=== PATIENT | male | born 1960 | race Caucasian/White ===

== ENCOUNTER 2019-11-14 15:55 | Inpatient (IN) ==
--- OUTSIDE RECORDS SUMMARY | 2019-11-14 16:06 | External Medical Summary | Continuity of Care Document ---
:1960 Author Name Idalia M.DCandace Address Unavailable Unavailable , Care Team Providers Name Role Phone Unavailable Unavailable Unavailable Robert HENRY Unavailable Unavailable Unavailable Unavailable Unavailable Problems Nasal ulcer (478.19) (J34.0) Allergies and Adverse Reactions No Known Drug Allergies (Allergy) Medications Aspirin 81 MG TABS , M.D. Refills: 0 Multiple Vitamins TABS , M.D. Refills: 0 Procedures History of Hernia Repair Status: Complet ed Immunizations Immunizations not documented Family History Unknown Family Member Family history of Denial Of Any Significant Status: Active Comments: Family History Medical History Social History - Smoking Status Tobacco smoking consumption unknown Plan of Treatment Planned Observations Planned Goals not documented Results No Known Results Results not documented
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
[2019-11-14 16:37] LABS: Appearance Urine Clear (Clear); Bacteria Urine Automated Negative (Negative); Blood Urine Negative (Negative); Color Urine Dark Yellow; Glucose Urine UA Negative (Negative); Ketones Urine Trace (Negative); Leukocyte Esterase Urine Negative (Negative); Nitrite Urine Negative (Negative); Protein Urine Trace (Negative); RBC Urine Automated 0-4 /hpf (0-4); Specific Gravity Urine 1.032 (1.000-1.030); Urobilinogen Urine Negative (Negative)
[2019-11-14 16:42] LABS: Bilirubin Urine Negative (Negative); Ictotest Urine Negative (Negative)
[2019-11-14 16:45] LABS: Basophils # (auto) 0.03 K/uL (0-0.2); Basophils % (auto) 0.4 %; Eosinophils # (auto) 0.08 K/uL (0-0.5); Eosinophils % (auto) 1.2 %; Hematocrit (blood only) 46.9 % (42-52); Hemoglobin 15.9 g/dL (14.0-18.0); Immature Granulocytes # (auto) 0.01 K/uL (0.00-0.02); Immature Granulocytes % (auto) 0.1 %; Lymphocytes # (auto) 2.68 K/uL (1.2-3.4); Lymphocytes % (auto) 39.7 %; Mean Corpuscular Hemoglobin 31.3 pg (25-34); Mean Corpuscular Hgb Conc 33.9 g/dL (32-36); Mean Corpuscular Volume 92.3 fL (80-100); Mean Platelet Volume 11.7 fL (7.4-10.4); Monocytes # (auto) 0.39 K/uL (0.11-0.59); Monocytes % (auto) 5.8 %; Neutrophils # (auto) 3.56 K/uL (1.4-6.5); Neutrophils % (auto) 52.8 %; Platelet Count 154 K/uL (130-400); RDW Coefficient of Variation 12.6 % (11.5-14.5); RDW Standard Deviation 42.7 fL (36.4-46.3); Red Blood Count 5.08 M/uL (4.7-6.1); White Blood Count 6.75 K/uL (4.8-10.8)
[2019-11-14 17:01] LABS: Albumin Level 4.4 gm/dl (3.4-5.0); BUN Creatinine Ratio 12.2 (10-20); Creatinine Clr Calc Pharmacy 60.9 ml/min; Est GFR (African American) 75.5; Est GFR (Non-African American) 65.1; Potassium 3.5 mmol/L (3.5-5.1)
[2019-11-14 17:11] LABS: Albumin Globulin Ratio 1.3 (0.9-2); Bilirubin,Total 0.9 mg/dl (0.2-1); Globulin 3.5 gm/dl (2.5-4.0); Thyroid Stimulating Hormone 3.9 uIu/ml (0.300-4.500); Total Protein 7.9 gm/dl (6.4-8.2)
[2019-11-14 17:16] LABS: Acetaminophen < 2 ug/ml (10-30)
[2019-11-14 17:17] LABS: Salicylate < 1.7 mg/dl (2.8-20)
[2019-11-14 17:27] LABS: Amphetamines+Metham, Urine Neg (Neg); Barbiturates, Urine Neg (Neg); Benzodiazepine, Urine Neg (Neg); Cocaine, Urine Neg (Neg); MDMA (Ecstacy), Urine Neg (Neg); Methadone, Urine Neg (Neg); Opiate, Urine Neg (Neg); Phencyclidine, Urine Neg (Neg)
[2019-11-14] MEDS ORDERED: MAGNESIUM HYDROXIDE SUSP 30 ML UDC PO PRN (20:44)
[2019-11-14] MEDS ORDERED: ALUMINUM/MAGNESIUM SUSP 30 ML UDC PO PRN (20:44)
[2019-11-14] MEDS ORDERED: ACETAMINOPHEN 325 MG TAB PO PRN (20:44)
[2019-11-14] MEDS ORDERED: BISMUTH SUBSALICYLATE PER ML OMNICELL CHARGE PO PRN (20:44)
[2019-11-15] MEDS ORDERED: haloperidoL 5 MG TAB PO PRN (09:50)
[2019-11-15] MEDS ORDERED: HALOPERIDOL LACTATE 5 MG/ML 1 ML VIAL IM PRN (09:51)
[2019-11-15] MEDS ORDERED: LORazepam 1 MG TAB PO PRN (09:53)
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
--- NOTE | 2019-11-16 08:34 | Psychiatric Progress Note ---
Date of Service November 16, 2019 Impression / Recommendations Impression 59-year-old gentleman without known prior formalized psychiatric history who presents with several years of worsening paranoia and elaborate systemized delusions regarding [facility] and the government. He demonstrates a manic quality with rapid thought process and speech patterns, and has had poor sleep in the hospital, and underlying bipolar disorder or schizoaffective disorder should be considered in addition to primary thought disorder. It appears he has never been medically worked up for psychosis (and per his he has not seen a physician, dentist or even a coleman in some time due to his paranoia); however symptoms appear likely to be occurring for at least the past few years. He is highly guarded associated with his paranoia and is refusing to participate in assessments, answer questions about the events that led to hospitalization, order to accept any treatment, and agree with the use of medication over objection for treatment of psychosis if needed. We will file for 303 involuntary commitment hearing to be held tomorrow. (1) Unspecified psychosis not due to a substance or known physiological condition: 11/14 Patient admitted on an involuntary status to the behavioral health unit for continued assessment and treatment as indicated He will be maintained on every 15 minute safety checks We will continue to expand database Consider neuroimaging for w/u of psychosis prn orders for Ativan and Haldol today. I suspect it is likely that he will require medications over objection before he permits any treatment due to what appears to be severely impaired insight. Patient will be reevaluated tomorrow for psychiatric second opinion regarding need for treatment over objection. -presently patient requires continued inpatient hospitalization for workup and treatment of psychosis which was been recently associated with some violent behavior at home. he is at risk of harm to self and others if discharged prematurely. 11/15 -File for 303 involuntary commitment. -Patient is refusing to consider medication, but has haloperidol and Ativan as needed ordered. Would recommend a trial of olanzapine, and agree with medications over objection as he has severe psychotic symptoms which are impairing his ability to function and placing both himself and others at risk of harm due to his violent behavior at home. -Patient is refused to answer questions about whether or not he has guns, so we will need to get this information from his . At this point he is refusing to sign a release for her or anyone else. -Excuse patient from groups due to the severity of his psychosis and violent behavior. Medically necessary private room room due to the same. Risk Factors Assessment Male: Yes : Yes Health Problems: No Substance Use Disorders: No Previous Attempt: No Previous Psychiatric Hospitalization: No Hopelessness: No Smoker: No Protective Factors Assessment : Yes Employed: No Interval History Identifying Information SAL MAGANA is a 59-year-old M who currently lives locally with his , has a history of no prior known psychiatric hx, and was admitted on 11/14/19 19:58 on a 302 involuntary commitment for paranoia and violence at home. Chief Complaint " It's an insane situation, not worth going through all the details again." Review of Systems Notes Review of systems unable to be completed due to irritability/uncooperative behavior. Sleep Information Total Hours of Sleep: 2.75 Sleep Comments: pt busy writing notes at the beginning of shift. pt stayed in his room most of the shift. pt on q-15 minute checks Meal Information Percent Meal Consumed - Breakfast: 10 Percent Meal Consumed - Lunch: 100 Percent Meal Consumed - Dinner: 100 Subjective Subjective Patient was seen & assessed and interval progress reviewed with treatment team. Staff report he is sleeping very little, has been excused from groups due to psychosis, and spends all of his time writing and doing math problems. He has been resistant to participation in admission assessments, and is refusing all medications. He is refused to sign a release of information for his or anyone else, and is focused on the conspiracy the government has against him. He said he has not been able to get his haircut for 6 months as the government has been involved and interfered in every aspect of his life. On my assessment, the patient was seen in his room, where he was seated on his bed. He initially says he is sleeping well, but then says he slept very little the last 2 nights, which he attributes to caffeine withdrawal. He says he has been spending all of his time "just doing some mathematics," which is what he does during a typical day. 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 He says he was fired from [employer] because of a conspiracy against him, "and now I have lots of free time, so I just do mathematics on my own now." He says that the police brought him to the hospital and he has no idea why, although they told him that his expressed some concerns and they believed he needed a psychological evaluation. He denies that he was violent or aggressive that day were that there was any kind of altercation between himself and his . He refuses to answer questions about why his might of been concerned about him, repeatedly redirecting the conversation toward the conspiracy against him and stating that if any of the hospital staff really care, they would be asking questions about that, not about his behavior. "It is much more important to look at law enforcement in higher education that got me into this mass, you are just trying to fit me into the narrative they need to justify their actions. I'm a [place] citizen, was twice removed from my classroom by police, and fired, and removed from my house by the police, and my guess is that's all illegal. I should be deported, or Social [employer] should be involved." He said he "sounded a little bit odd someone could contact the police and say things, and they would bring you to the hospital, couldn't you just start doing that here neighbors? That seems insane!" He refused to say what allegedly happened that the police were called, stating "it's all manufactured, it's all lies. The higher education of [employer] [facility] [employer] has engaged in the most ridiculous acts." He multiple times demands that I contact [employer] for him to tell them that a [place] citizen is being held illegally by the [facility] government due to information that he has about crimes that were committed "50 years ago." "Look I'm not stupid, okay, I understand the notion that once crimes are committed, they want to cover them up, and people in power create a situation where you look crazy." He r eferences a situation in [place] in the [place], "they can no longer control it, these are crimes that go back 50 years." He references the treatment recommendations and calls them "silly," and becomes increasingly agitated and angry as the assessment progresses. He continues to refuse to discuss the events that precipitated his hospitalization and the specific concerns outlined in the 302 petition and expressed by his . He was informed of the 303 hearing to be scheduled tomorrow, and continues to be angry and sarcastic, stating "it involves children, you need to know that is what you're covering up!" Physical Exam Psychiatric Orientation: alert; + uncooperative Apperance: appropriately dressed, appropriately groomed and appeared stated age Eye Contact: + fair eye contact Motor Behavior: steady gait and station and no abnormal motor movements Irritable, sarcastic tone Affect: + irritable affect Mood: + angry mood Thought Process: + tangential thought process and + looseness of associations Thought Content: + preoccupation, + paranoid, + delusions and + persecution Suicidal Thoughts: denies suicidal thoughts Homicidal Thoughts: denies homicidal thoughts Unclear if memory is intact, as patient refuses to answer most questions regarding recent events Estimated Intelligence: consistent with education level Insight: + severely impaired insight Judgement: + poor judgement Vital Signs (Past 24 Hours) Last Vital Signs Temp 36.6 C 11/16/19 06:52 Pulse 77 11/16/19 06:52 Resp 18 11/16/19 06:52 BP 128/86 11/16/19 06:52 Pulse Ox 98 11/14/19 20:15 Results & Data ([facility]) Current Inpatient Medications Current Inpatient Medications: Current Inpatient Medications Acetaminophen (Tylenol) 650 mg PO Q4H PRN PRN Reason: Headache or Minor Fever Stop: 12/14/19 20:43 Al Hydrox/Mg Hydrox/Simethicone (Maalox) 30 ml PO Q4H PRN PRN Reason: GI Upset Stop: 12/14/19 20:43 Bismuth Subsalicylate (Kaopectate) 15 ml PO PRN PRN PRN Reason: Loose Stool Stop: 12/14/19 20:43 Haloperidol (Haldol) 5 mg PO Q8H PRN PRN Reason: agitation/psychosis Stop: 12/15/19 09:59 Haloperidol Lactate (Haldol) 5 mg IM Q8H PRN PRN Reason: for behavioral emergency Stop: 12/15/19 09:50 Hydroxyzine HCl (Vistaril) 50 mg PO HSZ PRN PRN Reason: Insomnia Stop: 12/14/19 20:43 Hydroxyzine HCl (Vistaril) 25 mg PO Q4H PRN PRN Reason: Anxiety Stop: 12/14/19 20:43 Lorazepam (Ativan) 1 mg PO Q8H PRN PRN Reason: Anxiety/irritability Stop: 12/15/19 09:52 Magnesium Hydroxide (Milk Of Magnesia) 30 ml PO DAILY PRN PRN Reason: Constipation Stop: 12/14/19 20:43 Sodium Chloride ([place] Nasal) 1 - 2 sprays NA PRN PRN PRN Reason: Nasal Dryness/Congestion Stop: 12/14/19 20:43
--- NOTE | 2019-11-17 08:43 | Psychiatric Progress Note ---
Date of Service November 17, 2019 Impression / Recommendations Impression 59-year-old gentleman without known prior formalized psychiatric history who presents with several years of worsening paranoia and elaborate systemized delusions regarding [facility] and the government. He demonstrates a manic quality with rapid thought process and speech patterns, and has had poor sleep in the hospital, and underlying bipolar disorder or schizoaffective disorder should be considered in addition to primary thought disorder. It appears he has never been medically worked up for psychosis (and per his he has not seen a physician, dentist or even a coleman in some time due to his paranoia); however symptoms have been occurring for at least the past few years. He is highly guarded associated with his paranoia and is refusing to participate in assessments, answer questions about the events that led to hospitalization, or to accept any treatment, and will not allow his to be involved in treatment. He is on a 303 involuntary commitment as of today. (1) Unspecified psychosis not due to a substance or known physiological condition: 11/14 Patient admitted on an involuntary status to the behavioral health unit for continued assessment and treatment as indicated He will be maintained on every 15 minute safety checks We will continue to expand database Consider neuroimaging for w/u of psychosis prn orders for Ativan and Haldol today. I suspect it is likely that he will require medications over objection before he permits any treatment due to what appears to be severely impaired insight. Patient will be reevaluated tomorrow for psychiatric second opinion regarding need for treatment over objection. -presently patient requires continued inpatient hospitalization for workup and treatment of psychosis which was been recently associated with some violent behavior at home. he is at risk of harm to self and others if discharged prematurely. 11/15 -File for 303 involuntary commitment. -Patient is refusing to consider medication, but has haloperidol and Ativan as needed ordered. Would recommend a trial of olanzapine, and agree with medications over objection as he has severe psychotic symptoms which are impairing his ability to function and placing both himself and others at risk of harm due to his violent behavior at home. -Patient is refused to answer questions about whether or not he has guns, so we will need to get this information from his . At this point he is refusing to sign a release for her or anyone else. -Excuse patient from groups due to the severity of his psychosis and violent behavior. Medically necessary private room room due to the same. 11/16 involuntary commitment granted. -Patient continues to refuse to allow his to be involved in treatment. He is now not denying that he was aggressive at home, but is refusing to discuss it, and is focused only on the conspiracy which he says led to his behavior. -Continue to consider medications over objection. At this point, we are attempting to engage the patient in treatment volitionally, and the risk of forcing medications at this time is further alienating him. However, if he is unable to engage in any manner, we will need to reconsider medications over objection. -Patient may attend groups if able to maintain appropriate behavioral control. -Patient has still not been willing to complete admission assessments, and has not been willing to provide certain information. Risk Factors Assessment Male: Yes : Yes Health Problems: No Substance Use Disorders: No Previous Attempt: No Previous Psychiatric Hospitalization: No Hopelessness: No Smoker: No Protective Factors Assessment : Yes Employed: No Interval History Identifying Information SAL MAGANA is a 59-year-old M who currently lives locally with his , has a history of no prior known psychiatric hx, and was admitted on 11/14/19 19:58 on a 302 involuntary commitment for paranoia and violence at home. Chief Complaint "I'm just preparing for the meeting." Review of Systems Sleep Information Total Hours of Sleep: 4.5 Sleep Comments: pt spent the first 3 hrs awake in bed, writing on a pad. pt appeared to be asleep @0300 and thereafter. pt on q-15 minute checks Meal Information Percent Meal Consumed - Breakfast: 100 Percent Meal Consumed - Lunch: 100 Percent Meal Consumed - Dinner: 100 Subjective Subjective Patient was seen & assessed and interval progress reviewed with nursing and social work. Staff report he only slept 4.5 hours. He spent much of the day on the phone, talking animatedly about the conspiracies against him. He continues to express delusions and paranoia, stating the county and hospital are part of the conspiracy against him. He is refusing to sign ROIs or participate in admission assessments. He continues to take notes, do math problems, and spend a lot of time on the phone. He has not attended groups or taken any medication. 1 of the counselors met with him and the patient spent 45 minutes attempting to explain why [employer] fired him. He said that it was all a cover up, and that the hospital was also a part of it. He cites many specifics of his case and insisted there was no delusional thinking involved. On my assessment, he was seen in his room where he was seated on the bed writing, and asked to have another 5 minutes to prepare for his commitment hearing. Upon return 5 minutes later, he stated he has prepared a statement that he wants to read his commitme nt hearing, and thinks that it will "clear some things up." He says that he spoke to his yesterday, and has "no trouble with what she wrote, I think when you hear my statement, you'll know what I mean." He denies that he is angry, and states that he and his love one another, and she is fine with him coming home. He continues to refuse to sign a release for her or to allow her to be involved in treatment, saying "that would probably just be used against me by the very people who orchestrated the whole thing." He continues to state that the doctors are being used to silence him as part of a larger conspiracy. He admits he has not been sleeping well the past 3 nights, which he blames on the environment in the hospital, and says he was sleeping 7 hours a night at home. 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 He eventually stated that his stopped working in 2019 when he was fired. He says that after he makes his statement in the hearing, he wants the statement to be distributed "to society, to make people aware, really important that people know that very important people in power have been compelled to act unwittingly." He says he is asked his research attorney to "contact [employer] to find to be a safe haven." He says that many countries outside of [place] are aware of his story, and that we should be more concerned with the events that led to his hospitalization than his specific behaviors. He participated in a 303 hearing and read a statement he had prepared, stating he grew up in [place] in an [place] family, and there was anti-[place] sentiment which led to the government issuing an apology. He referenced [place] declaring war on [place], and the government using that to infiltrate his life in horrible ways. He started documenting this and experienced "episodes of suppression" to keep him quiet, which includes the AMA and "failed medical procedures" that led to him being in the ICU. He says the assessments here and his 's petition are a result of this conspiracy which was "premeditated over decades" and is "an [place] Horror Story." He asked his research attorney to contact [employer] to rescue him from "this continent." He asked to be immediately released from this unit before more irreparable damage occurs. The 303 commitment was granted, and he stated he was not surprised as the decision was made before the hearing. Physical Exam Psychiatric Orientation: alert and cooperative (Partially, vague and evasive with some lines of questioning) Apperance: appropriately dressed (Wearing the same closes yesterday, seated on his bed in no acute distress, writing on a note pad), appropriately groomed and appeared stated age Eye Contact: + fair eye contact Motor Behavior: steady gait and station and no abnormal motor movements Speech: normal rate/rhythm/volume of speech Affect: + blunted affect "Not too bad." Thought Process: + circumstantial thought process, + tangential thought process, + looseness of associations and + perseveration Thought Content: + preoccupation, + paranoid, + delusions and + persecution Suicidal Thoughts: denies suicidal thoughts Homicidal Thoughts: denies homicidal thoughts Hallucinations: no auditory hallucinations Cognition: attention grossly intact and language grossly intact Estimated Intelligence: consistent with education level Insight: + severely impaired insight Judgement: + poor judgement Vital Signs (Past 24 Hours) Last Vital Signs Temp 36.8 C 11/17/19 06:42 Pulse 62 11/17/19 06:43 Resp 18 11/17/19 06:42 BP 126/75 11/17/19 06:43 Pulse Ox 98 11/14/19 20:15 Results & Data ([facility]) Current Inpatient Medications Current Inpatient Medications: Current Inpatient Medications Acetaminophen (Tylenol) 650 mg PO Q4H PRN PRN Reason: Headache or Minor Fever Stop: 12/14/19 20:43 Al Hydrox/Mg Hydrox/Simethicone (Maalox) 30 ml PO Q4H PRN PRN Reason: GI Upset Stop: 12/14/19 20:43 Bismuth Subsalicylate (Kaopectate) 15 ml PO PRN PRN PRN Reason: Loose Stool Stop: 12/14/19 20:43 Haloperidol (Haldol) 5 mg PO Q8H PRN PRN Reason: agitation/psychosis Stop: 12/15/19 09:59 Haloperidol Lactate (Haldol) 5 mg IM Q8H PRN PRN Reason: for behavioral emergency Stop: 12/15/19 09:50 Hydroxyzine HCl (Vistaril) 50 mg PO HSZ PRN PRN Reason: Insomnia Stop: 12/14/19 20:43 Hydroxyzine HCl (Vistaril) 25 mg PO Q4H PRN PRN Reason: Anxiety Stop: 12/14/19 20:43 Lorazepam (Ativan) 1 mg PO Q8H PRN PRN Reason: Anxiety/irritability Stop: 12/15/19 09:52 Magnesium Hydroxide (Milk Of Magnesia) 30 ml PO DAILY PRN PRN Reason: Constipation Stop: 12/14/19 20:43 Sodium Chloride ([place] Nasal) 1 - 2 sprays NA PRN PRN PRN Reason: Nasal Dryness/Congestion Stop: 12/14/19 20:43 Post Discharge Appointments Primary Care Physician Name Of Family Doctor: Dr. Татьяна Torres
--- NOTE | 2019-11-18 08:47 | Psychiatric Progress Note ---
Date of Service November 18, 2019 Impression / Recommendations Impression 59-year-old gentleman without known prior formalized psychiatric history who presents with several years of worsening paranoia and elaborate systemized delusions regarding [facility] and the government. He demonstrates a manic quality with rapid thought process and speech patterns, and has had poor sleep in the hospital, and underlying bipolar disorder or schizoaffective disorder should be considered in addition to primary thought disorder. It appears he has never been medically worked up for psychosis (and per his he has not seen a physician, dentist or even a coleman in some time due to his paranoia); however symptoms have been occurring for at least the past few years. He is highly guarded associated with his paranoia and is refusing to participate in assessments, answer questions about the events that led to hospitalization, or to accept any treatment, and will not allow his to be involved in treatment. He is on a 303 involuntary commitment, and will institute medications over objection today given the severity of his psychosis, complete lack of insight, and inability to engage in treatment as a result. (1) Unspecified psychosis not due to a substance or known physiological condition: 11/14 Patient admitted on an involuntary status to the behavioral health unit for continued assessment and treatment as indicated He will be maintained on every 15 minute safety checks We will continue to expand database Consider neuroimaging for w/u of psychosis prn orders for Ativan and Haldol today. I suspect it is likely that he will require medications over objection before he permits any treatment due to what appears to be severely impaired insight. Patient will be reevaluated tomorrow for psychiatric second opinion regarding need for treatment over objection. -presently patient requires continued inpatient hospitalization for workup and treatment of psychosis which was been recently associated with some violent behavior at home. he is at risk of harm to self and others if discharged prematurely. 11/15 -File for 303 involuntary commitment. -Patient is refusing to consider medication, but has haloperidol and Ativan as needed ordered. Would recommend a trial of olanzapine, and agree with medications over objection as he has severe psychotic symptoms which are impairing his ability to function and placing both himself and others at risk of harm due to his violent behavior at home. -Patient is refused to answer questions about whether or not he has guns, so we will need to get this information from his . At this point he is refusing to sign a release for her or anyone else. -Excuse patient from groups due to the severity of his psychosis and violent behavior. Medically necessary private room room due to the same. 11/16 - involuntary commitment granted. -Patient continues to refuse to allow his to be involved in treatment. He is now not denying that he was aggressive at home, but is refusing to discuss it, and is focused only on the conspiracy which he says led to his behavior. -Continue to consider medications over objection. At this point, we are at tempting to engage the patient in treatment volitionally, and the risk of forcing medications at this time is further alienating him. However, if he is unable to engage in any manner, we will need to reconsider medications over objection. -Patient may attend groups if able to maintain appropriate behavioral control. -Patient has still not been willing to complete admission assessments, and has not been willing to provide certain information. 11/17 -Recommend medications over objection, as the patient is unable to engage in treatment due to the severity of his psychosis and lack of insight, and remains at imminent risk of harm to others, specifically his , if his symptoms remain untreated. He is floridly delusional, now implicating hospital staff in his delusions. He is not able to work as a result of his psychosis, and his is not able to work due to having to supervise him, and is fearful of him given his escalating violence at home. He continues to refuse to allow her to be involved in treatment, is not attending groups, and is refusing to even discuss medication options. Dr. Duarte recommended medications over objection, and I agree, as the patient is unlikely to improve without antipsychotic medication. -Start olanzapine Zydis 5 mg daily, with a 5 mg IM backup for refusal. Order FLP and FG tomorrow for baseline on an atypical antipsychotic. He will also need a medical work-up of psychosis once he is more cooperative, including brain MRI. -Ongoing poor sleep, staff will limit bright lights near his room at night, and if he can be compliant with medication, can move olanzapine to bedtime to assist with sleep. Giving during the day initially to allow for adequate staff in case of need for physical hold or restraint to receive medication. Risk Factors Assessment Male: Yes : Yes Do You Have Access To A Gun?: No ( denies that they have any guns at home) Health Problems: No Mental Health Diagnoses: Yes Substance Use Disorders: No Previous Attempt: No Previous Psychiatric Hospitalization: No Hopelessness: No Smoker: No Protective Factors Assessment : Yes Responsible for Young Children: No Employed: No Stable Relationships: No ( is supportive, but fearful of him due to his violence towards her.) Good Rapport with Provider: No (No outpatient providers.) Interval History Identifying Information SAL MAGANA is a 59-year-old M who currently lives locally with his , has a history of no prior known psychiatric hx, and was admitted on 11/14/19 19:58 on a 302 involuntary commitment for paranoia and violence at home. Chief Complaint " My focus right now is to find a way to get out of here and tell my story and get protection". Review of Systems Sleep Information Total Hours of Sleep: 4 Sleep Comments: read and wrote on his papers/tablet out in the day area then in his room in bed. he was asleep on 0200 rounds. Meal Information Percent Meal Consumed - Breakfast: 100 Percent Meal Consumed - Lunch: 100 Percent Meal Consumed - Dinner: 100 Subjective Subjective Patient was seen & assessed and interval progress reviewed with treatment team. Staff report his was contacted and informed of the results of the 303 hearing. She reported ongoing fears for her safety, as patient is impulsive, aggressive, and violent, and stated a plan to resume contact with [facility]. She confirmed that there are no guns at home, and stated she does not want the patient to go to [facility] or for him to be homeless, and that they may move to [place] to live with his brother, as they are currently not working and living off their senior living savings. The patient spent most of the day yesterday in his room, writing in a notebook, with superficial responses to staff attempts to engage him in treatment. He refused to attend groups, sign a release for his or anyone else, or discuss events that led to his hospitalization. He continues to sleep very little, 4 hours last night. On my assessment today, he states that he is only concerned with how to get out of the hospital, and is hoping that [employer] will get involved and will remove him to an embassy in a foreign country where he will be safe and will be able to "get my story out." He says "there is a massive and growing effort to stop me from telling the story," repeatedly referencing that "they" are conspiring against him, and when asked where he thinks he will be safe, says "perhaps [place] or somewhere in [place] where there is an interest in protecting free speech, my fear is the [place] effort to stop the story from being told." When asked to "they" is, he says this includes "higher education, [employer], the [employer] police, and the [employer] police," as [employer] fired him, [employer]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 He states that these things "really happened, this is not delusional." He says he has evidence that there is a vast conspiracy against him, and gives an example of documents he has that prove 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 He continues to adamantly refused to discuss his behavior at home that led to his concerns in this hospitalization, and becomes hostile and defensive whenever this is brought up, stating "clearly her agenda is to push the story, you nods her head and move onto things that are a consequence of that. Of course of University does these things and destroys a career, of course someone is going to get angry." He a ccuses the [place] of "creating a narrative of an angry, hostile person, that is what they need, and you are just furthering that. Your agenda is to help the country. I have made the allegation that the [employer] violated the Hippocratic oath in order to silence me and covered up for the country, and you are employed by the [employer], so this is a conflict of interest! You are hired and paid by the [facility] try to create a narrative about me. The people that need to see therapist with the people who set this whole thing up." He adamantly refuses to engage in a discussion of his violent behavior and his 's concerns, and refuses to discuss medication options, repeatedly stating he is not going to take medications, that if we force him to take medications, "I will make this as horrible for you as I can." He then stated he " made my final statement, I am not going to say anymore." Informed him of recommendations for medications over objection, and inform nursing staff. Physical Exam Psychiatric Orientation: alert; + uncooperative Hostile and accusatory Apperance: appropriately dressed (Wearing the same close for the past 3 days), appropriately groomed and appeared stated age Eye Contact: good eye contact Motor Behavior: steady gait and station and no abnormal motor movements Angry tone, increasingly loud, mildly pressured Affect: + irritable affect, + angry affect and + constricted affect Thought Process: + circumstantial thought process, + tangential thought process and + perseveration (On delusions of persecution) Thought Content: + preoccupation, + paranoid, + delusions and + persecution Refuses to discuss acts of violence against his prior to admission Refuses to answer Cognition: language grossly intact Memory impaired by psychosis. Estimated Intelligence: consistent with education level Insight: + severely impaired insight Judgement: + impaired judgement Vital Signs (Past 24 Hours) Last Vital Signs Temp 36.5 C 11/18/19 06:39 Pulse 65 11/18/19 06:40 Resp 18 11/18/19 06:39 BP 121/79 11/18/19 06:40 Pulse Ox 98 11/14/19 20:15 Results & Data ([facility]) Current Inpatient Medications Current Inpatient Medications: Current Inpatient Medications Acetaminophen (Tylenol) 650 mg PO Q4H PRN PRN Reason: Headache or Minor Fever Stop: 12/14/19 20:43 Al Hydrox/Mg Hydrox/Simethicone (Maalox) 30 ml PO Q4H PRN PRN Reason: GI Upset Stop: 12/14/19 20:43 Bismuth Subsalicylate (Kaopectate) 15 ml PO PRN PRN PRN Reason: Loose Stool Stop: 12/14/19 20:43 Haloperidol (Haldol) 5 mg PO Q8H PRN PRN Reason: agitation/psychosis Stop: 12/15/19 09:59 Haloperidol Lactate (Haldol) 5 mg IM Q8H PRN PRN Reason: for behavioral emergency Stop: 12/15/19 09:50 Hydroxyzine HCl (Vistaril) 50 mg PO HSZ PRN PRN Reason: Insomnia Stop: 12/14/19 20:43 Hydroxyzine HCl (Vistaril) 25 mg PO Q4H PRN PRN Reason: Anxiety Stop: 12/14/19 20:43 Lorazepam (Ativan) 1 mg PO Q8H PRN PRN Reason: Anxiety/irritability Stop: 12/15/19 09:52 Magnesium Hydroxide (Milk Of Magnesia) 30 ml PO DAILY PRN PRN Reason: Constipation Stop: 12/14/19 20:43 Sodium Chloride ([place] Nasal) 1 - 2 sprays NA PRN PRN PRN Reason: Nasal Dryness/Congestion Stop: 12/14/19 20:43 Post Discharge Appointments Primary Care Physician Name Of Family Doctor: Dr. Татьяна Torres
[2019-11-18] MEDS: OLANZAPINE ZYDIS 5 MG ORALLY DIS. TAB PO SCH ×2 (11:30→11:31)
[2019-11-18] MEDS: OLANZapine 10 MG/2.1 ML SDV IM PRN (11:31)
[2019-11-19 09:09] LABS: Glucose Fasting 90 mg/dl (70-99)
[2019-11-19 09:16] LABS: Chol HDL Ratio 4; Cholesterol 181 mg/dl (0-200); HDL Cholesterol 41 mg/dl; LDL Cholesterol Calculated 102 mg/dl; Triglycerides 188 mg/dl (0-150); VLDL Cholesterol 38 mg/dl
[2019-11-19] MEDS: OLANZapine 10 MG/2.1 ML SDV IM PRN (09:30)
[2019-11-19] MEDS: OLANZAPINE ZYDIS 5 MG ORALLY DIS. TAB PO SCH (09:47)
--- NOTE | 2019-11-19 11:01 | Psychiatric Progress Note ---
Date of Service November 19, 2019 Impression / Recommendations Impression 59-year-old gentleman without known prior formalized psychiatric history who presents with several years of worsening paranoia and elaborate systemized delusions regarding [facility] and the government. He demonstrates a manic quality with rapid thought process and speech patterns, and has had poor sleep in the hospital, and underlying bipolar disorder or schizoaffective disorder should be considered in addition to primary thought disorder. It appears he has never been medically worked up for psychosis (and per his he has not seen a physician, dentist or even a coleman in some time due to his paranoia); however symptoms have been occurring for at least the past few years. He is highly guarded associated with his paranoia and is refusing to participate in assessments, answer questions about the events that led to hospitalization, or to accept any treatment, and will not allow his to be involved in treatment. He is on a 303 involuntary commitment, with opinions for medications over objection appropriately provided. Pt has been cooperative with daily IM injections of olanzapine - declining offer for PO medications. He continues to be floridly psychotic, demonstrating lack of insight and inability to appropriately engage in treatment at this time. (1) Unspecified psychosis not due to a substance or known physiological condition: 11/14 Patient admitted on an involuntary status to the behavioral health unit for continued assessment and treatment as indicated He will be maintained on every 15 minute safety checks We will continue to expand database Consider neuroimaging for w/u of psychosis prn orders for Ativan and Haldol today. I suspect it is likely that he will require medications over objection before he permits any treatment due to what appears to be severely impaired insight. Patient will be reevaluated tomorrow for psychiatric second opinion regarding need for treatment over objection. -presently patient requires continued inpatient hospitalization for workup and treatment of psychosis which was been recently associated with some violent behavior at home. he is at risk of harm to self and others if discharged prematurely. 11/15 -File for 303 involuntary commitment. -Patient is refusing to consider medication, but has haloperidol and Ativan as needed ordered. Would recommend a trial of olanzapine, and agree with medications over objection as he has severe psychotic symptoms which are impairing his ability to function and placing both himself and others at risk of harm due to his violent behavior at home. -Patient is refused to answer questions about whether or not he has guns, so we will need to get this information from his . At this point he is refusin g to sign a release for her or anyone else. -Excuse patient from groups due to the severity of his psychosis and violent behavior. Medically necessary private room room due to the same. 11/16 - involuntary commitment granted. -Patient continues to refuse to allow his to be involved in treatment. He is now not denying that he was aggressive at home, but is refusing to discuss it, and is focused only on the conspiracy which he says led to his behavior. -Continue to consider medications over objection. At this point, we are attempting to engage the patient in treatment volitionally, and the risk of forcing medications at this time is further alienating him. However, if he is unable to engage in any manner, we will need to reconsider medications over objection. -Patient may attend groups if able to maintain appropriate behavioral control. -Patient has still not been willing to complete admission assessments, and has not been willing to provide certain information. 11/17 -Recommend medications over objection, as the patient is unable to engage in treatment due to the severity of his psychosis and lack of insight, and remains at imminent risk of harm to others, specifically his , if his symptoms remain untreated. He is floridly delusional, now implicating hospital staff in his delusions. He is not able to work as a result of his psychosis, and his is not able to work due to having to supervise him, and is fearful of him given his escalating violence at home. He continues to refuse to allow her to be involved in treatment, is not attending groups, and is refusing to even discuss medication options. Dr. Duarte recommended medications over objection, and I agree, as the patient is unlikely to improve without antipsychotic medication. -Start olanzapine Zydis 5 mg daily, with a 5 mg IM backup for refusal. Order FLP and FG tomorrow for baseline on an atypical antipsychotic. He will also need a medical work-up of psychosis once he is more cooperative, including brain MRI. -Ongoing poor sleep, staff will limit bright lights near his room at night, and if he can be compliant with medication, can move olanzapine to bedtime to assist with sleep. Giving during the day initially to allow for adequate staff in case of need for physical hold or restraint to receive medication. / - Continue olanzapine 5mg daily (offering PO Zydis with IM for refusal) - medications over objection, though patient has been cooperative with his preference for IM administration - Pt offered again PO olanzapine, with the eventual option of converting the medication to HS dosing if he continues to be cooperative - as he reports sedation after receiving the medication - Pt remains delusional and paranoid, unable to discuss examples of how we can assist him during his stay - Maintain MNPR due to level of psychosis - Fasting glucose - wnl at 90; triglycerides elevated at 188, remainder of lipid panel wnl - Continue attempts to coordinate care with patient's Risk Factors Assessment Male: Yes : Yes Do You Have Access To A Gun?: No ( denies that they have any guns at home) Health Problems: No Mental Health Diagnoses: Yes Substance Use Disorders: No Previous Attempt: No Previous Psychiatric Hospitalization: No Hopelessness: No Smoker: No Protective Factors Assessment : Yes Responsible for Young Children: No Employed: No Stable Relationships: No ( is supportive, but fearful of him due to his violence towards her.) Good Rapport with Provider: No (No outpatient providers.) Interval History Identifying Information SAL MAGANA is a 59-year-old M who currently lives locally with his , has a history of no prior known psychiatric hx, and was admitted on 11/14/19 19:58 on a 302 involuntary commitment for paranoia and violence at home. Chief Complaint "Oh, um. Hi. What's your name again?" Review of Systems Notes Constitutional: reports fatigue after receiving olanzapine injection Cardiovascular: denied Respiratory: denied Gastrointestinal: denied Neurological: denied Psychiatric: denies symptoms other than stated above Total of at least 10 systems reviewed, pertinent positives as above and in HPI. Sleep Information Total Hours of Sleep: 4.75 Sleep Comments: pt NPO during the night. pt on q-15 minute checks. Meal Information Percent Meal Consumed - Breakfast: 100 Percent Meal Consumed - Lunch: 100 Percent Meal Consumed - Dinner: 100 Subjective Subjective Patient was seen & assessed and interval progress reviewed with nursing and social work. Staff report the patient has been largely withdrawn to his room, writing or completing math equations. Pt has been cooperative with medications over objection, regularly choosing IM injections despite offer for PO Zyprexa Zydis. Pt did disclose to staff yesterday that he believes there was a chip inserted into his brain, but did not provide details on this. Pt was seen today to assess progress since admission. He did cooperate with receiving IM Zyprexa, but continues to report he does not feel he requires medications. Pt states that the medication does cause him to feel drowsy, but denies other side effects at this time. As it was this provider's first encounter with the patient directly, he took the opportunity to inform this PA-C of the circumstances leading to his admission. We spoke at great length about his perception that he is being manipulated by the [employer] administration and government officials - going as far as to state that the [facility] and [facility] representatives are in on the scheme as well. When asked about his thoughts on his admission thus far, he states "well, I'm not really surprised. When you've been dealing with these things for so many years, it only fits with the sequence of events that you would be dragged out of your home by police and brought to a psychiatric cheema." Pt states that to get angry about his admission would only be "playing into the narrative they are writing." He did not verbalize any reports that he believes staff to be involved in the scheme he believes is being plotted against him, and multiple times states "I know you all are skilled individuals and just doing your jobs." This provider did inquire of the patient what he believes the next steps of this process to be (i.e. treatment on the unit, planning for discharge, affiliation with the University, etc.). Pt states that "as long as they continue to write this narrative against me, and these plans keep coming from such a dark place, there will be no hope that anything can change." Pt did mention several times that he is hopeful to get in contact with [employer] as he believes his only options would be to leave the country entirely. This provider explained to the patient that the core of our treatment is safety - and attempted to discuss his agitation and aggression prior to admission. We discussed that our role, at the very least, would be attempting to ensure safety to self and others within his home in order to consider discharge. Pt continues to not take ownership for his aggressive actions prior to admission, stating that he has been provoked by the individuals against him and that "this is all part of their attempts to continue to write the narrative." Pt did not feel any interventions for stress/anger management would be effective, and simply stated "unless you can get to the core of the government's involvement in this conspiracy, there is nothing you can do for me." At one point during our conve rsation, the patient pulled out a stack of 15-30 pieces of notebook paper from under his pillow - all covered with mathematical equations. Pt was reminded that at this time, it is felt that medications are an essential part of his treatment. He was reminded that he has the option to choose oral medications as opposed to the IM injections. He continues to feel as though "picking up a pill from someone's hand and willingly putting it into my mouth demonstrates a level of voluntary action that I am not interested in conveying. Have I not been cooperative with the injections? Is there an issue?" This provider stated that their was not, and that we will simply continue to offer oral medication. We discussed that if he continues to be cooperative with treatment, consideration to adjust his dosing to bedtime may be pursued - as he does report daytime fatigue from the current morning administration. Pt denied other needs at this time. Physical Exam Psychiatric Orientation: alert and + guarded (superficially cooperative ) Apperance: appropriately dressed and appropriately groomed (longer skinner hair, appearing clean) Eye Contact: good eye contact Motor Behavior: no abnormal motor movements (observed while sitting upright in bed) Speech: + pressured speech (hyperverbal, though not rapid - calm/polite tone) Affect: + blunted affect and + constricted affect Mood: no depressed mood and no anxious mood Thought Process: + circumstantial thought process and + perseveration Thought Content: + paranoid, + delusions and + persecution Suicidal Thoughts: denies suicidal thoughts Homicidal Thoughts: denies homicidal thoughts Estimated Intelligence: + above average estimated intelligence Insight: + severely impaired insight Judgement: + impaired judgement Vital Signs (Past 24 Hours) Last Vital Signs Temp 36.5 C 11/19/19 06:51 Pulse 67 11/19/19 06:52 Resp 18 11/19/19 06:51 BP 126/83 11/19/19 06:52 Pulse Ox 98 11/14/19 20:15 Results & Data ([facility]) Laboratory Results Laboratory Results - last 24 hr 11/19/19 08:08 Fasting Glucose 90 Triglycerides 188 H Cholesterol 181 LDL Cholesterol, Calc 102 VLDL Cholesterol, Calc 38 HDL Cholesterol 41 Cholesterol/HDL Ratio 4 Current Inpatient Medications Current Inpatient Medications: Current Inpatient Medications Acetaminophen (Tylenol) 650 mg PO Q4H PRN PRN Reason: Headache or Minor Fever Stop: 12/14/19 20:43 Al Hydrox/Mg Hydrox/Simethicone (Maalox) 30 ml PO Q4H PRN PRN Reason: GI Upset Stop: 12/14/19 20:43 Bismuth Subsalicylate (Kaopectate) 15 ml PO PRN PRN PRN Reason: Loose Stool Stop: 12/14/19 20:43 Haloperidol (Haldol) 5 mg PO Q8H PRN PRN Reason: agitation/psychosis Stop: 12/15/19 09:59 Haloperidol Lactate (Haldol) 5 mg IM Q8H PRN PRN Reason: for behavioral emergency Stop: 12/15/19 09:50 Hydroxyzine HCl (Vistaril) 50 mg PO HSZ PRN PRN Reason: Insomnia Stop: 12/14/19 20:43 Hydroxyzine HCl (Vistaril) 25 mg PO Q4H PRN PRN Reason: Anxiety Stop: 12/14/19 20:43 Lorazepam (Ativan) 1 mg PO Q8H PRN PRN Reason: Anxiety/irritability Stop: 12/15/19 09:52 Magnesium Hydroxide (Milk Of Magnesia) 30 ml PO DAILY PRN PRN Reason: Constipation Stop: 12/14/19 20:43 Olanzapine (Zyprexa Zydis Od) 5 mg PO QAM [facility] Stop: 12/18/19 09:59 Last Admin: 11/19/19 09:47 Dose: Not Given Documented by: Olanzapine (Zyprexa) 5 mg IM DAILY PRN PRN Reason: refusal of PO medication Stop: 12/18/19 09:59 Last Admin: 11/19/19 09:30 Dose: 5 mg Documented by: Sodium Chloride (Benld Nasal) 1 - 2 sprays NA PRN PRN PRN Reason: Nasal Dryness/Congestion Stop: 12/14/19 20:43 Post Discharge Appointments Primary Care Physician Name Of Family Doctor: Dr. Татьяна Torres
[2019-11-20] MEDS: OLANZAPINE ZYDIS 5 MG ORALLY DIS. TAB PO SCH (09:44)
[2019-11-20] MEDS: OLANZapine 10 MG/2.1 ML SDV IM PRN ×2 (09:53→21:47)
--- NOTE | 2019-11-20 14:36 | Psychiatric Progress Note ---
Date of Service November 20, 2019 Impression / Recommendations Impression 59-year-old gentleman without known prior formalized psychiatric history who presents with several years of worsening paranoia and elaborate systemized delusions regarding [facility] and the government. He demonstrates a manic quality with rapid thought process and speech patterns, and has had poor sleep in the hospital, and underlying bipolar disorder or schizoaffective disorder should be considered in addition to primary thought disorder. It appears he has never been medically worked up for psychosis (and per his he has not seen a physician, dentist or even a coleman in some time due to his paranoia); however symptoms have been occurring for at least the past few years. He is highly guarded associated with his paranoia and is refusing to participate in assessments, answer questions about the events that led to hospitalization, or to accept any treatment, and will not allow his to be involved in treatment. He is on a 303 involuntary commitment, with opinions for medications over objection appropriately provided. Pt has been cooperative with daily IM injections of olanzapine - declining offer for PO medications. He continues to be floridly psychotic, demonstrating lack of insight and inability to appropriately engage in treatment at this time. As of 11/20/2019, the patient was felt to be more pleasant and cooperative. At one point he even considered signing his treatment plan while pointing out that he was aware that signing the document did not mean that he was in agreement with that and, instead, that it was simply acknowledging that we have a plan and have told him about it. However, in the end, he said that he he fears that signing it would suggest that he was in agreement with the problem list and that he requires treatment. We may be seeing some improvement in response to the use of olanzapine 5 mg daily (given intramuscularly based on a medication over objection order). He continues to show symptoms that have a manic quality, in cluding fairly grandiose delusions (he believes that he will somehow bring down the [place] [employer] government and force them to be responsible for the crimes), he is sleeping poorly, his speech is mildly pressured and his thoughts are expressed rapidly and in a circumferential or tangential fashion much of the time. His affect also is fairly expansive. Although the patient absolutely insists that he has no psychiatric illness and that, as he put it, "maybe the staff needs to take the medicine not me," we suspect that the patient may have at least some fleeting insight into the fact that something is wrong. He tells us that he does not need treatment and wants to go home, but continues to engage in the exact behaviors that he has been told will complicate and, therefore, delay his discharge. Although uncooperative with medications, the patient has not engaged in overt dangerous behaviors on the unit. The ongoing concern has to do with his 's description of his behaviors at home, which are believed to be indirect response to, and as a direct function of his mental illness. (1) Unspecified psychosis not due to a substance or known physiological condition: 11/14 Patient admitted on an involuntary status to the behavioral health unit for continued assessment and treatment as indicated He will be maintained on every 15 minute safety checks We will continue to expand database Consider neuroimaging for w/u of psychosis prn orders for Ativan and Haldol today. I suspect it is likely that he will require medications over objection before he permits any treatment due to what appears to be severely impaired insight. Patient will be reevaluated tomorrow for psychiatric second opinion regarding need for treatment over objection. -presently patient requires continued inpatient hospitalization for workup and treatment of psychosis which was been recently associated with some violent behavior at home. he is at risk of harm to self and others if discharged prematurely. 11/15 -File for 303 involuntary commitment. -Patient is refusing to consider medication, but has haloperidol and Ativan as needed ordered. Would recommend a trial of olanzapine, and agree with medications over objection as he has severe psychotic symptoms which are impairing his ability to function and placing both himself and others at risk of harm due to his violent behavior at home. -Patient is refused to answer questions about whether or not he has guns, so we will need to get this information from his . At this point he is refusin g to sign a release for her or anyone else. -Excuse patient from groups due to the severity of his psychosis and violent behavior. Medically necessary private room room due to the same. 11/16 -303 involuntary commitment granted. -Patient continues to refuse to allow his to be involved in treatment. He is now not denying that he was aggressive at home, but is refusing to discuss it, and is focused only on the conspiracy which he says led to his behavior. -Continue to consider medications over objection. At this point, we are attempting to engage the patient in treatment volitionally, and the risk of forcing medications at this time is further alienating him. However, if he is unable to engage in any manner, we will need to reconsider medications over objection. -Patient may attend groups if able to maintain appropriate behavioral control. -Patient has still not been willing to complete admission assessments, and has not been willing to provide certain information. 4 -Recommend medications over objection, as the patient is unable to engage in treatment due to the severity of his psychosis and lack of insight, and remains at imminent risk of harm to others, specifically his , if his symptoms remain untreated. He is floridly delusional, now implicating hospital staff in his delusions. He is not able to work as a result of his psychosis, and his is not able to work due to having to supervise him, and is fearful of him given his escalating violence at home. He continues to refuse to allow her to be involved in treatment, is not attending groups, and is refusing to even discuss medication options. Dr. Duarte recommended medications over objection, and I agree, as the patient is unlikely to improve without antipsychotic medication. -Start olanzapine Zydis 5 mg daily, with a 5 mg IM backup for refusal. Order FLP and FG tomorrow for baseline on an atypical antipsychotic. He will also need a medical work-up of psychosis once he is more cooperative, including brain MRI. -Ongoing poor sleep, staff will limit bright lights near his room at night, and if he can be compliant with medication, can move olanzapine to bedtime to assist with sleep. Giving during the day initially to allow for adequate staff in case of need for physical hold or restraint to receive medication. 4 - Continue olanzapine 5mg daily (offering PO Zydis with IM for refusal) - medications over objection, though patient has been cooperative with his preference for IM administration - Pt offered again PO olanzapine, with the eventual option of converting the medication to HS dosing if he continues to be cooperative - as he reports sedation after receiving the medication - Pt remains delusional and paranoid, unable to discuss examples of how we can assist him during his stay - Maintain MNPR due to level of psychosis - Fasting glucose - wnl at 90; triglycerides elevated at 188, remainder of lipid panel wnl - Continue attempts to coordinate care with patient's 11/19 -Patient is continuing to say that he does not wish for us to speak with his , and he again tells us that he will not sign a consent that will allow us to contact her. As above, his assertion is that he does not want us talking to her because she may tell us things that we will include in the record and that will eventually be used against him, either by the government or by [facility]. As a compromise, the patient says that he will ask his to call us and tell us whether she continues to feel that he is a danger to her, himself, or to anyone else. It was explained that we would also need to be able to talk to her about our concerns and we would need to coordinate aftercare arrangements with her. The patient replied to that by saying simply that he would not allow us to say anything about his care or recommended treatment to her at this time. -There seem to be some early indications that the patient may be responding to olanzapine. Today, when I told him that our concerns about his safety had not to do with his behaviors here in the hospital but, instead, about his behaviors at home (in the community) he quickly responded, "yes, but I am getti ng medication here!" (He almost immediately realized the implication of what he had just said, and he immediately changed the subject and began talking about how various entities were deliberately provoking him into losing his temper and acting in anger. -The patient tells us that he is using the fact that he has been given intramuscular medications against his will as evidence of our being the "dupes" or agents of the entities behind the conspiracy to silence him. He also reiterates that he believes that taking medication voluntarily is tantamount to acknowledging his need for psychiatric treatment, and he tells us that he has absolutely no psychiatric problem at all and does not need any treatment. -Today, we are increasing his olanzapine's as follows. We will begin olanzapine ODT 10 mg at bedtime starting tonight. We have also changed his order for medications over objection to olanzapine 10 mg IM daily for refusal of p.o. olanzapine. -Although the patient's presentation has many of the symptoms of a delusional disorder, persecutory typegiven the elaborate nature of the delusional system, we continue to suspect that what we are seeing is a somewhat atypical jorge, or discrete manic episodes overlaying a underlying delusional disorder. If the explanation for the patient's presentation is symptoms of a manic episode, his prognosis is better. We discussed the possibility of adding an antiobsessional medication which sometimes helps with pure delusional disorders, but the patient says that, absolutely, he will not take any medication that we offer him voluntarily. Risk Factors Assessment Male: Yes : Yes Do You Have Access To A Gun?: No ( denies that they have any guns at home) Health Problems: No Mental Health Diagnoses: Yes Substance Use Disorders: No Previous Attempt: No Previous Psychiatric Hospitalization: No Hopelessness: No Smoker: No Protective Factors Assessment : Yes Responsible for Young Children: No Employed: No Stable Relationships: No ( is supportive, but fearful of him due to his violence towards her.) Good Rapport with Provider: No (No outpatient providers.) Interval History Identifying Information SAL MAGANA is a 59-year-old M who currently lives locally with his , has a history of no prior known psychiatric hx, and was admitted on 11/14/19 19:58 on a 302 involuntary commitment for paranoia and violence at home. Chief Complaint "I know things about what the government and [facility] have done, and they want me to stop my investigation." Review of Systems Sleep Information Total Hours of Sleep: 3.25 Sleep Comments: pt. fell to sleep by 0300 rounds. he read and wrote on his papers out in the day area then in his bedroom where he also did some floor ex ercises. after exercising he came out to the kitchen to get a drink and read/wrote more. he was quiet, made eye contact with staff as we walked by him and smiled or answered questions posed to him. Meal Information Percent Meal Consumed - Breakfast: 100 Percent Meal Consumed - Lunch: 100 Percent Meal Consumed - Dinner: 100 Subjective Subjective Patient was seen & assessed and interval progress reviewed with treatment team. I met with the patient individually in order to assess his current mental status, evaluate his response to treatment, coordinate any necessary changes in the patient's treatment plan with the patient, and address issues, questions and concerns that may arise. The patient was polite and personable during our encounter. I found him sitting crosslegged on his bed. He was in the process of writing multiple pages of what he told me were "mathematical exercises." He showed them to me, and they appear to involve calculus and sets of assumptions. I asked the patient if he was doing this to pass the timer for relaxation, and he explained that he considered it to be important work. I discussed with him the fact that he has been refusing psychiatric medications since admission and had also been refusing to allow us to speak with his . The patient reiterated with me what he reportedly has repeatedly said other staff members, and that is that voluntarily taking medications by mouth would signal ( apparently to the [place] and [place] government, as well as to [facility]) that he was in agreement with his need for medications. He notes that he is not resisting to the medications being given intramuscularly, because he knows that that will be "documented" and that he will be able to use that in a "400 page book" that he is writing regarding the various conspiracies that are being held against him. The patient was able to converse rationally about a number of different subjects, including sports figures, [facility] [employer], [facility], [facility], and several other subjects. However, if triggered to discuss, for example, the reasons that he has been psychiatrically hospitalized he talks at length about government conspiracies, belief that the conspiracy against him is so pervasive that it has co-opted certain undisclosed aspects of his personal life (this tended to come up whenever we were talking about his ) and, in essence, his belief that he has developed clear and convincing "full proof" evidence of unspecified, but systematic abuses of the citizenry. He mentions a reference to human right violations that have been visited against [place]ians in the [facility], [place], although he does not respond to questions regarding the nature of the alleged had human rights violation other than to say "that is why I am writing a 400 page book. Is a very complex." I attempted to talk to the patient about the fact that he could not lawful he be involuntarily confined to a psychiatric hospital or psychiatric unit unless he was actively dangerous to himself or to other people, and I explained that 1 of the reasons we are confining him at the hospital is that his has reported that he has been violent at home by, for example, throwing objects such as chairs against the wall, and pulling apart the door frame so that nails are exposed. The patient says that he will neither "confirm or deny" the 's statements, but, interestingly, when allowed to talk at length he did exactly that by saying something such as "just because I threw a chair I mean, just because it has been alleged that my said that I threw a chair" He tells us that he wants to leave the hospital, and that he wants to go home with his , but when I explained that we would not consider it to be medically appropriate to discharge him to home, given the patient's 's expressed concerns, without being able to discuss issues such as risks, benefits and aftercare plans with his , the patient said that he believed that we would use what his tells us in order to build a case in the medical record against him. I tried to determine whether he had included me into his delusional system by telling him that I had never seen him before and asked him if he thought that I was part of the conspiracy he assured me that he did not believe that but, instead, he repeatedly handed that, somehow, his has been co-opted/duped and that she is likely to say things to us that we, in good daphne, will document and that can be used against him by the government and University administration to silence him or otherwise derail his efforts to expose the human rights violation. He tells me that he wants to be put in touch with [employer] so that he can be taken to a "safe continent," but he was unable to name what he considered to be a safe continent. Asked questions about obsessive-compulsive disorder, and the patient told me that he did not want to cooperate with a psychiatric evaluation. He asked me what may be think of it, and I pointed to his multiple calculations, and wondered if he, for example, found that he always search for patterns in numbers or letters, or if he bathe excessively, or if he had trouble discarding items, or frequently had a check. He told me that he cannot endorse any of those features. I gently challenged some of the patient's believes, and, for the most part, had already considered the challenge and had a rapid explanatory response. However, it also seemed apparent that on several occasions I made points that he had not considered, and in those instances he simply fell back on his reference to the matter being extremely complicated and that it would take "hours" to explain at all. Physical Exam Psychiatric Orientation: alert, oriented x 3 and cooperative Apperance: appropriately dressed and appropriately groomed Eye Contact: good eye contact Motor Behavior: steady gait and station Speech: + pressured speech The patient's speech is voluminous, and slightly pressured. It becomes necessary to interrupt him frequently, and sometimes he is not interruptible. Patient's affect is expansive, and he can become quite animated and enthusiastic, depending upon the subject matter. "I am perfectly normal. There is nothing wrong with my mood." Thought Process: + circumstantial thought process Although the patient's thought processes do not demonstrate the rapidity with which flight of ideas are usually associated, the patient's thoughts are often tangential or circumferential, and it becomes necessary periodically to bring him back to the original question or the original point that he had started to make. Thought Content: + delusions Suicidal Thoughts: denies suicidal thoughts Homicidal Thoughts: denies homicidal thoughts Hallucinations: no auditory hallucinations and no visual hallucinations Cognition: recent memory grossly intact, remote memory grossly intact and language grossly intact Estimated Intelligence: + above average estimated intelligence Insight: + severely impaired insight Judgement: + poor judgement Vital Signs (Past 24 Hours) Last Vital Signs Temp 36.6 C 11/20/19 06:46 Pulse 67 11/20/19 06:46 Resp 18 11/20/19 06:46 BP 120/76 11/20/19 06:46 Pulse Ox 98 11/14/19 20:15 Results & Data ([facility]) Current Inpatient Medications Current Inpatient Medications: Current Inpatient Medications Acetaminophen (Tylenol) 650 mg PO Q4H PRN PRN Reason: Headache or Minor Fever Stop: 12/14/19 20:43 Al Hydrox/Mg Hydrox/Simethicone (Maalox) 30 ml PO Q4H PRN PRN Reason: GI Upset Stop: 12/14/19 20:43 Bismuth Subsalicylate (Kaopectate) 15 ml PO PRN PRN PRN Reason: Loose Stool Stop: 12/14/19 20:43 Haloperidol (Haldol) 5 mg PO Q8H PRN PRN Reason: agitation/psychosis Stop: 12/15/19 09:59 Haloperidol Lactate (Haldol) 5 mg IM Q8H PRN PRN Reason: for behavioral emergency Stop: 12/15/19 09:50 Hydroxyzine HCl (Vistaril) 50 mg PO HSZ PRN PRN Reason: Insomnia Stop: 12/14/19 20:43 Hydroxyzine HCl (Vistaril) 25 mg PO Q4H PRN PRN Reason: Anxiety Stop: 12/14/19 20:43 Lorazepam (Ativan) 1 mg PO Q8H PRN PRN Reason: Anxiety/irritability Stop: 12/15/19 09:52 Magnesium Hydroxide (Milk Of Magnesia) 30 ml PO DAILY PRN PRN Reason: Constipation Stop: 12/14/19 20:43 Sodium Chloride ([place] Nasal) 1 - 2 sprays NA PRN PRN PRN Reason: Nasal Dryness/Congestion Stop: 12/14/19 20:43 Post Discharge Appointments Primary Care Physician Name Of Family Doctor: Dr. Татьяна Torres
[2019-11-20] MEDS: OLANZAPINE ZYDIS 10 MG ORALLY DIS. TAB PO SCH (21:47)
[2019-11-20] MEDS: SODIUM CHLORIDE 0.65% NA SOLN 45 ML (OCEAN) PRN (23:10)
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
[2019-11-21] MEDS: OLANZapine 10 MG/2.1 ML SDV IM PRN (21:33)
[2019-11-21] MEDS: OLANZAPINE ZYDIS 10 MG ORALLY DIS. TAB PO SCH (21:46)
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
[2019-11-22] MEDS: OLANZapine 10 MG/2.1 ML SDV IM PRN (21:28)
[2019-11-22] MEDS: OLANZAPINE ZYDIS 10 MG ORALLY DIS. TAB PO SCH (22:08)
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
[2019-11-23] MEDS: OLANZAPINE ZYDIS 10 MG ORALLY DIS. TAB PO SCH (21:45)
[2019-11-23] MEDS: OLANZapine 10 MG/2.1 ML SDV IM PRN (21:45)
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
[2019-11-24] MEDS: OLANZAPINE ZYDIS 10 MG ORALLY DIS. TAB PO SCH (21:37)
[2019-11-24] MEDS: OLANZapine 10 MG/2.1 ML SDV IM PRN (21:37)
--- NOTE | 2019-11-25 08:10 | Psychiatric Progress Note ---
Date of Service November 25, 2019 Impression / Recommendations Impression 59-year-old gentleman without known prior formalized psychiatric history who presents with several years of worsening paranoia and elaborate systemized delusions regarding [facility] and the government. Continues to lack insight into his condition and need for treatment, inpatient hospitalization remains least restrictive care. Although he has been calm here, he was increasingly agitated and violent with his at home prior to admission, and believes she is part of the conspiracy against him. He is refusing to involve her in treatment, and although he is accepting IM Zyprexa here, he is refusing to continue meds after discharge and to follow up as an outpatient, so remains at high risk for return to violent behavior toward her if released. (1) Unspecified psychosis not due to a substance or known physiological condition: italics are reviewed from [facility] providers: 11/14 Patient admitted on an involuntary status to the behavioral health unit for continued assessment and treatment as indicated He will be maintained on every 15 minute safety checks We will continue to expand database Consider neuroimaging for w/u of psychosis prn orders for Ativan and Haldol today. I suspect it is likely that he will require medications over objection before he permits any treatment due to what appears to be severely impaired insight. Patient will be reevaluated tomorrow for psychiatric second opinion regarding need for treatment over objection. -presently patient requires continued inpatient hospitalization for workup and treatment of psychosis which was been recently associated with some violent behavior at home. he is at risk of harm to self and others if discharged prematurely. 11/15 -File for 303 involuntary commitment. -Patient is refusing to consider medication, but has haloperidol and Ativan as needed ordered. Would recommend a trial of olanzapine, and agree with medications over objection as he has severe psychotic symptoms which are impairing his ability to function and placing both himself and others at risk of harm due to his violent behavior at home. -Patient is refused to answer questions about whether or not he has guns, so we will need to get this information from his . At this point he is refusing to sign a release for her or anyone else. -Excuse patient from groups due to the severity of his psychosis and violent behavior. Medically necessary private room room due to the same. 11/16 -303 involuntary commitment granted. -Patient continues to refuse to allow his to be involved in treatment. He is now not denying that he was aggressive at home, but is refusing to discuss it, and is focused only on the conspiracy which he says led to his behavior. -Continue to consider medications over objection. At this point, we are attempting to engage the patient in treatment volitionally, and the risk of forcing medications at this time is further alienating him. However, if he is unable to engage in any manner, we will need to reconsider medications over objection. -Patient may attend groups if able to maintain appropriate behavioral control. -Patient has still not been willing to complete admission assessments, and has not been willing to provide certain information. 11/17 -Recommend medications over objection, as the patient is unable to engage in treatment due to the severity of his psychosis and lack of insight, and remains at imminent risk of harm to others, specifically his , if his symptoms remain untreated. He is floridly delusional, now implicating hospital staff in his delusions. He is not able to work as a result of his psychosis, and his is not able to work due to having to supervise him, and is fearful of him given his escalating violence at home. He continues to refuse to allow her to be involved in treatment, is not attending groups, and is refusing to even discuss medication options. Dr. Duarte recommended medications over objection, and I agree, as the patient is unlikely to improve without antipsychotic medication. -Start olanzapine Zydis 5 mg daily, with a 5 mg IM backup for refusal. Order FLP and FG tomorrow for baseline on an atypical antipsychotic. He will also need a medical work-up of psychosis once he is more cooperative, including brain MRI. -Ongoing poor sleep, staff will limit bright lights near his room at night, and if he can be compliant with medication, can move olanzapine to bedtime to assist with sleep. Giving during the day initially to allow for adequate staff in case of need for physical hold or restraint to receive medication. 11/18 - Continue olanzapine 5mg daily (offering PO Zydis with IM for refusal) - medications over objection, though patient has been cooperative with his preference for IM administration - Pt offered again PO olanzapine, with the eventual option of converting the medication to HS dosing if he continues to be cooperative - as he reports sedation after receiving the medication - Pt remains delusional and paranoid, unable to discuss examples of how we can assist him during his stay - Maintain MNPR due to level of psychosis - Fasting glucose - wnl at 90; triglycerides elevated at 188, remainder of lipid panel wnl - Continue attempts to coordinate care with patient's / -Patient is continuing to say that he does not wish for us to speak with his , and he again tells us that he will not sign a consent that will allow us to contact her. As above, his assertion is that he does not want us talking to her because she may tell us things that we will include in the record and that will eventually be used against him, either by the government or by [facility]. As a compromise, the patient says that he will ask his to call us and tell us whether she continues to feel that he is a danger to her, himself, or to anyone else. It was explained that we would also need to be able to talk to her about our concerns and we would need to coordinate aftercare arrangements with her. The patient replied to that by saying simply that he would not allow us to say anything about his care or recommended treatment to her at this time. -There seem to be some early indications that the patient may be responding to olanzapine. Today, when I told him that our concerns about his safety had not to do with his behaviors here in the hospital but, instead, about his behaviors at home (in the community) he quickly responded, "yes, but I am getting medication here!" (He almost immediately realized the implication of what he had just said, and he immediately changed the subject and began talking about how various entities were deliberately provoking him into losing his temper and acting in anger. -The patient tells us that he is using the fact that he has been given intramuscular medications against his will as evidence of our being the "dupes" or agents of the entities behind the conspiracy to silence him. He also reiterates that he believes that taking medication voluntarily is tantamount to acknowledging his need for psychiatric treatment, and he tells us that he has absolutely no psychiatric problem at all and does not need any treatment. -Today, we are increasing his olanzapine's as follows. We will begin olanzapine ODT 10 mg at bedtime starting tonight. We have also changed his order for medications over objection to olanzapine 10 mg IM daily for refusal of p.o. olanzapine. -Although the patient's presentation has many of the symptoms of a delusional disorder, persecutory typegiven the elaborate nature of the delusional system, we continue to suspect that what we are seeing is a somewhat atypical jorge, or discrete manic episodes overlaying a underlying delusional disorder. If the explanation for the patient's presentation is symptoms of a manic episode, his prognosis is better. We discussed the possibility of adding an antiobsessional medication which sometimes helps with pure delusional disorders, but the patient says that, absolutely, he will not take any medication that we offer him voluntarily. 11/22--continue Zyprexa IM hs, continues to refuse family meeting with due to paranoia, refuses 2-3 trial of PO Invega to convert to injectable. 11/23--File for 304 hearing d/t ongoing psychosis, lack of insight, refusal for outpatient treatment or ongoing medication, refusal to involve , and high risk for return to violent behavior if home w/ , whom he believes is part of the conspiracy against him. 11/24 - Continue olanzapine IM, continuing to offer patient PO medication which he is consistently refusing - Pt continues to refuse to involve in conversations regarding discharge and safety planning - 304 hearing scheduled for 11/30; pt continues to be psychotic and remains unable to engage in productive safety and discharge planing, therefore remains at high risk of harm to sefl or others if he is discharged home in his current state Risk Factors Assessment Male: Yes : Yes Do You Have Access To A Gun?: No ( denies that they have any guns at home) Health Problems: No Mental Health Diagnoses: Yes Substance Use Disorders: No Previous Attempt: No Previous Psychiatric Hospitalization: No Hopelessness: No Smoker: No Protective Factors Assessment : Yes Responsible for Young Children: No Employed: No Stable Relationships: No ( is supportive, but fearful of him due to his violence towards her.) Good Rapport with Provider: No (No outpatient providers.) Interval History Identifying Information SAL MAGANA is a 59-year-old M admitted on 11/14/19 19:58 on a 302 involuntary commitment for paranoia and violence at home, currently on a 303 extended involuntary commitment. Chief Complaint "Oh, well. I've been taking the medication like you've required. As far as I can see, there is no benefit to taking the medication." Review of Systems Notes Constitutional: reports daytime fatigue Cardiovascular: denied Respiratory: denied Gastrointestinal: denied Musculoskeletal: reports "body soreness" Neurological: denied Psychiatric: denies symptoms other than stated above Total of at least 10 systems reviewed, pertinent positives as above and in HPI. Sleep Information Total Hours of Sleep: 4.25 Sleep Comments: pt JOYCE @0400 and thereafter. pt wrote on his pad in the dayarea during the night. pt on q-15 minute checks. pt pleasant and quiet. Meal Information Percent Meal Consumed - Breakfast: 100 Percent Meal Consumed - Lunch: 100 Percent Meal Consumed - Dinner: 100 Nutrition Comment: per meal record Subjective Subjective Patient was seen & assessed and interval progress reviewed with treatment team. Staff report the patient has continued his general routine of waking early in the morning, writing and completing math problems, eating meals, and isolating in his room. He has continued to refuse to engage in conversations to address his delusions and has been refusing to involve his in safety/discharge planning. Pt was seen today to assess progress since admission. Pt states that he is busy working on his math problems. He reports that although he is feeling less tired during the day, he continues to feel that continued use of olanzapine "is not benefitting me in any way, and is in-fact causing me harm, so therefore I don't think it is necessary." Pt states that fatigue and muscle soreness are his biggest complaints with the medication. He does, however, also admit to doing many sit-ups and push-ups daily. Pt was asked if he feels the medication has had any effect on his thoughts, to which he states "how do you expect me to answer that question? I'm damned if I answer and damned if I don't. What is it that you want me to say?" Pt went on to state, "What you need to do, is you need to track down the [employer] officials and ask them about what was going on with a 4-year-old boy at the [facility]. That's what needs to be done." Pt was asked how he thought it would be possible that this information could be released to us - to which he stated "that's the point. They wouldn't tell you either. So then nothing changes. You can keep me here and keep making me miserable, but it will not change anything." This provider reminded patient that at the very basic level of his stay, we need to be able to discuss safety and discharge planning with his outpatient supports. He continues to decline involvement of his , stating "you just want to be able to talk to her and tell her more about your scheme, I'm not going to allow that." Pt then stated "and now that you have upset me and distracted me from my work, can you let me get back to it?" As it was clear patient was not interested in engaging in further conversation, this provider ended the conversation and allowed the patient to continue his math problems. Physical Exam Psychiatric Orientation: alert, oriented x 3 and + guarded (irritable, limited willingness to participate in productive conversation) Apperance: appropriately dressed (though wears same clothes for several days) and appropriately groomed (hair is long, appearing unkempt) Eye Contact: good eye contact Motor Behavior: no abnormal motor movements (observed while sitting upright in chair) Speech: normal rate/rhythm/volume of speech (irritable, condescending tone) Affect: + irritable affect Mood: + angry mood Thought Process: + perseveration Thought Content: + preoccupation, + paranoid, + delusions and + persecution Suicidal Thoughts: denies suicidal thoughts and denies suicidal intent Homicidal Thoughts: denies homicidal thoughts Hallucinations: no auditory hallucinations and no visual hallucinations Cognition: attention grossly intact and language grossly intact Estimated Intelligence: consistent with education level Insight: + poor insight Judgement: + impaired judgement Vital Signs (Past 24 Hours) Last Vital Signs Temp 36.5 C 11/25/19 06:46 Pulse 68 11/25/19 06:47 Resp 18 11/25/19 06:46 BP 133/89 11/25/19 06:47 Pulse Ox 98 11/14/19 20:15 Results & Data ([facility]) Current Inpatient Medications Current Inpatient Medications: Current Inpatient Medications Acetaminophen (Tylenol) 650 mg PO Q4H PRN PRN Reason: Headache or Minor Fever Stop: 12/14/19 20:43 Al Hydrox/Mg Hydrox/Simethicone (Maalox) 30 ml PO Q4H PRN PRN Reason: GI Upset Stop: 12/14/19 20:43 Bismuth Subsalicylate (Kaopectate) 15 ml PO PRN PRN PRN Reason: Loose Stool Stop: 12/14/19 20:43 Haloperidol (Haldol) 5 mg PO Q8H PRN PRN Reason: agitation/psychosis Stop: 12/15/19 09:59 Haloperidol Lactate (Haldol) 5 mg IM Q8H PRN PRN Reason: for behavioral emergency Stop: 12/15/19 09:50 Hydroxyzine HCl (Vistaril) 50 mg PO HSZ PRN PRN Reason: Insomnia Stop: 12/14/19 20:43 Hydroxyzine HCl (Vistaril) 25 mg PO Q4H PRN PRN Reason: Anxiety Stop: 12/14/19 20:43 Lorazepam (Ativan) 1 mg PO Q8H PRN PRN Reason: Anxiety/irritability Stop: 12/15/19 09:52 Magnesium Hydroxide (Milk Of Magnesia) 30 ml PO DAILY PRN PRN Reason: Constipation Stop: 12/14/19 20:43 Olanzapine (Zyprexa Zydis Od) 10 mg PO HS ADRIANE Stop: 12/20/19 21:59 Last Admin: 11/24/19 21:37 Dose: Not Given Documented by: Olanzapine (Zyprexa) 7.5 mg IM DAILY PRN PRN Reason: Refusal of PO Olanzapine Stop: 12/20/19 13:44 Last Admin: 11/24/19 21:37 Dose: 7.5 mg Documented by: Sodium Chloride ([place] Nasal) 1 - 2 sprays NA PRN PRN PRN Reason: Nasal Dryness/Congestion Stop: 12/14/19 20:43 Last Admin: 11/20/19 23:10 Dose: 2 sprays Documented by: Post Discharge Appointments Primary Care Physician Name Of Family Doctor: [facility] [facility] - Dr. Jeffrey Torres Primary Care Provider Appointment Comment: [address], [address], [place] [address] Other #1: Name of Aftercare Appointment: [facility] - Preeti Kelly Phone Number of Aftercare Appointment: [phone] Contact Information Discharge Discharge Address: [address], [address], [place] [address]
[2019-11-25] MEDS: OLANZapine 10 MG/2.1 ML SDV IM PRN (21:48)
[2019-11-25] MEDS: OLANZAPINE ZYDIS 10 MG ORALLY DIS. TAB PO SCH (21:49)
--- NOTE | 2019-11-26 08:49 | Psychiatric Progress Note ---
Date of Service November 26, 2019 Impression / Recommendations Impression 59-year-old gentleman without known prior formalized psychiatric history who presents with several years of worsening paranoia and elaborate systemized delusions regarding [facility] and the government. Continues to lack insight into his condition and need for treatment, inpatient hospitalization remains least restrictive care. Although he has been calm here, he was increasingly agitated and violent with his at home prior to admission, and believes she is part of the conspiracy against him. He is refusing to involve her in treatment, and although he is accepting IM Zyprexa here, he is refusing to continue meds after discharge and to follow up as an outpatient, so remains at high risk for return to violent behavior toward her if released. (1) Unspecified psychosis not due to a substance or known physiological condition: italics are reviewed from [facility] providers: 11/14 Patient admitted on an involuntary status to the behavioral health unit for continued assessment and treatment as indicated He will be maintained on every 15 minute safety checks We will continue to expand database Consider neuroimaging for w/u of psychosis prn orders for Ativan and Haldol today. I suspect it is likely that he will require medications over objection before he permits any treatment due to what appears to be severely impaired insight. Patient will be reevaluated tomorrow for psychiatric second opinion regarding need for treatment over objection. -presently patient requires continued inpatient hospitalization for workup and treatment of psychosis which was been recently associated with some violent behavior at home. he is at risk of harm to self and others if discharged prematurely. 11/15 -File for 303 involuntary commitment. -Patient is refusing to consider medication, but has haloperidol and Ativan as needed ordered. Would recommend a trial of olanzapine, and agree with medications over objection as he has severe psychotic symptoms which are impairing his ability to function and placing both himself and others at risk of harm due to his violent behavior at home. -Patient is refused to answer questions about whether or not he has guns, so we will need to get this information from his . At this point he is refusing to sign a release for her or anyone else. -Excuse patient from groups due to the severity of his psychosis and violent behavior. Medically necessary private room room due to the same. 11/16 -303 involuntary commitment granted. -Patient continues to refuse to allow his to be involved in treatment. He is now not denying that he was aggressive at home, but is refusing to discuss it, and is focused only on the conspiracy which he says led to his behavior. -Continue to consider medications over objection. At this point, we are attempting to engage the patient in treatment volitionally, and the risk of forcing medications at this time is further alienating him. However, if he is unable to engage in any manner, we will need to reconsider medications over objection. -Patient may attend groups if able to maintain appropriate behavioral control. -Patient has still not been willing to complete admission assessments, and has not been willing to provide certain information. 11/17 -Recommend medications over objection, as the patient is unable to engage in treatment due to the severity of his psychosis and lack of insight, and remains at imminent risk of harm to others, specifically his , if his symptoms remain untreated. He is floridly delusional, now implicating hospital staff in his delusions. He is not able to work as a result of his psychosis, and his is not able to work due to having to supervise him, and is fearful of him given his escalating violence at home. He continues to refuse to allow her to be involved in treatment, is not attending groups, and is refusing to even discuss medication options. Dr. Duarte recommended medications over objection, and I agree, as the patient is unlikely to improve without antipsychotic medication. -Start olanzapine Zydis 5 mg daily, with a 5 mg IM backup for refusal. Order FLP and FG tomorrow for baseline on an atypical antipsychotic. He will also need a medical work-up of psychosis once he is more cooperative, including brain MRI. -Ongoing poor sleep, staff will limit bright lights near his room at night, and if he can be compliant with medication, can move olanzapine to bedtime to assist with sleep. Giving during the day initially to allow for adequate staff in case of need for physical hold or restraint to receive medication. 11/18 - Continue olanzapine 5mg daily (offering PO Zydis with IM for refusal) - medications over objection, though patient has been cooperative with his preference for IM administration - Pt offered again PO olanzapine, with the eventual option of converting the medication to HS dosing if he continues to be cooperative - as he reports sedation after receiving the medication - Pt remains delusional and paranoid, unable to discuss examples of how we can assist him during his stay - Maintain MNPR due to level of psychosis - Fasting glucose - wnl at 90; triglycerides elevated at 188, remainder of lipid panel wnl - Continue attempts to coordinate care with patient's / -Patient is continuing to say that he does not wish for us to speak with his , and he again tells us that he will not sign a consent that will allow us to contact her. As above, his assertion is that he does not want us talking to her because she may tell us things that we will include in the record and that will eventually be used against him, either by the government or by [facility]. As a compromise, the patient says that he will ask his to call us and tell us whether she continues to feel that he is a danger to her, himself, or to anyone else. It was explained that we would also need to be able to talk to her about our concerns and we would need to coordinate aftercare arrangements with her. The patient replied to that by saying simply that he would not allow us to say anything about his care or recommended treatment to her at this time. -There seem to be some early indications that the patient may be responding to olanzapine. Today, when I told him that our concerns about his safety had not to do with his behaviors here in the hospital but, instead, about his behaviors at home (in the community) he quickly responded, "yes, but I am getting medication here!" (He almost immediately realized the implication of what he had just said, and he immediately changed the subject and began talking about how various entities were deliberately provoking him into losing his temper and acting in anger. -The patient tells us that he is using the fact that he has been given intramuscular medications against his will as evidence of our being the "dupes" or agents of the entities behind the conspiracy to silence him. He also reiterates that he believes that taking medication voluntarily is tantamount to acknowledging his need for psychiatric treatment, and he tells us that he has absolutely no psychiatric problem at all and does not need any treatment. -Today, we are increasing his olanzapine's as follows. We will begin olanzapine ODT 10 mg at bedtime starting tonight. We have also changed his order for medications over objection to olanzapine 10 mg IM daily for refusal of p.o. olanzapine. -Although the patient's presentation has many of the symptoms of a delusional disorder, persecutory typegiven the elaborate nature of the delusional system, we continue to suspect that what we are seeing is a somewhat atypical jorge, or discrete manic episodes overlaying a underlying delusional disorder. If the explanation for the patient's presentation is symptoms of a manic episode, his prognosis is better. We discussed the possibility of adding an antiobsessional medication which sometimes helps with pure delusional disorders, but the patient says that, absolutely, he will not take any medication that we offer him voluntarily. 11/22--continue Zyprexa IM hs, continues to refuse family meeting with due to paranoia, refuses 2-3 trial of PO Invega to convert to injectable. 11/23--File for 304 hearing d/t ongoing psychosis, lack of insight, refusal for outpatient treatment or ongoing medication, refusal to involve , and high risk for return to violent behavior if home w/ , whom he believes is part of the conspiracy against him. 11/24 - Continue olanzapine IM, continuing to offer patient PO medication which he is consistently refusing - Pt continues to refuse to involve in conversations regarding discharge and safety planning - 304 hearing scheduled for 11/30; pt continues to be psychotic and remains unable to engage in productive safety and discharge planing, therefore remains at high risk of harm to sefl or others if he is discharged home in his current state 11/25 - Titrating olanzapine to 10mg daily; patient continues to refuse offer for PO and is therefore continuing to receive IM injections each evening - 304 hearing 11/30; pt continues to be unwilling to participate in safety and discharge planning efforts Risk Factors Assessment Male: Yes : Yes Do You Have Access To A Gun?: No ( denies that they have any guns at home) Health Problems: No Mental Health Diagnoses: Yes Substance Use Disorders: No Previous Attempt: No Previous Psychiatric Hospitalization: No Hopelessness: No Smoker: No Protective Factors Assessment : Yes Responsible for Young Children: No Employed: No Stable Relationships: No ( is supportive, but fearful of him due to his violence towards her.) Good Rapport with Provider: No (No outpatient providers.) Interval History Identifying Information SAL MAGANA is a 59-year-old M admitted on 11/14/19 19:58 on a 302 involuntary commitment for paranoia and violence at home, currently on a 303 extended involuntary commitment. Chief Complaint "I'm doing fine. How are you?" Review of Systems Notes Constitutional: reports ongoing fatigue Cardiovascular: denied Respiratory: denied Gastrointestinal: denied Neurological: denied Psychiatric: denies symptoms other than stated above Total of at least 10 systems reviewed, pertinent positives as above and in HPI. Sleep Information Total Hours of Sleep: 3.5 Sleep Comments: awake at 0345. Meal Information Percent Meal Consumed - Breakfast: 100 Percent Meal Consumed - Lunch: 100 Percent Meal Consumed - Dinner: 100 Nutrition Comment: per meal record Subjective Subjective Patient was seen & assessed and interval progress reviewed with nursing and social work. Staff report the patient was largely isolative yesterday, completing his math equations but not routinely interacting with peers or staff. Pt was seen today to assess progress since admission. Pt states that he is "doing fine" and seems somewhat resistant to speak with this provider today. He is cooperative with initial superficial conversation topics, stating he is continuing "his work" and "not much more than that." Pt reports he continue to experience fatigue from olanzapine. Pt was offered to discuss other medication options if he should be willing to take it consistent - to which he responded "I will not." Pt was reminded again of our desire to ensure safety and work toward discharge. He states "I know, I know...and I'm not planning to do that. I know what you all are trying to do." Pt was limited in his willingness to discuss additional topics. Pt was reminded of plan for 304 hearing next week, as well as the potential outcomes of eventual discharge, discharge on involuntary outpatient commitment, or possible referral to the [facility]. Pt verbalized understanding of these possible outcomes. When asked his thoughts on this topic, the patient states "I have no thoughts, you guys are going to do what you want to do." Pt was reminded of our treatment goals and our desire to offer assistance to him to work toward discharge home. He denied other needs or concerns, and again requested to get back to his "work". Physical Exam Psychiatric Orientation: alert and oriented x 3 Apperance: appropriately dressed and + disheveled (adequate hygiene and appearing unkempt) Eye Contact: + fair eye contact (intermittently distracted by work ) Motor Behavior: no abnormal motor movements (observed while sitting upright in chair ) Speech: normal rate/rhythm/volume of speech Affect: + irritable affect Mood: no depressed mood ("Oh, I'm just fine") Thought Process: + perseveration Thought Content: + paranoid, + delusions and + persecution Cognition: attention grossly intact and language grossly intact Insight: + impaired insight Judgement: + poor judgement Vital Signs (Past 24 Hours) Last Vital Signs Temp 36.5 C 11/26/19 06:43 Pulse 62 11/26/19 06:44 Resp 16 11/26/19 06:43 BP 131/83 11/26/19 06:44 Pulse Ox 98 11/14/19 20:15 Results & Data ([facility]) Current Inpatient Medications Current Inpatient Medications: Current Inpatient Medications Acetaminophen (Tylenol) 650 mg PO Q4H PRN PRN Reason: Headache or Minor Fever Stop: 12/14/19 20:43 Al Hydrox/Mg Hydrox/Simethicone (Maalox) 30 ml PO Q4H PRN PRN Reason: GI Upset Stop: 12/14/19 20:43 Bismuth Subsalicylate (Kaopectate) 15 ml PO PRN PRN PRN Reason: Loose Stool Stop: 12/14/19 20:43 Haloperidol (Haldol) 5 mg PO Q8H PRN PRN Reason: agitation/psychosis Stop: 12/15/19 09:59 Haloperidol Lactate (Haldol) 5 mg IM Q8H PRN PRN Reason: for behavioral emergency Stop: 12/15/19 09:50 Hydroxyzine HCl (Vistaril) 50 mg PO HSZ PRN PRN Reason: Insomnia Stop: 12/14/19 20:43 Hydroxyzine HCl (Vistaril) 25 mg PO Q4H PRN PRN Reason: Anxiety Stop: 12/14/19 20:43 Lorazepam (Ativan) 1 mg PO Q8H PRN PRN Reason: Anxiety/irritability Stop: 12/15/19 09:52 Magnesium Hydroxide (Milk Of Magnesia) 30 ml PO DAILY PRN PRN Reason: Constipation Stop: 12/14/19 20:43 Olanzapine (Zyprexa Zydis Od) 10 mg PO HS ADRIANE Stop: 05/03/20 21:59 Last Admin: 11/25/19 21:49 Dose: Not Given Documented by: Olanzapine (Zyprexa) 10 mg IM DAILY PRN PRN Reason: Refusal of PO Olanzapine Stop: 12/20/19 13:44 Sodium Chloride (Sierra Nasal) 1 - 2 sprays NA PRN PRN PRN Reason: Nasal Dryness/Congestion Stop: 12/14/19 20:43 Last Admin: 11/20/19 23:10 Dose: 2 sprays Documented by: Post Discharge Appointments Primary Care Physician Name Of Family Doctor: [facility] - Dr. Jeffrey Torres Primary Care Provider Appointment Comment: [address], [address], [place] [address] Other #1: Name of Aftercare Appointment: [facility] Skip Miner - Preeti Kelly Phone Number of Aftercare Appointment: [phone] Contact Information Discharge Discharge Address: [address] [place] [address], [address], [place] [address]
[2019-11-26] MEDS: OLANZAPINE ZYDIS 10 MG ORALLY DIS. TAB PO SCH (21:50)
[2019-11-26] MEDS: OLANZapine 10 MG/2.1 ML SDV IM PRN (21:50)
--- NOTE | 2019-11-27 18:26 | Psychiatric Progress Note ---
Date of Service November 27, 2019 Impression / Recommendations Impression Originally, I had thought (and, actually, hoped) that the best explanation for the patient's presentation was a somewhat atypical jorge, given the somewhat grandiose nature of his delusional belief system and the fact that he is loquacious. 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 Information provided today by his indicates that several years ago certain changes in his Department of [facility] triggered a certain amount of distrust by the patient, but his distrust gradually grew into the elaborate, highly systematized delusional belief system that is currently in place. I believe that this delusional system was essentially fed and amplified by the patient's pre-existing tendency to obsess, focus on patterns, and look for theoretical explanations. This is typical of delusional disorders where and the can begin with a fairly innocuous set of circumstances that, over time, blossom into full-blown, highly systematized delusional beliefs as the person who suffers from the delusional disorder focuses upon the referenced circumstances, obsesses about them, and, over time, expands the delusional belief system to include explanations for portions of the delusional system that have been challenged by other people. For example, when asked today why he does not simply publish and abstract of his "500 page" indictment of the [place] government, and the administration of [facility], so that he can go on record, he replied, "but that is the beauty of what they are doing to me! There is setting it up so that everyone can say "he is a psychiatric patient. Do not pay any attention to him." This, I believe this, quite typical of the way the patient's delusions have become so fixed and, apparently, immutable. Nevertheless, today, I could tell that he was not fully able to reconcile his awareness that his loves him very much and would be extremely unlikely to harm him, even if she was being threatened or compelled to do so. He does seem to be developing some trust with the staff, and is becoming more forthcoming. As noted, his behavior on the unit has been free of intermittent explosion, threats, violence, or any behavior other than pleasant stability. Of course, he is not cooperating with treatment,, but he is not resisting when given intramuscular injections of olanz apine, and is willing to tell us that he thinks that this may be helping him sleep better at night now that the dose has been changed to bedtime. He also says that he has not noticed any side effects. If he was more cooperative, I would try an anti-obsessional medication such as Prozac or sertraline, but the patient makes it clear that he will not voluntarily take any psychiatric medication orally. Accordingly, this is a difficult and complex situation. The patient's dyscontrol behavior does not seem to be specific to his , and even where he to leave the hospital without going home to his (for example, if she were to leave for [place] without him) the behaviors described by his give his reason to fear that he would quickly become danger to himself or other people in the community, given behaviors such as tearing apart mckeon looking for listening devices, and given his firm belief that he is on admission to protect and save innocent people. His behavior in the hospital is noted to be essentially exemplary, but this is within the context of his taking psychiatric medications here, and he has made it abundantly clear that he will not consider taking any psychiatric medication unless it is forced on him in the hospital. (1) Unspecified psychosis not due to a substance or known physiological condition: italics are reviewed from [facility] [place] providers: 11/14 Patient admitted on an involuntary status to the behavioral health unit for continued assessment and treatment as indicated He will be maintained on every 15 minute safety checks We will continue to expand database Consider neuroimaging for w/u of psychosis prn orders for Ativan and Haldol today. I suspect it is likely that he will require medications over objection before he permits any treatment due to what appears to be severely impaired insight. Patient will be reevaluated tomorrow for psychiatric second opinion regarding need for treatment over objection. -presently patient requires continued inpatient hospitalization for workup and treatment of psychosis which was been recently associated with some violent behavior at home. he is at risk of harm to self and others if discharged prematurely. 11/15 -File for 303 involuntary commitment. -Patient is refusing to consider medication, but has haloperidol and Ativan as needed ordered. Would recommend a trial of olanzapine, and agree with medications over objection as he has severe psychotic symptoms which are impairing his ability to function and placing both himself and others at risk of harm due to his violent behavior at home. -Patient is refused to answer questions about whether or not he has guns, so we will need to get this information from his . At this point he is refusing to sign a release for her or anyone else. -Excuse patient from groups due to the severity of his psychosis and violent behavior. Medically necessary private room room due to the same. 11/16 -303 involuntary commitment granted. -Patient continues to refuse to allow his to be involved in treatment. He is now not denying that he was aggressive at home, but is refusing to discuss it, and is focused only on the conspiracy which he says led to his behavior. -Continue to consider medications over objection. At this point, we are attempting to engage the patient in treatment volitionally, and the risk of forcing medications at this time is further alienating him. However, if he is unable to engage in any manner, we will need to reconsider medications over objection. -Patient may attend groups if able to maintain appropriate behavioral control. -Patient has still not been willing to complete admission assessments, and has not been willing to provide certain information. 11/17 -Recommend medications over objection, as the patient is unable to engage in treatment due to the severity of his psychosis and lack of insight, and remains at imminent risk of harm to others, specifically his , if his symptoms remain untreated. He is floridly delusional, now implicating hospital staff in his delusions. He is not able to work as a result of his psychosis, and his is not able to work due to having to supervise him, and is fearful of him given his escalating violence at home. He continues to refuse to allow her to be involved in treatment, is not attending groups, and is refusing to even discuss medication options. Dr. Duarte recommended medications over objection, and I agree, as the patient is unlikely to improve without antipsychotic medication. -Start olanzapine Zydis 5 mg daily, with a 5 mg IM backup for refusal. Order FLP and FG tomorrow for baseline on an atypical antipsychotic. He will also need a medical work-up of psychosis once he is more cooperative, including brain MRI. -Ongoing poor sleep, staff will limit bright lights near his room at night, and if he can be compliant with medication, can move olanzapine to bedtime to assist with sleep. Giving during the day initially to allow for adequate staff in case of need for physical hold or restraint to receive medication. 11/18 - Continue olanzapine 5mg daily (offering PO Zydis with IM for refusal) - medications over objection, though patient has been cooperative with his preference for IM administration - Pt offered again PO olanzapine, with the eventual option of converting the medication to HS dosing if he continues to be cooperative - as he reports sedation after receiving the medication - Pt remains delusional and paranoid, unable to discuss examples of how we can assist him during his stay - Maintain MNPR due to level of psychosis - Fasting glucose - wnl at 90; triglycerides elevated at 188, remainder of lipid panel wnl - Continue attempts to coordinate care with patient's 11/19 -Patient is continuing to say that he does not wish for us to speak with his , and he again tells us that he will not sign a consent that will allow us to contact her. As above, his assertion is that he does not want us talking to her because she may tell us things that we will include in the record and that will eventually be used against him, either by the government or by [facility]. As a compromise, the patient says that he will ask his to call us and tell us whether she continues to feel that he is a danger to her, himself, or to anyone else. It was explained that we would also need to be able to talk to her about our concerns and we would need to coordinate aftercare arrangements with her. The patient replied to that by saying simply that he would not allow us to say anything about his care or recommended treatment to her at this time. -There seem to be some early indications that the patient may be responding to olanzapine. Today, when I told him that our concerns about his safety had not to do with his behaviors here in the hospital but, instead, about his behaviors at home (in the community) he quickly responded, "yes, but I am getting medication here!" (He almost immediately realized the implication of what he had just said, and he immediately changed the subject and began talking about how various entities were deliberately provoking him into losing his temper and acting in anger. -The patient tells us that he is using the fact that he has been given intramuscular medications against his will as evidence of our being the "dupes" or agents of the entities behind the conspiracy to silence him. He also reiterates that he believes that taking medication voluntarily is tantamount to acknowledging his need for psychiatric treatment, and he tells us that he has absolutely no psychiatric problem at all and does not need any treatment. -Today, we are increasing his olanzapine's as follows. We will begin olanzapine ODT 10 mg at bedtime starting tonight. We have also changed his order for medications over objection to olanzapine 10 mg IM daily for refusal of p.o. olanzapine. -Although the patient's presentation has many of the symptoms of a delusional disorder, persecutory typegiven the elaborate nature of the delusional system, we continue to suspect that what we are seeing is a somewhat atypical jorge, or discrete manic episodes overlaying a underlying delusional disorder. If the explanation for the patient's presentation is symptoms of a manic episode, his prognosis is better. We discussed the possibility of adding an antiobsessional medication which sometimes helps with pure delusional disorders, but the patient says that, absolutely, he will not take any medication that we offer him voluntarily. 11/22--continue Zyprexa IM hs, continues to refuse family meeting with due to paranoia, refuses 2-3 trial of PO Invega to convert to injectable. 11/23--File for 304 hearing d/t ongoing psychosis, lack of insight, refusal for outpatient treatment or ongoing medication, refusal to involve , and high risk for return to violent behavior if home w/ , whom he believes is part of the conspiracy against him. 11/24 - Continue olanzapine IM, continuing to offer patient PO medication which he is consistently refusing - Pt continues to refuse to involve in conversations regarding discharge and safety planning - 304 hearing scheduled for 11/30; pt continues to be psychotic and remains unable to engage in productive safety and discharge planing, therefore remains at high risk of harm to sefl or others if he is discharged home in his current state 11/25 - Titrating olanzapine to 10mg daily; patient continues to refuse offer for P O and is therefore continuing to receive IM injections each evening - 304 hearing 11/30; pt continues to be unwilling to participate in safety and discharge planning efforts 11/26 -The patient tells me that he received olanzapine 10 mg last evening and says that he feels that it has helped him sleep better. However, he notes that his sleep difficulty is related to the fact that his sleep schedule in the hospital is substantially different from the one that he is used to at home, with bedtime here at the hospital being 3 or 4 hours earlier than he is used to. Nevertheless, he says that he believes that he is not having any side effects from olanzapine and that, in the sense that it does help him fall asleep, it helps. Nevertheless, he also repeats today that he will not continue to take any medication, including olanzapine, if he is discharged. -I spoke with the patient's today, without disclosing any protected clinical data regarding the patient. She acknowledges that he frightens her, and, particularly recently, has caused her to fear for her personal physical safety. At the same time, she says tells me that she thinks that if she gets some advice about how best to "handle somebody who is delusional" possibly by getting into individual therapy, herself, she may be able to take him home. She also reports that should he be released (she is aware of upcoming hearing) that she will agree to take him home, because she loves him and wants to protect him, but continues to fear that he may again lose control of his behavior as a function of his delusions. -Today, the patient tells me that he recognizes that in his upcoming hearing on 11/30 (304) the issue may boil down to whether he can assure that he will be safe in the community and will not represent a risk to anyone else, even if he does not take medication. He also says that he recognizes the "Catch-22" that he is in because he realizes that the hospital is likely to say that his behavior in the hospital has been positively influenced by his taking olanzapine, and that without the structure of the hospital and without the medications, he may revert to the dangerous behaviors that precipitated the adm ission. -Of concern is the fact that the patient's tells us today that, effective yesterday, he has told her that he will no longer speak to her telephonically, and if he is released from the hospital on Saturday he will simply walk home, and if she is not comfortable being home with him she should leave. However, by the end of today he is allowing that he truly believes that his loves him and would not try to harm him if she had any choice, so he is at least considering contacting her again by telephone. Risk Factors Assessment Male: Yes : Yes Do You Have Access To A Gun?: No ( denies that they have any guns at home) Health Problems: No Mental Health Diagnoses: Yes Substance Use Disorders: No Previous Attempt: No Previous Psychiatric Hospitalization: No Hopelessness: No Smoker: No Protective Factors Assessment : Yes Responsible for Young Children: No Employed: No Stable Relationships: No ( is supportive, but fearful of him due to his violence towards her.) Good Rapport with Provider: No (No outpatient providers.) Interval History Identifying Information SAL MAGANA is a 59-year-old M admitted on 11/14/19 19:58 on a 302 involuntary commitment for paranoia and violence at home, currently on a 303 extended involuntary commitment. Chief Complaint " I do not have a mental illness. You are all very nice people, but I do not need to be here." Review of Systems Sleep Information Total Hours of Sleep: 6 Sleep Comments: awake at 0500 Meal Information Percent Meal Consumed - Breakfast: 100 Percent Meal Consumed - Lunch: 100 Percent Meal Consumed - Dinner: 100 Nutrition Comment: per meal record Subjective Subjective Patient was seen & assessed and interval progress reviewed with treatment team. I met individually with the patient in order to assess his current mental status, evaluate his response to treatment, coordinate or at least explain any change in his treatment plan with the patient, and address issues, questions and concerns that may arise. Prior to meeting with the patient, I took an opportunity to speak with the patient's , Chio. The patient has not signed a release of information and so I began by clarifying with his that, without the patient's permission, I could not provide any specific information regarding her , his condition, and his treatment. However, I am able to receive information that she cares to provide, with the understanding that I am unable to comment in any way that is specific to her and his protected clinical information. The indicated understanding. She is clearly very distressed about her 's illness. She reports that they have been nearly 30 years, have no children, and have always been dependent upon each other as friends and confidants. She describes the relationship as being loving and supportive. 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 Nevertheless, she notes that he has always been heavily focused on numbers, patterns, and, more recently, on words, language, and sequ ences. For example, she told me that certain words, if used in a certain order, mean something to him and signal apparent hidden meanings. Also, certain colors cause him to have certain associations. For example, she tells me that he once gave a friend an object that was made of turquoise or was turquoise in its color, and that that person was associated with an unpleasant part of his past, and so he becomes distressed if he sees someone wearing turquoise or sporting turquoise jewelry. Further, she notes that, in the past 2 years she has noticed that he easily incorporates the themes of certain dramas that they together on television, and that she has learned that she has no way of predicting which particular dramas or ministries may resonate with him, but that he can quickly incorporate what ever he has been watching on television into his very "elaborate delusional system" (her words). The patient also notes that she feels that she had been able to cope with his loss of touch with reality during the past several years, although, of course, it has greatly distressed her. However, recently she acknowledges that she has become frightened by some of his behaviors. In one recent incident she says that they were seated on a love seat having coffee together, as they often do, when the patient began to focus on his paranoid delusional believes, escalated rapidly, began shouting, jumped to his seat, picked up the coffee table, and threw to the ground breaking it. She tells me that he has regularly been breaking through the [place] of their rented home because he is looking for listening devices or other pieces of evidence that he thinks will support his delusional beliefs, and that he spends much of his time if doing research and writing in a home office, that is if she doesn't succeeded in distracting him. She notes that, usually, she can de-escalate him or, if she cannot, she knows to leave and go to a friend's house, or otherwise remove herself from the situation. However, she notes that recently she has not been able to avoid his flying into rages, and, she has previously, she described him tearing apart a door frame,'s and then coming towards her with a broken piece of wood that she said resembled a spear. While he did not attempt to strike her with it, she said that she was genuinely very frightened and not sure what was about to happen. The patient's adds that she deeply loves her , has no thoughts of leaving him, and would be willing to take him home he be released from the hospital without improvement, at least as a trial. She is aware that he is refusing to take medications, and she mentioned that, as of yesterday, he announced to her that he would no longer be speaking to her because he believes that she is somehow involved in the conspiracy against him. Finally, the patient's mentioned that she has a home in [place], and the patient's brother lives in [place] and shares her concern and willingness to be supportive. 1 of her thoughts is to take her to [place] where he could be closer to his brother, and she would be more likely to have more help and support. I then met with the patient, and he was more forthcoming today than he had been the last time I saw him, a week ago today. However, he remains steadfast in his belief that he has uncovered a vast conspiracy (the [place] and the [place] government plus [facility]) to "neutralize" him so that he cannot successfully "tell the world" what he knows about unspecified human rights atrocities that have been committed, primarily against [place]. I sought clarification regarding his thoughts about his 's role in the conspiracy, given the fact that last week he had hinted that she was somehow involved, but had declined to "confirm or deny" that that is what he believes. Today, he tells me that he does believe that she is part of the conspiracy against him, but that she is not a willing conspirator. Instead, he feels that she is being compelled by those who are plotting against him to assert that he is dangerous and that she does not feel safe. I asked the patient if he believed that his loves him, and he answered in the affirmative. I asked him if he believes that his loves him very much, and he said that he does. I then asked him if he loves his very much, and he confirmed that he does love his very much. While debating delusional beliefs with an individual who is suffering from delusions is rarely beneficial, I did ask the patient to consider a scenario in which some evil entity was conspiring to "neutralize" his , a woman that he loves, and that part of this conspiracy involved compelling him, through threats, to give false testimony so that she will be found to be insane and dangerous and confined indefinitely to a psychiatric hospital. I asked the patient to repeat the scenario, and he did correctly. I then asked him if he would do as he was ordered to do by the conspirators, or if he would refuse meant that they would kill or torture him. The patient clearly recognized the hypothetical scenario with his own believes, and seemed to genuinely think about it quite a bit. Finally, he asked me what I would do under the same situation, and I told him that I would treat rather than to do that to my spouse, a person that I he deeply love. The patient had tears in his eyes, and I then asked him if he had any reason to truly believe that his would agree to hurt him the way that he is supposing that she is, and he agreed that she would not. Several times through the balance of the day the patient approached me and offered possible alternatives, such as "may be I would testify against her if I knew that it will only mean a brief stay in the hospital." I reminded him that the would be confined and dangerous as long as he continues to testify that he is unsafe if she is released. Really, the patient approached me and said, "maybe I would decide to testify against her, so that I could stay alive and work to from the hospital, down the road, or maybe I would offer to picker tender her research and publish it myself so that she could be saved. I could not save her if I let them kill me." Later still, he said "they would not want to kill me because they need me to testify that she is dangerous." I then said, "Well, if they are willing to kill someone over what they know, why would not they just kill your and make it look like an accident?" The patient tried to change the subject by saying ""that is silly," and when I said "you know it is not," he looks at the floor and nodded his head in the affirmative. Physical Exam Psychiatric Orientation: alert, oriented x 3 and cooperative Apperance: appropriately dressed and appropriately groomed Patient appears somewhat younger than his stated age. For reasons that are not clear, he seems to have incorporated tonsorial services into his delusional system and has not agreed to have his haircut for some time now. However, he attempts to keep it clean and combed. Eye Contact: + fair eye contact Motor Behavior: steady gait and station The patient is loquacious, but his speech is not pressured. Affect: euthymic affect "Frustrated, but okay." Patient tends to be circumferential and obsesses about fairly minor details, but I believe that this is more consistent with a personality style and what is described by his as possible symptoms of obsessive-compulsive disorder. Thought Content: + delusions See above. The patient has a extremely elaborate, well systematized delusional system. He tends to expand the delusional system in order to explain any challenge to it. Suicidal Thoughts: denies suicidal thoughts Homicidal Thoughts: denies homicidal thoughts Hallucinations: no auditory hallucinations Cognition: recent memory grossly intact and remote memory grossly intact Estimated Intelligence: + above average estimated intelligence Insight: + severely impaired insight Judgement: + limited judgement The patient's judgment is consistent with his delusional beliefs. There is an internal logic to much of what the patient says, and, for example, he says that he believes that his best hope of being released from the hospital is to be able to demonstrate that his behavior is under control and that he does not lack self possession when it comes to controlling his anger and frustration. Vital Signs (Past 24 Hours) Last Vital Signs Temp 36.6 C 11/27/19 06:00 Pulse 81 11/27/19 06:36 Resp 18 11/27/19 06:00 BP 125/73 11/27/19 06:36 Pulse Ox 98 11/14/19 20:15 Results & Data ([facility]) Current Inpatient Medications Current Inpatient Medications: Current Inpatient Medications Acetaminophen (Tylenol) 650 mg PO Q4H PRN PRN Reason: Headache or Minor Fever Stop: 12/14/19 20:43 Al Hydrox/Mg Hydrox/Simethicone (Maalox) 30 ml PO Q4H PRN PRN Reason: GI Upset Stop: 12/14/19 20:43 Bismuth Subsalicylate (Kaopectate) 15 ml PO PRN PRN PRN Reason: Loose Stool Stop: 12/14/19 20:43 Haloperidol (Haldol) 5 mg PO Q8H PRN PRN Reason: agitation/psychosis Stop: 12/15/19 09:59 Haloperidol Lactate (Haldol) 5 mg IM Q8H PRN PRN Reason: for behavioral emergency Stop: 12/15/19 09:50 Hydroxyzine HCl (Vistaril) 50 mg PO HSZ PRN PRN Reason: Insomnia Stop: 12/14/19 20:43 Hydroxyzine HCl (Vistaril) 25 mg PO Q4H PRN PRN Reason: Anxiety Stop: 12/14/19 20:43 Lorazepam (Ativan) 1 mg PO Q8H PRN PRN Reason: Anxiety/irritability Stop: 12/15/19 09:52 Magnesium Hydroxide (Milk Of Magnesia) 30 ml PO DAILY PRN PRN Reason: Constipation Stop: 12/14/19 20:43 Olanzapine (Zyprexa Zydis Od) 10 mg PO HS ADRIANE Stop: 12/20/19 21:59 Last Admin: 11/26/19 21:50 Dose: Not Given Documented by: Olanzapine (Zyprexa) 10 mg IM DAILY PRN PRN Reason: Refusal of PO Olanzapine Stop: 12/20/19 13:44 Last Admin: 11/26/19 21:50 Dose: 10 mg Documented by: Sodium Chloride ([place] Nasal) 1 - 2 sprays NA PRN PRN PRN Reason: Nasal Dryness/Congestion Stop: 12/14/19 20:43 Last Admin: 11/20/19 23:10 Dose: 2 sprays Documented by: Post Discharge Appointments Primary Care Physician Name Of Family Doctor: [facility] [place] [facility] - Dr. Jeffrey Torres Primary Care Provider Appointment Comment: [id number], [address], [place] [address] Contact Information Discharge Discharge Address: [address], [address], [place] [address]
[2019-11-27] MEDS: OLANZapine 10 MG/2.1 ML SDV IM PRN (21:56)
[2019-11-27] MEDS: OLANZAPINE ZYDIS 10 MG ORALLY DIS. TAB PO SCH (22:05)
--- NOTE | 2019-11-28 07:05 | Psychiatric Progress Note ---
Date of Service November 28, 2019 Impression / Recommendations Impression Originally, I had thought (and, actually, hoped) that the best explanation for the patient's presentation was a somewhat atypical jorge, given the somewhat grandiose nature of his delusional belief system and the fact that he is loquacious. 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 Information provided today by his indicates that several years ago certain changes in his Department of [facility] triggered a certain amount of distrust by the patient, but his distrust gradually grew into the elaborate, highly systematized delusional belief system that is currently in place. I believe that this delusional system was essentially fed and amplified by the patient's pre-existing tendency to obsess, focus on patterns, and look for theoretical explanations. This is typical of delusional disorders where and the can begin with a fairly innocuous set of circumstances that, over time, blossom into full-blown, highly systematized delusional beliefs as the person who suffers from the delusional disorder focuses upon the referenced circumstances, obsesses about them, and, over time, expands the delusional belief system to include explanations for portions of the delusional system that have been challenged by other people. For example, when asked today why he does not simply publish and abstract of his "500 page" indictment of the [place] government, and the administration of [facility], so that he can go on record, he replied, "but that is the beauty of what they are doing to me! There is setting it up so that everyone can say "he is a psychiatric patient. Do not pay any attention to him." This, I believe this, quite typical of the way the patient's delusions have become so fixed and, apparently, immutable. Nevertheless, today, I could tell that he was not fully able to reconcile his awareness that his loves him very much and would be extremely unlikely to harm him, even if she was being threatened or compelled to do so. He does seem to be developing some trust with the staff, and is becoming more forthcoming. As noted, his behavior on the unit has been free of intermittent explosion, threats, violence, or any behavior other than pleasant stability. Of course, he is not cooperating with treatment,, but he is not resisting when given intramuscular injections of olanz apine, and is willing to tell us that he thinks that this may be helping him sleep better at night now that the dose has been changed to bedtime. He also says that he has not noticed any side effects. If he was more cooperative, I would try an anti-obsessional medication such as Prozac or sertraline, but the patient makes it clear that he will not voluntarily take any psychiatric medication orally. Accordingly, this is a difficult and complex situation. The patient's dyscontrol behavior does not seem to be specific to his , and even where he to leave the hospital without going home to his (for example, if she were to leave for [place] without him) the behaviors described by his give his reason to fear that he would quickly become danger to himself or other people in the community, given behaviors such as tearing apart mckeon looking for listening devices, and given his firm belief that he is on admission to protect and save innocent people. His behavior in the hospital is noted to be essentially exemplary, but this is within the context of his taking psychiatric medications here, and he has made it abundantly clear that he will not consider taking any psychiatric medication unless it is forced on him in the hospital. (1) Unspecified psychosis not due to a substance or known physiological condition: italics are reviewed from [facility] providers: 11/14 Patient admitted on an involuntary status to the behavioral health unit for continued assessment and treatment as indicated He will be maintained on every 15 minute safety checks We will continue to expand database Consider neuroimaging for w/u of psychosis prn orders for Ativan and Haldol today. I suspect it is likely that he will require medications over objection before he permits any treatment due to what appears to be severely impaired insight. Patient will be reevaluated tomorrow for psychiatric second opinion regarding need for treatment over objection. -presently patient requires continued inpatient hospitalization for workup and treatment of psychosis which was been recently associated with some violent behavior at home. he is at risk of harm to self and others if discharged prematurely. 11/15 -File for 303 involuntary commitment. -Patient is refusing to consider medication, but has haloperidol and Ativan as needed ordered. Would recommend a trial of olanzapine, and agree with medications over objection as he has severe psychotic symptoms which are impairing his ability to function and placing both himself and others at risk of harm due to his violent behavior at home. -Patient is refused to answer questions about whether or not he has guns, so we will need to get this information from his . At this point he is refusing to sign a release for her or anyone else. -Excuse patient from groups due to the severity of his psychosis and violent behavior. Medically necessary private room room due to the same. 11/16 -303 involuntary commitment granted. -Patient continues to refuse to allow his to be involved in treatment. He is now not denying that he was aggressive at home, but is refusing to discuss it, and is focused only on the conspiracy which he says led to his behavior. -Continue to consider medications over objection. At this point, we are attempting to engage the patient in treatment volitionally, and the risk of forcing medications at this time is further alienating him. However, if he is unable to engage in any manner, we will need to reconsider medications over objection. -Patient may attend groups if able to maintain appropriate behavioral control. -Patient has still not been willing to complete admission assessments, and has not been willing to provide certain information. 11/17 -Recommend medications over objection, as the patient is unable to engage in treatment due to the severity of his psychosis and lack of insight, and remains at imminent risk of harm to others, specifically his , if his symptoms remain untreated. He is floridly delusional, now implicating hospital staff in his delusions. He is not able to work as a result of his psychosis, and his is not able to work due to having to supervise him, and is fearful of him given his escalating violence at home. He continues to refuse to allow her to be involved in treatment, is not attending groups, and is refusing to even discuss medication options. Dr. Duarte recommended medications over objection, and I agree, as the patient is unlikely to improve without antipsychotic medication. -Start olanzapine Zydis 5 mg daily, with a 5 mg IM backup for refusal. Order FLP and FG tomorrow for baseline on an atypical antipsychotic. He will also need a medical work-up of psychosis once he is more cooperative, including brain MRI. -Ongoing poor sleep, staff will limit bright lights near his room at night, and if he can be compliant with medication, can move olanzapine to bedtime to assist with sleep. Giving during the day initially to allow for adequate staff in case of need for physical hold or restraint to receive medication. 11/18 - Continue olanzapine 5mg daily (offering PO Zydis with IM for refusal) - medications over objection, though patient has been cooperative with his preference for IM administration - Pt offered again PO olanzapine, with the eventual option of converting the medication to HS dosing if he continues to be cooperative - as he reports sedation after receiving the medication - Pt remains delusional and paranoid, unable to discuss examples of how we can assist him during his stay - Maintain MNPR due to level of psychosis - Fasting glucose - wnl at 90; triglycerides elevated at 188, remainder of lipid panel wnl - Continue attempts to coordinate care with patient's 11/19 -Patient is continuing to say that he does not wish for us to speak with his , and he again tells us that he will not sign a consent that will allow us to contact her. As above, his assertion is that he does not want us talking to her because she may tell us things that we will include in the record and that will eventually be used against him, either by the government or by [facility]. As a compromise, the patient says that he will ask his to call us and tell us whether she continues to feel that he is a danger to her, himself, or to anyone else. It was explained that we would also need to be able to talk to her about our concerns and we would need to coordinate aftercare arrangements with her. The patient replied to that by saying simply that he would not allow us to say anything about his care or recommended treatment to her at this time. -There seem to be some early indications that the patient may be responding to olanzapine. Today, when I told him that our concerns about his safety had not to do with his behaviors here in the hospital but, instead, about his behaviors at home (in the community) he quickly responded, "yes, but I am getting medication here!" (He almost immediately realized the implication of what he had just said, and he immediately changed the subject and began talking about how various entities were deliberately provoking him into losing his temper and acting in anger. -The patient tells us that he is using the fact that he has been given intramuscular medications against his will as evidence of our being the "dupes" or agents of the entities behind the conspiracy to silence him. He also reiterates that he believes that taking medication voluntarily is tantamount to acknowledging his need for psychiatric treatment, and he tells us that he has absolutely no psychiatric problem at all and does not need any treatment. -Today, we are increasing his olanzapine's as follows. We will begin olanzapine ODT 10 mg at bedtime starting tonight. We have also changed his order for medications over objection to olanzapine 10 mg IM daily for refusal of p.o. olanzapine. -Although the patient's presentation has many of the symptoms of a delusional disorder, persecutory typegiven the elaborate nature of the delusional system, we continue to suspect that what we are seeing is a somewhat atypical jorge, or discrete manic episodes overlaying a underlying delusional disorder. If the explanation for the patient's presentation is symptoms of a manic episode, his prognosis is better. We discussed the possibility of adding an antiobsessional medication which sometimes helps with pure delusional disorders, but the patient says that, absolutely, he will not take any medication that we offer him voluntarily. 11/22--continue Zyprexa IM hs, continues to refuse family meeting with due to paranoia, refuses 2-3 trial of PO Invega to convert to injectable. 11/23--File for 304 hearing d/t ongoing psychosis, lack of insight, refusal for outpatient treatment or ongoing medication, refusal to involve , and high risk for return to violent behavior if home w/ , whom he believes is part of the conspiracy against him. 11/24 - Continue olanzapine IM, continuing to offer patient PO medication which he is consistently refusing - Pt continues to refuse to involve in conversations regarding discharge and safety planning - 304 hearing scheduled for 11/30; pt continues to be psychotic and remains unable to engage in productive safety and discharge planing, therefore remains at high risk of harm to sefl or others if he is discharged home in his current state 11/25 - Titrating olanzapine to 10mg daily; patient continues to refuse offer for P O and is therefore continuing to receive IM injections each evening - 304 hearing 11/30; pt continues to be unwilling to participate in safety and discharge planning efforts 11/26 -The patient tells me that he received olanzapine 10 mg last evening and says that he feels that it has helped him sleep better. However, he notes that his sleep difficulty is related to the fact that his sleep schedule in the hospital is substantially different from the one that he is used to at home, with bedtime here at the hospital being 3 or 4 hours earlier than he is used to. Nevertheless, he says that he believes that he is not having any side effects from olanzapine and that, in the sense that it does help him fall asleep, it helps. Nevertheless, he also repeats today that he will not continue to take any medication, including olanzapine, if he is discharged. -I spoke with the patient's today, without disclosing any protected clinical data regarding the patient. She acknowledges that he frightens her, and, particularly recently, has caused her to fear for her personal physical safety. At the same time, she says tells me that she thinks that if she gets some advice about how best to "handle somebody who is delusional" possibly by getting into individual therapy, herself, she may be able to take him home. She also reports that should he be released (she is aware of upcoming hearing) that she will agree to take him home, because she loves him and wants to protect him, but continues to fear that he may again lose control of his behavior as a function of his delusions. -Today, the patient tells me that he recognizes that in his upcoming hearing on 11/30 (304) the issue may boil down to whether he can assure that he will be safe in the community and will not represent a risk to anyone else, even if he does not take medication. He also says that he recognizes the "Catch-22" that he is in because he realizes that the hospital is likely to say that his behavior in the hospital has been positively influenced by his taking olanzapine, and that without the structure of the hospital and without the medications, he may revert to the dangerous behaviors that precipitated the adm ission. -Of concern is the fact that the patient's tells us today that, effective yesterday, he has told her that he will no longer speak to her telephonically, and if he is released from the hospital on Saturday he will simply walk home, and if she is not comfortable being home with him she should leave. However, by the end of today he is allowing that he truly believes that his loves him and would not try to harm him if she had any choice, so he is at least considering contacting her again by telephone. 11/27 -Patient informed of 304 hearing and plan to refer to the [facility], as well as additional labs needed for that referral. -He continues to refuse a family meeting with his , who has expressed ongoing concern for her safety. He continues to refuse p.o. medication, outpatient treatment, and discussion of his aggression at home or plans to mitigate it. He remains at risk of harm to others, particularly his , and if discharged prematurely, as she is implicated in his delusion and he believes she has part of the conspiracy against him. -Encourage the patient to attend groups and focus on his own emotional reaction to his perception of events, healthy coping skills, and a discharge safety plan; all of which thus far he has been unwilling to do. Risk Factors Assessment Male: Yes : Yes Do You Have Access To A Gun?: No ( denies that they have any guns at home) Health Problems: No Mental Health Diagnoses: Yes Substance Use Disorders: No Previous Attempt: No Previous Psychiatric Hospitalization: No Hopelessness: No Smoker: No Protective Factors Assessment : Yes Responsible for Young Children: No Employed: No Stable Relationships: No ( is supportive, but fearful of him due to his violence towards her.) Good Rapport with Provider: No (No outpatient providers.) Interval History Identifying Information SAL MAGANA is a 59-year-old M admitted on 11/14/19 19:58 on a 302 involuntary commitment for paranoia and violence at home, currently on a 303 extended involuntary commitment. Chief Complaint " Not much different". Review of Systems Notes 10 systems reviewed; no muscle stiffness or tightening, pain, nausea, vomiting, diarrhea, or constipation. + Dry skin Sleep Information Total Hours of Sleep: 4 Sleep Comments: awake at 0400 for the day. out to the kitchen area and asked staff for hot tea. Pleasant mood. Meal Information Percent Meal Consumed - Breakfast: 100 Percent Meal Consumed - Lunch: 100 Percent Meal Consumed - Dinner: 100 Nutrition Comment: per meal record Subjective Subjective Patient was seen & assessed and interval progress reviewed with nursing and social work. 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 He continues to refuse a family meeting or to sign an EB to involve his in treatment, and refuses to take oral medications, although he has been accepting the olanzapine IM nightly. He became upset when staff reviewed his treatment plan with him, left and went to his room, and refused to review it. Dr. Christopher spoke with the patient's yesterday, see details in his note; in short, she reports longstanding obsessive tendencies, which have amplified his delusions. She described delusions of reference, for example, certain words in a certain order signal hidden meanings to the patient. She reported being extremely distressed by his progressive loss of touch with kalyan y over the past couple of years, and that recently his behavior has been frightening. She described the incident where they were seated on the love seat having coffee together, and he became focused on his paranoid delusions, escalated rapidly, began shouting, jumped to his seat, picked up the coffee table, and threw it to the ground, breaking it. He has regularly been breaking through the mckeon of the rented home because he is looking for listening devices or other pieces of evidence he think will support his delusional beliefs. She also described him breaking wood off the door frame, and coming at her with a piece of it that was shaped like a spear, stating she was genuinely frightened he would harm her. The day prior, he told her he would no longer be speaking to her because he believes that she is involved in the conspiracy against him. Today I met with the patient for over 1 hour. He states the olanzapine causes him to feel tired and "I am sleeping quite well." He has noted a morning headache that resolved within 30 minutes which she attributes to the medication, but denies any other side effects. He maintains that we cannot discuss his aggressive behavior at home without first discussing all of the events that led up to it, repeatedly returns to the topic of the systematic persecution against him in order to prevent him from sharing what he knows about a vast conspiracy. He refers to "the patel I am fighting," and says the book that he is writing this about the conspiracy, and "people are trying to suppress what I'm saying, and pit groups against me." He says he spoke to his on the phone last night, and continues to believe that she is part of the conspiracy against him, stating "sometimes people do what they have to do, not what they want to do." He states that "they" are "pitting people against me" because "I'm trying to make that information known and it's being suppressed." He references Dr. Christopher's discussion with his yesterday, asking why we cannot let him go, now that we have spoken with her. Reviewed again that there has been no discussion of the events leading up to his admission (aggressive behavior toward her at home and the obvious concerns about this), no safety plan, no discussion of ways he can deal with his anger in a healthier way, no plan for continued outpatient treatment, still refusing oral medication, and lack of ability to have an open discussion with his about his symptoms as she has observed them. 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 They tried to tear my program down, that should cause a lot of anger, and you should want to stick a chair in the wall." When asked what he would have to lose by involving his in a meeting, he states "I can't really say anything more, but I want to protect her." He says he "has a sense that they'd get more information, that would have bad outcomes for me" if he had the meeting with his . He is able to allow that it is possible his is not conspiring against him, but feels stuck and unable to figure out how to determine this. He states "her role in this whole situation is a mystery, I think I've pretty much figured it out, but don't want to say anymore." He does not even trust his own impulses, stating that for a couple of years he had been having an impulse that he could move somewhere else in the world and live a nice life, like [place], but now suspects that these impulses were being externally caused in order to get him to leave the area and go somewhere where he could be killed without suspicion. To illustrate this, he tells a story of the [place] center administrator who discovered irrational numbers, and how the others in his society could not accept this as it and validated all that they knew and believed, so instead they killed him. He references a line from a TV show that people can only handle so much truth, and feels that this applies to his situation and that is why is he is being silenced. Physical Exam Psychiatric Orientation: alert and cooperative Apperance: appropriately dressed, appropriately groomed and appeared stated age Wearing the same button-down shirt, chin length graying hair. Eye Contact: good eye contact Motor Behavior: steady gait and station and no abnormal motor movements Repeatedly pushes his hair out of his face with his hands and runs his hands through his hair. Speech: normal rate/rhythm/volume of speech Loquacious, not pressured Full affect "Not much different." Thought Process: + circumstantial thought process Thought Content: + paranoid, + delusions and + persecution Delusions of reference Suicidal Thoughts: denies suicidal thoughts Homicidal Thoughts: denies homicidal thoughts Hallucinations: no auditory hallucinations Cognition: recent memory grossly intact and attention grossly intact Estimated Intelligence: + above average estimated intelligence Insight: + impaired insight Judgement: + impaired judgement Vital Signs (Past 24 Hours) Last Vital Signs Temp 36.5 C 11/28/19 06:28 Pulse 73 11/28/19 06:28 Resp 18 11/28/19 06:28 BP 123/83 11/28/19 06:28 Pulse Ox 98 11/14/19 20:15 Results & Data ([facility]) Current Inpatient Medications Current Inpatient Medications: Current Inpatient Medications Acetaminophen (Tylenol) 650 mg PO Q4H PRN PRN Reason: Headache or Minor Fever Stop: 12/14/19 20:43 Al Hydrox/Mg Hydrox/Simethicone (Maalox) 30 ml PO Q4H PRN PRN Reason: GI Upset Stop: 12/14/19 20:43 Bismuth Subsalicylate (Kaopectate) 15 ml PO PRN PRN PRN Reason: Loose Stool Stop: 12/14/19 20:43 Haloperidol (Haldol) 5 mg PO Q8H PRN PRN Reason: agitation/psychosis Stop: 12/15/19 09:59 Haloperidol Lactate (Haldol) 5 mg IM Q8H PRN PRN Reason: for behavioral emergency Stop: 12/15/19 09:50 Hydroxyzine HCl (Vistaril) 50 mg PO HSZ PRN PRN Reason: Insomnia Stop: 12/14/19 20:43 Hydroxyzine HCl (Vistaril) 25 mg PO Q4H PRN PRN Reason: Anxiety Stop: 12/14/19 20:43 Lorazepam (Ativan) 1 mg PO Q8H PRN PRN Reason: Anxiety/irritability Stop: 12/15/19 09:52 Magnesium Hydroxide (Milk Of Magnesia) 30 ml PO DAILY PRN PRN Reason: Constipation Stop: 12/14/19 20:43 Olanzapine (Zyprexa Zydis Od) 10 mg PO HS ADRIANE Stop: 12/20/19 21:59 Last Admin: 11/27/19 22:05 Dose: Not Given Documented by: Olanzapine (Zyprexa) 10 mg IM DAILY PRN PRN Reason: Refusal of PO Olanzapine Stop: 12/20/19 13:44 Last Admin: 11/27/19 21:56 Dose: 10 mg Documented by: Sodium Chloride (Rosebud Nasal) 1 - 2 sprays NA PRN PRN PRN Reason: Nasal Dryness/Congestion Stop: 12/14/19 20:43 Last Admin: 11/20/19 23:10 Dose: 2 sprays Documented by: Post Discharge Appointments Primary Care Physician Name Of Family Doctor: [facility] Dr. Jeffrey Torres Primary Care Provider Appointment Comment: [address], [address], [place] [address] Contact Information Discharge Discharge Address: [address] [place] [address], [address], [place] [address]
[2019-11-28] MEDS ORDERED: TUBERCULIN SKIN TEST 5 TU in SYRINGE 0 ML ID ONE (11:45)
[2019-11-28] MEDS: OLANZAPINE ZYDIS 10 MG ORALLY DIS. TAB PO SCH (21:44)
[2019-11-28] MEDS: OLANZapine 10 MG/2.1 ML SDV IM PRN (21:44)
--- NOTE | 2019-11-29 06:39 | Psychiatric Progress Note ---
Date of Service November 29, 2019 Impression / Recommendations Impression Primary diagnosis appears to be delusional disorder, persecutory type. Information provided by his indicates that several years ago certain changes in his department at the [facility] triggered a certain amount of distrust by the patient, which gradually grew into the elaborate, highly systematized delusional belief system that is currently in place. His delusional system was likely amplified by his tendency to obsess, focus on patterns, and look for theoretical explanations. This is typical of delusional disorders, as they often begin with a fairly innocuous set of circumstances that, over time, blossom into full-blown, highly systematized delusional beliefs, and the person who suffers from the delusional disorder focuses upon the referenced circumstances, obsesses about them, and, over time, expands the delusional belief system to include explanations for portions of the delusional system that have been challenged by other people, which has been very evident here. Although his behavior on the unit has been free of threats and violence, he is refusing to involve his , who reports fear for her safety given his behavior (violence directed at her prior to admission) and the fact that he has implicated her in his delusional system and believes she is conspiring within [place] government against him. Further, he is uncooperative with treatment, is refusing medication (although not resisting when given intramuscular injections of olanzapine), and declining outpatient treatment. This is a difficult and complex situation. The patient's dyscontrol behavior does not seem to be specific to his , and even were he to leave the hospital without going home to his , the behaviors described by his give reason to predict that he would quickly become a danger to himself or other people in the community. He lacks insight, and expresses a firm belief that he is on a mission to protect and save innocent people. His calm her behavior here is also within the context of his taking psychiatric medications, and he has made it abundantly clear that he will not consider taking any psychiatric medication unless it is forced on him in the hospital. (1) Unspecified psychosis not due to a substance or known physiological condition: italics are reviewed from [facility] providers: 11/14 Patient admitted on an involuntary status to the behavioral health unit for continued assessment and treatment as indicated He will be maintained on every 15 minute safety checks We will continue to expand database Consider neuroimaging for w/u of psychosis prn orders for Ativan and Haldol today. I suspect it is likely that he will require medications over objection before he permits any treatment due to what appears to be severely impaired insight. Patient will be reevaluated tomorrow for psychiatric second opinion regarding need for treatment over objection. -presently patient requires continued inpatient hospitalization for workup and treatment of psychosis which was been recently associated with some violent behavior at home. he is at risk of harm to self and others if discharged prematurely. 11/15 -File for 303 involuntary commitment. -Patient is refusing to consider medication, but has haloperidol and Ativan as needed ordered. Would recommend a trial of olanzapine, and agree with medications over objection as he has severe psychotic symptoms which are impairing his ability to function and placing both himself and others at risk of harm due to his violent behavior at home. -Patient is refused to answer questions about whether or not he has guns, so we will need to get this information from his . At this point he is refusing to sign a release for her or anyone else. -Excuse patient from groups due to the severity of his psychosis and violent behavior. Medically necessary private room room due to the same. 11/16 -303 involuntary commitment granted. -Patient continues to refuse to allow his to be involved in treatment. He is now not denying that he was aggressive at home, but is refusing to discuss it, and is focused only on the conspiracy which he says led to his behavior. -Continue to consider medications over objection. At this point, we are attempting to engage the patient in treatment volitionally, and the risk of forcing medications at this time is further alienating him. However, if he is unable to engage in any manner, we will need to reconsider medications over objection. -Patient may attend groups if able to maintain appropriate behavioral control. -Patient has still not been willing to complete admission assessments, and has not been willing to provide certain information. 11/17 -Recommend medications over objection, as the patient is unable to engage in treatment due to the severity of his psychosis and lack of insight, and remains at imminent risk of harm to others, specifically his , if his symptoms remain untreated. He is floridly delusional, now implicating hospital staff in his delusions. He is not able to work as a result of his psychosis, and his is not able to work due to having to supervise him, and is fearful of him given his escalating violence at home. He continues to refuse to allow her to be involved in treatment, is not attending groups, and is refusing to even discuss medication options. Dr. Duarte recommended medications over objection, and I agree, as the patient is unlikely to improve without antipsychotic medication. -Start olanzapine Zydis 5 mg daily, with a 5 mg IM backup for refusal. Order FLP and FG tomorrow for baseline on an atypical antipsychotic. He will also need a medical work-up of psychosis once he is more cooperative, including brain MRI. -Ongoing poor sleep, staff will limit bright lights near his room at night, and if he can be compliant with medication, can move olanzapine to bedtime to assist with sleep. Giving during the day initially to allow for adequate staff in case of need for physical hold or restraint to receive medication. / - Continue olanzapine 5mg daily (offering PO Zydis with IM for refusal) - medications over objection, though patient has been cooperative with his preference for IM administration - Pt offered again PO olanzapine, with the eventual option of converting the medication to HS dosing if he continues to be cooperative - as he reports sedation after receiving the medication - Pt remains delusional and paranoid, unable to discuss examples of how we can assist him during his stay - Maintain MNPR due to level of psychosis - Fasting glucose - wnl at 90; triglycerides elevated at 188, remainder of lipid panel wnl - Continue attempts to coordinate care with patient's 11/19 -Patient is continuing to say that he does not wish for us to speak with his , and he again tells us that he will not sign a consent that will allow us to contact her. As above, his assertion is that he does not want us talking to her because she may tell us things that we will include in the record and that will eventually be used against him, either by the government or by [facility]. As a compromise, the patient says that he will ask his to call us and tell us whether she continues to feel that he is a danger to her, himself, or to anyone else. It was explained that we would also need to be able to talk to her about our concerns and we would need to coordinate aftercare arrangements with her. The patient replied to that by saying simply that he would not allow us to say anything about his care or recommended treatment to her at this time. -There seem to be some early indications that the patient may be responding to olanzapine. Today, when I told him that our concerns about his safety had not to do with his behaviors here in the hospital but, instead, about his behaviors at home (in the community) he quickly responded, "yes, but I am getting medication here!" (He almost immediately realized the implication of what he had just said, and he immediately changed the subject and began talking about how various entities were deliberately provoking him into losing his temper and acting in anger. -The patient tells us that he is using the fact that he has been given intramuscular medications against his will as evidence of our being the "dupes" or agents of the entities behind the conspiracy to silence him. He also reiterates that he believes that taking medication voluntarily is tantamount to acknowledging his need for psychiatric treatment, and he tells us that he has absolutely no psychiatric problem at all and does not need any treatment. -Today, we are increasing his olanzapine's as follows. We will begin olanzapine ODT 10 mg at bedtime starting tonight. We have also changed his order for medications over objection to olanzapine 10 mg IM daily for refusal of p.o. olanzapine. -Although the patient's presentation has many of the symptoms of a delusional disorder, persecutory typegiven the elaborate nature of the delusional system, we continue to suspect that what we are seeing is a somewhat atypical jorge, or discrete manic episodes overlaying a underlying delusional disorder. If the explanation for the patient's presentation is symptoms of a manic episode, his prognosis is better. We discussed the possibility of adding an antiobsessional medication which sometimes helps with pure delusional disorders, but the patient says that, absolutely, he will not take any medication that we offer him voluntarily. 11/22--continue Zyprexa IM hs, continues to refuse family meeting with due to paranoia, refuses 2-3 trial of PO Invega to convert to injectable. 11/23--File for 304 hearing d/t ongoing psychosis, lack of insight, refusal for outpatient treatment or ongoing medication, refusal to involve , and high risk for return to violent behavior if home w/ , whom he believes is part of the conspiracy against him. 11/24 - Continue olanzapine IM, continuing to offer patient PO medication which he is consistently refusing - Pt continues to refuse to involve in conversations regarding discharge and safety planning - 304 hearing scheduled for 11/30; pt continues to be psychotic and remains unable to engage in productive safety and discharge planing, therefore remains at high risk of harm to sefl or others if he is discharged home in his current state 11/25 - Titrating olanzapine to 10mg daily; patient continues to refuse offer for PO and is therefore continuing to receive IM injections each evening - 304 hearing 11/30; pt continues to be unwilling to participate in safety and discharge planning efforts 11/26 -The patient tells me that he received olanzapine 10 mg last evening and says that he feels that it has helped him sleep better. However, he notes that his sleep difficulty is related to the fact that his sleep schedule in the hospital is substantially different from the one that he is used to at home, with bedtime here at the hospital being 3 or 4 hours earlier than he is used to. Nevertheless, he says that he believes that he is not having any side effects from olanzapine and that, in the sense that it does help him fall asleep, it helps. Nevertheless, he also repeats today that he will not continue to take any medication, including olanzapine, if he is discharged. -I spoke with the patient's today, without disclosing any protected clinical data regarding the patient. She acknowledges that he frightens her, and, particularly recently, has caused her to fear for her personal physical safety. At the same time, she says tells me that she thinks that if she gets some advice about how best to "handle somebody who is delusional" possibly by getting into individual therapy, herself, she may be able to take him home. She also reports that should he be released (she is aware of upcoming hearing) that she will agree to take him home, because she loves him and wants to protect him, but continues to fear that he may again lose control of his behavior as a function of his delusions. -Today, the patient tells me that he recognizes that in his upcoming hearing on 11/30 (304) the issue may boil down to whether he can assure that he will be safe in the community and will not represent a risk to anyone else, even if he does not take medication. He also says that he recognizes the "Catch-22" that he is in because he realizes that the hospital is likely to say that his behavior in the hospital has been positively influenced by his taking olanzapine, and that without the structure of the hospital and without the medications, he may revert to the dangerous behaviors that precipitated the admission. -Of concern is the fact that the patient's tells us today that, effe anderson yesterday, he has told her that he will no longer speak to her telephonically, and if he is released from the hospital on Saturday he will simply walk home, and if she is not comfortable being home with him she should leave. However, by the end of today he is allowing that he truly believes that his loves him and would not try to harm him if she had any choice, so he is at least considering contacting her again by telephone. 11/27 -Patient informed of 304 hearing and plan to refer to the [facility], as well as additional labs needed for that referral. -He continues to refuse a family meeting with his , who has expressed ongoing concern for her safety. He continues to refuse p.o. medication, outpatient treatment, and discussion of his aggression at home or plans to víctor igate it. He remains at risk of harm to others, particularly his , and if discharged prematurely, as she is implicated in his delusion and he believes she has part of the conspiracy against him. -Encourage the patient to attend groups and focus on his own emotional reaction to his perception of events, healthy coping skills, and a discharge safety plan; all of which thus far he has been unwilling to do. 11/28 -Patient refused PPD for [facility] referral./ He is refusing to consider a trial of Invega/MERCADO Risk Factors Assessment Male: Yes : Yes Do You Have Access To A Gun?: No ( denies that they have any guns at home) Health Problems: No Mental Health Diagnoses: Yes Substance Use Disorders: No Previous Attempt: No Previous Psychiatric Hospitalization: No Hopelessness: No Smoker: No Protective Factors Assessment : Yes Responsible for Young Children: No Employed: No Stable Relationships: No ( is supportive, but fearful of him due to his violence towards her.) Good Rapport with Provider: No (No outpatient providers.) Interval History Identifying Information SAL MAGANA is a 59-year-old M admitted on 11/14/19 19:58 on a 302 involuntary commitment for paranoia and violence at home, currently on a 303 extended involuntary commitment. Chief Complaint " The drug seems to really take its toll in the first hour after I take it". Review of Systems Sleep Information Total Hours of Sleep: 4 Sleep Comments: awake at 0400 for the day. out to the kitchen area and asked staff for hot tea. Pleasant mood. Meal Information Percent Meal Consumed - Breakfast: 100 Percent Meal Consumed - Lunch: 100 Percent Meal Consumed - Dinner: 100 Nutrition Comment: per meal record Subjective Subjective Patient was seen & assessed and interval progress reviewed with nursing and social work. Staff report he is refusing all groups, is not spontaneously interacting with staff or peers, and continues to refuse oral medication, so has been receiving IM Zyprexa daily. He spends most of this time writing/taking notes. EKG and PPD were ordered in preparation for [facility] referral, but he refused the PPD. On my assessment, he maintains that he is not psychiatrically ill and does not need medication, and has multiple complaints about the medication, including that for 30 to 60 minutes after he takes it, he gets tired and lies down, but then gets up every 3 minutes to urinate until he is dehydrated, which causes dry skin on his face the next day. He also says the medication causes his body to feel "like it's under attack every minute or two" for 30-60 min after he gets it, which he struggles to describes further, saying "there's no way to put it into words, my whole body contracts for a few seconds." He states that he can sense that "my body and my mind don't want that drug in my system," and that it is "making me feel unhealthy." Reviewed alternative treatments, including a different antipsychotic medication, and the option of a long-acting injectable antipsychotic such as Invega Sustenna. Reviewed that he would need to be willing to take oral medication for a few days first to establish tolerability, and the risks and benefits of each available treatment. He has multiple questions about the involuntary commitment process, how long it would last, and when he will be able to stop medication. He remains unwilling to allow his to be involved in treatment, stating "she does not have my best interest at heart," and that he strongly suspects that she is working as an operative for the [employer] with a goal of keeping him involuntarily committed so that he cannot share his story. He repeatedly asks if he can "talk to someone on the outside," stating that he asked his workers compensation attorney to contact [employer] for him, and believes that he is being held here as part of a political conspiracy to keep him quiet. He states "it seems like you should want to get to the bottom of everything that happened that led up to this," again going into detail about his being fired from [employer] and believes that he was intentionally targeted as part of an extensive conspiracy, and that we should be trying to determine if the anger and aggressive behavior he had prior to admission was appropriate given his situation, as he was being targeted by multiple large governments and institutions. Informed him that this is precisely what we would like to do, and that is why we have been asking to have a family meeting with his . He continues to refuse this, stating that she likely works for the [employer] and is working against him, and he knows this because her mother worked for the [place] police and lived with them for a time. He says "it all sounds really corrupt and criminal in my mind, you have a serious question of these things happening, and it seems like the way of this is all just a political way to keep my story quiet." He then says that he will allow us to meet with his , but only if the [place] [employer] and bit sander are present, "because they should know a lot about this, what's going on." He wants to know if he could be discharged if he said that he was going to live in a different house, away from his , stating they have an apartment in [place] and he could go there. Physical Exam Psychiatric Orientation: alert Poorly cooperative, argumentative. Wearing the same clothes since admission; hospital scrub pants and a skinner button-down shirt. Chin length skinner hair that appears unwashed and is sticking out from his head. Seated crosslegged on his bed in no acute distress. Eye Contact: + fair eye contact Motor Behavior: no abnormal motor movements Irritable tone. Affect: + irritable affect and + constricted affect Mood: + irritable mood Thought Process: + circumstantial thought process and + perseveration (On delusions of persecution); + thought process not clear or coherent Thought Content: + preoccupation, + paranoid, + delusions and + persecution Suicidal Thoughts: denies suicidal thoughts Homicidal Thoughts: denies homicidal thoughts Hallucinations: no auditory hallucinations Cognition: recent memory grossly intact and language grossly intact; + attention not intact Estimated Intelligence: + above average estimated intelligence Insight: + severely impaired insight Judgement: + impaired judgement Vital Signs (Past 24 Hours) Last Vital Signs Temp 36.3 C L 11/29/19 06:30 Pulse 86 11/29/19 06:30 Resp 18 11/29/19 06:30 BP 114/75 11/29/19 06:30 Pulse Ox 98 11/14/19 20:15 Results & Data ([facility]) Laboratory Results Laboratory Results - last 24 hr 11/28/19 12:09 Hepatitis C Ab Screen Neg Current Inpatient Medications Current Inpatient Medications: Current Inpatient Medications Acetaminophen (Tylenol) 650 mg PO Q4H PRN PRN Reason: Headache or Minor Fever Stop: 12/14/19 20:43 Al Hydrox/Mg Hydrox/Simethicone (Maalox) 30 ml PO Q4H PRN PRN Reason: GI Upset Stop: 12/14/19 20:43 Bismuth Subsalicylate (Kaopectate) 15 ml PO PRN PRN PRN Reason: Loose Stool Stop: 12/14/19 20:43 Haloperidol (Haldol) 5 mg PO Q8H PRN PRN Reason: agitation/psychosis Stop: 12/15/19 09:59 Haloperidol Lactate (Haldol) 5 mg IM Q8H PRN PRN Reason: for behavioral emergency Stop: 12/15/19 09:50 Hydroxyzine HCl (Vistaril) 50 mg PO HSZ PRN PRN Reason: Insomnia Stop: 12/14/19 20:43 Hydroxyzine HCl (Vistaril) 25 mg PO Q4H PRN PRN Reason: Anxiety Stop: 12/14/19 20:43 Lorazepam (Ativan) 1 mg PO Q8H PRN PRN Reason: Anxiety/irritability Stop: 12/15/19 09:52 Magnesium Hydroxide (Milk Of Magnesia) 30 ml PO DAILY PRN PRN Reason: Constipation Stop: 12/14/19 20:43 Miscellaneous (Ppd Check) 1 ea N/A Q48H ONE Stop: 11/30/19 11:25 Olanzapine (Zyprexa Zydis Od) 10 mg PO HS ADRIANE Stop: 12/20/19 21:59 Last Admin: 11/28/19 21:44 Dose: Not Given Documented by: Olanzapine (Zyprexa) 10 mg IM DAILY PRN PRN Reason: Refusal of PO Olanzapine Stop: 12/20/19 13:44 Last Admin: 11/28/19 21:44 Dose: 10 mg Documented by: Sodium Chloride ([place] Nasal) 1 - 2 sprays NA PRN PRN PRN Reason: Nasal Dryness/Congestion Stop: 12/14/19 20:43 Last Admin: 11/20/19 23:10 Dose: 2 sprays Documented by: Post Discharge Appointments Primary Care Physician Name Of Family Doctor: [place] [facility] - Dr. Jeffrey Torres Primary Care Provider Appointment Comment: [address] [facility], [address], [place] [address] Contact Information Discharge Discharge Address: [address] [place] [address], [address], [place] [address]
[2019-11-29] MEDS: OLANZapine 10 MG/2.1 ML SDV IM PRN (21:39)
[2019-11-29] MEDS: OLANZAPINE ZYDIS 10 MG ORALLY DIS. TAB PO SCH (21:48)
--- NOTE | 2019-11-30 07:08 | Psychiatric Progress Note ---
Date of Service November 30, 2019 Impression / Recommendations Impression Primary diagnosis appears to be delusional disorder, persecutory type. Information provided by his indicates that several years ago certain changes in his department at the [employer] triggered a certain amount of distrust by the patient, which gradually grew into the elaborate, highly systematized delusional belief system that is currently in place. His delusional system was likely amplified by his tendency to obsess, focus on patterns, and look for theoretical explanations. This is typical of delusional disorders, as they often begin with a fairly innocuous set of circumstances that, over time, blossom into full-blown, highly systematized delusional beliefs, and the person who suffers from the delusional disorder focuses upon the referenced circumstances, obsesses about them, and, over time, expands the delusional belief system to include explanations for portions of the delusional system that have been challenged by other people, which has been very evident here. Although his behavior on the unit has been free of threats and violence, he is refusing to involve his , who reports fear for her safety given his behavior (violence directed at her prior to admission) and the fact that he has implicated her in his delusional system and believes she is conspiring within [place] government against him. Further, he is uncooperative with treatment, is refusing medication (although not resisting when given intramuscular injections of olanzapine), and declining outpatient treatment. This is a difficult and complex situation. The patient's dyscontrol behavior does not seem to be specific to his , and even were he to leave the hospital without going home to his , the behaviors described by his give reason to predict that he would quickly become a danger to himself or other people in the community. He lacks insight, and expresses a firm belief that he is on a mission to protect and save innocent people. His calm her behavior here is also within the context of his taking psychiatric medications, and he has made it abundantly clear that he will not consider taking any psychiatric medication unless it is forced on him in the hospital. (1) Unspecified psychosis not due to a substance or known physiological condition: 11/14 Patient admitted on an involuntary status to the behavioral health unit for continued assessment and treatment as indicated He will be maintained on every 15 minute safety checks We will continue to expand database Consider neuroimaging for w/u of psychosis prn orders for Ativan and Haldol today. I suspect it is likely that he will require medications over objection before he permits any treatment due to what appears to be severely impaired insight. Patient will be reevaluated tomorrow for psychiatric second opinion regarding need for treatment over objection. -presently patient requires continued inpatient hospitalization for workup and treatment of psychosis which was been recently associated with some violent behavior at home. he is at risk of harm to self and others if discharged prematurely. 11/15 -File for 303 involuntary commitment. -Patient is refusing to consider medication, but has haloperidol and Ativan as needed ordered. Would recommend a trial of olanzapine, and agree with medications over objection as he has severe psychotic symptoms which are i mpairing his ability to function and placing both himself and others at risk of harm due to his violent behavior at home. -Patient is refused to answer questions about whether or not he has guns, so we will need to get this information from his . At this point he is refusing to sign a release for her or anyone else. -Excuse patient from groups due to the severity of his psychosis and violent behavior. Medically necessary private room room due to the same. 11/16 -303 involuntary commitment granted. -Patient continues to refuse to allow his to be involved in treatment. He is now not denying that he was aggressive at home, but is refusing to discuss it, and is focused only on the conspiracy which he says led to his behavior. -Continue to consider medications over objection. At this point, we are attempting to engage the patient in treatment volitionally, and the risk of forcing medications at this time is further alienating him. However, if he is unable to engage in any manner, we will need to reconsider medications over objection. -Patient may attend groups if able to maintain appropriate behavioral control. -Patient has still not been willing to complete admission assessments, and has not been willing to provide certain information. 11/17 -Recommend medications over objection, as the patient is unable to engage in treatment due to the severity of his psychosis and lack of insight, and remains at imminent risk of harm to others, specifically his , if his symptoms remain untreated. He is floridly delusional, now implicating hospital staff in his delusions. He is not able to work as a result of his psychosis, and his is not able to work due to having to supervise him, and is fearful of him given his escalating violence at home. He continues to refuse to allow her to be involved in treatment, is not attending groups, and is refusing to even discuss medication options. Dr. Duarte recommended medications over objection, and I agree, as the patient is unlikely to improve without antipsychotic medication. -Start olanzapine Zydis 5 mg daily, with a 5 mg IM backup for refusal. Order FLP and FG tomorrow for baseline on an atypical antipsychotic. He will also need a medical work-up of psychosis once he is more cooperative, including brain MRI. -Ongoing poor sleep, staff will limit bright lights near his room at night, and if he can be compliant with medication, can move olanzapine to bedtime to assist with sleep. Giving during the day initially to allow for adequate staff in case of need for physical hold or restraint to receive medication. 11/18 - Continue olanzapine 5mg daily (offering PO Zydis with IM for refusal) - medications over objection, though patient has been cooperative with his preference for IM administration - Pt offered again PO olanzapine, with the eventual option of converting the medication to HS dosing if he continues to be cooperative - as he reports sedation after receiving the medication - Pt remains delusional and paranoid, unable to discuss examples of how we can assist him during his stay - Maintain MNPR due to level of psychosis - Fasting glucose - wnl at 90; triglycerides elevated at 188, remainder of lipid panel wnl - Continue attempts to coordinate care with patient's 11/19 -Patient is continuing to say that he does not wish for us to speak with his , and he again tells us that he will not sign a consent that will allow us to contact her. As above, his assertion is that he does not want us talking to her because she may tell us things that we will include in the record and that will eventually be used against him, either by the government or by [facility]. As a compromise, the patient says that he will ask his to call us and tell us whether she continues to feel that he is a danger to her, himself, or to anyone else. It was explained that we would also need to be able to talk to her about our concerns and we would need to coordinate aftercare arrangements with her. The patient replied to that by saying simply that he would not allow us to say anything about his care or recommended treatment to her at this time. -There seem to be some early indications that the patient may be responding to olanzapine. Today, when I told him that our concerns about his safety had not to do with his behaviors here in the hospital but, instead, about his behaviors at home (in the community) he quickly responded, "yes, but I am getting medication here!" (He almost immediately realized the implication of what he had just said, and he immediately changed the subject and began talking about how various entities were deliberately provoking him into losing his temper and acting in anger. -The patient tells us that he is using the fact that he has been given intramuscular medications against his will as evidence of our being the "dupes" or agents of the entities behind the conspiracy to silence him. He also reiterates that he believes that taking medication voluntarily is tantamount to acknowledging his need for psychiatric treatment, and he tells us that he has absolutely no psychiatric problem at all and does not need any treatment. -Today, we are increasing his olanzapine's as follows. We will begin olanzapine ODT 10 mg at bedtime starting tonight. We have also changed his order for medications over objection to olanzapine 10 mg IM daily for refusal of p.o. olanzapine. -Although the patient's presentation has many of the symptoms of a delusional disorder, persecutory typegiven the elaborate nature of the delusional system, we continue to suspect that what we are seeing is a somewhat atypical jorge, or discrete manic episodes overlaying a underlying delusional disorder. If the explanation for the patient's presentation is symptoms of a manic episode, his prognosis is better. We discussed the possibility of adding an antiobsessional medication which sometimes helps with pure delusional disorders, but the patient says that, absolutely, he will not take any medication that we offer him voluntarily. 11/22--continue Zyprexa IM hs, continues to refuse family meeting with due to paranoia, refuses 2-3 trial of PO Invega to convert to injectable. 11/23--File for 304 hearing d/t ongoing psychosis, lack of insight, refusal for outpatient treatment or ongoing medication, refusal to involve , and high risk for return to violent behavior if home w/ , whom he believes is part of the conspiracy against him. 11/24 - Continue olanzapine IM, continuing to offer patient PO medication which he is consistently refusing - Pt continues to refuse to involve in conversations regarding discharge and safety planning - 304 hearing scheduled for 11/30; pt continues to be psychotic and remains unable to engage in productive safety and discharge planing, therefore remains at high risk of harm to sefl or others if he is discharged home in his current state 11/25 - Titrating olanzapine to 10mg daily; patient continues to refuse offer for PO and is therefore continuing to receive IM injections each evening - 304 hearing 11/30; pt continues to be unwilling to participate in safety and discharge planning efforts 11/26 -The patient tells me that he received olanzapine 10 mg last evening and says that he feels that it has helped him sleep better. However, he notes that his sleep difficulty is related to the fact that his sleep schedule in the hospital is substantially different from the one that he is used to at home, with bedtime here at the hospital being 3 or 4 hours earlier than he is used to. Nevertheless, he says that he believes that he is not having any side effects from olanzapine and that, in the sense that it does help him fall asleep, it helps. Nevertheless, he also repeats today that he will not continue to take any medication, including olanzapine, if he is discharged. -I spoke with the patient's today, without disclosing any protected cl inical data regarding the patient. She acknowledges that he frightens her, and, particularly recently, has caused her to fear for her personal physical safety. At the same time, she says tells me that she thinks that if she gets some advice about how best to "handle somebody who is delusional" possibly by getting into individual therapy, herself, she may be able to take him home. She also reports that should he be released (she is aware of upcoming hearing) that she will agree to take him home, because she loves him and wants to protect him, but continues to fear that he may again lose control of his behavior as a function of his delusions. -Today, the patient tells me that he recognizes that in his upcoming hearing on 11/30 (304) the issue may boil down to whether he can assure that he will be safe in the community and will not represent a risk to anyone else, even if he does not take medication. He also says that he recognizes the "Catch-22" that he is in because he realizes that the hospital is likely to say that his behavior in the hospital has been positively influenced by his taking olanzapine, and that without the structure of the hospital and without the medications, he may revert to the dangerous behaviors that precipitated the admission. -Of concern is the fact that the patient's tells us today that, effective yesterday, he has told her that he will no longer speak to her telephonically, and if he is released from the hospital on Saturday he will simply walk home, and if she is not comfortable being home with him she should leave. However, by the end of today he is allowing that he truly believes that his loves him and would not try to harm him if she had any choice, so he is at least considering contacting her again by telephone. 11/27 -Patient informed of 304 hearing and plan to refer to the [facility], as well as additional labs needed for that referral. -He continues to refuse a family meeting with his , who has expressed ongoing concern for her safety. He continues to refuse p.o. medication, outpatient treatment, and discussion of his aggression at home or plans to mitigate it. He remains at risk of harm to others, particularly his , and if discharged prematurely, as she is implicated in his delusion and he believes she has part of the conspiracy against him. -Encourage the patient to attend groups and focus on his own emotional reaction to his perception of events, healthy coping skills, and a discharge safety plan; all of which thus far he has been unwilling to do. 11/28 - 11/29 -Patient refused PPD, EKG, and chest x-ray for [facility] referral. He is refusing to consider a trial of Invega/MERCADO, and continues to refuse a family meeting. -304 involuntary commitment hearing scheduled for 12/01/2019, and will then pursue referral to the [facility]. Risk Factors Assessment Male: Yes : Yes Do You Have Access To A Gun?: No ( denies that they have any guns at home) Health Problems: No Mental Health Diagnoses: Yes Substance Use Disorders: No Previous Attempt: No Previous Psychiatric Hospitalization: No Hopelessness: No Smoker: No Protective Factors Assessment : Yes Responsible for Young Children: No Employed: No Stable Relationships: No ( is supportive, but fearful of him due to his violence towards her.) Good Rapport with Provider: No (No outpatient providers.) Interval History Identifying Information SAL MAGANA is a 59-year-old M admitted on 11/14/19 19:58 on a 302 involuntary commitment for paranoia and violence at home, currently on a 303 extended involuntary commitment. Chief Complaint " The usual". Review of Systems Sleep Information Total Hours of Sleep: 8 Sleep Comments: awake at 0530 for the day Meal Information Percent Meal Consumed - Breakfast: 100 Percent Meal Consumed - Lunch: 100 Percent Meal Consumed - Dinner: 100 Nutrition Comment: per meal record Subjective Subjective Patient was seen & assessed and interval progress reviewed with treatment team. Staff report he continues to refuse all groups, does not interact with staff or peers, and spends all his time writing. He continues to refuse oral antipsychotic medication and is getting the olanzapine shot nightly. On my assessment, he is seen in the day room where he is seated at a table with stacks of papers covered with math problems, and multiple books. He talks about the exercises he has been doing here, and states that the last couple of days his abdominal muscles were tight and achy, and believes this is due to antipsychotic medication; "I have a strong feeling that drug is wreaking havoc on my body." He also shows me his palm, and points to lines on it which he believes are due to dehydration and also caused by the antipsychotic medication. He states "makes me wonder a lot about what drug it really is." Offered to give him a printout about the medication and its side effects, which he declined, but asks for verbal information about it; relayed information regarding mechanism of action, impact on psychiatric symptoms, potential side effects including metabolic syndrome. Reviewed his cardiac history, which he denies. He gives details of several bad experiences he had with medical procedures in the past, including a surgery to correct septal deviation which he says resulted in worse symptoms, a prostate biopsy which he says resulted in ICU admission for sepsis, and a chiropractic cervical manipulation which caused a TIA. He also talks about his difficulty tolerating brain MRIs, and states that he did receive 1 with sedation. He says he spoke to his 2 or 3 times yesterday, and she informed him they cannot go to [place] as [place] border has been [place] due to coronavirus. He continues to state he wants to leave the hospital and does not want to take medication, does not believe he is mentally ill, and believes that he has been pursued and persecuted by people related to the [place] government as a result of knowledge he has about past crimes against humanity. 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 He refuses to say how these unknown others are aware that he is writing order to describe the methods to use to suppress him, as he states "it sounds like paranoia, that would be right before a declaration of paranoia." He says he knows that people were aware of his behavior because when he was working for the [employer] and would document things that have happened to him people would immediately "close in on me and retaliate." He says the [employer] put up posters on campus encouraging people to report abuses, but they just did that to "find the dissidence and suppress them." He states that when he was in [place], he could "feel people closing in on me," and that a man approached him on the street and commented on his [facility] T-shirt, and during their ensuing conversation, he realized that this person was also an operative and "it was their way of telling me that wherever I am, they are to." He states that the people conspiring against him "implicitly threaten me around the clock," and he now believes "the whole thing started in [place]." When exploring ways that he might cope with this, including the idea of leaving it behind and moving on with his life, he states he is unable to do that and knows that there is "no way out." He states that if he were discharged, he would "go home and shrimp picker our lives right where we left off, and probably be much more careful not to do anything to land back in here." He is refusing the chest x-ray, PPD, and EKG that were ordered for [facility] medical clearance. All questions about what will happen during the 304 hearing and afterwards, and reviewed what I will say and the treatment recommendations, including the recommendations for a long-acting injectable antipsychotic, and involvement of his in treatment and discharge planning. He continues to refuse this. Physical Exam Psychiatric Orientation: alert and cooperative Apperance: appropriately dressed (Wearing the same clothes) and + disheveled (Hair sticking up erratically from head) Eye Contact: + fair eye contact Motor Behavior: steady gait and station and no abnormal motor movements Speech: normal rate/rhythm/volume of speech Talkative Stable, mildly anxious and dysphoric Thought Process: + circumstantial thought process Thought Content: + preoccupation, + paranoid, + delusions and + persecution Suicidal Thoughts: denies suicidal thoughts Homicidal Thoughts: denies homicidal thoughts Hallucinations: no auditory hallucinations Cognition: recent memory grossly intact, remote memory grossly intact, attention grossly intact and language grossly intact Estimated Intelligence: consistent with education level Insight: + severely impaired insight Judgement: + poor judgement Vital Signs (Past 24 Hours) Last Vital Signs Temp 36.7 C 11/30/19 06:41 Pulse 61 11/30/19 06:41 Resp 18 11/30/19 06:41 BP 121/81 11/30/19 06:42 Pulse Ox 98 11/14/19 20:15 Results & Data ([facility]) Current Inpatient Medications Current Inpatient Medications: Current Inpatient Medications Acetaminophen (Tylenol) 650 mg PO Q4H PRN PRN Reason: Headache or Minor Fever Stop: 12/14/19 20:43 Al Hydrox/Mg Hydrox/Simethicone (Maalox) 30 ml PO Q4H PRN PRN Reason: GI Upset Stop: 12/14/19 20:43 Bismuth Subsalicylate (Kaopectate) 15 ml PO PRN PRN PRN Reason: Loose Stool Stop: 12/14/19 20:43 Haloperidol (Haldol) 5 mg PO Q8H PRN PRN Reason: agitation/psychosis Stop: 12/15/19 09:59 Haloperidol Lactate (Haldol) 5 mg IM Q8H PRN PRN Reason: for behavioral emergency Stop: 12/15/19 09:50 Hydroxyzine HCl (Vistaril) 50 mg PO HSZ PRN PRN Reason: Insomnia Stop: 12/14/19 20:43 Hydroxyzine HCl (Vistaril) 25 mg PO Q4H PRN PRN Reason: Anxiety Stop: 12/14/19 20:43 Lorazepam (Ativan) 1 mg PO Q8H PRN PRN Reason: Anxiety/irritability Stop: 12/15/19 09:52 Magnesium Hydroxide (Milk Of Magnesia) 30 ml PO DAILY PRN PRN Reason: Constipation Stop: 12/14/19 20:43 Miscellaneous (Ppd Check) 1 ea N/A Q48H ONE Stop: 11/30/19 11:25 Olanzapine (Zyprexa Zydis Od) 10 mg PO HS ADRIANE Stop: 12/20/19 21:59 Last Admin: 11/29/19 21:48 Dose: Not Given Documented by: Olanzapine (Zyprexa) 10 mg IM DAILY PRN PRN Reason: Refusal of PO Olanzapine Stop: 12/20/19 13:44 Last Admin: 11/29/19 21:39 Dose: 10 mg Documented by: Sodium Chloride ([place] Nasal) 1 - 2 sprays NA PRN PRN PRN Reason: Nasal Dryness/Congestion Stop: 12/14/19 20:43 Last Admin: 11/20/19 23:10 Dose: 2 sprays Documented by: Post Discharge Appointments Primary Care Physician Name Of Family Doctor: [facility] - Dr. Jeffrey Torres Primary Care Provider Appointment Comment: [id number] [facility], [address], [place] [address] Contact Information Discharge Discharge Address: [address] [place] [address], [address], [place] [address]
[2019-11-30] MEDS ORDERED: PPD CHECK ONE (11:24)
[2019-11-30] MEDS: OLANZapine 10 MG/2.1 ML SDV IM PRN (22:03)
[2019-11-30] MEDS: OLANZAPINE ZYDIS 10 MG ORALLY DIS. TAB PO SCH (22:44)
--- NOTE | 2019-12-01 08:09 | Psychiatric Progress Note ---
Date of Service December 01, 2019 Impression / Recommendations Impression Primary diagnosis appears to be delusional disorder, persecutory type. Information provided by his indicates that several years ago certain changes in his department at the [facility] triggered a certain amount of distrust by the patient, which gradually grew into the elaborate, highly systematized delusional belief system that is currently in place. His delusional system was likely amplified by his tendency to obsess, focus on patterns, and look for theoretical explanations. This is typical of delusional disorders, as they often begin with a fairly innocuous set of circumstances that, over time, blossom into full-blown, highly systematized delusional beliefs, and the person who suffers from the delusional disorder focuses upon the referenced circumstances, obsesses about them, and, over time, expands the delusional belief system to include explanations for portions of the delusional system that have been challenged by other people, which has been very evident here. Although his behavior on the unit has been free of threats and violence, he is refusing to involve his , who reports fear for her safety given his behavior (violence directed at her prior to admission) and the fact that he has implicated her in his delusional system and believes she is conspiring within [place] government against him. Further, he is uncooperative with treatment, is refusing medication (although not resisting when given intramuscular injections of olanzapine), and declining outpatient treatment. This is a difficult and complex situation. The patient's dyscontrol behavior does not seem to be specific to his , and even were he to leave the hospital without going home to his , the behaviors described by his give reason to predict that he would quickly become a danger to himself or other people in the community. He lacks insight, and expresses a firm belief that he is on a mission to protect and save innocent people. His calm her behavior here is also within the context of his taking psychiatric medications, and he has made it abundantly clear that he will not consider taking any psychiatric medication unless it is forced on him in the hospital. 304 extended involuntarily commitment was granted on 11/30, and subsequent plan is for referral to the [facility] as he remains a danger to himself and others and is refusing to engage in conversation regarding alternative discharge options. (1) Unspecified psychosis not due to a substance or known physiological condition: 11/14 Patient admitted on an involuntary status to the behavioral health unit for continued assessment and treatment as indicated He will be maintained on every 15 minute safety checks We will continue to expand database Consider neuroimaging for w/u of psychosis prn orders for Ativan and Haldol today. I suspect it is likely that he will require medications over objection before he permits any treatment due to what appears to be severely impaired insight. Patient will be reevaluated tomorrow for psychiatric second opinion regarding need for treatment over objection. -presently patient requires continued inpatient hospitalization for workup and treatment of psychosis which was been recently associated with some violent behavior at home. he is at risk of harm to self and others if discharged prematurely. 11/15 -File for 303 involuntary commitment. -Patient is refusing to consider medication, but has haloperidol and Ativan as needed ordered. Would recommend a trial of olanzapine, and agree with medications over objection as he has severe psychotic symptoms which are impairing his ability to function and placing both himself and others at risk of harm due to his violent behavior at home. -Patient is refused to answer questions about whether or not he has guns, so we will need to get this information from his . At this point he is refusing to sign a release for her or anyone else. -Excuse patient from groups due to the severity of his psychosis and violent behavior. Medically necessary private room room due to the same. 11/16 -303 involuntary commitment granted. -Patient continues to refuse to allow his to be involved in treatment. He is now not denying that he was aggressive at home, but is refusing to discuss it, and is focused only on the conspiracy which he says led to his behavior. -Continue to consider medications over objection. At this point, we are attempting to engage the patient in treatment volitionally, and the risk of forcing medications at this time is further alienating him. However, if he is unable to engage in any manner, we will need to reconsider medications over objection. -Patient may attend groups if able to maintain appropriate behavioral control. -Patient has still not been willing to complete admission assessments, and has not been willing to provide certain information. 11/17 -Recommend medications over objection, as the patient is unable to engage in treatment due to the severity of his psychosis and lack of insight, and remains at imminent risk of harm to others, specifically his , if his symptoms remain untreated. He is floridly delusional, now implicating hospital staff in his delusions. He is not able to work as a result of his psychosis, and his is not able to work due to having to supervise him, and is fearful of him given his escalating violence at home. He continues to refuse to allow her to be involved in treatment, is not attending groups, and is refusing to even discuss medication options. Dr. Duarte recommended medications over objection, and I agree, as the patient is unlikely to improve without antipsychotic medication. -Start olanzapine Zydis 5 mg daily, with a 5 mg IM backup for refusal. Order FLP and FG tomorrow for baseline on an atypical antipsychotic. He will also need a medical work-up of psychosis once he is more cooperative, including brain MRI. -Ongoing poor sleep, staff will limit bright lights near his room at night, and if he can be compliant with medication, can move olanzapine to bedtime to assist with sleep. Giving during the day initially to allow for adequate staff in case of need for physical hold or restraint to receive medication. 4/ - Continue olanzapine 5mg daily (offering PO Zydis with IM for refusal) - medications over objection, though patient has been cooperative with his preference for IM administration - Pt offered again PO olanzapine, with the eventual option of converting the medication to HS dosing if he continues to be cooperative - as he reports sedation after receiving the medication - Pt remains delusional and paranoid, unable to discuss examples of how we can assist him during his stay - Maintain MNPR due to level of psychosis - Fasting glucose - wnl at 90; triglycerides elevated at 188, remainder of lipid panel wnl - Continue attempts to coordinate care with patient's 4/ -Patient is continuing to say that he does not wish for us to speak with his , and he again tells us that he will not sign a consent that will allow us to contact her. As above, his assertion is that he does not want us talking to her because she may tell us things that we will include in the record and that will eventually be used against him, either by the government or by [facility]. As a compromise, the patient says that he will ask his to call us and tell us whether she continues to feel that he is a danger to her, himself, or to anyone else. It was explained that we would also need to be able to talk to her about our concerns and we would need to coordinate aftercare arrangements with her. The patient replied to that by saying simply that he would not allow us to say anything about his care or recommended treatment to her at this time. -There seem to be some early indications that the patient may be responding to olanzapine. Today, when I told him that our concerns about his safety had not to do with his behaviors here in the hospital but, instead, about his behaviors at home (in the community) he quickly responded, "yes, but I am getting medication here!" (He almost immediately realized the implication of what he had just said, and he immediately changed the subject and began talking about how various entities were deliberately provoking him into losing his temper and acting in anger. -The patient tells us that he is using the fact that he has been given intramuscular medications against his will as evidence of our being the "dupes" or agents of the entities behind the conspiracy to silence him. He also reiterates that he believes that taking medication voluntarily is tantamount to acknowledging his need for psychiatric treatment, and he tells us that he has absolutely no psychiatric problem at all and does not need any treatment. -Today, we are increasing his olanzapine's as follows. We will begin olanzapine ODT 10 mg at bedtime starting tonight. We have also changed his order for medications over objection to olanzapine 10 mg IM daily for refusal of p.o. olanzapine. -Although the patient's presentation has many of the symptoms of a delusional disorder, persecutory typegiven the elaborate nature of the delusional system, we continue to suspect that what we are seeing is a somewhat atypical jorge, or discrete manic episodes overlaying a underlying delusional disorder. If the explanation for the patient's presentation is symptoms of a manic episode, his prognosis is better. We discussed the possibility of adding an antiobsessional medication which sometimes helps with pure delusional disorders, but the patient says that, absolutely, he will not take any medication that we offer him voluntarily. 11/22--continue Zyprexa IM hs, continues to refuse family meeting with due to paranoia, refuses 2-3 trial of PO Invega to convert to injectable. 11/23--File for 304 hearing d/t ongoing psychosis, lack of insight, refusal for outpatient treatment or ongoing medication, refusal to involve , and high risk for return to violent behavior if home w/ , whom he believes is part of the conspiracy against him. 11/24 - Continue olanzapine IM, continuing to offer patient PO medication which he is consistently refusing - Pt continues to refuse to involve in conversations regarding discharge and safety planning - 304 hearing scheduled for 11/30; pt continues to be psychotic and remains unable to engage in productive safety and discharge planing, therefore remains at high risk of harm to sefl or others if he is discharged home in his current state 11/25 - Titrating olanzapine to 10mg daily; patient continues to refuse offer for PO and is therefore continuing to receive IM injections each evening - 304 hearing 11/30; pt continues to be unwilling to participate in safety and discharge planning efforts 11/26 -The patient tells me that he received olanzapine 10 mg last evening and says that he feels that it has helped him sleep better. However, he notes that his sleep difficulty is related to the fact that his sleep schedule in the hospital is substantially different from the one that he is used to at home, with bedtime here at the hospital being 3 or 4 hours earlier than he is used to. Nevertheless, he says that he believes that he is not having any side effects from olanzapine and that, in the sense that it does help him fall asleep, it helps. Nevertheless, he also repeats today that he will not continue to take any medication, including olanzapine, if he is discharged. -I spoke with the patient's today, without disclosing any protected clinical data regarding the patient. She acknowledges that he frightens her, and, particularly recently, has caused her to fear for her personal physical safety. At the same time, she says tells me that she thinks that if she gets some advice about how best to "handle somebody who is delusional" possibly by getting into individual therapy, herself, she may be able to take him home. She also reports that should he be released (she is aware of upcoming hearing) that she will agree to take him home, because she loves him and wants to protect him, but continues to fear that he may again lose control of his behavior as a function of his delusions. -Today, the patient tells me that he recognizes that in his upcoming hearing on 11/30 (304) the issue may boil down to whether he can assure that he will be safe in the community and will not represent a risk to anyone else, even if he does not take medication. He also says that he recognizes the "Catch-22" that he is in because he realizes that the hospital is likely to say that his behavior in the hospital has been positively influenced by his taking olanzapine, and that without the structure of the hospital and without the medications, he may revert to the dangerous behaviors that precipitated the admission. -Of concern is the fact that the patient's tells us today that, effective yesterday, he has told her that he will no longer speak to her telephonically, and if he is released from the hospital on Saturday he will simply walk home, and if she is not comfortable being home with him she should leave. However, by the end of today he is allowing that he truly believes that his loves him and would not try to harm him if she had any choice, so he is at least considering contacting her again by telephone. 11/27 -Patient informed of 304 hearing and plan to refer to the [facility], as well as additional labs needed for that referral. -He continues to refuse a family meeting with his , who has expressed ongoing concern for her safety. He continues to refuse p.o. medication, outpatient treatment, and discussion of his aggression at home or plans to mitigate it. He remains at risk of harm to others, particularly his , and if discharged prematurely, as she is implicated in his delusion and he believes she has part of the conspiracy against him. -Encourage the patient to attend groups and focus on his own emotional reaction to his perception of events, healthy coping skills, and a discharge safety plan; all of which thus far he has been unwilling to do. 11/28 - 11/29 -Patient refused PPD, EKG, and chest x-ray for [facility] referral. He is refusing to consider a trial of Invega/MERCADO, and continues to refuse a family meeting. -304 involuntary commitment hearing scheduled for 12/01/2019, and will then pursue referral to the [facility]. 11/30 - 304 involuntary commitment granted today, referral to the [facility] is reportedly supported by the [facility] at this time - Pt was again offered PPD, EKG and CXR for [facility] referral, which he again declined - Although he is not overtly refusing medication changes, he does verbalize desire to give olanzapine "another week" before switching to another agent. Recommendation for an MERCADO, specifically paliperidone, was discussed with patient - who is declining at this time - Pt continues to refuse to involve his in his treatment, her input is specifically requested regarding safety and discharge planning Risk Factors Assessment Male: Yes : Yes Do You Have Access To A Gun?: No ( denies that they have any guns at home) Health Problems: No Mental Health Diagnoses: Yes Substance Use Disorders: No Previous Attempt: No Previous Psychiatric Hospitalization: No Hopelessness: No Smoker: No Protective Factors Assessment : Yes Responsible for Young Children: No Employed: No Stable Relationships: No ( is supportive, but fearful of him due to his violence towards her.) Good Rapport with Provider: No (No outpatient providers.) Interval History Identifying Information SAL MAGANA is a 59-year-old M admitted on 11/14/19 19:58 on a 302 involuntary commitment for paranoia and violence at home, on a 304 extended involuntary commitment as of 11/30. Chief Complaint "Hello there. And how are you today?" Review of Systems Notes Constitutional: admits to ongoing fatigue, perceived to be related to olanzapine Cardiovascular: denied Respiratory: denied Gastrointestinal: denied Neurological: denied Psychiatric: denies symptoms other than stated above Total of at least 10 systems reviewed, pertinent positives as above and in HPI. Sleep Information Total Hours of Sleep: 5 Sleep Comments: pt JOYCE @0500 and thereafter. pt busy writing on his pad in the dayarea. pt pleasant. pt on q-15 minute checks Meal Information Percent Meal Consumed - Breakfast: 100 Percent Meal Consumed - Lunch: 100 Percent Meal Consumed - Dinner: 100 Nutrition Comment: per meal record Subjective Subjective Patient was seen & assessed and interval progress reviewed with nursing and social work. Staff report the patient continues to be superficially pleasant, though has continued to refuse tests ordered for [facility] referral. Pt is scheduled for a 304 hearing this morning - hearing to take place via phone conference, Dr. Garcia to provide testimony. 304 was granted and it is reported that the [facility] supports referral to [facility], as patient remains unwilling to engage in alternative discharge planning. Pt was seen today to assess progress since admission. Although he is polite, conversation continues to be rather superficial and short. Pt was observed to be completing math equations. He again declined request to complete EKG and PPD for [facility] referral as "if they are not mandatory, then I would rather not. I've had terrible luck with procedures, and I'd rather not risk anything." Pt was reminded that these tests are non-invasive and are rather low risk, but still declined. Pt does indicate that he is aware a referral to [facility] is being pursued, and maintains that he will "allow things to play out." He continues to demonstrate little desire to work toward an alternative discharge plan at this time. Pt was also invited to consider alternative medication options, with ultimate desire to pursue an MERCADO if agreeable. Although patient is not willing to comment on any benefits he perceives from continued use of olanzapine, he does states "I feel like I've just started adjusting to the medication and I would like to give it some more time before I change to something completely different. I'm sure a new medication with new side effects would take just as much adjusting." Pt suggested the conversation about mediations be revisited in "about a week, then we can discuss again." Pt denied any other concerns presently. Physical Exam Psychiatric Orientation: alert, oriented to person, oriented to place and cooperative (superficially) Apperance: appropriately dressed (casually, but wearing same clothes for several days) and appropriately groomed (hygiene appearing adequate, though hair is long and unkempt) Eye Contact: + fair eye contact Motor Behavior: no abnormal motor movements (observed while sitting in day area, completing math equations) Speech: normal rate/rhythm/volume of speech Affect: + blunted affect (not appearing overtly depressed) Mood: no depressed mood and no anxious mood Thought Process: + circumstantial thought process and + perseveration Thought Content: + preoccupation, + paranoid, + delusions and + persecution Suicidal Thoughts: denies suicidal thoughts Homicidal Thoughts: denies homicidal thoughts Hallucinations: no auditory hallucinations and no visual hallucinations Cognition: attention grossly intact and language grossly intact Estimated Intelligence: consistent with education level Insight: + severely impaired insight Judgement: + poor judgement Vital Signs (Past 24 Hours) Last Vital Signs Temp 36.6 C 12/01/19 06:44 Pulse 73 12/01/19 06:45 Resp 18 12/01/19 06:44 BP 128/87 12/01/19 06:45 Pulse Ox 98 11/14/19 20:15 Results & Data ([facility]) Current Inpatient Medications Current Inpatient Medications: Current Inpatient Medications Acetaminophen (Tylenol) 650 mg PO Q4H PRN PRN Reason: Headache or Minor Fever Stop: 12/14/19 20:43 Al Hydrox/Mg Hydrox/Simethicone (Maalox) 30 ml PO Q4H PRN PRN Reason: GI Upset Stop: 12/14/19 20:43 Bismuth Subsalicylate (Kaopectate) 15 ml PO PRN PRN PRN Reason: Loose Stool Stop: 12/14/19 20:43 Haloperidol (Haldol) 5 mg PO Q8H PRN PRN Reason: agitation/psychosis Stop: 12/15/19 09:59 Haloperidol Lactate (Haldol) 5 mg IM Q8H PRN PRN Reason: for behavioral emergency Stop: 12/15/19 09:50 Hydroxyzine HCl (Vistaril) 50 mg PO HSZ PRN PRN Reason: Insomnia Stop: 12/14/19 20:43 Hydroxyzine HCl (Vistaril) 25 mg PO Q4H PRN PRN Reason: Anxiety Stop: 12/14/19 20:43 Lorazepam (Ativan) 1 mg PO Q8H PRN PRN Reason: Anxiety/irritability Stop: 12/15/19 09:52 Magnesium Hydroxide (Milk Of Magnesia) 30 ml PO DAILY PRN PRN Reason: Constipation Stop: 12/14/19 20:43 Olanzapine (Zyprexa Zydis Od) 10 mg PO HS ADRIANE Stop: 12/20/19 21:59 Last Admin: 11/30/19 22:44 Dose: Not Given Documented by: Olanzapine (Zyprexa) 10 mg IM DAILY PRN PRN Reason: Refusal of PO Olanzapine Stop: 12/20/19 13:44 Last Admin: 11/30/19 22:03 Dose: 10 mg Documented by: Sodium Chloride (Valencia Nasal) 1 - 2 sprays NA PRN PRN PRN Reason: Nasal Dryness/Congestion Stop: 12/14/19 20:43 Last Admin: 11/20/19 23:10 Dose: 2 sprays Documented by: Post Discharge Appointments Primary Care Physician Name Of Family Doctor: [facility] - Dr. Jeffrey Torres Primary Care Provider Appointment Comment: [address] [facility], [address], [place] [address] Other #1: Name of Aftercare Appointment: [facility] Field Sales Agent - Preeti Kelly Phone Number of Aftercare Appointment: [phone] Contact Information Discharge Discharge Address: [address] [place] [address], [address], [place] [address]
--- NOTE | 2019-12-01 11:12 | Communication Note ---
Date of Service: December 01, 2019 304 commitment hearing held and granted. Patient testified that he read his statement at the 303 hearing and "I stand by it," and did not offer any further testimony. [facility].
[2019-12-01] MEDS: OLANZapine 10 MG/2.1 ML SDV IM PRN (21:44)
[2019-12-01] MEDS: OLANZAPINE ZYDIS 10 MG ORALLY DIS. TAB PO SCH (21:56)
--- NOTE | 2019-12-02 08:06 | Psychiatric Progress Note ---
Date of Service December 02, 2019 Impression / Recommendations Impression Primary diagnosis of delusional disorder, persecutory type. Information provided by his indicates that several years ago certain changes in his department at the [facility] triggered a certain amount of distrust by the patient, which gradually grew into the elaborate, highly systematized delusional belief system that is currently in place. His delusional system was likely amplified by his tendency to obsess, focus on patterns, and look for theoretical explanations. This is typical of delusional disorders, as they often begin with a fairly innocuous set of circumstances that, over time, blossom into full- blown, highly systematized delusional beliefs, and the person who suffers from the delusional disorder focuses upon the referenced circumstances, obsesses about them, and, over time, expands the delusional belief system to include explanations for portions of the delusional system that have been challenged by other people, which has been very evident here. Although his behavior on the unit has been free of threats and violence, he is refusing to involve his , who reports fear for her safety given his behavior (violence directed at her prior to admission) and the fact that he has implicated her in his delusional system and believes she is conspiring within [place] government against him. Further, he is uncooperative with treatment, is refusing medication (although not resisting when given intramuscular injections of olanzapine), and declining outpatient treatment. This is a difficult and complex situation. The patient's dyscontrol behavior does not seem to be specific to his , and even were he to leave the hospital without going home to his , the behaviors described by his give reason to predict that he would quickly become a danger to himself or other people in the community. He lacks insight, and expresses a firm belief that he is on a mission to protect and save innocent people. His calm her behavior here is also within the context of his taking psychiatric medications, and he has made it abundantly clear that he will not consider taking any psychiatric medication unless it is forced on him in the hospital. 304 extended involuntarily commitment was granted on 11/30, and subsequent plan is for referral to the [facility] as he remains a danger to himself and others and is refusing to engage in conversation regarding alternative discharge options. (1) Delusional disorder: 11/14 Patient admitted on an involuntary status to the behavioral health unit for continued assessment and treatment as indicated He will be maintained on every 15 minute safety checks We will continue to expand database Consider neuroimaging for w/u of psychosis prn orders for Ativan and Haldol today. I suspect it is likely that he will require medications over objection before he permits any treatment due to what appears to be severely impaired insight. Patient will be reevaluated tomorrow for psychiatric second opinion regarding need for treatment over objection. -presently patient requires continued inpatient hospitalization for workup and treatment of psychosis which was been recently associated with some violent behavior at home. he is at risk of harm to self and others if discharged prematurely. 11/15 -File for 303 involuntary commitment. -Patient is refusing to consider medication, but has haloperidol and Ativan as needed ordered. Would recommend a trial of olanzapine, and agree with medications over objection as he has severe psychotic symptoms which are impairing his ability to function and placing both himself and others at risk of harm due to his violent behavior at home. -Patient is refused to answer questions about whether or not he has guns, so we will need to get this information from his . At this point he is refusing to sign a release for her or anyone else. -Excuse patient from groups due to the severity of his psychosis and violent behavior. Medically necessary private room room due to the same. 11/16 -303 involuntary commitment granted. -Patient continues to refuse to allow his to be involved in treatment. He is now not denying that he was aggressive at home, but is refusing to discuss it, and is focused only on the conspiracy which he says led to his behavior. -Continue to consider medications over objection. At this point, we are attempting to engage the patient in treatment volitionally, and the risk of forcing medications at this time is further alienating him. However, if he is unable to engage in any manner, we will need to reconsider medications over objection. -Patient may attend groups if able to maintain appropriate behavioral control. -Patient has still not been willing to complete admission assessments, and has not been willing to provide certain information. 11/17 -Recommend medications over objection, as the patient is unable to engage in treatment due to the severity of his psychosis and lack of insight, and remains at imminent risk of harm to others, specifically his , if his symptoms remain untreated. He is floridly delusional, now implicating hospital staff in his delusions. He is not able to work as a result of his psychosis, and his is not able to work due to having to supervise him, and is fearful of him given his escalating violence at home. He continues to refuse to allow her to be involved in treatment, is not attending groups, and is refusing to even discuss medication options. Dr. Duarte recommended medications over objection, and I agree, as the patient is unlikely to improve without antipsychotic medication. -Start olanzapine Zydis 5 mg daily, with a 5 mg IM backup for refusal. Order FLP and FG tomorrow for baseline on an atypical antipsychotic. He will also need a medical work-up of psychosis once he is more cooperative, including brain MRI. -Ongoing poor sleep, staff will limit bright lights near his room at night, and if he can be compliant with medication, can move olanzapine to bedtime to assist with sleep. Giving during the day initially to allow for adequate staff in case of need for physical hold or restraint to receive medication. 4/ - Continue olanzapine 5mg daily (offering PO Zydis with IM for refusal) - medications over objection, though patient has been cooperative with his preference for IM administration - Pt offered again PO olanzapine, with the eventual option of converting the medication to HS dosing if he continues to be cooperative - as he reports sedation after receiving the medication - Pt remains delusional and paranoid, unable to discuss examples of how we can assist him during his stay - Maintain MNPR due to level of psychosis - Fasting glucose - wnl at 90; triglycerides elevated at 188, remainder of lipid panel wnl - Continue attempts to coordinate care with patient's 4/ -Patient is continuing to say that he does not wish for us to speak with his , and he again tells us that he will not sign a consent that will allow us to contact her. As above, his assertion is that he does not want us talking to her because she may tell us things that we will include in the record and that will eventually be used against him, either by the government or by [facility]. As a compromise, the patient says that he will ask his to call us and tell us whether she continues to feel that he is a danger to her, himself, or to anyone else. It was explained that we would also need to be able to talk to her about our concerns and we would need to coordinate aftercare arrangements with her. The patient replied to that by saying simply that he would not allow us to say anything about his care or recommended treatment to her at this time. -There seem to be some early indications that the patient may be responding to olanzapine. Today, when I told him that our concerns about his safety had not to do with his behaviors here in the hospital but, instead, about his behaviors at home (in the community) he quickly responded, "yes, but I am getting medication here!" (He almost immediately realized the implication of what he had just said, and he immediately changed the subject and began talking about how various entities were deliberately provoking him into losing his temper and acting in anger. -The patient tells us that he is using the fact that he has been given intramuscular medications against his will as evidence of our being the "dupes" or agents of the entities behind the conspiracy to silence him. He also reiterates that he believes that taking medication voluntarily is tantamount to acknowledging his need for psychiatric treatment, and he tells us that he has absolutely no psychiatric problem at all and does not need any treatment. -Today, we are increasing his olanzapine's as follows. We will begin olanzapine ODT 10 mg at bedtime starting tonight. We have also changed his order for medications over objection to olanzapine 10 mg IM daily for refusal of p.o. olanzapine. -Although the patient's presentation has many of the symptoms of a delusional disorder, persecutory typegiven the elaborate nature of the delusional system, we continue to suspect that what we are seeing is a somewhat atypical jorge, or discrete manic episodes overlaying a underlying delusional disorder. If the explanation for the patient's presentation is symptoms of a manic episode, his prognosis is better. We discussed the possibility of adding an antiobsessional medication which sometimes helps with pure delusional disorders, but the patient says that, absolutely, he will not take any medication that we offer him voluntarily. 11/22--continue Zyprexa IM hs, continues to refuse family meeting with due to paranoia, refuses 2-3 trial of PO Invega to convert to injectable. 11/23--File for 304 hearing d/t ongoing psychosis, lack of insight, refusal for outpatient treatment or ongoing medication, refusal to involve , and high risk for return to violent behavior if home w/ , whom he believes is part of the conspiracy against him. 11/24 - Continue olanzapine IM, continuing to offer patient PO medication which he is consistently refusing - Pt continues to refuse to involve in conversations regarding discharge and safety planning - 304 hearing scheduled for 11/30; pt continues to be psychotic and remains unable to engage in productive safety and discharge planing, therefore remains at high risk of harm to [facility]fl or others if he is discharged home in his current state 11/25 - Titrating olanzapine to 10mg daily; patient continues to refuse offer for PO and is therefore continuing to receive IM injections each evening - 304 hearing 11/30; pt continues to be unwilling to participate in safety and discharge planning efforts 11/26 -The patient tells me that he received olanzapine 10 mg last evening and says that he feels that it has helped him sleep better. However, he notes that his sleep difficulty is related to the fact that his sleep schedule in the hospital is substantially different from the one that he is used to at home, with bedtime here at the hospital being 3 or 4 hours earlier than he is used to. Nevertheless, he says that he believes that he is not having any side effects from olanzapine and that, in the sense that it does help him fall asleep, it helps. Nevertheless, he also repeats today that he will not continue to take any medication, including olanzapine, if he is discharged. -I spoke with the patient's today, without disclosing any protected clinical data regarding the patient. She acknowledges that he frightens her, and, particularly recently, has caused her to fear for her personal physical safety. At the same time, she says tells me that she thinks that if she gets some advice about how best to "handle somebody who is delusional" possibly by getting into individual therapy, herself, she may be able to take him home. She also reports that should he be released (she is aware of upcoming hearing) that she will agree to take him home, because she loves him and wants to protect him, but continues to fear that he may again lose control of his behavior as a function of his delusions. -Today, the patient tells me that he recognizes that in his upcoming hearing on 11/30 (304) the issue may boil down to whether he can assure that he will be safe in the community and will not represent a risk to anyone else, even if he does not take medication. He also says that he recognizes the "Catch-22" that he is in because he realizes that the hospital is likely to say that his behavior in the hospital has been positively influenced by his taking olanzapine, and that without the structure of the hospital and without the medications, he may revert to the dangerous behaviors that precipitated the admission. -Of concern is the fact that the patient's tells us today that, effective yesterday, he has told her that he will no longer speak to her telephonically, and if he is released from the hospital on Saturday he will simply walk home, and if she is not comfortable being home with him she should leave. However, by the end of today he is allowing that he truly believes that his loves him and would not try to harm him if she had any choice, so he is at least considering contacting her again by telephone. 11/27 -Patient informed of 304 hearing and plan to refer to the [facility], as well as additional labs needed for that referral. -He continues to refuse a family meeting with his , who has expressed ongoing concern for her safety. He continues to refuse p.o. medication, outpatient treatment, and discussion of his aggression at home or plans to mitigate it. He remains at risk of harm to others, particularly his , and if discharged prematurely, as she is implicated in his delusion and he believes she has part of the conspiracy against him. -Encourage the patient to attend groups and focus on his own emotional reaction to his perception of events, healthy coping skills, and a discharge safety plan; all of which thus far he has been unwilling to do. 11/28 - 11/29 -Patient refused PPD, EKG, and chest x-ray for [facility] hospital referral. He is refusing to consider a trial of Invega/MERCADO, and continues to refuse a family meeting. -304 involuntary commitment hearing scheduled for 12/01/2019, and will then pursue referral to the [facility]. 11/30 - 304 involuntary commitment granted today, referral to the [facility] is reportedly supported by the [facility] at this time - Pt was again offered PPD, EKG and CXR for [facility] referral, which he again declined - Although he is not overtly refusing medication changes, he does verbalize desire to give olanzapine "another week" before switching to another agent. 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 He remains delusional and without insight, refusing medication (although getting the IM of Zyprexa daily), a family meeting, or discharge planning/outpatient care. -Recommend referral to [facility] for long-term inpatient treatment, will simultaneously referring for a BCM and working on potential diversion plans. Risk Factors Assessment Male: Yes : Yes Do You Have Access To A Gun?: No ( denies that they have any guns at home) Health Problems: No Mental Health Diagnoses: Yes Substance Use Disorders: No Previous Attempt: No Previous Psychiatric Hospitalization: No Hopelessness: No Smoker: No Protective Factors Assessment : Yes Responsible for Young Children: No Employed: No Stable Relationships: No ( is supportive, but fearful of him due to his violence towards her.) Good Rapport with Provider: No (No outpatient providers.) Interval History Identifying Information SAL MAGANA is a 59-year-old M admitted on 11/14/19 19:58 on a 302 involuntary commitment for paranoia and violence at home, on a 304 extended involuntary commitment as of 11/30. Chief Complaint " Nothing really actually". Review of Systems Sleep Information Total Hours of Sleep: 7 Sleep Comments: pt on q-15 minute checks Meal Information Percent Meal Consumed - Breakfast: 100 Percent Meal Consumed - Lunch: 100 Percent Meal Consumed - Dinner: 100 Nutrition Comment: per meal record Subjective Subjective Patient was seen & assessed and interval progress reviewed with treatment team. Staff report he refused the CXR, EKG and PPD for [facility] referral. He is refusing all groups, spends all day sitting at a table working on math problems. He continues to refuse a family meeting or involvement of his . On my assessment today, he states "I don't have anything really to say that I haven't said already." He says the hearing went "as expected," and is concerned that his estate attorney told him he sent the patient 2 separate copies of the letter that he had sent to [employer] at the patient's request, but the patient has not received these letters. He says his told him he received a letter from [employer] at home, and read it to him over the phone, but it did not include a phone number, so he has no way to contact them. He is disappointed that they are not responding to his request to move him out of [place]. He says he spoke with his by phone yesterday, but continues to refuse a family meeting with her. He states he is still having abdominal muscle soreness and dry skin on his forehead which she attributes to medication, and wants to know if his can bring him some facial cream and a calculator. He also asked about being able to go outside to get some fresh air, and about bringing his laptop in, but was understanding of staff's explanations why he could not have the laptop. Continues to refuse oral medication, and is receiving Zyprexa IM daily. Physical Exam Psychiatric Orientation: alert, oriented x 3 and cooperative Apperance: appropriately dressed (Wearing the same clothes since admission) and appropriately groomed Eye Contact: + poor eye contact Looking down at the table Motor Behavior: steady gait and station and no abnormal motor movements Speech: normal rate/rhythm/volume of speech Affect: + blunted affect "The same." Thought Process: + circumstantial thought process (Trails off multiple times, appears to have forgotten what he was talking about.) Thought Content: + delusions, + persecution and + hopelessness Suicidal Thoughts: denies suicidal thoughts Homicidal Thoughts: denies homicidal thoughts Hallucinations: no auditory hallucinations Cognition: recent memory grossly intact and language grossly intact; + attention not intact Estimated Intelligence: + above average estimated intelligence Insight: + severely impaired insight Judgement: + impaired judgement Vital Signs (Past 24 Hours) Last Vital Signs Temp 36.4 C L 12/02/19 06:33 Pulse 72 12/02/19 06:34 Resp 18 12/02/19 06:33 BP 109/70 12/02/19 06:34 Pulse Ox 98 03/28/20 20:15 Results & Data ([facility]) Current Inpatient Medications Current Inpatient Medications: Current Inpatient Medications Acetaminophen (Tylenol) 650 mg PO Q4H PRN PRN Reason: Headache or Minor Fever Stop: 12/14/19 20:43 Al Hydrox/Mg Hydrox/Simethicone (Maalox) 30 ml PO Q4H PRN PRN Reason: GI Upset Stop: 12/14/19 20:43 Bismuth Subsalicylate (Kaopectate) 15 ml PO PRN PRN PRN Reason: Loose Stool Stop: 12/14/19 20:43 Haloperidol (Haldol) 5 mg PO Q8H PRN PRN Reason: agitation/psychosis Stop: 12/15/19 09:59 Haloperidol Lactate (Haldol) 5 mg IM Q8H PRN PRN Reason: for behavioral emergency Stop: 12/15/19 09:50 Hydroxyzine HCl (Vistaril) 50 mg PO HSZ PRN PRN Reason: Insomnia Stop: 12/14/19 20:43 Hydroxyzine HCl (Vistaril) 25 mg PO Q4H PRN PRN Reason: Anxiety Stop: 12/14/19 20:43 Lorazepam (Ativan) 1 mg PO Q8H PRN PRN Reason: Anxiety/irritability Stop: 12/15/19 09:52 Magnesium Hydroxide (Milk Of Magnesia) 30 ml PO DAILY PRN PRN Reason: Constipation Stop: 12/14/19 20:43 Olanzapine (Zyprexa Zydis Od) 10 mg PO HS ADRIANE Stop: 12/20/19 21:59 Last Admin: 12/01/19 21:56 Dose: Not Given Documented by: Olanzapine (Zyprexa) 10 mg IM DAILY PRN PRN Reason: Refusal of PO Olanzapine Stop: 12/20/19 13:44 Last Admin: 12/01/19 21:44 Dose: 10 mg Documented by: Sodium Chloride ([place] Nasal) 1 - 2 sprays NA PRN PRN PRN Reason: Nasal Dryness/Congestion Stop: 12/14/19 20:43 Last Admin: 11/20/19 23:10 Dose: 2 sprays Documented by: Post Discharge Appointments Primary Care Physician Name Of Family Doctor: [facility] - Dr. Jeffrey Torres Primary Care Provider Appointment Comment: [address], [address], [place] [address] Contact Information Discharge Discharge Address: [address], [address], [place] [address]
[2019-12-02] MEDS: OLANZAPINE ZYDIS 10 MG ORALLY DIS. TAB PO SCH (21:36)
[2019-12-02] MEDS: OLANZapine 10 MG/2.1 ML SDV IM PRN (21:42)
--- NOTE | 2019-12-03 10:59 | Psychiatric Progress Note ---
Date of Service December 03, 2019 Impression / Recommendations Impression Primary diagnosis of delusional disorder, persecutory type. Information provided by his indicates that several years ago certain changes in his department at the [facility] triggered a certain amount of distrust by the patient, which gradually grew into the elaborate, highly systematized delusional belief system that is currently in place. His delusional system was likely amplified by his tendency to obsess, focus on patterns, and look for theoretical explanations. This is typical of delusional disorders, as they often begin with a fairly innocuous set of circumstances that, over time, blossom into full- blown, highly systematized delusional beliefs, and the person who suffers from the delusional disorder focuses upon the referenced circumstances, obsesses about them, and, over time, expands the delusional belief system to include explanations for portions of the delusional system that have been challenged by other people, which has been very evident here. Although his behavior on the unit has been free of threats and violence, he is refusing to involve his , who reports fear for her safety given his behavior (violence directed at her prior to admission) and the fact that he has implicated her in his delusional system and believes she is conspiring within [place] government against him. Further, he is uncooperative with treatment, is refusing medication (although not resisting when given intramuscular injections of olanzapine), and declining outpatient treatment. This is a difficult and complex situation. The patient's dyscontrol behavior does not seem to be specific to his , and even were he to leave the hospital without going home to his , the behaviors described by his give reason to predict that he would quickly become a danger to himself or other people in the community. He lacks insight, and expresses a firm belief that he is on a mission to protect and save innocent people. His calm her behavior here is also within the context of his taking psychiatric medications, and he has made it abundantly clear that he will not consider taking any psychiatric medication unless it is forced on him in the hospital. 304 extended involuntarily commitment was granted on 11/30, and subsequent plan is for referral to the [facility] as he remains a danger to himself and others and is refusing to engage in conversation regarding alternative discharge options. (1) Delusional disorder: 11/14 Patient admitted on an involuntary status to the behavioral health unit for continued assessment and treatment as indicated He will be maintained on every 15 minute safety checks We will continue to expand database Consider neuroimaging for w/u of psychosis prn orders for Ativan and Haldol today. I suspect it is likely that he will require medications over objection before he permits any treatment due to what appears to be severely impaired insight. Patient will be reevaluated tomorrow for psychiatric second opinion regarding need for treatment over objection. -presently patient requires continued inpatient hospitalization for workup and treatment of psychosis which was been recently associated with some violent behavior at home. he is at risk of harm to self and others if discharged prematurely. 11/15 -File for 303 involuntary commitment. -Patient is refusing to consider medication, but has haloperidol and Ativan as needed ordered. Would recommend a trial of olanzapine, and agree with medications over objection as he has severe psychotic symptoms which are impairing his ability to function and placing both himself and others at risk of harm due to his violent behavior at home. -Patient is refused to answer questions about whether or not he has guns, so we will need to get this information from his . At this point he is refusing to sign a release for her or anyone else. -Excuse patient from groups due to the severity of his psychosis and violent behavior. Medically necessary private room room due to the same. 11/16 -303 involuntary commitment granted. -Patient continues to refuse to allow his to be involved in treatment. He is now not denying that he was aggressive at home, but is refusing to discuss it, and is focused only on the conspiracy which he says led to his behavior. -Continue to consider medications over objection. At this point, we are attempting to engage the patient in treatment volitionally, and the risk of forcing medications at this time is further alienating him. However, if he is unable to engage in any manner, we will need to reconsider medications over objection. -Patient may attend groups if able to maintain appropriate behavioral control. -Patient has still not been willing to complete admission assessments, and has not been willing to provide certain information. 11/17 -Recommend medications over objection, as the patient is unable to engage in treatment due to the severity of his psychosis and lack of insight, and remains at imminent risk of harm to others, specifically his , if his symptoms remain untreated. He is floridly delusional, now implicating hospital staff in his delusions. He is not able to work as a result of his psychosis, and his is not able to work due to having to supervise him, and is fearful of him given his escalating violence at home. He continues to refuse to allow her to be involved in treatment, is not attending groups, and is refusing to even discuss medication options. Dr. Duarte recommended medications over objection, and I agree, as the patient is unlikely to improve without antipsychotic medication. -Start olanzapine Zydis 5 mg daily, with a 5 mg IM backup for refusal. Order FLP and FG tomorrow for baseline on an atypical antipsychotic. He will also need a medical work-up of psychosis once he is more cooperative, including brain MRI. -Ongoing poor sleep, staff will limit bright lights near his room at night, and if he can be compliant with medication, can move olanzapine to bedtime to assist with sleep. Giving during the day initially to allow for adequate staff in case of need for physical hold or restraint to receive medication. 4/ - Continue olanzapine 5mg daily (offering PO Zydis with IM for refusal) - medications over objection, though patient has been cooperative with his preference for IM administration - Pt offered again PO olanzapine, with the eventual option of converting the medication to HS dosing if he continues to be cooperative - as he reports sedation after receiving the medication - Pt remains delusional and paranoid, unable to discuss examples of how we can assist him during his stay - Maintain MNPR due to level of psychosis - Fasting glucose - wnl at 90; triglycerides elevated at 188, remainder of lipid panel wnl - Continue attempts to coordinate care with patient's 4/ -Patient is continuing to say that he does not wish for us to speak with his , and he again tells us that he will not sign a consent that will allow us to contact her. As above, his assertion is that he does not want us talking to her because she may tell us things that we will include in the record and that will eventually be used against him, either by the government or by [facility]. As a compromise, the patient says that he will ask his to call us and tell us whether she continues to feel that he is a danger to her, himself, or to anyone else. It was explained that we would also need to be able to talk to her about our concerns and we would need to coordinate aftercare arrangements with her. The patient replied to that by saying simply that he would not allow us to say anything about his care or recommended treatment to her at this time. -There seem to be some early indications that the patient may be responding to olanzapine. Today, when I told him that our concerns about his safety had not to do with his behaviors here in the hospital but, instead, about his behaviors at home (in the community) he quickly responded, "yes, but I am getting medication here!" (He almost immediately realized the implication of what he had just said, and he immediately changed the subject and began talking about how various entities were deliberately provoking him into losing his temper and acting in anger. -The patient tells us that he is using the fact that he has been given intramuscular medications against his will as evidence of our being the "dupes" or agents of the entities behind the conspiracy to silence him. He also reiterates that he believes that taking medication voluntarily is tantamount to acknowledging his need for psychiatric treatment, and he tells us that he has absolutely no psychiatric problem at all and does not need any treatment. -Today, we are increasing his olanzapine's as follows. We will begin olanzapine ODT 10 mg at bedtime starting tonight. We have also changed his order for medications over objection to olanzapine 10 mg IM daily for refusal of p.o. olanzapine. -Although the patient's presentation has many of the symptoms of a delusional disorder, persecutory typegiven the elaborate nature of the delusional system, we continue to suspect that what we are seeing is a somewhat atypical jorge, or discrete manic episodes overlaying a underlying delusional disorder. If the explanation for the patient's presentation is symptoms of a manic episode, his prognosis is better. We discussed the possibility of adding an antiobsessional medication which sometimes helps with pure delusional disorders, but the patient says that, absolutely, he will not take any medication that we offer him voluntarily. 11/22--continue Zyprexa IM hs, continues to refuse family meeting with due to paranoia, refuses 2-3 trial of PO Invega to convert to injectable. 11/23--File for 304 hearing d/t ongoing psychosis, lack of insight, refusal for outpatient treatment or ongoing medication, refusal to involve , and high risk for return to violent behavior if home w/ , whom he believes is part of the conspiracy against him. 11/24 - Continue olanzapine IM, continuing to offer patient PO medication which he is consistently refusing - Pt continues to refuse to involve in conversations regarding discharge and safety planning - 304 hearing scheduled for 11/30; pt continues to be psychotic and remains unable to engage in productive safety and discharge planing, therefore remains at high risk of harm to sefl or others if he is discharged home in his current state 11/25 - Titrating olanzapine to 10mg daily; patient continues to refuse offer for PO and is therefore continuing to receive IM injections each evening - 304 hearing 11/30; pt continues to be unwilling to participate in safety and discharge planning efforts 11/26 -The patient tells me that he received olanzapine 10 mg last evening and says that he feels that it has helped him sleep better. However, he notes that his sleep difficulty is related to the fact that his sleep schedule in the hospital is substantially different from the one that he is used to at home, with bedtime here at the hospital being 3 or 4 hours earlier than he is used to. Nevertheless, he says that he believes that he is not having any side effects from olanzapine and that, in the sense that it does help him fall asleep, it helps. Nevertheless, he also repeats today that he will not continue to take any medication, including olanzapine, if he is discharged. -I spoke with the patient's today, without disclosing any protected clinical data regarding the patient. She acknowledges that he frightens her, and, particularly recently, has caused her to fear for her personal physical safety. At the same time, she says tells me that she thinks that if she gets some advice about how best to "handle somebody who is delusional" possibly by getting into individual therapy, herself, she may be able to take him home. She also reports that should he be released (she is aware of upcoming hearing) that she will agree to take him home, because she loves him and wants to protect him, but continues to fear that he may again lose control of his behavior as a function of his delusions. -Today, the patient tells me that he recognizes that in his upcoming hearing on 11/30 (304) the issue may boil down to whether he can assure that he will be safe in the community and will not represent a risk to anyone else, even if he does not take medication. He also says that he recognizes the "Catch-22" that he is in because he realizes that the hospital is likely to say that his behavior in the hospital has been positively influenced by his taking olanzapine, and that without the structure of the hospital and without the medications, he may revert to the dangerous behaviors that precipitated the admission. -Of concern is the fact that the patient's tells us today that, effective yesterday, he has told her that he will no longer speak to her telephonically, and if he is released from the hospital on Saturday he will simply walk home, and if she is not comfortable being home with him she should leave. However, by the end of today he is allowing that he truly believes that his loves him and would not try to harm him if she had any choice, so he is at least considering contacting her again by telephone. 11/27 -Patient informed of 304 hearing and plan to refer to the [facility], as well as additional labs needed for that referral. -He continues to refuse a family meeting with his , who has expressed ongoing concern for her safety. He continues to refuse p.o. medication, outpatient treatment, and discussion of his aggression at home or plans to mitigate it. He remains at risk of harm to others, particularly his , and if discharged prematurely, as she is implicated in his delusion and he believes she has part of the conspiracy against him. -Encourage the patient to attend groups and focus on his own emotional reaction to his perception of events, healthy coping skills, and a discharge safety plan; all of which thus far he has been unwilling to do. 11/28 - 11/29 -Patient refused PPD, EKG, and chest x-ray for [facility] referral. He is refusing to consider a trial of Invega/MERCADO, and continues to refuse a family meeting. -304 involuntary commitment hearing scheduled for 12/01/2019, and will then pursue referral to the [facility]. 11/30 - 304 involuntary commitment granted today, referral to the [facility] is reportedly supported by the [facility] at this time - Pt was again offered PPD, EKG and CXR for [facility] referral, which he again declined - Although he is not overtly refusing medication changes, he does verbalize desire to give olanzapine "another week" before switching to another agent. 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 He remains delusional and without insight, refusing medication (although getting the IM of Zyprexa daily), a family meeting, or discharge planning/outpatient care. -Recommend referral to [facility] for long-term inpatient treatment, will simultaneously referring for a BCM and working on potential diversion plans. 12/02 - Continue IM olanzapine - as continues to refuse oral medications or discussion regarding alternative agents - Most documentation sent to [facility] for referral - awaiting 303 and 304 findings to be sent and will then fax these as well - Pt continues to decline medical tests generally requested as part of [facility] referral, but cannot force these studies to be done Risk Factors Assessment Male: Yes : Yes Do You Have Access To A Gun?: No ( denies that they have any guns at home) Health Problems: No Mental Health Diagnoses: Yes Substance Use Disorders: No Previous Attempt: No Previous Psychiatric Hospitalization: No Hopelessness: No Smoker: No Protective Factors Assessment : Yes Responsible for Young Children: No Employed: No Stable Relationships: No ( is supportive, but fearful of him due to his violence towards her.) Good Rapport with Provider: No (No outpatient providers.) Interval History Identifying Information SAL MAGANA is a 59-year-old M admitted on 11/14/19 19:58 on a 302 involuntary commitment for paranoia and violence at home, on a 304 extended involuntary commitment as of 11/30. Chief Complaint "Oh, I'm doing alright. Thanks for asking. How are you?" Review of Systems Notes Constitutional: denied Cardiovascular: denied Respiratory: denied Gastrointestinal: denied Musculoskeletal: reports left rib/abdominal muscle soreness Neurological: denied Psychiatric: denies symptoms other than stated above Total of at least 10 systems reviewed, pertinent positives as above and in HPI. Sleep Information Total Hours of Sleep: 5.25 Sleep Comments: pt JOYCE @0515 and thereafter. pt in dayarea writing on his pad. pt polite and smiling upon interaction. pt on q-15 minute checks Meal Information Percent Meal Consumed - Breakfast: 100 Percent Meal Consumed - Lunch: 100 Percent Meal Consumed - Dinner: 100 Nutrition Comment: per meal record Subjective Subjective Patient was seen & assessed and interval progress reviewed with nursing and social work. Staff report the patient has continued to refuse recommendations regarding possible discharge plans. Pt continues to complete math equations and demonstrates limited engagement in treatment. Lena referral has been initiated, awaiting 303 and 304 findings from the [facility]. Pt was seen today to assess progress since admission. Pt states he is "doing alright." Pt engages in superficially polite conversation, often cutting this provider off when this PA is attempting to ask more in-depth questions. Pt states he continues to speak to his daily, but does not offer any additional details from these calls. Pt denies any needs presently. Sleep and appetite are maintained without reported concerns. Pt states that he has been adjusting to the olanzapine, only reported concern being "some soreness in my ribs and abdomen when I work out" - denies that his is concerning to him and admits it has been improving. Pt maintains that he does not wish to discuss any medication adjustments at this time. He denies other needs or concerns presently. He politely, but abruptly ends our conversation and dismisses this provider. Physical Exam Psychiatric Orientation: alert, oriented x 3 and + guarded (only superficially cooperative ) Apperance: appropriately dressed (casually, but wearing same clothes for several days) and appropriately groomed (hygiene adequate, long skinner hair is occasionally unkempt) Eye Contact: + fair eye contact (distracted with math equations, looking up at this provider intermittently ) Motor Behavior: no abnormal motor movements (observed while sitting at table in day area ) Speech: normal rate/rhythm/volume of speech (polite tone) Affect: + blunted affect Mood: no depressed mood ("I'm fine") Thought Content: + preoccupation, + paranoid, + delusions and + persecution Ongoing, limited willingness to discuss in detail today Suicidal Thoughts: denies suicidal thoughts Homicidal Thoughts: denies homicidal thoughts Hallucinations: no auditory hallucinations and no visual hallucinations Cognition: attention grossly intact and language grossly intact Estimated Intelligence: consistent with education level Insight: + severely impaired insight Judgement: + poor judgement Vital Signs (Past 24 Hours) Last Vital Signs Temp 36.4 C L 12/03/19 06:35 Pulse 70 12/03/19 06:37 Resp 18 12/03/19 06:35 BP 117/83 12/03/19 06:37 Pulse Ox 98 11/14/19 20:15 Results & Data ([facility]) Current Inpatient Medications Current Inpatient Medications: Current Inpatient Medications Acetaminophen (Tylenol) 650 mg PO Q4H PRN PRN Reason: Headache or Minor Fever Stop: 12/14/19 20:43 Al Hydrox/Mg Hydrox/Simethicone (Maalox) 30 ml PO Q4H PRN PRN Reason: GI Upset Stop: 12/14/19 20:43 Bismuth Subsalicylate (Kaopectate) 15 ml PO PRN PRN PRN Reason: Loose Stool Stop: 12/14/19 20:43 Haloperidol (Haldol) 5 mg PO Q8H PRN PRN Reason: agitation/psychosis Stop: 12/15/19 09:59 Haloperidol Lactate (Haldol) 5 mg IM Q8H PRN PRN Reason: for behavioral emergency Stop: 12/15/19 09:50 Hydroxyzine HCl (Vistaril) 50 mg PO HSZ PRN PRN Reason: Insomnia Stop: 12/14/19 20:43 Hydroxyzine HCl (Vistaril) 25 mg PO Q4H PRN PRN Reason: Anxiety Stop: 12/14/19 20:43 Lorazepam (Ativan) 1 mg PO Q8H PRN PRN Reason: Anxiety/irritability Stop: 12/15/19 09:52 Magnesium Hydroxide (Milk Of Magnesia) 30 ml PO DAILY PRN PRN Reason: Constipation Stop: 12/14/19 20:43 Olanzapine (Zyprexa Zydis Od) 10 mg PO HS ADRIANE Stop: 12/20/19 21:59 Last Admin: 12/02/19 21:36 Dose: Not Given Documented by: Olanzapine (Zyprexa) 10 mg IM DAILY PRN PRN Reason: Refusal of PO Olanzapine Stop: 12/20/19 13:44 Last Admin: 12/02/19 21:42 Dose: 10 mg Documented by: Sodium Chloride (Cavalier Nasal) 1 - 2 sprays NA PRN PRN PRN Reason: Nasal Dryness/Congestion Stop: 12/14/19 20:43 Last Admin: 11/20/19 23:10 Dose: 2 sprays Documented by: Post Discharge Appointments Primary Care Physician Name Of Family Doctor: [facility] [facility] - Dr. Jeffrey Torres Primary Care Provider Appointment Comment: [id number], [address], [place] [address] Other #1: Name of Aftercare Appointment: [facility] [employer] - Preeti Kelly Phone Number of Aftercare Appointment: [phone] Contact Information Discharge Discharge Address: [address] [place] [address], [address], [place] [address]
[2019-12-03] MEDS: OLANZapine 10 MG/2.1 ML SDV IM PRN (21:45)
[2019-12-03] MEDS: OLANZAPINE ZYDIS 10 MG ORALLY DIS. TAB PO SCH (22:27)
--- NOTE | 2019-12-04 16:46 | Psychiatric Progress Note ---
Date of Service December 04, 2019 Impression / Recommendations Impression Primary diagnosis of delusional disorder, persecutory type. Information provided by his indicates that several years ago certain changes in his department at the [facility] triggered a certain amount of distrust by the patient, which gradually grew into the elaborate, highly systematized delusional belief system that is currently in place. His delusional system was likely amplified by his tendency to obsess, focus on patterns, and look for theoretical explanations. This is typical of delusional disorders, as they often begin with a fairly innocuous set of circumstances that, over time, blossom into full- blown, highly systematized delusional beliefs, and the person who suffers from the delusional disorder focuses upon the referenced circumstances, obsesses about them, and, over time, expands the delusional belief system to include explanations for portions of the delusional system that have been challenged by other people, which has been very evident here. Although his behavior on the unit has been free of threats and violence, he is refusing to involve his , who reports fear for her safety given his behavior (violence directed at her prior to admission) and the fact that he has implicated her in his delusional system and believes she is conspiring within [place] government against him. Further, he is uncooperative with treatment, is refusing medication (although not resisting when given intramuscular injections of olanzapine), and declining outpatient treatment. This is a difficult and complex situation. The patient's dyscontrol behavior does not seem to be specific to his , and even were he to leave the hospital without going home to his , the behaviors described by his give reason to predict that he would quickly become a danger to himself or other people in the community. He lacks insight, and expresses a firm belief that he is on a mission to protect and save innocent people. His calm her behavior here is also within the context of his taking psychiatric medications, and he has made it abundantly clear that he will not consider taking any psychiatric medication unless it is forced on him in the hospital. 304 extended involuntarily commitment was granted on 11/30, and [facility] he remains a danger to himself and others and is refusing to engage in conversation regarding alternative discharge options. As of 12/04/2019 the patient continues to harbor his highly systematized and fixed delusional beliefs that he is willing to say involves a "vast conspiracy" involving multiple "very powerful" individuals who are conspiring to cover up multiple agree just human rights violations and related crimes that date back many many years. His belief is that these entities are aware that he has uncov ered proof of their crimes and that they are currently conspiring to "neutralize" him by confining him to a psychiatric facility, having him declared insane, and causing his to at least claim that she is afraid of him. However, he is at least willing to consider that his steadfast refusal to cooperate with any aftercare planning for outpatient treatment at this point is sabotaging the opportunity for him to be able to leave and place himself in a situation where he can complete and published his "expose" of the above referenced "vast conspiracy." He does not acknowledge that he has a mental illness, but he also has not engaged in any dangerous or otherwise uncontrolled behaviors in the hospital and at this point he seems to be looking at ways that he can be safely released, assuage of the safety concerns of other people, and, thereby, be allowed to complete his project. [facility] given his recalcitrance, and he has been provided a lot of details about long-term psychiatric hospitalization state facility. He had previously said that he would simply allow people to do what they wanted to do because "fighting would do no good," and that he would simply go with the flow. However, as of 12/04/2019 he is willing to consider alternatives to "simply going with the flow," but none of these considered alternatives involve any form of psychiatric treatment on an outpatient basis. (1) Delusional disorder: 11/14 Patient admitted on an involuntary status to the behavioral health unit for continued assessment and treatment as indicated He will be maintained on every 15 minute safety checks We will continue to expand database Consider neuroimaging for w/u of psychosis prn orders for Ativan and Haldol today. I suspect it is likely that he will require medications over objection before he permits any treatment due to what appears to be severely impaired insight. Patient will be reevaluated tomorrow for psychiatric second opinion regarding need for treatment over objection. -presently patient requires continued inpatient hospitalization for workup and treatment of psychosis which was been recently associated with some violent behavior at home. he is at risk of harm to self and others if discharged prematurely. 11/15 -File for 303 involuntary commitment. -Patient is refusing to consider medication, but has haloperidol and Ativan as needed ordered. Would recommend a trial of olanzapine, and agree with medications over objection as he has severe psychotic symptoms which are impairing his ability to function and placing both himself and others at risk of harm due to his violent behavior at home. -Patient is refused to answer questions about whether or not he has guns, so we will need to get this information from his . At this point he is refusing to sign a release for her or anyone else. -Excuse patient from groups due to the severity of his psychosis and violent behavior. Medically necessary private room room due to the same. 11/16 -303 involuntary commitment granted. -Patient continues to refuse to allow his to be involved in treatment. He is now not denying that he was aggressive at home, but is refusing to discuss it, and is focused only on the conspiracy which he says led to his behavior. -Continue to consider medications over objection. At this point, we are attempting to engage the patient in treatment volitionally, and the risk of forcing medications at this time is further alienating him. However, if he is unable to engage in any manner, we will need to reconsider medications over objection. -Patient may attend groups if able to maintain appropriate behavioral control. -Patient has still not been willing to complete admission assessments, and has not been willing to provide certain information. 11/17 -Recommend medications over objection, as the patient is unable to engage in treatment due to the severity of his psychosis and lack of insight, and remains at imminent risk of harm to others, specifically his , if his symptoms remain untreated. He is floridly delusional, now implicating hospital staff in his delusions. He is not able to work as a result of his psychosis, and his is not able to work due to having to supervise him, and is fearful of him given his escalating violence at home. He continues to refuse to allow her to be involved in treatment, is not attending groups, and is refusing to even discuss medication options. Dr. Duarte recommended medications over objection, and I agree, as the patient is unlikely to improve without antipsychotic medication. -Start olanzapine Zydis 5 mg daily, with a 5 mg IM backup for refusal. Order FLP and FG tomorrow for baseline on an atypical antipsychotic. He will also need a medical work-up of psychosis once he is more cooperative, including brain MRI. -Ongoing poor sleep, staff will limit bright lights near his room at night, and if he can be compliant with medication, can move olanzapine to bedtime to assist with sleep. Giving during the day initially to allow for adequate staff in case of need for physical hold or restraint to receive medication. / - Continue olanzapine 5mg daily (offering PO Zydis with IM for refusal) - medications over objection, though patient has been cooperative with his preference for IM administration - Pt offered again PO olanzapine, with the eventual option of converting the medication to HS dosing if he continues to be cooperative - as he reports sedation after receiving the medication - Pt remains delusional and paranoid, unable to discuss examples of how we can assist him during his stay - Maintain MNPR due to level of psychosis - Fasting glucose - wnl at 90; triglycerides elevated at 188, remainder of lipid panel wnl - Continue attempts to coordinate care with patient's 11/19 -Patient is continuing to say that he does not wish for us to speak with his , and he again tells us that he will not sign a consent that will allow us to contact her. As above, his assertion is that he does not want us talking to her because she may tell us things that we will include in the record and that will eventually be used against him, either by the government or by [facility]. As a compromise, the patient says that he will ask his to call us and tell us whether she continues to feel that he is a danger to her, himself, or to anyone else. It was explained that we would also need to be able to talk to her about our concerns and we would need to coordinate aftercare arrangements with her. The patient replied to that by saying simply that he would not allow us to say anything about his care or recommended treatment to her at this time. -There seem to be some early indications that the patient may be responding to olanzapine. Today, when I told him that our concerns about his safety had not to do with his behaviors here in the hospital but, instead, about his behaviors at home (in the community) he quickly responded, "yes, but I am getting medication here!" (He almost immediately realized the implication of what he had just said, and he immediately changed the subject and began talking about how various entities were deliberately provoking him into losing his temper and acting in anger. -The patient tells us that he is using the fact that he has been given intramuscular medications against his will as evidence of our being the "dupes" or agents of the entities behind the conspiracy to silence him. He also reiterates that he believes that taking medication voluntarily is tantamount to acknowledging his need for psychiatric treatment, and he tells us that he has absolutely no psychiatric problem at all and does not need any treatment. -Today, we are increasing his olanzapine's as follows. We will begin olanzapine ODT 10 mg at bedtime starting tonight. We have also changed his order for medications over objection to olanzapine 10 mg IM daily for refusal of p.o. olanzapine. -Although the patient's presentation has many of the symptoms of a delusional disorder, persecutory typegiven the elaborate nature of the delusional system, we continue to suspect that what we are seeing is a somewhat atypical jorge, or discrete manic episodes overlaying a underlying delusional disorder. If the explanation for the patient's presentation is symptoms of a manic episode, his prognosis is better. We discussed the possibility of adding an antiobsessional medication which sometimes helps with pure delusional disorders, but the patient says that, absolutely, he will not take any medication that we offer him voluntarily. 11/22--continue Zyprexa IM hs, continues to refuse family meeting with due to paranoia, refuses 2-3 trial of PO Invega to convert to injectable. 11/23--File for 304 hearing d/t ongoing psychosis, lack of insight, refusal for ou tpatient treatment or ongoing medication, refusal to involve , and high risk for return to violent behavior if home w/ , whom he believes is part of the conspiracy against him. 11/24 - Continue olanzapine IM, continuing to offer patient PO medication which he is consistently refusing - Pt continues to refuse to involve in conversations regarding discharge and safety planning - 304 hearing scheduled for 11/30; pt continues to be psychotic and remains unable to engage in productive safety and discharge planing, therefore remains at high risk of harm to sefl or others if he is discharged home in his current state 11/25 - Titrating olanzapine to 10mg daily; patient continues to refuse offer for PO and is therefore continuing to receive IM injections each evening - 304 hearing 11/30; pt continues to be unwilling to participate in safety and discharge planning efforts 11/26 -The patient tells me that he received olanzapine 10 mg last evening and says that he feels that it has helped him sleep better. However, he notes that his sleep difficulty is related to the fact that his sleep schedule in the hospital is substantially different from the one that he is used to at home, with bedtime here at the hospital being 3 or 4 hours earlier than he is used to. Nevertheless, he says that he believes that he is not having any side effects from olanzapine and that, in the sense that it does help him fall asleep, it helps. Nevertheless, he also repeats today that he will not continue to take any medication, including olanzapine, if he is discharged. -I spoke with the patient's today, without disclosing any protected clinical data regarding the patient. She acknowledges that he frightens her, and, particularly recently, has caused her to fear for her personal physical safety. At the same time, she says tells me that she thinks that if she gets some advice about how best to "handle somebody who is delusional" possibly by getting into individual therapy, herself, she may be able to take him home. She also reports that should he be released (she is aware of upcoming hearing) that she will agree to take him home, because she loves him and wants to protect him, but continues to fear that he may again lose control of his behavior as a function of his delusions. -Today, the patient tells me that he recognizes that in his upcoming hearing on 11/30 (304) the issue may boil down to whether he can assure that he will be safe in the community and will not represent a risk to anyone else, even if he does not take medication. He also says that he recognizes the "Catch-22" that he is in because he realizes that the hospital is likely to say that his behavior in the hospital has been positively influenced by his taking olanzapine, and that without the structure of the hospital and without the medications, he may revert to the dangerous behaviors that precipitated the admission. -Of concern is the fact that the patient's tells us today that, effecti ve yesterday, he has told her that he will no longer speak to her telephonically, and if he is released from the hospital on Saturday he will simply walk home, and if she is not comfortable being home with him she should leave. However, by the end of today he is allowing that he truly believes that his loves him and would not try to harm him if she had any choice, so he is at least considering contacting her again by telephone. 11/27 -Patient informed of 304 hearing and plan [facility], as well as additional labs needed for that referral. -He continues to refuse a family meeting with his , who has expressed ongoing concern for her safety. He continues to refuse p.o. medication, outpatient treatment, and discussion of his aggression at home or plans to mitigate it. He remains at risk of harm to others, particularly his , and if discharged prematurely, as she is implicated in his delusion and he believes she has part of the conspiracy against him. -Encourage the patient to attend groups and focus on his own emotional reaction to his perception of events, healthy coping skills, and a discharge safety plan; all of which thus far he has been unwilling to do. 11/28 - 11/29 -Patient refused PPD, EKG, and chest x-ray for [facility]. He is refusing to consider a trial of Invega/MERCADO, and continues to refuse a family meeting. -304 involuntary commitment hearing scheduled for 12/01/2019, and will then [facility]. 11/30 - 304 involuntary commitment granted today, [facility] is [facility] by the [facility] at this time - Pt was again offered PPD, EKG and CXR for [facility], which he again declined - Although he is not overtly refusing medication changes, he does verbalize desire to give olanzapine "another week" before switching to another agent. 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 He remains delusional and without insight, refusing medication (although getting the IM of Zyprexa daily), a family meeting, or discharge planning/outpatient care. -Recommend referral to [facility] for long-term inpatient treatment, will simultaneously referring for a BCM and working on potential diversion plans. 12/02 - Continue IM olanzapine - as continues to refuse oral medications or discussion regarding alternative agents - Most documentation sent to [facility] for referral - awaiting 303 and 304 findings to be sent and will then fax these as well - Pt continues to decline medical tests generally requested as part of [facility] referral, but cannot force these studies to be done 12/03 -We will increase his dose of IM olanzapine to 12.5 mg at bedtime. The medication thus far does not seem to have had much of a favorable impact on the patient's delusional belief system, and he is not willing to consider antiobsessional medications in the form of a selective serotonin reuptake inhibitor. However, the patient is now sleeping better and his general demeanor has been more calm, more pleasant, and more self-possessed. -The patient reports that he does not feel that he is experiencing any side effects from olanzapine, but fall short of saying that it is helping him in any way, other than perhaps for sleep. He mentions that he sometimes has a pain in his left abdominal wall and lower rib cage that he says he does not feel as a side effect from medication but, rather, the result of his doing sit ups and his bedroom by placing his feet under the mattress and exercising in that way. Risk Factors Assessment Male: Yes : Yes Do You Have Access To A Gun?: No ( denies that they have any guns at home) Health Problems: No Mental Health Diagnoses: Yes Substance Use Disorders: No Previous Attempt: No Previous Psychiatric Hospitalization: No Hopelessness: No Smoker: No Protective Factors Assessment : Yes Responsible for Young Children: No Employed: No Stable Relationships: No ( is supportive, but fearful of him due to his violence towards her.) Good Rapport with Provider: No (No outpatient providers.) Interval History Identifying Information SAL MAGANA is a 59-year-old M admitted on 11/14/19 19:58 on a 302 involuntary commitment for paranoia and violence at home, on a 304 extended involuntary commitment as of 11/30. Chief Complaint "I'm just waiting this out, and working on my book.". Review of Systems Sleep Information Total Hours of Sleep: 6.5 Sleep Comments: pt on q-15 minute checks Meal Information Percent Meal Consumed - Breakfast: 100 Percent Meal Consumed - Lunch: 100 Percent Meal Consumed - Dinner: 100 Nutrition Comment: per meal record Subjective Subjective Patient was seen & assessed and interval progress reviewed with treatment team. I met with the patient individually in order to assess his current mental status, evaluate his response to treatment, coordinate any necessary changes in his treatment regimen with the patient, and address issues, questions and concerns that may arise. We began talking about his recent to 304 hearing, and he confirmed that he decided to essentially not say anything other than he intends to rest on the information that he provided at his previous involuntary commitment hearing. He asked me if there was a possibility for him to appeal the ruling, and I suggested that he discuss this telephonically with his ssis etl developer but that I felt certain that there would be options, including a formal appeal as well as the option of filing a writ of habius corpus. He was not familiar with that process, and again I suggested that he consider discussing his dissatisfaction with the decision to retain him with his ssis etl developer. The patient continues to talk vaguely about the various crimes against humanity which he has uncovered or is in the process of uncovering. As has been the case up on each occasion that I have interviewed the patient he handles challenges to his delusional beliefs that he apparently cannot answer easily by saying, "it is all extremely complicated. You would not have time for me to explain at all. But it is all going to be in the book," or " I cannot address that question quite yet. I am still doing research and putting all the pieces together." When ask for him to discuss the crimes that he has uncovered to the degree that it is possible for him to discuss them with me, he asserts that he is not disclosing details about what he knows because those disclosures will either be used against him (apparently by the hospital) or they will be used to "tip off" the powerful persons who are seeking to " neutralize him." When I confronted him with the implication that an agent of the hospital, of which I am one, would somehow conspired against him he replied, "I did not say that. You're a nice atul." The patient asked a number of questions [facility], based on my previous experiences as a staff psychiatrist there, and he said that this might be "the best thing" because it would give him the opportunity to have enough privacy and time to complete his book. I pointed out that he would not have Internet access there, but he tells me that he does not feel that he needs to do any more Internet research and, instead, he simply needs to piece together all of the "pieces of the puzzle" that he is already uncovered. He continues to assert that his 's report that she is afraid of him was somehow orchestrated by the powerful persons who are plotting to keep him confined and neutralized. When I asked him how they might do that, he reverted to "these things are extremely complicated and you have no idea how powerful these people really are." I asked him if he felt the need to protect his , and he said he did not believe the protection as possible. Eventually, he said that he has been thinking about it, and if the issue is a concern about his 's safetyeven though he has absolutely no thoughts or intent of causing her harmthen would'nt an option be to see if his would agree to at least temporarily go to their apartment in [place] so that he could be discharged, either to home here in [place] or perhaps to the [facility]. From there, he said that he would like to use his passport to fly to "another continent, may be the [place]," when travel restrictions are over. This desire is evidently based in his delusional belief system because he suggests that "powerful entities" that he believes are attempting to persecute him have much less clout in places such as [place] or [place]. Physical Exam Psychiatric Orientation: alert, oriented x 3 and cooperative Apperance: appropriately dressed, appropriately groomed and appeared stated age Eye Contact: good eye contact Motor Behavior: steady gait and station Speech: normal rate/rhythm/volume of speech Affect: euthymic affect "I'm fine." Thought Process: goal directed thought process Thought Content: + delusions (The patient continues to have a highly systematized, elaborate belief system that he is reluctant to disclose in detail, but that involves his belief that he is uncovered a series of human rights violations over the period of many many years.) and + persecution Suicidal Thoughts: denies suicidal thoughts Homicidal Thoughts: denies homicidal thoughts Hallucinations: no auditory hallucinations Cognition: recent memory grossly intact, remote memory grossly intact and attention grossly intact Estimated Intelligence: + above average estimated intelligence Insight: + severely impaired insight Judgement: + poor judgement His judgment is assessed as poor within the context of the degree to which he is allowing his delusions to sabotage his own best interest. However, within the context of the delusional belief system his judgment is not entirely unreasonable. Vital Signs (Past 24 Hours) Last Vital Signs Temp 36.7 C 12/04/19 06:49 Pulse 67 12/04/19 06:49 Resp 18 12/04/19 06:49 BP 117/67 12/04/19 06:49 Pulse Ox 98 11/14/19 20:15 Results & Data ([facility]) Current Inpatient Medications Current Inpatient Medications: Current Inpatient Medications Acetaminophen (Tylenol) 650 mg PO Q4H PRN PRN Reason: Headache or Minor Fever Stop: 12/14/19 20:43 Al Hydrox/Mg Hydrox/Simethicone (Maalox) 30 ml PO Q4H PRN PRN Reason: GI Upset Stop: 12/14/19 20:43 Bismuth Subsalicylate (Kaopectate) 15 ml PO PRN PRN PRN Reason: Loose Stool Stop: 12/14/19 20:43 Haloperidol (Haldol) 5 mg PO Q8H PRN PRN Reason: agitation/psychosis Stop: 12/15/19 09:59 Haloperidol Lactate (Haldol) 5 mg IM Q8H PRN PRN Reason: for behavioral emergency Stop: 12/15/19 09:50 Hydroxyzine HCl (Vistaril) 50 mg PO HSZ PRN PRN Reason: Insomnia Stop: 12/14/19 20:43 Hydroxyzine HCl (Vistaril) 25 mg PO Q4H PRN PRN Reason: Anxiety Stop: 12/14/19 20:43 Lorazepam (Ativan) 1 mg PO Q8H PRN PRN Reason: Anxiety/irritability Stop: 12/15/19 09:52 Magnesium Hydroxide (Milk Of Magnesia) 30 ml PO DAILY PRN PRN Reason: Constipation Stop: 12/14/19 20:43 Olanzapine (Zyprexa Zydis Od) 10 mg PO HS ADRIANE Stop: 12/20/19 21:59 Last Admin: 12/03/19 22:27 Dose: Not Given Documented by: Olanzapine (Zyprexa) 10 mg IM DAILY PRN PRN Reason: Refusal of PO Olanzapine Stop: 12/20/19 13:44 Last Admin: 12/03/19 21:45 Dose: 10 mg Documented by: Sodium Chloride ([place] Nasal) 1 - 2 sprays NA PRN PRN PRN Reason: Nasal Dryness/Congestion Stop: 12/14/19 20:43 Last Admin: 11/20/19 23:10 Dose: 2 sprays Documented by: Post Discharge Appointments Primary Care Physician Name Of Family Doctor: [facility] - Dr. Jeffrey Torres Primary Care Provider Appointment Comment: [address] [facility], [address], [place] [address] Contact Information Discharge Discharge Address: [address] [place] [address], [address], [place] [address]
[2019-12-04] MEDS: OLANZapine 10 MG/2.1 ML SDV IM PRN (21:40)
[2019-12-04] MEDS: OLANZAPINE ZYDIS 10 MG ORALLY DIS. TAB PO SCH (21:50)
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
[2019-12-05] MEDS: OLANZAPINE ZYDIS 10 MG ORALLY DIS. TAB PO SCH (21:51)
[2019-12-05] MEDS: OLANZapine 10 MG/2.1 ML SDV IM PRN (21:52)
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
[2019-12-06] MEDS: OLANZapine 10 MG/2.1 ML SDV IM PRN (21:48)
[2019-12-06] MEDS: OLANZAPINE ZYDIS 10 MG ORALLY DIS. TAB PO SCH (21:52)
--- NOTE | 2019-12-07 09:37 | Psychiatric Progress Note ---
Date of Service December 07, 2019 Impression / Recommendations Impression 59-year-old male admitted involuntarily for inpatient psychiatric treatment. Primary diagnosis of delusional disorder, persecutory type. Information provided by his indicates that several years ago certain changes in his department at the [facility] triggered a certain amount of distrust by the patient, which gradually grew into the elaborate, highly systematized delusional belief system that is currently in place. His delusional system was likely amplified by his tendency to obsess, focus on patterns, and look for theoretical explanations. While patient is highly attached to these delusional beliefs and is demonstrating inability/unwillingness to consider they may not be accurate - the primary safety concern surrounding his condition is the fact that he had been demonstrating highly agitated behavior which was threatening the safety of himself and his (throwing furniture at [place], ripping off door frames, etc). Although his behavior on the unit has been free of threats and violence, he is refusing to involve his , who reports fear for her safety given his behavior (violence directed at her prior to admission) and the fact that he has implicated her in his delusional system and believes she is conspiring within [place] government against him. Further, he is uncooperative with treatment, is refusing medication (although not resisting when given intramuscular injections of olanzapine), and declining outpatient treatment. This is a difficult and complex situation. The patient's dyscontrol behavior does not seem to be specific to his , and even were he to leave the hospital without going home to his , the behaviors described by his give reason to predict that he would quickly become a danger to himself or other people in the community. He lacks insight, and expresses a firm belief that he is on a mission to protect and save innocent people. His calmer behavior here is also within the context of his taking psychiatric medications, and he has made it abundantly clear that he will not consider taking any psychiatric medication unless it is forced on him in the hospital. 304 extended involuntarily commitment was granted on 11/30, and referral to the [facility] has been sent as he remains a danger to himself and others and is refusing to engage in conversation regarding alternative discharge options. (1) Delusional disorder: 11/14 Patient admitted on an involuntary status to the behavioral health unit for continued assessment and treatment as indicated He will be maintained on every 15 minute safety checks We will continue to expand database Consider neuroimaging for w/u of psychosis prn orders for Ativan and Haldol today. I suspect it is likely that he will require medications over objection before he permits any treatment due to what appears to be severely impaired insight. Patient will be reevaluated tomorrow for psychiatric second opinion regarding need for treatment over objection. -presently patient requires continued inpatient hospitalization for workup and treatment of psychosis which was been recently associated with some violent behavior at home. he is at risk of harm to self and others if discharged prematurely. 11/15 -File for 303 involuntary commitment. -Patient is refusing to consider medication, but has haloperidol and Ativan as needed ordered. Would recommend a trial of olanzapine, and agree with medications over objection as he has severe psychotic symptoms which are impairing his ability to function and placing both himself and others at risk of harm due to his violent behavior at home. -Patient is refused to answer questions about whether or not he has guns, so we will need to get this information from his . At this point he is refusing to sign a release for her or anyone else. -Excuse patient from groups due to the severity of his psychosis and violent behavior. Medically necessary private room room due to the same. 11/16 -303 involuntary commitment granted. -Patient continues to refuse to allow his to be involved in treatment. He is now not denying that he was aggressive at home, but is refusing to discuss it, and is focused only on the conspiracy which he says led to his behavior. -Continue to consider medications over objection. At this point, we are attempting to engage the patient in treatment volitionally, and the risk of forcing medications at this time is further alienating him. However, if he is unable to engage in any manner, we will need to reconsider medications over objection. -Patient may attend groups if able to maintain appropriate behavioral control. -Patient has still not been willing to complete admission assessments, and has not been willing to provide certain information. 11/17 -Recommend medications over objection, as the patient is unable to engage in treatment due to the severity of his psychosis and lack of insight, and remains at imminent risk of harm to others, specifically his , if his symptoms remain untreated. He is floridly delusional, now implicating hospital staff in his delusions. He is not able to work as a result of his psychosis, and his is not able to work due to having to supervise him, and is fearful of him given his escalating violence at home. He continues to refuse to allow her to be involved in treatment, is not attending groups, and is refusing to even discuss medication options. Dr. Duarte recommended medications over objection, and I agree, as the patient is unlikely to improve without antipsychotic medication. -Start olanzapine Zydis 5 mg daily, with a 5 mg IM backup for refusal. Order FLP and FG tomorrow for baseline on an atypical antipsychotic. He will also need a medical work-up of psychosis once he is more cooperative, including brain MRI. -Ongoing poor sleep, staff will limit bright lights near his room at night, and if he can be compliant with medication, can move olanzapine to bedtime to assist with sleep. Giving during the day initially to allow for adequate staff in case of need for physical hold or restraint to receive medication. / - Continue olanzapine 5mg daily (offering PO Zydis with IM for refusal) - medications over objection, though patient has been cooperative with his preference for IM administration - Pt offered again PO olanzapine, with the eventual option of converting the medication to HS dosing if he continues to be cooperative - as he reports sedation after receiving the medication - Pt remains delusional and paranoid, unable to discuss examples of how we can assist him during his stay - Maintain MNPR due to level of psychosis - Fasting glucose - wnl at 90; triglycerides elevated at 188, remainder of lipid panel wnl - Continue attempts to coordinate care with patient's 11/19 -Patient is continuing to say that he does not wish for us to speak with his , and he again tells us that he will not sign a consent that will allow us to contact her. As above, his assertion is that he does not want us talking to her because she may tell us things that we will include in the record and that will eventually be used against him, either by the government or by [facility]. As a compromise, the patient says that he will ask his to call us and tell us whether she continues to feel that he is a danger to her, himself, or to anyone else. It was explained that we would also need to be able to talk to her about our concerns and we would need to coordinate aftercare arrangements with her. The patient replied to that by saying simply that he would not allow us to say anything about his care or recommended treatment to her at this time. -There seem to be some early indications that the patient may be responding to olanzapine. Today, when I told him that our concerns about his safety had not to do with his behaviors here in the hospital but, instead, about his behaviors at home (in the community) he quickly responded, "yes, but I am getting medication here!" (He almost immediately realized the implication of what he had just said, and he immediately changed the subject and began talking about how various entities were deliberately provoking him into losing his temper and acting in anger. -The patient tells us that he is using the fact that he has been given intramuscular medications against his will as evidence of our being the "dupes" or agents of the entities behind the conspiracy to silence him. He also reiterates that he believes that taking medication voluntarily is tantamount to acknowledging his need for psychiatric treatment, and he tells us that he has absolutely no psychiatric problem at all and does not need any treatment. -Today, we are increasing his olanzapine's as follows. We will begin olanzapine ODT 10 mg at bedtime starting tonight. We have also changed his order for medications over objection to olanzapine 10 mg IM daily for refusal of p.o. olanzapine. -Although the patient's presentation has many of the symptoms of a delusional disorder, persecutory typegiven the elaborate nature of the delusional system, we continue to suspect that what we are seeing is a somewhat atypical jorge, or discrete manic episodes overlaying a underlying delusional disorder. If the explanation for the patient's presentation is symptoms of a manic episode, his prognosis is better. We discussed the possibility of adding an antiobsessional medication which sometimes helps with pure delusional disorders, but the patient says that, absolutely, he will not take any medication that we offer him voluntarily. 11/22--continue Zyprexa IM hs, continues to refuse family meeting with due to paranoia, refuses 2-3 trial of PO Invega to convert to injectable. 11/23--File for 304 hearing d/t ongoing psychosis, lack of insight, refusal for outpatient treatment or ongoing medication, refusal to involve , and high risk for return to violent behavior if home w/ , whom he believes is part of the conspiracy against him. 11/24 - Continue olanzapine IM, continuing to offer patient PO medication which he is consistently refusing - Pt continues to refuse to involve in conversations regarding discharge and safety planning - 304 hearing scheduled for 11/30; pt continues to be psychotic and remains unable to engage in productive safety and discharge planing, therefore remains at high risk of harm to sefl or others if he is discharged home in his current state 11/25 - Titrating olanzapine to 10mg daily; patient continues to refuse offer for PO and is therefore continuing to receive IM injections each evening - 304 hearing 11/30; pt continues to be unwilling to participate in safety and discharge planning efforts 11/26 -The patient tells me that he received olanzapine 10 mg last evening and says that he feels that it has helped him sleep better. However, he notes that his sleep difficulty is related to the fact that his sleep schedule in the hospital is substantially different from the one that he is used to at home, with bedtime here at the hospital being 3 or 4 hours earlier than he is used to. Nevertheless, he says that he believes that he is not having any side effects from olanzapine and that, in the sense that it does help him fall asleep, it helps. Nevertheless, he also repeats today that he will not continue to take any medication, including olanzapine, if he is discharged. -I spoke with the patient's today, without disclosing any protected clinical data regarding the patient. She acknowledges that he frightens her, and, particularly recently, has caused her to fear for her personal physical safety. At the same time, she says tells me that she thinks that if she gets some advice about how best to "handle somebody who is delusional" possibly by getting into individual therapy, herself, she may be able to take him home. She also reports that should he be released (she is aware of upcoming hearing) that she will agree to take him home, because she loves him and wants to protect him, but continues to fear that he may again lose control of his behavior as a function of his delusions. -Today, the patient tells me that he recognizes that in his upcoming hearing on 11/30 (304) the issue may boil down to whether he can assure that he will be safe in the community and will not represent a risk to anyone else, even if he does not take medication. He also says that he recognizes the "Catch-22" that he is in because he realizes that the hospital is likely to say that his behavior in the hospital has been positively influenced by his taking olanzapine, and that without the structure of the hospital and without the medications, he may revert to the dangerous behaviors that precipitated the admission. -Of concern is the fact that the patient's tells us today that, effective yesterday, he has told her that he will no longer speak to her telephonically, and if he is released from the hospital on Saturday he will simply walk home, and if she is not comfortable being home with him she should leave. However, by the end of today he is allowing that he truly believes that his loves him and would not try to harm him if she had any choice, so he is at least considering contacting her again by telephone. 11/27 -Patient informed of 304 hearing and plan to refer to the [facility], as well as additional labs needed for that referral. -He continues to refuse a family meeting with his , who has expressed ongoing concern for her safety. He continues to refuse p.o. medication, outpatient treatment, and discussion of his aggression at home or plans to mitigate it. He remains at risk of harm to others, particularly his , and if discharged prematurely, as she is implicated in his delusion and he believes she has part of the conspiracy against him. -Encourage the patient to attend groups and focus on his own emotional reaction to his perception of events, healthy coping skills, and a discharge safety plan; all of which thus far he has been unwilling to do. 11/28 - 11/29 -Patient refused PPD, EKG, and chest x-ray for [facility] referral. He is refusing to consider a trial of Invega/MERCADO, and continues to refuse a family meeting. -304 involuntary commitment hearing scheduled for 12/01/2019, and will then pursue referral to the [facility]. 11/30 - 304 involuntary commitment granted today, referral to the [facility] is reportedly supported by the [facility] at this time - Pt was again offered PPD, EKG and CXR for [facility] referral, which he again declined - Although he is not overtly refusing medication changes, he does verbalize desire to give olanzapine "another week" before switching to another agent. 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 He remains delusional and without insight, refusing medication (although getting the IM of Zyprexa daily), a family meeting, or discharge planning/outpatient care. -Recommend referral to [facility] for long-term inpatient treatment, will simultaneously referring for a BCM and working on potential diversion plans. 12/02 - Continue IM olanzapine - as continues to refuse oral medications or discussion regarding alternative agents - Most documentation sent to [facility] for referral - awaiting 303 and 304 findings to be sent and will then fax these as well - Pt continues to decline medical tests generally requested as part of [facility] referral, but cannot force these studies to be done 12/03 -We will increase his dose of IM olanzapine to 12.5 mg at bedtime. The medication thus far does not seem to have had much of a favorable impact on the patient's delusional belief system, and he is not willing to consider antiobsessional medications in the form of a selective serotonin reuptake inhibitor. However, the patient is now sleeping better and his general demeanor has been more calm, more pleasant, and more self-possessed. -The patient reports that he does not feel that he is experiencing any side effects from olanzapine, but fall short of saying that it is helping him in any way, other than perhaps for sleep. He mentions that he sometimes has a pain in his left abdominal wall and lower rib cage that he says he does not feel as a side effect from medication but, rather, the result of his doing sit ups and his bedroom by placing his feet under the mattress and exercising in that way. 12/04 - 12/05 -Zyprexa 12.5 mg IM po qhs, sedation from yesterday seems to be resolving, can likely be increased tomorrow. 12/06 - Continue olanzapine 12.5mg IM this evening - continue attempts to engage patient in conversation regarding dose increases or consideration of alternative agents - Pt continues to be unwilling to participate in conversation regarding alternative discharge plans to state hospitalization. He continues to refuse to involve his or any other outpatient support in safety/discharge planning. - Referral to [facility] was completed and is reportedly being reviewed. Risk Factors Assessment Male: Yes : Yes Do You Have Access To A Gun?: No ( denies that they have any guns at home) Health Problems: No Mental Health Diagnoses: Yes Substance Use Disorders: No Previous Attempt: No Previous Psychiatric Hospitalization: No Hopelessness: No Smoker: No Protective Factors Assessment : Yes Responsible for Young Children: No Employed: No Stable Relationships: No ( is supportive, but fearful of him due to his violence towards her.) Good Rapport with Provider: No (No outpatient providers.) Interval History Identifying Information SAL MAGANA is a 59-year-old M admitted on 11/14/19 19:58 on a 302 involuntary commitment for paranoia and violence at home, on a 304 extended involuntary commitment as of 11/30. Chief Complaint "Um. I'd like to talk at that table, but I don't have much to say." Review of Systems Notes Constitutional: denied Cardiovascular: denied Respiratory: denied Gastrointestinal: denied Neurological: denied Musculoskeletal: reports ongoing left-sided abdominal muscle soreness Psychiatric: denies symptoms other than stated above Total of at least 10 systems reviewed, pertinent positives as above and in HPI. Sleep Information Total Hours of Sleep: 6.5 Sleep Comments: pt on q-15 minute checks Meal Information Percent Meal Consumed - Breakfast: 100 Percent Meal Consumed - Lunch: 100 Percent Meal Consumed - Dinner: 100 Nutrition Comment: per meal record Subjective Subjective Patient was seen & assessed and interval progress reviewed with treatment team. Staff report the patient has been appearing somewhat more sedated, and has been more withdrawn to his room during the day. Pt continues to be unwilling to participate in efforts for diversion plan. [facility] referral has been sent and is reportedly being reviewed by their physician. Pt was seen today to assess progress since admission. Pt states he is fine, but "I don't have much to say." Pt was offered to speak in his room or in the activity room, as they were more private locations. He requests to speak at the table he uses during the day to work on his math equations. Pt verbalized he was okay to speak at this location despite other patients being present in the day area. Pt denies any concerns at this time, stating he weekend went well. He reports the same "side effects" of left-sided abdominal muscle soreness, which he perceives to be related to the olanzapine. Pt does not feel that this has worsened despite dose being titrated prior to the weekend. Pt does not feel that the medication is offering any benefit, but states "I'm sure it's doing what you want it to be doing." Pt was reminded that we are utilizing the medication for what is believed to be delusions thoughts, but that staff is also observing that the patient is appearing more calm and seems to be sleeping well. Pt states "I think that's terrible to have to take a chemical in order to sleep. That's a tragedy." Pt also states "and if you were privy to the information I have you would get angry too, I should be getting angry knowing what I know." Pt was reminded of [place] referral, but this provider reiterated desire to work with the patient toward a diversion plan if he was willing to participate in discharge/safety planning and willing to include his . Pt continues to refuse this - repeated "Yeah, sure, you want to help." Pt stated "I have nothing else to say, thanks for your time." Physical Exam Psychiatric Orientation: alert and + guarded (more irritable, limited willingness for conversation) Apperance: appropriately dressed (casually, but wearing same clothes for several days) and + disheveled (long hair, appearing more unkempt as admission progresses ) Eye Contact: + fair eye contact Motor Behavior: steady gait and station and no abnormal motor movements Speech: normal rate/rhythm/volume of speech (irritable tone) Affect: + irritable affect Thought Process: + thought process not linear or logical Thought Content: + preoccupation, + paranoid, + delusions and + persecution Suicidal Thoughts: denies suicidal thoughts Homicidal Thoughts: denies homicidal thoughts Hallucinations: no auditory hallucinations and no visual hallucinations Cognition: attention grossly intact and language grossly intact Estimated Intelligence: consistent with education level Insight: + severely impaired insight Judgement: + poor judgement Vital Signs (Past 24 Hours) Last Vital Signs Temp 36.5 C 12/07/19 06:32 Pulse 73 12/07/19 06:32 Resp 18 12/07/19 06:32 BP 130/77 12/07/19 06:32 Pulse Ox 98 11/14/19 20:15 Results & Data ([facility]) Current Inpatient Medications Current Inpatient Medications: Current Inpatient Medications Acetaminophen (Tylenol) 650 mg PO Q4H PRN PRN Reason: Headache or Minor Fever Stop: 12/14/19 20:43 Al Hydrox/Mg Hydrox/Simethicone (Maalox) 30 ml PO Q4H PRN PRN Reason: GI Upset Stop: 12/14/19 20:43 Bismuth Subsalicylate (Kaopectate) 15 ml PO PRN PRN PRN Reason: Loose Stool Stop: 12/14/19 20:43 Haloperidol (Haldol) 5 mg PO Q8H PRN PRN Reason: agitation/psychosis Stop: 12/15/19 09:59 Haloperidol Lactate (Haldol) 5 mg IM Q8H PRN PRN Reason: for behavioral emergency Stop: 12/15/19 09:50 Hydroxyzine HCl (Vistaril) 50 mg PO HSZ PRN PRN Reason: Insomnia Stop: 12/14/19 20:43 Hydroxyzine HCl (Vistaril) 25 mg PO Q4H PRN PRN Reason: Anxiety Stop: 12/14/19 20:43 Lorazepam (Ativan) 1 mg PO Q8H PRN PRN Reason: Anxiety/irritability Stop: 12/15/19 09:52 Magnesium Hydroxide (Milk Of Magnesia) 30 ml PO DAILY PRN PRN Reason: Constipation Stop: 12/14/19 20:43 Olanzapine (Zyprexa Zydis Od) 10 mg PO HS ADRIANE Stop: 12/20/19 21:59 Last Admin: 12/06/19 21:52 Dose: Not Given Documented by: Olanzapine (Zyprexa) 12.5 mg IM HS PRN PRN Reason: Refusal of PO Olanzapine Stop: 01/03/20 21:59 Last Admin: 12/06/19 21:48 Dose: 12.5 mg Documented by: Sodium Chloride ([place] Nasal) 1 - 2 sprays NA PRN PRN PRN Reason: Nasal Dryness/Congestion Stop: 12/14/19 20:43 Last Admin: 11/20/19 23:10 Dose: 2 sprays Documented by: Post Discharge Appointments Primary Care Physician Name Of Family Doctor: [facility] - Dr. Jeffrey Torres Primary Care Provider Appointment Comment: [address], [address], [place] [address] Other #1: Name of Aftercare Appointment: [facility] - Preeti Kelly Phone Number of Aftercare Appointment: [phone] Contact Information Discharge Discharge Address: [address] [place] [address], [id number], [place] [address]
[2019-12-07] MEDS: OLANZapine 10 MG/2.1 ML SDV IM PRN (22:48)
[2019-12-07] MEDS: OLANZAPINE ZYDIS 10 MG ORALLY DIS. TAB PO SCH (22:54)
--- NOTE | 2019-12-08 09:19 | Psychiatric Progress Note ---
Date of Service December 08, 2019 Impression / Recommendations Impression 59-year-old male admitted involuntarily for inpatient psychiatric treatment. Primary diagnosis of delusional disorder, persecutory type. Information provided by his indicates that several years ago certain changes in his department at the [facility] triggered a certain amount of distrust by the patient, which gradually grew into the elaborate, highly systematized delusional belief system that is currently in place. His delusional system was likely amplified by his tendency to obsess, focus on patterns, and look for theoretical explanations. While patient is highly attached to these delusional beliefs and is demonstrating inability/unwillingness to consider they may not be accurate - the primary safety concern surrounding his condition is the fact that he had been demonstrating highly agitated behavior which was threatening the safety of himself and his (throwing furniture at [place], ripping off door frames, etc). Although his behavior on the unit has been free of threats and violence, he is refusing to involve his , who reports fear for her safety given his behavior (violence directed at her prior to admission) and the fact that he has implicated her in his delusional system and believes she is conspiring within [place] government against him. Further, he is uncooperative with treatment, is refusing medication (although not resisting when given intramuscular injections of olanzapine), and declining outpatient treatment. This is a difficult and complex situation. The patient's dyscontrol behavior does not seem to be specific to his , and even were he to leave the hospital without going home to his , the behaviors described by his give reason to predict that he would quickly become a danger to himself or other people in the community. He lacks insight, and expresses a firm belief that he is on a mission to protect and save innocent people. His calmer behavior here is also within the context of his taking psychiatric medications, and he has made it abundantly clear that he will not consider taking any psychiatric medication unless it is forced on him in the hospital. 304 extended involuntarily commitment was granted on 11/30, and referral to the [facility] has been sent as he remains a danger to himself and others and is refusing to engage in conversation regarding alternative discharge options. (1) Delusional disorder: 11/14 Patient admitted on an involuntary status to the behavioral health unit for continued assessment and treatment as indicated He will be maintained on every 15 minute safety checks We will continue to expand database Consider neuroimaging for w/u of psychosis prn orders for Ativan and Haldol today. I suspect it is likely that he will require medications over objection before he permits any treatment due to what appears to be severely impaired insight. Patient will be reevaluated tomorrow for psychiatric second opinion regarding need for treatment over objection. -presently patient requires continued inpatient hospitalization for workup and treatment of psychosis which was been recently associated with some violent behavior at home. he is at risk of harm to self and others if discharged prematurely. 11/15 -File for 303 involuntary commitment. -Patient is refusing to consider medication, but has haloperidol and Ativan as needed ordered. Would recommend a trial of olanzapine, and agree with medications over objection as he has severe psychotic symptoms which are impairing his ability to function and placing both himself and others at risk of harm due to his violent behavior at home. -Patient is refused to answer questions about whether or not he has guns, so we will need to get this information from his . At this point he is refusing to sign a release for her or anyone else. -Excuse patient from groups due to the severity of his psychosis and violent behavior. Medically necessary private room room due to the same. 11/16 -303 involuntary commitment granted. -Patient continues to refuse to allow his to be involved in treatment. He is now not denying that he was aggressive at home, but is refusing to discuss it, and is focused only on the conspiracy which he says led to his behavior. -Continue to consider medications over objection. At this point, we are attempting to engage the patient in treatment volitionally, and the risk of forcing medications at this time is further alienating him. However, if he is unable to engage in any manner, we will need to reconsider medications over objection. -Patient may attend groups if able to maintain appropriate behavioral control. -Patient has still not been willing to complete admission assessments, and has not been willing to provide certain information. 11/17 -Recommend medications over objection, as the patient is unable to engage in treatment due to the severity of his psychosis and lack of insight, and remains at imminent risk of harm to others, specifically his , if his symptoms remain untreated. He is floridly delusional, now implicating hospital staff in his delusions. He is not able to work as a result of his psychosis, and his is not able to work due to having to supervise him, and is fearful of him given his escalating violence at home. He continues to refuse to allow her to be involved in treatment, is not attending groups, and is refusing to even discuss medication options. Dr. Duarte recommended medications over objection, and I agree, as the patient is unlikely to improve without antipsychotic medication. -Start olanzapine Zydis 5 mg daily, with a 5 mg IM backup for refusal. Order FLP and FG tomorrow for baseline on an atypical antipsychotic. He will also need a medical work-up of psychosis once he is more cooperative, including brain MRI. -Ongoing poor sleep, staff will limit bright lights near his room at night, and if he can be compliant with medication, can move olanzapine to bedtime to assist with sleep. Giving during the day initially to allow for adequate staff in case of need for physical hold or restraint to receive medication. / - Continue olanzapine 5mg daily (offering PO Zydis with IM for refusal) - medications over objection, though patient has been cooperative with his preference for IM administration - Pt offered again PO olanzapine, with the eventual option of converting the medication to HS dosing if he continues to be cooperative - as he reports sedation after receiving the medication - Pt remains delusional and paranoid, unable to discuss examples of how we can assist him during his stay - Maintain MNPR due to level of psychosis - Fasting glucose - wnl at 90; triglycerides elevated at 188, remainder of lipid panel wnl - Continue attempts to coordinate care with patient's 11/19 -Patient is continuing to say that he does not wish for us to speak with his , and he again tells us that he will not sign a consent that will allow us to contact her. As above, his assertion is that he does not want us talking to her because she may tell us things that we will include in the record and that will eventually be used against him, either by the government or by [facility]. As a compromise, the patient says that he will ask his to call us and tell us whether she continues to feel that he is a danger to her, himself, or to anyone else. It was explained that we would also need to be able to talk to her about our concerns and we would need to coordinate aftercare arrangements with her. The patient replied to that by saying simply that he would not allow us to say anything about his care or recommended treatment to her at this time. -There seem to be some early indications that the patient may be responding to olanzapine. Today, when I told him that our concerns about his safety had not to do with his behaviors here in the hospital but, instead, about his behaviors at home (in the community) he quickly responded, "yes, but I am getting medication here!" (He almost immediately realized the implication of what he had just said, and he immediately changed the subject and began talking about how various entities were deliberately provoking him into losing his temper and acting in anger. -The patient tells us that he is using the fact that he has been given intramuscular medications against his will as evidence of our being the "dupes" or agents of the entities behind the conspiracy to silence him. He also reiterates that he believes that taking medication voluntarily is tantamount to acknowledging his need for psychiatric treatment, and he tells us that he has absolutely no psychiatric problem at all and does not need any treatment. -Today, we are increasing his olanzapine's as follows. We will begin olanzapine ODT 10 mg at bedtime starting tonight. We have also changed his order for medications over objection to olanzapine 10 mg IM daily for refusal of p.o. olanzapine. -Although the patient's presentation has many of the symptoms of a delusional disorder, persecutory typegiven the elaborate nature of the delusional system, we continue to suspect that what we are seeing is a somewhat atypical jorge, or discrete manic episodes overlaying a underlying delusional disorder. If the explanation for the patient's presentation is symptoms of a manic episode, his prognosis is better. We discussed the possibility of adding an antiobsessional medication which sometimes helps with pure delusional disorders, but the patient says that, absolutely, he will not take any medication that we offer him voluntarily. 11/22--continue Zyprexa IM hs, continues to refuse family meeting with due to paranoia, refuses 2-3 trial of PO Invega to convert to injectable. 11/23--File for 304 hearing d/t ongoing psychosis, lack of insight, refusal for outpatient treatment or ongoing medication, refusal to involve , and high risk for return to violent behavior if home w/ , whom he believes is part of the conspiracy against him. 11/24 - Continue olanzapine IM, continuing to offer patient PO medication which he is consistently refusing - Pt continues to refuse to involve in conversations regarding discharge and safety planning - 304 hearing scheduled for 11/30; pt continues to be psychotic and remains unable to engage in productive safety and discharge planing, therefore remains at high risk of harm to sefl or others if he is discharged home in his current state 11/25 - Titrating olanzapine to 10mg daily; patient continues to refuse offer for PO and is therefore continuing to receive IM injections each evening - 304 hearing 11/30; pt continues to be unwilling to participate in safety and discharge planning efforts 11/26 -The patient tells me that he received olanzapine 10 mg last evening and says that he feels that it has helped him sleep better. However, he notes that his sleep difficulty is related to the fact that his sleep schedule in the hospital is substantially different from the one that he is used to at home, with bedtime here at the hospital being 3 or 4 hours earlier than he is used to. Nevertheless, he says that he believes that he is not having any side effects from olanzapine and that, in the sense that it does help him fall asleep, it helps. Nevertheless, he also repeats today that he will not continue to take any medication, including olanzapine, if he is discharged. -I spoke with the patient's today, without disclosing any protected clinical data regarding the patient. She acknowledges that he frightens her, and, particularly recently, has caused her to fear for her personal physical safety. At the same time, she says tells me that she thinks that if she gets some advice about how best to "handle somebody who is delusional" possibly by getting into individual therapy, herself, she may be able to take him home. She also reports that should he be released (she is aware of upcoming hearing) that she will agree to take him home, because she loves him and wants to protect him, but continues to fear that he may again lose control of his behavior as a function of his delusions. -Today, the patient tells me that he recognizes that in his upcoming hearing on 11/30 (304) the issue may boil down to whether he can assure that he will be safe in the community and will not represent a risk to anyone else, even if he does not take medication. He also says that he recognizes the "Catch-22" that he is in because he realizes that the hospital is likely to say that his behavior in the hospital has been positively influenced by his taking olanzapine, and that without the structure of the hospital and without the medications, he may revert to the dangerous behaviors that precipitated the admission. -Of concern is the fact that the patient's tells us today that, effective yesterday, he has told her that he will no longer speak to her telephonically, and if he is released from the hospital on Saturday he will simply walk home, and if she is not comfortable being home with him she should leave. However, by the end of today he is allowing that he truly believes that his loves him and would not try to harm him if she had any choice, so he is at least considering contacting her again by telephone. 11/27 -Patient informed of 304 hearing and plan to refer to the [facility], as well as additional labs needed for that referral. -He continues to refuse a family meeting with his , who has expressed ongoing concern for her safety. He continues to refuse p.o. medication, outpatient treatment, and discussion of his aggression at home or plans to mitigate it. He remains at risk of harm to others, particularly his , and if discharged prematurely, as she is implicated in his delusion and he believes she has part of the conspiracy against him. -Encourage the patient to attend groups and focus on his own emotional reaction to his perception of events, healthy coping skills, and a discharge safety plan; all of which thus far he has been unwilling to do. 11/28 - 11/29 -Patient refused PPD, EKG, and chest x-ray for [facility] referral. He is refusing to consider a trial of Invega/MERCADO, and continues to refuse a family meeting. -304 involuntary commitment hearing scheduled for 12/01/2019, and will then pursue referral to the [facility]. 11/30 - 304 involuntary commitment granted today, referral to the [facility] is reportedly supported by the [facility] at this time - Pt was again offered PPD, EKG and CXR for [facility] referral, which he again declined - Although he is not overtly refusing medication changes, he does verbalize desire to give olanzapine "another week" before switching to another agent. 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 He remains delusional and without insight, refusing medication (although getting the IM of Zyprexa daily), a family meeting, or discharge planning/outpatient care. -Recommend referral to [facility] for long-term inpatient treatment, will simultaneously referring for a BCM and working on potential diversion plans. 12/02 - Continue IM olanzapine - as continues to refuse oral medications or discussion regarding alternative agents - Most documentation sent to [facility] for referral - awaiting 303 and 304 findings to be sent and will then fax these as well - Pt continues to decline medical tests generally requested as part of [facility] referral, but cannot force these studies to be done 12/03 -We will increase his dose of IM olanzapine to 12.5 mg at bedtime. The medication thus far does not seem to have had much of a favorable impact on the patient's delusional belief system, and he is not willing to consider antiobsessional medications in the form of a selective serotonin reuptake inhibitor. However, the patient is now sleeping better and his general demeanor has been more calm, more pleasant, and more self-possessed. -The patient reports that he does not feel that he is experiencing any side effects from olanzapine, but fall short of saying that it is helping him in any way, other than perhaps for sleep. He mentions that he sometimes has a pain in his left abdominal wall and lower rib cage that he says he does not feel as a side effect from medication but, rather, the result of his doing sit ups and his bedroom by placing his feet under the mattress and exercising in that way. 12/04 - 12/05 -Zyprexa 12.5 mg IM po qhs, sedation from yesterday seems to be resolving, can likely be increased tomorrow. 12/06 - Continue olanzapine 12.5mg IM this evening - continue attempts to engage patient in conversation regarding dose increases or consideration of alternative agents - Pt continues to be unwilling to participate in conversation regarding alternative discharge plans to state hospitalization. He continues to refuse to involve his or any other outpatient support in safety/discharge planning. - Referral to [facility] was completed and is reportedly being reviewed. 12/07 - Titrating Zyprexa 15mg IM - patient continues to refuse offer for oral medications. Pt was offered discussion about alternative agents, but declined. - Referral officially received by [facility] on 12/02/2019 (304 findings to be sent once received) - awaiting response regarding acceptance decision - Continue attempts to engage patient in discharge and safety planning - patient continues to be unwilling to discuss possible diversion plans Risk Factors Assessment Male: Yes : Yes Do You Have Access To A Gun?: No ( denies that they have any guns at home) Health Problems: No Mental Health Diagnoses: Yes Substance Use Disorders: No Previous Attempt: No Previous Psychiatric Hospitalization: No Hopelessness: No Smoker: No Protective Factors Assessment : Yes Responsible for Young Children: No Employed: No Stable Relationships: No ( is supportive, but fearful of him due to his violence towards her.) Good Rapport with Provider: No (No outpatient providers.) Interval History Identifying Information SAL MAGANA is a 59-year-old M admitted on 11/14/19 19:58 on a 302 involuntary commitment for paranoia and violence at home, on a 304 extended involuntary c ommitment as of 11/30. Chief Complaint "What's that? Oh, I'm fine." Review of Systems Notes Constitutional: denied Cardiovascular: denied Respiratory: denied Gastrointestinal: denied Neurological: denied Psychiatric: denies symptoms other than stated above Total of at least 10 systems reviewed, pertinent positives as above and in HPI. Sleep Information Total Hours of Sleep: 6 Sleep Comments: pt on q-15 minute checks Meal Information Percent Meal Consumed - Breakfast: 100 Percent Meal Consumed - Lunch: 100 Percent Meal Consumed - Dinner: 100 Nutrition Comment: per meal record Subjective Subjective Patient was seen & assessed and interval progress reviewed with nursing and social work. Staff report the patient has been appearing less animated with increasing doses of olanzapine. Pt continues to refuse to participate in group programming or engage in conversation about discharge/safety planning. [facility] referral received 12/01 - awaiting possible response. Pt was seen today to assess progress since admission. 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 He indicates that he does not have a desire to attend group programming, as "I feel this work is more productive and meaningful than anything I could be doing in groups." Pt states that he has been doing well otherwise. He continues to speak to his via phone regularly. Pt was informed that he has been on a consistent dose of olanzapine for several days now, and that treatment team recommendation is to continue to titrate the medication or to discuss alternative options. Pt states "for what? What am I doing? You're just going to chemically inject me and ask questions later?" This provider attempted several times to explain our concern that he is experiencing delusional beliefs and that medications are felt to be necessary in order to treat his condition. Pt interrupted this provider several times during attempts to explain. In a cynical tone, the patient states "what you shouldn't do is contact the University, you shouldn't ask the mathematics department about their mismanagement of thousands of student's curriculum, you shouldn't ask what happened at the daycare center on that it had to be demolished. Because if you ask those questions, you may just find the truth - and you don't want that do you? So just keep chemically injecting me." Pt was informed of our plan to titrate olanzapine, after he was offered and declined to consider alternative agents. Pt denied any additional questions at this time. Physical Exam Psychiatric Orientation: alert, oriented x 3 and + guarded (irritable and argumentative) Apperance: appropriately dressed (wearing same clothes for several days) and + disheveled Eye Contact: + fair eye contact Motor Behavior: no abnormal motor movements (observed while sitting at table in the day area ) Speech: normal rate/rhythm/volume of speech (irritable tone) Affect: + irritable affect Mood: + irritable mood Thought Process: + perseveration; + thought process not linear or logical Thought Content: + preoccupation, + paranoid, + delusions and + persecution Suicidal Thoughts: denies suicidal thoughts Homicidal Thoughts: denies homicidal thoughts Cognition: attention grossly intact and language grossly intact Insight: + severely impaired insight Judgement: + poor judgement Vital Signs (Past 24 Hours) Last Vital Signs Temp 36.6 C 12/08/19 06:40 Pulse 84 12/08/19 06:41 Resp 18 12/08/19 06:40 BP 116/66 12/08/19 06:41 Pulse Ox 98 11/14/19 20:15 Results & Data ([facility]) Current Inpatient Medications Current Inpatient Medications: Current Inpatient Medications Acetaminophen (Tylenol) 650 mg PO Q4H PRN PRN Reason: Headache or Minor Fever Stop: 12/14/19 20:43 Al Hydrox/Mg Hydrox/Simethicone (Maalox) 30 ml PO Q4H PRN PRN Reason: GI Upset Stop: 12/14/19 20:43 Bismuth Subsalicylate (Kaopectate) 15 ml PO PRN PRN PRN Reason: Loose Stool Stop: 12/14/19 20:43 Haloperidol (Haldol) 5 mg PO Q8H PRN PRN Reason: agitation/psychosis Stop: 12/15/19 09:59 Haloperidol Lactate (Haldol) 5 mg IM Q8H PRN PRN Reason: for behavioral emergency Stop: 12/15/19 09:50 Hydroxyzine HCl (Vistaril) 50 mg PO HSZ PRN PRN Reason: Insomnia Stop: 12/14/19 20:43 Hydroxyzine HCl (Vistaril) 25 mg PO Q4H PRN PRN Reason: Anxiety Stop: 12/14/19 20:43 Lorazepam (Ativan) 1 mg PO Q8H PRN PRN Reason: Anxiety/irritability Stop: 12/15/19 09:52 Magnesium Hydroxide (Milk Of Magnesia) 30 ml PO DAILY PRN PRN Reason: Constipation Stop: 12/14/19 20:43 Olanzapine (Zyprexa Zydis Od) 10 mg PO HS ADRIANE Stop: 12/20/19 21:59 Last Admin: 12/07/19 22:54 Dose: Not Given Documented by: Olanzapine (Zyprexa) 12.5 mg IM HS PRN PRN Reason: Refusal of PO Olanzapine Stop: 01/03/20 21:59 Last Admin: 12/07/19 22:48 Dose: 12.5 mg Documented by: Sodium Chloride (Maribel Nasal) 1 - 2 sprays NA PRN PRN PRN Reason: Nasal Dryness/Congestion Stop: 12/14/19 20:43 Last Admin: 11/20/19 23:10 Dose: 2 sprays Documented by: Post Discharge Appointments Primary Care Physician Name Of Family Doctor: [facility] - Dr. Jeffrey Torres Primary Care Provider Appointment Comment: [id number], [address], [place] [address] Other #1: Name of Aftercare Appointment: [facility] Geological Drafter - Preeti Kelly Phone Number of Aftercare Appointment: [phone] Contact Information Discharge Discharge Address: [address] [place] [address], [address], [place] [address]
[2019-12-08] MEDS: OLANZapine 10 MG/2.1 ML SDV IM PRN (22:15)
[2019-12-08] MEDS: OLANZAPINE ZYDIS 10 MG ORALLY DIS. TAB PO SCH (22:15)
--- NOTE | 2019-12-09 09:23 | Psychiatric Progress Note ---
Date of Service December 09, 2019 Impression / Recommendations Impression 59-year-old male admitted involuntarily for inpatient psychiatric treatment. Primary diagnosis of delusional disorder, persecutory type. Information provided by his indicates that several years ago certain changes in his department at the [facility] triggered a certain amount of distrust by the patient, which gradually grew into the elaborate, highly systematized delusional belief system that is currently in place. His delusional system was likely amplified by his tendency to obsess, focus on patterns, and look for theoretical explanations. While patient is highly attached to these delusional beliefs and is demonstrating inability/unwillingness to consider they may not be accurate - the primary safety concern surrounding his condition is the fact that he had been demonstrating highly agitated behavior which was threatening the safety of himself and his (throwing furniture at [place], ripping off door frames, etc). Although his behavior on the unit has been free of threats and violence, he is refusing to involve his , who reports fear for her safety given his behavior (violence directed at her prior to admission) and the fact that he has implicated her in his delusional system and believes she is conspiring within [place] government against him. Further, he is uncooperative with treatment, is refusing medication (although not resisting when given intramuscular injections of olanzapine), and declining outpatient treatment. This is a difficult and complex situation. The patient's dyscontrol behavior does not seem to be specific to his , and even were he to leave the hospital without going home to his , the behaviors described by his give reason to predict that he would quickly become a danger to himself or other people in the community. He lacks insight, and expresses a firm belief that he is on a mission to protect and save innocent people. His calmer behavior here is also within the context of his taking psychiatric medications, and he has made it abundantly clear that he will not consider taking any psychiatric medication unless it is forced on him in the hospital. 304 extended involuntarily commitment was granted on 11/30, and referral to the [facility] has been sent as he remains a danger to himself and others and is refusing to engage in conversation regarding alternative discharge options. (1) Delusional disorder: 11/14 Patient admitted on an involuntary status to the behavioral health unit for continued assessment and treatment as indicated He will be maintained on every 15 minute safety checks We will continue to expand database Consider neuroimaging for w/u of psychosis prn orders for Ativan and Haldol today. I suspect it is likely that he will require medications over objection before he permits any treatment due to what appears to be severely impaired insight. Patient will be reevaluated tomorrow for psychiatric second opinion regarding need for treatment over objection. -presently patient requires continued inpatient hospitalization for workup and treatment of psychosis which was been recently associated with some violent behavior at home. he is at risk of harm to self and others if discharged prematurely. 11/15 -File for 303 involuntary commitment. -Patient is refusing to consider medication, but has haloperidol and Ativan as needed ordered. Would recommend a trial of olanzapine, and agree with medications over objection as he has severe psychotic symptoms which are impairing his ability to function and placing both himself and others at risk of harm due to his violent behavior at home. -Patient is refused to answer questions about whether or not he has guns, so we will need to get this information from his . At this point he is refusing to sign a release for her or anyone else. -Excuse patient from groups due to the severity of his psychosis and violent behavior. Medically necessary private room room due to the same. 11/16 -303 involuntary commitment granted. -Patient continues to refuse to allow his to be involved in treatment. He is now not denying that he was aggressive at home, but is refusing to discuss it, and is focused only on the conspiracy which he says led to his behavior. -Continue to consider medications over objection. At this point, we are attempting to engage the patient in treatment volitionally, and the risk of forcing medications at this time is further alienating him. However, if he is unable to engage in any manner, we will need to reconsider medications over objection. -Patient may attend groups if able to maintain appropriate behavioral control. -Patient has still not been willing to complete admission assessments, and has not been willing to provide certain information. 11/17 -Recommend medications over objection, as the patient is unable to engage in treatment due to the severity of his psychosis and lack of insight, and remains at imminent risk of harm to others, specifically his , if his symptoms remain untreated. He is floridly delusional, now implicating hospital staff in his delusions. He is not able to work as a result of his psychosis, and his is not able to work due to having to supervise him, and is fearful of him given his escalating violence at home. He continues to refuse to allow her to be involved in treatment, is not attending groups, and is refusing to even discuss medication options. Dr. Duarte recommended medications over objection, and I agree, as the patient is unlikely to improve without antipsychotic medication. -Start olanzapine Zydis 5 mg daily, with a 5 mg IM backup for refusal. Order FLP and FG tomorrow for baseline on an atypical antipsychotic. He will also need a medical work-up of psychosis once he is more cooperative, including brain MRI. -Ongoing poor sleep, staff will limit bright lights near his room at night, and if he can be compliant with medication, can move olanzapine to bedtime to assist with sleep. Giving during the day initially to allow for adequate staff in case of need for physical hold or restraint to receive medication. / - Continue olanzapine 5mg daily (offering PO Zydis with IM for refusal) - medications over objection, though patient has been cooperative with his preference for IM administration - Pt offered again PO olanzapine, with the eventual option of converting the medication to HS dosing if he continues to be cooperative - as he reports sedation after receiving the medication - Pt remains delusional and paranoid, unable to discuss examples of how we can assist him during his stay - Maintain MNPR due to level of psychosis - Fasting glucose - wnl at 90; triglycerides elevated at 188, remainder of lipid panel wnl - Continue attempts to coordinate care with patient's 11/19 -Patient is continuing to say that he does not wish for us to speak with his , and he again tells us that he will not sign a consent that will allow us to contact her. As above, his assertion is that he does not want us talking to her because she may tell us things that we will include in the record and that will eventually be used against him, either by the government or by [facility]. As a compromise, the patient says that he will ask his to call us and tell us whether she continues to feel that he is a danger to her, himself, or to anyone else. It was explained that we would also need to be able to talk to her about our concerns and we would need to coordinate aftercare arrangements with her. The patient replied to that by saying simply that he would not allow us to say anything about his care or recommended treatment to her at this time. -There seem to be some early indications that the patient may be responding to olanzapine. Today, when I told him that our concerns about his safety had not to do with his behaviors here in the hospital but, instead, about his behaviors at home (in the community) he quickly responded, "yes, but I am getting medication here!" (He almost immediately realized the implication of what he had just said, and he immediately changed the subject and began talking about how various entities were deliberately provoking him into losing his temper and acting in anger. -The patient tells us that he is using the fact that he has been given intramuscular medications against his will as evidence of our being the "dupes" or agents of the entities behind the conspiracy to silence him. He also reiterates that he believes that taking medication voluntarily is tantamount to acknowledging his need for psychiatric treatment, and he tells us that he has absolutely no psychiatric problem at all and does not need any treatment. -Today, we are increasing his olanzapine's as follows. We will begin olanzapine ODT 10 mg at bedtime starting tonight. We have also changed his order for medications over objection to olanzapine 10 mg IM daily for refusal of p.o. olanzapine. -Although the patient's presentation has many of the symptoms of a delusional disorder, persecutory typegiven the elaborate nature of the delusional system, we continue to suspect that what we are seeing is a somewhat atypical jorge, or discrete manic episodes overlaying a underlying delusional disorder. If the explanation for the patient's presentation is symptoms of a manic episode, his prognosis is better. We discussed the possibility of adding an antiobsessional medication which sometimes helps with pure delusional disorders, but the patient says that, absolutely, he will not take any medication that we offer him voluntarily. 11/22--continue Zyprexa IM hs, continues to refuse family meeting with due to paranoia, refuses 2-3 trial of PO Invega to convert to injectable. 11/23--File for 304 hearing d/t ongoing psychosis, lack of insight, refusal for outpatient treatment or ongoing medication, refusal to involve , and high risk for return to violent behavior if home w/ , whom he believes is part of the conspiracy against him. 11/24 - Continue olanzapine IM, continuing to offer patient PO medication which he is consistently refusing - Pt continues to refuse to involve in conversations regarding discharge and safety planning - 304 hearing scheduled for 11/30; pt continues to be psychotic and remains unable to engage in productive safety and discharge planing, therefore remains at high risk of harm to sefl or others if he is discharged home in his current state 11/25 - Titrating olanzapine to 10mg daily; patient continues to refuse offer for PO and is therefore continuing to receive IM injections each evening - 304 hearing 11/30; pt continues to be unwilling to participate in safety and discharge planning efforts 11/26 -The patient tells me that he received olanzapine 10 mg last evening and says that he feels that it has helped him sleep better. However, he notes that his sleep difficulty is related to the fact that his sleep schedule in the hospital is substantially different from the one that he is used to at home, with bedtime here at the hospital being 3 or 4 hours earlier than he is used to. Nevertheless, he says that he believes that he is not having any side effects from olanzapine and that, in the sense that it does help him fall asleep, it helps. Nevertheless, he also repeats today that he will not continue to take any medication, including olanzapine, if he is discharged. -I spoke with the patient's today, without disclosing any protected clinical data regarding the patient. She acknowledges that he frightens her, and, particularly recently, has caused her to fear for her personal physical safety. At the same time, she says tells me that she thinks that if she gets some advice about how best to "handle somebody who is delusional" possibly by getting into individual therapy, herself, she may be able to take him home. She also reports that should he be released (she is aware of upcoming hearing) that she will agree to take him home, because she loves him and wants to protect him, but continues to fear that he may again lose control of his behavior as a function of his delusions. -Today, the patient tells me that he recognizes that in his upcoming hearing on 11/30 (304) the issue may boil down to whether he can assure that he will be safe in the community and will not represent a risk to anyone else, even if he does not take medication. He also says that he recognizes the "Catch-22" that he is in because he realizes that the hospital is likely to say that his behavior in the hospital has been positively influenced by his taking olanzapine, and that without the structure of the hospital and without the medications, he may revert to the dangerous behaviors that precipitated the admission. -Of concern is the fact that the patient's tells us today that, effective yesterday, he has told her that he will no longer speak to her telephonically, and if he is released from the hospital on Saturday he will simply walk home, and if she is not comfortable being home with him she should leave. However, by the end of today he is allowing that he truly believes that his loves him and would not try to harm him if she had any choice, so he is at least considering contacting her again by telephone. 11/27 -Patient informed of 304 hearing and plan to refer to the [facility], as well as additional labs needed for that referral. -He continues to refuse a family meeting with his , who has expressed ongoing concern for her safety. He continues to refuse p.o. medication, outpatient treatment, and discussion of his aggression at home or plans to mitigate it. He remains at risk of harm to others, particularly his , and if discharged prematurely, as she is implicated in his delusion and he believes she has part of the conspiracy against him. -Encourage the patient to attend groups and focus on his own emotional reaction to his perception of events, healthy coping skills, and a discharge safety plan; all of which thus far he has been unwilling to do. 11/28 - 11/29 -Patient refused PPD, EKG, and chest x-ray for [facility] hospital referral. He is refusing to consider a trial of Invega/MERCADO, and continues to refuse a family meeting. -304 involuntary commitment hearing scheduled for 12/01/2019, and will then pursue referral to the [facility]. 11/30 - 304 involuntary commitment granted today, referral to the [facility] is reportedly supported by the [facility] at this time - Pt was again offered PPD, EKG and CXR for [facility] hospital referral, which he again declined - Although he is not overtly refusing medication changes, he does verbalize desire to give olanzapine "another week" before switching to another agent. 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 He remains delusional and without insight, refusing medication (although getting the IM of Zyprexa daily), a family meeting, or discharge planning/outpatient care. -Recommend referral to [facility] for long-term inpatient treatment, will simultaneously referring for a BCM and working on potential diversion plans. 12/02 - Continue IM olanzapine - as continues to refuse oral medications or discussion regarding alternative agents - Most documentation sent to [facility] for referral - awaiting 303 and 304 findings to be sent and will then fax these as well - Pt continues to decline medical tests generally requested as part of [facility] referral, but cannot force these studies to be done 12/03 -We will increase his dose of IM olanzapine to 12.5 mg at bedtime. The medication thus far does not seem to have had much of a favorable impact on the patient's delusional belief system, and he is not willing to consider antiobsessional medications in the form of a selective serotonin reuptake inhibitor. However, the patient is now sleeping better and his general demeanor has been more calm, more pleasant, and more self-possessed. -The patient reports that he does not feel that he is experiencing any side effects from olanzapine, but fall short of saying that it is helping him in any way, other than perhaps for sleep. He mentions that he sometimes has a pain in his left abdominal wall and lower rib cage that he says he does not feel as a side effect from medication but, rather, the result of his doing sit ups and his bedroom by placing his feet under the mattress and exercising in that way. 12/04 - 12/05 -Zyprexa 12.5 mg IM po qhs, sedation from yesterday seems to be resolving, can likely be increased tomorrow. 12/06 - Continue Zyprexa 12.5mg IM this evening - continue attempts to engage patient in conversation regarding dose increases or consideration of alternative agents - Pt continues to be unwilling to participate in conversation regarding alternative discharge plans to state hospitalization. He continues to refuse to involve his or any other outpatient support in safety/discharge planning. - Referral to [facility] was completed and is reportedly being reviewed. 12/07 - Titrating Zyprexa 15mg IM - patient continues to refuse offer for oral medications. Pt was offered discussion about alternative agents, but declined. - Referral officially received by [facility] on 12/02/2019 (304 findings to be sent once received) - awaiting response regarding acceptance decision - Continue attempts to engage patient in discharge and safety planning - patient continues to be unwilling to discuss possible diversion plans 12/08 - Continue Zyprexa 15mg IM - pt continuing to refuse oral medications - Awaiting response from [facility] regarding referral - Pt remains unwilling to participate in safety planning or exploring diversion plan Risk Factors Assessment Male: Yes : Yes Do You Have Access To A Gun?: No ( denies that they have any guns at home) Health Problems: No Mental Health Diagnoses: Yes Substance Use Disorders: No Previous Attempt: No Previous Psychiatric Hospitalization: No Hopelessness: No Smoker: No Protective Factors Assessment : Yes Responsible for Young Children: No Employed: No Stable Relationships: No ( is supportive, but fearful of him due to his violence towards her.) Good Rapport with Provider: No (No outpatient providers.) Interval History Identifying Information SAL MAGANA is a 59-year-old M admitted on 11/14/19 19:58 on a 302 involuntary commitment for paranoia and violence at home, on a 304 extended involuntary commitment as of 11/30. Chief Complaint "I'm feeling really tired." Review of Systems Notes Constitutional: reports fatigue today Cardiovascular: denied Respiratory: denied Gastrointestinal: denied Neurological: denied Psychiatric: denies symptoms other than stated above Total of at least 10 systems reviewed, pertinent positives as above and in HPI. Sleep Information Total Hours of Sleep: 6 Sleep Comments: pt on q-15 minute checks Meal Information Percent Meal Consumed - Breakfast: 100 Percent Meal Consumed - Lunch: 100 Percent Meal Consumed - Dinner: 100 Nutrition Comment: per meal record Subjective Subjective Patient was seen & assessed and interval progress reviewed with treatment team. Staff report the patient continues to occupy his time with mathematical equations. He continues to refuse group programming. Pt refusing efforts to explore safety/discharge planning. Pt was seen today to assess progress since admission. Multiple attempts were made to meet with the patient today. He declined initial visit, as he reported he is rather tired. Pt was only minimally cooperative with additional attempts at conversation. He did admit to feeling "really tired" today, but declined to comment on how he was doing otherwise. He responded to most questions asked by this provider with "I don't have anything to say about that." Pt denied side effects from titration of olanzapine other than fatigue. He declined to participate in further conversation with this provider today. Physical Exam Psychiatric Orientation: alert and + guarded (superficially cooperative, limited willingness for conversation) Apperance: appropriately dressed (casually, wearing same clothes for several days) and + disheveled Eye Contact: + fair eye contact Motor Behavior: no abnormal motor movements (observed while sitting, reclined in bed) Speech: normal rate/rhythm/volume of speech (only brief responses to questions) Affect: + blunted affect (appearing fatigued ) Limited information available regarding thought process, as patient rather unwilling for conversation today. Thought Content: + delusions and + persecution Limited information available regarding thought content, as patient rather unwilling for conversation today Suicidal Thoughts: denies suicidal thoughts Homicidal Thoughts: denies homicidal thoughts Cognition: attention grossly intact and language grossly intact Estimated Intelligence: consistent with education level Insight: + severely impaired insight Judgement: + poor judgement Vital Signs (Past 24 Hours) Last Vital Signs Temp 36.7 C 12/09/19 06:43 Pulse 73 12/09/19 06:46 Resp 18 12/09/19 06:43 BP 120/69 12/09/19 06:46 Pulse Ox 98 11/14/19 20:15 Results & Data ([facility]) Current Inpatient Medications Current Inpatient Medications: Current Inpatient Medications Acetaminophen (Tylenol) 650 mg PO Q4H PRN PRN Reason: Headache or Minor Fever Stop: 12/14/19 20:43 Al Hydrox/Mg Hydrox/Simethicone (Maalox) 30 ml PO Q4H PRN PRN Reason: GI Upset Stop: 12/14/19 20:43 Bismuth Subsalicylate (Kaopectate) 15 ml PO PRN PRN PRN Reason: Loose Stool Stop: 12/14/19 20:43 Haloperidol (Haldol) 5 mg PO Q8H PRN PRN Reason: agitation/psychosis Stop: 12/15/19 09:59 Haloperidol Lactate (Haldol) 5 mg IM Q8H PRN PRN Reason: for behavioral emergency Stop: 12/15/19 09:50 Hydroxyzine HCl (Vistaril) 50 mg PO HSZ PRN PRN Reason: Insomnia Stop: 12/14/19 20:43 Hydroxyzine HCl (Vistaril) 25 mg PO Q4H PRN PRN Reason: Anxiety Stop: 12/14/19 20:43 Lorazepam (Ativan) 1 mg PO Q8H PRN PRN Reason: Anxiety/irritability Stop: 12/15/19 09:52 Magnesium Hydroxide (Milk Of Magnesia) 30 ml PO DAILY PRN PRN Reason: Constipation Stop: 12/14/19 20:43 Olanzapine (Zyprexa Zydis Od) 10 mg PO HS ADRIANE Stop: 12/20/19 21:59 Last Admin: 12/08/19 22:15 Dose: Not Given Documented by: Olanzapine (Zyprexa) 15 mg IM HS PRN PRN Reason: Refusal of PO Olanzapine Stop: 01/03/20 21:59 Last Admin: 12/08/19 22:15 Dose: 15 mg Documented by: Sodium Chloride ([place] Nasal) 1 - 2 sprays NA PRN PRN PRN Reason: Nasal Dryness/Congestion Stop: 12/14/19 20:43 Last Admin: 11/20/19 23:10 Dose: 2 sprays Documented by: Post Discharge Appointments Primary Care Physician Name Of Family Doctor: [facility] - Dr. Jeffrey Torres Primary Care Provider Appointment Comment: [address], [address], [place] [address] Other #1: Name of Aftercare Appointment: [facility] [employer] Equipment Operator - Preeti Kelly Phone Number of Aftercare Appointment: [phone] Contact Information Discharge Discharge Address: [address] [place] [address], [address], [place] [address]
[2019-12-09] MEDS: OLANZAPINE ZYDIS 10 MG ORALLY DIS. TAB PO SCH (23:31)
--- NOTE | 2019-12-10 08:50 | Psychiatric Progress Note ---
Date of Service December 10, 2019 Impression / Recommendations Impression 59-year-old male admitted involuntarily for inpatient psychiatric treatment. Primary diagnosis of delusional disorder, persecutory type. Information provided by his indicates that several years ago certain changes in his department at the [facility] triggered a certain amount of distrust by the patient, which gradually grew into the elaborate, highly systematized delusional belief system that is currently in place. His delusional system was likely amplified by his tendency to obsess, focus on patterns, and look for theoretical explanations. While patient is highly attached to these delusional beliefs and is demonstrating inability/unwillingness to consider they may not be accurate - the primary safety concern surrounding his condition is the fact that he had been demonstrating highly agitated behavior which was threatening the safety of himself and his (throwing furniture at [place], ripping off door frames, etc). Although his behavior on the unit has been free of threats and violence, he is refusing to involve his , who reports fear for her safety given his behavior (violence directed at her prior to admission) and the fact that he has implicated her in his delusional system and believes she is conspiring within [place] government against him. Further, he is uncooperative with treatment, is refusing medication (although not resisting when given intramuscular injections of olanzapine), and declining outpatient treatment. This is a difficult and complex situation. The patient's dyscontrol behavior does not seem to be specific to his , and even were he to leave the hospital without going home to his , the behaviors described by his give reason to predict that he would quickly become a danger to himself or other people in the community. He lacks insight, and expresses a firm belief that he is on a mission to protect and save innocent people. His calmer behavior here is also within the context of his taking psychiatric medications, and he has made it abundantly clear that he will not consider taking any psychiatric medication unless it is forced on him in the hospital. 304 extended involuntarily commitment was granted on 11/30, and referral to the [facility] has been sent as he remains a danger to himself and others and is refusing to engage in conversation regarding alternative discharge options. (1) Delusional disorder: 11/14 Patient admitted on an involuntary status to the behavioral health unit for continued assessment and treatment as indicated He will be maintained on every 15 minute safety checks We will continue to expand database Consider neuroimaging for w/u of psychosis prn orders for Ativan and Haldol today. I suspect it is likely that he will require medications over objection before he permits any treatment due to what appears to be severely impaired insight. Patient will be reevaluated tomorrow for psychiatric second opinion regarding need for treatment over objection. -presently patient requires continued inpatient hospitalization for workup and treatment of psychosis which was been recently associated with some violent behavior at home. he is at risk of harm to self and others if discharged prematurely. 11/15 -File for 303 involuntary commitment. -Patient is refusing to consider medication, but has haloperidol and Ativan as needed ordered. Would recommend a trial of olanzapine, and agree with medications over objection as he has severe psychotic symptoms which are impairing his ability to function and placing both himself and others at risk of harm due to his violent behavior at home. -Patient is refused to answer questions about whether or not he has guns, so we will need to get this information from his . At this point he is refusing to sign a release for her or anyone else. -Excuse patient from groups due to the severity of his psychosis and violent behavior. Medically necessary private room room due to the same. 11/16 -303 involuntary commitment granted. -Patient continues to refuse to allow his to be involved in treatment. He is now not denying that he was aggressive at home, but is refusing to discuss it, and is focused only on the conspiracy which he says led to his behavior. -Continue to consider medications over objection. At this point, we are attempting to engage the patient in treatment volitionally, and the risk of forcing medications at this time is further alienating him. However, if he is unable to engage in any manner, we will need to reconsider medications over objection. -Patient may attend groups if able to maintain appropriate behavioral control. -Patient has still not been willing to complete admission assessments, and has not been willing to provide certain information. 11/17 -Recommend medications over objection, as the patient is unable to engage in treatment due to the severity of his psychosis and lack of insight, and remains at imminent risk of harm to others, specifically his , if his symptoms remain untreated. He is floridly delusional, now implicating hospital staff in his delusions. He is not able to work as a result of his psychosis, and his is not able to work due to having to supervise him, and is fearful of him given his escalating violence at home. He continues to refuse to allow her to be involved in treatment, is not attending groups, and is refusing to even discuss medication options. Dr. Duarte recommended medications over objection, and I agree, as the patient is unlikely to improve without antipsychotic medication. -Start olanzapine Zydis 5 mg daily, with a 5 mg IM backup for refusal. Order FLP and FG tomorrow for baseline on an atypical antipsychotic. He will also need a medical work-up of psychosis once he is more cooperative, including brain MRI. -Ongoing poor sleep, staff will limit bright lights near his room at night, and if he can be compliant with medication, can move olanzapine to bedtime to assist with sleep. Giving during the day initially to allow for adequate staff in case of need for physical hold or restraint to receive medication. / - Continue olanzapine 5mg daily (offering PO Zydis with IM for refusal) - medications over objection, though patient has been cooperative with his preference for IM administration - Pt offered again PO olanzapine, with the eventual option of converting the medication to HS dosing if he continues to be cooperative - as he reports sedation after receiving the medication - Pt remains delusional and paranoid, unable to discuss examples of how we can assist him during his stay - Maintain MNPR due to level of psychosis - Fasting glucose - wnl at 90; triglycerides elevated at 188, remainder of lipid panel wnl - Continue attempts to coordinate care with patient's 11/19 -Patient is continuing to say that he does not wish for us to speak with his , and he again tells us that he will not sign a consent that will allow us to contact her. As above, his assertion is that he does not want us talking to her because she may tell us things that we will include in the record and that will eventually be used against him, either by the government or by [facility]. As a compromise, the patient says that he will ask his to call us and tell us whether she continues to feel that he is a danger to her, himself, or to anyone else. It was explained that we would also need to be able to talk to her about our concerns and we would need to coordinate aftercare arrangements with her. The patient replied to that by saying simply that he would not allow us to say anything about his care or recommended treatment to her at this time. -There seem to be some early indications that the patient may be responding to olanzapine. Today, when I told him that our concerns about his safety had not to do with his behaviors here in the hospital but, instead, about his behaviors at home (in the community) he quickly responded, "yes, but I am getting medication here!" (He almost immediately realized the implication of what he had just said, and he immediately changed the subject and began talking about how various entities were deliberately provoking him into losing his temper and acting in anger. -The patient tells us that he is using the fact that he has been given intramuscular medications against his will as evidence of our being the "dupes" or agents of the entities behind the conspiracy to silence him. He also reiterates that he believes that taking medication voluntarily is tantamount to acknowledging his need for psychiatric treatment, and he tells us that he has absolutely no psychiatric problem at all and does not need any treatment. -Today, we are increasing his olanzapine's as follows. We will begin olanzapine ODT 10 mg at bedtime starting tonight. We have also changed his order for medications over objection to olanzapine 10 mg IM daily for refusal of p.o. olanzapine. -Although the patient's presentation has many of the symptoms of a delusional disorder, persecutory typegiven the elaborate nature of the delusional system, we continue to suspect that what we are seeing is a somewhat atypical jorge, or discrete manic episodes overlaying a underlying delusional disorder. If the explanation for the patient's presentation is symptoms of a manic episode, his prognosis is better. We discussed the possibility of adding an antiobsessional medication which sometimes helps with pure delusional disorders, but the patient says that, absolutely, he will not take any medication that we offer him voluntarily. 11/22--continue Zyprexa IM hs, continues to refuse family meeting with due to paranoia, refuses 2-3 trial of PO Invega to convert to injectable. 11/23--File for 304 hearing d/t ongoing psychosis, lack of insight, refusal for outpatient treatment or ongoing medication, refusal to involve , and high risk for return to violent behavior if home w/ , whom he believes is part of the conspiracy against him. 11/24 - Continue olanzapine IM, continuing to offer patient PO medication which he is consistently refusing - Pt continues to refuse to involve in conversations regarding discharge and safety planning - 304 hearing scheduled for 11/30; pt continues to be psychotic and remains unable to engage in productive safety and discharge planing, therefore remains at high risk of harm to sefl or others if he is discharged home in his current state 11/25 - Titrating olanzapine to 10mg daily; patient continues to refuse offer for PO and is therefore continuing to receive IM injections each evening - 304 hearing 11/30; pt continues to be unwilling to participate in safety and discharge planning efforts 11/26 -The patient tells me that he received olanzapine 10 mg last evening and says that he feels that it has helped him sleep better. However, he notes that his sleep difficulty is related to the fact that his sleep schedule in the hospital is substantially different from the one that he is used to at home, with bedtime here at the hospital being 3 or 4 hours earlier than he is used to. Nevertheless, he says that he believes that he is not having any side effects from olanzapine and that, in the sense that it does help him fall asleep, it helps. Nevertheless, he also repeats today that he will not continue to take any medication, including olanzapine, if he is discharged. -I spoke with the patient's today, without disclosing any protected clinical data regarding the patient. She acknowledges that he frightens her, and, particularly recently, has caused her to fear for her personal physical safety. At the same time, she says tells me that she thinks that if she gets some advice about how best to "handle somebody who is delusional" possibly by getting into individual therapy, herself, she may be able to take him home. She also reports that should he be released (she is aware of upcoming hearing) that she will agree to take him home, because she loves him and wants to protect him, but continues to fear that he may again lose control of his behavior as a function of his delusions. -Today, the patient tells me that he recognizes that in his upcoming hearing on 11/30 (304) the issue may boil down to whether he can assure that he will be safe in the community and will not represent a risk to anyone else, even if he does not take medication. He also says that he recognizes the "Catch-22" that he is in because he realizes that the hospital is likely to say that his behavior in the hospital has been positively influenced by his taking olanzapine, and that without the structure of the hospital and without the medications, he may revert to the dangerous behaviors that precipitated the admission. -Of concern is the fact that the patient's tells us today that, effective yesterday, he has told her that he will no longer speak to her telephonically, and if he is released from the hospital on Saturday he will simply walk home, and if she is not comfortable being home with him she should leave. However, by the end of today he is allowing that he truly believes that his loves him and would not try to harm him if she had any choice, so he is at least considering contacting her again by telephone. 11/27 -Patient informed of 304 hearing and plan to refer to the [facility], as well as additional labs needed for that referral. -He continues to refuse a family meeting with his , who has expressed ongoing concern for her safety. He continues to refuse p.o. medication, outpatient treatment, and discussion of his aggression at home or plans to mitigate it. He remains at risk of harm to others, particularly his , and if discharged prematurely, as she is implicated in his delusion and he believes she has part of the conspiracy against him. -Encourage the patient to attend groups and focus on his own emotional reaction to his perception of events, healthy coping skills, and a discharge safety plan; all of which thus far he has been unwilling to do. 11/28 - 11/29 -Patient refused PPD, EKG, and chest x-ray for [facility] referral. He is refusing to consider a trial of Invega/MERCADO, and continues to refuse a family meeting. -304 involuntary commitment hearing scheduled for 12/01/2019, and will then pursue referral to the [facility]. 11/30 - 304 involuntary commitment granted today, referral to the [facility] is reportedly supported by the [facility] at this time - Pt was again offered PPD, EKG and CXR for [facility] referral, which he again declined - Although he is not overtly refusing medication changes, he does verbalize desire to give olanzapine "another week" before switching to another agent. 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 He remains delusional and without insight, refusing medication (although getting the IM of Zyprexa daily), a family meeting, or discharge planning/outpatient care. -Recommend referral to [facility] for long-term inpatient treatment, will simultaneously referring for a BCM and working on potential diversion plans. 12/02 - Continue IM olanzapine - as continues to refuse oral medications or discussion regarding alternative agents - Most documentation sent to [facility] for referral - awaiting 303 and 304 findings to be sent and will then fax these as well - Pt continues to decline medical tests generally requested as part of [facility] referral, but cannot force these studies to be done 12/03 -We will increase his dose of IM olanzapine to 12.5 mg at bedtime. The medication thus far does not seem to have had much of a favorable impact on the patient's delusional belief system, and he is not willing to consider antiobsessional medications in the form of a selective serotonin reuptake inhibitor. However, the patient is now sleeping better and his general demeanor has been more calm, more pleasant, and more self-possessed. -The patient reports that he does not feel that he is experiencing any side effects from olanzapine, but fall short of saying that it is helping him in any way, other than perhaps for sleep. He mentions that he sometimes has a pain in his left abdominal wall and lower rib cage that he says he does not feel as a side effect from medication but, rather, the result of his doing sit ups and his bedroom by placing his feet under the mattress and exercising in that way. 12/04 - 12/05 -Zyprexa 12.5 mg IM po qhs, sedation from yesterday seems to be resolving, can likely be increased tomorrow. 12/06 - Continue Zyprexa 12.5mg IM this evening - continue attempts to engage patient in conversation regarding dose increases or consideration of alternative agents - Pt continues to be unwilling to participate in conversation regarding alternative discharge plans to state hospitalization. He continues to refuse to involve his or any other outpatient support in safety/discharge planning. - Referral to [facility] was completed and is reportedly being reviewed. 12/07 - Titrating Zyprexa 15mg IM - patient continues to refuse offer for oral medications. Pt was offered discussion about alternative agents, but declined. - Referral officially received by [facility] on 12/02/2019 (304 findings to be sent once received) - awaiting response regarding acceptance decision - Continue attempts to engage patient in discharge and safety planning - patient continues to be unwilling to discuss possible diversion plans 12/08 - 12/09 - Continue Zyprexa 15mg IM - pt continuing to refuse oral medications - Awaiting response from [facility] regarding referral - Pt remains unwilling to participate in safety planning or exploring divers ion plan Risk Factors Assessment Male: Yes : Yes Do You Have Access To A Gun?: No ( denies that they have any guns at home) Health Problems: No Mental Health Diagnoses: Yes Substance Use Disorders: No Previous Attempt: No Previous Psychiatric Hospitalization: No Hopelessness: No Smoker: No Protective Factors Assessment : Yes Responsible for Young Children: No Employed: No Stable Relationships: No ( is supportive, but fearful of him due to his violence towards her.) Good Rapport with Provider: No (No outpatient providers.) Interval History Identifying Information SAL MAGANA is a 59-year-old M admitted on 11/14/19 19:58 on a 302 involuntary commitment for paranoia and violence at home, on a 304 extended involuntary commitment as of 11/30. Chief Complaint "This lobotomy you are trying to give me with the medication that makes me sleep 15 plus hours a day is really working. Good for you." Review of Systems Notes Limited willingness to participate in discussion today. Pt does indicate increased fatigue and prolonged sleep. He denies other physical compaints. Sleep Information Total Hours of Sleep: 6.5 Sleep Comments: pt on q-15 minute checks Meal Information Percent Meal Consumed - Breakfast: 100 Percent Meal Consumed - Lunch: 100 Percent Meal Consumed - Dinner: 100 Nutrition Comment: per meal record Subjective Subjective Patient was seen & assessed and interval progress reviewed with nursing and social work. Staff report the patient has been more isolative and in bed more frequently, though remains pleasant and cooperative with staff. He continues to refuse groups or conversations regarding discharge planning. Pt was seen today to assess progress since admission. Pt states that he is "tired, I just woke up." Pt then states "this lobotomy you are trying to give me with the medication that makes me sleep 15 plus hours a day is really working. Good for you." Pt was informed that our intention is not to make him sedated, but that it is felt that medications are an essential part of his treatment plan. He remains uninterested in discussing other medication options. Pt was asked about his mood, to which he states "It's no different." He declines to talk any further about his psychiatric symptoms. Pt was offered to attend group programming, as the remainder of the milieu is engaged in a game. He states "I won't, but you're more than welcome to go join them." Pt then states, "I have nothing more to say to you." He did deny other needs or questions at this time. Physical Exam Psychiatric Orientation: alert and + guarded (uncooperative, unwilling to engage in substantial conversation ) Apperance: appropriately dressed (wearing same clothes for most of admission) and + disheveled (hair is long and unkempt) Eye Contact: + poor eye contact (seems to be avoiding direct eye contact) Motor Behavior: no abnormal motor movements (observed while sitting on floor, had been doing yoga prior to encounter) Speech: normal rate/rhythm/volume of speech (soft tone, only brief responses to questions) Affect: + flat affect (appearing defeated) Mood: no depressed mood ("no different") Thought Content: + paranoid, + delusions and + persecution Cognition: attention grossly intact and language grossly intact Estimated Intelligence: consistent with education level Insight: + severely impaired insight Judgement: + poor judgement Vital Signs (Past 24 Hours) Last Vital Signs Temp 36.7 C 12/10/19 06:47 Pulse 73 12/10/19 06:47 Resp 16 12/10/19 06:47 BP 113/71 12/10/19 06:47 Pulse Ox 98 11/14/19 20:15 Results & Data ([facility]) Current Inpatient Medications Current Inpatient Medications: Current Inpatient Medications Acetaminophen (Tylenol) 650 mg PO Q4H PRN PRN Reason: Headache or Minor Fever Stop: 12/14/19 20:43 Al Hydrox/Mg Hydrox/Simethicone (Maalox) 30 ml PO Q4H PRN PRN Reason: GI Upset Stop: 12/14/19 20:43 Bismuth Subsalicylate (Kaopectate) 15 ml PO PRN PRN PRN Reason: Loose Stool Stop: 12/14/19 20:43 Haloperidol (Haldol) 5 mg PO Q8H PRN PRN Reason: agitation/psychosis Stop: 12/15/19 09:59 Haloperidol Lactate (Haldol) 5 mg IM Q8H PRN PRN Reason: for behavioral emergency Stop: 12/15/19 09:50 Hydroxyzine HCl (Vistaril) 50 mg PO HSZ PRN PRN Reason: Insomnia Stop: 12/14/19 20:43 Hydroxyzine HCl (Vistaril) 25 mg PO Q4H PRN PRN Reason: Anxiety Stop: 12/14/19 20:43 Lorazepam (Ativan) 1 mg PO Q8H PRN PRN Reason: Anxiety/irritability Stop: 12/15/19 09:52 Magnesium Hydroxide (Milk Of Magnesia) 30 ml PO DAILY PRN PRN Reason: Constipation Stop: 12/14/19 20:43 Olanzapine (Zyprexa Zydis Od) 10 mg PO HS ADRIANE Stop: 12/20/19 21:59 Last Admin: 12/09/19 23:31 Dose: Not Given Documented by: Olanzapine (Zyprexa) 15 mg IM HS PRN PRN Reason: Refusal of PO Olanzapine Stop: 01/03/20 21:59 Last Admin: 12/08/19 22:15 Dose: 15 mg Documented by: Sodium Chloride (Leonard Nasal) 1 - 2 sprays NA PRN PRN PRN Reason: Nasal Dryness/Congestion Stop: 12/14/19 20:43 Last Admin: 11/20/19 23:10 Dose: 2 sprays Documented by: Post Discharge Appointments Primary Care Physician Name Of Family Doctor: [facility] - Dr. Jeffrey Torres Primary Care Provider Appointment Comment: [id number], [address], [place] [address] Other #1: Name of Aftercare Appointment: [facility] General - Preeti Kelly Phone Number of Aftercare Appointment: [phone] Contact Information Discharge Discharge Address: [address] [place] [address], [address], [place] [address]
[2019-12-10] MEDS: OLANZapine 10 MG/2.1 ML SDV IM PRN (22:09)
[2019-12-10] MEDS: OLANZAPINE ZYDIS 10 MG ORALLY DIS. TAB PO SCH (22:11)
[2019-12-11] MEDS ORDERED: Nursing to Pharmacy Communication ONE (14:48)
--- NOTE | 2019-12-11 16:02 | Psychiatric Progress Note ---
Date of Service December 11, 2019 Impression / Recommendations Impression 59-year-old male admitted involuntarily for inpatient psychiatric treatment. Primary diagnosis of delusional disorder, persecutory type. Information provided by his indicates that several years ago certain changes in his department at the [employer] triggered a certain amount of distrust by the patient, which gradually grew into the elaborate, highly systematized delusional belief system that is currently in place. His delusional system was likely amplified by his tendency to obsess, focus on patterns, and look for theoretical explanations. While patient is highly attached to these delusional beliefs and is demonstrating inability/unwillingness to consider they may not be accurate - the primary safety concern surrounding his condition is the fact that he had been demonstrating highly agitated behavior which was threatening the safety of himself and his (throwing furniture at mckeon, ripping off door frames, etc). Although his behavior on the unit has been free of threats and violence, he is refusing to involve his , who reports fear for her safety given his behavior (violence directed at her prior to admission) and the fact that he has implicated her in his delusional system and believes she is conspiring within [place] government against him. Further, he is uncooperative with treatment, is refusing medication (although not resisting when given intramuscular injections of olanzapine), and declining outpatient treatment. This is a difficult and complex situation. The patient's dyscontrol behavior does not seem to be specific to his , and even were he to leave the hospital without going home to his , the behaviors described by his give reason to predict that he would quickly become a danger to himself or other people in the community. He lacks insight, and expresses a firm belief that he is on a mission to protect and save innocent people. His calmer behavior here is also within the context of his taking psychiatric medications, and he has made it abundantly clear that he will not consider taking any psychiatric medication unless it is forced on him in the hospital. 304 extended involuntarily commitment was granted on 11/30, and referral to the [facility] has been sent as he remains a danger to himself and others and is refusing to engage in conversation regarding alternative discharge options. As time has progressed, it appears that he is not responding favorably to olanzapine. He continues to adamantly refuse any type of psychotropic medication voluntarily. At his dose of olanzapine 15 mg intramuscularly at bedtime the patient's behavior remains pleasant, generally cooperative (with everything except psychiatric treatments, apart from individual encounters), nonthreatening, and fairly passive. However, his delusional belief system remains completely untouched as best we can tell, and he is now exhibiting evidence of some excess sedation with hypersomnolence during the day and the need to take frequent naps. The patient reports that he feels somewhat cognitively clouded by the medication and notes, for example, he is having difficulty concentrating and focusing on the mathematical equations that he has been using since admission as a way of relaxing. There is no evidence of any organicity, apart from medication side effects, the patient remains fully oriented, able to think in the abstract, and able to demonstrate good immediate, short-term and long-term memory. We have talked to her many times about perhaps switching to an oral medication that might help more with his obsessive qualities, such as fluoxetine, but, as above, he absolutely insists that he will not take any medication voluntarily and, to the contrary, he says that he is "very willing" to be forced to take medication because this, in his mind, is the equivalent of a "chemical lobotomy" and that those persons who are forcing him to take medications will be identified as contributing to the effort to silence him, once he is able to publish his expose. (1) Delusional disorder: 11/14 Patient admitted on an involuntary status to the behavioral health unit for continued assessment and treatment as indicated He will be maintained on every 15 minute safety checks We will continue to expand database Consider neuroimaging for w/u of psychosis prn orders for Ativan and Haldol today. I suspect it is likely that he will require medications over objection before he permits any treatment due to what appears to be severely impaired insight. Patient will be reevaluated tomorrow for psychiatric second opinion regarding need for treatment over objection. -presently patient requires continued inpatient hospitalization for workup and treatment of psychosis which was been recently associated with some violent behavior at home. he is at risk of harm to self and others if discharged prematurely. 11/15 -File for 303 involuntary commitment. -Patient is refusing to consider medication, but has haloperidol and Ativan as needed ordered. Would recommend a trial of olanzapine, and agree with medications over objection as he has severe psychotic symptoms which are impairing his ability to function and placing both himself and others at risk of harm due to his violent behavior at home. -Patient is refused to answer questions about whether or not he has guns, so we will need to get this information from his . At this point he is refusing to sign a release for her or anyone else. -Excuse patient from groups due to the severity of his psychosis and violent behavior. Medically necessary private room room due to the same. 11/16 - involuntary commitment granted. -Patient continues to refuse to allow his to be involved in treatment. He is now not denying that he was aggressive at home, but is refusing to discuss it, and is focused only on the conspiracy which he says led to his behavior. -Continue to consider medications over objection. At this point, we are attempting to engage the patient in treatment volitionally, and the risk of forcing medications at this time is further alienating him. However, if he is unable to engage in any manner, we will need to reconsider medications over objection. -Patient may attend groups if able to maintain appropriate behavioral control. -Patient has still not been willing to complete admission assessments, and has not been willing to provide certain information. 11/17 -Recommend medications over objection, as the patient is unable to engage in treatment due to the severity of his psychosis and lack of insight, and remains at imminent risk of harm to others, specifically his , if his symptoms remain untreated. He is floridly delusional, now implicating hospital staff in his delusions. He is not able to work as a result of his psychosis, and his is not able to work due to having to supervise him, and is fearful of him given his escalating violence at home. He continues to refuse to allow her to be involved in treatment, is not attending groups, and is refusing to even discuss medication options. Dr. Duarte recommended medications over objection, and I agree, as the patient is unlikely to improve without antipsychotic medication. -Start olanzapine Zydis 5 mg daily, with a 5 mg IM backup for refusal. Order FLP and FG tomorrow for baseline on an atypical antipsychotic. He will also need a medical work-up of psychosis once he is more cooperative, including brain MRI. -Ongoing poor sleep, staff will limit bright lights near his room at night, and if he can be compliant with medication, can move olanzapine to bedtime to assist with sleep. Giving during the day initially to allow for adequate staff in case of need for physical hold or restraint to receive medication. 11/18 - Continue olanzapine 5mg daily (offering PO Zydis with IM for refusal) - medications over objection, though patient has been cooperative with his preference for IM administration - Pt offered again PO olanzapine, with the eventual option of converting the medication to HS dosing if he continues to be cooperative - as he reports sedation after receiving the medication - Pt remains delusional and paranoid, unable to discuss examples of how we can assist him during his stay - Maintain MNPR due to level of psychosis - Fasting glucose - wnl at 90; triglycerides elevated at 188, remainder of lipid panel wnl - Continue attempts to coordinate care with patient's 11/19 -Patient is continuing to say that he does not wish for us to speak with his , and he again tells us that he will not sign a consent that will allow us to contact her. As above, his assertion is that he does not want us talking to her because she may tell us things that we will include in the record and that will eventually be used against him, either by the government or by [facility]. As a compromise, the patient says that he will ask his to call us and tell us whether she continues to feel that he is a danger to her, himself, or to anyone else. It was explained that we would also need to be able to talk to her about our concerns and we would need to coordinate aftercare arrangements with her. The patient replied to that by saying simply that he would not allow us to say anything about his care or recommended treatment to her at this time. -There seem to be some early indications that the patient may be responding to olanzapine. Today, when I told him that our concerns about his safety had not to do with his behaviors here in the hospital but, instead, about his behaviors at home (in the community) he quickly responded, "yes, but I am getting medication here!" (He almost immediately realized the implication of what he had just said, and he immediately changed the subject and began talking about how various entities were deliberately provoking him into losing his temper and acting in anger. -The patient tells us that he is using the fact that he has been given intramuscular medications against his will as evidence of our being the "dupes" or agents of the entities behind the conspiracy to silence him. He also reiterates that he believes that taking medication voluntarily is tantamount to acknowledging his need for psychiatric treatment, and he tells us that he has absolutely no psychiatric problem at all and does not need any treatment. -Today, we are increasing his olanzapine's as follows. We will begin olanzapine ODT 10 mg at bedtime starting tonight. We have also changed his order for medications over objection to olanzapine 10 mg IM daily for refusal of p.o. olanzapine. -Although the patient's presentation has many of the symptoms of a delusional disorder, persecutory typegiven the elaborate nature of the delusional system, we continue to suspect that what we are seeing is a somewhat atypical jorge, or discrete manic episodes overlaying a underlying delusional disorder. If the explanation for the patient's presentation is symptoms of a manic episode, his prognosis is better. We discussed the possibility of adding an antiobsessional medication which sometimes helps with pure delusional disorders, but the patient says that, absolutely, he will not take any medication that we offer him voluntarily. 11/22--continue Zyprexa IM hs, continues to refuse family meeting with due to paranoia, refuses 2-3 trial of PO Invega to convert to injectable. 11/23--File for 304 hearing d/t ongoing psychosis, lack of insight, refusal for outpatient treatment or ongoing medication, refusal to involve , and high risk for return to violent behavior if home w/ , whom he believes is part of the conspiracy against him. 11/24 - Continue olanzapine IM, continuing to offer patient PO medication which he is consistently refusing - Pt continues to refuse to involve in conversations regarding discharge and safety planning - 304 hearing scheduled for 11/30; pt continues to be psychotic and remains unable to engage in productive safety and discharge planing, therefore remains at high risk of harm to sefl or others if he is discharged home in his current state 11/25 - Titrating olanzapine to 10mg daily; patient continues to refuse offer for PO and is therefore continuing to receive IM injections each evening - 304 hearing 11/30; pt continues to be unwilling to participate in safety and discharge planning efforts 11/26 -The patient tells me that he received olanzapine 10 mg last evening and says that he feels that it has helped him sleep better. However, he notes that his sleep difficulty is related to the fact that his sleep schedule in the hospital is substantially different from the one that he is used to at home, with bedtime here at the hospital being 3 or 4 hours earlier than he is used to. Nevertheless, he says that he believes that he is not having any side effects from olanzapine and that, in the sense that it does help him fall asleep, it helps. Nevertheless, he also repeats today that he will not continue to take any medication, including olanzapine, if he is discharged. -I spoke with the patient's today, without disclosing any protected clinical data regarding the patient. She acknowledges that he frightens her, and, particularly recently, has caused her to fear for her personal physical safety. At the same time, she says tells me that she thinks that if she gets some advice about how best to "handle somebody who is delusional" possibly by getting into individual therapy, herself, she may be able to take him home. She also reports that should he be released (she is aware of upcoming hearing) that she will agree to take him home, because she loves him and wants to protect him, but continues to fear that he may again lose control of his behavior as a function of his delusions. -Today, the patient tells me that he recognizes that in his upcoming hearing on 11/30 (304) the issue may boil down to whether he can assure that he will be safe in the community and will not represent a risk to anyone else, even if he does not take medication. He also says that he recognizes the "Catch-22" that he is in because he realizes that the hospital is likely to say that his behavior in the hospital has been positively influenced by his taking olanzapine, and that without the structure of the hospital and without the medications, he may revert to the dangerous behaviors that precipitated the admission. -Of concern is the fact that the patient's tells us today that, effective yesterday, he has told her that he will no longer speak to her telephonically, and if he is released from the hospital on Anastasia he will simply walk home, and if she is not comfortable being home with him she should leave. However, by the end of today he is allowing that he truly believes that his loves him and would not try to harm him if she had any choice, so he is at least considering contacting her again by telephone. 11/27 -Patient informed of 304 hearing and plan to refer to the [facility], as well as additional labs needed for that referral. -He continues to refuse a family meeting with his , who has expressed bunny oing concern for her safety. He continues to refuse p.o. medication, outpatient treatment, and discussion of his aggression at home or plans to mitigate it. He remains at risk of harm to others, particularly his , and if discharged prematurely, as she is implicated in his delusion and he believes she has part of the conspiracy against him. -Encourage the patient to attend groups and focus on his own emotional reaction to his perception of events, healthy coping skills, and a discharge safety plan; all of which thus far he has been unwilling to do. 11/28 - 11/29 -Patient refused PPD, EKG, and chest x-ray for [facility] referral. He is refusing to consider a trial of Invega/MERCADO, and continues to refuse a family meeting. -304 involuntary commitment hearing scheduled for 12/01/2019, and will then pursue referral to the [facility]. 11/30 - 304 involuntary commitment granted today, referral to the [facility] is reportedly supported by the [facility] at this time - Pt was again offered PPD, EKG and CXR for [facility] referral, which he again declined - Although he is not overtly refusing medication changes, he does verbalize desire to give olanzapine "another week" before switching to another agent. Recommendation for an MERACDO, specifically paliperidone, was discussed with patient - who is declining at this time - Pt continues to refuse to involve his in his treatment, her input is specifically requested regarding safety and discharge planning 12/01 -Initially diagnosed with psychosis NOS, but changed to delusional disorder persecutory type after observation and additional information provided by his regarding the evolution of symptoms over time. He remains delusional and without insight, refusing medication (although getting the IM of Zyprexa daily), a family meeting, or discharge planning/outpatient care. -Recommend referral to [facility] for long-term inpatient treatment, will simultaneously referring for a BCM and working on potential diversion plans. 12/02 - Continue IM olanzapine - as continues to refuse oral medications or discussion regarding alternative agents - Most documentation sent to [facility] for referral - awaiting 303 and 304 findings to be sent and will then fax these as well - Pt continues to decline medical tests generally requested as part of [facility] referral, but cannot force these studies to be done 12/03 -We will increase his dose of IM olanzapine to 12.5 mg at bedtime. The medication thus far does not seem to have had much of a favorable impact on the patient's delusional belief system, and he is not willing to consider antiobsessional medications in the form of a selective serotonin reuptake inhibitor. However, the patient is now sleeping better and his general demeanor has been more calm, more pleasant, and more self-possessed. -The patient reports that he does not feel that he is experiencing any side effects from olanzapine, but fall short of saying that it is helping him in any way, other than perhaps for sleep. He mentions that he sometimes has a pain in his left abdominal wall and lower rib cage that he says he does not feel as a side effect from medication but, rather, the result of his doing sit ups and his bedroom by placing his feet under the mattress and exercising in that way. 12/04 - 12/05 -Zyprexa 12.5 mg IM po qhs, sedation from yesterday seems to be resolving, can likely be increased tomorrow. 12/06 - Continue Zyprexa 12.5mg IM this evening - continue attempts to engage patient in conversation regarding dose increases or consideration of alternative agents - Pt continues to be unwilling to participate in conversation regarding alternative discharge plans to [facility]. He continues to refuse to involve his or any other outpatient support in safety/discharge planning. - Referral to [facility] was completed and is reportedly being reviewed. 12/07 - Titrating Zyprexa 15mg IM - patient continues to refuse offer for oral medications. Pt was offered discussion about alternative agents, but declined. - Referral officially received by [facility] on 12/02/2019 (304 findings to be sent once received) - awaiting response regarding acceptance decision - Continue attempts to engage patient in discharge and safety planning - patient continues to be unwilling to discuss possible diversion plans 12/08 - 12/09 - Continue Zyprexa 15mg IM - pt continuing to refuse oral medications - Awaiting response from [facility] regarding referral - Pt remains unwilling to participate in safety planning or exploring diversion plan 12/10 -Patient is exhibiting excess sedation add Zyprexa 15 mg IM at bedtime. Specifically, the patient is observed to be hypersomnolent, has been sleeping off and on throughout the days, and indicates that he feels that at this higher dose of Zyprexa he is experiencing some cognitive slowing. At the same time, he does not seem to be responding to Zyprexa either at high doses or at low doses, other than it may be contributing to his ability to maintain self possession and avoid these sorts of dyscontroled behaviors that precipitated the current admission (for example, breaking furniture, knocking holes in the [place]cke[place] of his home, and tearing out shards of woodwork and ways that frightened his ). -The patient remains delusional and harbors an elaborate persecutory delusional system that he often hits that, but is reluctant to discuss in detail much of the time because he says that he fears that information that he shares with us will fall into the wrong hands and will interfere with his ability to expose those persons who he feels are responsible for the referenced "crimes against humanity." -The patient when asked, convincingly states that he is not having any thoughts of extracting retribution from the individuals and entities that he holds responsible for his delusional construct regarding "crimes against humanity," other than to expose them by publishing proof of their crimes. Specifically, he says that he has no plan to cause physical harm to the person or property of others and says that he will leave the question of punishment to those who are lawful he entitled to impose it. -Because the patient's delusional belief seem not to be responding favorably to olanzapine at the higher dose, and because he is exhibiting some symptoms of excess sedation associated with olanzapine at 15 mg daily, his dose of olanzapine (to be given IM if necessary for refusal of p.o. olanzapine) will be reduced to olanzapine 10 mg IM at bedtime, starting tonight. Risk Factors Assessment Male: Yes : Yes Do You Have Access To A Gun?: No ( denies that they have any guns at home) Health Problems: No Mental Health Diagnoses: Yes Substance Use Disorders: No Previous Attempt: No Previous Psychiatric Hospitalization: No Hopelessness: No Smoker: No Protective Factors Assessment : Yes Responsible for Young Children: No Employed: No Stable Relationships: No ( is supportive, but fearful of him due to his violence towards her.) Good Rapport with Provider: No (No outpatient providers.) Interval History Identifying Information SAL MAGANA is a 59-year-old M admitted on 11/14/19 19:58 on a 302 involuntary commitment for paranoia and violence at home, on a 304 extended involuntary commitment as of 11/30. Chief Complaint "I had a nice walk with Andre". Review of Systems Sleep Information Total Hours of Sleep: 4 Sleep Comments: awake at 0345 until 0545 Meal Information Percent Meal Consumed - Breakfast: 100 Percent Meal Consumed - Lunch: 100 Percent Meal Consumed - Dinner: 100 Nutrition Comment: per meal record Subjective Subjective Patient was seen & assessed and interval progress reviewed with treatment team. I met individually with the patient in order to assess his current mental status, evaluate his response to treatment, address any issues, questions and concerns that may arise, and coordinate any necessary changes in the patient's treatment regimen with the patient. Today, the patient tells me that he feels that he had been tolerating olanzapine intramuscularly fairly well until his dose was increased to a dose of 15 mg intramuscularly daily. Specifically, he notes increased sedation, slowed reaction times, and difficulty concentrating and focus on, for example, the mathematical problems that he enjoys working on. The patient notes that he began to notice the above referenced problems at the 12.5 mg dose, but did not notice them at olanzapine 10 mg intramuscularly. For much of today's encounter the patient talked about him using stories that he had heard on the news. At one point, asked him if he had any concerns about his 's safety, alone as she is at their home in [place]. He told me that he had no concerns about her safety, but then said, mysteriously, "I know why I am not concerned about her safety, but I do not wish to discuss it." I reminded him that his assertion was that powerful individuals are seeking to silence him, and so I was wondering-assuming that that were true--why the individuals might not try to use his as a means of compelling his silence. The patient replied, "they would not need to if she was going along with them." I asked him to explain the statement, and he said that he would choose not to. I asked him to tell me why he would choose not to tell me, and, specifically, I asked him if the issue had to do with trust. He smiled and said, "not so much. It is just that I feel that if I say too much it will be used against me." The patient explains that he and his leased an apartment in [place] so that he would have a "safe" and "quiet" place to work, but "soon came to realize" that he was being "monitored" just as closely in [place], by the [place] government, as he was in the [facility]. The patient reiterates what he has had in the past a nd that is that he wants to "get out of [place] completely." Previously he has said that [place] the [place] and I reminded him today that he had said last week that his goal would be to go to the [facility]. However, he said that he has decided that the better place for him to go would be [facility] because he believes that he would be able to complete his expose in [place] without fear of being monitored and harassed. Physical Exam Psychiatric Orientation: alert and oriented x 3 Apperance: appropriately dressed, appropriately groomed and appeared stated age Eye Contact: + fair eye contact Motor Behavior: steady gait and station and no abnormal motor movements Speech: normal rate/rhythm/volume of speech Perhaps slightly subdued today "Okay." Thought Process: goal directed thought process Thought Content: + delusions The patient declines to discuss his thought content in detail, but again makes it clear that he believes that he is being harassed with the purpose of being silenced in order to stop him from successfully publishing and expose that will reveal what he believes more crimes against humanity committed over the period of many years by a number of entities within the government of the [place], [place], and, apparently, within the administration of [facility]. Suicidal Thoughts: denies suicidal thoughts Homicidal Thoughts: denies homicidal thoughts Hallucinations: no auditory hallucinations Cognition: recent memory grossly intact and remote memory grossly intact Estimated Intelligence: + above average estimated intelligence Insight: + severely impaired insight Judgement: + poor judgement Vital Signs (Past 24 Hours) Last Vital Signs Temp 36.6 C 12/11/19 06:00 Pulse 72 12/11/19 06:38 Resp 16 12/11/19 06:00 BP 116/64 12/11/19 06:38 Pulse Ox 98 11/14/19 20:15 Results & Data ([facility]) Current Inpatient Medications Current Inpatient Medications: Current Inpatient Medications Acetaminophen (Tylenol) 650 mg PO Q4H PRN PRN Reason: Headache or Minor Fever Stop: 01/10/20 20:43 Al Hydrox/Mg Hydrox/Simethicone (Maalox) 30 ml PO Q4H PRN PRN Reason: GI Upset Stop: 01/10/20 20:43 Bismuth Subsalicylate (Kaopectate) 15 ml PO PRN PRN PRN Reason: Loose Stool Stop: 01/10/20 20:43 Hydroxyzine HCl (Vistaril) 50 mg PO HSZ PRN PRN Reason: Insomnia Stop: 01/10/20 20:43 Hydroxyzine HCl (Vistaril) 25 mg PO Q4H PRN PRN Reason: Anxiety Stop: 01/10/20 20:43 Magnesium Hydroxide (Milk Of Magnesia) 30 ml PO DAILY PRN PRN Reason: Constipation Stop: 01/10/20 20:43 Olanzapine (Zyprexa Zydis Od) 10 mg PO HS ADRIANE Stop: 12/20/19 21:59 Last Admin: 12/10/19 22:11 Dose: Not Given Documented by: Olanzapine (Zyprexa) 10 mg IM HS PRN PRN Reason: Refusal of PO olanzapine Stop: 01/10/20 21:59 Sodium Chloride (Gulf Nasal) 1 - 2 sprays NA PRN PRN PRN Reason: Nasal Dryness/Congestion Stop: 01/10/20 20:43 Last Admin: 11/20/19 23:10 Dose: 2 sprays Documented by: Post Discharge Appointments Primary Care Physician Name Of Family Doctor: [place] [facility] - Dr. Jeffrey Torres Primary Care Provider Appointment Comment: [address], [address], [place] [address] Contact Information Discharge Discharge Address: [address], [place] [address]
[2019-12-11] MEDS: OLANZAPINE ZYDIS 10 MG ORALLY DIS. TAB PO SCH (21:37)
[2019-12-11] MEDS: OLANZapine 10 MG/2.1 ML SDV IM PRN (22:12)
--- NOTE | 2019-12-12 14:34 | Psychiatric Progress Note ---
Date of Service December 12, 2019 Impression / Recommendations Impression 59-year-old male admitted involuntarily for inpatient psychiatric treatment. Primary diagnosis of delusional disorder, persecutory type. Information provided by his indicates that several years ago certain changes in his department at the [facility] triggered a certain amount of distrust by the patient, which gradually grew into the elaborate, highly systematized delusional belief system that is currently in place. His delusional system was likely amplified by his tendency to obsess, focus on patterns, and look for theoretical explanations. While patient is highly attached to these delusional beliefs and is demonstrating inability/unwillingness to consider they may not be accurate - the primary safety concern surrounding his condition is the fact that he had been demonstrating highly agitated behavior which was threatening the safety of himself and his (throwing furniture at mckeon, ripping off door frames, etc). Although his behavior on the unit has been free of threats and violence, he is refusing to involve his , who reports fear for her safety given his behavior (violence directed at her prior to admission) and the fact that he has implicated her in his delusional system and believes she is conspiring within [place] government against him. Further, he is uncooperative with treatment, is refusing medication (although not resisting when given intramuscular injections of olanzapine), and declining outpatient treatment. This is a difficult and complex situation. The patient's dyscontrol behavior does not seem to be specific to his , and even were he to leave the hospital without going home to his , the behaviors described by his give reason to predict that he would quickly become a danger to himself or other people in the community. He lacks insight, and expresses a firm belief that he is on a mission to protect and save innocent people. His calmer behavior here is also within the context of his taking psychiatric medications, and he has made it abundantly clear that he will not consider taking any psychiatric medication unless it is forced on him in the hospital. 304 extended involuntarily commitment was granted on 11/30, and referral to the [facility] has been sent as he remains a danger to himself and others and is refusing to engage in conversation regarding alternative discharge options. As time has progressed, it appears that he is not responding favorably to olanzapine. He continues to adamantly refuse any type of psychotropic medication voluntarily. At his dose of olanzapine 15 mg intramuscularly at bedtime the patient's behavior remains pleasant, generally cooperative (with everything except psychiatric treatments, apart from individual encounters), nonthreatening, and fairly passive. However, his delusional belief system remains completely untouched as best we can tell, and he is now exhibiting evidence of some excess sedation with hypersomnolence during the day and the need to take frequent naps. The patient reports that he feels somewhat cognitively clouded by the medication and notes, for example, he is having difficulty concentrating and focusing on the mathematical equations that he has been using since admission as a way of relaxing. There is no evidence of any organicity, apart from medication side effects, the patient remains fully oriented, able to think in the abstract, and able to demonstrate good immediate, short-term and long-term memory. We have talked to her many times about perhaps switching to an oral medication that might help more with his obsessive qualities, such as fluoxetine, but, as above, he absolutely insists that he will not take any medication voluntarily and, to the contrary, he says that he is "very willing" to be forced to take medication because this, in his mind, is the equivalent of a "chemical lobotomy" and that those persons who are forcing him to take medications will be identified as contributing to the effort to silence him, once he is able to publish his expose. (1) Delusional disorder: 11/14 Patient admitted on an involuntary status to the behavioral health unit for continued assessment and treatment as indicated He will be maintained on every 15 minute safety checks We will continue to expand database Consider neuroimaging for w/u of psychosis prn orders for Ativan and Haldol today. I suspect it is likely that he will require medications over objection before he permits any treatment due to what appears to be severely impaired insight. Patient will be reevaluated tomorrow for psychiatric second opinion regarding need for treatment over objection. -presently patient requires continued inpatient hospitalization for workup and treatment of psychosis which was been recently associated with some violent behavior at home. he is at risk of harm to self and others if discharged prematurely. 11/15 -File for 303 involuntary commitment. -Patient is refusing to consider medication, but has haloperidol and Ativan as needed ordered. Would recommend a trial of olanzapine, and agree with medications over objection as he has severe psychotic symptoms which are impairing his ability to function and placing both himself and others at risk of harm due to his violent behavior at home. -Patient is refused to answer questions about whether or not he has guns, so we will need to get this information from his . At this point he is refusing to sign a release for her or anyone else. -Excuse patient from groups due to the severity of his psychosis and violent behavior. Medically necessary private room room due to the same. 11/16 - involuntary commitment granted. -Patient continues to refuse to allow his to be involved in treatment. He is now not denying that he was aggressive at home, but is refusing to discuss it, and is focused only on the conspiracy which he says led to his behavior. -Continue to consider medications over objection. At this point, we are attempting to engage the patient in treatment volitionally, and the risk of forcing medications at this time is further alienating him. However, if he is unable to engage in any manner, we will need to reconsider medications over objection. -Patient may attend groups if able to maintain appropriate behavioral control. -Patient has still not been willing to complete admission assessments, and has not been willing to provide certain information. 11/17 -Recommend medications over objection, as the patient is unable to engage in treatment due to the severity of his psychosis and lack of insight, and remains at imminent risk of harm to others, specifically his , if his symptoms remain untreated. He is floridly delusional, now implicating hospital staff in his delusions. He is not able to work as a result of his psychosis, and his is not able to work due to having to supervise him, and is fearful of him given his escalating violence at home. He continues to refuse to allow her to be involved in treatment, is not attending groups, and is refusing to even discuss medication options. Dr. Duarte recommended medications over objection, and I agree, as the patient is unlikely to improve without antipsychotic medication. -Start olanzapine Zydis 5 mg daily, with a 5 mg IM backup for refusal. Order FLP and FG tomorrow for baseline on an atypical antipsychotic. He will also need a medical work-up of psychosis once he is more cooperative, including brain MRI. -Ongoing poor sleep, staff will limit bright lights near his room at night, and if he can be compliant with medication, can move olanzapine to bedtime to assist with sleep. Giving during the day initially to allow for adequate staff in case of need for physical hold or restraint to receive medication. 11/18 - Continue olanzapine 5mg daily (offering PO Zydis with IM for refusal) - medications over objection, though patient has been cooperative with his preference for IM administration - Pt offered again PO olanzapine, with the eventual option of converting the medication to HS dosing if he continues to be cooperative - as he reports sedation after receiving the medication - Pt remains delusional and paranoid, unable to discuss examples of how we can assist him during his stay - Maintain MNPR due to level of psychosis - Fasting glucose - wnl at 90; triglycerides elevated at 188, remainder of lipid panel wnl - Continue attempts to coordinate care with patient's 11/19 -Patient is continuing to say that he does not wish for us to speak with his , and he again tells us that he will not sign a consent that will allow us to contact her. As above, his assertion is that he does not want us talking to her because she may tell us things that we will include in the record and that will eventually be used against him, either by the government or by [facility]. As a compromise, the patient says that he will ask his to call us and tell us whether she continues to feel that he is a danger to her, himself, or to anyone else. It was explained that we would also need to be able to talk to her about our concerns and we would need to coordinate aftercare arrangements with her. The patient replied to that by saying simply that he would not allow us to say anything about his care or recommended treatment to her at this time. -There seem to be some early indications that the patient may be responding to olanzapine. Today, when I told him that our concerns about his safety had not to do with his behaviors here in the hospital but, instead, about his behaviors at home (in the community) he quickly responded, "yes, but I am getting medication here!" (He almost immediately realized the implication of what he had just said, and he immediately changed the subject and began talking about how various entities were deliberately provoking him into losing his temper and acting in anger. -The patient tells us that he is using the fact that he has been given intramuscular medications against his will as evidence of our being the "dupes" or agents of the entities behind the conspiracy to silence him. He also reiterates that he believes that taking medication voluntarily is tantamount to acknowledging his need for psychiatric treatment, and he tells us that he has absolutely no psychiatric problem at all and does not need any treatment. -Today, we are increasing his olanzapine's as follows. We will begin olanzapine ODT 10 mg at bedtime starting tonight. We have also changed his order for medications over objection to olanzapine 10 mg IM daily for refusal of p.o. olanzapine. -Although the patient's presentation has many of the symptoms of a delusional disorder, persecutory typegiven the elaborate nature of the delusional system, we continue to suspect that what we are seeing is a somewhat atypical jorge, or discrete manic episodes overlaying a underlying delusional disorder. If the explanation for the patient's presentation is symptoms of a manic episode, his prognosis is better. We discussed the possibility of adding an antiobsessional medication which sometimes helps with pure delusional disorders, but the patient says that, absolutely, he will not take any medication that we offer him voluntarily. 11/22--continue Zyprexa IM hs, continues to refuse family meeting with due to paranoia, refuses 2-3 trial of PO Invega to convert to injectable. 11/23--File for 304 hearing d/t ongoing psychosis, lack of insight, refusal for outpatient treatment or ongoing medication, refusal to involve , and high risk for return to violent behavior if home w/ , whom he believes is part of the conspiracy against him. 11/24 - Continue olanzapine IM, continuing to offer patient PO medication which he is consistently refusing - Pt continues to refuse to involve in conversations regarding discharge and safety planning - 304 hearing scheduled for 11/30; pt continues to be psychotic and remains unable to engage in productive safety and discharge planing, therefore remains at high risk of harm to sefl or others if he is discharged home in his current state 11/25 - Titrating olanzapine to 10mg daily; patient continues to refuse offer for PO and is therefore continuing to receive IM injections each evening - 304 hearing 11/30; pt continues to be unwilling to participate in safety and discharge planning efforts 11/26 -The patient tells me that he received olanzapine 10 mg last evening and says that he feels that it has helped him sleep better. However, he notes that his sleep difficulty is related to the fact that his sleep schedule in the hospital is substantially different from the one that he is used to at home, with bedtime here at the hospital being 3 or 4 hours earlier than he is used to. Nevertheless, he says that he believes that he is not having any side effects from olanzapine and that, in the sense that it does help him fall asleep, it helps. Nevertheless, he also repeats today that he will not continue to take any medication, including olanzapine, if he is discharged. -I spoke with the patient's today, without disclosing any protected clinical data regarding the patient. She acknowledges that he frightens her, and, particularly recently, has caused her to fear for her personal physical safety. At the same time, she says tells me that she thinks that if she gets some advice about how best to "handle somebody who is delusional" possibly by getting into individual therapy, herself, she may be able to take him home. She also reports that should he be released (she is aware of upcoming hearing) that she will agree to take him home, because she loves him and wants to protect him, but continues to fear that he may again lose control of his behavior as a function of his delusions. -Today, the patient tells me that he recognizes that in his upcoming hearing on 11/30 (304) the issue may boil down to whether he can assure that he will be safe in the community and will not represent a risk to anyone else, even if he does not take medication. He also says that he recognizes the "Catch-22" that he is in because he realizes that the hospital is likely to say that his behavior in the hospital has been positively influenced by his taking olanzapine, and that without the structure of the hospital and without the medications, he may revert to the dangerous behaviors that precipitated the admission. -Of concern is the fact that the patient's tells us today that, effective yesterday, he has told her that he will no longer speak to her telephonically, and if he is released from the hospital on Anastasia he will simply walk home, and if she is not comfortable being home with him she should leave. However, by the end of today he is allowing that he truly believes that his loves him and would not try to harm him if she had any choice, so he is at least considering contacting her again by telephone. 11/27 -Patient informed of 304 hearing and plan to refer to the critical access hospital hospital, as well as additional labs needed for that referral. -He continues to refuse a family meeting with his , who has expressed bunny oing concern for her safety. He continues to refuse p.o. medication, outpatient treatment, and discussion of his aggression at home or plans to mitigate it. He remains at risk of harm to others, particularly his , and if discharged prematurely, as she is implicated in his delusion and he believes she has part of the conspiracy against him. -Encourage the patient to attend groups and focus on his own emotional reaction to his perception of events, healthy coping skills, and a discharge safety plan; all of which thus far he has been unwilling to do. 11/28 - 11/29 -Patient refused PPD, EKG, and chest x-ray for [facility] referral. He is refusing to consider a trial of Invega/MERCADO, and continues to refuse a family meeting. -304 involuntary commitment hearing scheduled for 12/01/2019, and will then pursue referral to the [facility]. 11/30 - 304 involuntary commitment granted today, referral to the [facility] is reportedly supported by the [facility] at this time - Pt was again offered PPD, EKG and CXR for [facility] referral, which he again declined - Although he is not overtly refusing medication changes, he does verbalize desire to give olanzapine "another week" before switching to another agent. 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 He remains delusional and without insight, refusing medication (although getting the IM of Zyprexa daily), a family meeting, or discharge planning/outpatient care. -Recommend referral to [facility] for long-term inpatient treatment, will simultaneously referring for a BCM and working on potential diversion plans. 12/02 - Continue IM olanzapine - as continues to refuse oral medications or discussion regarding alternative agents - Most documentation sent to [facility] for referral - awaiting 303 and 304 findings to be sent and will then fax these as well - Pt continues to decline medical tests generally requested as part of [facility] referral, but cannot force these studies to be done 12/03 -We will increase his dose of IM olanzapine to 12.5 mg at bedtime. The medication thus far does not seem to have had much of a favorable impact on the patient's delusional belief system, and he is not willing to consider antiobsessional medications in the form of a selective serotonin reuptake inhibitor. However, the patient is now sleeping better and his general demeanor has been more calm, more pleasant, and more self-possessed. -The patient reports that he does not feel that he is experiencing any side effects from olanzapine, but fall short of saying that it is helping him in any way, other than perhaps for sleep. He mentions that he sometimes has a pain in his left abdominal wall and lower rib cage that he says he does not feel as a side effect from medication but, rather, the result of his doing sit ups and his bedroom by placing his feet under the mattress and exercising in that way. 12/04 - 12/05 -Zyprexa 12.5 mg IM po qhs, sedation from yesterday seems to be resolving, can likely be increased tomorrow. 12/06 - Continue Zyprexa 12.5mg IM this evening - continue attempts to engage patient in conversation regarding dose increases or consideration of alternative agents - Pt continues to be unwilling to participate in conversation regarding alternative discharge plans to critical access hospital hospitalization. He continues to refuse to involve his or any other outpatient support in safety/discharge planning. - Referral to [facility] was completed and is reportedly being reviewed. 12/07 - Titrating Zyprexa 15mg IM - patient continues to refuse offer for oral medications. Pt was offered discussion about alternative agents, but declined. - Referral officially received by [facility] on 12/02/2019 (304 findings to be sent once received) - awaiting response regarding acceptance decision - Continue attempts to engage patient in discharge and safety planning - patient continues to be unwilling to discuss possible diversion plans 12/08 - 12/09 - Continue Zyprexa 15mg IM - pt continuing to refuse oral medications - Awaiting response from [facility] regarding referral - Pt remains unwilling to participate in safety planning or exploring diversion plan 12/10 -Patient is exhibiting excess sedation add Zyprexa 15 mg IM at bedtime. Specifically, the patient is observed to be hypersomnolent, has been sleeping off and on throughout the days, and indicates that he feels that at this higher dose of Zyprexa he is experiencing some cognitive slowing. At the same time, he does not seem to be responding to Zyprexa either at high doses or at low doses, other than it may be contributing to his ability to maintain self possession and avoid these sorts of dyscontroled behaviors that precipitated the current admission (for example, breaking furniture, knocking holes in the [place]ckeon of his home, and tearing out shards of woodwork and ways that frightened his ). -The patient remains delusional and harbors an elaborate persecutory delusional system that he often hits that, but is reluctant to discuss in detail much of the time because he says that he fears that information that he shares with us will fall into the wrong hands and will interfere with his ability to expose those persons who he feels are responsible for the referenced "crimes against humanity." -The patient when asked, convincingly states that he is not having any thoughts of extracting retribution from the individuals and entities that he holds responsible for his delusional construct regarding "crimes against humanity," other than to expose them by publishing proof of their crimes. Specifically, he says that he has no plan to cause physical harm to the person or property of others and says that he will leave the question of punishment to those who are lawful he entitled to impose it. -Because the patient's delusional belief seem not to be responding favorably to olanzapine at the higher dose, and because he is exhibiting some symptoms of excess sedation associated with olanzapine at 15 mg daily, his dose of olanzapine (to be given IM if necessary for refusal of p.o. olanzapine) will be reduced to olanzapine 10 mg IM at bedtime, starting tonight. 12/11 The patient is less sedated at the 10 mg of olanzapine IM he continues to refuse oral medications. Provider did again re-present the role of an SSRI that may help but he is clear and adamant about refusal of all medications. Risk Factors Assessment Male: Yes : Yes Do You Have Access To A Gun?: No ( denies that they have any guns at home) Health Problems: No Mental Health Diagnoses: Yes Substance Use Disorders: No Previous Attempt: No Previous Psychiatric Hospitalization: No Hopelessness: No Smoker: No Protective Factors Assessment : Yes Responsible for Young Children: No Employed: No Stable Relationships: No ( is supportive, but fearful of him due to his violence towards her.) Good Rapport with Provider: No (No outpatient providers.) Interval History Identifying Information SAL MAGANA is a 59-year-old M admitted on 11/14/19 19:58 on a 302 involuntary commitment for paranoia and violence at home, on a 304 extended involuntary commitment as of 11/30. Chief Complaint "Sure we can talk". Review of Systems Sleep Information Total Hours of Sleep: 5.5 Sleep Comments: he read in bed and was then asleep on 0030 rounds. Meal Information Percent Meal Consumed - Breakfast: 100 Percent Meal Consumed - Lunch: 25 Percent Meal Consumed - Dinner: 100 Nutrition Comment: per meal record Subjective Subjective Patient was seen & assessed and interval progress reviewed with treatment team Per treatment team the patient was able to go outside yesterday for a walk which she expressed appreciation for. We are awaiting further decision from [facility] regarding acceptance. The patient is described by nursing as superficially pleasant refusing unit programming and refusing p.o. medications continuing to receive IM ZyprexaMet with patient at the bedside in his room. He states he is willing to speak. He expresses that he feels a little less tired today at the lower dose of Zyprexa but still does not like the idea of medications and that he is still refusing to take them. He is able to state his dislike of medications but is able to iterate what has been explained to him by staff regarding his diagnosis of delusional disorder and the role of medications. He is clear to state "I do not think that it is changing anything." I do not plan to take it when I leave here" he did tolerate a discussion about the analogy of phantom limb pain being a problem of the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
[2019-12-12] MEDS: OLANZapine 10 MG/2.1 ML SDV IM PRN (22:07)
[2019-12-12] MEDS: OLANZAPINE ZYDIS 10 MG ORALLY DIS. TAB PO SCH (22:10)
--- NOTE | 2019-12-13 11:06 | Psychiatric Progress Note ---
Date of Service December 13, 2019 Impression / Recommendations Impression 59-year-old male admitted involuntarily for inpatient psychiatric treatment. Primary diagnosis of delusional disorder, persecutory type. Information provided by his indicates that several years ago certain changes in his department at the [facility] triggered a certain amount of distrust by the patient, which gradually grew into the elaborate, highly systematized delusional belief system that is currently in place. His delusional system was likely amplified by his tendency to obsess, focus on patterns, and look for theoretical explanations. While patient is highly attached to these delusional beliefs and is demonstrating inability/unwillingness to consider they may not be accurate - the primary safety concern surrounding his condition is the fact that he had been demonstrating highly agitated behavior which was threatening the safety of himself and his (throwing furniture at [place], ripping off door frames, etc). Although his behavior on the unit has been free of threats and violence, he is refusing to involve his , who reports fear for her safety given his behavior (violence directed at her prior to admission) and the fact that he has implicated her in his delusional system and believes she is conspiring within [place] government against him. Further, he is uncooperative with treatment, is refusing medication (although not resisting when given intramuscular injections of olanzapine), and declining outpatient treatment. This is a difficult and complex situation. The patient's dyscontrol behavior does not seem to be specific to his , and even were he to leave the hospital without going home to his , the behaviors described by his give reason to predict that he would quickly become a danger to himself or other people in the community. He lacks insight, and expresses a firm belief that he is on a mission to protect and save innocent people. His calmer behavior here is also within the context of his taking psychiatric medications, and he has made it abundantly clear that he will not consider taking any psychiatric medication unless it is forced on him in the hospital. 304 extended involuntarily commitment was granted on 11/30, and referral to the [facility] has been sent as he remains a danger to himself and others and is refusing to engage in conversation regarding alternative discharge options. As time has progressed, it appears that he is not responding favorably to olanzapine. He continues to adamantly refuse any type of psychotropic medication voluntarily. At his dose of olanzapine 15 mg intramuscularly at bedtime the patient's behavior remains pleasant, generally cooperative (with everything except psychiatric treatments, apart from individual encounters), nonthreatening, and fairly passive. However, his delusional belief system remains completely untouched as best we can tell and he began to demonstrate excessive sedation at this higher dose. 12/10 he again recieved the lowered dose of zyprexan and 12/11 remained sedated and tired, 12/12 he remains tired, and superficiallly calm attending to things such as breakfast, but when engaged he is more easily exasperated and quick to attribute the provider into a passive pawn in his delusional system that now includes the [employer] and "things that have been done to me" with not ability to reality test and it is a very poor prognostic sign that he is including current events with hospital staff and medical treatment into his delusional system. There is no evidence of any organicity, apart from medication side effects, the patient remains fully oriented, able to think in the abstractly on topics outside of his delusional system, and able to demonstrate good immediate, short- term and long-term memory. He has had multiple conversations [facility] psychiat[facility] about switching to an oral medication that might help more with his obsessive qualities, such as fluoxetine, but, as above, he absolutely insists that he will not take any medication voluntarily. He expressed to other psychiatrists that on the contrary, he says that he is "very willing" to be forced to take medication because this, in his mind, is the equivalent of a "chemical lobotomy" and that those persons who are forcing him to take medications will be identified as contributing to the effort to silence him, once he is able to publish his expose. Today he is less specific about medication continuing to refuse oral medications or any medications after discharge, and being clear he feels he is being used as a "guinea pig" suspecting that the medical treatments are a part of a more elaborate plan to keep him from speaking the truth about larger scale persecution and sinister events at government levels. (1) Delusional disorder: 11/14 Patient admitted on an involuntary status to the behavioral health unit for continued assessment and treatment as indicated He will be maintained on every 15 minute safety checks We will continue to expand database Consider neuroimaging for w/u of psychosis prn orders for Ativan and Haldol today. I suspect it is likely that he will require medications over objection before he permits any treatment due to what appears to be severely impaired insight. Patient will be reevaluated tomorrow for psychiatric second opinion regarding need for treatment over objection. -presently patient requires continued inpatient hospitalization for workup and treatment of psychosis which was been recently associated with some violent behavior at home. he is at risk of harm to self and others if discharged prematurely. 11/15 -File for 303 involuntary commitment. -Patient is refusing to consider medication, but has haloperidol and Ativan as needed ordered. Would recommend a trial of olanzapine, and agree with medications over objection as he has severe psychotic symptoms which are impairing his ability to function and placing both himself and others at risk of harm due to his violent behavior at home. -Patient is refused to answer questions about whether or not he has guns, so we will need to get this information from his . At this point he is refus ing to sign a release for her or anyone else. -Excuse patient from groups due to the severity of his psychosis and violent behavior. Medically necessary private room room due to the same. 11/16 -303 involuntary commitment granted. -Patient continues to refuse to allow his to be involved in treatment. He is now not denying that he was aggressive at home, but is refusing to discuss it, and is focused only on the conspiracy which he says led to his behavior. -Continue to consider medications over objection. At this point, we are attempting to engage the patient in treatment volitionally, and the risk of forcing medications at this time is further alienating him. However, if he is unable to engage in any manner, we will need to reconsider medications over objection. -Patient may attend groups if able to maintain appropriate behavioral control. -Patient has still not been willing to complete admission assessments, and has not been willing to provide certain information. 11/17 -Recommend medications over objection, as the patient is unable to engage in treatment due to the severity of his psychosis and lack of insight, and remains at imminent risk of harm to others, specifically his , if his symptoms remain untreated. He is floridly delusional, now implicating hospital staff in his delusions. He is not able to work as a result of his psychosis, and his is not able to work due to having to supervise him, and is fearful of him given his escalating violence at home. He continues to refuse to allow her to be involved in treatment, is not attending groups, and is refusing to even discuss medication options. Dr. Duarte recommended medications over objection, and I agree, as the patient is unlikely to improve without antipsych otic medication. -Start olanzapine Zydis 5 mg daily, with a 5 mg IM backup for refusal. Order FLP and FG tomorrow for baseline on an atypical antipsychotic. He will also need a medical work-up of psychosis once he is more cooperative, including brain MRI. -Ongoing poor sleep, staff will limit bright lights near his room at night, and if he can be compliant with medication, can move olanzapine to bedtime to assist with sleep. Giving during the day initially to allow for adequate staff in case of need for physical hold or restraint to receive medication. 11/18 - Continue olanzapine 5mg daily (offering PO Zydis with IM for refusal) - medications over objection, though patient has been cooperative with his preference for IM administration - Pt offered again PO olanzapine, with the eventual option of converting the medication to HS dosing if he continues to be cooperative - as he reports sedation after receiving the medication - Pt remains delusional and paranoid, unable to discuss examples of how we can assist him during his stay - Maintain MNPR due to level of psychosis - Fasting glucose - wnl at 90; triglycerides elevated at 188, remainder of lipid panel wnl - Continue attempts to coordinate care with patient's 11/19 -Patient is continuing to say that he does not wish for us to speak with his , and he again tells us that he will not sign a consent that will allow us to contact her. As above, his assertion is that he does not want us talking to her because she may tell us things that we will include in the record and that will eventually be used against him, either by the government or by [facility]. As a compromise, the patient says that he will ask his to call us and tell us whether she continues to feel that he is a danger to her, himself, or to anyone else. It was explained that we would also need to be able to talk to her about our concerns and we would need to coordinate aftercare arrangements with her. The patient replied to that by saying simply that he would not allow us to say anything about his care or recommended treatment to her at this time. -There seem to be some early indications that the patient may be responding to olanzapine. Today, when I told him that our concerns about his safety had not to do with his behaviors here in the hospital but, instead, about his behaviors at home (in the community) he quickly responded, "yes, but I am getting medication here!" (He almost immediately realized the implication of what he had just said, and he immediately changed the subject and began talking about how various entities were deliberately provoking him into losing his temper and acting in anger. -The patient tells us that he is using the fact that he has been given intramuscular medications against his will as evidence of our being the "dupes" or agents of the entities behind the conspiracy to silence him. He also reiterates that he believes that taking medication voluntarily is tantamount to acknowledging his need for psychiatric treatment, and he tells us that he has absolutely no psychiatric problem at all and does not need any treatment. -Today, we are increasing his olanzapine's as follows. We will begin olanzapine ODT 10 mg at bedtime starting tonight. We have also changed his order for medications over objection to olanzapine 10 mg IM daily for refusal of p.o. olanzapine. -Although the patient's presentation has many of the symptoms of a delusional disorder, persecutory typegiven the elaborate nature of the delusional system, we continue to suspect that what we are seeing is a somewhat atypical jorge, or discrete manic episodes overlaying a underlying delusional disorder. If the explanation for the patient's presentation is symptoms of a manic episode, his prognosis is better. We discussed the possibility of adding an antiobsessional medication which sometimes helps with pure delusional disorders, but the patient says that, absolutely, he will not take any medication that we offer him voluntarily. 11/22--continue Zyprexa IM hs, continues to refuse family meeting with due to paranoia, refuses 2-3 trial of PO Invega to convert to injectable. 11/23--File for 304 hearing d/t ongoing psychosis, lack of insight, refusal for outpatient treatment or ongoing medication, refusal to involve , and high risk for return to violent behavior if home w/ , whom he believes is part of the conspiracy against him. 11/24 - Continue olanzapine IM, continuing to offer patient PO medication which he is consistently refusing - Pt continues to refuse to involve in conversations regarding discharge and safety planning - 304 hearing scheduled for 11/30; pt continues to be psychotic and remains unable to engage in productive safety and discharge planing, therefore remains at high risk of harm to sefl or others if he is discharged home in his current state 11/25 - Titrating olanzapine to 10mg daily; patient continues to refuse offer for PO and is therefore continuing to receive IM injections each evening - 304 hearing 11/30; pt continues to be unwilling to participate in safety and discharge planning efforts 11/26 -The patient tells me that he received olanzapine 10 mg last evening and says that he feels that it has helped him sleep better. However, he notes that his sleep difficulty is related to the fact that his sleep schedule in the hospital is substantially different from the one that he is used to at home, with bedtime here at the hospital being 3 or 4 hours earlier than he is used to. Nevertheless, he says that he believes that he is not having any side effects from olanzapine and that, in the sense that it does help him fall asleep, it helps. Nevertheless, he also repeats today that he will not continue to take any medication, including olanzapine, if he is discharged. -I spoke with the patient's today, without disclosing any protected clinical data regarding the patient. She acknowledges that he frightens her, and, particularly recently, has caused her to fear for her personal physical safety. At the same time, she says tells me that she thinks that if she gets some advice about how best to "handle somebody who is delusional" possibly by getting into individual therapy, herself, she may be able to take him home. She also reports that should he be released (she is aware of upcoming hearing) that she will agree to take him home, because she loves him and wants to protect him, but continues to fear that he may again lose control of his behavior as a function of his delusions. -Today, the patient tells me that he recognizes that in his upcoming hearing on 11/30 (304) the issue may boil down to whether he can assure that he will be safe in the community and will not represent a risk to anyone else, even if he does not take medication. He also says that he recognizes the "Catch-22" that he is in because he realizes that the hospital is likely to say that his behavior in the hospital has been positively influenced by his taking olanzapine, and that without the structure of the hospital and without the medications, he may revert to the dangerous behaviors that precipitated the admi ssion. -Of concern is the fact that the patient's tells us today that, effective yesterday, he has told her that he will no longer speak to her telephonically, and if he is released from the hospital on Saturday he will simply walk home, and if she is not comfortable being home with him she should leave. However, by the end of today he is allowing that he truly believes that his loves him and would not try to harm him if she had any choice, so he is at least considering contacting her again by telephone. 11/27 -Patient informed of 304 hearing and plan to refer to the [facility], as well as additional labs needed for that referral. -He continues to refuse a family meeting with his , who has expressed ongoing concern for her safety. He continues to refuse p.o. medication, outpatient treatment, and discussion of his aggression at home or plans to mitigate it. He remains at risk of harm to others, particularly his , and if discharged prematurely, as she is implicated in his delusion and he believes she has part of the conspiracy against him. -Encourage the patient to attend groups and focus on his own emotional reaction to his perception of events, healthy coping skills, and a discharge safety plan; all of which thus far he has been unwilling to do. 11/28 - 11/29 -Patient refused PPD, EKG, and chest x-ray for [facility] referral. He is refusing to consider a trial of Invega/MERCADO, and continues to refuse a family meeting. -304 involuntary commitment hearing scheduled for 12/01/2019, and will then pursue referral to the [facility]. 11/30 - 304 involuntary commitment granted today, referral to the [facility] is reportedly supported by the count includes the [facility] at this time - Pt was again offered PPD, EKG and CXR for [facility] referral, which he again declined - Although he is not overtly refusing medication changes, he does verbalize desire to give olanzapine "another week" before switching to another agent. 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 He remains delusional and without insight, refusing medication (although getting the IM of Zyprexa daily), a family meeting, or discharge planning/outpatient care. -Recommend referral to [facility] for long-term inpatient treatment, will simultaneously referring for a BCM and working on potential diversion plans. 12/02 - Continue IM olanzapine - as continues to refuse oral medications or discussion regarding alternative agents - Most documentation sent to [facility] for referral - awaiting 303 and 304 findings to be sent and will then fax these as well - Pt continues to decline medical tests generally requested as part of [facility] referral, but cannot force these studies to be done 12/03 -We will increase his dose of IM olanzapine to 12.5 mg at bedtime. The medication thus far does not seem to have had much of a favorable impact on the patient's delusional belief system, and he is not willing to consider antio bsessional medications in the form of a selective serotonin reuptake inhibitor. However, the patient is now sleeping better and his general demeanor has been more calm, more pleasant, and more self-possessed. -The patient reports that he does not feel that he is experiencing any side effects from olanzapine, but fall short of saying that it is helping him in any way, other than perhaps for sleep. He mentions that he sometimes has a pain in his left abdominal wall and lower rib cage that he says he does not feel as a side effect from medication but, rather, the result of his doing sit ups and his bedroom by placing his feet under the mattress and exercising in that way. 12/04 - 12/05 -Zyprexa 12.5 mg IM po qhs, sedation from yesterday seems to be resolving, can likely be increased tomorrow. 12/06 - Continue Zyprexa 12.5mg IM this evening - continue attempts to engage patient in conversation regarding dose increases or consideration of alternative agents - Pt continues to be unwilling to participate in conversation regarding alternative discharge plans to state hospitalization. He continues to refuse to involve his or any other outpatient support in safety/discharge planning. - Referral to [facility] was completed and is reportedly being reviewed. 12/07 - Titrating Zyprexa 15mg IM - patient continues to refuse offer for oral medications. Pt was offered discussion about alternative agents, but declined. - Referral officially received by [facility] on 12/02/2019 (304 findings to be sent once received) - awaiting response regarding acceptance decision - Continue attempts to engage patient in discharge and safety planning - patient continues to be unwilling to discuss possible diversion plans 12/08 - 12/09 - Continue Zyprexa 15mg IM - pt continuing to refuse oral medications - Awaiting response from [facility] regarding referral - Pt remains unwilling to participate in safety planning or exploring diversion plan 12/10 -Patient is exhibiting excess sedation add Zyprexa 15 mg IM at bedtime. Specifically, the patient is observed to be hypersomnolent, has been sleeping off and on throughout the days, and indicates that he feels that at this higher dose of Zyprexa he is experiencing some cognitive slowing. At the same time, he does not seem to be responding to Zyprexa either at high doses or at low doses, other than it may be contributing to his ability to maintain self possession and avoid these sorts of dyscontroled behaviors that precipitated the current admission (for example, breaking furniture, knocking holes in the [place] of his home, and tearing out shards of woodwork and ways that frightened his ). -The patient remains delusional and harbors an elaborate persecutory delusional system that he often hits that, but is reluctant to discuss in detail much of the time because he says that he fears that information that he shares with us will fall into the wrong hands and will interfere with his ability to expose those persons who he feels are responsible for the referenced "crimes against humanity." -The patient when asked, convincingly states that he is not having any thoughts of extracting retribution from the individuals and entities that he holds responsible for his delusional construct regarding "crimes against humanity," other than to expose them by publishing proof of their crimes. Specifically, he says that he has no plan to cause physical harm to the person or property of others and says that he will leave the question of punishment to those who are lawful he entitled to impose it. -Because the patient's delusional belief seem not to be responding favorably to olanzapine at the higher dose, and because he is exhibiting some symptoms of excess sedation associated with olanzapine at 15 mg daily, his dose of olanzapine (to be given IM if necessary for refusal of p.o. olanzapine) will be reduced to olanzapine 10 mg IM at bedtime, starting tonight. 12/11 The patient is less sedated at the 10 mg of olanzapine IM he continues to refuse oral medications. Provider did again re-present the role of an SSRI that may help but he is clear and adamant about refusal of all medications. 12/12 - he is slightly less sedated at 10mg olanzapine IM each hs, but is more agitated today that he had been and more profuse with this provider about his delusional beliefs and seeing this provider and all medical care here as passive pawns of a broader conspiracy through the [employer]. He continues to decline oral medications, or any form of aftercare for monitoring of irritability and agitation maintaining that he does not have any mental illness and that all he has is "truth." Presently his risk of continuing to incorporate anyone who disagrees with his delusion into the delusion, his unwillingness to take medications after discharge, and unwillingness to participate any form of routine relationship with a behavioral health provider after discharge, and incorporation of his in his delusional system with prior physical aggression are concerning. I believe ongoing inpatient hospitalization is most appropriate setting for care at this time Risk Factors Assessment Male: Yes : Yes Do You Have Access To A Gun?: No ( denies that they have any guns at home) Health Problems: No Mental Health Diagnoses: Yes Substance Use Disorders: No Previous Attempt: No Previous Psychiatric Hospitalization: No Hopelessness: No Smoker: No Protective Factors Assessment : Yes Responsible for Young Children: No Employed: No Stable Relationships: No ( is supportive, but fearful of him due to his violence towards her.) Good Rapport with Provider: No (No outpatient providers.) Interval History Identifying Information SAL MAGANA is a 59-year-old M admitted on 11/14/19 19:58 on a 302 involuntary commitment for paranoia and violence at home, on a 304 extended involuntary commitment as of 11/30. Chief Complaint "Sure we can talk but there is nothing new to say". Review of Systems Sleep Information Total Hours of Sleep: 6.5 Sleep Comments: he read in bed and was then asleep on 0030 rounds. Meal Information Percent Meal Consumed - Breakfast: 100 Percent Meal Consumed - Lunch: 25 Percent Meal Consumed - Dinner: 100 Nutrition Comment: per meal record Subjective Subjective Patient was seen & assessed and interval progress reviewed with treatment team. Per nursing staff the patient did sleep yesterday morning a good bit of the time, refused to attend groups and did refuse oral medication received his injection without resistance. He did sit in the day room during the day working math problems and appeared less sedated as the day went on. I met with the patient today in his room he was woken from sleeping around 10 AM and was willing to have conversation. He quickly became off the foot and frustrated with the conversation stating of course you are just carrying the green party line you are 1 of their stooges from the [employer] you would not know what is going on because you have not looked at the evidence." The provider observed "you seem more frustrated today" the patient again reiterated his believe that he is being persecuted and that no one has looked at the evidence. He states, "of course you are just a community health representative you are just here to carry on the message you have been told to carry." When I ask if he felt any less sedated today he stated "now I still feel tired ever since the medication was at the 15 mg even though now it is at 10 mg. I feel like it is not helping and you are just using me as a guinea pig." Any attempts to empathize and yet explain the role and goal of the medication recommendation for Zyprexa are rebuffed with further paranoid statements that this provider is simply a "student" a "community health representative" the patient states "I know what is going on and you cannot take that away from me and I will continue to state the truth even if it means carrying it to my grave." He denies having physical pain today he is eating "okay" he denies other physical concerns other than being tired. He did report he felt exercise intolerance with quickness to fatigue and muscle soreness the other day when he tried to work out and he has not worked out since. Physical Exam Psychiatric Orientation: alert, oriented to person, oriented to place and oriented to time Rises from sleep and sits in his bed, hair is disheveled, he is wearing hospital close appears clean and tired. Eye Contact: + fair eye contact Motor Behavior: no abnormal motor movements; no psychomotor agitation and n akathisia Gait and station were not assessed as the patient remained seated throughout the encounter Speech: normal rate/rhythm/volume of speech (Exasperated modestly irritable tone and manner, he scoffs and sighs often) Appears exasperated and mildly irritable consistently throughout the visit He does not give a description of his mood when asked instead reiterates his believes about persecution Thought Process: goal directed thought process Thought Content: + preoccupation and + delusions He denies wanting his life to be over but feels he will maintain his stance of "truth" and take it to his grave He denies having thoughts of harming anyone else Hallucinations: no auditory hallucinations and no visual hallucinations Cognition: attention grossly intact He appears to have recollection of recent events he has alternative perspectives on interpretation of what has happened Estimated Intelligence: + above average estimated intelligence Insight: + severely impaired insight Judgement: + impaired judgement (Based on poor insight) Vital Signs (Past 24 Hours) Last Vital Signs Temp 36.6 C 12/13/19 06:00 Pulse 73 12/13/19 06:29 Resp 16 12/13/19 06:00 BP 115/71 12/13/19 06:29 Pulse Ox 98 11/14/19 20:15 Results & Data ([facility]) Current Inpatient Medications Current Inpatient Medications: Current Inpatient Medications Acetaminophen (Tylenol) 650 mg PO Q4H PRN PRN Reason: Headache or Minor Fever Stop: 01/10/20 20:43 Al Hydrox/Mg Hydrox/Simethicone (Maalox) 30 ml PO Q4H PRN PRN Reason: GI Upset Stop: 01/10/20 20:43 Bismuth Subsalicylate (Kaopectate) 15 ml PO PRN PRN PRN Reason: Loose Stool Stop: 01/10/20 20:43 Hydroxyzine HCl (Vistaril) 50 mg PO HSZ PRN PRN Reason: Insomnia Stop: 01/10/20 20:43 Hydroxyzine HCl (Vistaril) 25 mg PO Q4H PRN PRN Reason: Anxiety Stop: 01/10/20 20:43 Magnesium Hydroxide (Milk Of Magnesia) 30 ml PO DAILY PRN PRN Reason: Constipation Stop: 01/10/20 20:43 Olanzapine (Zyprexa Zydis Od) 10 mg PO HS ADRIANE Stop: 12/20/19 21:59 Last Admin: 12/12/19 22:10 Dose: Not Given Documented by: Olanzapine (Zyprexa) 10 mg IM HS PRN PRN Reason: Refusal of PO olanzapine Stop: 01/10/20 21:59 Last Admin: 12/12/19 22:07 Dose: 10 mg Documented by: Sodium Chloride ([place] Nasal) 1 - 2 sprays NA PRN PRN PRN Reason: Nasal Dryness/Congestion Stop: 01/10/20 20:43 Last Admin: 11/20/19 23:10 Dose: 2 sprays Documented by: Post Discharge Appointments Primary Care Physician Name Of Family Doctor: [facility] - Dr. Jeffrey Torres Primary Care Provider Appointment Comment: [address], [address], [place] [address] Contact Information Discharge Discharge Address: [address] [place] [address], [id number], [place] [address]
[2019-12-13] MEDS: OLANZAPINE ZYDIS 10 MG ORALLY DIS. TAB PO SCH (21:56)
[2019-12-13] MEDS: OLANZapine 10 MG/2.1 ML SDV IM PRN (22:01)
[2019-12-14] MEDS: MULTIVITAMIN PO SCH (08:25)
[2019-12-14] MEDS ORDERED: CEROVITE ADV FORMULA TAB PO SCH (09:00)
--- NOTE | 2019-12-14 09:14 | Psychiatric Progress Note ---
Date of Service December 14, 2019 Impression / Recommendations Impression 59-year-old male admitted involuntarily for inpatient psychiatric treatment. Primary diagnosis of delusional disorder, persecutory type. Information provided by his indicates that several years ago certain changes in his department at the [facility] triggered a certain amount of distrust by the patient, which gradually grew into the elaborate, highly systematized delusional belief system that is currently in place. His delusional system was likely amplified by his tendency to obsess, focus on patterns, and look for theoretical explanations. While patient is highly attached to these delusional beliefs and is demonstrating inability/unwillingness to consider they may not be accurate - the primary safety concern surrounding his condition is the fact that he had been demonstrating highly agitated behavior which was threatening the safety of himself and his (throwing furniture at mckeon, ripping off door frames, etc). Although his behavior on the unit has been free of threats and violence, he is refusing to involve his , who reports fear for her safety given his behavior (violence directed at her prior to admission) and the fact that he has implicated her in his delusional system and believes she is conspiring within [place] government against him. Further, he is uncooperative with treatment, is refusing medication (although not resisting when given intramuscular injections of olanzapine), and declining outpatient treatment. This is a difficult and complex situation. The patient's dyscontrol behavior does not seem to be specific to his , and even were he to leave the hospital without going home to his , the behaviors described by his give reason to predict that he would quickly become a danger to himself or other people in the community. He lacks insight, and expresses a firm belief that he is on a mission to protect and save innocent people. His calmer behavior here is also within the context of his taking psychiatric medications, and he has made it abundantly clear that he will not consider taking any psychiatric medication unless it is forced on him in the hospital. 304 extended involuntarily commitment was granted on 11/30, and referral to the [facility] has been sent as he remains a danger to himself and others and is refusing to engage in conversation regarding alternative discharge options. As time has progressed, it appears that he is not responding favorably to olanzapine. He continues to adamantly refuse any type of psychotropic medication voluntarily. At a dose of olanzapine 15 mg intramuscularly at bedtime the patient's behavior on the unit was pleasant and fairly passive (with the exception of increased irritability during meetings with psychiatric providers). However, his delusional belief system remained completely untouched as best we can tell and he began to demonstrate excessive sedation at this higher dose. Does was reduced to 10mg IM on 12/10 with reported improvement in alertness throughout the day. He has since returned to working on mathematical equations. He continues to be incorporating staff and psychiatric providers into his delusional system. (1) Delusional disorder: 11/14 Patient admitted on an involuntary status to the behavioral health unit for continued assessment and treatment as indicated He will be maintained on every 15 minute safety checks We will continue to expand database Consider neuroimaging for w/u of psychosis prn orders for Ativan and Haldol today. I suspect it is likely that he will require medications over objection before he permits any treatment due to what appears to be severely impaired insight. Patient will be reevaluated tomorrow for psychiatric second opinion regarding need for treatment over objection. -presently patient requires continued inpatient hospitalization for workup and treatment of psychosis which was been recently associated with some violent behavior at home. he is at risk of harm to self and others if discharged prematurely. 11/15 -File for 303 involuntary commitment. -Patient is refusing to consider medication, but has haloperidol and Ativan as needed ordered. Would recommend a trial of olanzapine, and agree with medications over objection as he has severe psychotic symptoms which are impairing his ability to function and placing both himself and others at risk of harm due to his violent behavior at home. -Patient is refused to answer questions about whether or not he has guns, so we will need to get this information from his . At this point he is re fusing to sign a release for her or anyone else. -Excuse patient from groups due to the severity of his psychosis and violent behavior. Medically necessary private room room due to the same. 11/16 -303 involuntary commitment granted. -Patient continues to refuse to allow his to be involved in treatment. He is now not denying that he was aggressive at home, but is refusing to discuss it, and is focused only on the conspiracy which he says led to his behavior. -Continue to consider medications over objection. At this point, we are attempting to engage the patient in treatment volitionally, and the risk of forcing medications at this time is further alienating him. However, if he is unable to engage in any manner, we will need to reconsider medications over objection. -Patient may attend groups if able to maintain appropriate behavioral control. -Patient has still not been willing to complete admission assessments, and has not been willing to provide certain information. 4/ -Recommend medications over objection, as the patient is unable to engage in treatment due to the severity of his psychosis and lack of insight, and remains at imminent risk of harm to others, specifically his , if his symptoms remain untreated. He is floridly delusional, now implicating hospital staff in his delusions. He is not able to work as a result of his psychosis, and his is not able to work due to having to supervise him, and is fearful of him given his escalating violence at home. He continues to refuse to allow her to be involved in treatment, is not attending groups, and is refusing to even discuss medication options. Dr. Duarte recommended medications over objection, and I agree, as the patient is unlikely to improve without antips ychotic medication. -Start olanzapine Zydis 5 mg daily, with a 5 mg IM backup for refusal. Order FLP and FG tomorrow for baseline on an atypical antipsychotic. He will also need a medical work-up of psychosis once he is more cooperative, including brain MRI. -Ongoing poor sleep, staff will limit bright lights near his room at night, and if he can be compliant with medication, can move olanzapine to bedtime to assist with sleep. Giving during the day initially to allow for adequate staff in case of need for physical hold or restraint to receive medication. 4/2 - Continue olanzapine 5mg daily (offering PO Zydis with IM for refusal) - medications over objection, though patient has been cooperative with his preference for IM administration - Pt offered again PO olanzapine, with the eventual option of converting the medication to HS dosing if he continues to be cooperative - as he reports sedation after receiving the medication - Pt remains delusional and paranoid, unable to discuss examples of how we can assist him during his stay - Maintain MNPR due to level of psychosis - Fasting glucose - wnl at 90; triglycerides elevated at 188, remainder of lipid panel wnl - Continue attempts to coordinate care with patient's 11/19 -Patient is continuing to say that he does not wish for us to speak with his , and he again tells us that he will not sign a consent that will allow us to contact her. As above, his assertion is that he does not want us talking to her because she may tell us things that we will include in the record and that will eventually be used against him, either by the government or by [facility]. As a compromise, the patient says that he will ask his to call us and tell us whether she continues to feel that he is a danger to her, himself, or to anyone else. It was explained that we would also need to be able to talk to her about our concerns and we would need to coordinate aftercare arrangements with her. The patient replied to that by saying simply that he would not allow us to say anything about his care or recommended treatment to her at this time. -There seem to be some early indications that the patient may be responding t o olanzapine. Today, when I told him that our concerns about his safety had not to do with his behaviors here in the hospital but, instead, about his behaviors at home (in the community) he quickly responded, "yes, but I am getting medication here!" (He almost immediately realized the implication of what he had just said, and he immediately changed the subject and began talking about how various entities were deliberately provoking him into losing his temper and acting in anger. -The patient tells us that he is using the fact that he has been given intramuscular medications against his will as evidence of our being the "dupes" or agents of the entities behind the conspiracy to silence him. He also reiterates that he believes that taking medication voluntarily is tantamount to acknowledging his need for psychiatric treatment, and he tells us that he has absolutely no psychiatric problem at all and does not need any treatment. -Today, we are increasing his olanzapine's as follows. We will begin olanzapine ODT 10 mg at bedtime starting tonight. We have also changed his order for medications over objection to olanzapine 10 mg IM daily for refusal of p.o. olanzapine. -Although the patient's presentation has many of the symptoms of a delusional disorder, persecutory typegiven the elaborate nature of the delusional system, we continue to suspect that what we are seeing is a somewhat atypical jorge, or discrete manic episodes overlaying a underlying delusional disorder. If the explanation for the patient's presentation is symptoms of a manic episode, his prognosis is better. We discussed the possibility of adding an antiobsessional medication which sometimes helps with pure delusional disorders, but the patient says that, absolutely, he will not take any medication that we offer him voluntarily. 11/22--continue Zyprexa IM hs, continues to refuse family meeting with due to paranoia, refuses 2-3 trial of PO Invega to convert to injectable. 11/23--File for 304 hearing d/t ongoing psychosis, lack of insight, refusal for outpatient treatment or ongoing medication, refusal to involve , and high risk for return to violent behavior if home w/ , whom he believes is part of the conspiracy against him. 11/24 - Continue olanzapine IM, continuing to offer patient PO medication which he is consistently refusing - Pt continues to refuse to involve in conversations regarding discharge and safety planning - 304 hearing scheduled for 11/30; pt continues to be psychotic and remains unable to engage in productive safety and discharge planing, therefore remains at high risk of harm to sefl or others if he is discharged home in his current state 11/25 - Titrating olanzapine to 10mg daily; patient continues to refuse offer for PO and is therefore continuing to receive IM injections each evening - 304 hearing 11/30; pt continues to be unwilling to participate in safety and discharge planning efforts 11/26 -The patient tells me that he received olanzapine 10 mg last evening and says that he feels that it has helped him sleep better. However, he notes that his sleep difficulty is related to the fact that his sleep schedule in the hospital is substantially different from the one that he is used to at home, with bedtime here at the hospital being 3 or 4 hours earlier than he is used to. Nevertheless, he says that he believes that he is not having any side effects from olanzapine and that, in the sense that it does help him fall asleep, it helps. Nevertheless, he also repeats today that he will not continue to take any medication, including olanzapine, if he is discharged. -I spoke with the patient's today, without disclosing any protected clinical data regarding the patient. She acknowledges that he frightens her, and, particularly recently, has caused her to fear for her personal physical safety. At the same time, she says tells me that she thinks that if she gets some advice about how best to "handle somebody who is delusional" possibly by getting into individual therapy, herself, she may be able to take him home. She also reports that should he be released (she is aware of upcoming hearing) that she will agree to take him home, because she loves him and wants to protect him, but continues to fear that he may again lose control of his behavior as a function of his delusions. -Today, the patient tells me that he recognizes that in his upcoming hearing on 11/30 (304) the issue may boil down to whether he can assure that he will be safe in the community and will not represent a risk to anyone else, even if he does not take medication. He also says that he recognizes the "Catch-22" that he is in because he realizes that the hospital is likely to say that his behavior in the hospital has been positively influenced by his taking olanzapine, and that without the structure of the hospital and without the medications, he may revert to the dangerous behaviors that precipitated the a dmission. -Of concern is the fact that the patient's tells us today that, effective yesterday, he has told her that he will no longer speak to her telephonically, and if he is released from the hospital on Saturday he will simply walk home, and if she is not comfortable being home with him she should leave. However, by the end of today he is allowing that he truly believes that his loves him and would not try to harm him if she had any choice, so he is at least considering contacting her again by telephone. 11/27 -Patient informed of 304 hearing and plan to refer to the [facility], as well as additional labs needed for that referral. -He continues to refuse a family meeting with his , who has expressed ongoing concern for her safety. He continues to refuse p.o. medication, outpatient treatment, and discussion of his aggression at home or plans to mitigate it. He remains at risk of harm to others, particularly his , and if discharged prematurely, as she is implicated in his delusion and he believes she has part of the conspiracy against him. -Encourage the patient to attend groups and focus on his own emotional reaction to his perception of events, healthy coping skills, and a discharge safety plan; all of which thus far he has been unwilling to do. 11/28 - 11/29 -Patient refused PPD, EKG, and chest x-ray for on license of [facility] hospital referral. He is refusing to consider a trial of Invega/MERCADO, and continues to refuse a family meeting. -304 involuntary commitment hearing scheduled for 12/01/2019, and will then pursue referral to the [facility]. 11/30 - 304 involuntary commitment granted today, referral to the [facility] is reportedly supported by the [facility] at this time - Pt was again offered PPD, EKG and CXR for [facility] referral, which he again declined - Although he is not overtly refusing medication changes, he does verbalize desire to give olanzapine "another week" before switching to another agent. 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 He remains delusional and without insight, refusing medication (although getting the IM of Zyprexa daily), a family meeting, or discharge planning/outpatient care. -Recommend referral to [facility] for long-term inpatient treatment, will simultaneously referring for a BCM and working on potential diversion plans. 12/02 - Continue IM olanzapine - as continues to refuse oral medications or discussion regarding alternative agents - Most documentation sent to [facility] for referral - awaiting 303 and 304 findings to be sent and will then fax these as well - Pt continues to decline medical tests generally requested as part of [facility] referral, but cannot force these studies to be done 12/03 -We will increase his dose of IM olanzapine to 12.5 mg at bedtime. The medication thus far does not seem to have had much of a favorable impact on the patient's delusional belief system, and he is not willing to consider an tiobsessional medications in the form of a selective serotonin reuptake inhibitor. However, the patient is now sleeping better and his general demeanor has been more calm, more pleasant, and more self-possessed. -The patient reports that he does not feel that he is experiencing any side effects from olanzapine, but fall short of saying that it is helping him in any way, other than perhaps for sleep. He mentions that he sometimes has a pain in his left abdominal wall and lower rib cage that he says he does not feel as a side effect from medication but, rather, the result of his doing sit ups and his bedroom by placing his feet under the mattress and exercising in that way. 12/04 - 12/05 -Zyprexa 12.5 mg IM po qhs, sedation from yesterday seems to be resolving, can likely be increased tomorrow. 12/06 - Continue Zyprexa 12.5mg IM this evening - continue attempts to engage patient in conversation regarding dose increases or consideration of alternative agents - Pt continues to be unwilling to participate in conversation regarding alternative discharge plans to state hospitalization. He continues to refuse to involve his or any other outpatient support in safety/discharge planning. - Referral to [facility] was completed and is reportedly being reviewed. 12/07 - Titrating Zyprexa 15mg IM - patient continues to refuse offer for oral medications. Pt was offered discussion about alternative agents, but declined. - Referral officially received by [facility] on 12/02/2019 (304 findings to be sent once received) - awaiting response regarding acceptance decision - Continue attempts to engage patient in discharge and safety planning - patient continues to be unwilling to discuss possible diversion plans 12/08 - 12/09 - Continue Zyprexa 15mg IM - pt continuing to refuse oral medications - Awaiting response from [facility] regarding referral - Pt remains unwilling to participate in safety planning or exploring diversion plan 12/10 -Patient is exhibiting excess sedation add Zyprexa 15 mg IM at bedtime. Specifically, the patient is observed to be hypersomnolent, has been sleeping off and on throughout the days, and indicates that he feels that at this higher dose of Zyprexa he is experiencing some cognitive slowing. At the same time, he does not seem to be responding to Zyprexa either at high doses or at low doses, other than it may be contributing to his ability to maintain self possession and avoid these sorts of dyscontroled behaviors that precipitated the current admission (for example, breaking furniture, knocking holes in the mckeon of his home, and tearing out shards of woodwork and ways that frightened his ). -The patient remains delusional and harbors an elaborate persecutory delusional system that he often hits that, but is reluctant to discuss in detail much of the time because he says that he fears that information that he shares with us will fall into the wrong hands and will interfere with his ability to expose those persons who he feels are responsible for the referenced "crimes against humanity." -The patient when asked, convincingly states that he is not having any thoughts of extracting retribution from the individuals and entities that he holds responsible for his delusional construct regarding "crimes against humanity," other than to expose them by publishing proof of their crimes. Specifically, he says that he has no plan to cause physical harm to the person or property of others and says that he will leave the question of punishment to those who are lawful he entitled to impose it. -Because the patient's delusional belief seem not to be responding favorably to olanzapine at the higher dose, and because he is exhibiting some symptoms of excess sedation associated with olanzapine at 15 mg daily, his dose of olanzapine (to be given IM if necessary for refusal of p.o. olanzapine) will be reduced to olanzapine 10 mg IM at bedtime, starting tonight. 12/11 The patient is less sedated at the 10 mg of olanzapine IM he continues to refuse oral medications. Provider did again re-present the role of an SSRI that may help but he is clear and adamant about refusal of all medications. 12/12 - he is slightly less sedated at 10mg olanzapine IM each hs, but is more agitated today that he had been and more profuse with this provider about his delusional beliefs and seeing this provider and all medical care here as passive pawns of a broader conspiracy through the [employer]. He continues to decline oral medications, or any form of aftercare for monitoring of irritability and agitation maintaining that he does not have any mental illness and that all he has is "truth." Presently his risk of continuing to incorporate anyone who disagrees with his delusion into the delusion, his unwillingness to take medications after discharge, and unwillingness to participate any form of routine relationship with a behavioral health provider after discharge, and incorporation of his in his delusional system with prior physical aggression are concerning. I believe ongoing inpatient hospitalization is most appropriate setting for care at this time 12/13 - Continue olanzapine 10mg IM each evening (patient continues to refuse PO medications or discussion regarding alternative agents. - Pt continues to appear sedated, though is spending more time out of his room in the afternoons. - Anticipate decision regarding [facility] referral in the next few days Risk Factors Assessment Male: Yes : Yes Do You Have Access To A Gun?: No ( denies that they have any guns at home) Health Problems: No Mental Health Diagnoses: Yes Substance Use Disorders: No Previous Attempt: No Previous Psychiatric Hospitalization: No Hopelessness: No Smoker: No Protective Factors Assessment : Yes Responsible for Young Children: No Employed: No Stable Relationships: No ( is supportive, but fearful of him due to his violence towards her.) Good Rapport with Provider: No (No outpatient providers.) Interval History Identifying Information SAL MAGANA is a 59-year-old M admitted on 11/14/19 19:58 on a 302 involuntary commitment for paranoia and violence at home, on a 304 extended involuntary commitment as of 11/30. Chief Complaint "Oh, fine. Just tired." Review of Systems Notes Constitutional: reports ongoing daytime fatigue Cardiovascular: denied Respiratory: denied Gastrointestinal: denied Neurological: denied Psychiatric: denies symptoms other than stated above Total of at least 10 systems reviewed, pertinent positives as above and in HPI. Sleep Information Total Hours of Sleep: 6.5 Sleep Comments: he read in bed and was then asleep on 0030 rounds. Meal Information Percent Meal Consumed - Breakfast: 100 Percent Meal Consumed - Lunch: 100 Percent Meal Consumed - Dinner: 100 Nutrition Comment: per meal record Subjective Subjective Patient was seen & assessed and interval progress reviewed with treatment team. Staff report improvement in the patient's level of sedation over the course of the weekend. He remains delusional with no significant change in condition over the course of his hospitalization. Anticipate response regarding [facility] referral tomorrow. Pt was seen today to assess progress since admission. Pt states he continues to be fatigued, feeling this is persisting after having taken 15mg of olanzapine for several days. 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 He is limited in his desire to speak with this provider, discussing only his ongoing fatigue but stating "I'm sure that was your intention." It was again offered that we discuss trial of an alternative agent as he states "it's been pretty clear that my body is not tolerating this agent. Anything else you give me would have the same side effects." We discussed that while there are side effects that can be anticipated across the class of medications, the response and tolerability of each may vary. Pt was again informed that we as providers believe that medication is an essential part of his treatment, but that we would be interested in engaging him in conversation regarding possible alternatives. He stated "no, I will just stay with this one, I just hope the fatigue gets better." He denied other questions or concerns, and stated he had nothing further to discuss at this time. Physical Exam Psychiatric Orientation: alert and + guarded (limited willingness to participate in conversation) Apperance: + disheveled (long skinner hair, unkempt); + inappropriately dressed (wearing same clothes for several days) Eye Contact: + fair eye contact (appears to be avoiding direct eye contact with this provider ) Motor Behavior: no abnormal motor movements (observed while sitting in day area ) Speech: normal rate/rhythm/volume of speech (irritable tone) Affect: + blunted affect Mood: "I'm fine" Thought Process: goal directed thought process Thought Content: + paranoid, + delusions and + persecution Suicidal Thoughts: denies suicidal thoughts Homicidal Thoughts: denies homicidal thoughts Hallucinations: no auditory hallucinations and no visual hallucinations Cognition: attention grossly intact and language grossly intact Insight: + severely impaired insight Judgement: + poor judgement Vital Signs (Past 24 Hours) Last Vital Signs Temp 37 C 12/14/19 06:29 Pulse 87 12/14/19 06:31 Resp 18 12/14/19 06:29 BP 116/67 12/14/19 06:31 Pulse Ox 98 11/14/19 20:15 Results & Data ([facility]) Current Inpatient Medications Current Inpatient Medications: Current Inpatient Medications Acetaminophen (Tylenol) 650 mg PO Q4H PRN PRN Reason: Headache or Minor Fever Stop: 01/10/20 20:43 Al Hydrox/Mg Hydrox/Simethicone (Maalox) 30 ml PO Q4H PRN PRN Reason: GI Upset Stop: 01/10/20 20:43 Bismuth Subsalicylate (Kaopectate) 15 ml PO PRN PRN PRN Reason: Loose Stool Stop: 01/10/20 20:43 Hydroxyzine HCl (Vistaril) 50 mg PO HSZ PRN PRN Reason: Insomnia Stop: 01/10/20 20:43 Hydroxyzine HCl (Vistaril) 25 mg PO Q4H PRN PRN Reason: Anxiety Stop: 01/10/20 20:43 Magnesium Hydroxide (Milk Of Magnesia) 30 ml PO DAILY PRN PRN Reason: Constipation Stop: 01/10/20 20:43 Centrum Silver Men's : Non-Formulary Patient's Own Med 1 ea PO QAM ADRIANE Stop: 01/13/20 08:59 Last Admin: 12/14/19 08:25 Dose: 1 tab Documented by: Olanzapine (Zyprexa Zydis Od) 10 mg PO HS ADRIANE Stop: 12/20/19 21:59 Last Admin: 12/13/19 21:56 Dose: Not Given Documented by: Olanzapine (Zyprexa) 10 mg IM HS PRN PRN Reason: Refusal of PO olanzapine Stop: 01/10/20 21:59 Last Admin: 12/13/19 22:01 Dose: 10 mg Documented by: Sodium Chloride ([place] Nasal) 1 - 2 sprays NA PRN PRN PRN Reason: Nasal Dryness/Congestion Stop: 01/10/20 20:43 Last Admin: 11/20/19 23:10 Dose: 2 sprays Documented by: Post Discharge Appointments Primary Care Physician Name Of Family Doctor: [facility] - Dr. Jeffrey Torres Primary Care Provider Appointment Comment: [address], [address], [place] [address] Other #1: Name of Aftercare Appointment: [facility] - Preeti Kelly Phone Number of Aftercare Appointment: [phone] Contact Information Discharge Discharge Address: [address] [place] [address], [id number], [place] [address]
[2019-12-14] MEDS: OLANZAPINE ZYDIS 10 MG ORALLY DIS. TAB PO SCH (21:50)
[2019-12-14] MEDS: OLANZapine 10 MG/2.1 ML SDV IM PRN (21:51)
[2019-12-15] MEDS: MULTIVITAMIN PO SCH (08:27)
--- NOTE | 2019-12-15 08:53 | Psychiatric Progress Note ---
Date of Service December 15, 2019 Impression / Recommendations Impression 59-year-old male admitted involuntarily for inpatient psychiatric treatment. Primary diagnosis of delusional disorder, persecutory type. Information provided by his indicates that several years ago certain changes in his department at the [place] triggered a certain amount of distrust by the patient, which gradually grew into the elaborate, highly systematized delusional belief system that is currently in place. His delusional system was likely amplified by his tendency to obsess, focus on patterns, and look for theoretical explanations. While patient is highly attached to these delusional beliefs and is demonstrating inability/unwillingness to consider they may not be accurate - the primary safety concern surrounding his condition is the fact that he had been demonstrating highly agitated behavior which was threatening the safety of himself and his (throwing furniture at mckeon, ripping off door frames, etc). Although his behavior on the unit has been free of threats and violence, he is refusing to involve his , who reports fear for her safety given his behavior (violence directed at her prior to admission) and the fact that he has implicated her in his delusional system and believes she is conspiring within [place] government against him. Further, he is uncooperative with treatment, is refusing medication (although not resisting when given intramuscular injections of olanzapine), and declining outpatient treatment. This is a difficult and complex situation. The patient's dyscontrol behavior does not seem to be specific to his , and even were he to leave the hospital without going home to his , the behaviors described by his give reason to predict that he would quickly become a danger to himself or other people in the community. He lacks insight, and expresses a firm belief that he is on a mission to protect and save innocent people. His calmer behavior here is also within the context of his taking psychiatric medications, and he has made it abundantly clear that he will not consider taking any psychiatric medication unless it is forced on him in the hospital. 304 extended involuntarily commitment was granted on 11/30, and referral to the [facility] has been sent as he remains a danger to himself and others and is refusing to engage in conversation regarding alternative discharge options. As time has progressed, it appears that he is not responding favorably to olanzapine. He continues to adamantly refuse any type of psychotropic medication voluntarily. At a dose of olanzapine 15 mg intramuscularly at bedtime the patient's behavior on the unit was pleasant and fairly passive (with the exception of increased irritability during meetings with psychiatric providers). However, his delusional belief system remained completely untouched as best we can tell and he began to demonstrate excessive sedation at this higher dose. Does was reduced to 10mg IM on 12/10 with reported improvement in alertness throughout the day. He has since returned to working on mathematical equations. He continues to be incorporating staff and psychiatric providers into his delusional system. (1) Delusional disorder: 11/14 Patient admitted on an involuntary status to the behavioral health unit for continued assessment and treatment as indicated He will be maintained on every 15 minute safety checks We will continue to expand database Consider neuroimaging for w/u of psychosis prn orders for Ativan and Haldol today. I suspect it is likely that he will require medications over objection before he permits any treatment due to what appears to be severely impaired insight. Patient will be reevaluated tomorrow for psychiatric second opinion regarding need for treatment over objection. -presently patient requires continued inpatient hospitalization for workup and treatment of psychosis which was been recently associated with some violent behavior at home. he is at risk of harm to self and others if discharged prematurely. 11/15 -File for 303 involuntary commitment. -Patient is refusing to consider medication, but has haloperidol and Ativan as needed ordered. Would recommend a trial of olanzapine, and agree with medications over objection as he has severe psychotic symptoms which are impairing his ability to function and placing both himself and others at risk of harm due to his violent behavior at home. -Patient is refused to answer questions about whether or not he has guns, so we will need to get this information from his . At this point he is re fusing to sign a release for her or anyone else. -Excuse patient from groups due to the severity of his psychosis and violent behavior. Medically necessary private room room due to the same. 11/16 -303 involuntary commitment granted. -Patient continues to refuse to allow his to be involved in treatment. He is now not denying that he was aggressive at home, but is refusing to discuss it, and is focused only on the conspiracy which he says led to his behavior. -Continue to consider medications over objection. At this point, we are attempting to engage the patient in treatment volitionally, and the risk of forcing medications at this time is further alienating him. However, if he is unable to engage in any manner, we will need to reconsider medications over objection. -Patient may attend groups if able to maintain appropriate behavioral control. -Patient has still not been willing to complete admission assessments, and has not been willing to provide certain information. 4/ -Recommend medications over objection, as the patient is unable to engage in treatment due to the severity of his psychosis and lack of insight, and remains at imminent risk of harm to others, specifically his , if his symptoms remain untreated. He is floridly delusional, now implicating hospital staff in his delusions. He is not able to work as a result of his psychosis, and his is not able to work due to having to supervise him, and is fearful of him given his escalating violence at home. He continues to refuse to allow her to be involved in treatment, is not attending groups, and is refusing to even discuss medication options. Dr. Duarte recommended medications over objection, and I agree, as the patient is unlikely to improve without antips ychotic medication. -Start olanzapine Zydis 5 mg daily, with a 5 mg IM backup for refusal. Order FLP and FG tomorrow for baseline on an atypical antipsychotic. He will also need a medical work-up of psychosis once he is more cooperative, including brain MRI. -Ongoing poor sleep, staff will limit bright lights near his room at night, and if he can be compliant with medication, can move olanzapine to bedtime to assist with sleep. Giving during the day initially to allow for adequate staff in case of need for physical hold or restraint to receive medication. 4/2 - Continue olanzapine 5mg daily (offering PO Zydis with IM for refusal) - medications over objection, though patient has been cooperative with his preference for IM administration - Pt offered again PO olanzapine, with the eventual option of converting the medication to HS dosing if he continues to be cooperative - as he reports sedation after receiving the medication - Pt remains delusional and paranoid, unable to discuss examples of how we can assist him during his stay - Maintain MNPR due to level of psychosis - Fasting glucose - wnl at 90; triglycerides elevated at 188, remainder of lipid panel wnl - Continue attempts to coordinate care with patient's 11/19 -Patient is continuing to say that he does not wish for us to speak with his , and he again tells us that he will not sign a consent that will allow us to contact her. As above, his assertion is that he does not want us talking to her because she may tell us things that we will include in the record and that will eventually be used against him, either by the government or by [facility]. As a compromise, the patient says that he will ask his to call us and tell us whether she continues to feel that he is a danger to her, himself, or to anyone else. It was explained that we would also need to be able to talk to her about our concerns and we would need to coordinate aftercare arrangements with her. The patient replied to that by saying simply that he would not allow us to say anything about his care or recommended treatment to her at this time. -There seem to be some early indications that the patient may be responding t o olanzapine. Today, when I told him that our concerns about his safety had not to do with his behaviors here in the hospital but, instead, about his behaviors at home (in the community) he quickly responded, "yes, but I am getting medication here!" (He almost immediately realized the implication of what he had just said, and he immediately changed the subject and began talking about how various entities were deliberately provoking him into losing his temper and acting in anger. -The patient tells us that he is using the fact that he has been given intramuscular medications against his will as evidence of our being the "dupes" or agents of the entities behind the conspiracy to silence him. He also reiterates that he believes that taking medication voluntarily is tantamount to acknowledging his need for psychiatric treatment, and he tells us that he has absolutely no psychiatric problem at all and does not need any treatment. -Today, we are increasing his olanzapine's as follows. We will begin olanzapine ODT 10 mg at bedtime starting tonight. We have also changed his order for medications over objection to olanzapine 10 mg IM daily for refusal of p.o. olanzapine. -Although the patient's presentation has many of the symptoms of a delusional disorder, persecutory typegiven the elaborate nature of the delusional system, we continue to suspect that what we are seeing is a somewhat atypical jorge, or discrete manic episodes overlaying a underlying delusional disorder. If the explanation for the patient's presentation is symptoms of a manic episode, his prognosis is better. We discussed the possibility of adding an antiobsessional medication which sometimes helps with pure delusional disorders, but the patient says that, absolutely, he will not take any medication that we offer him voluntarily. 11/22--continue Zyprexa IM hs, continues to refuse family meeting with due to paranoia, refuses 2-3 trial of PO Invega to convert to injectable. 11/23--File for 304 hearing d/t ongoing psychosis, lack of insight, refusal for outpatient treatment or ongoing medication, refusal to involve , and high risk for return to violent behavior if home w/ , whom he believes is part of the conspiracy against him. 11/24 - Continue olanzapine IM, continuing to offer patient PO medication which he is consistently refusing - Pt continues to refuse to involve in conversations regarding discharge and safety planning - 304 hearing scheduled for 11/30; pt continues to be psychotic and remains unable to engage in productive safety and discharge planing, therefore remains at high risk of harm to sefl or others if he is discharged home in his current state 11/25 - Titrating olanzapine to 10mg daily; patient continues to refuse offer for PO and is therefore continuing to receive IM injections each evening - 304 hearing 11/30; pt continues to be unwilling to participate in safety and discharge planning efforts 11/26 -The patient tells me that he received olanzapine 10 mg last evening and says that he feels that it has helped him sleep better. However, he notes that his sleep difficulty is related to the fact that his sleep schedule in the hospital is substantially different from the one that he is used to at home, with bedtime here at the hospital being 3 or 4 hours earlier than he is used to. Nevertheless, he says that he believes that he is not having any side effects from olanzapine and that, in the sense that it does help him fall asleep, it helps. Nevertheless, he also repeats today that he will not continue to take any medication, including olanzapine, if he is discharged. -I spoke with the patient's today, without disclosing any protected clinical data regarding the patient. She acknowledges that he frightens her, and, particularly recently, has caused her to fear for her personal physical safety. At the same time, she says tells me that she thinks that if she gets some advice about how best to "handle somebody who is delusional" possibly by getting into individual therapy, herself, she may be able to take him home. She also reports that should he be released (she is aware of upcoming hearing) that she will agree to take him home, because she loves him and wants to protect him, but continues to fear that he may again lose control of his behavior as a function of his delusions. -Today, the patient tells me that he recognizes that in his upcoming hearing on 11/30 (304) the issue may boil down to whether he can assure that he will be safe in the community and will not represent a risk to anyone else, even if he does not take medication. He also says that he recognizes the "Catch-22" that he is in because he realizes that the hospital is likely to say that his behavior in the hospital has been positively influenced by his taking olanzapine, and that without the structure of the hospital and without the medications, he may revert to the dangerous behaviors that precipitated the a dmission. -Of concern is the fact that the patient's tells us today that, effective yesterday, he has told her that he will no longer speak to her telephonically, and if he is released from the hospital on Saturday he will simply walk home, and if she is not comfortable being home with him she should leave. However, by the end of today he is allowing that he truly believes that his loves him and would not try to harm him if she had any choice, so he is at least considering contacting her again by telephone. 11/27 -Patient informed of 304 hearing and plan to refer to the [facility], as well as additional labs needed for that referral. -He continues to refuse a family meeting with his , who has expressed ongoing concern for her safety. He continues to refuse p.o. medication, outpatient treatment, and discussion of his aggression at home or plans to mitigate it. He remains at risk of harm to others, particularly his , and if discharged prematurely, as she is implicated in his delusion and he believes she has part of the conspiracy against him. -Encourage the patient to attend groups and focus on his own emotional reaction to his perception of events, healthy coping skills, and a discharge safety plan; all of which thus far he has been unwilling to do. 11/28 - 11/29 -Patient refused PPD, EKG, and chest x-ray for critical access hospital hospital referral. He is refusing to consider a trial of Invega/MERCADO, and continues to refuse a family meeting. -304 involuntary commitment hearing scheduled for 12/01/2019, and will then pursue referral to the [facility]. 11/30 - 304 involuntary commitment granted today, referral to the [facility] is reportedly supported by the [facility] at this time - Pt was again offered PPD, EKG and CXR for [facility] referral, which he again declined - Although he is not overtly refusing medication changes, he does verbalize desire to give olanzapine "another week" before switching to another agent. 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 He remains delusional and without insight, refusing medication (although getting the IM of Zyprexa daily), a family meeting, or discharge planning/outpatient care. -Recommend referral to [facility] for long-term inpatient treatment, will simultaneously referring for a BCM and working on potential diversion plans. 12/02 - Continue IM olanzapine - as continues to refuse oral medications or discussion regarding alternative agents - Most documentation sent to [facility] for referral - awaiting 303 and 304 findings to be sent and will then fax these as well - Pt continues to decline medical tests generally requested as part of [facility] referral, but cannot force these studies to be done 12/03 -We will increase his dose of IM olanzapine to 12.5 mg at bedtime. The medication thus far does not seem to have had much of a favorable impact on the patient's delusional belief system, and he is not willing to consider an tiobsessional medications in the form of a selective serotonin reuptake inhibitor. However, the patient is now sleeping better and his general demeanor has been more calm, more pleasant, and more self-possessed. -The patient reports that he does not feel that he is experiencing any side effects from olanzapine, but fall short of saying that it is helping him in any way, other than perhaps for sleep. He mentions that he sometimes has a pain in his left abdominal wall and lower rib cage that he says he does not feel as a side effect from medication but, rather, the result of his doing sit ups and his bedroom by placing his feet under the mattress and exercising in that way. 12/04 - 12/05 -Zyprexa 12.5 mg IM po qhs, sedation from yesterday seems to be resolving, can likely be increased tomorrow. 12/06 - Continue Zyprexa 12.5mg IM this evening - continue attempts to engage patient in conversation regarding dose increases or consideration of alternative agents - Pt continues to be unwilling to participate in conversation regarding alternative discharge plans to state hospitalization. He continues to refuse to involve his or any other outpatient support in safety/discharge planning. - Referral to [facility] was completed and is reportedly being reviewed. 12/07 - Titrating Zyprexa 15mg IM - patient continues to refuse offer for oral medications. Pt was offered discussion about alternative agents, but declined. - Referral officially received by [facility] on 12/02/2019 (304 findings to be sent once received) - awaiting response regarding acceptance decision - Continue attempts to engage patient in discharge and safety planning - patient continues to be unwilling to discuss possible diversion plans 12/08 - 12/09 - Continue Zyprexa 15mg IM - pt continuing to refuse oral medications - Awaiting response from [facility] regarding referral - Pt remains unwilling to participate in safety planning or exploring diversion plan 12/10 -Patient is exhibiting excess sedation add Zyprexa 15 mg IM at bedtime. Specifically, the patient is observed to be hypersomnolent, has been sleeping off and on throughout the days, and indicates that he feels that at this higher dose of Zyprexa he is experiencing some cognitive slowing. At the same time, he does not seem to be responding to Zyprexa either at high doses or at low doses, other than it may be contributing to his ability to maintain self possession and avoid these sorts of dyscontroled behaviors that precipitated the current admission (for example, breaking furniture, knocking holes in the mckeon of his home, and tearing out shards of woodwork and ways that frightened his ). -The patient remains delusional and harbors an elaborate persecutory delusional system that he often hits that, but is reluctant to discuss in detail much of the time because he says that he fears that information that he shares with us will fall into the wrong hands and will interfere with his ability to expose those persons who he feels are responsible for the referenced "crimes against humanity." -The patient when asked, convincingly states that he is not having any thoughts of extracting retribution from the individuals and entities that he holds responsible for his delusional construct regarding "crimes against humanity," other than to expose them by publishing proof of their crimes. Specifically, he says that he has no plan to cause physical harm to the person or property of others and says that he will leave the question of punishment to those who are lawful he entitled to impose it. -Because the patient's delusional belief seem not to be responding favorably to olanzapine at the higher dose, and because he is exhibiting some symptoms of excess sedation associated with olanzapine at 15 mg daily, his dose of olanzapine (to be given IM if necessary for refusal of p.o. olanzapine) will be reduced to olanzapine 10 mg IM at bedtime, starting tonight. 12/11 The patient is less sedated at the 10 mg of olanzapine IM he continues to refuse oral medications. Provider did again re-present the role of an SSRI that may help but he is clear and adamant about refusal of all medications. 12/12 - he is slightly less sedated at 10mg olanzapine IM each hs, but is more agitated today that he had been and more profuse with this provider about his delusional beliefs and seeing this provider and all medical care here as passive pawns of a broader conspiracy through the [employer]. He continues to decline oral medications, or any form of aftercare for monitoring of irritability and agitation maintaining that he does not have any mental illness and that all he has is "truth." Presently his risk of continuing to incorporate anyone who disagrees with his delusion into the delusion, his unwillingness to take medications after discharge, and unwillingness to participate any form of routine relationship with a behavioral health provider after discharge, and incorporation of his in his delusional system with prior physical aggression are concerning. I believe ongoing inpatient hospitalization is most appropriate setting for care at this time 12/13 - Continue olanzapine 10mg IM each evening (patient continues to refuse PO medications or discussion regarding alternative agents. - Pt continues to appear sedated, though is spending more time out of his room in the afternoons. - Anticipate decision regarding [facility] referral in the next few days 12/14 - Continue current treatment plan, patient reporting improvement in fatigue today - Anticipate update from [facility] soon regarding decision on referral - Pt continues to be resistant to attempts to safety plan or discuss alternative discharge options Risk Factors Assessment Male: Yes : Yes Do You Have Access To A Gun?: No ( denies that they have any guns at home) Health Problems: No Mental Health Diagnoses: Yes Substance Use Disorders: No Previous Attempt: No Previous Psychiatric Hospitalization: No Hopelessness: No Smoker: No Protective Factors Assessment : Yes Responsible for Young Children: No Employed: No Stable Relationships: No ( is supportive, but fearful of him due to his violence towards her.) Good Rapport with Provider: No (No outpatient providers.) Interval History Identifying Information SAL MAGANA is a 59-year-old M admitted on 11/14/19 19:58 on a 302 involuntary commitment for paranoia and violence at home, on a 304 extended involuntary commitment as of 11/30. Chief Complaint "I'm fine. I got a full sleep last night." Review of Systems Notes Constitutional: reports "full sleep" last evening, reports improvement in daytime fatigue Cardiovascular: denied Respiratory: denied Gastrointestinal: denied Neurological: denied Psychiatric: denies symptoms other than stated above Total of at least 10 systems reviewed, pertinent positives as above and in HPI. Sleep Information Total Hours of Sleep: 6 Sleep Comments: he read in bed and was then asleep on 0030 rounds. Meal Information Percent Meal Consumed - Breakfast: 100 Percent Meal Consumed - Lunch: 50 Percent Meal Consumed - Dinner: 100 Nutrition Comment: per meal record Subjective Subjective Patient was seen & assessed and interval progress reviewed with nursing and social work. Staff report the patient has been appearing less fatigued and has been out of his room more often, though he continues to refuse to attend group programming. Communication from [facility] is anticipated regarding the status of the referral. Pt was seen today to assess progress since admission. Pt states that he is feeling "fine" and reports "I got a full sleep last night, I was up at 8." Pt states that he is still feeling tired during the day, but believes the sedation is improving overall. Pt is more willing today to discuss his ongoing delusional beliefs, but then becomes more argumentative as the conversation continues. Pt states he continues to write his "book" (a combination of mathematical equations and accounts of persecution related to being fired from the [employer]). Pt continues to states "it is obviously just your plan that I remain here until I go to the [facility] where I can be locked up and kept quiet forever. This provider reiterated that this plan has come from his limited willingness to engage in safety planning efforts, and was again offered to engage in this conversation if desired. Pt maintains that "you are only acting with the information you've been given, that there is a reason I need to be locked up in order to protect the truth." This provider responded by informing patient that, while he has made it obvious that he believes this to be the case, that we as staff are more focused on working with him to ensure ongoing safety moving forward. Pt interrupted this provider and defensively stated "do you realize how suggestive you're being in your language? Everything you're saying implies 'you have a delusional disorder'." Although this provider attempted to keep the topic on efforts to safety plan, patient continued to interrupt saying "you think I have a delusional disorder, but this is the safety plan." When patient was asked to explain this statement, he said "have you ever stopped to think that it is actually in the best interest of those I care about and those that need protected that I be locked up? Have you stopped to think that that's what they believe needs to happen?" When the questions was turned back to the patient and this provider asked "do YOU believe that it is in their best interest that you be here?" patient mutters for a moment and then states "I'm not going to answer that." He remains resistant to conversation about safety/discharge planning or trials of alternative antipsychotic agents. He denies other needs or concerns at this time. Physical Exam Psychiatric Orientation: alert and + guarded (argumentative) Apperance: appropriately dressed (but wearing same clothes for several days) and + disheveled (long skinner hair, appearing more unkempt) Eye Contact: + poor eye contact (avoiding direct eye contact at times) Motor Behavior: no abnormal motor movements (observed while sitting at table in the day area) Speech: normal rate/rhythm/volume of speech (irritable tone, argumentative ) Affect: + irritable affect Thought Process: + circumstantial thought process; + thought process not linear or logical (making illogical arguments) Thought Content: + preoccupation, + paranoid, + delusions and + persecution Suicidal Thoughts: denies suicidal thoughts Homicidal Thoughts: denies homicidal thoughts Hallucinations: no auditory hallucinations and no visual hallucinations Cognition: attention grossly intact and language grossly intact Insight: + severely impaired insight Judgement: + poor judgement Vital Signs (Past 24 Hours) Last Vital Signs Temp 36.7 C 12/15/19 06:43 Pulse 62 12/15/19 06:45 Resp 16 12/15/19 06:43 BP 113/74 12/15/19 06:45 Pulse Ox 98 11/14/19 20:15 Results & Data ([facility]) Current Inpatient Medications Current Inpatient Medications: Current Inpatient Medications Acetaminophen (Tylenol) 650 mg PO Q4H PRN PRN Reason: Headache or Minor Fever Stop: 01/10/20 20:43 Al Hydrox/Mg Hydrox/Simethicone (Maalox) 30 ml PO Q4H PRN PRN Reason: GI Upset Stop: 01/10/20 20:43 Bismuth Subsalicylate (Kaopectate) 15 ml PO PRN PRN PRN Reason: Loose Stool Stop: 01/10/20 20:43 Hydroxyzine HCl (Vistaril) 50 mg PO HSZ PRN PRN Reason: Insomnia Stop: 01/10/20 20:43 Hydroxyzine HCl (Vistaril) 25 mg PO Q4H PRN PRN Reason: Anxiety Stop: 01/10/20 20:43 Magnesium Hydroxide (Milk Of Magnesia) 30 ml PO DAILY PRN PRN Reason: Constipation Stop: 01/10/20 20:43 Centrum Silver Men's : Non-Formulary Patient's Own Med 1 ea PO QAM ADRIANE Stop: 05/27/20 08:59 Last Admin: 12/15/19 08:27 Dose: 1 tab Documented by: Olanzapine (Zyprexa Zydis Od) 10 mg PO HS ADRIANE Stop: 12/20/19 21:59 Last Admin: 12/14/19 21:50 Dose: Not Given Documented by: Olanzapine (Zyprexa) 10 mg IM HS PRN PRN Reason: Refusal of PO olanzapine Stop: 01/10/20 21:59 Last Admin: 12/14/19 21:51 Dose: 10 mg Documented by: Sodium Chloride ([place] Nasal) 1 - 2 sprays NA PRN PRN PRN Reason: Nasal Dryness/Congestion Stop: 01/10/20 20:43 Last Admin: 11/20/19 23:10 Dose: 2 sprays Documented by: Post Discharge Appointments Primary Care Physician Name Of Family Doctor: [place] [facility] - Dr. Jeffrey Torres Primary Care Provider Appointment Comment: [id number], [address], [place] [address] Other #1: Name of Aftercare Appointment: [facility] [facility] - Desmond Kelly Phone Number of Aftercare Appointment: [phone] Contact Information Discharge Discharge Address: [address] [place] [address], [id number], [place] [address]
[2019-12-15] MEDS: OLANZapine 10 MG/2.1 ML SDV IM PRN (22:30)
[2019-12-15] MEDS: OLANZAPINE ZYDIS 10 MG ORALLY DIS. TAB PO SCH (22:31)
[2019-12-15] MEDS: SODIUM CHLORIDE 0.65% NA SOLN 45 ML (OCEAN) PRN (23:37)
[2019-12-16] MEDS: MULTIVITAMIN PO SCH (08:38)
--- NOTE | 2019-12-16 12:41 | Psychiatric Progress Note ---
Date of Service December 16, 2019 Impression / Recommendations Impression 59-year-old male admitted involuntarily for inpatient psychiatric treatment. Primary diagnosis of delusional disorder, persecutory type. Information provided by his indicates that several years ago certain changes in his department at the [facility] triggered a certain amount of distrust by the patient, which gradually grew into the elaborate, highly systematized delusional belief system that is currently in place. His delusional system was likely amplified by his tendency to obsess, focus on patterns, and look for theoretical explanations. While patient is highly attached to these delusional beliefs and is demonstrating inability/unwillingness to consider they may not be accurate - the primary safety concern surrounding his condition is the fact that he had been demonstrating highly agitated behavior which was threatening the safety of himself and his (throwing furniture at mckeon, ripping off door frames, etc). Although his behavior on the unit has been free of threats and violence, he is refusing to involve his , who reports fear for her safety given his behavior (violence directed at her prior to admission) and the fact that he has implicated her in his delusional system and believes she is conspiring within [place] government against him. Further, he is uncooperative with treatment, is refusing medication (although not resisting when given intramuscular injections of olanzapine), and declining outpatient treatment. This is a difficult and complex situation. The patient's dyscontrol behavior does not seem to be specific to his , and even were he to leave the hospital without going home to his , the behaviors described by his give reason to predict that he would quickly become a danger to himself or other people in the community. He lacks insight, and expresses a firm belief that he is on a mission to protect and save innocent people. His calmer behavior here is also within the context of his taking psychiatric medications, and he has made it abundantly clear that he will not consider taking any psychiatric medication unless it is forced on him in the hospital. 304 extended involuntarily commitment was granted on 11/30, and referral to the [facility] has been sent as he remains a danger to himself and others and is refusing to engage in conversation regarding alternative discharge options. As time has progressed, it appears that he is not responding favorably to olanzapine. He continues to adamantly refuse any type of psychotropic medication voluntarily. At a dose of olanzapine 15 mg intramuscularly at bedtime the patient's behavior on the unit was pleasant and fairly passive (with the exception of increased irritability during meetings with psychiatric providers). However, his delusional belief system remained completely untouched as best we can tell and he began to demonstrate excessive sedation at this higher dose. Does was reduced to 10mg IM on 12/10 with reported improvement in alertness throughout the day. Received request for organic work-up from [facility] prior to patient's acceptance. Unfortunately, patient is unwilling to complete these studies (anticipated ordering MRI, heavy metal studies, B12 and folate). Pt not able/willing to participate with any other cognitive assessments today. He continues to be incorporating staff and psychiatric providers into his delusional system. (1) Delusional disorder: 11/14 Patient admitted on an involuntary status to the behavioral health unit for continued assessment and treatment as indicated He will be maintained on every 15 minute safety checks We will continue to expand database Consider neuroimaging for w/u of psychosis prn orders for Ativan and Haldol today. I suspect it is likely that he will require medications over objection before he permits any treatment due to what appears to be severely impaired insight. Patient will be reevaluated tomorrow for psychiatric second opinion regarding need for treatment over objection. -presently patient requires continued inpatient hospitalization for workup and treatment of psychosis which was been recently associated with some violent behavior at home. he is at risk of harm to self and others if discharged prematurely. 11/15 -File for 303 involuntary commitment. -Patient is refusing to consider medication, but has haloperidol and Ativan as needed ordered. Would recommend a trial of olanzapine, and agree with medications over objection as he has severe psychotic symptoms which are impairing his ability to function and placing both himself and others at risk of harm due to his violent behavior at home. -Patient is refused to answer questions about whether or not he has guns, so we will need to get this information from his . At this point he is refusing to sign a release for her or anyone else. -Excuse patient from groups due to the severity of his psychosis and violent behavior. Medically necessary private room room due to the same. 11/16 -303 involuntary commitment granted. -Patient continues to refuse to allow his to be involved in treatment. He is now not denying that he was aggressive at home, but is refusing to discuss it, and is focused only on the conspiracy which he says led to his behavior. -Continue to consider medications over objection. At this point, we are attempting to engage the patient in treatment volitionally, and the risk of forcing medications at this time is further alienating him. However, if he is unable to engage in any manner, we will need to reconsider medications over objection. -Patient may attend groups if able to maintain appropriate behavioral control. -Patient has still not been willing to complete admission assessments, and has not been willing to provide certain information. 4/ -Recommend medications over objection, as the patient is unable to engage in treatment due to the severity of his psychosis and lack of insight, and remains at imminent risk of harm to others, specifically his , if his symptoms remain untreated. He is floridly delusional, now implicating hospital staff in his delusions. He is not able to work as a result of his psychosis, and his is not able to work due to having to supervise him, and is fearful of him given his escalating violence at home. He continues to refuse to allow her to be involved in treatment, is not attending groups, and is refusing to even discuss medication options. Dr. Duarte recommended medications over objection, and I agree, as the patient is unlikely to improve without antipsychotic medication. -Start olanzapine Zydis 5 mg daily, with a 5 mg IM backup for refusal. Order FLP and FG tomorrow for baseline on an atypical antipsychotic. He will also need a medical work-up of psychosis once he is more cooperative, including brain MRI. -Ongoing poor sleep, staff will limit bright lights near his room at night, and if he can be compliant with medication, can move olanzapine to bedtime to assist with sleep. Giving during the day initially to allow for adequate staff in case of need for physical hold or restraint to receive medication. 11/18 - Continue olanzapine 5mg daily (offering PO Zydis with IM for refusal) - medications over objection, though patient has been cooperative with his preference for IM administration - Pt offered again PO olanzapine, with the eventual option of converting the medication to HS dosing if he continues to be cooperative - as he reports sedation after receiving the medication - Pt remains delusional and paranoid, unable to discuss examples of how we can assist him during his stay - Maintain MNPR due to level of psychosis - Fasting glucose - wnl at 90; triglycerides elevated at 188, remainder of lipid panel wnl - Continue attempts to coordinate care with patient's 11/19 -Patient is continuing to say that he does not wish for us to speak with his , and he again tells us that he will not sign a consent that will allow us to contact her. As above, his assertion is that he does not want us talking to her because she may tell us things that we will include in the record and that will eventually be used against him, either by the government or by [facility]. As a compromise, the patient says that he will ask his to call us and tell us whether she continues to feel that he is a danger to her, himself, or to anyone else. It was explained that we would also need to be able to talk to her about our concerns and we would need to coordinate aftercare arrangements with her. The patient replied to that by saying simply that he would not allow us to say anything about his care or recommended treatment to her at this time. -There seem to be some early indications that the patient may be responding to olanzapine. Today, when I told him that our concerns about his safety had not to do with his behaviors here in the hospital but, instead, about his beha viors at home (in the community) he quickly responded, "yes, but I am getting medication here!" (He almost immediately realized the implication of what he had just said, and he immediately changed the subject and began talking about how various entities were deliberately provoking him into losing his temper and acting in anger. -The patient tells us that he is using the fact that he has been given intramuscular medications against his will as evidence of our being the "dupes" or agents of the entities behind the conspiracy to silence him. He also reiterates that he believes that taking medication voluntarily is tantamount to acknowledging his need for psychiatric treatment, and he tells us that he has absolutely no psychiatric problem at all and does not need any treatment. -Today, we are increasing his olanzapine's as follows. We will begin olanzapine ODT 10 mg at bedtime starting tonight. We have also changed his order for medications over objection to olanzapine 10 mg IM daily for refusal of p.o. olanzapine. -Although the patient's presentation has many of the symptoms of a delusional disorder, persecutory typegiven the elaborate nature of the delusional system, we continue to suspect that what we are seeing is a somewhat atypical jorge, or discrete manic episodes overlaying a underlying delusional disorder. If the explanation for the patient's presentation is symptoms of a manic episode, his prognosis is better. We discussed the possibility of adding an antiobsessional medication which sometimes helps with pure delusional disorders, but the patient says that, absolutely, he will not take any medication that we offer him voluntarily. 11/22--continue Zyprexa IM hs, continues to refuse family meeting with due to paranoia, refuses 2-3 trial of PO Invega to convert to injectable. 11/23--File for 304 hearing d/t ongoing psychosis, lack of insight, refusal for outpatient treatment or ongoing medication, refusal to involve , and high risk for return to violent behavior if home w/ , whom he believes is part of the conspiracy against him. 11/24 - Continue olanzapine IM, continuing to offer patient PO medication which he is consistently refusing - Pt continues to refuse to involve in conversations regarding discharge and safety planning - 304 hearing scheduled for 11/30; pt continues to be psychotic and remains unable to engage in productive safety and discharge planing, therefore remains at high risk of harm to sefl or others if he is discharged home in his current state 11/25 - Titrating olanzapine to 10mg daily; patient continues to refuse offer for PO and is therefore continuing to receive IM injections each evening - 304 hearing 11/30; pt continues to be unwilling to participate in safety and discharge planning efforts 11/26 -The patient tells me that he received olanzapine 10 mg last evening and says that he feels that it has helped him sleep better. However, he notes that his sleep difficulty is related to the fact that his sleep schedule in the hospital is substantially different from the one that he is used to at home, with bedtime here at the hospital being 3 or 4 hours earlier than he is used to. Nevertheless, he says that he believes that he is not having any side effects from olanzapine and that, in the sense that it does help him fall asleep, it helps. Nevertheless, he also repeats today that he will not continue to take any medication, including olanzapine, if he is discharged. -I spoke with the patient's today, without disclosing any protected clinical data regarding the patient. She acknowledges that he frightens her, and, particularly recently, has caused her to fear for her personal physical safety. At the same time, she says tells me that she thinks that if she gets some advice about how best to "handle somebody who is delusional" possibly by getting into individual therapy, herself, she may be able to take him home. She also reports that should he be released (she is aware of upcoming hearing) that she will agree to take him home, because she loves him and wants to protect him, but continues to fear that he may again lose control of his behavior as a function of his delusions. -Today, the patient tells me that he recognizes that in his upcoming hearing on 11/30 (304) the issue may boil down to whether he can assure that he will be safe in the community and will not represent a risk to anyone else, even if he does not take medication. He also says that he recognizes the "Catch-22" that he is in because he realizes that the hospital is likely to say that his behavior in the hospital has been positively influenced by his taking olanzapine, and that without the structure of the hospital and without the medications, he may revert to the dangerous behaviors that precipitated the admission. -Of concern is the fact that the patient's tells us today that, effective yesterday, he has told her that he will no longer speak to her te lephonically, and if he is released from the hospital on Saturday he will simply walk home, and if she is not comfortable being home with him she should leave. However, by the end of today he is allowing that he truly believes that his loves him and would not try to harm him if she had any choice, so he is at least considering contacting her again by telephone. 11/27 -Patient informed of 304 hearing and plan to refer to the [facility], as well as additional labs needed for that referral. -He continues to refuse a family meeting with his , who has expressed ongoing concern for her safety. He continues to refuse p.o. medication, outpatient treatment, and discussion of his aggression at home or plans to mitigate it. He remains at risk of harm to others, particularly his , and if discharged prematurely, as she is implicated in his delusion and he believes she has part of the conspiracy against him. -Encourage the patient to attend groups and focus on his own emotional reaction to his perception of events, healthy coping skills, and a discharge safety plan; all of which thus far he has been unwilling to do. 11/28 - 11/29 -Patient refused PPD, EKG, and chest x-ray for [facility] hospital referral. He is refusing to consider a trial of Invega/MERCADO, and continues to refuse a family meeting. -304 involuntary commitment hearing scheduled for 12/01/2019, and will then pu rsue referral to the [facility]. 11/30 - 304 involuntary commitment granted today, referral to the [facility] is reportedly supported by the [facility] at this time - Pt was again offered PPD, EKG and CXR for [facility] referral, which he again declined - Although he is not overtly refusing medication changes, he does verbalize desire to give olanzapine "another week" before switching to another agent. 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 He remains delusional and without insight, refusing medication (although getting the IM of Zyprexa daily), a family meeting, or discharge planning/outpatient care. -Recommend referral to [facility] for long-term inpatient treatment, will simultaneously referring for a BCM and working on potential d iversion plans. 12/02 - Continue IM olanzapine - as continues to refuse oral medications or discussion regarding alternative agents - Most documentation sent to [facility] for referral - awaiting 303 and 304 findings to be sent and will then fax these as well - Pt continues to decline medical tests generally requested as part of [facility] referral, but cannot force these studies to be done 12/03 -We will increase his dose of IM olanzapine to 12.5 mg at bedtime. The medication thus far does not seem to have had much of a favorable impact on the patient's delusional belief system, and he is not willing to consider antiobsessional medications in the form of a selective serotonin reuptake inhibitor. However, the patient is now sleeping better and his general demeanor has been more calm, more pleasant, and more self-possessed. -The patient reports that he does not feel that he is experiencing any side effects from olanzapine, but fall short of saying that it is helping him in any way, other than perhaps for sleep. He mentions that he sometimes has a pain in his left abdominal wall and lower rib cage that he says he does not feel as a side effect from medication but, rather, the result of his doing sit ups and his bedroom by placing his feet under the mattress and exercising in that way. 12/04 - 12/05 -Zyprexa 12.5 mg IM po qhs, sedation from yesterday seems to be resolving, can likely be increased tomorrow. 12/06 - Continue Zyprexa 12.5mg IM this evening - continue attempts to engage patient in conversation regarding dose increases or consideration of alternative agents - Pt continues to be unwilling to participate in conversation regarding alternative discharge plans to [facility] hospitalization. He continues to refuse to involve his or any other outpatient support in safety/discharge planning. - Referral to [facility] was completed and is reportedly being reviewed. 12/07 - Titrating Zyprexa 15mg IM - patient continues to refuse offer for oral medications. Pt was offered discussion about alternative agents, but declined. - Referral officially received by [facility] on 12/02/2019 (304 findings to be sent once received) - awaiting response regarding acceptance decision - Continue attempts to engage patient in discharge and safety planning - patient continues to be unwilling to discuss possible diversion plans 12/08 - 12/09 - Continue Zyprexa 15mg IM - pt continuing to refuse oral medications - Awaiting response from [facility] regarding referral - Pt remains unwilling to participate in safety planning or exploring diversion plan 12/10 -Patient is exhibiting excess sedation add Zyprexa 15 mg IM at bedtime. Specifically, the patient is observed to be hypersomnolent, has been sleeping off and on throughout the days, and indicates that he feels that at this higher dose of Zyprexa he is experiencing some cognitive slowing. At the same time, he does not seem to be responding to Zyprexa either at high doses or at low doses, other than it may be contributing to his ability to maintain self possession and avoid these sorts of dyscontroled behaviors that precipitated the current admission (for example, breaking furniture, knocking holes in the mckeon of his home, and tearing out shards of woodwork and ways that frightened his ). -The patient remains delusional and harbors an elaborate persecutory delusional system that he often hits that, but is reluctant to discuss in detail much of the time because he says that he fears that information that he shares with us will fall into the wrong hands and will interfere with his ability to expose those persons who he feels are responsible for the referenced "crimes against humanity." -The patient when asked, convincingly states that he is not having any thoughts of extracting retribution from the individuals and entities that he holds responsible for his delusional construct regarding "crimes against humanity," other than to expose them by publishing proof of their crimes. Specifically, he says that he has no plan to cause physical harm to the person or property of others and says that he will leave the question of punishment to those who are lawful he entitled to impose it. -Because the patient's delusional belief seem not to be responding favorably to olanzapine at the higher dose, and because he is exhibiting some symptoms of excess sedation associated with olanzapine at 15 mg daily, his dose of olanzapine (to be given IM if necessary for refusal of p.o. olanzapine) will be reduced to olanzapine 10 mg IM at bedtime, starting tonight. 12/11 The patient is less sedated at the 10 mg of olanzapine IM he continues to refuse oral medications. Provider did again re-present the role of an SSRI that may help but he is clear and adamant about refusal of all medications. 12/12 - he is slightly less sedated at 10mg olanzapine IM each hs, but is more agitated today that he had been and more profuse with this provider about his delusional beliefs and seeing this provider and all medical care here as passive pawns of a broader conspiracy through the [employer]. He continues to decline oral medications, or any form of aftercare for monitoring of irritability and agitation maintaining that he does not have any mental illness and that all he has is "truth." Presently his risk of continuing to incorporate anyone who disagrees with his delusion into the delusion, his unwillingness to take medications after discharge, and unwillingness to participate any form of routine relationship with a behavioral health provider after discharge, and incorporation of his in his delusional system with prior physical aggression are concerning. I believe ongoing inpatient hospitalization is most appropriate setting for care at this time 12/13 - Continue olanzapine 10mg IM each evening (patient continues to refuse PO medications or discussion regarding alternative agents. - Pt continues to appear sedated, though is spending more time out of his room in the afternoons. - Anticipate decision regarding [facility] referral in the next few days 12/14 - Continue current treatment plan, patient reporting improvement in fatigue today - Anticipate update from [facility] soon regarding decision on referral - Pt continues to be resistant to attempts to safety plan or discuss alternative discharge options 12/15 - Continue current treatment plan - patient reports he is better tolerating lower dose of olanzapine but still reports daytime fatigue - Explanation provided to patient regarding request for MRI, heavy metal studies, B12, and folate - patient is persistent in his unwillingness to have these studies completed at this time - Will attempt to gather more information regarding reports of a previous MRI - Could consider cognitive assessment such as MoCA - as patient was limited in his willingness to even discuss superficial details with this provider, cognitive assessment was not attempted today - Pt went outside with staff this afternoon - continue to offer intermittently and assess the appropriateness of his presentation Risk Factors Assessment Male: Yes : Yes Do You Have Access To A Gun?: No ( denies that they have any guns at home) Health Problems: No Mental Health Diagnoses: Yes Substance Use Disorders: No Previous Attempt: No Previous Psychiatric Hospitalization: No Hopelessness: No Smoker: No Protective Factors Assessment : Yes Responsible for Young Children: No Employed: No Stable Relationships: No ( is supportive, but fearful of him due to his violence towards her.) Good Rapport with Provider: No (No outpatient providers.) Interval History Identifying Information SAL MAGANA is a 59-year-old M admitted on 11/14/19 19:58 on a 302 involuntary commitment for paranoia and violence at home, on a 304 extended involuntary commitment as of 11/30. Chief Complaint "I'm fine. Thank you." Review of Systems Notes Constitutional: reports ongoing daytime fatigue, but improved with reduced dose of olanzapine Cardiovascular: denied Respiratory: denied Gastrointestinal: denied Neurological: denied Psychiatric: denies symptoms other than stated above Total of at least 10 systems reviewed, pertinent positives as above and in HPI. Sleep Information Total Hours of Sleep: 6 Sleep Comments: he read in bed and was then asleep on 0030 rounds. Meal Information Percent Meal Consumed - Breakfast: 100 Percent Meal Consumed - Lunch: 100 Percent Meal Consumed - Dinner: 100 Nutrition Comment: per meal record Subjective Subjective Patient was seen & assessed and interval progress reviewed with treatment team. Staff report patient has been out of his room intermittently, but continues to not attend group programming. It is reported that [facility] is still considering the referral and is reportedly requested that an organic work- up be pursued. Pt was seen today to assess progress since admission. Conversation was attempted after patient had been taken outside by staff. Pt returned to the unit and retreated to his bed. Pt reported he was sleeping, but did agree to a conversation. He reports ongoing fatigue which he perceives to be related to ongoing use of olanzapine. He does admit to improvement in level of fatigue after the dose of olanzapine was reduced, but remains more tired than his baseline. Pt denied any other physical concerns. Pt reports he was appreciative of the opportunity to go outside today, but denies any other plans or goals today. This provider discussed recommendation for additional studies to rule-out organic causes of delusions and altered thought process. Reasoning was provided and anticipated studies were discussed. When discussing an MRI, patient states "oh, I'm sure you would love to consciously sedate me so you could get into my head again. That's what happened last time." Pt was asked what was meant by this comment, and he states "I don't want to discuss it." Pt remains unable to provide a timeline of when his previous MRI may have been completed. Pt states he is unwilling to have any "extraneous tests" performed. Pt was reminded these studies are being requested from [facility] for possible acceptance, but he continues to state "I will not have any of these studies done voluntarily." Pt declined to speak any further with this provider, stating "I don't want to discuss anything else with you. Who is the doctor?" Pt was reminded of the provider schedule for the week and was asked if he had a particular question or anything that could be passed along. Pt states, "I'm not speaking with you about it" and declined further conversation. Physical Exam Psychiatric Orientation: alert and + guarded (uncooperative ) Apperance: appropriately dressed (wearing same clothes for several days) Eye Contact: + fair eye contact (intermittently avoiding direct eye contact) Motor Behavior: no abnormal motor movements (observed while sitting in bed) Speech: normal rate/rhythm/volume of speech (irritable tone, dismissive of conv ersation) Affect: + blunted affect Mood: no depressed mood ("I'm fine, thank you") Thought Process: + perseveration; + thought process not linear or logical Thought Content: + preoccupation, + paranoid, + delusions and + persecution Suicidal Thoughts: denies suicidal thoughts Homicidal Thoughts: denies homicidal thoughts Hallucinations: no auditory hallucinations and no visual hallucinations Cognition: attention grossly intact and language grossly intact Insight: + severely impaired insight Judgement: + poor judgement Vital Signs (Past 24 Hours) Last Vital Signs Temp 36.4 C L 12/16/19 06:40 Pulse 67 12/16/19 06:41 Resp 16 12/16/19 06:40 BP 108/69 12/16/19 06:41 Pulse Ox 98 11/14/19 20:15 Results & Data ([facility]) Current Inpatient Medications Current Inpatient Medications: Current Inpatient Medications Acetaminophen (Tylenol) 650 mg PO Q4H PRN PRN Reason: Headache or Minor Fever Stop: 01/10/20 20:43 Al Hydrox/Mg Hydrox/Simethicone (Maalox) 30 ml PO Q4H PRN PRN Reason: GI Upset Stop: 01/10/20 20:43 Bismuth Subsalicylate (Kaopectate) 15 ml PO PRN PRN PRN Reason: Loose Stool Stop: 01/10/20 20:43 Hydroxyzine HCl (Vistaril) 50 mg PO HSZ PRN PRN Reason: Insomnia Stop: 01/10/20 20:43 Hydroxyzine HCl (Vistaril) 25 mg PO Q4H PRN PRN Reason: Anxiety Stop: 01/10/20 20:43 Magnesium Hydroxide (Milk Of Magnesia) 30 ml PO DAILY PRN PRN Reason: Constipation Stop: 01/10/20 20:43 Centrum Silver Men's : Non-Formulary Patient's Own Med 1 ea PO QAM ADRIANE Stop: 01/13/20 08:59 Last Admin: 12/16/19 08:38 Dose: 1 tab Documented by: Olanzapine (Zyprexa Zydis Od) 10 mg PO HS ADRIANE Stop: 12/20/19 21:59 Last Admin: 12/15/19 22:31 Dose: Not Given Documented by: Olanzapine (Zyprexa) 10 mg IM HS PRN PRN Reason: Refusal of PO olanzapine Stop: 01/10/20 21:59 Last Admin: 12/15/19 22:30 Dose: 10 mg Documented by: Sodium Chloride ([place] Nasal) 1 - 2 sprays NA PRN PRN PRN Reason: Nasal Dryness/Congestion Stop: 01/10/20 20:43 Last Admin: 12/15/19 23:37 Dose: 1 sprays Documented by: Post Discharge Appointments Primary Care Physician Name Of Family Doctor: [facility] - Dr. Jeffrey Torres Primary Care Provider Appointment Comment: [id number], [address], [place] [address] Other #1: Name of Aftercare Appointment: [facility] - Preeti Kelly Phone Number of Aftercare Appointment: [phone] Contact Information Discharge Discharge Address: [address] [place] [address], [id number], [place] [address]
[2019-12-16] MEDS: OLANZapine 10 MG/2.1 ML SDV IM PRN (22:13)
[2019-12-16] MEDS: OLANZAPINE ZYDIS 10 MG ORALLY DIS. TAB PO SCH (22:14)
[2019-12-17] MEDS: MULTIVITAMIN PO SCH (08:57)
--- NOTE | 2019-12-17 10:02 | Psychiatric Progress Note ---
Date of Service December 17, 2019 Impression / Recommendations Impression 59-year-old male admitted involuntarily for inpatient psychiatric treatment. Primary diagnosis of delusional disorder, persecutory type. Information provided by his indicates that several years ago certain changes in his department at the [facility] triggered a certain amount of distrust by the patient, which gradually grew into the elaborate, highly systematized delusional belief system that is currently in place. His delusional system was likely amplified by his tendency to obsess, focus on patterns, and look for theoretical explanations. While patient is highly attached to these delusional beliefs and is demonstrating inability/unwillingness to consider they may not be accurate - the primary safety concern surrounding his condition is the fact that he had been demonstrating highly agitated behavior which was threatening the safety of himself and his (throwing furniture at mckeon, ripping off door frames, etc). Although his behavior on the unit has been free of threats and violence, he is refusing to involve his , who reports fear for her safety given his behavior (violence directed at her prior to admission) and the fact that he has implicated her in his delusional system and believes she is conspiring within [place] government against him. Further, he is uncooperative with treatment, is refusing medication (although not resisting when given intramuscular injections of olanzapine), and declining outpatient treatment. This is a difficult and complex situation. The patient's dyscontrol behavior does not seem to be specific to his , and even were he to leave the hospital without going home to his , the behaviors described by his give reason to predict that he would quickly become a danger to himself or other people in the community. He lacks insight, and expresses a firm belief that he is on a mission to protect and save innocent people. His calmer behavior here is also within the context of his taking psychiatric medications, and he has made it abundantly clear that he will not consider taking any psychiatric medication unless it is forced on him in the hospital. 304 extended involuntarily commitment was granted on 11/30, and referral to the [facility] has been sent as he remains a danger to himself and others and is refusing to engage in conversation regarding alternative discharge options. As time has progressed, it appears that he is not responding favorably to olanzapine. He continues to adamantly refuse any type of psychotropic medication voluntarily. At a dose of olanzapine 15 mg intramuscularly at bedtime the patient's behavior on the unit was pleasant and fairly passive (with the exception of increased irritability during meetings with psychiatric providers). However, his delusional belief system remained completely untouched as best we can tell and he began to demonstrate excessive sedation at this higher dose. Does was reduced to 10mg IM on 12/10 with reported improvement in alertness throughout the day. Received request for organic work-up from [facility] prior to patient's acceptance. Unfortunately, patient is unwilling to complete these studies (anticipated ordering MRI, heavy metal studies, B12 and folate). Pt not able/willing to participate with any other cognitive assessments today. He continues to be incorporating staff and psychiatric providers into his delusional system. (1) Delusional disorder: 11/14 Patient admitted on an involuntary status to the behavioral health unit for continued assessment and treatment as indicated He will be maintained on every 15 minute safety checks We will continue to expand database Consider neuroimaging for w/u of psychosis prn orders for Ativan and Haldol today. I suspect it is likely that he will require medications over objection before he permits any treatment due to what appears to be severely impaired insight. Patient will be reevaluated tomorrow for psychiatric second opinion regarding need for treatment over objection. -presently patient requires continued inpatient hospitalization for workup and treatment of psychosis which was been recently associated with some violent behavior at home. he is at risk of harm to self and others if discharged prematurely. 11/15 -File for 303 involuntary commitment. -Patient is refusing to consider medication, but has haloperidol and Ativan as needed ordered. Would recommend a trial of olanzapine, and agree with medications over objection as he has severe psychotic symptoms which are impairing his ability to function and placing both himself and others at risk of harm due to his violent behavior at home. -Patient is refused to answer questions about whether or not he has guns, so we will need to get this information from his . At this point he is refusing to sign a release for her or anyone else. -Excuse patient from groups due to the severity of his psychosis and violent behavior. Medically necessary private room room due to the same. 11/16 -303 involuntary commitment granted. -Patient continues to refuse to allow his to be involved in treatment. He is now not denying that he was aggressive at home, but is refusing to discuss it, and is focused only on the conspiracy which he says led to his behavior. -Continue to consider medications over objection. At this point, we are attempting to engage the patient in treatment volitionally, and the risk of forcing medications at this time is further alienating him. However, if he is unable to engage in any manner, we will need to reconsider medications over objection. -Patient may attend groups if able to maintain appropriate behavioral control. -Patient has still not been willing to complete admission assessments, and has not been willing to provide certain information. 4/ -Recommend medications over objection, as the patient is unable to engage in treatment due to the severity of his psychosis and lack of insight, and remains at imminent risk of harm to others, specifically his , if his symptoms remain untreated. He is floridly delusional, now implicating hospital staff in his delusions. He is not able to work as a result of his psychosis, and his is not able to work due to having to supervise him, and is fearful of him given his escalating violence at home. He continues to refuse to allow her to be involved in treatment, is not attending groups, and is refusing to even discuss medication options. Dr. Duarte recommended medications over objection, and I agree, as the patient is unlikely to improve without antipsychotic medication. -Start olanzapine Zydis 5 mg daily, with a 5 mg IM backup for refusal. Order FLP and FG tomorrow for baseline on an atypical antipsychotic. He will also need a medical work-up of psychosis once he is more cooperative, including brain MRI. -Ongoing poor sleep, staff will limit bright lights near his room at night, and if he can be compliant with medication, can move olanzapine to bedtime to assist with sleep. Giving during the day initially to allow for adequate staff in case of need for physical hold or restraint to receive medication. 11/18 - Continue olanzapine 5mg daily (offering PO Zydis with IM for refusal) - medications over objection, though patient has been cooperative with his preference for IM administration - Pt offered again PO olanzapine, with the eventual option of converting the medication to HS dosing if he continues to be cooperative - as he reports sedation after receiving the medication - Pt remains delusional and paranoid, unable to discuss examples of how we can assist him during his stay - Maintain MNPR due to level of psychosis - Fasting glucose - wnl at 90; triglycerides elevated at 188, remainder of lipid panel wnl - Continue attempts to coordinate care with patient's 11/19 -Patient is continuing to say that he does not wish for us to speak with his , and he again tells us that he will not sign a consent that will allow us to contact her. As above, his assertion is that he does not want us talking to her because she may tell us things that we will include in the record and that will eventually be used against him, either by the government or by [facility]. As a compromise, the patient says that he will ask his to call us and tell us whether she continues to feel that he is a danger to her, himself, or to anyone else. It was explained that we would also need to be able to talk to her about our concerns and we would need to coordinate aftercare arrangements with her. The patient replied to that by saying simply that he would not allow us to say anything about his care or recommended treatment to her at this time. -There seem to be some early indications that the patient may be responding to olanzapine. Today, when I told him that our concerns about his safety had not to do with his behaviors here in the hospital but, instead, about his beha viors at home (in the community) he quickly responded, "yes, but I am getting medication here!" (He almost immediately realized the implication of what he had just said, and he immediately changed the subject and began talking about how various entities were deliberately provoking him into losing his temper and acting in anger. -The patient tells us that he is using the fact that he has been given intramuscular medications against his will as evidence of our being the "dupes" or agents of the entities behind the conspiracy to silence him. He also reiterates that he believes that taking medication voluntarily is tantamount to acknowledging his need for psychiatric treatment, and he tells us that he has absolutely no psychiatric problem at all and does not need any treatment. -Today, we are increasing his olanzapine's as follows. We will begin olanzapine ODT 10 mg at bedtime starting tonight. We have also changed his order for medications over objection to olanzapine 10 mg IM daily for refusal of p.o. olanzapine. -Although the patient's presentation has many of the symptoms of a delusional disorder, persecutory typegiven the elaborate nature of the delusional system, we continue to suspect that what we are seeing is a somewhat atypical jorge, or discrete manic episodes overlaying a underlying delusional disorder. If the explanation for the patient's presentation is symptoms of a manic episode, his prognosis is better. We discussed the possibility of adding an antiobsessional medication which sometimes helps with pure delusional disorders, but the patient says that, absolutely, he will not take any medication that we offer him voluntarily. 11/22--continue Zyprexa IM hs, continues to refuse family meeting with due to paranoia, refuses 2-3 trial of PO Invega to convert to injectable. 11/23--File for 304 hearing d/t ongoing psychosis, lack of insight, refusal for outpatient treatment or ongoing medication, refusal to involve , and high risk for return to violent behavior if home w/ , whom he believes is part of the conspiracy against him. 11/24 - Continue olanzapine IM, continuing to offer patient PO medication which he is consistently refusing - Pt continues to refuse to involve in conversations regarding discharge and safety planning - 304 hearing scheduled for 11/30; pt continues to be psychotic and remains unable to engage in productive safety and discharge planing, therefore remains at high risk of harm to sefl or others if he is discharged home in his current state 11/25 - Titrating olanzapine to 10mg daily; patient continues to refuse offer for PO and is therefore continuing to receive IM injections each evening - 304 hearing 11/30; pt continues to be unwilling to participate in safety and discharge planning efforts 11/26 -The patient tells me that he received olanzapine 10 mg last evening and says that he feels that it has helped him sleep better. However, he notes that his sleep difficulty is related to the fact that his sleep schedule in the hospital is substantially different from the one that he is used to at home, with bedtime here at the hospital being 3 or 4 hours earlier than he is used to. Nevertheless, he says that he believes that he is not having any side effects from olanzapine and that, in the sense that it does help him fall asleep, it helps. Nevertheless, he also repeats today that he will not continue to take any medication, including olanzapine, if he is discharged. -I spoke with the patient's today, without disclosing any protected clinical data regarding the patient. She acknowledges that he frightens her, and, particularly recently, has caused her to fear for her personal physical safety. At the same time, she says tells me that she thinks that if she gets some advice about how best to "handle somebody who is delusional" possibly by getting into individual therapy, herself, she may be able to take him home. She also reports that should he be released (she is aware of upcoming hearing) that she will agree to take him home, because she loves him and wants to protect him, but continues to fear that he may again lose control of his behavior as a function of his delusions. -Today, the patient tells me that he recognizes that in his upcoming hearing on 11/30 (304) the issue may boil down to whether he can assure that he will be safe in the community and will not represent a risk to anyone else, even if he does not take medication. He also says that he recognizes the "Catch-22" that he is in because he realizes that the hospital is likely to say that his behavior in the hospital has been positively influenced by his taking olanzapine, and that without the structure of the hospital and without the medications, he may revert to the dangerous behaviors that precipitated the admission. -Of concern is the fact that the patient's tells us today that, effective yesterday, he has told her that he will no longer speak to her te lephonically, and if he is released from the hospital on Saturday he will simply walk home, and if she is not comfortable being home with him she should leave. However, by the end of today he is allowing that he truly believes that his loves him and would not try to harm him if she had any choice, so he is at least considering contacting her again by telephone. 11/27 -Patient informed of 304 hearing and plan to refer to the [facility], as well as additional labs needed for that referral. -He continues to refuse a family meeting with his , who has expressed ongoing concern for her safety. He continues to refuse p.o. medication, outpatient treatment, and discussion of his aggression at home or plans to mitigate it. He remains at risk of harm to others, particularly his , and if discharged prematurely, as she is implicated in his delusion and he believes she has part of the conspiracy against him. -Encourage the patient to attend groups and focus on his own emotional reaction to his perception of events, healthy coping skills, and a discharge safety plan; all of which thus far he has been unwilling to do. 11/28 - 11/29 -Patient refused PPD, EKG, and chest x-ray for [facility] hospital referral. He is refusing to consider a trial of Invega/MERCADO, and continues to refuse a family meeting. -304 involuntary commitment hearing scheduled for 12/01/2019, and will then pu rsue referral to the [facility]. 11/30 - 304 involuntary commitment granted today, referral to the [facility] is reportedly supported by the [facility] at this time - Pt was again offered PPD, EKG and CXR for [facility] referral, which he again declined - Although he is not overtly refusing medication changes, he does verbalize desire to give olanzapine "another week" before switching to another agent. 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 He remains delusional and without insight, refusing medication (although getting the IM of Zyprexa daily), a family meeting, or discharge planning/outpatient care. -Recommend referral to [facility] for long-term inpatient treatment, will simultaneously referring for a BCM and working on potential d iversion plans. 12/02 - Continue IM olanzapine - as continues to refuse oral medications or discussion regarding alternative agents - Most documentation sent to [facility] for referral - awaiting 303 and 304 findings to be sent and will then fax these as well - Pt continues to decline medical tests generally requested as part of [facility] referral, but cannot force these studies to be done 12/03 -We will increase his dose of IM olanzapine to 12.5 mg at bedtime. The medication thus far does not seem to have had much of a favorable impact on the patient's delusional belief system, and he is not willing to consider antiobsessional medications in the form of a selective serotonin reuptake inhibitor. However, the patient is now sleeping better and his general demeanor has been more calm, more pleasant, and more self-possessed. -The patient reports that he does not feel that he is experiencing any side effects from olanzapine, but fall short of saying that it is helping him in any way, other than perhaps for sleep. He mentions that he sometimes has a pain in his left abdominal wall and lower rib cage that he says he does not feel as a side effect from medication but, rather, the result of his doing sit ups and his bedroom by placing his feet under the mattress and exercising in that way. 12/04 - 12/05 -Zyprexa 12.5 mg IM po qhs, sedation from yesterday seems to be resolving, can likely be increased tomorrow. 12/06 - Continue Zyprexa 12.5mg IM this evening - continue attempts to engage patient in conversation regarding dose increases or consideration of alternative agents - Pt continues to be unwilling to participate in conversation regarding alternative discharge plans to [facility] hospitalization. He continues to refuse to involve his or any other outpatient support in safety/discharge planning. - Referral to [facility] was completed and is reportedly being reviewed. 12/07 - Titrating Zyprexa 15mg IM - patient continues to refuse offer for oral medications. Pt was offered discussion about alternative agents, but declined. - Referral officially received by [facility] on 12/02/2019 (304 findings to be sent once received) - awaiting response regarding acceptance decision - Continue attempts to engage patient in discharge and safety planning - patient continues to be unwilling to discuss possible diversion plans 12/08 - 12/09 - Continue Zyprexa 15mg IM - pt continuing to refuse oral medications - Awaiting response from [facility] regarding referral - Pt remains unwilling to participate in safety planning or exploring diversion plan 12/10 -Patient is exhibiting excess sedation add Zyprexa 15 mg IM at bedtime. Specifically, the patient is observed to be hypersomnolent, has been sleeping off and on throughout the days, and indicates that he feels that at this higher dose of Zyprexa he is experiencing some cognitive slowing. At the same time, he does not seem to be responding to Zyprexa either at high doses or at low doses, other than it may be contributing to his ability to maintain self possession and avoid these sorts of dyscontroled behaviors that precipitated the current admission (for example, breaking furniture, knocking holes in the [place]ckeon of his home, and tearing out shards of woodwork and ways that frightened his ). -The patient remains delusional and harbors an elaborate persecutory delusional system that he often hits that, but is reluctant to discuss in detail much of the time because he says that he fears that information that he shares with us will fall into the wrong hands and will interfere with his ability to expose those persons who he feels are responsible for the referenced "crimes against humanity." -The patient when asked, convincingly states that he is not having any thoughts of extracting retribution from the individuals and entities that he holds responsible for his delusional construct regarding "crimes against humanity," other than to expose them by publishing proof of their crimes. Specifically, he says that he has no plan to cause physical harm to the person or property of others and says that he will leave the question of punishment to those who are lawful he entitled to impose it. -Because the patient's delusional belief seem not to be responding favorably to olanzapine at the higher dose, and because he is exhibiting some symptoms of excess sedation associated with olanzapine at 15 mg daily, his dose of olanzapine (to be given IM if necessary for refusal of p.o. olanzapine) will be reduced to olanzapine 10 mg IM at bedtime, starting tonight. 12/11 The patient is less sedated at the 10 mg of olanzapine IM he continues to refuse oral medications. Provider did again re-present the role of an SSRI that may help but he is clear and adamant about refusal of all medications. 12/12 - he is slightly less sedated at 10mg olanzapine IM each hs, but is more agitated today that he had been and more profuse with this provider about his delusional beliefs and seeing this provider and all medical care here as passive pawns of a broader conspiracy through the [employer]. He continues to decline oral medications, or any form of aftercare for monitoring of irritability and agitation maintaining that he does not have any mental illness and that all he has is "truth." Presently his risk of continuing to incorporate anyone who disagrees with his delusion into the delusion, his unwillingness to take medications after discharge, and unwillingness to participate any form of routine relationship with a behavioral health provider after discharge, and incorporation of his in his delusional system with prior physical aggression are concerning. I believe ongoing inpatient hospitalization is most appropriate setting for care at this time 12/13 - Continue olanzapine 10mg IM each evening (patient continues to refuse PO medications or discussion regarding alternative agents. - Pt continues to appear sedated, though is spending more time out of his room in the afternoons. - Anticipate decision regarding [facility] referral in the next few days 12/14 - Continue current treatment plan, patient reporting improvement in fatigue today - Anticipate update from [facility] soon regarding decision on referral - Pt continues to be resistant to attempts to safety plan or discuss alternative discharge options 12/15 - Continue current treatment plan - patient reports he is better tolerating lower dose of olanzapine but still reports daytime fatigue - Explanation provided to patient regarding request for MRI, heavy metal studies, B12, and folate - patient is persistent in his unwillingness to have these studies completed at this time - Will attempt to gather more information regarding reports of a previous MRI - Could consider cognitive assessment such as MoCA - as patient was limited in his willingness to even discuss superficial details with this provider, cognitive assessment was not attempted today - Pt went outside with staff this afternoon - continue to offer intermittently and assess the appropriateness of his presentation 12/16 - Continue current treatment plan - olanzapine 10mg qHS. Pt continues to refuse PO medications but tolerates IM injections without incident - Pt again unwilling to consider studies to rule out organic causes for the presence of delusions. Although organic cause was questioned during initial admission, it appears less likely to be the case but of course cannot be entirely ruled out without patient's willingness to participate in these studies. History obtained from patient and suggest a long history of OCD characteristics and paranoia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
[2019-12-17] MEDS: OLANZapine 10 MG/2.1 ML SDV IM PRN (22:28)
[2019-12-17] MEDS: OLANZAPINE ZYDIS 10 MG ORALLY DIS. TAB PO SCH (22:31)
[2019-12-18] MEDS: MULTIVITAMIN PO SCH (08:41)
--- NOTE | 2019-12-18 15:52 | Psychiatric Progress Note ---
Date of Service December 18, 2019 Impression / Recommendations Impression 59-year-old male admitted involuntarily for inpatient psychiatric treatment. Primary diagnosis of delusional disorder, persecutory type. Information provided by his indicates that several years ago certain changes in his department at the [employer] triggered a certain amount of distrust by the patient, which gradually grew into the elaborate, highly systematized delusional belief system that is currently in place. His delusional system was likely amplified by his tendency to obsess, focus on patterns, and look for theoretical explanations. While patient is highly attached to these delusional beliefs and is demonstrating inability/unwillingness to consider they may not be accurate - the primary safety concern surrounding his condition is the fact that he had been demonstrating highly agitated behavior which was threatening the safety of himself and his (throwing furniture at mckeon, ripping off door frames, etc). Although his behavior on the unit has been free of threats and violence, he is refusing to involve his , who reports fear for her safety given his behavior (violence directed at her prior to admission) and the fact that he has implicated her in his delusional system and believes she is conspiring within [place] government against him. Further, he is uncooperative with treatment, is refusing medication (although not resisting when given intramuscular injections of olanzapine), and declining outpatient treatment. This is a difficult and complex situation. The patient's dyscontrol behavior does not seem to be specific to his , and even were he to leave the hospital without going home to his , the behaviors described by his give reason to predict that he would quickly become a danger to himself or other people in the community. He lacks insight, and expresses a firm belief that he is on a mission to protect and save innocent people. His calmer behavior here is also within the context of his taking psychiatric medications, and he has made it a bundantly clear that he will not consider taking any psychiatric medication unless it is forced on him in the hospital. 304 extended involuntarily commitment was granted on 11/30, and [facility] as he remains a danger to himself and others and is refusing to engage in conversation regarding alternative discharge options. As time has progressed, it appears that he is not responding favorably to olanzapine. He continues to adamantly refuse any type of psychotropic medication voluntarily. At a dose of olanzapine 15 mg intramuscularly at bedtime the patient's behavior on the unit was pleasant and fairly passive (with the exception of increased irritability during meetings with psychiatric providers). However, his delusional belief system remained completely untouched as best we can tell and he began to demonstrate excessive sedation at this higher dose. Does was reduced to 10mg IM on 12/10 with reported improvement in alertness throughout the day. Organic work-up was requested by [facility]; however, patient is unwilling to participate in additional studies (anticipated ordering MRI, heavy metal studies, B12 and folate). We have received word on that the patient was accepted at [facility] - awaiting bed date. He continues to be incorporating staff and psychiatric providers into his delusional system. (1) Delusional disorder: 11/14 Patient admitted on an involuntary status to the behavioral health unit for continued assessment and treatment as indicated He will be maintained on every 15 minute safety checks We will continue to expand database Consider neuroimaging for w/u of psychosis prn orders for Ativan and Haldol today. I suspect it is likely that he will require medications over objection before he permits any treatment due to what appears to be severely impaired insight. Patient will be reevaluated tomorrow for psychiatric second opinion regarding need for treatment over objection. -presently patient requires continued inpatient hospitalization for workup and treatment of psychosis which was been recently associated with some violent behavior at home. he is at risk of harm to self and others if discharged prematurely. 11/15 -File for 303 involuntary commitment. -Patient is refusing to consider medication, but has haloperidol and Ativan as needed ordered. Would recommend a trial of olanzapine, and agree with medications over objection as he has severe psychotic symptoms which are impairing his ability to function and placing both himself and others at risk of harm due to his violent behavior at home. -Patient is refused to answer questions about whether or not he has guns, so we will need to get this information from his . At this point he is refusing to sign a release for her or anyone else. -Excuse patient from groups due to the severity of his psychosis and violent behavior. Medically necessary private room room due to the same. 11/16 -303 involuntary commitment granted. -Patient continues to refuse to allow his to be involved in treatment. He is now not denying that he was aggressive at home, but is refusing to discuss it, and is focused only on the conspiracy which he says led to his behavior. -Continue to consider medications over objection. At this point, we are attempting to engage the patient in treatment volitionally, and the risk of forcing medications at this time is further alienating him. However, if he is unable to engage in any manner, we will need to reconsider medications over objection. -Patient may attend groups if able to maintain appropriate behavioral control. -Patient has still not been willing to complete admission assessments, and has not been willing to provide certain information. 4 -Recommend medications over objection, as the patient is unable to engage in treatment due to the severity of his psychosis and lack of insight, and remains at imminent risk of harm to others, specifically his , if his symptoms remain untreated. He is floridly delusional, now implicating hospital staff in his delusions. He is not able to work as a result of his psychosis, and his is not able to work due to having to supervise him, and is fearful of him given his escalating violence at home. He continues to refuse to allow her to be involved in treatment, is not attending groups, and is refusing to even discuss medication options. Dr. Duarte recommended medications over objection, and I agree, as the patient is unlikely to improve without antipsychotic medication. -Start olanzapine Zydis 5 mg daily, with a 5 mg IM backup for refusal. Order FLP and FG tomorrow for baseline on an atypical antipsychotic. He will also need a medical work-up of psychosis once he is more cooperative, including brain MRI. -Ongoing poor sleep, staff will limit bright lights near his room at night, and if he can be compliant with medication, can move olanzapine to bedtime to assist with sleep. Giving during the day initially to allow for adequate staff in case of need for physical hold or restraint to receive medication. 4 - Continue olanzapine 5mg daily (offering PO Zydis with IM for refusal) - medications over objection, though patient has been cooperative with his preference for IM administration - Pt offered again PO olanzapine, with the eventual option of converting the medication to HS dosing if he continues to be cooperative - as he reports sedation after receiving the medication - Pt remains delusional and paranoid, unable to discuss examples of how we can assist him during his stay - Maintain MNPR due to level of psychosis - Fasting glucose - wnl at 90; triglycerides elevated at 188, remainder of lipid panel wnl - Continue attempts to coordinate care with patient's / -Patient is continuing to say that he does not wish for us to speak with his , and he again tells us that he will not sign a consent that will allow us to contact her. As above, his assertion is that he does not want us talking to her because she may tell us things that we will include in the record and that will eventually be used against him, either by the government or by [facility]. As a compromise, the patient says that he will ask his to call us and tell us whether she continues to feel that he is a danger to her, himself, or to anyone else. It was explained that we would also need to be able to talk to her about our concerns and we would need to coordinate aftercare arrangements with her. The patient replied to that by saying simply that he would not allow us to say anything about his care or recommended treatment to her at this time. -There seem to be some early indications that the patient may be responding to olanzapine. Today, when I told him that our concerns about his safety had not to do with his behaviors here in the hospital but, instead, about his behaviors at home (in the community) he quickly responded, "yes, but I am getting medication here!" (He almost immediately realized the implication of what he had just said, and he immediately changed the subject and began talking about how various entities were deliberately provoking him into losing his temper and acting in anger. -The patient tells us that he is using the fact that he has been given intramuscular medications against his will as evidence of our being the "dupes" or agents of the entities behind the conspiracy to silence him. He also reiterates that he believes that taking medication voluntarily is tantamount to acknowledging his need for psychiatric treatment, and he tells us that he has absolutely no psychiatric problem at all and does not need any treatment. -Today, we are increasing his olanzapine's as follows. We will begin olanzapine ODT 10 mg at bedtime starting tonight. We have also changed his order for medications over objection to olanzapine 10 mg IM daily for refusal of p.o. olanzapine. -Although the patient's presentation has many of the symptoms of a delusional disorder, persecutory typegiven the elaborate nature of the delusional system, we continue to suspect that what we are seeing is a somewhat atypical jorge, or discrete manic episodes overlaying a underlying delusional disorder. If the explanation for the patient's presentation is symptoms of a manic episode, his prognosis is better. We discussed the possibility of adding an antiobsessional medication which sometimes helps with pure delusional disorders, but the patient says that, absolutely, he will not take any medication that we offer him voluntarily. 11/22--continue Zyprexa IM hs, continues to refuse family meeting with due to paranoia, refuses 2-3 trial of PO Invega to convert to injectable. 11/23--File for 304 hearing d/t ongoing psychosis, lack of insight, refusal for outpatient treatment or ongoing medication, refusal to involve , and high risk for return to violent behavior if home w/ , whom he believes is part of the conspiracy against him. 11/24 - Continue olanzapine IM, continuing to offer patient PO medication which he is consistently refusing - Pt continues to refuse to involve in conversations regarding discharge and safety planning - 304 hearing scheduled for 11/30; pt continues to be psychotic and remains unable to engage in productive safety and discharge planing, therefore remains at high risk of harm to sefl or others if he is discharged home in his current state 11/25 - Titrating olanzapine to 10mg daily; patient continues to refuse offer for PO and is therefore continuing to receive IM injections each evening - 304 hearing 11/30; pt continues to be unwilling to participate in safety and discharge planning efforts 11/26 -The patient tells me that he received olanzapine 10 mg last evening and says that he feels that it has helped him sleep better. However, he notes that his sleep difficulty is related to the fact that his sleep schedule in the hospital is substantially different from the one that he is used to at home, with bedtime here at the hospital being 3 or 4 hours earlier than he is used to. Nevertheless, he says that he believes that he is not having any side effects from olanzapine and that, in the sense that it does help him fall asleep, it helps. Nevertheless, he also repeats today that he will not continue to take any medication, including olanzapine, if he is discharged. -I spoke with the patient's today, without disclosing any protected clinical data regarding the patient. She acknowledges that he frightens her, and, particularly recently, has caused her to fear for her personal physical safety. At the same time, she says tells me that she thinks that if she gets some advice about how best to "handle somebody who is delusional" possibly by getting into individual therapy, herself, she may be able to take him home. She also reports that should he be released (she is aware of upcoming hearing) that she will agree to take him home, because she loves him and wants to protect him, but continues to fear that he may again lose control of his behavior as a function of his delusions. -Today, the patient tells me that he recognizes that in his upcoming hearing on 11/30 (304) the issue may boil down to whether he can assure that he will be safe in the community and will not represent a risk to anyone else, even if he does not take medication. He also says that he recognizes the "Catch-22" that he is in because he realizes that the hospital is likely to say that his behavior in the hospital has been positively influenced by his taking olanzapine, and that without the structure of the hospital and without the medications, he may revert to the dangerous behaviors that precipitated the admission. -Of concern is the fact that the patient's tells us today that, effective yesterday, he has told her that he will no longer speak to her telep honically, and if he is released from the hospital on Saturday he will simply walk home, and if she is not comfortable being home with him she should leave. However, by the end of today he is allowing that he truly believes that his loves him and would not try to harm him if she had any choice, so he is at least considering contacting her again by telephone. 11/27 -Patient informed of 304 hearing and plan to refer to the [facility], as well as additional labs needed for that referral. -He continues to refuse a family meeting with his , who has expressed ongoing concern for her safety. He continues to refuse p.o. medication, outpatient treatment, and discussion of his aggression at home or plans to mitigate it. He remains at risk of harm to others, particularly his , and if discharged prematurely, as she is implicated in his delusion and he believes she has part of the conspiracy against him. -Encourage the patient to attend groups and focus on his own emotional re action to his perception of events, healthy coping skills, and a discharge safety plan; all of which thus far he has been unwilling to do. 11/28 - 11/29 -Patient refused PPD, EKG, and chest x-ray for [facility] referral. He is refusing to consider a trial of Invega/MERCADO, and continues to refuse a family meeting. -304 involuntary commitment hearing scheduled for 12/01/2019, and will then pursue referral to the [facility]. 11/30 - 304 involuntary commitment granted today, referral to the [facility] is reportedly supported by the [facility] at this time - Pt was again offered PPD, EKG and CXR for [facility] referral, which he again declined - Although he is not overtly refusing medication changes, he does verbalize desire to give olanzapine "another week" before switching to another agent. 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 He remains delusional and without insight, refusing medication (although getting the IM of Zyprexa daily), a family meeting, or discharge planning/outpatient care. -Recommend referral to [facility] for long-term inpatient treatment, will simultaneously referring for a BCM and working on potential dive rsion plans. 12/02 - Continue IM olanzapine - as continues to refuse oral medications or discussion regarding alternative agents - Most documentation sent to [facility] for referral - awaiting 303 and 304 findings to be sent and will then fax these as well - Pt continues to decline medical tests generally requested as part of [facility] referral, but cannot force these studies to be done 12/03 -We will increase his dose of IM olanzapine to 12.5 mg at bedtime. The medication thus far does not seem to have had much of a favorable impact on the patient's delusional belief system, and he is not willing to consider antiobsessional medications in the form of a selective serotonin reuptake inhibitor. However, the patient is now sleeping better and his general demeanor has been more calm, more pleasant, and more self-possessed. -The patient reports that he does not feel that he is experiencing any side effects from olanzapine, but fall short of saying that it is helping him in any way, other than perhaps for sleep. He mentions that he sometimes has a pain in his left abdominal wall and lower rib cage that he says he does not feel as a side effect from medication but, rather, the result of his doing sit ups and his bedroom by placing his feet under the mattress and exercising in that way. 12/04 - 12/05 -Zyprexa 12.5 mg IM po qhs, sedation from yesterday seems to be resolving, can likely be increased tomorrow. 12/06 - Continue Zyprexa 12.5mg IM this evening - continue attempts to engage patient in conversation regarding dose increases or consideration of alternative agents - Pt continues to be unwilling to participate in conversation regarding alternative discharge plans to [facility]. He continues to refuse to involve his or any other outpatient support in safety/discharge planning. - Referral to [facility] was completed and is reportedly being reviewed. 12/07 - Titrating Zyprexa 15mg IM - patient continues to refuse offer for oral medications. Pt was offered discussion about alternative agents, but declined. - Referral officially received by [facility] on 12/02/2019 (304 findings to be sent once received) - awaiting response regarding acceptance decision - Continue attempts to engage patient in discharge and safety planning - patient continues to be unwilling to discuss possible diversion plans 12/08 - 12/09 - Continue Zyprexa 15mg IM - pt continuing to refuse oral medications - Awaiting response from [facility] regarding referral - Pt remains unwilling to participate in safety planning or exploring diversion plan 12/10 -Patient is exhibiting excess sedation add Zyprexa 15 mg IM at bedtime. Specifically, the patient is observed to be hypersomnolent, has been sleeping off and on throughout the days, and indicates that he feels that at this higher dose of Zyprexa he is experiencing some cognitive slowing. At the same time, he does not seem to be responding to Zyprexa either at high doses or at low doses, other than it may be contributing to his ability to maintain self possession and avoid these sorts of dyscontroled behaviors that precipitated the current a dmission (for example, breaking furniture, knocking holes in the mckeon of his home, and tearing out shards of woodwork and ways that frightened his ). -The patient remains delusional and harbors an elaborate persecutory delusional system that he often hits that, but is reluctant to discuss in detail much of the time because he says that he fears that information that he shares with us will fall into the wrong hands and will interfere with his ability to expose those persons who he feels are responsible for the referenced "crimes against humanity." -The patient when asked, convincingly states that he is not having any thoughts of extracting retribution from the individuals and entities that he holds responsible for his delusional construct regarding "crimes against humanity," other than to expose them by publishing proof of their crimes. Specifically, he says that he has no plan to cause physical harm to the person or property of others and says that he will leave the question of punishment to those who are lawful he entitled to impose it. -Because the patient's delusional belief seem not to be responding favorably to olanzapine at the higher dose, and because he is exhibiting some symptoms of excess sedation associated with olanzapine at 15 mg daily, his dose of olanzapine (to be given IM if necessary for refusal of p.o. olanzapine) will be reduced to olanzapine 10 mg IM at bedtime, starting tonight. 12/11 The patient is less sedated at the 10 mg of olanzapine IM he continues to refuse oral medications. Provider did again re-present the role of an SSRI that may help but he is clear and adamant about refusal of all medications. 12/12 - he is slightly less sedated at 10mg olanzapine IM each hs, but is more agitated today that he had been and more profuse with this provider about his delusional beliefs and seeing this provider and all medical care here as passive pawns of a broader conspiracy through the [employer]. He continues to decline oral medications, or any form of aftercare for monitoring of irritability and agitation maintaining that he does not have any mental illness and that all he has is "truth." Presently his risk of continuing to incorporate anyone who disagrees with his delusion into the delusion, his unwillingness to take medications after discharge, and unwillingness to participate any form of routine relationship with a behavioral health provider after discharge, and incorporation of his in his delusional system with prior physical aggression are concerning. I believe ongoing inpatient hospitalization is most appropriate setting for care at this time 12/13 - Continue olanzapine 10mg IM each evening (patient continues to refuse PO medications or discussion regarding alternative agents. - Pt continues to appear sedated, though is spending more time out of his room in the afternoons. - Anticipate decision regarding [facility] referral in the next few days 12/14 - Continue current treatment plan, patient reporting improvement in fatigue today - Anticipate update from [facility] soon regarding decision on referral - Pt continues to be resistant to attempts to safety plan or discuss alternative discharge options 12/15 - Continue current treatment plan - patient reports he is better tolerating lower dose of olanzapine but still reports daytime fatigue - Explanation provided to patient regarding request for MRI, heavy metal studies, B12, and folate - patient is persistent in his unwillingness to have these studies completed at this time - Will attempt to gather more information regarding reports of a previous MRI - Could consider cognitive assessment such as MoCA - as patient was limited in his willingness to even discuss superficial details with this provider, cognitive assessment was not attempted today - Pt went outside with staff this afternoon - continue to offer intermittently and assess the appropriateness of his presentation 12/16 - Continue current treatment plan - olanzapine 10mg qHS. Pt continues to refuse PO medications but tolerates IM injections without incident - Pt again unwilling to consider studies to rule out organic causes for the presence of delusions. Although organic cause was questioned during initial admission, it appears less likely to be the case but of course cannot be entirely ruled out without patient's willingness to participate in these studies. History obtained from patient and suggest a long history of OCD characteristics and paranoia that appear to have developed into delusional and persecutory thinking. - Pt remains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
[2019-12-18] MEDS: OLANZAPINE ZYDIS 10 MG ORALLY DIS. TAB PO SCH (21:51)
[2019-12-18] MEDS: OLANZapine 10 MG/2.1 ML SDV IM PRN (22:12)
[2019-12-19] MEDS: MULTIVITAMIN PO SCH (08:55)
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
[2019-12-19] MEDS: OLANZapine 10 MG/2.1 ML SDV IM PRN (21:37)
[2019-12-19] MEDS: OLANZAPINE ZYDIS 5 MG ORALLY DIS. TAB PO SCH (22:00)
[2019-12-19] MEDS: TERBINAFINE CR 30 GM TUBE EXT SCH (23:02)
[2019-12-20] MEDS: MULTIVITAMIN PO SCH (08:10)
[2019-12-20] MEDS: TERBINAFINE CR 30 GM TUBE EXT SCH ×2 (08:11→21:46)
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
[2019-12-20] MEDS: OLANZapine 10 MG/2.1 ML SDV IM PRN (21:46)
[2019-12-20] MEDS: OLANZAPINE ZYDIS 5 MG ORALLY DIS. TAB PO SCH (21:47)
[2019-12-21] MEDS: MULTIVITAMIN PO SCH (08:38)
[2019-12-21] MEDS: TERBINAFINE CR 30 GM TUBE EXT SCH ×2 (08:40→22:22)
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
[2019-12-21] MEDS: OLANZAPINE ZYDIS 5 MG ORALLY DIS. TAB PO SCH (21:24)
[2019-12-21] MEDS: OLANZapine 10 MG/2.1 ML SDV IM PRN (22:29)
[2019-12-22] MEDS: MULTIVITAMIN PO SCH (08:49)
[2019-12-22] MEDS: TERBINAFINE CR 30 GM TUBE EXT SCH ×2 (08:50→22:02)
--- NOTE | 2019-12-22 09:41 | Psychiatric Progress Note ---
Date of Service December 22, 2019 Impression / Recommendations Impression 59-year-old male admitted involuntarily for inpatient psychiatric treatment. Primary diagnosis of delusional disorder, persecutory type. Information provided by his indicates that several years ago certain changes in his department at the [facility] triggered a certain amount of distrust by the patient, which gradually grew into the elaborate, highly systematized delusional belief system that is currently in place. His delusional system was likely amplified by his tendency to obsess, focus on patterns, and look for theoretical explanations. While patient is highly attached to these delusional beliefs and is demonstrating inability/unwillingness to consider they may not be accurate - the primary safety concern surrounding his condition is the fact that he had been demonstrating highly agitated behavior which was threatening the safety of himself and his (throwing furniture at mckeon, ripping off door frames, etc). Although his behavior on the unit has been free of threats and violence, he is refusing to involve his , who reports fear for her safety given his behavior (violence directed at her prior to admission) and the fact that he has implicated her in his delusional system and believes she is conspiring within [place] government against him. Further, he is uncooperative with treatment, is refusing medication (although not resisting when given intramuscular injections of olanzapine), and declining outpatient treatment. This is a difficult and complex situation. The patient's dyscontrol behavior does not seem to be specific to his , and even were he to leave the hospital without going home to his , the behaviors described by his give reason to predict that he would quickly become a danger to himself or other people in the community. He lacks insight, and expresses a firm belief that he is on a mission to protect and save innocent people. His calmer behavior here is also within the context of his taking psychiatric medications, and he has made it a bundantly clear that he will not consider taking any psychiatric medication unless it is forced on him in the hospital. 304 extended involuntarily commitment was granted on 11/30, and referral to [facility] has been sent as he remains a danger to himself and others and is refusing to engage in conversation regarding alternative discharge options. As time has progressed, it appears that he is not responding favorably to olanzapine. He continues to adamantly refuse any type of psychotropic medication voluntarily. At a dose of olanzapine 15 mg intramuscularly at bedtime the patient's behavior on the unit was pleasant and fairly passive (with the exception of increased irritability during meetings with psychiatric providers). However, his delusional belief system remained completely untouched as best we can tell and he began to demonstrate excessive sedation at this higher dose. Does was reduced to 10mg IM on 12/10 with reported improvement in alertness throughout the day. Organic work-up was requested by [facility]; however, patient is unwilling to participate in additional studies (anticipated ordering MRI, heavy metal studies, B12 and folate). We have received word on that the patient was accepted at [facility] - formally placed on wait list on 12/21 with estimated bed date >30 days away. He continues to be incorporating staff and psychiatric providers into his delusional system. (1) Delusional disorder: 11/14 Patient admitted on an involuntary status to the behavioral health unit for continued assessment and treatment as indicated He will be maintained on every 15 minute safety checks We will continue to expand database Consider neuroimaging for w/u of psychosis prn orders for Ativan and Haldol today. I suspect it is likely that he will require medications over objection before he permits any treatment due to what appears to be severely impaired insight. Patient will be reevaluated tomorrow for psychiatric second opinion regarding need for treatment over objection. -presently patient requires continued inpatient hospitalization for workup and treatment of psychosis which was been recently associated with some violent behavior at home. he is at risk of harm to self and others if discharged prematurely. 11/15 -File for 303 involuntary commitment. -Patient is refusing to consider medication, but has haloperidol and Ativan as needed ordered. Would recommend a trial of olanzapine, and agree with medications over objection as he has severe psychotic symptoms which are impairing his ability to function and placing both himself and others at risk of harm due to his violent behavior at home. -Patient is refused to answer questions about whether or not he has guns, so we will need to get this information from his . At this point he is refusing to sign a release for her or anyone else. -Excuse patient from groups due to the severity of his psychosis and violent behavior. Medically necessary private room room due to the same. 11/16 -303 involuntary commitment granted. -Patient continues to refuse to allow his to be involved in treatment. He is now not denying that he was aggressive at home, but is refusing to discuss it, and is focused only on the conspiracy which he says led to his behavior. -Continue to consider medications over objection. At this point, we are attempting to engage the patient in treatment volitionally, and the risk of forcing medications at this time is further alienating him. However, if he is unable to engage in any manner, we will need to reconsider medications over objection. -Patient may attend groups if able to maintain appropriate behavioral control. -Patient has still not been willing to complete admission assessments, and has not been willing to provide certain information. 11/17 -Recommend medications over objection, as the patient is unable to engage in treatment due to the severity of his psychosis and lack of insight, and remains at imminent risk of harm to others, specifically his , if his symptoms remain untreated. He is floridly delusional, now implicating hospital staff in his delusions. He is not able to work as a result of his psychosis, and his is not able to work due to having to supervise him, and is fearful of him given his escalating violence at home. He continues to refuse to allow her to be involved in treatment, is not attending groups, and is refusing to even discuss medication options. Dr. Duarte recommended medications over objection, and I agree, as the patient is unlikely to improve without antipsychotic medication. -Start olanzapine Zydis 5 mg daily, with a 5 mg IM backup for refusal. Order FLP and FG tomorrow for baseline on an atypical antipsychotic. He will also need a medical work-up of psychosis once he is more cooperative, including brain MRI. -Ongoing poor sleep, staff will limit bright lights near his room at night, and if he can be compliant with medication, can move olanzapine to bedtime to assist with sleep. Giving during the day initially to allow for adequate staff in case of need for physical hold or restraint to receive medication. 4/ - Continue olanzapine 5mg daily (offering PO Zydis with IM for refusal) - medications over objection, though patient has been cooperative with his preference for IM administration - Pt offered again PO olanzapine, with the eventual option of converting the medication to HS dosing if he continues to be cooperative - as he reports sedation after receiving the medication - Pt remains delusional and paranoid, unable to discuss examples of how we can assist him during his stay - Maintain MNPR due to level of psychosis - Fasting glucose - wnl at 90; triglycerides elevated at 188, remainder of lipid panel wnl - Continue attempts to coordinate care with patient's 11/19 -Patient is continuing to say that he does not wish for us to speak with his , and he again tells us that he will not sign a consent that will allow us to contact her. As above, his assertion is that he does not want us talking to her because she may tell us things that we will include in the record and that will eventually be used against him, either by the government or by [facility]. As a compromise, the patient says that he will ask his to call us and tell us whether she continues to feel that he is a danger to her, himself, or to anyone else. It was explained that we would also need to be able to talk to her about our concerns and we would need to coordinate aftercare arrangements with her. The patient replied to that by saying simply that he would not allow us to say anything about his care or recommended treatment to her at this time. -There seem to be some early indications that the patient may be responding to olanzapine. Today, when I told him that our concerns about his safety had not to do with his behaviors here in the hospital but, instead, about his behaviors at home (in the community) he quickly responded, "yes, but I am getting medication here!" (He almost immediately realized the implication of what he had just said, and he immediately changed the subject and began talking about how various entities were deliberately provoking him into losing his temper and acting in anger. -The patient tells us that he is using the fact that he has been given intramuscular medications against his will as evidence of our being the "dupes" or agents of the entities behind the conspiracy to silence him. He also reiterates that he believes that taking medication voluntarily is tantamount to acknowledging his need for psychiatric treatment, and he tells us that he has absolutely no psychiatric problem at all and does not need any treatment. -Today, we are increasing his olanzapine's as follows. We will begin olanzapine ODT 10 mg at bedtime starting tonight. We have also changed his order for medications over objection to olanzapine 10 mg IM daily for refusal of p.o. olanzapine. -Although the patient's presentation has many of the symptoms of a delusional disorder, persecutory typegiven the elaborate nature of the delusional system, we continue to suspect that what we are seeing is a somewhat atypical jorge, or discrete manic episodes overlaying a underlying delusional disorder. If the explanation for the patient's presentation is symptoms of a manic episode, his prognosis is better. We discussed the possibility of adding an antiobsessional medication which sometimes helps with pure delusional disorders, but the patient says that, absolutely, he will not take any medication that we offer him voluntarily. 11/22--continue Zyprexa IM hs, continues to refuse family meeting with due to paranoia, refuses 2-3 trial of PO Invega to convert to injectable. 11/23--File for 304 hearing d/t ongoing psychosis, lack of insight, refusal for outpatient treatment or ongoing medication, refusal to involve , and high risk for return to violent behavior if home w/ , whom he believes is part of the conspiracy against him. 11/24 - Continue olanzapine IM, continuing to offer patient PO medication which he is consistently refusing - Pt continues to refuse to involve in conversations regarding discharge and safety planning - 304 hearing scheduled for 11/30; pt continues to be psychotic and remains unable to engage in productive safety and discharge planing, therefore remains at high risk of harm to sefl or others if he is discharged home in his current state 11/25 - Titrating olanzapine to 10mg daily; patient continues to refuse offer for PO and is therefore continuing to receive IM injections each evening - 304 hearing 11/30; pt continues to be unwilling to participate in safety and discharge planning efforts 11/26 -The patient tells me that he received olanzapine 10 mg last evening and says that he feels that it has helped him sleep better. However, he notes that his sleep difficulty is related to the fact that his sleep schedule in the hospital is substantially different from the one that he is used to at home, with bedtime here at the hospital being 3 or 4 hours earlier than he is used to. Nevertheless, he says that he believes that he is not having any side effects from olanzapine and that, in the sense that it does help him fall asleep, it helps. Nevertheless, he also repeats today that he will not continue to take any medication, including olanzapine, if he is discharged. -I spoke with the patient's today, without disclosing any protected clinical data regarding the patient. She acknowledges that he frightens her, and, particularly recently, has caused her to fear for her personal physical safety. At the same time, she says tells me that she thinks that if she gets some advice about how best to "handle somebody who is delusional" possibly by getting into individual therapy, herself, she may be able to take him home. She also reports that should he be released (she is aware of upcoming hearing) that she will agree to take him home, because she loves him and wants to protect him, but continues to fear that he may again lose control of his behavior as a function of his delusions. -Today, the patient tells me that he recognizes that in his upcoming hearing on 11/30 (304) the issue may boil down to whether he can assure that he will be safe in the community and will not represent a risk to anyone else, even if he does not take medication. He also says that he recognizes the "Catch-22" that he is in because he realizes that the hospital is likely to say that his behavior in the hospital has been positively influenced by his taking olanzapine, and that without the structure of the hospital and without the medications, he may revert to the dangerous behaviors that precipitated the admission. -Of concern is the fact that the patient's tells us today that, effective yesterday, he has told her that he will no longer speak to her telephonically, and if he is released from the hospital on Saturday he will simply walk home, and if she is not comfortable being home with him she should leave. However, by the end of today he is allowing that he truly believes that his loves him and would not try to harm him if she had any choice, so he is at least considering contacting her again by telephone. 11/27 -Patient informed of 304 hearing and plan to refer to the [facility], as well as additional labs needed for that referral. -He continues to refuse a family meeting with his , who has expressed ongoing concern for her safety. He continues to refuse p.o. medication, outpatient treatment, and discussion of his aggression at home or plans to mitigate it. He remains at risk of harm to others, particularly his , and if discharged prematurely, as she is implicated in his delusion and he believes she has part of the conspiracy against him. -Encourage the patient to attend groups and focus on his own emotional reaction to his perception of events, healthy coping skills, and a discharge safety plan; all of which thus far he has been unwilling to do. 11/28 - 11/29 -Patient refused PPD, EKG, and chest x-ray for [facility] referral. He is refusing to consider a trial of Invega/MERCADO, and continues to refuse a family meeting. -304 involuntary commitment hearing scheduled for 12/01/2019, and will then pursue referral to the [facility]. 11/30 - 304 involuntary commitment granted today, referral to the [facility] is reportedly supported by the [facility] at this time - Pt was again offered PPD, EKG and CXR for [facility] referral, which he again declined - Although he is not overtly refusing medication changes, he does verbalize desire to give olanzapine "another week" before switching to another agent. 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 He remains delusional and without insight, refusing medication (although getting the IM of Zyprexa daily), a family meeting, or discharge planning/outpatient care. -Recommend referral to [facility] for long-term inpatient treatment, will simultaneously referring for a BCM and working on potential diversion plans. 12/02 - Continue IM olanzapine - as continues to refuse oral medications or discussion regarding alternative agents - Most documentation sent to [facility] for referral - awaiting 303 and 304 findings to be sent and will then fax these as well - Pt continues to decline medical tests generally requested as part of [facility] referral, but cannot force these studies to be done 12/03 -We will increase his dose of IM olanzapine to 12.5 mg at bedtime. The medication thus far does not seem to have had much of a favorable impact on the patient's delusional belief system, and he is not willing to consider antiobsessional medications in the form of a selective serotonin reuptake inhib itor. However, the patient is now sleeping better and his general demeanor has been more calm, more pleasant, and more self-possessed. -The patient reports that he does not feel that he is experiencing any side effects from olanzapine, but fall short of saying that it is helping him in any way, other than perhaps for sleep. He mentions that he sometimes has a pain in his left abdominal wall and lower rib cage that he says he does not feel as a side effect from medication but, rather, the result of his doing sit ups and his bedroom by placing his feet under the mattress and exercising in that way. 12/04 - 12/05 -Zyprexa 12.5 mg IM po qhs, sedation from yesterday seems to be resolving, can likely be increased tomorrow. 12/06 - Continue Zyprexa 12.5mg IM this evening - continue attempts to engage patient in conversation regarding dose increases or consideration of alternative agents - Pt continues to be unwilling to participate in conversation regarding alternative discharge plans to state hospitalization. He continues to refuse to involve his or any other outpatient support in safety/discharge planning. - Referral to [facility] was completed and is reportedly being reviewed. 12/07 - Titrating Zyprexa 15mg IM - patient continues to refuse offer for oral medications. Pt was offered discussion about alternative agents, but declined. - Referral officially received by [facility] on 12/02/2019 (304 findings to be sent once received) - awaiting response regarding acceptance decision - Continue attempts to engage patient in discharge and safety planning - patient continues to be unwilling to discuss possible diversion plans 12/08 - 12/09 - Continue Zyprexa 15mg IM - pt continuing to refuse oral medications - Awaiting response from [facility] regarding referral - Pt remains unwilling to participate in safety planning or exploring diversion plan 12/10 -Patient is exhibiting excess sedation add Zyprexa 15 mg IM at bedtime. Specifically, the patient is observed to be hypersomnolent, has been sleeping off and on throughout the days, and indicates that he feels that at this higher dose of Zyprexa he is experiencing some cognitive slowing. At the same time, he does not seem to be responding to Zyprexa either at high doses or at low doses, other than it may be contributing to his ability to maintain self possession and avoid these sorts of dyscontroled behaviors that precipitated the current admission (for example, breaking furniture, knocking holes in the mckeon of his home, and tearing out shards of woodwork and ways that frightened his ). -The patient remains delusional and harbors an elaborate persecutory delusional system that he often hits that, but is reluctant to discuss in detail much of the time because he says that he fears that information that he shares with us will fall into the wrong hands and will interfere with his ability to expose those persons who he feels are responsible for the referenced "crimes against humanity." -The patient when asked, convincingly states that he is not having any thoughts of extracting retribution from the individuals and entities that he holds responsible for his delusional construct regarding "crimes against humanity," other than to expose them by publishing proof of their crimes. Specifically, he says that he has no plan to cause physical harm to the person or property of others and says that he will leave the question of punishment to those who are lawful he entitled to impose it. -Because the patient's delusional belief seem not to be responding favorably to olanzapine at the higher dose, and because he is exhibiting some symptoms of excess sedation associated with olanzapine at 15 mg daily, his dose of olanzapine (to be given IM if necessary for refusal of p.o. olanzapine) will be reduced to olanzapine 10 mg IM at bedtime, starting tonight. 12/11 The patient is less sedated at the 10 mg of olanzapine IM he continues to refuse oral medications. Provider did again re-present the role of an SSRI that may help but he is clear and adamant about refusal of all medications. 12/12 - he is slightly less sedated at 10mg olanzapine IM each hs, but is more agitated today that he had been and more profuse with this provider about his delusional beliefs and seeing this provider and all medical care here as passive pawns of a broader conspiracy through the [employer]. He continues to decline oral medications, or any form of aftercare for monitoring of irritability and agitation maintaining that he does not have any mental illness and that all he has is "truth." Presently his risk of continuing to incorporate anyone who disagrees with his delusion into the delusion, his unwillingness to take medications after discharge, and unwillingness to participate any form of routine relationship with a behavioral health provider after discharge, and incorporation of his in his delusional system with prior physical aggression are concerning. I believe ongoing inpatient hospitalization is most appropriate setting for care at this time 12/13 - Continue olanzapine 10mg IM each evening (patient continues to refuse PO medications or discussion regarding alternative agents. - Pt continues to appear sedated, though is spending more time out of his room in the afternoons. - Anticipate decision regarding [facility] referral in the next few days 12/14 - Continue current treatment plan, patient reporting improvement in fatigue today - Anticipate update from [facility] soon regarding decision on referral - Pt continues to be resistant to attempts to safety plan or discuss alternative discharge options 12/15 - Continue current treatment plan - patient reports he is better tolerating lower dose of olanzapine but still reports daytime fatigue - Explanation provided to patient regarding request for MRI, heavy metal studies, B12, and folate - patient is persistent in his unwillingness to have these studies completed at this time - Will attempt to gather more information regarding reports of a previous MRI - Could consider cognitive assessment such as MoCA - as patient was limited in his willingness to even discuss superficial details with this provider, cognitive assessment was not attempted today - Pt went outside with staff this afternoon - continue to offer intermittently and assess the appropriateness of his presentation 12/16 - Continue current treatment plan - olanzapine 10mg qHS. Pt continues to refuse PO medications but tolerates IM injections without incident - Pt again unwilling to consider studies to rule out organic causes for the presence of delusions. Although organic cause was questioned during initial admission, it appears less likely to be the case but of course cannot be entirely ruled out without patient's willingness to participate in these studies. History obtained from patient and suggest a long history of OCD characteristics and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
[2019-12-22] MEDS: OLANZapine 10 MG/2.1 ML SDV IM PRN (22:01)
[2019-12-23] MEDS: MULTIVITAMIN PO SCH (08:42)
[2019-12-23] MEDS: TERBINAFINE CR 30 GM TUBE EXT SCH ×2 (08:43→22:04)
--- NOTE | 2019-12-23 08:53 | Psychiatric Progress Note ---
Date of Service December 23, 2019 Impression / Recommendations Impression 59-year-old male admitted involuntarily for inpatient psychiatric treatment. Primary diagnosis of delusional disorder, persecutory type. Information provided by his indicates that several years ago certain changes in his department at the [facility] triggered a certain amount of distrust by the patient, which gradually grew into the elaborate, highly systematized delusional belief system that is currently in place. His delusional system was likely amplified by his tendency to obsess, focus on patterns, and look for theoretical explanations. While patient is highly attached to these delusional beliefs and is demonstrating inability/unwillingness to consider they may not be accurate - the primary safety concern surrounding his condition is the fact that he had been demonstrating highly agitated behavior which was threatening the safety of himself and his (throwing furniture at mckeon, ripping off door frames, etc). Although his behavior on the unit has been free of threats and violence, he is refusing to involve his , who reports fear for her safety given his behavior (violence directed at her prior to admission) and the fact that he has implicated her in his delusional system and believes she is conspiring within [place] government against him. Further, he is uncooperative with treatment, is refusing medication (although not resisting when given intramuscular injections of olanzapine), and declining outpatient treatment. This is a difficult and complex situation. The patient's dyscontrol behavior does not seem to be specific to his , and even were he to leave the hospital without going home to his , the behaviors described by his give reason to predict that he would quickly become a danger to himself or other people in the community. He lacks insight, and expresses a firm belief that he is on a mission to protect and save innocent people. His calmer behavior here is also within the context of his taking psychiatric medications, and he has made it a bundantly clear that he will not consider taking any psychiatric medication unless it is forced on him in the hospital. 304 extended involuntarily commitment was granted on 11/30, and referral to the [facility] has been sent as he remains a danger to himself and others and is refusing to engage in conversation regarding alternative discharge options. As time has progressed, it appears that he is not responding favorably to olanzapine. He continues to adamantly refuse any type of psychotropic medication voluntarily. At a dose of olanzapine 15 mg intramuscularly at bedtime the patient's behavior on the unit was pleasant and fairly passive (with the exception of increased irritability during meetings with psychiatric providers). However, his delusional belief system remained completely untouched as best we can tell and he began to demonstrate excessive sedation at this higher dose. Does was reduced to 10mg IM on 12/10 with reported improvement in alertness throughout the day. Organic work-up was requested by [facility]; however, patient is unwilling to participate in additional studies (anticipated ordering MRI, heavy metal studies, B12 and folate). We have received word on that the patient was accepted at [facility] - formally placed on wait list on 12/21 with estimated bed date >30 days away. He continues to be incorporating staff and psychiatric providers into his delusional system. (1) Delusional disorder: 11/14 Patient admitted on an involuntary status to the behavioral health unit for continued assessment and treatment as indicated He will be maintained on every 15 minute safety checks We will continue to expand database Consider neuroimaging for w/u of psychosis prn orders for Ativan and Haldol today. I suspect it is likely that he will require medications over objection before he permits any treatment due to what appears to be severely impaired insight. Patient will be reevaluated tomorrow for psychiatric second opinion regarding need for treatment over objection. -presently patient requires continued inpatient hospitalization for workup and treatment of psychosis which was been recently associated with some violent behavior at home. he is at risk of harm to self and others if discharged prematurely. 11/15 -File for 303 involuntary commitment. -Patient is refusing to consider medication, but has haloperidol and Ativan as needed ordered. Would recommend a trial of olanzapine, and agree with medications over objection as he has severe psychotic symptoms which are impairing his ability to function and placing both himself and others at risk of harm due to his violent behavior at home. -Patient is refused to answer questions about whether or not he has guns, so we will need to get this information from his . At this point he is refusing to sign a release for her or anyone else. -Excuse patient from groups due to the severity of his psychosis and violent behavior. Medically necessary private room room due to the same. 11/16 -303 involuntary commitment granted. -Patient continues to refuse to allow his to be involved in treatment. He is now not denying that he was aggressive at home, but is refusing to discuss it, and is focused only on the conspiracy which he says led to his behavior. -Continue to consider medications over objection. At this point, we are attempting to engage the patient in treatment volitionally, and the risk of forcing medications at this time is further alienating him. However, if he is unable to engage in any manner, we will need to reconsider medications over objection. -Patient may attend groups if able to maintain appropriate behavioral control. -Patient has still not been willing to complete admission assessments, and has not been willing to provide certain information. 11/17 -Recommend medications over objection, as the patient is unable to engage in treatment due to the severity of his psychosis and lack of insight, and remains at imminent risk of harm to others, specifically his , if his symptoms remain untreated. He is floridly delusional, now implicating hospital staff in his delusions. He is not able to work as a result of his psychosis, and his is not able to work due to having to supervise him, and is fearful of him given his escalating violence at home. He continues to refuse to allow her to be involved in treatment, is not attending groups, and is refusing to even discuss medication options. Dr. Duarte recommended medications over objection, and I agree, as the patient is unlikely to improve without antipsychotic medication. -Start olanzapine Zydis 5 mg daily, with a 5 mg IM backup for refusal. Order FLP and FG tomorrow for baseline on an atypical antipsychotic. He will also need a medical work-up of psychosis once he is more cooperative, including brain MRI. -Ongoing poor sleep, staff will limit bright lights near his room at night, and if he can be compliant with medication, can move olanzapine to bedtime to assist with sleep. Giving during the day initially to allow for adequate staff in case of need for physical hold or restraint to receive medication. 4/ - Continue olanzapine 5mg daily (offering PO Zydis with IM for refusal) - medications over objection, though patient has been cooperative with his preference for IM administration - Pt offered again PO olanzapine, with the eventual option of converting the medication to HS dosing if he continues to be cooperative - as he reports sedation after receiving the medication - Pt remains delusional and paranoid, unable to discuss examples of how we can assist him during his stay - Maintain MNPR due to level of psychosis - Fasting glucose - wnl at 90; triglycerides elevated at 188, remainder of lipid panel wnl - Continue attempts to coordinate care with patient's 11/19 -Patient is continuing to say that he does not wish for us to speak with his , and he again tells us that he will not sign a consent that will allow us to contact her. As above, his assertion is that he does not want us talking to her because she may tell us things that we will include in the record and that will eventually be used against him, either by the government or by [facility]. As a compromise, the patient says that he will ask his to call us and tell us whether she continues to feel that he is a danger to her, himself, or to anyone else. It was explained that we would also need to be able to talk to her about our concerns and we would need to coordinate aftercare arrangements with her. The patient replied to that by saying simply that he would not allow us to say anything about his care or recommended treatment to her at this time. -There seem to be some early indications that the patient may be responding to olanzapine. Today, when I told him that our concerns about his safety had not to do with his behaviors here in the hospital but, instead, about his behaviors at home (in the community) he quickly responded, "yes, but I am getting medication here!" (He almost immediately realized the implication of what he had just said, and he immediately changed the subject and began talking about how various entities were deliberately provoking him into losing his temper and acting in anger. -The patient tells us that he is using the fact that he has been given intramuscular medications against his will as evidence of our being the "dupes" or agents of the entities behind the conspiracy to silence him. He also reiterates that he believes that taking medication voluntarily is tantamount to acknowledging his need for psychiatric treatment, and he tells us that he has absolutely no psychiatric problem at all and does not need any treatment. -Today, we are increasing his olanzapine's as follows. We will begin olanzapine ODT 10 mg at bedtime starting tonight. We have also changed his order for medications over objection to olanzapine 10 mg IM daily for refusal of p.o. olanzapine. -Although the patient's presentation has many of the symptoms of a delusional disorder, persecutory typegiven the elaborate nature of the delusional system, we continue to suspect that what we are seeing is a somewhat atypical jorge, or discrete manic episodes overlaying a underlying delusional disorder. If the explanation for the patient's presentation is symptoms of a manic episode, his prognosis is better. We discussed the possibility of adding an antiobsessional medication which sometimes helps with pure delusional disorders, but the patient says that, absolutely, he will not take any medication that we offer him voluntarily. 11/22--continue Zyprexa IM hs, continues to refuse family meeting with due to paranoia, refuses 2-3 trial of PO Invega to convert to injectable. 11/23--File for 304 hearing d/t ongoing psychosis, lack of insight, refusal for outpatient treatment or ongoing medication, refusal to involve , and high risk for return to violent behavior if home w/ , whom he believes is part of the conspiracy against him. 11/24 - Continue olanzapine IM, continuing to offer patient PO medication which he is consistently refusing - Pt continues to refuse to involve in conversations regarding discharge and safety planning - 304 hearing scheduled for 11/30; pt continues to be psychotic and remains unable to engage in productive safety and discharge planing, therefore remains at high risk of harm to sefl or others if he is discharged home in his current state 11/25 - Titrating olanzapine to 10mg daily; patient continues to refuse offer for PO and is therefore continuing to receive IM injections each evening - 304 hearing 11/30; pt continues to be unwilling to participate in safety and discharge planning efforts 11/26 -The patient tells me that he received olanzapine 10 mg last evening and says that he feels that it has helped him sleep better. However, he notes that his sleep difficulty is related to the fact that his sleep schedule in the hospital is substantially different from the one that he is used to at home, with bedtime here at the hospital being 3 or 4 hours earlier than he is used to. Nevertheless, he says that he believes that he is not having any side effects from olanzapine and that, in the sense that it does help him fall asleep, it helps. Nevertheless, he also repeats today that he will not continue to take any medication, including olanzapine, if he is discharged. -I spoke with the patient's today, without disclosing any protected clinical data regarding the patient. She acknowledges that he frightens her, and, particularly recently, has caused her to fear for her personal physical safety. At the same time, she says tells me that she thinks that if she gets some advice about how best to "handle somebody who is delusional" possibly by getting into individual therapy, herself, she may be able to take him home. She also reports that should he be released (she is aware of upcoming hearing) that she will agree to take him home, because she loves him and wants to protect him, but continues to fear that he may again lose control of his behavior as a function of his delusions. -Today, the patient tells me that he recognizes that in his upcoming hearing on 11/30 (304) the issue may boil down to whether he can assure that he will be safe in the community and will not represent a risk to anyone else, even if he does not take medication. He also says that he recognizes the "Catch-22" that he is in because he realizes that the hospital is likely to say that his behavior in the hospital has been positively influenced by his taking olanzapine, and that without the structure of the hospital and without the medications, he may revert to the dangerous behaviors that precipitated the admission. -Of concern is the fact that the patient's tells us today that, effective yesterday, he has told her that he will no longer speak to her telephonically, and if he is released from the hospital on Saturday he will simply walk home, and if she is not comfortable being home with him she should leave. However, by the end of today he is allowing that he truly believes that his loves him and would not try to harm him if she had any choice, so he is at least considering contacting her again by telephone. 11/27 -Patient informed of 304 hearing and plan to refer to the [facility], as well as additional labs needed for that referral. -He continues to refuse a family meeting with his , who has expressed ongoing concern for her safety. He continues to refuse p.o. medication, outpatient treatment, and discussion of his aggression at home or plans to mitigate it. He remains at risk of harm to others, particularly his , and if discharged prematurely, as she is implicated in his delusion and he believes she has part of the conspiracy against him. -Encourage the patient to attend groups and focus on his own emotional reaction to his perception of events, healthy coping skills, and a discharge safety plan; all of which thus far he has been unwilling to do. 11/28 - 11/29 -Patient refused PPD, EKG, and chest x-ray for [facility] referral. He is refusing to consider a trial of Invega/MERCADO, and continues to refuse a family meeting. -304 involuntary commitment hearing scheduled for 12/01/2019, and will then pursue referral to the [facility]. 11/30 - 304 involuntary commitment granted today, referral to the [facility] is reportedly supported by the [facility] at this time - Pt was again offered PPD, EKG and CXR for [facility] referral, which he again declined - Although he is not overtly refusing medication changes, he does verbalize desire to give olanzapine "another week" before switching to another agent. 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 He remains delusional and without insight, refusing medication (although getting the IM of Zyprexa daily), a family meeting, or discharge planning/outpatient care. -Recommend referral to [facility] for long-term inpatient treatment, will simultaneously referring for a BCM and working on potential diversion plans. 12/02 - Continue IM olanzapine - as continues to refuse oral medications or discussion regarding alternative agents - Most documentation sent to [facility] for referral - awaiting 303 and 304 findings to be sent and will then fax these as well - Pt continues to decline medical tests generally requested as part of [facility] referral, but cannot force these studies to be done 12/03 -We will increase his dose of IM olanzapine to 12.5 mg at bedtime. The medication thus far does not seem to have had much of a favorable impact on the patient's delusional belief system, and he is not willing to consider antiobsessional medications in the form of a selective serotonin reuptake inhib itor. However, the patient is now sleeping better and his general demeanor has been more calm, more pleasant, and more self-possessed. -The patient reports that he does not feel that he is experiencing any side effects from olanzapine, but fall short of saying that it is helping him in any way, other than perhaps for sleep. He mentions that he sometimes has a pain in his left abdominal wall and lower rib cage that he says he does not feel as a side effect from medication but, rather, the result of his doing sit ups and his bedroom by placing his feet under the mattress and exercising in that way. 12/04 - 12/05 -Zyprexa 12.5 mg IM po qhs, sedation from yesterday seems to be resolving, can likely be increased tomorrow. 12/06 - Continue Zyprexa 12.5mg IM this evening - continue attempts to engage patient in conversation regarding dose increases or consideration of alternative agents - Pt continues to be unwilling to participate in conversation regarding alternative discharge plans to state hospitalization. He continues to refuse to involve his or any other outpatient support in safety/discharge planning. - Referral to [facility] was completed and is reportedly being reviewed. 12/07 - Titrating Zyprexa 15mg IM - patient continues to refuse offer for oral medications. Pt was offered discussion about alternative agents, but declined. - Referral officially received by [facility] on 12/02/2019 (304 findings to be sent once received) - awaiting response regarding acceptance decision - Continue attempts to engage patient in discharge and safety planning - patient continues to be unwilling to discuss possible diversion plans 12/08 - 12/09 - Continue Zyprexa 15mg IM - pt continuing to refuse oral medications - Awaiting response from [facility] regarding referral - Pt remains unwilling to participate in safety planning or exploring diversion plan 12/10 -Patient is exhibiting excess sedation add Zyprexa 15 mg IM at bedtime. Specifically, the patient is observed to be hypersomnolent, has been sleeping off and on throughout the days, and indicates that he feels that at this higher dose of Zyprexa he is experiencing some cognitive slowing. At the same time, he does not seem to be responding to Zyprexa either at high doses or at low doses, other than it may be contributing to his ability to maintain self possession and avoid these sorts of dyscontroled behaviors that precipitated the current admission (for example, breaking furniture, knocking holes in the mckeon of his home, and tearing out shards of woodwork and ways that frightened his ). -The patient remains delusional and harbors an elaborate persecutory delusional system that he often hits that, but is reluctant to discuss in detail much of the time because he says that he fears that information that he shares with us will fall into the wrong hands and will interfere with his ability to expose those persons who he feels are responsible for the referenced "crimes against humanity." -The patient when asked, convincingly states that he is not having any thoughts of extracting retribution from the individuals and entities that he holds responsible for his delusional construct regarding "crimes against humanity," other than to expose them by publishing proof of their crimes. Specifically, he says that he has no plan to cause physical harm to the person or property of others and says that he will leave the question of punishment to those who are lawful he entitled to impose it. -Because the patient's delusional belief seem not to be responding favorably to olanzapine at the higher dose, and because he is exhibiting some symptoms of excess sedation associated with olanzapine at 15 mg daily, his dose of olanzapine (to be given IM if necessary for refusal of p.o. olanzapine) will be reduced to olanzapine 10 mg IM at bedtime, starting tonight. 12/11 The patient is less sedated at the 10 mg of olanzapine IM he continues to refuse oral medications. Provider did again re-present the role of an SSRI that may help but he is clear and adamant about refusal of all medications. 12/12 - he is slightly less sedated at 10mg olanzapine IM each hs, but is more agitated today that he had been and more profuse with this provider about his delusional beliefs and seeing this provider and all medical care here as passive pawns of a broader conspiracy through the [employer]. He continues to decline oral medications, or any form of aftercare for monitoring of irritability and agitation maintaining that he does not have any mental illness and that all he has is "truth." Presently his risk of continuing to incorporate anyone who disagrees with his delusion into the delusion, his unwillingness to take medications after discharge, and unwillingness to participate any form of routine relationship with a behavioral health provider after discharge, and incorporation of his in his delusional system with prior physical aggression are concerning. I believe ongoing inpatient hospitalization is most appropriate setting for care at this time 12/13 - Continue olanzapine 10mg IM each evening (patient continues to refuse PO medications or discussion regarding alternative agents. - Pt continues to appear sedated, though is spending more time out of his room in the afternoons. - Anticipate decision regarding [facility] referral in the next few days 12/14 - Continue current treatment plan, patient reporting improvement in fatigue today - Anticipate update from [facility] soon regarding decision on referral - Pt continues to be resistant to attempts to safety plan or discuss alternative discharge options 12/15 - Continue current treatment plan - patient reports he is better tolerating lower dose of olanzapine but still reports daytime fatigue - Explanation provided to patient regarding request for MRI, heavy metal studies, B12, and folate - patient is persistent in his unwillingness to have these studies completed at this time - Will attempt to gather more information regarding reports of a previous MRI - Could consider cognitive assessment such as MoCA - as patient was limited in his willingness to even discuss superficial details with this provider, cognitive assessment was not attempted today - Pt went outside with staff this afternoon - continue to offer intermittently and assess the appropriateness of his presentation 12/16 - Continue current treatment plan - olanzapine 10mg qHS. Pt continues to refuse PO medications but tolerates IM injections without incident - Pt again unwilling to consider studies to rule out organic causes for the presence of delusions. Although organic cause was questioned during initial admission, it appears less likely to be the case but of course cannot be entirely ruled out without patient's willingness to participate in these studies. History obtained from patient and suggest a long history of OCD characteristics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
[2019-12-23] MEDS: OLANZapine 10 MG/2.1 ML SDV IM PRN (21:56)
[2019-12-23] MEDS: OLANZAPINE ZYDIS 5 MG ORALLY DIS. TAB PO SCH (22:04)
--- NOTE | 2019-12-24 08:53 | Psychiatric Progress Note ---
Date of Service December 24, 2019 Impression / Recommendations Impression 59-year-old male admitted involuntarily for inpatient psychiatric treatment. Primary diagnosis of delusional disorder, persecutory type. Information provided by his indicates that several years ago certain changes in his department at the [facility] triggered a certain amount of distrust by the patient, which gradually grew into the elaborate, highly systematized delusional belief system that is currently in place. His delusional system was likely amplified by his tendency to obsess, focus on patterns, and look for theoretical explanations. While patient is highly attached to these delusional beliefs and is demonstrating inability/unwillingness to consider they may not be accurate - the primary safety concern surrounding his condition is the fact that he had been demonstrating highly agitated behavior which was threatening the safety of himself and his (throwing furniture at mckeon, ripping off door frames, etc). Although his behavior on the unit has been free of threats and violence, he is refusing to involve his , who reports fear for her safety given his behavior (violence directed at her prior to admission) and the fact that he has implicated her in his delusional system and believes she is conspiring within [place] government against him. Further, he is uncooperative with treatment, is refusing medication (although not resisting when given intramuscular injections of olanzapine), and declining outpatient treatment. This is a difficult and complex situation. The patient's dyscontrol behavior does not seem to be specific to his , and even were he to leave the hospital without going home to his , the behaviors described by his give reason to predict that he would quickly become a danger to himself or other people in the community. He lacks insight, and expresses a firm belief that he is on a mission to protect and save innocent people. His calmer behavior here is also within the context of his taking psychiatric medications, and he has made it a bundantly clear that he will not consider taking any psychiatric medication unless it is forced on him in the hospital. 304 extended involuntarily commitment was granted on 11/30, and referral to the [facility] has been sent as he remains a danger to himself and others and is refusing to engage in conversation regarding alternative discharge options. As time has progressed, it appears that he is not responding favorably to olanzapine. He continues to adamantly refuse any type of psychotropic medication voluntarily. At a dose of olanzapine 15 mg intramuscularly at bedtime the patient's behavior on the unit was pleasant and fairly passive (with the exception of increased irritability during meetings with psychiatric providers). However, his delusional belief system remained completely untouched as best we can tell and he began to demonstrate excessive sedation at this higher dose. Does was reduced to 10mg IM on 12/10 with reported improvement in alertness throughout the day. Organic work-up was requested by [facility]; however, patient is unwilling to participate in additional studies (anticipated ordering MRI, heavy metal studies, B12 and folate). We have received word on that the patient was accepted at [facility] - formally placed on wait list on 12/21 with estimated bed date >30 days away. He continues to be incorporating staff and psychiatric providers into his delusional system. (1) Delusional disorder: 11/14 Patient admitted on an involuntary status to the behavioral health unit for continued assessment and treatment as indicated He will be maintained on every 15 minute safety checks We will continue to expand database Consider neuroimaging for w/u of psychosis prn orders for Ativan and Haldol today. I suspect it is likely that he will require medications over objection before he permits any treatment due to what appears to be severely impaired insight. Patient will be reevaluated tomorrow for psychiatric second opinion regarding need for treatment over objection. -presently patient requires continued inpatient hospitalization for workup and treatment of psychosis which was been recently associated with some violent behavior at home. he is at risk of harm to self and others if discharged prematurely. 11/15 -File for 303 involuntary commitment. -Patient is refusing to consider medication, but has haloperidol and Ativan as needed ordered. Would recommend a trial of olanzapine, and agree with medications over objection as he has severe psychotic symptoms which are impairing his ability to function and placing both himself and others at risk of harm due to his violent behavior at home. -Patient is refused to answer questions about whether or not he has guns, so we will need to get this information from his . At this point he is refusing to sign a release for her or anyone else. -Excuse patient from groups due to the severity of his psychosis and violent behavior. Medically necessary private room room due to the same. 11/16 -303 involuntary commitment granted. -Patient continues to refuse to allow his to be involved in treatment. He is now not denying that he was aggressive at home, but is refusing to discuss it, and is focused only on the conspiracy which he says led to his behavior. -Continue to consider medications over objection. At this point, we are attempting to engage the patient in treatment volitionally, and the risk of forcing medications at this time is further alienating him. However, if he is unable to engage in any manner, we will need to reconsider medications over objection. -Patient may attend groups if able to maintain appropriate behavioral control. -Patient has still not been willing to complete admission assessments, and has not been willing to provide certain information. 11/17 -Recommend medications over objection, as the patient is unable to engage in treatment due to the severity of his psychosis and lack of insight, and remains at imminent risk of harm to others, specifically his , if his symptoms remain untreated. He is floridly delusional, now implicating hospital staff in his delusions. He is not able to work as a result of his psychosis, and his is not able to work due to having to supervise him, and is fearful of him given his escalating violence at home. He continues to refuse to allow her to be involved in treatment, is not attending groups, and is refusing to even discuss medication options. Dr. Duarte recommended medications over objection, and I agree, as the patient is unlikely to improve without antipsychotic medication. -Start olanzapine Zydis 5 mg daily, with a 5 mg IM backup for refusal. Order FLP and FG tomorrow for baseline on an atypical antipsychotic. He will also need a medical work-up of psychosis once he is more cooperative, including brain MRI. -Ongoing poor sleep, staff will limit bright lights near his room at night, and if he can be compliant with medication, can move olanzapine to bedtime to assist with sleep. Giving during the day initially to allow for adequate staff in case of need for physical hold or restraint to receive medication. 4/ - Continue olanzapine 5mg daily (offering PO Zydis with IM for refusal) - medications over objection, though patient has been cooperative with his preference for IM administration - Pt offered again PO olanzapine, with the eventual option of converting the medication to HS dosing if he continues to be cooperative - as he reports sedation after receiving the medication - Pt remains delusional and paranoid, unable to discuss examples of how we can assist him during his stay - Maintain MNPR due to level of psychosis - Fasting glucose - wnl at 90; triglycerides elevated at 188, remainder of lipid panel wnl - Continue attempts to coordinate care with patient's 11/19 -Patient is continuing to say that he does not wish for us to speak with his , and he again tells us that he will not sign a consent that will allow us to contact her. As above, his assertion is that he does not want us talking to her because she may tell us things that we will include in the record and that will eventually be used against him, either by the government or by [facility]. As a compromise, the patient says that he will ask his to call us and tell us whether she continues to feel that he is a danger to her, himself, or to anyone else. It was explained that we would also need to be able to talk to her about our concerns and we would need to coordinate aftercare arrangements with her. The patient replied to that by saying simply that he would not allow us to say anything about his care or recommended treatment to her at this time. -There seem to be some early indications that the patient may be responding to olanzapine. Today, when I told him that our concerns about his safety had not to do with his behaviors here in the hospital but, instead, about his behaviors at home (in the community) he quickly responded, "yes, but I am getting medication here!" (He almost immediately realized the implication of what he had just said, and he immediately changed the subject and began talking about how various entities were deliberately provoking him into losing his temper and acting in anger. -The patient tells us that he is using the fact that he has been given intramuscular medications against his will as evidence of our being the "dupes" or agents of the entities behind the conspiracy to silence him. He also reiterates that he believes that taking medication voluntarily is tantamount to acknowledging his need for psychiatric treatment, and he tells us that he has absolutely no psychiatric problem at all and does not need any treatment. -Today, we are increasing his olanzapine's as follows. We will begin olanzapine ODT 10 mg at bedtime starting tonight. We have also changed his order for medications over objection to olanzapine 10 mg IM daily for refusal of p.o. olanzapine. -Although the patient's presentation has many of the symptoms of a delusional disorder, persecutory typegiven the elaborate nature of the delusional system, we continue to suspect that what we are seeing is a somewhat atypical jorge, or discrete manic episodes overlaying a underlying delusional disorder. If the explanation for the patient's presentation is symptoms of a manic episode, his prognosis is better. We discussed the possibility of adding an antiobsessional medication which sometimes helps with pure delusional disorders, but the patient says that, absolutely, he will not take any medication that we offer him voluntarily. 11/22--continue Zyprexa IM hs, continues to refuse family meeting with due to paranoia, refuses 2-3 trial of PO Invega to convert to injectable. 11/23--File for 304 hearing d/t ongoing psychosis, lack of insight, refusal for outpatient treatment or ongoing medication, refusal to involve , and high risk for return to violent behavior if home w/ , whom he believes is part of the conspiracy against him. 11/24 - Continue olanzapine IM, continuing to offer patient PO medication which he is consistently refusing - Pt continues to refuse to involve in conversations regarding discharge and safety planning - 304 hearing scheduled for 11/30; pt continues to be psychotic and remains unable to engage in productive safety and discharge planing, therefore remains at high risk of harm to sefl or others if he is discharged home in his current state 11/25 - Titrating olanzapine to 10mg daily; patient continues to refuse offer for PO and is therefore continuing to receive IM injections each evening - 304 hearing 11/30; pt continues to be unwilling to participate in safety and discharge planning efforts 11/26 -The patient tells me that he received olanzapine 10 mg last evening and says that he feels that it has helped him sleep better. However, he notes that his sleep difficulty is related to the fact that his sleep schedule in the hospital is substantially different from the one that he is used to at home, with bedtime here at the hospital being 3 or 4 hours earlier than he is used to. Nevertheless, he says that he believes that he is not having any side effects from olanzapine and that, in the sense that it does help him fall asleep, it helps. Nevertheless, he also repeats today that he will not continue to take any medication, including olanzapine, if he is discharged. -I spoke with the patient's today, without disclosing any protected clinical data regarding the patient. She acknowledges that he frightens her, and, particularly recently, has caused her to fear for her personal physical safety. At the same time, she says tells me that she thinks that if she gets some advice about how best to "handle somebody who is delusional" possibly by getting into individual therapy, herself, she may be able to take him home. She also reports that should he be released (she is aware of upcoming hearing) that she will agree to take him home, because she loves him and wants to protect him, but continues to fear that he may again lose control of his behavior as a function of his delusions. -Today, the patient tells me that he recognizes that in his upcoming hearing on 11/30 (304) the issue may boil down to whether he can assure that he will be safe in the community and will not represent a risk to anyone else, even if he does not take medication. He also says that he recognizes the "Catch-22" that he is in because he realizes that the hospital is likely to say that his behavior in the hospital has been positively influenced by his taking olanzapine, and that without the structure of the hospital and without the medications, he may revert to the dangerous behaviors that precipitated the admission. -Of concern is the fact that the patient's tells us today that, effective yesterday, he has told her that he will no longer speak to her telephonically, and if he is released from the hospital on Saturday he will simply walk home, and if she is not comfortable being home with him she should leave. However, by the end of today he is allowing that he truly believes that his loves him and would not try to harm him if she had any choice, so he is at least considering contacting her again by telephone. 11/27 -Patient informed of 304 hearing and plan to refer to the [facility], as well as additional labs needed for that referral. -He continues to refuse a family meeting with his , who has expressed ongoing concern for her safety. He continues to refuse p.o. medication, outpatient treatment, and discussion of his aggression at home or plans to mitigate it. He remains at risk of harm to others, particularly his , and if discharged prematurely, as she is implicated in his delusion and he believes she has part of the conspiracy against him. -Encourage the patient to attend groups and focus on his own emotional reaction to his perception of events, healthy coping skills, and a discharge safety plan; all of which thus far he has been unwilling to do. 11/28 - 11/29 -Patient refused PPD, EKG, and chest x-ray for [facility] referral. He is refusing to consider a trial of Invega/MERCADO, and continues to refuse a family meeting. -304 involuntary commitment hearing scheduled for 12/01/2019, and will then pursue referral to the [facility]. 11/30 - 304 involuntary commitment granted today, referral to the [facility] is reportedly supported by the [facility] at this time - Pt was again offered PPD, EKG and CXR for [facility] referral, which he again declined - Although he is not overtly refusing medication changes, he does verbalize desire to give olanzapine "another week" before switching to another agent. 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 He remains delusional and without insight, refusing medication (although getting the IM of Zyprexa daily), a family meeting, or discharge planning/outpatient care. -Recommend referral to [facility] for long-term inpatient treatment, will simultaneously referring for a BCM and working on potential diversion plans. 12/02 - Continue IM olanzapine - as continues to refuse oral medications or discussion regarding alternative agents - Most documentation sent to [facility] for referral - awaiting 303 and 304 findings to be sent and will then fax these as well - Pt continues to decline medical tests generally requested as part of [facility] referral, but cannot force these studies to be done 12/03 -We will increase his dose of IM olanzapine to 12.5 mg at bedtime. The medication thus far does not seem to have had much of a favorable impact on the patient's delusional belief system, and he is not willing to consider antiobsessional medications in the form of a selective serotonin reuptake inhib itor. However, the patient is now sleeping better and his general demeanor has been more calm, more pleasant, and more self-possessed. -The patient reports that he does not feel that he is experiencing any side effects from olanzapine, but fall short of saying that it is helping him in any way, other than perhaps for sleep. He mentions that he sometimes has a pain in his left abdominal wall and lower rib cage that he says he does not feel as a side effect from medication but, rather, the result of his doing sit ups and his bedroom by placing his feet under the mattress and exercising in that way. 12/04 - 12/05 -Zyprexa 12.5 mg IM po qhs, sedation from yesterday seems to be resolving, can likely be increased tomorrow. 12/06 - Continue Zyprexa 12.5mg IM this evening - continue attempts to engage patient in conversation regarding dose increases or consideration of alternative agents - Pt continues to be unwilling to participate in conversation regarding alternative discharge plans to state hospitalization. He continues to refuse to involve his or any other outpatient support in safety/discharge planning. - Referral to [facility] was completed and is reportedly being reviewed. 12/07 - Titrating Zyprexa 15mg IM - patient continues to refuse offer for oral medications. Pt was offered discussion about alternative agents, but declined. - Referral officially received by [facility] on 12/02/2019 (304 findings to be sent once received) - awaiting response regarding acceptance decision - Continue attempts to engage patient in discharge and safety planning - patient continues to be unwilling to discuss possible diversion plans 12/08 - 12/09 - Continue Zyprexa 15mg IM - pt continuing to refuse oral medications - Awaiting response from [facility] regarding referral - Pt remains unwilling to participate in safety planning or exploring diversion plan 12/10 -Patient is exhibiting excess sedation add Zyprexa 15 mg IM at bedtime. Specifically, the patient is observed to be hypersomnolent, has been sleeping off and on throughout the days, and indicates that he feels that at this higher dose of Zyprexa he is experiencing some cognitive slowing. At the same time, he does not seem to be responding to Zyprexa either at high doses or at low doses, other than it may be contributing to his ability to maintain self possession and avoid these sorts of dyscontroled behaviors that precipitated the current admission (for example, breaking furniture, knocking holes in the mckeon of his home, and tearing out shards of woodwork and ways that frightened his ). -The patient remains delusional and harbors an elaborate persecutory delusional system that he often hits that, but is reluctant to discuss in detail much of the time because he says that he fears that information that he shares with us will fall into the wrong hands and will interfere with his ability to expose those persons who he feels are responsible for the referenced "crimes against humanity." -The patient when asked, convincingly states that he is not having any thoughts of extracting retribution from the individuals and entities that he holds responsible for his delusional construct regarding "crimes against humanity," other than to expose them by publishing proof of their crimes. Specifically, he says that he has no plan to cause physical harm to the person or property of others and says that he will leave the question of punishment to those who are lawful he entitled to impose it. -Because the patient's delusional belief seem not to be responding favorably to olanzapine at the higher dose, and because he is exhibiting some symptoms of excess sedation associated with olanzapine at 15 mg daily, his dose of olanzapine (to be given IM if necessary for refusal of p.o. olanzapine) will be reduced to olanzapine 10 mg IM at bedtime, starting tonight. 12/11 The patient is less sedated at the 10 mg of olanzapine IM he continues to refuse oral medications. Provider did again re-present the role of an SSRI that may help but he is clear and adamant about refusal of all medications. 12/12 - he is slightly less sedated at 10mg olanzapine IM each hs, but is more agitated today that he had been and more profuse with this provider about his delusional beliefs and seeing this provider and all medical care here as passive pawns of a broader conspiracy through the [employer]. He continues to decline oral medications, or any form of aftercare for monitoring of irritability and agitation maintaining that he does not have any mental illness and that all he has is "truth." Presently his risk of continuing to incorporate anyone who disagrees with his delusion into the delusion, his unwillingness to take medications after discharge, and unwillingness to participate any form of routine relationship with a behavioral health provider after discharge, and incorporation of his in his delusional system with prior physical aggression are concerning. I believe ongoing inpatient hospitalization is most appropriate setting for care at this time 12/13 - Continue olanzapine 10mg IM each evening (patient continues to refuse PO medications or discussion regarding alternative agents. - Pt continues to appear sedated, though is spending more time out of his room in the afternoons. - Anticipate decision regarding [facility] referral in the next few days 12/14 - Continue current treatment plan, patient reporting improvement in fatigue today - Anticipate update from [facility] soon regarding decision on referral - Pt continues to be resistant to attempts to safety plan or discuss alternative discharge options 12/15 - Continue current treatment plan - patient reports he is better tolerating lower dose of olanzapine but still reports daytime fatigue - Explanation provided to patient regarding request for MRI, heavy metal studies, B12, and folate - patient is persistent in his unwillingness to have these studies completed at this time - Will attempt to gather more information regarding reports of a previous MRI - Could consider cognitive assessment such as MoCA - as patient was limited in his willingness to even discuss superficial details with this provider, cognitive assessment was not attempted today - Pt went outside with staff this afternoon - continue to offer intermittently and assess the appropriateness of his presentation 12/16 - Continue current treatment plan - olanzapine 10mg qHS. Pt continues to refuse PO medications but tolerates IM injections without incident - Pt again unwilling to consider studies to rule out organic causes for the presence of delusions. Although organic cause was questioned during initial admission, it appears less likely to be the case but of course cannot be entirely ruled out without patient's willingness to participate in these studies. History obtained from patient and suggest a long history of OCD characteristics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
[2019-12-24] MEDS: TERBINAFINE CR 30 GM TUBE EXT SCH ×2 (13:58→21:24)
[2019-12-24] MEDS: MULTIVITAMIN PO SCH (13:59)
[2019-12-24] MEDS: OLANZAPINE ZYDIS 5 MG ORALLY DIS. TAB PO SCH (22:02)
[2019-12-24] MEDS: OLANZapine 10 MG/2.1 ML SDV IM PRN (22:03)
[2019-12-25] MEDS: MULTIVITAMIN PO SCH (08:56)
[2019-12-25] MEDS: TERBINAFINE CR 30 GM TUBE EXT SCH ×2 (08:56→22:07)
--- NOTE | 2019-12-25 13:25 | Psychiatric Progress Note ---
Date of Service December 25, 2019 Impression / Recommendations Impression 59-year-old male admitted involuntarily for inpatient psychiatric treatment. Primary diagnosis of delusional disorder, persecutory type. Information provided by his indicates that several years ago certain changes in his department at the [place] triggered a certain amount of distrust by the patient, which gradually grew into the elaborate, highly systematized delusional belief system that is currently in place. His delusional system was likely amplified by his tendency to obsess, focus on patterns, and look for theoretical explanations. While patient is highly attached to these delusional beliefs and is demonstrating inability/unwillingness to consider they may not be accurate - the primary safety concern surrounding his condition is the fact that he had been demonstrating highly agitated behavior which was threatening the safety of himself and his (throwing furniture at mckeon, ripping off door frames, etc). Although his behavior on the unit has been free of threats and violence, he is refusing to involve his , who reports fear for her safety given his behavior (violence directed at her prior to admission) and the fact that he has implicated her in his delusional system and believes she is conspiring within [place] government against him. Further, he is uncooperative with treatment, is refusing medication (although not resisting when given intramuscular injections of olanzapine), and declining outpatient treatment. This is a difficult and complex situation. The patient's dyscontrol behavior does not seem to be specific to his , and even were he to leave the hospital without going home to his , the behaviors described by his give reason to predict that he would quickly become a danger to himself or other people in the community. He lacks insight, and expresses a firm belief that he is on a mission to protect and save innocent people. His calmer behavior here is also within the context of his taking psychiatric medications, and he has made it a bundantly clear that he will not consider taking any psychiatric medication unless it is forced on him in the hospital. 304 extended involuntarily commitment was granted on 11/30, and [facility] as he remains a danger to himself and others and is refusing to engage in conversation regarding alternative discharge options. As time has progressed, it appears that he is not responding favorably to olanzapine. He continues to adamantly refuse any type of psychotropic medication voluntarily. At a dose of olanzapine 15 mg intramuscularly at bedtime the patient's behavior on the unit was pleasant and fairly passive (with the exception of increased irritability during meetings with psychiatric providers). However, his delusional belief system remained completely untouched as best we can tell and he began to demonstrate excessive sedation at this higher dose. Does was reduced to 10mg IM on 12/10 with reported improvement in alertness throughout the day. Organic work-up was requested by [facility]; however, patient is unwilling to participate in additional studies (anticipated ordering MRI, heavy metal studies, B12 and folate). We have received word on that the patient was accepted at [facility] - formally placed on wait list on 12/21 with estimated bed date >30 days away. He continues to be incorporating staff and psychiatric providers into his delusional system. (1) Delusional disorder: 11/14 Patient admitted on an involuntary status to the behavioral health unit for continued assessment and treatment as indicated He will be maintained on every 15 minute safety checks We will continue to expand database Consider neuroimaging for w/u of psychosis prn orders for Ativan and Haldol today. I suspect it is likely that he will require medications over objection before he permits any treatment due to what appears to be severely impaired insight. Patient will be reevaluated tomorrow for psychiatric second opinion regarding need for treatment over objection. -presently patient requires continued inpatient hospitalization for workup and treatment of psychosis which was been recently associated with some violent behavior at home. he is at risk of harm to self and others if discharged prematurely. 11/15 -File for 303 involuntary commitment. -Patient is refusing to consider medication, but has haloperidol and Ativan as needed ordered. Would recommend a trial of olanzapine, and agree with medications over objection as he has severe psychotic symptoms which are impairing his ability to function and placing both himself and others at risk of harm due to his violent behavior at home. -Patient is refused to answer questions about whether or not he has guns, so we will need to get this information from his . At this point he is refusing to sign a release for her or anyone else. -Excuse patient from groups due to the severity of his psychosis and violent behavior. Medically necessary private room room due to the same. 11/16 -303 involuntary commitment granted. -Patient continues to refuse to allow his to be involved in treatment. He is now not denying that he was aggressive at home, but is refusing to discuss it, and is focused only on the conspiracy which he says led to his behavior. -Continue to consider medications over objection. At this point, we are attempting to engage the patient in treatment volitionally, and the risk of forcing medications at this time is further alienating him. However, if he is unable to engage in any manner, we will need to reconsider medications over objection. -Patient may attend groups if able to maintain appropriate behavioral control. -Patient has still not been willing to complete admission assessments, and has not been willing to provide certain information. 11/17 -Recommend medications over objection, as the patient is unable to engage in treatment due to the severity of his psychosis and lack of insight, and remains at imminent risk of harm to others, specifically his , if his symptoms remain untreated. He is floridly delusional, now implicating hospital staff in his delusions. He is not able to work as a result of his psychosis, and his is not able to work due to having to supervise him, and is fearful of him given his escalating violence at home. He continues to refuse to allow her to be involved in treatment, is not attending groups, and is refusing to even discuss medication options. Dr. Duarte recommended medications over objection, and I agree, as the patient is unlikely to improve without antipsychotic medication. -Start olanzapine Zydis 5 mg daily, with a 5 mg IM backup for refusal. Order FLP and FG tomorrow for baseline on an atypical antipsychotic. He will also need a medical work-up of psychosis once he is more cooperative, including brain MRI. -Ongoing poor sleep, staff will limit bright lights near his room at night, and if he can be compliant with medication, can move olanzapine to bedtime to assist with sleep. Giving during the day initially to allow for adequate staff in case of need for physical hold or restraint to receive medication. 4/ - Continue olanzapine 5mg daily (offering PO Zydis with IM for refusal) - medications over objection, though patient has been cooperative with his preference for IM administration - Pt offered again PO olanzapine, with the eventual option of converting the medication to HS dosing if he continues to be cooperative - as he reports sedation after receiving the medication - Pt remains delusional and paranoid, unable to discuss examples of how we can assist him during his stay - Maintain MNPR due to level of psychosis - Fasting glucose - wnl at 90; triglycerides elevated at 188, remainder of lipid panel wnl - Continue attempts to coordinate care with patient's 11/19 -Patient is continuing to say that he does not wish for us to speak with his , and he again tells us that he will not sign a consent that will allow us to contact her. As above, his assertion is that he does not want us talking to her because she may tell us things that we will include in the record and that will eventually be used against him, either by the government or by [facility]. As a compromise, the patient says that he will ask his to call us and tell us whether she continues to feel that he is a danger to her, himself, or to anyone else. It was explained that we would also need to be able to talk to her about our concerns and we would need to coordinate aftercare arrangements with her. The patient replied to that by saying simply that he would not allow us to say anything about his care or recommended treatment to her at this time. -There seem to be some early indications that the patient may be responding to olanzapine. Today, when I told him that our concerns about his safety had not to do with his behaviors here in the hospital but, instead, about his behaviors at home (in the community) he quickly responded, "yes, but I am getting medication here!" (He almost immediately realized the implication of what he had just said, and he immediately changed the subject and began talking about how various entities were deliberately provoking him into losing his temper and acting in anger. -The patient tells us that he is using the fact that he has been given intramuscular medications against his will as evidence of our being the "dupes" or agents of the entities behind the conspiracy to silence him. He also reiterates that he believes that taking medication voluntarily is tantamount to acknowledging his need for psychiatric treatment, and he tells us that he has absolutely no psychiatric problem at all and does not need any treatment. -Today, we are increasing his olanzapine's as follows. We will begin olanzapine ODT 10 mg at bedtime starting tonight. We have also changed his order for medications over objection to olanzapine 10 mg IM daily for refusal of p.o. olanzapine. -Although the patient's presentation has many of the symptoms of a delusional disorder, persecutory typegiven the elaborate nature of the delusional system, we continue to suspect that what we are seeing is a somewhat atypical jorge, or discrete manic episodes overlaying a underlying delusional disorder. If the explanation for the patient's presentation is symptoms of a manic episode, his prognosis is better. We discussed the possibility of adding an antiobsessional medication which sometimes helps with pure delusional disorders, but the patient says that, absolutely, he will not take any medication that we offer him voluntarily. 11/22--continue Zyprexa IM hs, continues to refuse family meeting with due to paranoia, refuses 2-3 trial of PO Invega to convert to injectable. 11/23--File for 304 hearing d/t ongoing psychosis, lack of insight, refusal for outpatient treatment or ongoing medication, refusal to involve , and high risk for return to violent behavior if home w/ , whom he believes is part of the conspiracy against him. 11/24 - Continue olanzapine IM, continuing to offer patient PO medication which he is consistently refusing - Pt continues to refuse to involve in conversations regarding discharge and safety planning - 304 hearing scheduled for 11/30; pt continues to be psychotic and remains unable to engage in productive safety and discharge planing, therefore remains at high risk of harm to sefl or others if he is discharged home in his current state 11/25 - Titrating olanzapine to 10mg daily; patient continues to refuse offer for PO and is therefore continuing to receive IM injections each evening - 304 hearing 11/30; pt continues to be unwilling to participate in safety and discharge planning efforts 11/26 -The patient tells me that he received olanzapine 10 mg last evening and says that he feels that it has helped him sleep better. However, he notes that his sleep difficulty is related to the fact that his sleep schedule in the hospital is substantially different from the one that he is used to at home, with bedtime here at the hospital being 3 or 4 hours earlier than he is used to. Nevertheless, he says that he believes that he is not having any side effects from olanzapine and that, in the sense that it does help him fall asleep, it helps. Nevertheless, he also repeats today that he will not continue to take any medication, including olanzapine, if he is discharged. -I spoke with the patient's today, without disclosing any protected clinical data regarding the patient. She acknowledges that he frightens her, and, particularly recently, has caused her to fear for her personal physical safety. At the same time, she says tells me that she thinks that if she gets some advice about how best to "handle somebody who is delusional" possibly by getting into individual therapy, herself, she may be able to take him home. She also reports that should he be released (she is aware of upcoming hearing) that she will agree to take him home, because she loves him and wants to protect him, but continues to fear that he may again lose control of his behavior as a function of his delusions. -Today, the patient tells me that he recognizes that in his upcoming hearing on 11/30 (304) the issue may boil down to whether he can assure that he will be safe in the community and will not represent a risk to anyone else, even if he does not take medication. He also says that he recognizes the "Catch-22" that he is in because he realizes that the hospital is likely to say that his behavior in the hospital has been positively influenced by his taking olanzapine, and that without the structure of the hospital and without the medications, he may revert to the dangerous behaviors that precipitated the admission. -Of concern is the fact that the patient's tells us today that, effective yesterday, he has told her that he will no longer speak to her telephonically, and if he is released from the hospital on Saturday he will simply walk home, and if she is not comfortable being home with him she should leave. However, by the end of today he is allowing that he truly believes that his loves him and would not try to harm him if she had any choice, so he is at least considering contacting her again by telephone. 11/27 -Patient informed of 304 hearing and plan to [facility], as well as additional labs needed for that referral. -He continues to refuse a family meeting with his , who has expressed ongoing concern for her safety. He continues to refuse p.o. medication, outpatient treatment, and discussion of his aggression at home or plans to mitigate it. He remains at risk of harm to others, particularly his , and if discharged prematurely, as she is implicated in his delusion and he believes she has part of the conspiracy against him. -Encourage the patient to attend groups and focus on his own emotional reaction to his perception of events, healthy coping skills, and a discharge safety plan; all of which thus far he has been unwilling to do. 11/28 - 11/29 -Patient refused PPD, EKG, and chest x-ray [facility]. He is refusing to consider a trial of Invega/MERCADO, and continues to refuse a family meeting. -304 involuntary commitment hearing scheduled for 12/01/2019, and will then pursue referral [facility]. 11/30 - 304 involuntary commitment granted today, referral [facility] is reportedly supported by the [facility] at this time - Pt was again offered PPD, EKG and CXR for [facility] referral, which he again declined - Although he is not overtly refusing medication changes, he does verbalize desire to give olanzapine "another week" before switching to another agent. 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 He remains delusional and without insight, refusing medication (although getting the IM of Zyprexa daily), a family meeting, or discharge planning/outpatient care. -Recommend referral to [facility] for long-term inpatient treatment, will simultaneously referring for a BCM and working on potential diversion plans. 12/02 - Continue IM olanzapine - as continues to refuse oral medications or discussion regarding alternative agents - Most documentation sent to [facility] for referral - awaiting 303 and 304 findings to be sent and will then fax these as well - Pt continues to decline medical tests generally requested as part of [facility] referral, but cannot force these studies to be done 12/03 -We will increase his dose of IM olanzapine to 12.5 mg at bedtime. The medication thus far does not seem to have had much of a favorable impact on the patient's delusional belief system, and he is not willing to consider antiobsessional medications in the form of a selective serotonin reuptake inhib itor. However, the patient is now sleeping better and his general demeanor has been more calm, more pleasant, and more self-possessed. -The patient reports that he does not feel that he is experiencing any side effects from olanzapine, but fall short of saying that it is helping him in any way, other than perhaps for sleep. He mentions that he sometimes has a pain in his left abdominal wall and lower rib cage that he says he does not feel as a side effect from medication but, rather, the result of his doing sit ups and his bedroom by placing his feet under the mattress and exercising in that way. 12/04 - 12/05 -Zyprexa 12.5 mg IM po qhs, sedation from yesterday seems to be resolving, can likely be increased tomorrow. 12/06 - Continue Zyprexa 12.5mg IM this evening - continue attempts to engage patient in conversation regarding dose increases or consideration of alternative agents - Pt continues to be unwilling to participate in conversation regarding alternative discharge plans to state hospitalization. He continues to refuse to involve his or any other outpatient support in safety/discharge planning. - Referral to [facility] was completed and is reportedly being reviewed. 12/07 - Titrating Zyprexa 15mg IM - patient continues to refuse offer for oral medications. Pt was offered discussion about alternative agents, but declined. - Referral officially received by [facility] on 12/02/2019 (304 findings to be sent once received) - awaiting response regarding acceptance decision - Continue attempts to engage patient in discharge and safety planning - patient continues to be unwilling to discuss possible diversion plans 12/08 - 12/09 - Continue Zyprexa 15mg IM - pt continuing to refuse oral medications - Awaiting response from [facility] regarding referral - Pt remains unwilling to participate in safety planning or exploring diversion plan 12/10 -Patient is exhibiting excess sedation add Zyprexa 15 mg IM at bedtime. Specifically, the patient is observed to be hypersomnolent, has been sleeping off and on throughout the days, and indicates that he feels that at this higher dose of Zyprexa he is experiencing some cognitive slowing. At the same time, he does not seem to be responding to Zyprexa either at high doses or at low doses, other than it may be contributing to his ability to maintain self possession and avoid these sorts of dyscontroled behaviors that precipitated the current admission (for example, breaking furniture, knocking holes in the [place]ckeon of his home, and tearing out shards of woodwork and ways that frightened his ). -The patient remains delusional and harbors an elaborate persecutory delusional system that he often hits that, but is reluctant to discuss in detail much of the time because he says that he fears that information that he shares with us will fall into the wrong hands and will interfere with his ability to expose those persons who he feels are responsible for the referenced "crimes against humanity." -The patient when asked, convincingly states that he is not having any thoughts of extracting retribution from the individuals and entities that he holds responsible for his delusional construct regarding "crimes against humanity," other than to expose them by publishing proof of their crimes. Specifically, he says that he has no plan to cause physical harm to the person or property of others and says that he will leave the question of punishment to those who are lawful he entitled to impose it. -Because the patient's delusional belief seem not to be responding favorably to olanzapine at the higher dose, and because he is exhibiting some symptoms of excess sedation associated with olanzapine at 15 mg daily, his dose of olanzapine (to be given IM if necessary for refusal of p.o. olanzapine) will be reduced to olanzapine 10 mg IM at bedtime, starting tonight. 12/11 The patient is less sedated at the 10 mg of olanzapine IM he continues to refuse oral medications. Provider did again re-present the role of an SSRI that may help but he is clear and adamant about refusal of all medications. 12/12 - he is slightly less sedated at 10mg olanzapine IM each hs, but is more agitated today that he had been and more profuse with this provider about his delusional beliefs and seeing this provider and all medical care here as passive pawns of a broader conspiracy through the [employer]. He continues to decline oral medications, or any form of aftercare for monitoring of irritability and agitation maintaining that he does not have any mental illness and that all he has is "truth." Presently his risk of continuing to incorporate anyone who disagrees with his delusion into the delusion, his unwillingness to take medications after discharge, and unwillingness to participate any form of routine relationship with a behavioral health provider after discharge, and incorporation of his in his delusional system with prior physical aggression are concerning. I believe ongoing inpatient hospitalization is most appropriate setting for care at this time 12/13 - Continue olanzapine 10mg IM each evening (patient continues to refuse PO medications or discussion regarding alternative agents. - Pt continues to appear sedated, though is spending more time out of his room in the afternoons. - Anticipate decision regarding [facility] referral in the next few days 12/14 - Continue current treatment plan, patient reporting improvement in fatigue today - Anticipate update from [facility] soon regarding decision on referral - Pt continues to be resistant to attempts to safety plan or discuss alternative discharge options 12/15 - Continue current treatment plan - patient reports he is better tolerating lower dose of olanzapine but still reports daytime fatigue - Explanation provided to patient regarding request for MRI, heavy metal studies, B12, and folate - patient is persistent in his unwillingness to have these studies completed at this time - Will attempt to gather more information regarding reports of a previous MRI - Could consider cognitive assessment such as MoCA - as patient was limited in his willingness to even discuss superficial details with this provider, cognitive assessment was not attempted today - Pt went outside with staff this afternoon - continue to offer intermittently and assess the appropriateness of his presentation 12/16 - Continue current treatment plan - olanzapine 10mg qHS. Pt continues to refuse PO medications but tolerates IM injections without incident - Pt again unwilling to consider studies to rule out organic causes for the presence of delusions. Although organic cause was questioned during initial admission, it appears less likely to be the case but of course cannot be entirely ruled out without patient's willingness to participate in these studies. History obtained from patient and suggest a long history of OCD characteristics and paranoia that appear to have developed into delusional and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
[2019-12-25] MEDS: OLANZAPINE ZYDIS 5 MG ORALLY DIS. TAB PO SCH ×2 (15:45→22:45)
[2019-12-25] MEDS: OLANZapine 10 MG/2.1 ML SDV IM PRN (22:06)
[2019-12-26] MEDS: TERBINAFINE CR 30 GM TUBE EXT SCH ×2 (08:58→22:29)
[2019-12-26] MEDS: MULTIVITAMIN PO SCH (08:58)
--- NOTE | 2019-12-26 09:06 | Psychiatric Progress Note ---
Date of Service December 26, 2019 Impression / Recommendations Impression 59-year-old male admitted involuntarily for inpatient psychiatric treatment. Primary diagnosis of delusional disorder, persecutory type. Information provided by his indicates that several years ago certain changes in his department at the [facility] triggered a certain amount of distrust by the patient, which gradually grew into the elaborate, highly systematized delusional belief system that is currently in place. His delusional system was likely amplified by his tendency to obsess, focus on patterns, and look for theoretical explanations. While patient is highly attached to these delusional beliefs and is demonstrating inability/unwillingness to consider they may not be accurate - the primary safety concern surrounding his condition is the fact that he had been demonstrating highly agitated behavior which was threatening the safety of himself and his (throwing furniture at mckeon, ripping off door frames, etc). Although his behavior on the unit has been free of threats and violence, he is refusing to involve his , who reports fear for her safety given his behavior (violence directed at her prior to admission) and the fact that he has implicated her in his delusional system and believes she is conspiring within [place] government against him. Further, he is uncooperative with treatment, is refusing medication (although not resisting when given intramuscular injections of olanzapine), and declining outpatient treatment. This is a difficult and complex situation. The patient's dyscontrol behavior does not seem to be specific to his , and even were he to leave the hospital without going home to his , the behaviors described by his give reason to predict that he would quickly become a danger to himself or other people in the community. He lacks insight, and expresses a firm belief that he is on a mission to protect and save innocent people. His calmer behavior here is also within the context of his taking psychiatric medications, and he has made it a bundantly clear that he will not consider taking any psychiatric medication unless it is forced on him in the hospital. 304 extended involuntarily commitment was granted on 11/30, and referral to the [facility] has been sent as he remains a danger to himself and others and is refusing to engage in conversation regarding alternative discharge options. As time has progressed, it appears that he is not responding favorably to olanzapine. He continues to adamantly refuse any type of psychotropic medication voluntarily. At a dose of olanzapine 15 mg intramuscularly at bedtime the patient's behavior on the unit was pleasant and fairly passive (with the exception of increased irritability during meetings with psychiatric providers). However, his delusional belief system remained completely untouched as best we can tell and he began to demonstrate excessive sedation at this higher dose. Does was reduced to 10mg IM on 12/10 with reported improvement in alertness throughout the day. Organic work-up was requested by [facility]; however, patient is unwilling to participate in additional studies (anticipated ordering MRI, heavy metal studies, B12 and folate). We have received word on that the patient was accepted at [facility] - formally placed on wait list on 12/21 with estimated bed date >30 days away. He continues to be incorporating staff and psychiatric providers into his delusional system. (1) Delusional disorder: 11/14 Patient admitted on an involuntary status to the behavioral health unit for continued assessment and treatment as indicated He will be maintained on every 15 minute safety checks We will continue to expand database Consider neuroimaging for w/u of psychosis prn orders for Ativan and Haldol today. I suspect it is likely that he will require medications over objection before he permits any treatment due to what appears to be severely impaired insight. Patient will be reevaluated tomorrow for psychiatric second opinion regarding need for treatment over objection. -presently patient requires continued inpatient hospitalization for workup and treatment of psychosis which was been recently associated with some violent behavior at home. he is at risk of harm to self and others if discharged prematurely. 11/15 -File for 303 involuntary commitment. -Patient is refusing to consider medication, but has haloperidol and Ativan as needed ordered. Would recommend a trial of olanzapine, and agree with medications over objection as he has severe psychotic symptoms which are impairing his ability to function and placing both himself and others at risk of harm due to his violent behavior at home. -Patient is refused to answer questions about whether or not he has guns, so we will need to get this information from his . At this point he is refusing to sign a release for her or anyone else. -Excuse patient from groups due to the severity of his psychosis and violent behavior. Medically necessary private room room due to the same. 11/16 -303 involuntary commitment granted. -Patient continues to refuse to allow his to be involved in treatment. He is now not denying that he was aggressive at home, but is refusing to discuss it, and is focused only on the conspiracy which he says led to his behavior. -Continue to consider medications over objection. At this point, we are attempting to engage the patient in treatment volitionally, and the risk of forcing medications at this time is further alienating him. However, if he is unable to engage in any manner, we will need to reconsider medications over objection. -Patient may attend groups if able to maintain appropriate behavioral control. -Patient has still not been willing to complete admission assessments, and has not been willing to provide certain information. 11/17 -Recommend medications over objection, as the patient is unable to engage in treatment due to the severity of his psychosis and lack of insight, and remains at imminent risk of harm to others, specifically his , if his symptoms remain untreated. He is floridly delusional, now implicating hospital staff in his delusions. He is not able to work as a result of his psychosis, and his is not able to work due to having to supervise him, and is fearful of him given his escalating violence at home. He continues to refuse to allow her to be involved in treatment, is not attending groups, and is refusing to even discuss medication options. Dr. Duarte recommended medications over objection, and I agree, as the patient is unlikely to improve without antipsychotic medication. -Start olanzapine Zydis 5 mg daily, with a 5 mg IM backup for refusal. Order FLP and FG tomorrow for baseline on an atypical antipsychotic. He will also need a medical work-up of psychosis once he is more cooperative, including brain MRI. -Ongoing poor sleep, staff will limit bright lights near his room at night, and if he can be compliant with medication, can move olanzapine to bedtime to assist with sleep. Giving during the day initially to allow for adequate staff in case of need for physical hold or restraint to receive medication. 4/ - Continue olanzapine 5mg daily (offering PO Zydis with IM for refusal) - medications over objection, though patient has been cooperative with his preference for IM administration - Pt offered again PO olanzapine, with the eventual option of converting the medication to HS dosing if he continues to be cooperative - as he reports sedation after receiving the medication - Pt remains delusional and paranoid, unable to discuss examples of how we can assist him during his stay - Maintain MNPR due to level of psychosis - Fasting glucose - wnl at 90; triglycerides elevated at 188, remainder of lipid panel wnl - Continue attempts to coordinate care with patient's 11/19 -Patient is continuing to say that he does not wish for us to speak with his , and he again tells us that he will not sign a consent that will allow us to contact her. As above, his assertion is that he does not want us talking to her because she may tell us things that we will include in the record and that will eventually be used against him, either by the government or by [facility]. As a compromise, the patient says that he will ask his to call us and tell us whether she continues to feel that he is a danger to her, himself, or to anyone else. It was explained that we would also need to be able to talk to her about our concerns and we would need to coordinate aftercare arrangements with her. The patient replied to that by saying simply that he would not allow us to say anything about his care or recommended treatment to her at this time. -There seem to be some early indications that the patient may be responding to olanzapine. Today, when I told him that our concerns about his safety had not to do with his behaviors here in the hospital but, instead, about his behaviors at home (in the community) he quickly responded, "yes, but I am getting medication here!" (He almost immediately realized the implication of what he had just said, and he immediately changed the subject and began talking about how various entities were deliberately provoking him into losing his temper and acting in anger. -The patient tells us that he is using the fact that he has been given intramuscular medications against his will as evidence of our being the "dupes" or agents of the entities behind the conspiracy to silence him. He also reiterates that he believes that taking medication voluntarily is tantamount to acknowledging his need for psychiatric treatment, and he tells us that he has absolutely no psychiatric problem at all and does not need any treatment. -Today, we are increasing his olanzapine's as follows. We will begin olanzapine ODT 10 mg at bedtime starting tonight. We have also changed his order for medications over objection to olanzapine 10 mg IM daily for refusal of p.o. olanzapine. -Although the patient's presentation has many of the symptoms of a delusional disorder, persecutory typegiven the elaborate nature of the delusional system, we continue to suspect that what we are seeing is a somewhat atypical jorge, or discrete manic episodes overlaying a underlying delusional disorder. If the explanation for the patient's presentation is symptoms of a manic episode, his prognosis is better. We discussed the possibility of adding an antiobsessional medication which sometimes helps with pure delusional disorders, but the patient says that, absolutely, he will not take any medication that we offer him voluntarily. 11/22--continue Zyprexa IM hs, continues to refuse family meeting with due to paranoia, refuses 2-3 trial of PO Invega to convert to injectable. 11/23--File for 304 hearing d/t ongoing psychosis, lack of insight, refusal for outpatient treatment or ongoing medication, refusal to involve , and high risk for return to violent behavior if home w/ , whom he believes is part of the conspiracy against him. 11/24 - Continue olanzapine IM, continuing to offer patient PO medication which he is consistently refusing - Pt continues to refuse to involve in conversations regarding discharge and safety planning - 304 hearing scheduled for 11/30; pt continues to be psychotic and remains unable to engage in productive safety and discharge planing, therefore remains at high risk of harm to sefl or others if he is discharged home in his current state 11/25 - Titrating olanzapine to 10mg daily; patient continues to refuse offer for PO and is therefore continuing to receive IM injections each evening - 304 hearing 11/30; pt continues to be unwilling to participate in safety and discharge planning efforts 11/26 -The patient tells me that he received olanzapine 10 mg last evening and says that he feels that it has helped him sleep better. However, he notes that his sleep difficulty is related to the fact that his sleep schedule in the hospital is substantially different from the one that he is used to at home, with bedtime here at the hospital being 3 or 4 hours earlier than he is used to. Nevertheless, he says that he believes that he is not having any side effects from olanzapine and that, in the sense that it does help him fall asleep, it helps. Nevertheless, he also repeats today that he will not continue to take any medication, including olanzapine, if he is discharged. -I spoke with the patient's today, without disclosing any protected clinical data regarding the patient. She acknowledges that he frightens her, and, particularly recently, has caused her to fear for her personal physical safety. At the same time, she says tells me that she thinks that if she gets some advice about how best to "handle somebody who is delusional" possibly by getting into individual therapy, herself, she may be able to take him home. She also reports that should he be released (she is aware of upcoming hearing) that she will agree to take him home, because she loves him and wants to protect him, but continues to fear that he may again lose control of his behavior as a function of his delusions. -Today, the patient tells me that he recognizes that in his upcoming hearing on 11/30 (304) the issue may boil down to whether he can assure that he will be safe in the community and will not represent a risk to anyone else, even if he does not take medication. He also says that he recognizes the "Catch-22" that he is in because he realizes that the hospital is likely to say that his behavior in the hospital has been positively influenced by his taking olanzapine, and that without the structure of the hospital and without the medications, he may revert to the dangerous behaviors that precipitated the admission. -Of concern is the fact that the patient's tells us today that, effective yesterday, he has told her that he will no longer speak to her telephonically, and if he is released from the hospital on Saturday he will simply walk home, and if she is not comfortable being home with him she should leave. However, by the end of today he is allowing that he truly believes that his loves him and would not try to harm him if she had any choice, so he is at least considering contacting her again by telephone. 11/27 -Patient informed of 304 hearing and plan to refer to the [facility], as well as additional labs needed for that referral. -He continues to refuse a family meeting with his , who has expressed ongoing concern for her safety. He continues to refuse p.o. medication, outpatient treatment, and discussion of his aggression at home or plans to mitigate it. He remains at risk of harm to others, particularly his , and if discharged prematurely, as she is implicated in his delusion and he believes she has part of the conspiracy against him. -Encourage the patient to attend groups and focus on his own emotional reaction to his perception of events, healthy coping skills, and a discharge safety plan; all of which thus far he has been unwilling to do. 11/28 - 11/29 -Patient refused PPD, EKG, and chest x-ray for [facility] referral. He is refusing to consider a trial of Invega/MERCADO, and continues to refuse a family meeting. -304 involuntary commitment hearing scheduled for 12/01/2019, and will then pursue referral to the [facility]. 11/30 - 304 involuntary commitment granted today, referral to the [facility] is reportedly supported by the [facility] at this time - Pt was again offered PPD, EKG and CXR for [facility] referral, which he again declined - Although he is not overtly refusing medication changes, he does verbalize desire to give olanzapine "another week" before switching to another agent. 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 He remains delusional and without insight, refusing medication (although getting the IM of Zyprexa daily), a family meeting, or discharge planning/outpatient care. -Recommend referral to [facility] for long-term inpatient treatment, will simultaneously referring for a BCM and working on potential diversion plans. 12/02 - Continue IM olanzapine - as continues to refuse oral medications or discussion regarding alternative agents - Most documentation sent to [facility] for referral - awaiting 303 and 304 findings to be sent and will then fax these as well - Pt continues to decline medical tests generally requested as part of [facility] referral, but cannot force these studies to be done 12/03 -We will increase his dose of IM olanzapine to 12.5 mg at bedtime. The medication thus far does not seem to have had much of a favorable impact on the patient's delusional belief system, and he is not willing to consider antiobsessional medications in the form of a selective serotonin reuptake inhib itor. However, the patient is now sleeping better and his general demeanor has been more calm, more pleasant, and more self-possessed. -The patient reports that he does not feel that he is experiencing any side effects from olanzapine, but fall short of saying that it is helping him in any way, other than perhaps for sleep. He mentions that he sometimes has a pain in his left abdominal wall and lower rib cage that he says he does not feel as a side effect from medication but, rather, the result of his doing sit ups and his bedroom by placing his feet under the mattress and exercising in that way. 12/04 - 12/05 -Zyprexa 12.5 mg IM po qhs, sedation from yesterday seems to be resolving, can likely be increased tomorrow. 12/06 - Continue Zyprexa 12.5mg IM this evening - continue attempts to engage patient in conversation regarding dose increases or consideration of alternative agents - Pt continues to be unwilling to participate in conversation regarding alternative discharge plans to state hospitalization. He continues to refuse to involve his or any other outpatient support in safety/discharge planning. - Referral to [facility] was completed and is reportedly being reviewed. 12/07 - Titrating Zyprexa 15mg IM - patient continues to refuse offer for oral medications. Pt was offered discussion about alternative agents, but declined. - Referral officially received by [facility] on 12/02/2019 (304 findings to be sent once received) - awaiting response regarding acceptance decision - Continue attempts to engage patient in discharge and safety planning - patient continues to be unwilling to discuss possible diversion plans 12/08 - 12/09 - Continue Zyprexa 15mg IM - pt continuing to refuse oral medications - Awaiting response from [facility] regarding referral - Pt remains unwilling to participate in safety planning or exploring diversion plan 12/10 -Patient is exhibiting excess sedation add Zyprexa 15 mg IM at bedtime. Specifically, the patient is observed to be hypersomnolent, has been sleeping off and on throughout the days, and indicates that he feels that at this higher dose of Zyprexa he is experiencing some cognitive slowing. At the same time, he does not seem to be responding to Zyprexa either at high doses or at low doses, other than it may be contributing to his ability to maintain self possession and avoid these sorts of dyscontroled behaviors that precipitated the current admission (for example, breaking furniture, knocking holes in the mckeon of his home, and tearing out shards of woodwork and ways that frightened his ). -The patient remains delusional and harbors an elaborate persecutory delusional system that he often hits that, but is reluctant to discuss in detail much of the time because he says that he fears that information that he shares with us will fall into the wrong hands and will interfere with his ability to expose those persons who he feels are responsible for the referenced "crimes against humanity." -The patient when asked, convincingly states that he is not having any thoughts of extracting retribution from the individuals and entities that he holds responsible for his delusional construct regarding "crimes against humanity," other than to expose them by publishing proof of their crimes. Specifically, he says that he has no plan to cause physical harm to the person or property of others and says that he will leave the question of punishment to those who are lawful he entitled to impose it. -Because the patient's delusional belief seem not to be responding favorably to olanzapine at the higher dose, and because he is exhibiting some symptoms of excess sedation associated with olanzapine at 15 mg daily, his dose of olanzapine (to be given IM if necessary for refusal of p.o. olanzapine) will be reduced to olanzapine 10 mg IM at bedtime, starting tonight. 12/11 The patient is less sedated at the 10 mg of olanzapine IM he continues to refuse oral medications. Provider did again re-present the role of an SSRI that may help but he is clear and adamant about refusal of all medications. 12/12 - he is slightly less sedated at 10mg olanzapine IM each hs, but is more agitated today that he had been and more profuse with this provider about his delusional beliefs and seeing this provider and all medical care here as passive pawns of a broader conspiracy through the [employer]. He continues to decline oral medications, or any form of aftercare for monitoring of irritability and agitation maintaining that he does not have any mental illness and that all he has is "truth." Presently his risk of continuing to incorporate anyone who disagrees with his delusion into the delusion, his unwillingness to take medications after discharge, and unwillingness to participate any form of routine relationship with a behavioral health provider after discharge, and incorporation of his in his delusional system with prior physical aggression are concerning. I believe ongoing inpatient hospitalization is most appropriate setting for care at this time 12/13 - Continue olanzapine 10mg IM each evening (patient continues to refuse PO medications or discussion regarding alternative agents. - Pt continues to appear sedated, though is spending more time out of his room in the afternoons. - Anticipate decision regarding [facility] referral in the next few days 12/14 - Continue current treatment plan, patient reporting improvement in fatigue today - Anticipate update from [facility] soon regarding decision on referral - Pt continues to be resistant to attempts to safety plan or discuss alternative discharge options 12/15 - Continue current treatment plan - patient reports he is better tolerating lower dose of olanzapine but still reports daytime fatigue - Explanation provided to patient regarding request for MRI, heavy metal studies, B12, and folate - patient is persistent in his unwillingness to have these studies completed at this time - Will attempt to gather more information regarding reports of a previous MRI - Could consider cognitive assessment such as MoCA - as patient was limited in his willingness to even discuss superficial details with this provider, cognitive assessment was not attempted today - Pt went outside with staff this afternoon - continue to offer intermittently and assess the appropriateness of his presentation 12/16 - Continue current treatment plan - olanzapine 10mg qHS. Pt continues to refuse PO medications but tolerates IM injections without incident - Pt again unwilling to consider studies to rule out organic causes for the presence of delusions. Although organic cause was questioned during initial admission, it appears less likely to be the case but of course cannot be entirely ruled out without patient's willingness to participate in these studies. History obtained from patient and suggest a long history of OCD characteristics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
[2019-12-26] MEDS: OLANZapine 10 MG/2.1 ML SDV IM PRN (22:08)
[2019-12-26] MEDS: OLANZAPINE ZYDIS 5 MG ORALLY DIS. TAB PO SCH (22:30)
[2019-12-27] MEDS: TERBINAFINE CR 30 GM TUBE EXT SCH ×2 (09:07→22:21)
[2019-12-27] MEDS: MULTIVITAMIN PO SCH (09:07)
--- NOTE | 2019-12-27 09:38 | Psychiatric Progress Note ---
Date of Service December 27, 2019 Impression / Recommendations Impression 59-year-old male admitted involuntarily for inpatient psychiatric treatment. Primary diagnosis of delusional disorder, persecutory type. Information provided by his indicates that several years ago certain changes in his department at the [facility] triggered a certain amount of distrust by the patient, which gradually grew into the elaborate, highly systematized delusional belief system that is currently in place. His delusional system was likely amplified by his tendency to obsess, focus on patterns, and look for theoretical explanations. While patient is highly attached to these delusional beliefs and is demonstrating inability/unwillingness to consider they may not be accurate - the primary safety concern surrounding his condition is the fact that he had been demonstrating highly agitated behavior which was threatening the safety of himself and his (throwing furniture at mckeon, ripping off door frames, etc). Although his behavior on the unit has been free of threats and violence, he is refusing to involve his , who reports fear for her safety given his behavior (violence directed at her prior to admission) and the fact that he has implicated her in his delusional system and believes she is conspiring within [place] government against him. Further, he is uncooperative with treatment, is refusing medication (although not resisting when given intramuscular injections of olanzapine), and declining outpatient treatment. This is a difficult and complex situation. The patient's dyscontrol behavior does not seem to be specific to his , and even were he to leave the hospital without going home to his , the behaviors described by his give reason to predict that he would quickly become a danger to himself or other people in the community. He lacks insight, and expresses a firm belief that he is on a mission to protect and save innocent people. His calmer behavior here is also within the context of his taking psychiatric medications, and he has made it abundantly clear that he will not consider taking any psychiatric medication unless it is forced on him in the hospital. 304 extended involuntarily commitment was granted on 11/30, and referral to the [facility] has been sent as he remains a danger to himself and others and is refusing to engage in conversation regarding alternative discharge options. As time has progressed, it appears that he is not responding favorably to olanzapine. He continues to adamantly refuse any type of psychotropic medication voluntarily. At a dose of olanzapine 15 mg intramuscularly at bedtime the patient's behavior on the unit was pleasant and fairly passive (with the exception of increased irritability during meetings with psychiatric providers). However, his delusional belief system remained completely untouched as best we can tell and he began to demonstrate excessive sedation at this higher dose. Does was reduced to 10mg IM on 12/10 with reported improvement in alertness throughout the day. Organic work-up was requested by [facility]; however, patient is unwilling to participate in additional studies (anticipated ordering MRI, heavy metal studies, B12 and folate). We have received word on that the patient was accepted at [facility] - formally placed on wait list on 12/21 with estimated bed date >30 days away. He continues to be incorporating staff a in psychiatric providers into his delusional system. (1) Delusional disorder: 11/14 Patient admitted on an involuntary status to the behavioral health unit for continued assessment and treatment as indicated He will be maintained on every 15 minute safety checks We will continue to expand database Consider neuroimaging for w/u of psychosis prn orders for Ativan and Haldol today. I suspect it is likely that he will require medications over objection before he permits any treatment due to what appears to be severely impaired insight. Patient will be reevaluated tomorrow for psychiatric second opinion regarding need for treatment over objection. -presently patient requires continued inpatient hospitalization for workup and treatment of psychosis which was been recently associated with some violent behavior at home. he is at risk of harm to self and others if discharged prematurely. 11/15 -File for 303 involuntary commitment. -Patient is refusing to consider medication, but has haloperidol and Ativan as needed ordered. Would recommend a trial of olanzapine, and agree with medications over objection as he has severe psychotic symptoms which are impairing his ability to function and placing both himself and others at risk of harm due to his violent behavior at home. -Patient is refused to answer questions about whether or not he has guns, so we will need to get this information from his . At this point he is refusing to sign a release for her or anyone else. -Excuse patient from groups due to the severity of his psychosis and violent behavior. Medically necessary private room room due to the same. 11/16 -303 involuntary commitment granted. -Patient continues to refuse to allow his to be involved in treatment. He is now not denying that he was aggressive at home, but is refusing to discuss it, and is focused only on the conspiracy which he says led to his behavior. -Continue to consider medications over objection. At this point, we are attempting to engage the patient in treatment volitionally, and the risk of forcing medications at this time is further alienating him. However, if he is unable to engage in any manner, we will need to reconsider medications over objection. -Patient may attend groups if able to maintain appropriate behavioral control. -Patient has still not been willing to complete admission assessments, and has not been willing to provide certain information. 11/17 -Recommend medications over objection, as the patient is unable to engage in treatment due to the severity of his psychosis and lack of insight, and remains at imminent risk of harm to others, specifically his , if his symptoms remain untreated. He is floridly delusional, now implicating hospital staff in his delusions. He is not able to work as a result of his psychosis, and his is not able to work due to having to supervise him, and is fearful of him given his escalating violence at home. He continues to refuse to allow her to be involved in treatment, is not attending groups, and is refusing to even discuss medication options. Dr. Duarte recommended medications over objection, and I agree, as the patient is unlikely to improve without antipsychotic medication. -Start olanzapine Zydis 5 mg daily, with a 5 mg IM backup for refusal. Order FLP and FG tomorrow for baseline on an atypical antipsychotic. He will also need a medical work-up of psychosis once he is more cooperative, including brain MRI. -Ongoing poor sleep, staff will limit bright lights near his room at night, and if he can be compliant with medication, can move olanzapine to bedtime to assist with sleep. Giving during the day initially to allow for adequate staff in case of need for physical hold or restraint to receive medication. 4/ - Continue olanzapine 5mg daily (offering PO Zydis with IM for refusal) - medications over objection, though patient has been cooperative with his preference for IM administration - Pt offered again PO olanzapine, with the eventual option of converting the medication to HS dosing if he continues to be cooperative - as he reports sedation after receiving the medication - Pt remains delusional and paranoid, unable to discuss examples of how we can assist him during his stay - Maintain MNPR due to level of psychosis - Fasting glucose - wnl at 90; triglycerides elevated at 188, remainder of lipid panel wnl - Continue attempts to coordinate care with patient's 11/19 -Patient is continuing to say that he does not wish for us to speak with his , and he again tells us that he will not sign a consent that will allow us to contact her. As above, his assertion is that he does not want us talking to her because she may tell us things that we will include in the record and that will eventually be used against him, either by the government or by [facility]. As a compromise, the patient says that he will ask his to call us and tell us whether she continues to feel that he is a danger to her, himself, or to anyone else. It was explained that we would also need to be able to talk to her about our concerns and we would need to coordinate aftercare arrangements with her. The patient replied to that by saying simply that he would not allow us to say anything about his care or recommended treatment to her at this time. -There seem to be some early indications that the patient may be responding to olanzapine. Today, when I told him that our concerns about his safety had not to do with his behaviors here in the hospital but, instead, about his behaviors at home (in the community) he quickly responded, "yes, but I am getting medication here!" (He almost immediately realized the implication of what he had just said, and he immediately changed the subject and began talking about how various entities were deliberately provoking him into losing his temper and acting in anger. -The patient tells us that he is using the fact that he has been given intramuscular medications against his will as evidence of our being the "dupes" or agents of the entities behind the conspiracy to silence him. He also reiterates that he believes that taking medication voluntarily is tantamount to acknowledging his need for psychiatric treatment, and he tells us that he has absolutely no psychiatric problem at all and does not need any treatment. -Today, we are increasing his olanzapine's as follows. We will begin olanzapine ODT 10 mg at bedtime starting tonight. We have also changed his order for medications over objection to olanzapine 10 mg IM daily for refusal of p.o. olanzapine. -Although the patient's presentation has many of the symptoms of a delusional disorder, persecutory typegiven the elaborate nature of the delusional system, we continue to suspect that what we are seeing is a somewhat atypical jorge, or discrete manic episodes overlaying a underlying delusional disorder. If the explanation for the patient's presentation is symptoms of a manic episode, his prognosis is better. We discussed the possibility of adding an antiobsessional medication which sometimes helps with pure delusional disorders, but the patient says that, absolutely, he will not take any medication that we offer him voluntarily. 11/22--continue Zyprexa IM hs, continues to refuse family meeting with due to paranoia, refuses 2-3 trial of PO Invega to convert to injectable. 11/23--File for 304 hearing d/t ongoing psychosis, lack of insight, refusal for outpatient treatment or ongoing medication, refusal to involve , and high risk for return to violent behavior if home w/ , whom he believes is part of the conspiracy against him. 11/24 - Continue olanzapine IM, continuing to offer patient PO medication which he is consistently refusing - Pt continues to refuse to involve in conversations regarding discharge and safety planning - 304 hearing scheduled for 11/30; pt continues to be psychotic and remains unable to engage in productive safety and discharge planing, therefore remains at high risk of harm to sefl or others if he is discharged home in his current state 11/25 - Titrating olanzapine to 10mg daily; patient continues to refuse offer for PO and is therefore continuing to receive IM injections each evening - 304 hearing 11/30; pt continues to be unwilling to participate in safety and discharge planning efforts 11/26 -The patient tells me that he received olanzapine 10 mg last evening and says that he feels that it has helped him sleep better. However, he notes that his sleep difficulty is related to the fact that his sleep schedule in the hospital is substantially different from the one that he is used to at home, with bedtime here at the hospital being 3 or 4 hours earlier than he is used to. Nevertheless, he says that he believes that he is not having any side effects from olanzapine and that, in the sense that it does help him fall asleep, it helps. Nevertheless, he also repeats today that he will not continue to take any medication, including olanzapine, if he is discharged. -I spoke with the patient's today, without disclosing any protected clinical data regarding the patient. She acknowledges that he frightens her, and, particularly recently, has caused her to fear for her personal physical safety. At the same time, she says tells me that she thinks that if she gets some advice about how best to "handle somebody who is delusional" possibly by getting into individual therapy, herself, she may be able to take him home. She also reports that should he be released (she is aware of upcoming hearing) that she will agree to take him home, because she loves him and wants to protect him, but continues to fear that he may again lose control of his behavior as a function of his delusions. -Today, the patient tells me that he recognizes that in his upcoming hearing on 11/30 (304) the issue may boil down to whether he can assure that he will be safe in the community and will not represent a risk to anyone else, even if he does not take medication. He also says that he recognizes the "Catch-22" that he is in because he realizes that the hospital is likely to say that his behavior in the hospital has been positively influenced by his taking olanzapine, and that without the structure of the hospital and without the medications, he may revert to the dangerous behaviors that precipitated the admission. -Of concern is the fact that the patient's tells us today that, effective yesterday, he has told her that he will no longer speak to her telephonically, and if he is released from the hospital on Saturday he will simply walk home, and if she is not comfortable being home with him she should leave. However, by the end of today he is allowing that he truly believes that his loves him and would not try to harm him if she had any choice, so he is at least considering contacting her again by telephone. 11/27 -Patient informed of 304 hearing and plan to refer to the [facility], as well as additional labs needed for that referral. -He continues to refuse a family meeting with his , who has expressed ongoing concern for her safety. He continues to refuse p.o. medication, outpatient treatment, and discussion of his aggression at home or plans to mitigate it. He remains at risk of harm to others, particularly his , and if discharged prematurely, as she is implicated in his delusion and he believes she has part of the conspiracy against him. -Encourage the patient to attend groups and focus on his own emotional reaction to his perception of events, healthy coping skills, and a discharge safety plan; all of which thus far he has been unwilling to do. 11/28 - 11/29 -Patient refused PPD, EKG, and chest x-ray for [facility] referral. He is refusing to consider a trial of Invega/MERCADO, and continues to refuse a family meeting. -304 involuntary commitment hearing scheduled for 12/01/2019, and will then pursue referral to the [facility]. 11/30 - 304 involuntary commitment granted today, referral to the [facility] is reportedly supported by the critical [facility] hospital at this time - Pt was again offered PPD, EKG and CXR for [facility] referral, which he again declined - Although he is not overtly refusing medication changes, he does verbalize desire to give olanzapine "another week" before switching to another agent. 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 He remains delusional and without insight, refusing medication (although getting the IM of Zyprexa daily), a family meeting, or discharge planning/outpatient care. -Recommend referral to [facility] for long-term inpatient treatment, will simultaneously referring for a BCM and working on potential diversion plans. 12/02 - Continue IM olanzapine - as continues to refuse oral medications or discussion regarding alternative agents - Most documentation sent to [facility] for referral - awaiting 303 and 304 findings to be sent and will then fax these as well - Pt continues to decline medical tests generally requested as part of [facility] referral, but cannot force these studies to be done 12/03 -We will increase his dose of IM olanzapine to 12.5 mg at bedtime. The medication thus far does not seem to have had much of a favorable impact on the patient's delusional belief system, and he is not willing to consider antiobsessional medications in the form of a selective serotonin reuptake inhi bitor. However, the patient is now sleeping better and his general demeanor has been more calm, more pleasant, and more self-possessed. -The patient reports that he does not feel that he is experiencing any side effects from olanzapine, but fall short of saying that it is helping him in any way, other than perhaps for sleep. He mentions that he sometimes has a pain in his left abdominal wall and lower rib cage that he says he does not feel as a side effect from medication but, rather, the result of his doing sit ups and his bedroom by placing his feet under the mattress and exercising in that way. 12/04 - 12/05 -Zyprexa 12.5 mg IM po qhs, sedation from yesterday seems to be resolving, can likely be increased tomorrow. 12/06 - Continue Zyprexa 12.5mg IM this evening - continue attempts to engage patient in conversation regarding dose increases or consideration of alternative agents - Pt continues to be unwilling to participate in conversation regarding alternative discharge plans to [facility] hospitalization. He continues to refuse to involve his or any other outpatient support in safety/discharge planning. - Referral to [facility] was completed and is reportedly being reviewed. 12/07 - Titrating Zyprexa 15mg IM - patient continues to refuse offer for oral medications. Pt was offered discussion about alternative agents, but declined. - Referral officially received by [facility] on 12/02/2019 (304 findings to be sent once received) - awaiting response regarding acceptance decision - Continue attempts to engage patient in discharge and safety planning - patient continues to be unwilling to discuss possible diversion plans 12/08 - 12/09 - Continue Zyprexa 15mg IM - pt continuing to refuse oral medications - Awaiting response from [facility] regarding referral - Pt remains unwilling to participate in safety planning or exploring diversion plan 12/10 -Patient is exhibiting excess sedation add Zyprexa 15 mg IM at bedtime. Specifically, the patient is observed to be hypersomnolent, has been sleeping off and on throughout the days, and indicates that he feels that at this higher dose of Zyprexa he is experiencing some cognitive slowing. At the same time, he does not seem to be responding to Zyprexa either at high doses or at low doses, other than it may be contributing to his ability to maintain self possession and avoid these sorts of dyscontroled behaviors that precipitated the current admission (for example, breaking furniture, knocking holes in the mckeon of his home, and tearing out shards of woodwork and ways that frightened his ). -The patient remains delusional and harbors an elaborate persecutory delusional system that he often hits that, but is reluctant to discuss in detail much of the time because he says that he fears that information that he shares with us will fall into the wrong hands and will interfere with his ability to expose those persons who he feels are responsible for the referenced "crimes against humanity." -The patient when asked, convincingly states that he is not having any thoughts of extracting retribution from the individuals and entities that he holds responsible for his delusional construct regarding "crimes against humanity," other than to expose them by publishing proof of their crimes. Specifically, he says that he has no plan to cause physical harm to the person or property of others and says that he will leave the question of punishment to those who are lawful he entitled to impose it. -Because the patient's delusional belief seem not to be responding favorably to olanzapine at the higher dose, and because he is exhibiting some symptoms of excess sedation associated with olanzapine at 15 mg daily, his dose of olanzapine (to be given IM if necessary for refusal of p.o. olanzapine) will be reduced to olanzapine 10 mg IM at bedtime, starting tonight. 12/11 The patient is less sedated at the 10 mg of olanzapine IM he continues to refuse oral medications. Provider did again re-present the role of an SSRI that may help but he is clear and adamant about refusal of all medications. 12/12 - he is slightly less sedated at 10mg olanzapine IM each hs, but is more agitated today that he had been and more profuse with this provider about his delusional beliefs and seeing this provider and all medical care here as passive pawns of a broader conspiracy through the [employer]. He continues to decline oral medications, or any form of aftercare for monitoring of irritability and agitation maintaining that he does not have any mental illness and that all he has is "truth." Presently his risk of continuing to incorporate anyone who disagrees with his delusion into the delusion, his unwillingness to take medications after discharge, and unwillingness to participate any form of routine relationship with a behavioral health provider after discharge, and incorporation of his in his delusional system with prior physical aggression are concerning. I believe ongoing inpatient hospitalization is most appropriate setting for care at this time 12/13 - Continue olanzapine 10mg IM each evening (patient continues to refuse PO medications or discussion regarding alternative agents. - Pt continues to appear sedated, though is spending more time out of his room in the afternoons. - Anticipate decision regarding [facility] referral in the next few days 12/14 - Continue current treatment plan, patient reporting improvement in fatigue today - Anticipate update from [facility] soon regarding decision on referral - Pt continues to be resistant to attempts to safety plan or discuss alternative discharge options 12/15 - Continue current treatment plan - patient reports he is better tolerating lower dose of olanzapine but still reports daytime fatigue - Explanation provided to patient regarding request for MRI, heavy metal studies, B12, and folate - patient is persistent in his unwillingness to have these studies completed at this time - Will attempt to gather more information regarding reports of a previous MRI - Could consider cognitive assessment such as MoCA - as patient was limited in his willingness to even discuss superficial details with this provider, cognitive assessment was not attempted today - Pt went outside with staff this afternoon - continue to offer intermittently and assess the appropriateness of his presentation 12/16 - Continue current treatment plan - olanzapine 10mg qHS. Pt continues to refuse PO medications but tolerates IM injections without incident - Pt again unwilling to consider studies to rule out organic causes for the presence of delusions. Although organic cause was questioned during initial admission, it appears less likely to be the case but of course cannot be entirely ruled out without patient's willingness to participate in these studies. History obtained from patient and suggest a long history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
[2019-12-27] MEDS: OLANZapine 10 MG/2.1 ML SDV IM PRN (22:11)
[2019-12-27] MEDS: OLANZAPINE ZYDIS 5 MG ORALLY DIS. TAB PO SCH (22:21)
[2019-12-28] MEDS: TERBINAFINE CR 30 GM TUBE EXT SCH ×2 (08:19→22:04)
[2019-12-28] MEDS: MULTIVITAMIN PO SCH (08:20)
--- NOTE | 2019-12-28 09:26 | Psychiatric Progress Note ---
Date of Service December 28, 2019 Impression / Recommendations Impression 59-year-old male admitted involuntarily for inpatient psychiatric treatment. Primary diagnosis of delusional disorder, persecutory type. Information provided by his indicates that several years ago certain changes in his department at the [facility] triggered a certain amount of distrust by the patient, which gradually grew into the elaborate, highly systematized delusional belief system that is currently in place. His delusional system was likely amplified by his tendency to obsess, focus on patterns, and look for theoretical explanations. While patient is highly attached to these delusional beliefs and is demonstrating inability/unwillingness to consider they may not be accurate - the primary safety concern surrounding his condition is the fact that he had been demonstrating highly agitated behavior which was threatening the safety of himself and his (throwing furniture at mckeon, ripping off door frames, etc). Although his behavior on the unit has been free of threats and violence, he is refusing to involve his , who reports fear for her safety given his behavior (violence directed at her prior to admission) and the fact that he has implicated her in his delusional system and believes she is conspiring within [place] government against him. Further, he is uncooperative with treatment, is refusing medication (although not resisting when given intramuscular injections of olanzapine), and declining outpatient treatment. This is a difficult and complex situation. The patient's dyscontrol behavior does not seem to be specific to his , and even were he to leave the hospital without going home to his , the behaviors described by his give reason to predict that he would quickly become a danger to himself or other people in the community. He lacks insight, and expresses a firm belief that he is on a mission to protect and save innocent people. His calmer behavior here is also within the context of his taking psychiatric medications, and he has made it abundantly clear that he will not consider taking any psychiatric medication unless it is forced on him in the hospital. 304 extended involuntarily commitment was granted on 11/30, and referral to the [facility] has been sent as he remains a danger to himself and others and is refusing to engage in conversation regarding alternative discharge options. As time has progressed, it appears that he is not responding favorably to olanzapine. He continues to adamantly refuse any type of psychotropic medication voluntarily. At a dose of olanzapine 15 mg intramuscularly at bedtime the patient's behavior on the unit was pleasant and fairly passive (with the exception of increased irritability during meetings with psychiatric providers). However, his delusional belief system remained completely untouched as best we can tell and he began to demonstrate excessive sedation at this higher dose. Does was reduced to 10mg IM on 12/10 with reported improvement in alertness throughout the day. Organic work-up was requested by [facility]; however, patient is unwilling to participate in additional studies (anticipated ordering MRI, heavy metal studies, B12 and folate). We have received word on that the patient was accepted at [facility] - formally placed on wait list on 12/21 with estimated bed date >30 days away. He continues to be incorporating staff a [facility] psychiatric providers into his delusional system, now verbalizing severe distrust in any attempts to safety plan as he is unwilling to sign any paper work or participate in the steps that would be necessary for discharge home, as he believes the "system" is also controlling these situations as well. He states multiple times during our encounter that additional precautions would need to be taken for the "safety of my ." (1) Delusional disorder: 11/14 Patient admitted on an involuntary status to the behavioral health unit for continued assessment and treatment as indicated He will be maintained on every 15 minute safety checks We will continue to expand database Consider neuroimaging for w/u of psychosis prn orders for Ativan and Haldol today. I suspect it is likely that he will require medications over objection before he permits any treatment due to what appears to be severely impaired insight. Patient will be reevaluated tomorrow for psychiatric second opinion regarding need for treatment over objection. -presently patient requires continued inpatient hospitalization for workup and treatment of psychosis which was been recently associated with some violent behavior at home. he is at risk of harm to self and others if discharged prematurely. 11/15 -File for 303 involuntary commitment. -Patient is refusing to consider medication, but has haloperidol and Ativan as needed ordered. Would recommend a trial of olanzapine, and agree with medications over objection as he has severe psychotic symptoms which are impairing his ability to function and placing both himself and others at risk of harm due to his violent behavior at home. -Patient is refused to answer questions about whether or not he has guns, so we will need to get this information from his . At this point he is refusing to sign a release for her or anyone else. -Excuse patient from groups due to the severity of his psychosis and violent behavior. Medically necessary private room room due to the same. 11/16 - involuntary commitment granted. -Patient continues to refuse to allow his to be involved in treatment. He is now not denying that he was aggressive at home, but is refusing to discuss it, and is focused only on the conspiracy which he says led to his behavior. -Continue to consider medications over objection. At this point, we are attempting to engage the patient in treatment volitionally, and the risk of forcing medications at this time is further alienating him. However, if he is unable to engage in any manner, we will need to reconsider medications over objection. -Patient may attend groups if able to maintain appropriate behavioral control. -Patient has still not been willing to complete admission assessments, and has not been willing to provide certain information. 11/17 -Recommend medications over objection, as the patient is unable to engage in treatment due to the severity of his psychosis and lack of insight, and remains at imminent risk of harm to others, specifically his , if his symptoms remain untreated. He is floridly delusional, now implicating hospital staff in his delusions. He is not able to work as a result of his psychosis, and his is not able to work due to having to supervise him, and is fearful of him given his escalating violence at home. He continues to refuse to allow her to be involved in treatment, is not attending groups, and is refusing to even discuss medication options. Dr. Duarte recommended medications over objection, and I agree, as the patient is unlikely to improve without antipsychotic medication. -Start olanzapine Zydis 5 mg daily, with a 5 mg IM backup for refusal. Order FLP and FG tomorrow for baseline on an atypical antipsychotic. He will also need a medical work-up of psychosis once he is more cooperative, including brain MRI. -Ongoing poor sleep, staff will limit bright lights near his room at night, and if he can be compliant with medication, can move olanzapine to bedtime to assist with sleep. Giving during the day initially to allow for adequate staff in case of need for physical hold or restraint to receive medication. 11/18 - Continue olanzapine 5mg daily (offering PO Zydis with IM for refusal) - medications over objection, though patient has been cooperative with his preference for IM administration - Pt offered again PO olanzapine, with the eventual option of converting the medication to HS dosing if he continues to be cooperative - as he reports sedation after receiving the medication - Pt remains delusional and paranoid, unable to discuss examples of how we can assist him during his stay - Maintain MNPR due to level of psychosis - Fasting glucose - wnl at 90; triglycerides elevated at 188, remainder of lipid panel wnl - Continue attempts to coordinate care with patient's 11/19 -Patient is continuing to say that he does not wish for us to speak with his , and he again tells us that he will not sign a consent that will allow us to contact her. As above, his assertion is that he does not want us talking to her because she may tell us things that we will include in the record and that will eventually be used against him, either by the government or by [facility]. As a compromise, the patient says that he will ask his to call us and tell us whether she continues to feel that he is a danger to her, himself, or to anyone else. It was explained that we would also need to be able to talk to her about our concerns and we would need to coordinate aftercare arrangements with her. The patient replied to that by saying simply that he would not allow us to say anything about his care or recommended treatment to her at this time. -There seem to be some early indications that the patient may be responding to olanzapine. Today, when I told him that our concerns about his safety had not to do with his behaviors here in the hospital but, instead, about his behaviors at home (in the community) he quickly responded, "yes, but I am getting medication here!" (He almost immediately realized the implication of what he had just said, and he immediately changed the subject and began talking about how various entities were deliberately provoking him into losing his temper and acting in anger. -The patient tells us that he is using the fact that he has been given intramuscular medications against his will as evidence of our being the "dupes" or agents of the entities behind the conspiracy to silence him. He also reiterates that he believes that taking medication voluntarily is tantamount to acknowledging his need for psychiatric treatment, and he tells us that he has absolutely no psychiatric problem at all and does not need any treatment. -Today, we are increasing his olanzapine's as follows. We will begin olanzapine ODT 10 mg at bedtime starting tonight. We have also changed his order for medications over objection to olanzapine 10 mg IM daily for refusal of p.o. olanzapine. -Although the patient's presentation has many of the symptoms of a delusional disorder, persecutory typegiven the elaborate nature of the delusional system, we continue to suspect that what we are seeing is a somewhat atypical jorge, or discrete manic episodes overlaying a underlying delusional disorder. If the explanation for the patient's presentation is symptoms of a manic episode, his prognosis is better. We discussed the possibility of adding an antiobsessional medication which sometimes helps with pure delusional disorders, but the patient says that, absolutely, he will not take any medication that we offer him voluntarily. 11/22--continue Zyprexa IM hs, continues to refuse family meeting with due to paranoia, refuses 2-3 trial of PO Invega to convert to injectable. 11/23--File for 304 hearing d/t ongoing psychosis, lack of insight, refusal for outpatient treatment or ongoing medication, refusal to involve , and high risk for return to violent behavior if home w/ , whom he believes is part of the conspiracy against him. 11/24 - Continue olanzapine IM, continuing to offer patient PO medication which he is consistently refusing - Pt continues to refuse to involve in conversations regarding discharge and safety planning - 304 hearing scheduled for 11/30; pt continues to be psychotic and remains unable to engage in productive safety and discharge planing, therefore remains at high risk of harm to sefl or others if he is discharged home in his current state 11/25 - Titrating olanzapine to 10mg daily; patient continues to refuse offer for PO and is therefore continuing to receive IM injections each evening - 304 hearing 11/30; pt continues to be unwilling to participate in safety and discharge planning efforts 11/26 -The patient tells me that he received olanzapine 10 mg last evening and says that he feels that it has helped him sleep better. However, he notes that his sleep difficulty is related to the fact that his sleep schedule in the hospital is substantially different from the one that he is used to at home, with bedtime here at the hospital being 3 or 4 hours earlier than he is used to. Nevertheless, he says that he believes that he is not having any side effects from olanzapine and that, in the sense that it does help him fall asleep, it helps. Nevertheless, he also repeats today that he will not continue to take any medication, including olanzapine, if he is discharged. -I spoke with the patient's today, without disclosing any protected clinical data regarding the patient. She acknowledges that he frightens her, and, particularly recently, has caused her to fear for her personal physical safety. At the same time, she says tells me that she thinks that if she gets some advice about how best to "handle somebody who is delusional" possibly by getting into individual therapy, herself, she may be able to take him home. She also reports that should he be released (she is aware of upcoming hearing) that she will agree to take him home, because she loves him and wants to protect him, but continues to fear that he may again lose control of his behavior as a function of his delusions. -Today, the patient tells me that he recognizes that in his upcoming hearing on 11/30 (304) the issue may boil down to whether he can assure that he will be safe in the community and will not represent a risk to anyone else, even if he does not take medication. He also says that he recognizes the "Catch-22" that he is in because he realizes that the hospital is likely to say that his behavior in the hospital has been positively influenced by his taking olanzapine, and that without the structure of the hospital and without the medications, he may revert to the dangerous behaviors that precipitated the admission. -Of concern is the fact that the patient's tells us today that, effective yesterday, he has told her that he will no longer speak to her telephonically, and if he is released from the hospital on Saturday he will simply walk home, and if she is not comfortable being home with him she should leave. However, by the end of today he is allowing that he truly believes that his loves him and would not try to harm him if she had any choice, so he is at least considering contacting her again by telephone. 11/27 -Patient informed of 304 hearing and plan to refer to the [facility], as well as additional labs needed for that referral. -He continues to refuse a family meeting with his , who has expressed ongoing concern for her safety. He continues to refuse p.o. medication, outpatient treatment, and discussion of his aggression at home or plans to mitigate it. He remains at risk of harm to others, particularly his , and if discharged prematurely, as she is implicated in his delusion and he believes she has part of the conspiracy against him. -Encourage the patient to attend groups and focus on his own emotional reaction to his perception of events, healthy coping skills, and a discharge safety plan; all of which thus far he has been unwilling to do. 11/28 - 11/29 -Patient refused PPD, EKG, and chest x-ray for [facility] referral. He is refusing to consider a trial of Invega/MERCADO, and continues to refuse a family meeting. -304 involuntary commitment hearing scheduled for 12/01/2019, and will then pursue referral to the [facility]. 11/30 - 304 involuntary commitment granted today, referral to the [facility] is reportedly supported by the [facility] at this time - Pt was again offered PPD, EKG and CXR for [facility] referral, which he again declined - Although he is not overtly refusing medication changes, he does verbalize desire to give olanzapine "another week" before switching to another agent. 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 He remains delusional and without insight, refusing medication (although getting the IM of Zyprexa daily), a family meeting, or discharge planning/outpatient care. -Recommend referral to [facility] for long-term inpatient treatment, will simultaneously referring for a BCM and working on potential diversion plans. 12/02 - Continue IM olanzapine - as continues to refuse oral medications or discussion regarding alternative agents - Most documentation sent to [facility] for referral - awaiting 303 and 304 findings to be sent and will then fax these as well - Pt continues to decline medical tests generally requested as part of [facility] referral, but cannot force these studies to be done 12/03 -We will increase his dose of IM olanzapine to 12.5 mg at bedtime. The medication thus far does not seem to have had much of a favorable impact on the patient's delusional belief system, and he is not willing to consider antiobsessional medications in the form of a selective serotonin reuptake inhibitor. However, the patient is now sleeping better and his general demeanor has been more calm, more pleasant, and more self-possessed. -The patient reports that he does not feel that he is experiencing any side effects from olanzapine, but fall short of saying that it is helping him in any way, other than perhaps for sleep. He mentions that he sometimes has a pain in his left abdominal wall and lower rib cage that he says he does not feel as a side effect from medication but, rather, the result of his doing sit ups and his bedroom by placing his feet under the mattress and exercising in that way. 12/04 - 12/05 -Zyprexa 12.5 mg IM po qhs, sedation from yesterday seems to be resolving, can likely be increased tomorrow. 12/06 - Continue Zyprexa 12.5mg IM this evening - continue attempts to engage patient in conversation regarding dose increases or consideration of alternative agents - Pt continues to be unwilling to participate in conversation regarding alternative discharge plans to [facility] hospitalization. He continues to refuse to involve his or any other outpatient support in safety/discharge planning. - Referral to [facility] was completed and is reportedly being reviewed. 12/07 - Titrating Zyprexa 15mg IM - patient continues to refuse offer for oral medications. Pt was offered discussion about alternative agents, but declined. - Referral officially received by [facility] on 12/02/2019 (304 findings to be sent once received) - awaiting response regarding acceptance decision - Continue attempts to engage patient in discharge and safety planning - patient continues to be unwilling to discuss possible diversion plans 12/08 - 12/09 - Continue Zyprexa 15mg IM - pt continuing to refuse oral medications - Awaiting response from [facility] regarding referral - Pt remains unwilling to participate in safety planning or exploring diversion plan 12/10 -Patient is exhibiting excess sedation add Zyprexa 15 mg IM at bedtime. Specifically, the patient is observed to be hypersomnolent, has been sleeping off and on throughout the days, and indicates that he feels that at this higher dose of Zyprexa he is experiencing some cognitive slowing. At the same time, he does not seem to be responding to Zyprexa either at high doses or at low doses, other than it may be contributing to his ability to maintain self possession and avoid these sorts of dyscontroled behaviors that precipitated the current admission (for example, breaking furniture, knocking holes in the mckeon of his home, and tearing out shards of woodwork and ways that frightened his ). -The patient remains delusional and harbors an elaborate persecutory delusional system that he often hits that, but is reluctant to discuss in detail much of the time because he says that he fears that information that he shares with us will fall into the wrong hands and will interfere with his ability to expose those persons who he feels are responsible for the referenced "crimes a gainst humanity." -The patient when asked, convincingly states that he is not having any thoughts of extracting retribution from the individuals and entities that he holds responsible for his delusional construct regarding "crimes against humanity," other than to expose them by publishing proof of their crimes. Specifically, he says that he has no plan to cause physical harm to the person or property of others and says that he will leave the question of punishment to those who are lawful he entitled to impose it. -Because the patient's delusional belief seem not to be responding favorably to olanzapine at the higher dose, and because he is exhibiting some symptoms of excess sedation associated with olanzapine at 15 mg daily, his dose of olanzapine (to be given IM if necessary for refusal of p.o. olanzapine) will be reduced to olanzapine 10 mg IM at bedtime, starting tonight. 12/11 The patient is less sedated at the 10 mg of olanzapine IM he continues to refuse oral medications. Provider did again re-present the role of an SSRI that may help but he is clear and adamant about refusal of all medications. 12/12 - he is slightly less sedated at 10mg olanzapine IM each hs, but is more agitated today that he had been and more profuse with this provider about his delusional beliefs and seeing this provider and all medical care here as passive pawns of a broader conspiracy through the [employer]. He continues to decline oral medications, or any form of aftercare for monitoring of irritability and agitation maintaining that he does not have any mental illness and that all he has is "truth." Presently his risk of continuing to incorporate anyone who disagrees with his delusion into the delusion, his unwillingness to take medications after discharge, and unwillingness to participate any form of routine relationship with a behavioral health provider after discharge, and incorporation of his in his delusional system with prior physical aggression are concerning. I believe ongoing inpatient hospitalization is most appropriate setting for care at this time 12/13 - Continue olanzapine 10mg IM each evening (patient continues to refuse PO medications or discussion regarding alternative agents. - Pt continues to appear sedated, though is spending more time out of his room in the afternoons. - Anticipate decision regarding [facility] referral in the next few days 12/14 - Continue current treatment plan, patient reporting improvement in fatigue today - Anticipate update from [facility] soon regarding decision on referral - Pt continues to be resistant to attempts to safety plan or discuss alternative discharge options 12/15 - Continue current treatment plan - patient reports he is better tolerating lower dose of olanzapine but still reports daytime fatigue - Explanation provided to patient regarding request for MRI, heavy metal studies, B12, and folate - patient is persistent in his unwillingness to have these studies completed at this time - Will attempt to gather more information regarding reports of a previous MRI - Could consider cognitive assessment such as MoCA - as patient was limited in his willingness to even discuss superficial details with this provider, cognitive assessment was not attempted today - Pt went outside with staff this afternoon - continue to offer intermittently and assess the appropriateness of his presentation 12/16 - Continue current treatment plan - olanzapine 10mg qHS. Pt continues to refuse PO medications but tolerates IM injections without incident - Pt again unwilling to consider studies to rule out organic causes for the presence of delusions. Although organic cause was questioned during initial admission, it appears less likely to be the case but of course cannot be entirely ruled out without patient's willingness to participate in these studies. History obtained from patient and suggest a long history of OCD characteristics and paranoia that appear to have developed into delusional and persecutory thinking. - Pt remains resistant to participating in appropriate safety and discharge planning and continues to refuse to involve in these steps. - Awaiting decision from [facility] regarding his referral, it continues to be the opinion of our treatment team that patient is an appropriate candidate for long-term hospitalization 12/17 - Continue current treatment plan. Pt escorted outside by staff today. - Received word that patient has been accepted to [facility]. They require that 304 reflect commitment being changed to their facility prior to being able to formally put patient on their waitlist. These changes have been requested through the [facility]. 12/18--Continue current meds and treatment plan. terfinafine as above. 12/19 - 12/20--Continue current meds and treatment plan. 12/21 - Continue current treatment plan - pt reports he is tolerating 7.5mg dose of olanzapine better - Pt formally placed on waitlist for [facility] today - updated 304 was received from the [facility] and faxed to [facility] 12/22 - 12/23 - Continue current medications and treatment plan 12/24 -Patient reports that he feels that he is tolerating olanzapine 7.5 mg IM at bedtime fairly well, and notes that the adverse effect of excess somnolence that he was experiencing at higher doses has essentially resolved. The treatment team agrees that the patient has been more alert and, but he continues to refuse to attend groups. -Attempts to appeal to the patient's logic remain unsuccessful, which is quite typical of delusional disorder. However, he has not been able to neutralize data that seem to contradict his highly systematized delusional system, and when this occurs he tends to become surprisingly concrete with responses such as "well, I guess that only means I am a raving lunatic" or "look, I know what I know. These things are real, no matter what anyone says." -The patient's brother has contacted the treatment team. 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 The patient's brother reports that he, the brother, and their mother and the patient's for all researching alternatives to long-term psychiatric hospitalization in a [facility] hospital. While we would love to see that happen, it seems unlikely given the fact that the patient is completely lacking in insight and completely unwilling to participate in any form of psychiatric treatment voluntarily. 12/25 - Continue current medications and treatment plan - Pt states family has offered suggestions for alternative treatment settings to the [facility] hospital, but patient had had no motivation to discuss these further - Pt maintains highly sophisticated and fixed delusional thought content 12/26 - Continue current medications and treatment plan - Awaiting bed date from [facility]; patient officially on waitlist 12/27 - Continue olanzapine 7.5mg qHS, patient continues to take the medication IM as he continues to refuse the offer for PO - Awaiting bed date from [facility]; patient remains on official waitlist - Pt was able to discuss more of his delusional beliefs today, claiming he will not participate in any discussions toward diversion from the [facility] discharge plan as even the safety plan would be controlled by the "system" and cannot be trusted. He continues to believe that this same "system" is to blame for provoking his anger outbursts prior to admission. These delusional beliefs remain fixed and are unlikely to be fully mitigated in the acute inpatient setting - recommendation remains for extended inpatient psychiatric hospitalization, and patient has been accepted at [facility] in order to complete this necessary treatment. - His is unwilling to commit to medications on discharge, unwilling to sign paperwork to complete outpatient psychiatric referrals, and continues to imply that additional steps would be necessary by the "system" in order to ensure the "safety of my ." Risk Factors Assessment Male: Yes : Yes Do You Have Access To A Gun?: No ( denies that they have any guns at home) Health Problems: No Mental Health Diagnoses: Yes Substance Use Disorders: No Previous Attempt: No Previous Psychiatric Hospitalization: No Hopelessness: No Smoker: No Protective Factors Assessment : Yes Responsible for Young Children: No Employed: No Stable Relationships: No ( is supportive, but fearful of him due to his vi olence towards her.) Good Rapport with Provider: No (No outpatient providers.) Interval History Identifying Information SAL MAGANA is a 59-year-old M admitted on 11/14/19 19:58 on a 302 involuntary commitment for paranoia and violence at home, on a 304 extended involuntary commitment as of 11/30. Pt has been referred to [facility] and has been accepted. Awaiting bed date. Chief Complaint "Oh, I'm fine. Just reading a little bit." Review of Systems Notes Constitutional: denied Cardiovascular: denied Respiratory: denied Gastrointestinal: denied Neurological: denied Psychiatric: denies symptoms other than stated above Total of at least 10 systems reviewed, pertinent positives as above and in HPI. Sleep Information Total Hours of Sleep: 6 Sleep Comments: pt on q-15 minute checks Meal Information Percent Meal Consumed - Breakfast: 100 Percent Meal Consumed - Lunch: 100 Percent Meal Consumed - Dinner: 100 Nutrition Comment: documented from the pt. meal record Subjective Subjective Patient was seen & assessed and interval progress reviewed with treatment team. Staff report the patient continues to be polite, but is refusing to engage with group programming. He continues to read or complete math problems independently most of the day. Awaiting bed date from [facility]. Pt was seen today to assess progress since admission. Pt was observed to be reading after breakfast, but at time of attempted interview he was in his room napping. Pt did request to have conversation later in the day, reporting he was tired and wished to sleep. Second attempt was made to meet with the patient after lunch. Pt was found to be reading a book and stated he is "fine." Pt stated he was feeling a bit more fatigued this morning, but in some ways relates this to limited stimuli in the hospital setting. We spent some time discussing what patient believes [facility] will be like. It was also reviewed that our programming is generally designed for acute hospitalizations, which may explain why patient feels there is less stimulation. In discussing the state hospitalization, the patient states that he has resigned to the idea of going there and has not put any additional thought into alternative plans. This provider attempted to distinguish if patient feel that he is resisting the pre- described delusional "narrative" in any way - as he often claims he won't be controlled by them, but also appears to be resigning to extended psychiatric hospitalization. Pt feels that the "system" will have a hand in either decision that would be made - controlling all aspects of his discharge plan. Pt maintains that in order for him to be discharged home to his "they would need to give her more information, disclose more knowledge to her to help her handle this situation and handle me being released. For the safety of my they would have to provide her with more information." Pt continues to believe the "system if you will" that is controlling the "narrative" is made up of "the university, higher education in general, and the [place] Government." He continues to blame the system for "driving me to the point of anger", and feels they will continue to be involved if he is discharged home. Pt states "there is nothing honest about this, nothing honorable in this situation." Pt seems to imply that the [facility] is playing into their desire to "keep me locked away forever." Pt makes it clear he will not sign any paperwork at this time, as he believes that deception was involved in his admission as "I believe a paper I was asked to sign about billing my insurance was actually the paper that said I was to be treated in this setting. I've learned from that, I will not sign anything again." Pt denies any physical complaints related to medication or other concerns. He denies other needs at this time. Physical Exam Psychiatric Orientation: alert, oriented x 3 and + guarded (superficially cooperative ) Apperance: appropriately dressed, + disheveled (long skinner hair, appearing unkempt) and appeared stated age Eye Contact: + fair eye contact (occasionally looking up from book to make direct eye contact) Motor Behavior: no abnormal motor movements (observed while sitting in chair in day area) Speech: normal rate/rhythm/volume of speech (rambling at times ) Affect: + blunted affect Mood: no depressed mood ("I'm ok") Thought Process: + circumstantial thought process and + perseveration; + thought process not linear or logical Thought Content: + preoccupation, + paranoid, + delusions and + persecution Suicidal Thoughts: denies suicidal thoughts Homicidal Thoughts: denies homicidal thoughts Hallucinations: no auditory hallucinations and no visual hallucinations Cognition: attention grossly intact and language grossly intact Estimated Intelligence: consistent with education level Insight: + severely impaired insight Judgement: + poor judgement Vital Signs (Past 24 Hours) Last Vital Signs Temp 36.5 C 12/28/19 06:41 Pulse 77 12/28/19 06:42 Resp 18 12/28/19 06:41 BP 99/62 L 12/28/19 06:42 Pulse Ox 98 11/14/19 20:15 Results & Data ([facility]) Current Inpatient Medications Current Inpatient Medications: Current Inpatient Medications Acetaminophen (Tylenol) 650 mg PO Q4H PRN PRN Reason: Headache or Minor Fever Stop: 01/10/20 20:43 Al Hydrox/Mg Hydrox/Simethicone (Maalox) 30 ml PO Q4H PRN PRN Reason: GI Upset Stop: 01/10/20 20:43 Bismuth Subsalicylate (Kaopectate) 15 ml PO PRN PRN PRN Reason: Loose Stool Stop: 01/10/20 20:43 Hydroxyzine HCl (Vistaril) 50 mg PO HSZ PRN PRN Reason: Insomnia Stop: 01/10/20 20:43 Hydroxyzine HCl (Vistaril) 25 mg PO Q4H PRN PRN Reason: Anxiety Stop: 01/10/20 20:43 Magnesium Hydroxide (Milk Of Magnesia) 30 ml PO DAILY PRN PRN Reason: Constipation Stop: 01/10/20 20:43 Centrum Silver Men's : Non-Formulary Patient's Own Med 1 ea PO QAM ADRIANE Stop: 01/13/20 08:59 Last Admin: 12/28/19 08:20 Dose: 1 tab Documented by: Olanzapine (Zyprexa) 7.5 mg IM HS PRN PRN Reason: Refusal of p.o. olanzapine. Stop: 01/17/20 21:59 Last Admin: 12/27/19 22:11 Dose: 7.5 mg Documented by: Olanzapine (Zyprexa Zydis Od) 7.5 mg PO HS ADRIANE Stop: 01/18/20 21:59 Last Admin: 12/27/19 22:21 Dose: Not Given Documented by: Sodium Chloride (Bennett Nasal) 1 - 2 sprays NA PRN PRN PRN Reason: Nasal Dryness/Congestion Stop: 01/10/20 20:43 Last Admin: 12/15/19 23:37 Dose: 1 sprays Documented by: Terbinafine HCl (Lamisil At) 1 appln EXT BID ADRIANE Stop: 01/18/20 20:59 Last Admin: 12/28/19 08:19 Dose: Not Given Documented by: Post Discharge Appointments Primary Care Physician Name Of Family Doctor: [facility] - Dr. Jeffrey Torres Primary Care Provider Appointment Comment: [address], [address], [place] [address] Other #1: Name of Aftercare Appointment: [facility] [employer] - Preeti Kelly Phone Number of Aftercare Appointment: [phone] Contact Information Discharge Discharge Address: [address] [place] [address], [address], [place] [address]
[2019-12-28] MEDS: OLANZapine 10 MG/2.1 ML SDV IM PRN (22:04)
[2019-12-28] MEDS: OLANZAPINE ZYDIS 5 MG ORALLY DIS. TAB PO SCH (22:07)
[2019-12-29] MEDS: MULTIVITAMIN PO SCH (08:41)
[2019-12-29] MEDS: TERBINAFINE CR 30 GM TUBE EXT SCH ×2 (08:42→21:59)
--- NOTE | 2019-12-29 09:06 | Psychiatric Progress Note ---
Date of Service December 29, 2019 Impression / Recommendations Impression 59-year-old male admitted involuntarily for inpatient psychiatric treatment. Primary diagnosis of delusional disorder, persecutory type. Information provided by his indicates that several years ago certain changes in his department at the [employer] triggered a certain amount of distrust by the patient, which gradually grew into the elaborate, highly systematized delusional belief system that is currently in place. His delusional system was likely amplified by his tendency to obsess, focus on patterns, and look for theoretical explanations. While patient is highly attached to these delusional beliefs and is demonstrating inability/unwillingness to consider they may not be accurate - the primary safety concern surrounding his condition is the fact that he had been demonstrating highly agitated behavior which was threatening the safety of himself and his (throwing furniture at mckeon, ripping off door frames, etc). Although his behavior on the unit has been free of threats and violence, he is refusing to involve his , who reports fear for her safety given his behavior (violence directed at her prior to admission) and the fact that he has implicated her in his delusional system and believes she is conspiring within [place] government against him. Further, he is uncooperative with treatment, is refusing medication (although not resisting when given intramuscular injections of olanzapine), and declining outpatient treatment. This is a difficult and complex situation. The patient's dyscontrol behavior does not seem to be specific to his , and even were he to leave the hospital without going home to his , the behaviors described by his give reason to predict that he would quickly become a danger to himself or other people in the community. He lacks insight, and expresses a firm belief that he is on a mission to protect and save innocent people. His calmer behavior here is also within the context of his taking psychiatric medications, and he has made it abundantly clear that he will not consider taking any psychiatric medication unless it is forced on him in the hospital. 304 extended involuntarily commitment was granted on 11/30, and referral to the [facility] has been sent as he remains a danger to himself and others and is refusing to engage in conversation regarding alternative discharge options. As time has progressed, it appears that he is not responding favorably to olanzapine. He continues to adamantly refuse any type of psychotropic medication voluntarily. At a dose of olanzapine 15 mg intramuscularly at bedtime the patient's behavior on the unit was pleasant and fairly passive (with the exception of increased irritability during meetings with psychiatric providers). However, his delusional belief system remained completely untouched as best we can tell and he began to demonstrate excessive sedation at this higher dose. Does was reduced to 10mg IM on 12/10 with reported improvement in alertness throughout the day. Organic work-up was requested by [facility]; however, patient is unwilling to participate in additional studies (anticipated ordering MRI, heavy metal studies, B12 and folate). We have received word on that the patient was accepted at [facility] - formally placed on wait list on 12/21 with estimated bed date >30 days away. He continues to be incorporating staff a [facility] psychiatric providers into his delusional system, now verbalizing severe distrust in any attempts to safety plan as he is unwilling to sign any paper work or participate in the steps that would be necessary for discharge home, as he believes the "system" is also controlling these situations as well. He states multiple times during our encounter that additional precautions would need to be taken for the "safety of my ." (1) Delusional disorder: 11/14 Patient admitted on an involuntary status to the behavioral health unit for continued assessment and treatment as indicated He will be maintained on every 15 minute safety checks We will continue to expand database Consider neuroimaging for w/u of psychosis prn orders for Ativan and Haldol today. I suspect it is likely that he will require medications over objection before he permits any treatment due to what appears to be severely impaired insight. Patient will be reevaluated tomorrow for psychiatric second opinion regarding need for treatment over objection. -presently patient requires continued inpatient hospitalization for workup and treatment of psychosis which was been recently associated with some violent behavior at home. he is at risk of harm to self and others if discharged prematurely. 11/15 -File for 303 involuntary commitment. -Patient is refusing to consider medication, but has haloperidol and Ativan as needed ordered. Would recommend a trial of olanzapine, and agree with medications over objection as he has severe psychotic symptoms which are impairing his ability to function and placing both himself and others at risk of harm due to his violent behavior at home. -Patient is refused to answer questions about whether or not he has guns, so we will need to get this information from his . At this point he is refusing to sign a release for her or anyone else. -Excuse patient from groups due to the severity of his psychosis and violent behavior. Medically necessary private room room due to the same. 11/16 - involuntary commitment granted. -Patient continues to refuse to allow his to be involved in treatment. He is now not denying that he was aggressive at home, but is refusing to discuss it, and is focused only on the conspiracy which he says led to his behavior. -Continue to consider medications over objection. At this point, we are attempting to engage the patient in treatment volitionally, and the risk of forcing medications at this time is further alienating him. However, if he is unable to engage in any manner, we will need to reconsider medications over objection. -Patient may attend groups if able to maintain appropriate behavioral control. -Patient has still not been willing to complete admission assessments, and has not been willing to provide certain information. 11/17 -Recommend medications over objection, as the patient is unable to engage in treatment due to the severity of his psychosis and lack of insight, and remains at imminent risk of harm to others, specifically his , if his symptoms remain untreated. He is floridly delusional, now implicating hospital staff in his delusions. He is not able to work as a result of his psychosis, and his is not able to work due to having to supervise him, and is fearful of him given his escalating violence at home. He continues to refuse to allow her to be involved in treatment, is not attending groups, and is refusing to even discuss medication options. Dr. Duarte recommended medications over objection, and I agree, as the patient is unlikely to improve without antipsychotic medication. -Start olanzapine Zydis 5 mg daily, with a 5 mg IM backup for refusal. Order FLP and FG tomorrow for baseline on an atypical antipsychotic. He will also need a medical work-up of psychosis once he is more cooperative, including brain MRI. -Ongoing poor sleep, staff will limit bright lights near his room at night, and if he can be compliant with medication, can move olanzapine to bedtime to assist with sleep. Giving during the day initially to allow for adequate staff in case of need for physical hold or restraint to receive medication. 11/18 - Continue olanzapine 5mg daily (offering PO Zydis with IM for refusal) - medications over objection, though patient has been cooperative with his preference for IM administration - Pt offered again PO olanzapine, with the eventual option of converting the medication to HS dosing if he continues to be cooperative - as he reports sedation after receiving the medication - Pt remains delusional and paranoid, unable to discuss examples of how we can assist him during his stay - Maintain MNPR due to level of psychosis - Fasting glucose - wnl at 90; triglycerides elevated at 188, remainder of lipid panel wnl - Continue attempts to coordinate care with patient's 11/19 -Patient is continuing to say that he does not wish for us to speak with his , and he again tells us that he will not sign a consent that will allow us to contact her. As above, his assertion is that he does not want us talking to her because she may tell us things that we will include in the record and that will eventually be used against him, either by the government or by [facility]. As a compromise, the patient says that he will ask his to call us and tell us whether she continues to feel that he is a danger to her, himself, or to anyone else. It was explained that we would also need to be able to talk to her about our concerns and we would need to coordinate aftercare arrangements with her. The patient replied to that by saying simply that he would not allow us to say anything about his care or recommended treatment to her at this time. -There seem to be some early indications that the patient may be responding to olanzapine. Today, when I told him that our concerns about his safety had not to do with his behaviors here in the hospital but, instead, about his behaviors at home (in the community) he quickly responded, "yes, but I am getting medication here!" (He almost immediately realized the implication of what he had just said, and he immediately changed the subject and began talking about how various entities were deliberately provoking him into losing his temper and acting in anger. -The patient tells us that he is using the fact that he has been given intramuscular medications against his will as evidence of our being the "dupes" or agents of the entities behind the conspiracy to silence him. He also reiterates that he believes that taking medication voluntarily is tantamount to acknowledging his need for psychiatric treatment, and he tells us that he has absolutely no psychiatric problem at all and does not need any treatment. -Today, we are increasing his olanzapine's as follows. We will begin olanzapine ODT 10 mg at bedtime starting tonight. We have also changed his order for medications over objection to olanzapine 10 mg IM daily for refusal of p.o. olanzapine. -Although the patient's presentation has many of the symptoms of a delusional disorder, persecutory typegiven the elaborate nature of the delusional system, we continue to suspect that what we are seeing is a somewhat atypical jorge, or discrete manic episodes overlaying a underlying delusional disorder. If the explanation for the patient's presentation is symptoms of a manic episode, his prognosis is better. We discussed the possibility of adding an antiobsessional medication which sometimes helps with pure delusional disorders, but the patient says that, absolutely, he will not take any medication that we offer him voluntarily. 11/22--continue Zyprexa IM hs, continues to refuse family meeting with due to paranoia, refuses 2-3 trial of PO Invega to convert to injectable. 11/23--File for 304 hearing d/t ongoing psychosis, lack of insight, refusal for outpatient treatment or ongoing medication, refusal to involve , and high risk for return to violent behavior if home w/ , whom he believes is part of the conspiracy against him. 11/24 - Continue olanzapine IM, continuing to offer patient PO medication which he is consistently refusing - Pt continues to refuse to involve in conversations regarding discharge and safety planning - 304 hearing scheduled for 11/30; pt continues to be psychotic and remains unable to engage in productive safety and discharge planing, therefore remains at high risk of harm to sefl or others if he is discharged home in his current state 11/25 - Titrating olanzapine to 10mg daily; patient continues to refuse offer for PO and is therefore continuing to receive IM injections each evening - 304 hearing 11/30; pt continues to be unwilling to participate in safety and discharge planning efforts 11/26 -The patient tells me that he received olanzapine 10 mg last evening and says that he feels that it has helped him sleep better. However, he notes that his sleep difficulty is related to the fact that his sleep schedule in the hospital is substantially different from the one that he is used to at home, with bedtime here at the hospital being 3 or 4 hours earlier than he is used to. Nevertheless, he says that he believes that he is not having any side effects from olanzapine and that, in the sense that it does help him fall asleep, it helps. Nevertheless, he also repeats today that he will not continue to take any medication, including olanzapine, if he is discharged. -I spoke with the patient's today, without disclosing any protected clinical data regarding the patient. She acknowledges that he frightens her, and, particularly recently, has caused her to fear for her personal physical safety. At the same time, she says tells me that she thinks that if she gets some advice about how best to "handle somebody who is delusional" possibly by getting into individual therapy, herself, she may be able to take him home. She also reports that should he be released (she is aware of upcoming hearing) that she will agree to take him home, because she loves him and wants to protect him, but continues to fear that he may again lose control of his behavior as a function of his delusions. -Today, the patient tells me that he recognizes that in his upcoming hearing on 11/30 (304) the issue may boil down to whether he can assure that he will be safe in the community and will not represent a risk to anyone else, even if he does not take medication. He also says that he recognizes the "Catch-22" that he is in because he realizes that the hospital is likely to say that his behavior in the hospital has been positively influenced by his taking olanzapine, and that without the structure of the hospital and without the medications, he may revert to the dangerous behaviors that precipitated the admission. -Of concern is the fact that the patient's tells us today that, effective yesterday, he has told her that he will no longer speak to her telephonically, and if he is released from the hospital on Saturday he will simply walk home, and if she is not comfortable being home with him she should leave. However, by the end of today he is allowing that he truly believes that his loves him and would not try to harm him if she had any choice, so he is at least considering contacting her again by telephone. 11/27 -Patient informed of 304 hearing and plan to refer to the [facility], as well as additional labs needed for that referral. -He continues to refuse a family meeting with his , who has expressed ongoing concern for her safety. He continues to refuse p.o. medication, outpatient treatment, and discussion of his aggression at home or plans to mitigate it. He remains at risk of harm to others, particularly his , and if discharged prematurely, as she is implicated in his delusion and he believes she has part of the conspiracy against him. -Encourage the patient to attend groups and focus on his own emotional reaction to his perception of events, healthy coping skills, and a discharge safety plan; all of which thus far he has been unwilling to do. 11/28 - 11/29 -Patient refused PPD, EKG, and chest x-ray for [facility] referral. He is refusing to consider a trial of Invega/MERCADO, and continues to refuse a family meeting. -304 involuntary commitment hearing scheduled for 12/01/2019, and will then pursue referral to the [facility]. 11/30 - 304 involuntary commitment granted today, referral to the [facility] is reportedly supported by the critical access hospital at this time - Pt was again offered PPD, EKG and CXR for [facility] referral, which he again declined - Although he is not overtly refusing medication changes, he does verbalize desire to give olanzapine "another week" before switching to another agent. 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 He remains delusional and without insight, refusing medication (although getting the IM of Zyprexa daily), a family meeting, or discharge planning/outpatient care. -Recommend referral to [facility] for long-term inpatient treatment, will simultaneously referring for a BCM and working on potential diversion plans. 12/02 - Continue IM olanzapine - as continues to refuse oral medications or discussion regarding alternative agents - Most documentation sent to [facility] for referral - awaiting 303 and 304 findings to be sent and will then fax these as well - Pt continues to decline medical tests generally requested as part of [facility] referral, but cannot force these studies to be done 12/03 -We will increase his dose of IM olanzapine to 12.5 mg at bedtime. The medication thus far does not seem to have had much of a favorable impact on the patient's delusional belief system, and he is not willing to consider antiobsessional medications in the form of a selective serotonin reuptake inhibitor. However, the patient is now sleeping better and his general demeanor has been more calm, more pleasant, and more self-possessed. -The patient reports that he does not feel that he is experiencing any side effects from olanzapine, but fall short of saying that it is helping him in any way, other than perhaps for sleep. He mentions that he sometimes has a pain in his left abdominal wall and lower rib cage that he says he does not feel as a side effect from medication but, rather, the result of his doing sit ups and his bedroom by placing his feet under the mattress and exercising in that way. 12/04 - 12/05 -Zyprexa 12.5 mg IM po qhs, sedation from yesterday seems to be resolving, can likely be increased tomorrow. 12/06 - Continue Zyprexa 12.5mg IM this evening - continue attempts to engage patient in conversation regarding dose increases or consideration of alternative agents - Pt continues to be unwilling to participate in conversation regarding alternative discharge plans to [facility] hospitalization. He continues to refuse to involve his or any other outpatient support in safety/discharge planning. - Referral to [facility] was completed and is reportedly being reviewed. 12/07 - Titrating Zyprexa 15mg IM - patient continues to refuse offer for oral medications. Pt was offered discussion about alternative agents, but declined. - Referral officially received by [facility] on 12/02/2019 (304 findings to be sent once received) - awaiting response regarding acceptance decision - Continue attempts to engage patient in discharge and safety planning - patient continues to be unwilling to discuss possible diversion plans 12/08 - 12/09 - Continue Zyprexa 15mg IM - pt continuing to refuse oral medications - Awaiting response from [facility] regarding referral - Pt remains unwilling to participate in safety planning or exploring diversion plan 12/10 -Patient is exhibiting excess sedation add Zyprexa 15 mg IM at bedtime. Specifically, the patient is observed to be hypersomnolent, has been sleeping off and on throughout the days, and indicates that he feels that at this higher dose of Zyprexa he is experiencing some cognitive slowing. At the same time, he does not seem to be responding to Zyprexa either at high doses or at low doses, other than it may be contributing to his ability to maintain self possession and avoid these sorts of dyscontroled behaviors that precipitated the current admission (for example, breaking furniture, knocking holes in the mckeon of his home, and tearing out shards of woodwork and ways that frightened his ). -The patient remains delusional and harbors an elaborate persecutory delusional system that he often hits that, but is reluctant to discuss in detail much of the time because he says that he fears that information that he shares with us will fall into the wrong hands and will interfere with his ability to expose those persons who he feels are responsible for the referenced "crimes a gainst humanity." -The patient when asked, convincingly states that he is not having any thoughts of extracting retribution from the individuals and entities that he holds responsible for his delusional construct regarding "crimes against humanity," other than to expose them by publishing proof of their crimes. Specifically, he says that he has no plan to cause physical harm to the person or property of others and says that he will leave the question of punishment to those who are lawful he entitled to impose it. -Because the patient's delusional belief seem not to be responding favorably to olanzapine at the higher dose, and because he is exhibiting some symptoms of excess sedation associated with olanzapine at 15 mg daily, his dose of olanzapine (to be given IM if necessary for refusal of p.o. olanzapine) will be reduced to olanzapine 10 mg IM at bedtime, starting tonight. 12/11 The patient is less sedated at the 10 mg of olanzapine IM he continues to refuse oral medications. Provider did again re-present the role of an SSRI that may help but he is clear and adamant about refusal of all medications. 12/12 - he is slightly less sedated at 10mg olanzapine IM each hs, but is more agitated today that he had been and more profuse with this provider about his delusional beliefs and seeing this provider and all medical care here as passive pawns of a broader conspiracy through the [employer]. He continues to decline oral medications, or any form of aftercare for monitoring of irritability and agitation maintaining that he does not have any mental illness and that all he has is "truth." Presently his risk of continuing to incorporate anyone who disagrees with his delusion into the delusion, his unwillingness to take medications after discharge, and unwillingness to participate any form of routine relationship with a behavioral health provider after discharge, and incorporation of his in his delusional system with prior physical aggression are concerning. I believe ongoing inpatient hospitalization is most appropriate setting for care at this time 12/13 - Continue olanzapine 10mg IM each evening (patient continues to refuse PO medications or discussion regarding alternative agents. - Pt continues to appear sedated, though is spending more time out of his room in the afternoons. - Anticipate decision regarding [facility] referral in the next few days 12/14 - Continue current treatment plan, patient reporting improvement in fatigue today - Anticipate update from [facility] soon regarding decision on referral - Pt continues to be resistant to attempts to safety plan or discuss alternative discharge options 12/15 - Continue current treatment plan - patient reports he is better tolerating lower dose of olanzapine but still reports daytime fatigue - Explanation provided to patient regarding request for MRI, heavy metal studies, B12, and folate - patient is persistent in his unwillingness to have these studies completed at this time - Will attempt to gather more information regarding reports of a previous MRI - Could consider cognitive assessment such as MoCA - as patient was limited in his willingness to even discuss superficial details with this provider, cognitive assessment was not attempted today - Pt went outside with staff this afternoon - continue to offer intermittently and assess the appropriateness of his presentation 12/16 - Continue current treatment plan - olanzapine 10mg qHS. Pt continues to refuse PO medications but tolerates IM injections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
[2019-12-29] MEDS: OLANZapine 10 MG/2.1 ML SDV IM PRN (21:58)
[2019-12-29] MEDS: OLANZAPINE ZYDIS 5 MG ORALLY DIS. TAB PO SCH (21:59)
[2019-12-30] MEDS: MULTIVITAMIN PO SCH (08:25)
[2019-12-30] MEDS: TERBINAFINE CR 30 GM TUBE EXT SCH ×2 (08:25→22:02)
--- NOTE | 2019-12-30 12:28 | Psychiatric Progress Note ---
Date of Service December 30, 2019 Impression / Recommendations Impression 59-year-old male admitted involuntarily for inpatient psychiatric treatment. Primary diagnosis of delusional disorder, persecutory type. Information provided by his indicates that several years ago certain changes in his department at the [place] triggered a certain amount of distrust by the patient, which gradually grew into the elaborate, highly systematized delusional belief system that is currently in place. His delusional system was likely amplified by his tendency to obsess, focus on patterns, and look for theoretical explanations. While patient is highly attached to these delusional beliefs and is demonstrating inability/unwillingness to consider they may not be accurate - the primary safety concern surrounding his condition is the fact that he had been demonstrating highly agitated behavior which was threatening the safety of himself and his (throwing furniture at mckeon, ripping off door frames, etc). Although his behavior on the unit has been free of threats and violence, he is refusing to involve his , who reports fear for her safety given his behavior (violence directed at her prior to admission) and the fact that he has implicated her in his delusional system and believes she is conspiring within [place] government against him. Further, he is uncooperative with treatment, is refusing medication (although not resisting when given intramuscular injections of olanzapine), and declining outpatient treatment. This is a difficult and complex situation. The patient's dyscontrol behavior does not seem to be specific to his , and even were he to leave the hospital without going home to his , the behaviors described by his give reason to predict that he would quickly become a danger to himself or other people in the community. He lacks insight, and expresses a firm belief that he is on a mission to protect and save innocent people. His calmer behavior here is also within the context of his taking psychiatric medications, and he has made it abundantly clear that he will not consider taking any psychiatric medication unless it is forced on him in the hospital. 304 extended involuntarily commitment was granted on 11/30, and referral to the [facility] has been sent as he remains a danger to himself and others and is refusing to engage in conversation regarding alternative discharge options. As time has progressed, it appears that he is not responding favorably to olanzapine. He continues to adamantly refuse any type of psychotropic medication voluntarily. At a dose of olanzapine 15 mg intramuscularly at bedtime the patient's behavior on the unit was pleasant and fairly passive (with the exception of increased irritability during meetings with psychiatric providers). However, his delusional belief system remained completely untouched as best we can tell and he began to demonstrate excessive sedation at this higher dose. Does was reduced to 10mg IM on 12/10 with reported improvement in alertness throughout the day. Organic work-up was requested by [facility]; however, patient is unwilling to participate in additional studies (anticipated ordering MRI, heavy metal studies, B12 and folate). We have received word on that the patient was accepted at [facility] - formally placed on wait list on 12/21 with estimated bed date >30 days away. He continues to be incorporating staff a ne psychiatric providers into his delusional system, now verbalizing severe distrust in any attempts to safety plan as he is unwilling to sign any paper work or participate in the steps that would be necessary for discharge home, as he believes the "system" is also controlling these situations as well. He states multiple times during our encounter that additional precautions would need to be taken for the "safety of my " if he were to be discharged home. (1) Delusional disorder: 11/14 Patient admitted on an involuntary status to the behavioral health unit for continued assessment and treatment as indicated He will be maintained on every 15 minute safety checks We will continue to expand database Consider neuroimaging for w/u of psychosis prn orders for Ativan and Haldol today. I suspect it is likely that he will require medications over objection before he permits any treatment due to what appears to be severely impaired insight. Patient will be reevaluated tomorrow for psychiatric second opinion regarding need for treatment over objection. -presently patient requires continued inpatient hospitalization for workup and treatment of psychosis which was been recently associated with some violent behavior at home. he is at risk of harm to self and others if discharged prematurely. 11/15 -File for 303 involuntary commitment. -Patient is refusing to consider medication, but has haloperidol and Ativan as needed ordered. Would recommend a trial of olanzapine, and agree with medications over objection as he has severe psychotic symptoms which are impairing his ability to function and placing both himself and others at risk of harm due to his violent behavior at home. -Patient is refused to answer questions about whether or not he has guns, so we will need to get this information from his . At this point he is refusing to sign a release for her or anyone else. -Excuse patient from groups due to the severity of his psychosis and violent behavior. Medically necessary private room room due to the same. 11/16 - involuntary commitment granted. -Patient continues to refuse to allow his to be involved in treatment. He is now not denying that he was aggressive at home, but is refusing to discuss it, and is focused only on the conspiracy which he says led to his behavior. -Continue to consider medications over objection. At this point, we are attempting to engage the patient in treatment volitionally, and the risk of forcing medications at this time is further alienating him. However, if he is unable to engage in any manner, we will need to reconsider medications over objection. -Patient may attend groups if able to maintain appropriate behavioral contro l. -Patient has still not been willing to complete admission assessments, and has not been willing to provide certain information. 11/17 -Recommend medications over objection, as the patient is unable to engage in treatment due to the severity of his psychosis and lack of insight, and remains at imminent risk of harm to others, specifically his , if his symptoms remai n untreated. He is floridly delusional, now implicating hospital staff in his delusions. He is not able to work as a result of his psychosis, and his is not able to work due to having to supervise him, and is fearful of him given his escalating violence at home. He continues to refuse to allow her to be involved in treatment, is not attending groups, and is refusing to even discuss medicat ion options. Dr. Duarte recommended medications over objection, and I agree, as the patient is unlikely to improve without antipsychotic medication. -Start olanzapine Zydis 5 mg daily, with a 5 mg IM backup for refusal. Order FLP and FG tomorrow for baseline on an atypical antipsychotic. He will also need a medical work-up of psychosis once he is more cooperative, including brain MRI. -Ongoing poor sleep, staff will limit bright lights near his room at night, and if he can be compliant with medication, can move olanzapine to bedtime to assist with sleep. Giving during the day initially to allow for adequate staff in case of need for physical hold or restraint to receive medication. / - Continue olanzapine 5mg daily (offering PO Zydis with IM for refusal) - medications over objection, though patient has been cooperative with his preference for IM administration - Pt offered again PO olanzapine, with the eventual option of converting the medication to HS dosing if he continues to be cooperative - as he reports sedation after receiving the medication - Pt remains delusional and paranoid, unable to discuss examples of how we can assist him during his stay - Maintain MNPR due to level of psychosis - Fasting glucose - wnl at 90; triglycerides elevated at 188, remainder of lipid panel wnl - Continue attempts to coordinate care with patient's 11/19 -Patient is continuing to say that he does not wish for us to speak with his , and he again tells us that he will not sign a consent that will allow us to contact her. As above, his assertion is that he does not want us talking to her because she may tell us things that we will include in the record and that will eventually be used against him, either by the government or by [facility]. As a compromise, the patient says that he will ask his to call us and tell us whether she continues to feel that he is a danger to her, himself, or to anyone else. It was explained that we would also need to be able to talk to her about our concerns and we would need to coordinate aftercare arrangements with her. The patient replied to that by saying simply that he would not allow us to say anything about his care or recommended treatment to her at this time. -There seem to be some early indications that the patient may be responding to olanzapine. Today, when I told him that our concerns about his safety had not to do with his behaviors here in the hospital but, instead, about his behaviors at home (in the community) he quickly responded, "yes, but I am getting medication here!" (He almost immediately realized the implication of what he had just said, and he immediately changed the subject and began talking about how various entities were deliberately provoking him into losing his temper and acting in anger. -The patient tells us that he is using the fact that he has been given intramuscular medications against his will as evidence of our being the "dupes" or agents of the entities behind the conspiracy to silence him. He also reiterates that he believes that taking medication voluntarily is tantamount to acknowledging his need for psychiatric treatment, and he tells us that he has absolutely no psychiatric problem at all and does not need any treatment. -Today, we are increasing his olanzapine's as follows. We will begin olanzapine ODT 10 mg at bedtime starting tonight. We have also changed his order for medications over objection to olanzapine 10 mg IM daily for refusal of p.o. olanzapine. -Although the patient's presentation has many of the symptoms of a delusional disorder, persecutory typegiven the elaborate nature of the delusional system, we continue to suspect that what we are seeing is a somewhat atypical jorge, or discrete manic episodes overlaying a underlying delusional disorder. If the explanation for the patient's presentation is symptoms of a manic episode, his prognosis is better. We discussed the possibility of adding an antiobsessional medication which sometimes helps with pure delusional disorders, but the patient says that, absolutely, he will not take any medication that we offer him voluntarily. 11/22--continue Zyprexa IM hs, continues to refuse family meeting with due to paranoia, refuses 2-3 trial of PO Invega to convert to injectable. 11/23--File for 304 hearing d/t ongoing psychosis, lack of insight, refusal for outpatient treatment or ongoing medication, refusal to involve , and high risk for return to violent behavior if home w/ , whom he believes is part of the conspiracy against him. 11/24 - Continue olanzapine IM, continuing to offer patient PO medication which he is consistently refusing - Pt continues to refuse to involve in conversations regarding discharge and safety planning - 304 hearing scheduled for 11/30; pt continues to be psychotic and remains unable to engage in productive safety and discharge planing, therefore remains at high risk of harm to sefl or others if he is discharged home in his current state 11/25 - Titrating olanzapine to 10mg daily; patient continues to refuse offer for PO and is therefore continuing to receive IM injections each evening - 304 hearing 11/30; pt continues to be unwilling to participate in safety and discharge planning efforts 11/26 -The patient tells me that he received olanzapine 10 mg last evening and says that he feels that it has helped him sleep better. However, he notes that his sleep difficulty is related to the fact that his sleep schedule in the hospital is substantially different from the one that he is used to at home, with bedtime here at the hospital being 3 or 4 hours earlier than he is used to. Nevertheless, he says that he believes that he is not having any side effects from olanzapine and that, in the sense that it does help him fall asleep, it helps. Nevertheless, he also repeats today that he will not continue to take any medication, including olanzapine, if he is discharged. -I spoke with the patient's today, without disclosing any protected clinical data regarding the patient. She acknowledges that he frightens her, and, particularly recently, has caused her to fear for her personal physical safety. At the same time, she says tells me that she thinks that if she gets some advice about how best to "handle somebody who is delusional" possibly by getting into individual therapy, herself, she may be able to take him home. She also reports that should he be released (she is aware of upcoming hearing) that she will agree to take him home, because she loves him and wants to protect him, but continues to fear that he may again lose control of his behavior as a function of his delusions. -Today, the patient tells me that he recognizes that in his upcoming hearing on 11/30 (304) the issue may boil down to whether he can assure that he will be safe in the community and will not represent a risk to anyone else, even if he does not take medication. He also says that he recognizes the "Catch-22" that he is in because he realizes that the hospital is likely to say that his behavior in the hospital has been positively influenced by his taking olanzapine, and that without the structure of the hospital and without the medications, he may revert to the dangerous behaviors that precipitated the admission. -Of concern is the fact that the patient's tells us today that, effective yesterday, he has told her that he will no longer speak to her telephonically, and if he is released from the hospital on Saturday he will simply walk home, and if she is not comfortable being home with him she should leave. However, by the end of today he is allowing that he truly believes that his loves him and would not try to harm him if she had any choice, so he is at least considering contacting her again by telephone. 11/27 -Patient informed of 304 hearing and plan to refer to the [facility], as well as additional labs needed for that referral. -He continues to refuse a family meeting with his , who has expressed ongoing concern for her safety. He continues to refuse p.o. medication, outpatient treatment, and discussion of his aggression at home or plans to mitigate it. He remains at risk of harm to others, particularly his , and if discharged prematurely, as she is implicated in his delusion and he believes she has part of the conspiracy against him. -Encourage the patient to attend groups and focus on his own emotional reaction to his perception of events, healthy coping skills, and a discharge safety plan; all of which thus far he has been unwilling to do. 11/28 - 11/29 -Patient refused PPD, EKG, and chest x-ray for [facility] referral. He is refusing to consider a trial of Invega/MERCADO, and continues to refuse a family meeting. -304 involuntary commitment hearing scheduled for 12/01/2019, and will then pursue referral to the [facility]. 11/30 - 304 involuntary commitment granted today, referral to the [facility] is reportedly supported by the [facility] at this time - Pt was again offered PPD, EKG and CXR for [facility] referral, which he again declined - Although he is not overtly refusing medication changes, he does verbalize desire to give olanzapine "another week" before switching to another agent. 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 He remains delusional and without insight, refusing medication (although getting the IM of Zyprexa daily), a family meeting, or discharge planning/outpatient care. -Recommend referral to [facility] for long-term inpatient treatment, will simultaneously referring for a BCM and working on potential diversion plans. 12/02 - Continue IM olanzapine - as continues to refuse oral medications or discussion regarding alternative agents - Most documentation sent to [facility] for referral - awaiting 303 and 304 findings to be sent and will then fax these as well - Pt continues to decline medical tests generally requested as part of [facility] referral, but cannot force these studies to be done 12/03 -We will increase his dose of IM olanzapine to 12.5 mg at bedtime. The medication thus far does not seem to have had much of a favorable impact on the patient's delusional belief system, and he is not willing to consider antiobsessional medications in the form of a selective serotonin reuptake inhibitor. However, the patient is now sleeping better and his general demeanor has been more calm, more pleasant, and more self-possessed. -The patient reports that he does not feel that he is experiencing any side effects from olanzapine, but fall short of saying that it is helping him in any way, other than perhaps for sleep. He mentions that he sometimes has a pain in his left abdominal wall and lower rib cage that he says he does not feel as a side effect from medication but, rather, the result of his doing sit ups and his bedroom by placing his feet under the mattress and exercising in that way. 12/04 - 12/05 -Zyprexa 12.5 mg IM po qhs, sedation from yesterday seems to be resolving, can likely be increased tomorrow. 12/06 - Continue Zyprexa 12.5mg IM this evening - continue attempts to engage patient in conversation regarding dose increases or consideration of alternative agents - Pt continues to be unwilling to participate in conversation regarding alternative discharge plans to [facility]. He continues to refuse to involve his or any other outpatient support in safety/discharge planning. - Referral to [facility] was completed and is reportedly being reviewed. 12/07 - Titrating Zyprexa 15mg IM - patient continues to refuse offer for oral medications. Pt was offered discussion about alternative agents, but declined. - Referral officially received by [facility] on 12/02/2019 (304 findings to be sent once received) - awaiting response regarding acceptance decision - Continue attempts to engage patient in discharge and safety planning - patient continues to be unwilling to discuss possible diversion plans 12/08 - 12/09 - Continue Zyprexa 15mg IM - pt continuing to refuse oral medications - Awaiting response from [facility] regarding referral - Pt remains unwilling to participate in safety planning or exploring diversion plan 12/10 -Patient is exhibiting excess sedation add Zyprexa 15 mg IM at bedtime. Specifically, the patient is observed to be hypersomnolent, has been sleeping off and on throughout the days, and indicates that he feels that at this higher dose of Zyprexa he is experiencing some cognitive slowing. At the same time, he does not seem to be responding to Zyprexa either at high doses or at low doses, other than it may be contributing to his ability to maintain self possession and avoid these sorts of dyscontroled behaviors that precipitated the current admission (for example, breaking furniture, knocking holes in the mckeon of his home, and tearing out shards of woodwork and ways that frightened his ). -The patient remains delusional and harbors an elaborate persecutory delusional system that he often hits that, but is reluctant to discuss in detail much of the time because he says that he fears that information that he shares with us will fall into the wrong hands and will interfere with his ability to expose those persons who he feels are responsible for the referenced "crimes against humanity." -The patient when asked, convincingly states that he is not having any thoughts of extracting retribution from the individuals and entities that he holds responsible for his delusional construct regarding "crimes against humanity," other than to expose them by publishing proof of their crimes. Specifically, he says that he has no plan to cause physical harm to the person or property of others and says that he will leave the question of punishment to those who are lawful he entitled to impose it. -Because the patient's delusional belief seem not to be responding favorably to olanzapine at the higher dose, and because he is exhibiting some symptoms of excess sedation associated with olanzapine at 15 mg daily, his dose of olanzapine (to be given IM if necessary for refusal of p.o. olanzapine) will be reduced to olanzapine 10 mg IM at bedtime, starting tonight. 12/11 The patient is less sedated at the 10 mg of olanzapine IM he continues to refuse oral medications. Provider did again re-present the role of an SSRI that may help but he is clear and adamant about refusal of all medications. 12/12 - he is slightly less sedated at 10mg olanzapine IM each hs, but is more agitated today that he had been and more profuse with this provider about his delusional beliefs and seeing this provider and all medical care here as passive pawns of a broader conspiracy through the [employer]. He continues to decline oral medications, or any form of aftercare for monitoring of irritability and agitation maintaining that he does not have any mental illness and that all he has is "truth." Presently his risk of continuing to incorporate anyone who disagrees with his delusion into the delusion, his unwillingness to take medications after discharge, and unwillingness to participate any form of routine relationship with a behavioral health provider after discharge, and incorporation of his in his delusional system with prior physical aggression are concerning. I believe ongoing inpatient hospitalization is most appropriate setting for care at this time 12/13 - Continue olanzapine 10mg IM each evening (patient continues to refuse PO medications or discussion regarding alternative agents. - Pt continues to appear sedated, though is spending more time out of his room in the afternoons. - Anticipate decision regarding [facility] referral in the next few days 12/14 - Continue current treatment plan, patient reporting improvement in fatigue today - Anticipate update from [facility] soon regarding decision on referral - Pt continues to be resistant to attempts to safety plan or discuss alternative discharge options 12/15 - Continue current treatment plan - patient reports he is better tolerating lower dose of olanzapine but still reports daytime fatigue - Explanation provided to patient regarding request for MRI, heavy metal studies, B12, and folate - patient is persistent in his unwillingness to have these studies completed at this time - Will attempt to gather more information regarding reports of a previous MRI - Could consider cognitive assessment such as MoCA - as patient was limited in his willingness to even discuss superficial details with this provider, cognitive assessment was not attempted today - Pt went outside with staff this afternoon - continue to offer intermittently and assess the appropriateness of his presentation 12/16 - Continue current treatment plan - olanzapine 10mg qHS. Pt continues to refuse PO medications but tolerates IM injections without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
[2019-12-30] MEDS: OLANZapine 10 MG/2.1 ML SDV IM PRN (22:03)
[2019-12-30] MEDS: OLANZAPINE ZYDIS 5 MG ORALLY DIS. TAB PO SCH (22:19)
[2019-12-31] MEDS: TERBINAFINE CR 30 GM TUBE EXT SCH ×2 (08:35→22:07)
[2019-12-31] MEDS: MULTIVITAMIN PO SCH (08:35)
--- NOTE | 2019-12-31 09:01 | Psychiatric Progress Note ---
Date of Service December 31, 2019 Impression / Recommendations Impression 59-year-old male admitted involuntarily for inpatient psychiatric treatment. Primary diagnosis of delusional disorder, persecutory type. Information provided by his indicates that several years ago certain changes in his department at the [facility] triggered a certain amount of distrust by the patient, which gradually grew into the elaborate, highly systematized delusional belief system that is currently in place. His delusional system was likely amplified by his tendency to obsess, focus on patterns, and look for theoretical explanations. While patient is highly attached to these delusional beliefs and is demonstrating inability/unwillingness to consider they may not be accurate - the primary safety concern surrounding his condition is the fact that he had been demonstrating highly agitated behavior which was threatening the safety of himself and his (throwing furniture at mckeon, ripping off door frames, etc). Although his behavior on the unit has been free of threats and violence, he is refusing to involve his , who reports fear for her safety given his behavior (violence directed at her prior to admission) and the fact that he has implicated her in his delusional system and believes she is conspiring within [place] government against him. Further, he is uncooperative with treatment, is refusing medication (although not resisting when given intramuscular injections of olanzapine), and declining outpatient treatment. This is a difficult and complex situation. The patient's dyscontrol behavior does not seem to be specific to his , and even were he to leave the hospital without going home to his , the behaviors described by his give reason to predict that he would quickly become a danger to himself or other people in the community. He lacks insight, and expresses a firm belief that he is on a mission to protect and save innocent people. His calmer behavior here is also within the context of his taking psychiatric medications, and he has made it abundantly clear that he will not consider taking any psychiatric medication unless it is forced on him in the hospital. 304 extended involuntarily commitment was granted on 11/30, and referral to the [facility] has been sent as he remains a danger to himself and others and is refusing to engage in conversation regarding alternative discharge options. As time has progressed, it appears that he is not responding favorably to olanzapine. He continues to adamantly refuse any type of psychotropic medication voluntarily. At a dose of olanzapine 15 mg intramuscularly at bedtime the patient's behavior on the unit was pleasant and fairly passive (with the exception of increased irritability during meetings with psychiatric providers). However, his delusional belief system remained completely untouched as best we can tell and he began to demonstrate excessive sedation at this higher dose. Does was reduced to 10mg IM on 12/10 with reported improvement in alertness throughout the day. Organic work-up was requested by [facility]; however, patient is unwilling to participate in additional studies (anticipated ordering MRI, heavy metal studies, B12 and folate). We have received word on that the patient was accepted at [facility] - formally placed on wait list on 12/21 with estimated bed date >30 days away. He continues to be incorporating staff a dc psychiatric providers into his delusional system, now verbalizing severe distrust in any attempts to safety plan as he is unwilling to sign any paper work or participate in the steps that would be necessary for discharge home, as he believes the "system" is also controlling these situations as well. He states multiple times during our encounter that additional precautions would need to be taken for the "safety of my " if he were to be discharged home. (1) Delusional disorder: 11/14 Patient admitted on an involuntary status to the behavioral health unit for continued assessment and treatment as indicated He will be maintained on every 15 minute safety checks We will continue to expand database Consider neuroimaging for w/u of psychosis prn orders for Ativan and Haldol today. I suspect it is likely that he will require medications over objection before he permits any treatment due to what appears to be severely impaired insight. Patient will be reevaluated tomorrow for psychiatric second opinion regarding need for treatment over objection. -presently patient requires continued inpatient hospitalization for workup and treatment of psychosis which was been recently associated with some violent behavior at home. he is at risk of harm to self and others if discharged prematurely. 11/15 -File for 303 involuntary commitment. -Patient is refusing to consider medication, but has haloperidol and Ativan as needed ordered. Would recommend a trial of olanzapine, and agree with medications over objection as he has severe psychotic symptoms which are impairing his ability to function and placing both himself and others at risk of harm due to his violent behavior at home. -Patient is refused to answer questions about whether or not he has guns, so we will need to get this information from his . At this point he is refusing to sign a release for her or anyone else. -Excuse patient from groups due to the severity of his psychosis and violent behavior. Medically necessary private room room due to the same. 11/16 - involuntary commitment granted. -Patient continues to refuse to allow his to be involved in treatment. He is now not denying that he was aggressive at home, but is refusing to discuss it, and is focused only on the conspiracy which he says led to his behavior. -Continue to consider medications over objection. At this point, we are attempting to engage the patient in treatment volitionally, and the risk of forcing medications at this time is further alienating him. However, if he is unable to engage in any manner, we will need to reconsider medications over objection. -Patient may attend groups if able to maintain appropriate behavioral contro l. -Patient has still not been willing to complete admission assessments, and has not been willing to provide certain information. 11/17 -Recommend medications over objection, as the patient is unable to engage in treatment due to the severity of his psychosis and lack of insight, and remains at imminent risk of harm to others, specifically his , if his symptoms remai n untreated. He is floridly delusional, now implicating hospital staff in his delusions. He is not able to work as a result of his psychosis, and his is not able to work due to having to supervise him, and is fearful of him given his escalating violence at home. He continues to refuse to allow her to be involved in treatment, is not attending groups, and is refusing to even discuss medicat ion options. Dr. Duarte recommended medications over objection, and I agree, as the patient is unlikely to improve without antipsychotic medication. -Start olanzapine Zydis 5 mg daily, with a 5 mg IM backup for refusal. Order FLP and FG tomorrow for baseline on an atypical antipsychotic. He will also need a medical work-up of psychosis once he is more cooperative, including brain MRI. -Ongoing poor sleep, staff will limit bright lights near his room at night, and if he can be compliant with medication, can move olanzapine to bedtime to assist with sleep. Giving during the day initially to allow for adequate staff in case of need for physical hold or restraint to receive medication. / - Continue olanzapine 5mg daily (offering PO Zydis with IM for refusal) - medications over objection, though patient has been cooperative with his preference for IM administration - Pt offered again PO olanzapine, with the eventual option of converting the medication to HS dosing if he continues to be cooperative - as he reports sedation after receiving the medication - Pt remains delusional and paranoid, unable to discuss examples of how we can assist him during his stay - Maintain MNPR due to level of psychosis - Fasting glucose - wnl at 90; triglycerides elevated at 188, remainder of lipid panel wnl - Continue attempts to coordinate care with patient's 11/19 -Patient is continuing to say that he does not wish for us to speak with his , and he again tells us that he will not sign a consent that will allow us to contact her. As above, his assertion is that he does not want us talking to her because she may tell us things that we will include in the record and that will eventually be used against him, either by the government or by [facility]. As a compromise, the patient says that he will ask his to call us and tell us whether she continues to feel that he is a danger to her, himself, or to anyone else. It was explained that we would also need to be able to talk to her about our concerns and we would need to coordinate aftercare arrangements with her. The patient replied to that by saying simply that he would not allow us to say anything about his care or recommended treatment to her at this time. -There seem to be some early indications that the patient may be responding to olanzapine. Today, when I told him that our concerns about his safety had not to do with his behaviors here in the hospital but, instead, about his behaviors at home (in the community) he quickly responded, "yes, but I am getting medication here!" (He almost immediately realized the implication of what he had just said, and he immediately changed the subject and began talking about how various entities were deliberately provoking him into losing his temper and acting in anger. -The patient tells us that he is using the fact that he has been given intramuscular medications against his will as evidence of our being the "dupes" or agents of the entities behind the conspiracy to silence him. He also reiterates that he believes that taking medication voluntarily is tantamount to acknowledging his need for psychiatric treatment, and he tells us that he has absolutely no psychiatric problem at all and does not need any treatment. -Today, we are increasing his olanzapine's as follows. We will begin olanzapine ODT 10 mg at bedtime starting tonight. We have also changed his order for medications over objection to olanzapine 10 mg IM daily for refusal of p.o. olanzapine. -Although the patient's presentation has many of the symptoms of a delusional disorder, persecutory typegiven the elaborate nature of the delusional system, we continue to suspect that what we are seeing is a somewhat atypical jorge, or discrete manic episodes overlaying a underlying delusional disorder. If the explanation for the patient's presentation is symptoms of a manic episode, his prognosis is better. We discussed the possibility of adding an antiobsessional medication which sometimes helps with pure delusional disorders, but the patient says that, absolutely, he will not take any medication that we offer him voluntarily. 11/22--continue Zyprexa IM hs, continues to refuse family meeting with due to paranoia, refuses 2-3 trial of PO Invega to convert to injectable. 11/23--File for 304 hearing d/t ongoing psychosis, lack of insight, refusal for outpatient treatment or ongoing medication, refusal to involve , and high risk for return to violent behavior if home w/ , whom he believes is part of the conspiracy against him. 11/24 - Continue olanzapine IM, continuing to offer patient PO medication which he is consistently refusing - Pt continues to refuse to involve in conversations regarding discharge and safety planning - 304 hearing scheduled for 11/30; pt continues to be psychotic and remains unable to engage in productive safety and discharge planing, therefore remains at high risk of harm to sefl or others if he is discharged home in his current state 11/25 - Titrating olanzapine to 10mg daily; patient continues to refuse offer for PO and is therefore continuing to receive IM injections each evening - 304 hearing 11/30; pt continues to be unwilling to participate in safety and discharge planning efforts 11/26 -The patient tells me that he received olanzapine 10 mg last evening and says that he feels that it has helped him sleep better. However, he notes that his sleep difficulty is related to the fact that his sleep schedule in the hospital is substantially different from the one that he is used to at home, with bedtime here at the hospital being 3 or 4 hours earlier than he is used to. Nevertheless, he says that he believes that he is not having any side effects from olanzapine and that, in the sense that it does help him fall asleep, it helps. Nevertheless, he also repeats today that he will not continue to take any medication, including olanzapine, if he is discharged. -I spoke with the patient's today, without disclosing any protected clinical data regarding the patient. She acknowledges that he frightens her, and, particularly recently, has caused her to fear for her personal physical safety. At the same time, she says tells me that she thinks that if she gets some advice about how best to "handle somebody who is delusional" possibly by getting into individual therapy, herself, she may be able to take him home. She also reports that should he be released (she is aware of upcoming hearing) that she will agree to take him home, because she loves him and wants to protect him, but continues to fear that he may again lose control of his behavior as a function of his delusions. -Today, the patient tells me that he recognizes that in his upcoming hearing on 11/30 (304) the issue may boil down to whether he can assure that he will be safe in the community and will not represent a risk to anyone else, even if he does not take medication. He also says that he recognizes the "Catch-22" that he is in because he realizes that the hospital is likely to say that his behavior in the hospital has been positively influenced by his taking olanzapine, and that without the structure of the hospital and without the medications, he may revert to the dangerous behaviors that precipitated the admission. -Of concern is the fact that the patient's tells us today that, effective yesterday, he has told her that he will no longer speak to her telephonically, and if he is released from the hospital on Saturday he will simply walk home, and if she is not comfortable being home with him she should leave. However, by the end of today he is allowing that he truly believes that his loves him and would not try to harm him if she had any choice, so he is at least considering contacting her again by telephone. 11/27 -Patient informed of 304 hearing and plan to refer to the [facility], as well as additional labs needed for that referral. -He continues to refuse a family meeting with his , who has expressed ongoing concern for her safety. He continues to refuse p.o. medication, outpatient treatment, and discussion of his aggression at home or plans to mitigate it. He remains at risk of harm to others, particularly his , and if discharged prematurely, as she is implicated in his delusion and he believes she has part of the conspiracy against him. -Encourage the patient to attend groups and focus on his own emotional reaction to his perception of events, healthy coping skills, and a discharge safety plan; all of which thus far he has been unwilling to do. 11/28 - 11/29 -Patient refused PPD, EKG, and chest x-ray for [facility] referral. He is refusing to consider a trial of Invega/MERCADO, and continues to refuse a family meeting. -304 involuntary commitment hearing scheduled for 12/01/2019, and will then pursue referral to the [facility]. 11/30 - 304 involuntary commitment granted today, referral to the [facility] is reportedly supported by the [facility] at this time - Pt was again offered PPD, EKG and CXR for [facility] referral, which he again declined - Although he is not overtly refusing medication changes, he does verbalize desire to give olanzapine "another week" before switching to another agent. 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 He remains delusional and without insight, refusing medication (although getting the IM of Zyprexa daily), a family meeting, or discharge planning/outpatient care. -Recommend referral to [facility] for long-term inpatient treatment, will simultaneously referring for a BCM and working on potential diversion plans. 12/02 - Continue IM olanzapine - as continues to refuse oral medications or discussion regarding alternative agents - Most documentation sent to [facility] for referral - awaiting 303 and 304 findings to be sent and will then fax these as well - Pt continues to decline medical tests generally requested as part of [facility] referral, but cannot force these studies to be done 12/03 -We will increase his dose of IM olanzapine to 12.5 mg at bedtime. The medication thus far does not seem to have had much of a favorable impact on the patient's delusional belief system, and he is not willing to consider antiobsessional medications in the form of a selective serotonin reuptake inhibitor. However, the patient is now sleeping better and his general demeanor has been more calm, more pleasant, and more self-possessed. -The patient reports that he does not feel that he is experiencing any side effects from olanzapine, but fall short of saying that it is helping him in any way, other than perhaps for sleep. He mentions that he sometimes has a pain in his left abdominal wall and lower rib cage that he says he does not feel as a side effect from medication but, rather, the result of his doing sit ups and his bedroom by placing his feet under the mattress and exercising in that way. 12/04 - 12/05 -Zyprexa 12.5 mg IM po qhs, sedation from yesterday seems to be resolving, can likely be increased tomorrow. 12/06 - Continue Zyprexa 12.5mg IM this evening - continue attempts to engage patient in conversation regarding dose increases or consideration of alternative agents - Pt continues to be unwilling to participate in conversation regarding alternative discharge plans to [facility]. He continues to refuse to involve his or any other outpatient support in safety/discharge planning. - Referral to [facility] was completed and is reportedly being reviewed. 12/07 - Titrating Zyprexa 15mg IM - patient continues to refuse offer for oral medications. Pt was offered discussion about alternative agents, but declined. - Referral officially received by [facility] on 12/02/2019 (304 findings to be sent once received) - awaiting response regarding acceptance decision - Continue attempts to engage patient in discharge and safety planning - patient continues to be unwilling to discuss possible diversion plans 12/08 - 12/09 - Continue Zyprexa 15mg IM - pt continuing to refuse oral medications - Awaiting response from [facility] regarding referral - Pt remains unwilling to participate in safety planning or exploring diversion plan 12/10 -Patient is exhibiting excess sedation add Zyprexa 15 mg IM at bedtime. Specifically, the patient is observed to be hypersomnolent, has been sleeping off and on throughout the days, and indicates that he feels that at this higher dose of Zyprexa he is experiencing some cognitive slowing. At the same time, he does not seem to be responding to Zyprexa either at high doses or at low doses, other than it may be contributing to his ability to maintain self possession and avoid these sorts of dyscontroled behaviors that precipitated the current admission (for example, breaking furniture, knocking holes in the mckeon of his home, and tearing out shards of woodwork and ways that frightened his ). -The patient remains delusional and harbors an elaborate persecutory delusional system that he often hits that, but is reluctant to discuss in detail much of the time because he says that he fears that information that he shares with us will fall into the wrong hands and will interfere with his ability to expose those persons who he feels are responsible for the referenced "crimes against humanity." -The patient when asked, convincingly states that he is not having any thoughts of extracting retribution from the individuals and entities that he holds responsible for his delusional construct regarding "crimes against humanity," other than to expose them by publishing proof of their crimes. Specifically, he says that he has no plan to cause physical harm to the person or property of others and says that he will leave the question of punishment to those who are lawful he entitled to impose it. -Because the patient's delusional belief seem not to be responding favorably to olanzapine at the higher dose, and because he is exhibiting some symptoms of excess sedation associated with olanzapine at 15 mg daily, his dose of olanzapine (to be given IM if necessary for refusal of p.o. olanzapine) will be reduced to olanzapine 10 mg IM at bedtime, starting tonight. 12/11 The patient is less sedated at the 10 mg of olanzapine IM he continues to refuse oral medications. Provider did again re-present the role of an SSRI that may help but he is clear and adamant about refusal of all medications. 12/12 - he is slightly less sedated at 10mg olanzapine IM each hs, but is more agitated today that he had been and more profuse with this provider about his delusional beliefs and seeing this provider and all medical care here as passive pawns of a broader conspiracy through the [employer]. He continues to decline oral medications, or any form of aftercare for monitoring of irritability and agitation maintaining that he does not have any mental illness and that all he has is "truth." Presently his risk of continuing to incorporate anyone who disagrees with his delusion into the delusion, his unwillingness to take medications after discharge, and unwillingness to participate any form of routine relationship with a behavioral health provider after discharge, and incorporation of his in his delusional system with prior physical aggression are concerning. I believe ongoing inpatient hospitalization is most appropriate setting for care at this time 12/13 - Continue olanzapine 10mg IM each evening (patient continues to refuse PO medications or discussion regarding alternative agents. - Pt continues to appear sedated, though is spending more time out of his room in the afternoons. - Anticipate decision regarding [facility] referral in the next few days 12/14 - Continue current treatment plan, patient reporting improvement in fatigue today - Anticipate update from [facility] soon regarding decision on referral - Pt continues to be resistant to attempts to safety plan or discuss alternative discharge options 12/15 - Continue current treatment plan - patient reports he is better tolerating lower dose of olanzapine but still reports daytime fatigue - Explanation provided to patient regarding request for MRI, heavy metal studies, B12, and folate - patient is persistent in his unwillingness to have these studies completed at this time - Will attempt to gather more information regarding reports of a previous MRI - Could consider cognitive assessment such as MoCA - as patient was limited in his willingness to even discuss superficial details with this provider, cognitive assessment was not attempted today - Pt went outside with staff this afternoon - continue to offer intermittently and assess the appropriateness of his presentation 12/16 - Continue current treatment plan - olanzapine 10mg qHS. Pt continues to refuse PO medications but tolerates IM injections without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
[2019-12-31] MEDS: OLANZapine 10 MG/2.1 ML SDV IM PRN (22:08)
[2019-12-31] MEDS: OLANZAPINE ZYDIS 5 MG ORALLY DIS. TAB PO SCH (22:39)
[2020-01-01] MEDS: MULTIVITAMIN PO SCH (09:10)
[2020-01-01] MEDS: TERBINAFINE CR 30 GM TUBE EXT SCH ×3 (09:11→21:10)
--- NOTE | 2020-01-01 09:14 | Psychiatric Progress Note ---
Date of Service January 01, 2020 Impression / Recommendations Impression 59-year-old male admitted involuntarily for inpatient psychiatric treatment. Primary diagnosis of delusional disorder, persecutory type. Information provided by his indicates that several years ago certain changes in his department at the [facility] triggered a certain amount of distrust by the patient, which gradually grew into the elaborate, highly systematized delusional belief system that is currently in place. His delusional system was likely amplified by his tendency to obsess, focus on patterns, and look for theoretical explanations. While patient is highly attached to these delusional beliefs and is demonstrating inability/unwillingness to consider they may not be accurate - the primary safety concern surrounding his condition is the fact that he had been demonstrating highly agitated behavior which was threatening the safety of himself and his (throwing furniture at mckeon, ripping off door frames, etc). Although his behavior on the unit has been free of threats and violence, he is refusing to involve his , who reports fear for her safety given his behavior (violence directed at her prior to admission) and the fact that he has implicated her in his delusional system and believes she is conspiring within [place] government against him. Further, he is uncooperative with treatment, is refusing medication (although not resisting when given intramuscular injections of olanzapine), and declining outpatient treatment. This is a difficult and complex situation. The patient's dyscontrol behavior does not seem to be specific to his , and even were he to leave the hospital without going home to his , the behaviors described by his give reason to predict that he would quickly become a danger to himself or other people in the community. He lacks insight, and expresses a firm belief that he is on a mission to protect and save innocent people. His calmer behavior here is also within the context of his taking psychiatric medications, and he has made it abundantly clear that he will not consider taking any psychiatric medication unless it is forced on him in the hospital. 304 extended involuntarily commitment was granted on 11/30, and referral to the [facility] has been sent as he remains a danger to himself and others and is refusing to engage in conversation regarding alternative discharge options. As time has progressed, it appears that he is not responding favorably to olanzapine. He continues to adamantly refuse any type of psychotropic medication voluntarily. At a dose of olanzapine 15 mg intramuscularly at bedtime the patient's behavior on the unit was pleasant and fairly passive (with the exception of increased irritability during meetings with psychiatric providers). However, his delusional belief system remained completely untouched as best we can tell and he began to demonstrate excessive sedation at this higher dose. Does was reduced to 10mg IM on 12/10 with reported improvement in alertness throughout the day. Organic work-up was requested by [facility]; however, patient is unwilling to participate in additional studies (anticipated ordering MRI, heavy metal studies, B12 and folate). We have received word on that the patient was accepted at [facility] - formally placed on wait list on 12/21 with estimated bed date >30 days away. He continues to be incorporating staff a ut psychiatric providers into his delusional system, now verbalizing severe distrust in any attempts to safety plan as he is unwilling to sign any paper work or participate in the steps that would be necessary for discharge home, as he believes the "system" is also controlling these situations as well. He states multiple times during our encounter that additional precautions would need to be taken for the "safety of my " if he were to be discharged home. (1) Delusional disorder: 11/14 Patient admitted on an involuntary status to the behavioral health unit for continued assessment and treatment as indicated He will be maintained on every 15 minute safety checks We will continue to expand database Consider neuroimaging for w/u of psychosis prn orders for Ativan and Haldol today. I suspect it is likely that he will require medications over objection before he permits any treatment due to what appears to be severely impaired insight. Patient will be reevaluated tomorrow for psychiatric second opinion regarding need for treatment over objection. -presently patient requires continued inpatient hospitalization for workup and treatment of psychosis which was been recently associated with some violent behavior at home. he is at risk of harm to self and others if discharged prematurely. 11/15 -File for 303 involuntary commitment. -Patient is refusing to consider medication, but has haloperidol and Ativan as needed ordered. Would recommend a trial of olanzapine, and agree with medications over objection as he has severe psychotic symptoms which are impairing his ability to function and placing both himself and others at risk of harm due to his violent behavior at home. -Patient is refused to answer questions about whether or not he has guns, so we will need to get this information from his . At this point he is refusing to sign a release for her or anyone else. -Excuse patient from groups due to the severity of his psychosis and violent behavior. Medically necessary private room room due to the same. 11/16 - involuntary commitment granted. -Patient continues to refuse to allow his to be involved in treatment. He is now not denying that he was aggressive at home, but is refusing to discuss it, and is focused only on the conspiracy which he says led to his behavior. -Continue to consider medications over objection. At this point, we are attempting to engage the patient in treatment volitionally, and the risk of forcing medications at this time is further alienating him. However, if he is unable to engage in any manner, we will need to reconsider medications over objection. -Patient may attend groups if able to maintain appropriate behavioral contro l. -Patient has still not been willing to complete admission assessments, and has not been willing to provide certain information. 11/17 -Recommend medications over objection, as the patient is unable to engage in treatment due to the severity of his psychosis and lack of insight, and remains at imminent risk of harm to others, specifically his , if his symptoms remai n untreated. He is floridly delusional, now implicating hospital staff in his delusions. He is not able to work as a result of his psychosis, and his is not able to work due to having to supervise him, and is fearful of him given his escalating violence at home. He continues to refuse to allow her to be involved in treatment, is not attending groups, and is refusing to even discuss medicat ion options. Dr. Duarte recommended medications over objection, and I agree, as the patient is unlikely to improve without antipsychotic medication. -Start olanzapine Zydis 5 mg daily, with a 5 mg IM backup for refusal. Order FLP and FG tomorrow for baseline on an atypical antipsychotic. He will also need a medical work-up of psychosis once he is more cooperative, including brain MRI. -Ongoing poor sleep, staff will limit bright lights near his room at night, and if he can be compliant with medication, can move olanzapine to bedtime to assist with sleep. Giving during the day initially to allow for adequate staff in case of need for physical hold or restraint to receive medication. / - Continue olanzapine 5mg daily (offering PO Zydis with IM for refusal) - medications over objection, though patient has been cooperative with his preference for IM administration - Pt offered again PO olanzapine, with the eventual option of converting the medication to HS dosing if he continues to be cooperative - as he reports sedation after receiving the medication - Pt remains delusional and paranoid, unable to discuss examples of how we can assist him during his stay - Maintain MNPR due to level of psychosis - Fasting glucose - wnl at 90; triglycerides elevated at 188, remainder of lipid panel wnl - Continue attempts to coordinate care with patient's 11/19 -Patient is continuing to say that he does not wish for us to speak with his , and he again tells us that he will not sign a consent that will allow us to contact her. As above, his assertion is that he does not want us talking to her because she may tell us things that we will include in the record and that will eventually be used against him, either by the government or by [facility]. As a compromise, the patient says that he will ask his to call us and tell us whether she continues to feel that he is a danger to her, himself, or to anyone else. It was explained that we would also need to be able to talk to her about our concerns and we would need to coordinate aftercare arrangements with her. The patient replied to that by saying simply that he would not allow us to say anything about his care or recommended treatment to her at this time. -There seem to be some early indications that the patient may be responding to olanzapine. Today, when I told him that our concerns about his safety had not to do with his behaviors here in the hospital but, instead, about his behaviors at home (in the community) he quickly responded, "yes, but I am getting medication here!" (He almost immediately realized the implication of what he had just said, and he immediately changed the subject and began talking about how various entities were deliberately provoking him into losing his temper and acting in anger. -The patient tells us that he is using the fact that he has been given intramuscular medications against his will as evidence of our being the "dupes" or agents of the entities behind the conspiracy to silence him. He also reiterates that he believes that taking medication voluntarily is tantamount to acknowledging his need for psychiatric treatment, and he tells us that he has absolutely no psychiatric problem at all and does not need any treatment. -Today, we are increasing his olanzapine's as follows. We will begin olanzapine ODT 10 mg at bedtime starting tonight. We have also changed his order for medications over objection to olanzapine 10 mg IM daily for refusal of p.o. olanzapine. -Although the patient's presentation has many of the symptoms of a delusional disorder, persecutory typegiven the elaborate nature of the delusional system, we continue to suspect that what we are seeing is a somewhat atypical jorge, or discrete manic episodes overlaying a underlying delusional disorder. If the explanation for the patient's presentation is symptoms of a manic episode, his prognosis is better. We discussed the possibility of adding an antiobsessional medication which sometimes helps with pure delusional disorders, but the patient says that, absolutely, he will not take any medication that we offer him voluntarily. 11/22--continue Zyprexa IM hs, continues to refuse family meeting with due to paranoia, refuses 2-3 trial of PO Invega to convert to injectable. 11/23--File for 304 hearing d/t ongoing psychosis, lack of insight, refusal for outpatient treatment or ongoing medication, refusal to involve , and high risk for return to violent behavior if home w/ , whom he believes is part of the conspiracy against him. 11/24 - Continue olanzapine IM, continuing to offer patient PO medication which he is consistently refusing - Pt continues to refuse to involve in conversations regarding discharge and safety planning - 304 hearing scheduled for 11/30; pt continues to be psychotic and remains unable to engage in productive safety and discharge planing, therefore remains at high risk of harm to sefl or others if he is discharged home in his current state 11/25 - Titrating olanzapine to 10mg daily; patient continues to refuse offer for PO and is therefore continuing to receive IM injections each evening - 304 hearing 11/30; pt continues to be unwilling to participate in safety and discharge planning efforts 11/26 -The patient tells me that he received olanzapine 10 mg last evening and says that he feels that it has helped him sleep better. However, he notes that his sleep difficulty is related to the fact that his sleep schedule in the hospital is substantially different from the one that he is used to at home, with bedtime here at the hospital being 3 or 4 hours earlier than he is used to. Nevertheless, he says that he believes that he is not having any side effects from olanzapine and that, in the sense that it does help him fall asleep, it helps. Nevertheless, he also repeats today that he will not continue to take any medication, including olanzapine, if he is discharged. -I spoke with the patient's today, without disclosing any protected clinical data regarding the patient. She acknowledges that he frightens her, and, particularly recently, has caused her to fear for her personal physical safety. At the same time, she says tells me that she thinks that if she gets some advice about how best to "handle somebody who is delusional" possibly by getting into individual therapy, herself, she may be able to take him home. She also reports that should he be released (she is aware of upcoming hearing) that she will agree to take him home, because she loves him and wants to protect him, but continues to fear that he may again lose control of his behavior as a function of his delusions. -Today, the patient tells me that he recognizes that in his upcoming hearing on 11/30 (304) the issue may boil down to whether he can assure that he will be safe in the community and will not represent a risk to anyone else, even if he does not take medication. He also says that he recognizes the "Catch-22" that he is in because he realizes that the hospital is likely to say that his behavior in the hospital has been positively influenced by his taking olanzapine, and that without the structure of the hospital and without the medications, he may revert to the dangerous behaviors that precipitated the admission. -Of concern is the fact that the patient's tells us today that, effective yesterday, he has told her that he will no longer speak to her telephonically, and if he is released from the hospital on Saturday he will simply walk home, and if she is not comfortable being home with him she should leave. However, by the end of today he is allowing that he truly believes that his loves him and would not try to harm him if she had any choice, so he is at least considering contacting her again by telephone. 11/27 -Patient informed of 304 hearing and plan to refer to the [facility], as well as additional labs needed for that referral. -He continues to refuse a family meeting with his , who has expressed ongoing concern for her safety. He continues to refuse p.o. medication, outpatient treatment, and discussion of his aggression at home or plans to mitigate it. He remains at risk of harm to others, particularly his , and if discharged prematurely, as she is implicated in his delusion and he believes she has part of the conspiracy against him. -Encourage the patient to attend groups and focus on his own emotional reaction to his perception of events, healthy coping skills, and a discharge safety plan; all of which thus far he has been unwilling to do. 11/28 - 11/29 -Patient refused PPD, EKG, and chest x-ray for [facility] referral. He is refusing to consider a trial of Invega/MERCADO, and continues to refuse a family meeting. -304 involuntary commitment hearing scheduled for 12/01/2019, and will then pursue referral to the [facility]. 11/30 - 304 involuntary commitment granted today, referral to the [facility] is reportedly supported by the [facility] at this time - Pt was again offered PPD, EKG and CXR for [facility] referral, which he again declined - Although he is not overtly refusing medication changes, he does verbalize desire to give olanzapine "another week" before switching to another agent. 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 He remains delusional and without insight, refusing medication (although getting the IM of Zyprexa daily), a family meeting, or discharge planning/outpatient care. -Recommend referral to [facility] for long-term inpatient treatment, will simultaneously referring for a BCM and working on potential diversion plans. 12/02 - Continue IM olanzapine - as continues to refuse oral medications or discussion regarding alternative agents - Most documentation sent to [facility] for referral - awaiting 303 and 304 findings to be sent and will then fax these as well - Pt continues to decline medical tests generally requested as part of [facility] referral, but cannot force these studies to be done 12/03 -We will increase his dose of IM olanzapine to 12.5 mg at bedtime. The medication thus far does not seem to have had much of a favorable impact on the patient's delusional belief system, and he is not willing to consider antiobsessional medications in the form of a selective serotonin reuptake inhibitor. However, the patient is now sleeping better and his general demeanor has been more calm, more pleasant, and more self-possessed. -The patient reports that he does not feel that he is experiencing any side effects from olanzapine, but fall short of saying that it is helping him in any way, other than perhaps for sleep. He mentions that he sometimes has a pain in his left abdominal wall and lower rib cage that he says he does not feel as a side effect from medication but, rather, the result of his doing sit ups and his bedroom by placing his feet under the mattress and exercising in that way. 12/04 - 12/05 -Zyprexa 12.5 mg IM po qhs, sedation from yesterday seems to be resolving, can likely be increased tomorrow. 12/06 - Continue Zyprexa 12.5mg IM this evening - continue attempts to engage patient in conversation regarding dose increases or consideration of alternative agents - Pt continues to be unwilling to participate in conversation regarding alternative [facility]. He continues to refuse to involve his or any other outpatient support in safety/discharge planning. - Referral to [facility] was completed and is reportedly being reviewed. 12/07 - Titrating Zyprexa 15mg IM - patient continues to refuse offer for oral medications. Pt was offered discussion about alternative agents, but declined. - Referral officially received by [facility] on 12/02/2019 (304 findings to be sent once received) - awaiting response regarding acceptance decision - Continue attempts to engage patient in discharge and safety planning - patient continues to be unwilling to discuss possible diversion plans 12/08 - 12/09 - Continue Zyprexa 15mg IM - pt continuing to refuse oral medications - Awaiting response from [facility] regarding referral - Pt remains unwilling to participate in safety planning or exploring diversion plan 12/10 -Patient is exhibiting excess sedation add Zyprexa 15 mg IM at bedtime. Specifically, the patient is observed to be hypersomnolent, has been sleeping off and on throughout the days, and indicates that he feels that at this higher dose of Zyprexa he is experiencing some cognitive slowing. At the same time, he does not seem to be responding to Zyprexa either at high doses or at low doses, other than it may be contributing to his ability to maintain self possession and avoid these sorts of dyscontroled behaviors that precipitated the current admission (for example, breaking furniture, knocking holes in the [place]ckeon of his home, and tearing out shards of woodwork and ways that frightened his ). -The patient remains delusional and harbors an elaborate persecutory delusional system that he often hits that, but is reluctant to discuss in detail much of the time because he says that he fears that information that he shares with us will fall into the wrong hands and will interfere with his ability to expose those persons who he feels are responsible for the referenced "crimes against humanity." -The patient when asked, convincingly states that he is not having any thoughts of extracting retribution from the individuals and entities that he holds responsible for his delusional construct regarding "crimes against humanity," other than to expose them by publishing proof of their crimes. Specifically, he says that he has no plan to cause physical harm to the person or property of others and says that he will leave the question of punishment to those who are lawful he entitled to impose it. -Because the patient's delusional belief seem not to be responding favorably to olanzapine at the higher dose, and because he is exhibiting some symptoms of excess sedation associated with olanzapine at 15 mg daily, his dose of olanzapine (to be given IM if necessary for refusal of p.o. olanzapine) will be reduced to olanzapine 10 mg IM at bedtime, starting tonight. 12/11 The patient is less sedated at the 10 mg of olanzapine IM he continues to refuse oral medications. Provider did again re-present the role of an SSRI that may help but he is clear and adamant about refusal of all medications. 12/12 - he is slightly less sedated at 10mg olanzapine IM each hs, but is more agitated today that he had been and more profuse with this provider about his delusional beliefs and seeing this provider and all medical care here as passive pawns of a broader conspiracy through the [employer]. He continues to decline oral medications, or any form of aftercare for monitoring of irritability and agitation maintaining that he does not have any mental illness and that all he has is "truth." Presently his risk of continuing to incorporate anyone who disagrees with his delusion into the delusion, his unwillingness to take medications after discharge, and unwillingness to participate any form of routine relationship with a behavioral health provider after discharge, and incorporation of his in his delusional system with prior physical aggression are concerning. I believe ongoing inpatient hospitalization is most appropriate setting for care at this time 12/13 - Continue olanzapine 10mg IM each evening (patient continues to refuse PO medications or discussion regarding alternative agents. - Pt continues to appear sedated, though is spending more time out of his room in the afternoons. - Anticipate decision regarding [facility] referral in the next few days 12/14 - Continue current treatment plan, patient reporting improvement in fatigue today - Anticipate update from [facility] soon regarding decision on referral - Pt continues to be resistant to attempts to safety plan or discuss alternative discharge options 12/15 - Continue current treatment plan - patient reports he is better tolerating lower dose of olanzapine but still reports daytime fatigue - Explanation provided to patient regarding request for MRI, heavy metal studies, B12, and folate - patient is persistent in his unwillingness to have these studies completed at this time - Will attempt to gather more information regarding reports of a previous MRI - Could consider cognitive assessment such as MoCA - as patient was limited in his willingness to even discuss superficial details with this provider, cognitive assessment was not attempted today - Pt went outside with staff this afternoon - continue to offer intermittently and assess the appropriateness of his presentation 12/16 - Continue current treatment plan - olanzapine 10mg qHS. Pt continues to refuse PO medications but tolerates IM injections without incident - Pt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
--- NOTE | 2020-01-01 18:32 | Psychiatric Progress Note ---
Date of Service January 01, 2020 Impression / Recommendations Impression Today's encounter feels like a breakthrough of sorts. While the patient continues to harbor his fixed delusional believes, he is now able to discuss options that may allow us to divert long-term psychiatric hospitalization. He is no longer completely externalizing responsibility for the violent behaviors directed towards property that precipitated the current admission. Instead, he continues to say that he periodically lost his temper with because, but understands that is not the same thing as having no responsibility for loss of self-control. He clearly articulates today that he has done a lot of thinking while in the hospital and 1 of the things he is come to realize is that he actually cannot control his anger and his behavior when motivated to do so. He notes that he has been motivated to maintain self possession of the hospital, and acknowledges that he was terrifying his by losing control of his temper and behavior at home in her presence. Accordingly, he convincingly says that he expects that he will continue to find sources of irritation and perhaps even deliberate harassment should he return home, but that he is fully committed to not acting on these emotions in any way that would frighten people or would result in property damage. The patient tells me that he has considered alternatives to the behaviors in which he had been engaged prior to the admission, and these include leaving the house until he is able to calm down, and occupying himself with his various math problems (a coping strategy that he is used here in the hospital). He also says that he will consider relocating with his to another part of the [facility], and has considered moving to [place] with his so that the 2 can be closer to his brother. In considering this case, and given his 's report (and his own report) that his mother is a very controlling individual who simply discounts or rolls over the choices and desires of other people in favor of compelling that which she believes is best, it seems clear to me that themes of the patient's delusions fit fairly tightly with what one can assume about his childhood and adolescence. When I noticed today was that the minute I told him that I would agree to hold his medications if he thought that was a good idea at this point the patient's affect brightened dramatically, he became much more forthcoming, much more trusting, and registered when I would describe as a sense of relief and triumph. 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 His delusions regarding the [place] and [place] government's also includes similar themes with strong beliefs that others are making adverse decisions that do not take into account the opinions and wisdom of other people. The patient's told me today that she would like for her to be able to come home. Her goal is for the 2 of them to move to [place] so that they could be near her [id number], the patient's brother. She tells me that she never feared that the patient was going to deliberately physically hurt her, but she was afraid that he might accidentally hurt her when he lost control and began breaking objects and smashing the mckeon. She tells me that if he cannot control this behavior, she is certainly willing to live with his delusional beliefs and avoid confronting him about them, provided that he understands that he simply cannot lose his temper, break objects, and scream. Of note is the fact that the patient, himself, acknowledges that this is something that he absolutely needs to do in order to be able to return home. I am now hopeful that we will be able to work with the patient and his in order to diverted admission to the [facility]. The patient tells me that he would be willing to "check in" with Dr. Garcia or another psychiatrist once a month, with his 's participation, as a way of monitoring his condition in the community w [facility]. He notes that he wishes that it would be possible for the 2 of them to come to the hospital once a month to be assessed, but understands that this is not something that is possible for a number of reasons. I do not believe that it is likely that the patient will ever agree to take psychiatric medication in the community, although today he was willing to at least listen to alternative treatments for delusional disorder, such as antiobsessional medications and anxiolytics. His order for oral and intramuscular olanzapine, the latter to be given over objection for refusal of oral olanzapine has been suspended for the weekend. The patient understands that the treatment team may decide next week to restart olanzapine, and the patient assures me that he will understand if that is the team's decision, but that he is hoping to prove that he can control himself without medication. He also says that he understands that we need assurances from his that she both she and he will be safe should he return to the community, even if he is not taking psychiatric medications. (1) Delusional disorder: 11/14 Patient admitted on an involuntary status to the behavioral health unit for continued assessment and treatment as indicated He will be maintained on every 15 minute safety checks We will continue to expand database Consider neuroimaging for w/u of psychosis prn orders for Ativan and Haldol today. I suspect it is likely that he will require medications over objection before he permits any treatment due to what a ppears to be severely impaired insight. Patient will be reevaluated tomorrow for psychiatric second opinion regarding need for treatment over objection. -presently patient requires continued inpatient hospitalization for workup and treatment of psychosis which was been recently associated with some violent behavior at home. he is at risk of harm to self and others if discharged prematurely. 11/15 -File for 303 involuntary commitment. -Patient is refusing to consider medication, but has haloperidol and Ativan as needed ordered. Would recommend a trial of olanzapine, and agree with medi cations over objection as he has severe psychotic symptoms which are impairing his ability to function and placing both himself and others at risk of harm due to his violent behavior at home. -Patient is refused to answer questions about whether or not he has guns, so we will need to get this information from his . At this point he is refusing to sign a release for her or anyone else. -Excuse patient from groups due to the severity of his psychosis and violent behavior. Medically necessary private room room due to the same. 11/16 -303 involuntary commitment granted. -Patient continues to refuse to allow his to be involved in treatment. He is now not denying that he was aggressive at home, but is refusing to discuss it, and is focused only on the conspiracy which he says led to his behavior. -Continue to consider medications over objection. At this point, we are attempting to engage the patient in treatment volitionally, and the risk of forcing medications at this time is further alienating him. However, if he is unable to engage in any manner, we will need to reconsider medications over objection. -Patient may attend groups if able to maintain appropriate behavioral control. -Patient has still not been willing to complete admission assessments, and has not been willing to provide certain information. 4/ -Recommend medications over objection, as the patient is unable to engage in treatment due to the severity of his psychosis and lack of insight, and remains at imminent risk of harm to others, specifically his , if his symptoms remain untreated. He is floridly delusional, now implicating hospital staff in his delusions. He is not able to work as a result of his psychosis, and his is not able to work due to having to supervise him, and is fearful of him given his escalating violence at home. He continues to refuse to allow her to be involved in treatment, is not attending groups, and is refusing to even disc uss medication options. Dr. Duarte recommended medications over objection, and I agree, as the patient is unlikely to improve without antipsychotic medication. -Start olanzapine Zydis 5 mg daily, with a 5 mg IM backup for refusal. Order FLP and FG tomorrow for baseline on an atypical antipsychotic. He will also need a medical work-up of psychosis once he is more cooperative, including brain MRI. -Ongoing poor sleep, staff will limit bright lights near his room at night, and if he can be compliant with medication, can move olanzapine to bedtime to assist with sleep. Giving during the day initially to allow for adequate staff in case of need for physical hold or restraint to receive medication. 11/18 - Continue olanzapine 5mg daily (offering PO Zydis with IM for refusal) - medications over objection, though patient has been cooperative with his preference for IM administration - Pt offered again PO olanzapine, with the eventual option of converting the medication to HS dosing if he continues to be cooperative - as he reports sedation after receiving the medication - Pt remains delusional and paranoid, unable to discuss examples of how we can assist him during his stay - Maintain MNPR due to level of psychosis - Fasting glucose - wnl at 90; triglycerides elevated at 188, remainder of lipid panel wnl - Continue attempts to coordinate care with patient's 4/3 -Patient is continuing to say that he does not wish for us to speak with his , and he again tells us that he will not sign a consent that will allow us to contact her. As above, his assertion is that he does not want us talking to her because she may tell us things that we will include in the record and that will eventually be used against him, either by the government or by [facility]. As a compromise, the patient says that he will ask his to call us and tell us whether she continues to feel that he is a danger to her, himself, or to anyone else. It was explained that we would also need to be able to talk to her about our concerns and we would need to coordinate aftercare arrangements with her. The patient replied to that by saying simply that he would not allow us to say anything about his care or recommended treatment to her at this time. -There seem to be some early indications that the patient may be responding to olanzapine. Today, when I told him that our concerns about his safety had not to do with his behaviors here in the hospital but, instead, about his behaviors at home (in the community) he quickly responded, "yes, but I am getting medication here!" (He almost immediately realized the implication of what he had just said, and he immediately changed the subject and began talking about how various entities were deliberately provoking him into losing his temper and acting in anger. -The patient tells us that he is using the fact that he has been given intramuscular medications against his will as evidence of our being the "dupes" or agents of the entities behind the conspiracy to silence him. He also reiterates that he believes that taking medication voluntarily is tantamount to acknowledging his need for psychiatric treatment, and he tells us that he has absolutely no psychiatric problem at all and does not need any treatment. -Today, we are increasing his olanzapine's as follows. We will begin olanzapine ODT 10 mg at bedtime starting tonight. We have also changed his order for medications over objection to olanzapine 10 mg IM daily for refusal of p.o. olanzapine. -Although the patient's presentation has many of the symptoms of a delusional disorder, persecutory typegiven the elaborate nature of the delusional system, we continue to suspect that what we are seeing is a somewhat atypical jorge, or discrete manic episodes overlaying a underlying delusional disorder. If the explanation for the patient's presentation is symptoms of a manic episode, his prognosis is better. We discussed the possibility of adding an antiobsessional medication which sometimes helps with pure delusional disorders, but the patient says that, absolutely, he will not take any medication that we offer him voluntarily. 11/22--continue Zyprexa IM hs, continues to refuse family meeting with due to paranoia, refuses 2-3 trial of PO Invega to convert to injectable. 11/23--File for 304 hearing d/t ongoing psychosis, lack of insight, refusal for outpatient treatment or ongoing medication, refusal to involve , and high risk for return to violent behavior if home w/ , whom he believes is part of the conspiracy against him. 11/24 - Continue olanzapine IM, continuing to offer patient PO medication which he is consistently refusing - Pt continues to refuse to involve in conversations regarding discharge and safety planning - 304 hearing scheduled for 11/30; pt continues to be psychotic and remains unable to engage in productive safety and discharge planing, therefore remains at high risk of harm to sefl or others if he is discharged home in his current state 11/25 - Titrating olanzapine to 10mg daily; patient continues to refuse offer for PO and is therefore continuing to receive IM injections each evening - 304 hearing 11/30; pt continues to be unwilling to participate in safety and discharge planning efforts 11/26 -The patient tells me that he received olanzapine 10 mg last evening and says that he feels that it has helped him sleep better. However, he notes that his sleep difficulty is related to the fact that his sleep schedule in the hospital is substantially different from the one that he is used to at home, with bedtime here at the hospital being 3 or 4 hours earlier than he is used to. Nevertheless, he says that he believes that he is not having any side effects from olanzapine and that, in the sense that it does help him fall asleep, it helps. Nevertheless, he also repeats today that he will not continue to take any medication, including olanzapine, if he is discharged. -I spoke with the patient's today, without disclosing any protected clinical data regarding the patient. She acknowledges that he frightens her, and, particularly recently, has caused her to fear for her personal physical safety. At the same time, she says tells me that she thinks that if she gets some advice about how best to "handle somebody who is delusional" possibly by getting into individual therapy, herself, she may be able to take him home. She also reports that should he be released (she is aware of upcoming hearing) that she will agree to take him home, because she loves him and wants to protect him, but continues to fear that he may again lose control of his behavior as a function of his delusions. -Today, the patient tells me that he recognizes that in his upcoming hearing on 11/30 (304) the issue may boil down to whether he can assure that he will be safe in the community and will not represent a risk to anyone else, even if he does not take medication. He also says that he recognizes the "Catch-22" that he is in because he realizes that the hospital is likely to say that his behavior in the hospital has been positively influenced by his taking olanzap ine, and that without the structure of the hospital and without the medications, he may revert to the dangerous behaviors that precipitated the admission. -Of concern is the fact that the patient's tells us today that, effective yesterday, he has told her that he will no longer speak to her telephonically, and if he is released from the hospital on Saturday he will simply walk home, and if she is not comfortable being home with him she should leave. However, by the end of today he is allowing that he truly believes that his loves him and would not try to harm him if she had any choice, so he is at least considering contacting her again by telephone. 11/27 -Patient informed of 304 hearing and plan to refer to the [facility], as well as additional labs needed for that referral. -He continues to refuse a family meeting with his , who has expressed ongoing concern for her safety. He continues to refuse p.o. medication, outpatient treatment, and discussion of his aggression at home or plans to mitigate it. He remains at risk of harm to others, particularly his , and if discharged prematurely, as she is implicated in his delusion and he believes she has part of the conspiracy against him. -Encourage the patient to attend groups and focus on his own emotional reaction to his perception of events, healthy coping skills, and a discharge safety plan; all of which thus far he has been unwilling to do. 11/28 - 11/29 -Patient refused PPD, EKG, and chest x-ray for [facility] referral. He is refusing to consider a trial of Invega/MERCADO, and continues to refuse a family meeting. -304 involuntary commitment hearing scheduled for 12/01/2019, and will then pursue referral to the [facility]. 11/30 - 304 involuntary commitment granted today, referral to the [facility] is reportedly supported by the [facility] at this time - Pt was again offered PPD, EKG and CXR for [facility] referral, which he again declined - Although he is not overtly refusing medication changes, he does verbalize desire to give olanzapine "another week" before switching to another agent. 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 He remains delusional and without insight, refusing medication (although getting the IM of Zyprexa daily), a family meeting, or discharge planning/outpatient care. -Recommend referral to [facility] for long-term inpatient treatment, will simultaneously referring for a BCM and working on potential diversion plans. 12/02 - Continue IM olanzapine - as continues to refuse oral medications or discuss ion regarding alternative agents - Most documentation sent to [facility] for referral - awaiting 303 and 304 findings to be sent and will then fax these as well - Pt continues to decline medical tests generally requested as part of [facility] referral, but cannot force these studies to be done 12/03 -We will increase his dose of IM olanzapine to 12.5 mg at bedtime. The medication thus far does not seem to have had much of a favorable impact on the patient's delusional belief system, and he is not willing to consider antiobsessional medications in the form of a selective serotonin reuptake inhibitor. However, the patient is now sleeping better and his general demeanor has been more calm, more pleasant, and more self-possessed. -The patient reports that he does not feel that he is experiencing any side effects from olanzapine, but fall short of saying that it is helping him in any way, other than perhaps for sleep. He mentions that he sometimes has a pain in his left abdominal wall and lower rib cage that he says he does not feel as a side effect from medication but, rather, the result of his doing sit ups and his bedroom by placing his feet under the mattress and exercising in that way. 12/04 - 12/05 -Zyprexa 12.5 mg IM po qhs, sedation from yesterday seems to be resolving, can likely be increased tomorrow. 12/06 - Continue Zyprexa 12.5mg IM this evening - continue attempts to engage patient in conversation regarding dose increases or consideration of alternative agents - Pt continues to be unwilling to participate in conversation regarding alternative discharge plans to state hospitalization. He continues to refuse to involve his or any other outpatient support in safety/discharge planning. - Referral to [facility] was completed and is reportedly being reviewed. 12/07 - Titrating Zyprexa 15mg IM - patient continues to refuse offer for oral medications. Pt was offered discussion about alternative agents, but declined. - Referral officially received by [facility] on 12/02/2019 (304 findings to be sent once received) - awaiting response regarding acceptance decision - Continue attempts to engage patient in discharge and safety planning - patient continues to be unwilling to discuss possible diversion plans 12/08 - 12/09 - Continue Zyprexa 15mg IM - pt continuing to refuse oral medications - Awaiting response from [facility] regarding referral - Pt remains unwilling to participate in safety planning or exploring diversion plan 12/10 -Patient is exhibiting excess sedation add Zyprexa 15 mg IM at bedtime. Specifically, the patient is observed to be hypersomnolent, has been sleeping off and on throughout the days, and indicates that he feels that at this higher dose of Zyprexa he is experiencing some cognitive slowing. At the same time, he does not seem to be responding to Zyprexa either at high doses or at low doses, other than it may be contributing to his ability to maintain self possession and avoid these sorts of dyscontroled behaviors that precipitated the current admission (for example, breaking furniture, knocking holes in the mckeon of his home, and tearing out shards of woodwork and ways that frightened his ). -The patient remains delusional and harbors an elaborate persecutory delusional system that he often hits that, but is reluctant to discuss in detail much of the time because he says that he fears that information that he shares with us will fall into the wrong hands and will interfere with his ability to expose those persons who he feels are responsible for the referenced "crimes against humanity." -The patient when asked, convincingly states that he is not having any thoughts of extracting retribution from the individuals and entities that he holds responsible for his delusional construct regarding "crimes against humanity," other than to expose them by publishing proof of their crimes. Specifically, he says that he has no plan to cause physical harm to the person or property of others and says that he will leave the question of punishment to those who are lawful he entitled to impose it. -Because the patient's delusional belief seem not to be responding favorably to olanzapine at the higher dose, and because he is exhibiting some symptoms of excess sedation associated with olanzapine at 15 mg daily, his dose of olanza pine (to be given IM if necessary for refusal of p.o. olanzapine) will be reduced to olanzapine 10 mg IM at bedtime, starting tonight. 12/11 The patient is less sedated at the 10 mg of olanzapine IM he continues to refuse oral medications. Provider did again re-present the role of an SSRI that may help but he is clear and adamant about refusal of all medications. 12/12 - he is slightly less sedated at 10mg olanzapine IM each hs, but is more agitated today that he had been and more profuse with this provider about his delusional beliefs and seeing this provider and all medical care here as passive pawns of a broader conspiracy through the [employer]. He continues to decline oral medications, or any form of aftercare for monitoring of irritability and agitation maintaining that he does not have any mental illness and that all he has is "truth." Presently his risk of continuing to incorporate anyone who disagrees with his delusion into the delusion, his unwillingness to take medications after discharge, and unwillingness to participate any form of routine relationship with a behavioral health provider after discharge, and incorporation of his in his delusional system with prior physical aggression are concerning. I believe ongoing inpatient hospitalization is most appropriate setting for care at this time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
[2020-01-02] MEDS: MULTIVITAMIN PO SCH (08:26)
[2020-01-02] MEDS: TERBINAFINE CR 30 GM TUBE EXT SCH ×2 (08:26→20:59)
--- NOTE | 2020-01-02 14:07 | Psychiatric Progress Note ---
Date of Service January 02, 2020 Impression / Recommendations Impression Patient seemingly a little more willing to participate in treatment planning in the last 24 hours. Olanzapine has been held as of 01/01/2020 as trial. So far he describes a little increase in sleep latency and level of alertness. Calm on interview this morning but will obviously need to watch closely without the sedating effect of the antipsychotic. (1) Delusional disorder: 11/14 Patient admitted on an involuntary status to the behavioral health unit for continued assessment and treatment as indicated He will be maintained on every 15 minute safety checks We will continue to expand database Consider neuroimaging for w/u of psychosis prn orders for Ativan and Haldol today. I suspect it is likely that he will require medications over objection before he permits any treatment due to what appears to be severely impaired insight. Patient will be reevaluated tomorrow for psychiatric second opinion regarding need for treatment over objection. -presently patient requires continued inpatient hospitalization for workup and treatment of psychosis which was been recently associated with some violent behavior at home. he is at risk of harm to self and others if discharged prematurely. 11/15 -File for 303 involuntary commitment. -Patient is refusing to consider medication, but has haloperidol and Ativan as needed ordered. Would recommend a trial of olanzapine, and agree with medications over objection as he has severe psychotic symptoms which are impairing his ability to function and placing both himself and others at risk of harm due to his violent behavior at home. -Patient is refused to answer questions about whether or not he has guns, so we will need to get this information from his . At this point he is refusing to sign a release for her or anyone else. -Excuse patient from groups due to the severity of his psychosis and violent behavior. Medically necessary private room room due to the same. 11/16 -303 involuntary commitment granted. -Patient continues to refuse to allow his to be involved in treatment. He is now not denying that he was aggressive at home, but is refusing to discuss it, and is focused only on the conspiracy which he says led to his behavior. -Continue to consider medications over objection. At this point, we are attempting to engage the patient in treatment volitionally, and the risk of forcing medications at this time is further alienating him. However, if he is unable to engage in any manner, we will need to reconsider medications over objection. -Patient may attend groups if able to maintain appropriate behavioral control. -Patient has still not been willing to complete admission assessments, and has not been willing to provide certain information. 4/ -Recommend medications over objection, as the patient is unable to engage in treatment due to the severity of his psychosis and lack of insight, and remains at imminent risk of harm to others, specifically his , if his symptoms remain untreated. He is floridly delusional, now implicating hospital staff in his delusions. He is not able to work as a result of his psychosis, and his is not able to work due to having to supervise him, and is fearful of him given his escalating violence at home. He continues to refuse to allow her to be involved in treatment, is not attending groups, and is refusing to even discuss medication options. Dr. Duarte recommended medications over objection, and I agree, as the patient is unlikely to improve without antipsychotic medication. -Start olanzapine Zydis 5 mg daily, with a 5 mg IM backup for refusal. Order FLP and FG tomorrow for baseline on an atypical antipsychotic. He will also need a medical work-up of psychosis once he is more cooperative, including brain MRI. -Ongoing poor sleep, staff will limit bright lights near his room at night, and if he can be compliant with medication, can move olanzapine to bedtime to assist with sleep. Giving during the day initially to allow for adequate staff in case of need for physical hold or restraint to receive medication. /2 - Continue olanzapine 5mg daily (offering PO Zydis with IM for refusal) - medications over objection, though patient has been cooperative with his preference for IM administration - Pt offered again PO olanzapine, with the eventual option of converting the medication to HS dosing if he continues to be cooperative - as he reports sedation after receiving the medication - Pt remains delusional and paranoid, unable to discuss examples of how we can assist him during his stay - Maintain MNPR due to level of psychosis - Fasting glucose - wnl at 90; triglycerides elevated at 188, remainder of lipid panel wnl - Continue attempts to coordinate care with patient's 4/ -Patient is continuing to say that he does not wish for us to speak with his , and he again tells us that he will not sign a consent that will allow us to contact her. As above, his assertion is that he does not want us talking to her because she may tell us things that we will include in the record and that will eventually be used against him, either by the government or by [facility]. As a compromise, the patient says that he will ask his to call us and tell us whether she continues to feel that he is a danger to her, himself, or to anyone else. It was explained that we would also need to be able to talk to her about our concerns and we would need to coordinate aftercare arrangements with her. The patient replied to that by saying simply that he would not allow us to say anything about his care or recommended treatment to her at this time. -There seem to be some early indications that the patient may be responding to olanzapine. Today, when I told him that our concerns about his safety had not to do with his behaviors here in the hospital but, instead, about his behaviors at home (in the community) he quickly responded, "yes, but I am getting medication here!" (He almost immediately realized the implication of what he had just said, and he immediately changed the subject and began talking about how various entities were deliberately provoking him into losing his temper and acting in anger. -The patient tells us that he is using the fact that he has been given intramuscular medications against his will as evidence of our being the "dupes" or agents of the entities behind the conspiracy to silence him. He also reiterates that he believes that taking medication voluntarily is tantamount to acknowledging his need for psychiatric treatment, and he tells us that he has absolutely no psychiatric problem at all and does not need any treatment. -Today, we are increasing his olanzapine's as follows. We will begin olanzapine ODT 10 mg at bedtime starting tonight. We have also changed his order for medications over objection to olanzapine 10 mg IM daily for refusal of p.o. olanzapine. -Although the patient's presentation has many of the symptoms of a delusional disorder, persecutory typegiven the elaborate nature of the delusional system, we continue to suspect that what we are seeing is a somewhat atypical jorge, or discrete manic episodes overlaying a underlying delusional disorder. If the explanation for the patient's presentation is symptoms of a manic episode, his prognosis is better. We discussed the possibility of adding an antiobsessional medication which sometimes helps with pure delusional disorders, but the patient says that, absolutely, he will not take any medication that we offer him voluntarily. 11/22--continue Zyprexa IM hs, continues to refuse family meeting with due to paranoia, refuses 2-3 trial of PO Invega to convert to injectable. 11/23--File for 304 hearing d/t ongoing psychosis, lack of insight, refusal for outpatient treatment or ongoing medication, refusal to involve , and high risk for return to violent behavior if home w/ , whom he believes is part of the conspiracy against him. 11/24 - Continue olanzapine IM, continuing to offer patient PO medication which he is consistently refusing - Pt continues to refuse to involve in conversations regarding discharge and safety planning - 304 hearing scheduled for 11/30; pt continues to be psychotic and remains unable to engage in productive safety and discharge planing, therefore remains at high risk of harm to sefl or others if he is discharged home in his current state 11/25 - Titrating olanzapine to 10mg daily; patient continues to refuse offer for PO and is therefore continuing to receive IM injections each evening - 304 hearing 11/30; pt continues to be unwilling to participate in safety and discharge planning efforts 11/26 -The patient tells me that he received olanzapine 10 mg last evening and says that he feels that it has helped him sleep better. However, he notes that his sleep difficulty is related to the fact that his sleep schedule in the hospital is substantially different from the one that he is used to at home, with bedtime here at the hospital being 3 or 4 hours earlier than he is used to. Nevertheless, he says that he believes that he is not having any side effects from olanzapine and that, in the sense that it does help him fall asleep, it helps. Nevertheless, he also repeats today that he will not continue to take any medication, including olanzapine, if he is discharged. -I spoke with the patient's today, without disclosing any protected clinical data regarding the patient. She acknowledges that he frightens her, and, particularly recently, has caused her to fear for her personal physical safety. At the same time, she says tells me that she thinks that if she gets some advice about how best to "handle somebody who is delusional" possibly by getting into individual therapy, herself, she may be able to take him home. She also reports that should he be released (she is aware of upcoming hearing) that she will agree to take him home, because she loves him and wants to protect him, but continues to fear that he may again lose control of his behavior as a function of his delusions. -Today, the patient tells me that he recognizes that in his upcoming hearing on 11/30 (304) the issue may boil down to whether he can assure that he will be safe in the community and will not represent a risk to anyone else, even if he does not take medication. He also says that he recognizes the "Catch-22" that he is in because he realizes that the hospital is likely to say that his behavior in the hospital has been positively influenced by his taking olanzapine, and that without the structure of the hospital and without the medications, he may revert to the dangerous behaviors that precipitated the admission. -Of concern is the fact that the patient's tells us today that, effective yesterday, he has told her that he will no longer speak to her telephonically, and if he is released from the hospital on Saturday he will simply walk home, and if she is not comfortable being home with him she should leave. However, by the end of today he is allowing that he truly believes that his loves him and would not try to harm him if she had any choice, so he is at least considering contacting her again by telephone. 11/27 -Patient informed of 304 hearing and plan to refer to the [facility], as well as additional labs needed for that referral. -He continues to refuse a family meeting with his , who has expressed ongoing concern for her safety. He continues to refuse p.o. medication, outpati ent treatment, and discussion of his aggression at home or plans to mitigate it. He remains at risk of harm to others, particularly his , and if discharged prematurely, as she is implicated in his delusion and he believes she has part of the conspiracy against him. -Encourage the patient to attend groups and focus on his own emotional reaction to his perception of events, healthy coping skills, and a discharge safety plan; all of which thus far he has been unwilling to do. 11/28 - 11/29 -Patient refused PPD, EKG, and chest x-ray for [facility] hospital referral. He is refusing to consider a trial of Invega/MERCADO, and continues to refuse a family meeting. -304 involuntary commitment hearing scheduled for 12/01/2019, and will then pursue referral to the [facility]. 11/30 - 304 involuntary commitment granted today, referral to the [facility] is reportedly supported by the [facility] at this time - Pt was again offered PPD, EKG and CXR for [facility] hospital referral, which he again declined - Although he is not overtly refusing medication changes, he does verbalize desire to give olanzapine "another week" before switching to another agent. 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 He remains delusional and without insight, refusing medication (although getting the IM of Zyprexa daily), a family meeting, or discharge planning/outpatient care. -Recommend referral to [facility] for long-term inpatient treatment, will simultaneously referring for a BCM and working on potential diversion plans. 12/02 - Continue IM olanzapine - as continues to refuse oral medications or discussion regarding alternative agents - Most documentation sent to [facility] for referral - awaiting 303 and 304 findings to be sent and will then fax these as well - Pt continues to decline medical tests generally requested as part of [facility] referral, but cannot force these studies to be done 12/03 -We will increase his dose of IM olanzapine to 12.5 mg at bedtime. The medication thus far does not seem to have had much of a favorable impact on the patient's delusional belief system, and he is not willing to consider antiobsessional medications in the form of a selective serotonin reuptake inhibitor. However, the patient is now sleeping better and his general demeanor has been more calm, more pleasant, and more self-possessed. -The patient reports that he does not feel that he is experiencing any side effects from olanzapine, but fall short of saying that it is helping him in any way, other than perhaps for sleep. He mentions that he sometimes has a pain in his left abdominal wall and lower rib cage that he says he does not feel as a side effect from medication but, rather, the result of his doing sit ups and his bedroom by placing his feet under the mattress and exercising in that way. 12/04 - 12/05 -Zyprexa 12.5 mg IM po qhs, sedation from yesterday seems to be resolving, can likely be increased tomorrow. 12/06 - Continue Zyprexa 12.5mg IM this evening - continue attempts to engage patient in conversation regarding dose increases or consideration of alternative agents - Pt continues to be unwilling to participate in conversation regarding alternative discharge plans to state hospitalization. He continues to refuse to involve his or any other outpatient support in safety/discharge planning. - Referral to [facility] was completed and is reportedly being reviewed. 12/07 - Titrating Zyprexa 15mg IM - patient continues to refuse offer for oral medications. Pt was offered discussion about alternative agents, but declined. - Referral officially received by [facility] on 12/02/2019 (304 findings to be sent once received) - awaiting response regarding acceptance dec ision - Continue attempts to engage patient in discharge and safety planning - patient continues to be unwilling to discuss possible diversion plans 12/08 - 12/09 - Continue Zyprexa 15mg IM - pt continuing to refuse oral medications - Awaiting response from [facility] regarding referral - Pt remains unwilling to participate in safety planning or exploring diversion plan 12/10 -Patient is exhibiting excess sedation add Zyprexa 15 mg IM at bedtime. Specifically, the patient is observed to be hypersomnolent, has been sleeping off and on throughout the days, and indicates that he feels that at this higher dose of Zyprexa he is experiencing some cognitive slowing. At the same time, he does not seem to be responding to Zyprexa either at high doses or at low doses, other than it may be contributing to his ability to maintain self possession and avoid these sorts of dyscontroled behaviors that precipitated the current admission (for example, breaking furniture, knocking holes in the [place] of his home, and tearing out shards of woodwork and ways that frightened his ). -The patient remains delusional and harbors an elaborate persecutory delusional system that he often hits that, but is reluctant to discuss in detail much of the time because he says that he fears that information that he shares with us will fall into the wrong hands and will interfere with his ability to expose those persons who he feels are responsible for the referenced "crimes against humanity." -The patient when asked, convincingly states that he is not having any thoughts of extracting retribution from the individuals and entities that he holds responsible for his delusional construct regarding "crimes against humanity," other than to expose them by publishing proof of their crimes. Specifically, he says that he has no plan to cause physical harm to the person or property of others and says that he will leave the question of punishment to those who are lawful he entitled to impose it. -Because the patient's delusional belief seem not to be responding favorably to olanzapine at the higher dose, and because he is exhibiting some symptoms of excess sedation associated with olanzapine at 15 mg daily, his dose of olanzapine (to be given IM if necessary for refusal of p.o. olanzapine) will be reduced to olanzapine 10 mg IM at bedtime, starting tonight. 12/11 The patient is less sedated at the 10 mg of olanzapine IM he continues to refuse oral medications. Provider did again re-present the role of an SSRI that may help but he is clear and adamant about refusal of all medications. 12/12 - he is slightly less sedated at 10mg olanzapine IM each hs, but is more agitated today that he had been and more profuse with this provider about his delusional beliefs and seeing this provider and all medical care here as passive pawns of a broader conspiracy through the [employer]. He continues to decline oral medications, or any form of aftercare for monitoring of irritability and agitation maintaining that he does not have any mental illness and that all he has is "truth." Presently his risk of continuing to incorporate anyone who disagrees with his delusion into the delusion, his unwillingness to take medications after discharge, and unwillingness to participate any form of routine relationship with a behavioral health provider after discharge, and incorporation of his in his delusional system with prior physical aggression are concerning. I believe ongoing inpatient hospitalization is most appropriate setting for care at this time 12/13 - Continue olanzapine 10mg IM each evening (patient continues to refuse PO medications or discussion regarding alternative agents. - Pt continues to appear sedated, though is spending more time out of his room in the afternoons. - Anticipate decision regarding [facility] referral in the next few days 12/14 - Continue current treatment plan, patient reporting improvement in fatigue today - Anticipate update from [facility] soon regarding decision on referral - Pt continues to be resistant to attempts to safety plan or discuss alternative discharge options 12/15 - Continue current treatment plan - patient reports he is better tolerating lower dose of olanzapine but still reports daytime fatigue - Explanation provided to patient regarding request for MRI, heavy metal studies, B12, and folate - patient is persistent in his unwillingness to have these studies completed at this time - Will attempt to gather more information regarding reports of a previous MRI - Could consider cognitive assessment such as MoCA - as patient was limited in his willingness to even discuss superficial details with this provider, cognitive assessment was not attempted today - Pt went outside with staff this afternoon - continue to offer intermittently and assess the appropriateness of his presentation 12/16 - Continue current treatment plan - olanzapine 10mg qHS. Pt continues to refuse PO medications but tolerates IM injections without incident - Pt again unwilling to consider studies to rule out organic causes for the presence of delusions. Although organic cause was questioned during initial admission, it appears less likely to be the case but of course cannot be entirely ruled out without patient's willingness to participate in these studies. History obtained from patient and suggest a long history of OCD characteristics and paranoia that appear to have developed into delusional and persecutory thinking. - Pt remains resistant to participating in appropriate safety and discharge planning and continues to refuse to involve in these steps. - Awaiting decision from [facility] regarding his referral, it continues to be the opinion of our treatment team that patient is an appropriate candidate for long-term hospitalization 12/17 - Continue current treatment plan. Pt escorted outside by staff today. - Received word that patient has been accepted to [facility]. They require that 304 reflect commitment being changed to their facility prior to being able to formally put patient on their waitlist. These changes have been requested through the county. 12/18--Continue current meds and treatment plan. terfinafine as above. 12/19 - 12/20--Continue current meds and treatment plan. 12/21 - Continue current treatment plan - pt reports he is tolerating 7.5mg dose of olanzapine better - Pt formally placed on waitlist for [facility] today - updated 304 was received from the [facility] and faxed to [place] 12/22 - 12/23 - Continue current medications and treatment plan 12/24 -Patient reports that he feels that he is tolerating olanzapine 7.5 mg IM at bedtime fairly well, and notes that the adverse effect of excess somnolence that he was experiencing at higher doses has essentially resolved. The treatment team agrees that the patient has been more alert and, but he continues to refuse to attend groups. -Attempts to appeal to the patient's logic remain unsuccessful, which is quite typical of delusional disorder. However, he has not been able to neutralize data that seem to contradict his highly systematized delusional system, and when this occurs he tends to become surprisingly concrete with responses such as "well, I guess that only means I am a raving lunatic" or "look, I know what I know. These things are real, no matter what anyone says." -The patient's brother has contacted the treatment team. 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 The patient's brother reports that he, the brother, and their mother and the patient's for all researching alternatives to long-term psychiatric hospitalization in a [facility] hospital. While we would love to see that happen, it seems unlikely given the fact that the patient is completely lacking in insight and completely unwilling to partici harrison in any form of psychiatric treatment voluntarily. 12/25 - Continue current medications and treatment plan - Pt states family has offered suggestions for alternative treatment settings to the [facility], but patient had had no motivation to discuss these further - Pt maintains highly sophisticated and fixed delusional thought content 12/26 - Continue current medications and treatment plan - Awaiting bed date from [facility]; patient officially on waitlist 12/27 - Continue olanzapine 7.5mg qHS, patient continues to take the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
[2020-01-03] MEDS: MULTIVITAMIN PO SCH (08:13)
[2020-01-03] MEDS: TERBINAFINE CR 30 GM TUBE EXT SCH ×2 (08:14→20:22)
--- NOTE | 2020-01-03 11:29 | Psychiatric Progress Note ---
Date of Service January 03, 2020 Impression / Recommendations Impression Patient maintaining behavioral control with stable affect over the weekend. Olanzapine has been held as of 01/01/2020 as trial. Delusions persist however, as patient is demonstrating some increased willingness to participate in his care and if patient is agreeable to outpatient psychiatric follow-up and a satisfactory safety plan can be constructed with help from patient's who would be his primary support person in the community, perhaps he may be able to avoid the long-term psychiatric hospitalization disposition. (1) Delusional disorder: 11/14 Patient admitted on an involuntary status to the behavioral health unit for continued assessment and treatment as indicated He will be maintained on every 15 minute safety checks We will continue to expand database Consider neuroimaging for w/u of psychosis prn orders for Ativan and Haldol today. I suspect it is likely that he will require medications over objection before he permits any treatment due to what appears to be severely impaired insight. Patient will be reevaluated tomorrow for psychiatric second opinion regarding need for treatment over objection. -presently patient requires continued inpatient hospitalization for workup and treatment of psychosis which was been recently associated with some violent behavior at home. he is at risk of harm to self and others if discharged prematurely. 11/15 -File for 303 involuntary commitment. -Patient is refusing to consider medication, but has haloperidol and Ativan as needed ordered. Would recommend a trial of olanzapine, and agree with medications over objection as he has severe psychotic symptoms which are impairing his ability to function and placing both himself and others at risk of harm due to his violent behavior at home. -Patient is refused to answer questions about whether or not he has guns, so we will need to get this information from his . At this point he is refusing to sign a release for her or anyone else. -Excuse patient from groups due to the severity of his psychosis and violent behavior. Medically necessary private room room due to the same. 11/16 -303 involuntary commitment granted. -Patient continues to refuse to allow his to be involved in treatment. He is now not denying that he was aggressive at home, but is refusing to discuss it, and is focused only on the conspiracy which he says led to his behavior. -Continue to consider medications over objection. At this point, we are attempting to engage the patient in treatment volitionally, and the risk of forcing medications at this time is further alienating him. However, if he is unable to engage in any manner, we will need to reconsider medications over objection. -Patient may attend groups if able to maintain appropriate behavioral control. -Patient has still not been willing to complete admission assessments, and has not been willing to provide certain information. 11/17 -Recommend medications over objection, as the patient is unable to engage in treatment due to the severity of his psychosis and lack of insight, and remains at imminent risk of harm to others, specifically his , if his symptoms remain untreated. He is floridly delusional, now implicating hospital staff in his delusions. He is not able to work as a result of his psychosis, and his is not able to work due to having to supervise him, and is fearful of him given his escalating violence at home. He continues to refuse to allow her to be involved in treatment, is not attending groups, and is refusing to even discuss medication options. Dr. Duarte recommended medications over objection, and I agree, as the patient is unlikely to improve without antipsychotic medication. -Start olanzapine Zydis 5 mg daily, with a 5 mg IM backup for refusal. Order FLP and FG tomorrow for baseline on an atypical antipsychotic. He will also need a medical work-up of psychosis once he is more cooperative, including brain MRI. -Ongoing poor sleep, staff will limit bright lights near his room at night, and if he can be compliant with medication, can move olanzapine to bedtime to assist with sleep. Giving during the day initially to allow for adequate staff in case of need for physical hold or restraint to receive medication. 11/18 - Continue olanzapine 5mg daily (offering PO Zydis with IM for refusal) - medications over objection, though patient has been cooperative with his preference for IM administration - Pt offered again PO olanzapine, with the eventual option of converting the medication to HS dosing if he continues to be cooperative - as he reports sedation after receiving the medication - Pt remains delusional and paranoid, unable to discuss examples of how we can assist him during his stay - Maintain MNPR due to level of psychosis - Fasting glucose - wnl at 90; triglycerides elevated at 188, remainder of lipid panel wnl - Continue attempts to coordinate care with patient's 11/19 -Patient is continuing to say that he does not wish for us to speak with his , and he again tells us that he will not sign a consent that will allow us to contact her. As above, his assertion is that he does not want us talking to her because she may tell us things that we will include in the record and that will eventually be used against him, either by the government or by [facility]. As a compromise, the patient says that he will ask his to call us and tell us whether she continues to feel that he is a danger to her, himself, or to anyone else. It was explained that we would also need to be able to talk to her about our concerns and we would need to coordinate aftercare arrangements with her. The patient replied to that by saying simply that he would not allow us to say anything about his care or recommended treatment to her at this time. -There seem to be some early indications that the patient may be responding to olanzapine. Today, when I told him that our concerns about his safety had not to do with his behaviors here in the hospital but, instead, about his behaviors at home (in the community) he quickly responded, "yes, but I am getting medication here!" (He almost immediately realized the implication of what he had just said, and he immediately changed the subject and began talking about how various entities were deliberately provoking him into losing his temper and acting in anger. -The patient tells us that he is using the fact that he has been given intramuscular medications against his will as evidence of our being the "dupes" or agents of the entities behind the conspiracy to silence him. He also reiterates that he believes that taking medication voluntarily is tantamount to acknowledging his need for psychiatric treatment, and he tells us that he has absolutely no psychiatric problem at all and does not need any treatment. -Today, we are increasing his olanzapine's as follows. We will begin o lanzapine ODT 10 mg at bedtime starting tonight. We have also changed his order for medications over objection to olanzapine 10 mg IM daily for refusal of p.o. olanzapine. -Although the patient's presentation has many of the symptoms of a delusional disorder, persecutory typegiven the elaborate nature of the delusional system, we continue to suspect that what we are seeing is a somewhat atypical jorge, or discrete manic episodes overlaying a underlying delusional disorder. If the explanation for the patient's presentation is symptoms of a manic episode, his prognosis is better. We discussed the possibility of adding an antiobsessional medication which sometimes helps with pure delusional disorders, but the patient says that, absolutely, he will not take any medication that we offer him voluntarily. 11/22--continue Zyprexa IM hs, continues to refuse family meeting with due to paranoia, refuses 2-3 trial of PO Invega to convert to injectable. 11/23--File for 304 hearing d/t ongoing psychosis, lack of insight, refusal for outpatient treatment or ongoing medication, refusal to involve , and high risk for return to violent behavior if home w/ , whom he believes is part of the conspiracy against him. 11/24 - Continue olanzapine IM, continuing to offer patient PO medication which he is consistently refusing - Pt continues to refuse to involve in conversations regarding discharge and safety planning - 304 hearing scheduled for 11/30; pt continues to be psychotic and remains unable to engage in productive safety and discharge planing, therefore remains at high risk of harm to sefl or others if he is discharged home in his current state 11/25 - Titrating olanzapine to 10mg daily; patient continues to refuse offer for PO and is therefore continuing to receive IM injections each evening - 304 hearing 11/30; pt continues to be unwilling to participate in safety and discharge planning efforts 11/26 -The patient tells me that he received olanzapine 10 mg last evening and says that he feels that it has helped him sleep better. However, he notes that his sleep difficulty is related to the fact that his sleep schedule in the hospital is substantially different from the one that he is used to at home, with bedtime here at the hospital being 3 or 4 hours earlier than he is used to. Nevertheless, he says that he believes that he is not having any side effects from olanzapine and that, in the sense that it does help him fall asleep, it helps. Nevertheless, he also repeats today that he will not continue to take any medication, including olanzapine, if he is discharged. -I spoke with the patient's today, without disclosing any protected clinical data regarding the patient. She acknowledges that he frightens her, and, particularly recently, has caused her to fear for her personal physical safety. At the same time, she says tells me that she thinks that if she gets some advice about how best to "handle somebody who is delusional" possibly by getting into individual therapy, herself, she may be able to take him home. She also reports that should he be released (she is aware of upcoming hearing) that she will agree to take him home, because she loves him and wants to protect him, but continues to fear that he may again lose control of his behavior as a function of his delusions. -Today, the patient tells me that he recognizes that in his upcoming hearing on 11/30 (304) the issue may boil down to whether he can assure that he will be safe in the community and will not represent a risk to anyone else, even if he does not take medication. He also says that he recognizes the "Catch-22" that he is in because he realizes that the hospital is likely to say that his behavior in the hospital has been positively influenced by his taking olanzapine, and that without the structure of the hospital and without the medications, he may revert to the dangerous behaviors that precipitated the admission. -Of concern is the fact that the patient's tells us today that, effective yesterday, he has told her that he will no longer speak to her telephonically, and if he is released from the hospital on Saturday he will simply walk home, and if she is not comfortable being home with him she should leave. However, by the end of today he is allowing that he truly believes that his loves him and would not try to harm him if she had any choice, so he is at least considering contacting her again by telephone. 11/27 -Patient informed of 304 hearing and plan to refer to the [facility], as well as additional labs needed for that referral. -He continues to refuse a family meeting with his , who has expressed ongoing concern for her safety. He continues to refuse p.o. medication, outpatient treatment, and discussion of his aggression at home or plans to mitigate it. He remains at risk of harm to others, particularly his , and if discharged prematurely, as she is implicated in his delusion and he believes she has part of the conspiracy against him. -Encourage the patient to attend groups and focus on his own emotional reaction to his perception of events, healthy coping skills, and a discharge safety plan; all of which thus far he has been unwilling to do. 11/28 - 11/29 -Patient refused PPD, EKG, and chest x-ray for [facility] referral. He is refusing to consider a trial of Invega/MERCADO, and continues to refuse a family meeting. -304 involuntary commitment hearing scheduled for 12/01/2019, and will then pursue referral to the [facility]. 11/30 - 304 involuntary commitment granted today, referral to the [facility] is reportedly supported by the [facility] at this time - Pt was again offered PPD, EKG and CXR for [facility] referral, which he again declined - Although he is not overtly refusing medication changes, he does verbalize desire to give olanzapine "another week" before switching to another agent. 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 He remains delusional and without insight, refusing medication (although getting the IM of Zyprexa daily), a family meeting, or discharge planning/outpatient care. -Recommend referral to [facility] for long-term inpatient treatment, will simultaneously referring for a BCM and working on potential diversion plans. 12/02 - Continue IM olanzapine - as continues to refuse oral medications or discussion regarding alternative agents - Most documentation sent to [facility] for referral - awaiting 303 and 304 findings to be sent and will then fax these as well - Pt continues to decline medical tests generally requested as part of [facility] referral, but cannot force these studies to be done 12/03 -We will increase his dose of IM olanzapine to 12.5 mg at bedtime. The medication thus far does not seem to have had much of a favorable impact on the patient's delusional belief system, and he is not willing to consider antiobsessional medications in the form of a selective serotonin reuptake inhibitor. However, the patient is now sleeping better and his general demeanor has been more calm, more pleasant, and more self-possessed. -The patient reports that he does not feel that he is experiencing any side effects from olanzapine, but fall short of saying that it is helping him in any way, other than perhaps for sleep. He mentions that he sometimes has a pain in his left abdominal wall and lower rib cage that he says he does not feel as a side effect from medication but, rather, the result of his doing sit ups and his bedroom by placing his feet under the mattress and exercising in that way. 12/04 - 12/05 -Zyprexa 12.5 mg IM po qhs, sedation from yesterday seems to be resolving, can likely be increased tomorrow. 12/06 - Continue Zyprexa 12.5mg IM this evening - continue attempts to engage patient in conversation regarding dose increases or consideration of alternative agents - Pt continues to be unwilling to participate in conversation regarding alternative discharge plans to state hospitalization. He continues to refuse to involve his or any other outpatient support in safety/discharge planning. - Referral to [facility] was completed and is reportedly being reviewed. 12/07 - Titrating Zyprexa 15mg IM - patient continues to refuse offer for oral medications. Pt was offered discussion about alternative agents, but declined. - Referral officially received by [facility] on 12/02/2019 (304 findings to be sent once received) - awaiting response regarding acceptance decision - Continue attempts to engage patient in discharge and safety planning - patient continues to be unwilling to discuss possible diversion plans 12/08 - 12/09 - Continue Zyprexa 15mg IM - pt continuing to refuse oral medications - Awaiting response from [facility] regarding referral - Pt remains unwilling to participate in safety planning or exploring diversion plan 12/10 -Patient is exhibiting excess sedation add Zyprexa 15 mg IM at bedtime. Specifically, the patient is observed to be hypersomnolent, has been sleeping off and on throughout the days, and indicates that he feels that at this higher dose of Zyprexa he is experiencing some cognitive slowing. At the same time, he does not seem to be responding to Zyprexa either at high doses or at low doses, other than it may be contributing to his ability to maintain self possession and avoid these sorts of dyscontroled behaviors that precipitated the current admission (for example, breaking furniture, knocking holes in the [place] of his home, and tearing out shards of woodwork and ways that frightened his ). -The patient remains delusional and harbors an elaborate persecutory delusional system that he often hits that, but is reluctant to discuss in detail much of the time because he says that he fears that information that he shares with us will fall into the wrong hands and will interfere with his ability to expose those persons who he feels are responsible for the referenced "crimes against humanity." -The patient when asked, convincingly states that he is not having any thoughts of extracting retribution from the individuals and entities that he holds responsible for his delusional construct regarding "crimes against humanity," other than to expose them by publishing proof of their crimes. Specifically, he says that he has no plan to cause physical harm to the person or property of others and says that he will leave the question of punishment to those who are lawful he entitled to impose it. -Because the patient's delusional belief seem not to be responding favorably to olanzapine at the higher dose, and because he is exhibiting some symptoms of excess sedation associated with olanzapine at 15 mg daily, his dose of olanzapine (to be given IM if necessary for refusal of p.o. olanzapine) will be reduced to olanzapine 10 mg IM at bedtime, starting tonight. 12/11 The patient is less sedated at the 10 mg of olanzapine IM he continues to refuse oral medications. Provider did again re-present the role of an SSRI that may help but he is clear and adamant about refusal of all medications. 12/12 - he is slightly less sedated at 10mg olanzapine IM each hs, but is more agitated today that he had been and more profuse with this provider about his delusional beliefs and seeing this provider and all medical care here as passive pawns of a broader conspiracy through the [employer]. He continues to decline oral medications, or any form of aftercare for monitoring of irritability and agitation maintaining that he does not have any mental illness and that all he has is "truth." Presently his risk of continuing to incorporate anyone who disagrees with his delusion into the delusion, his unwillingness to take medications after discharge, and unwillingness to participate any form of routine relationship with a behavioral health provider after discharge, and incorporation of his in his delusional system with prior physical aggression are concerning. I believe ongoing inpatient hospitalization is most appropriate setting for care at this time 12/13 - Continue olanzapine 10mg IM each evening (patient continues to refuse PO medications or discussion regarding alternative agents. - Pt continues to appear sedated, though is spending more time out of his room in the afternoons. - Anticipate decision regarding [facility] referral in the next few days 12/14 - Continue current treatment plan, patient reporting improvement in fatigue today - Anticipate update from [facility] soon regarding decision on referral - Pt continues to be resistant to attempts to safety plan or discuss alternative discharge options 12/15 - Continue current treatment plan - patient reports he is better tolerating lower dose of olanzapine but still reports daytime fatigue - Explanation provided to patient regarding request for MRI, heavy metal studies, B12, and folate - patient is persistent in his unwillingness to have these studies completed at this time - Will attempt to gather more information regarding reports of a previous MRI - Could consider cognitive assessment such as MoCA - as patient was limited in his willingness to even discuss superficial details with this provider, cognitive assessment was not attempted today - Pt went outside with staff this afternoon - continue to offer intermittently and assess the appropriateness of his presentation 12/16 - Continue current treatment plan - olanzapine 10mg qHS. Pt continues to refuse PO medications but tolerates IM injections without incident - Pt again unwilling to consider studies to rule out organic causes for the presence of delusions. Although organic cause was questioned during initial admission, it appears less likely to be the case but of course cannot be entirely ruled out without patient's willingness to participate in these studies. History obtained from patient and suggest a long history of OCD characteristics and paranoia that appear to have developed into delusional and persecutory thinking. - Pt remains resistant to participating in appropriate safety and discharge planning and continues to refuse to involve in these steps. - Awaiting decision from [facility] regarding his referral, it continues to be the opinion of our treatment team that patient is an appropriate candidate for long-term hospitalization 12/17 - Continue current treatment plan. Pt escorted outside by staff today. - Received word that patient has been accepted to [facility]. They require that 304 reflect commitment being changed to their facility prior to being able to formally put patient on their waitlist. These changes [place] been requested through the county. 12/18--Continue current meds and treatment plan. terfinafine as above. 12/19 - 12/20--Continue current meds and treatment plan. 12/21 - Continue current treatment plan - pt reports he is tolerating 7.5mg dose of olanzapine better - Pt formally placed on waitlist for [facility] today - updated 304 was received from the [facility] and faxed to [facility] 12/22 - 12/23 - Continue current medications and treatment plan 12/24 -Patient reports that he feels that he is tolerating olanzapine 7.5 mg IM at bedtime fairly well, and notes that the adverse effect of excess somnolence that he was experiencing at higher doses has essentially resolved. The treatment team agrees that the patient has been more alert and, but he continues to refuse to attend groups. -Attempts to appeal to the patient's logic remain unsuccessful, which is quite typical of delusional disorder. However, he has not been able to neutralize data that seem to contradict his highly systematized delusional system, and when this occurs he tends to become surprisingly concrete with responses such as "well, I guess that only means I am a raving lunatic" or "look, I know what I know. These things are real, no matter what anyone says." -The patient's brother has contacted the treatment team. 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 The patient's brother reports that he, the brother, and their mother and the patient's for all researching alternatives to long-term psychiatric hospitalization in a [facility]. While we would love to see that happen, it seems unlikely given the fact that the patient is completely lacking in insight and completely unwilling to participate in any form of psychiatric treatment voluntarily. 12/25 - Continue current medications and treatment plan - Pt states family has offered suggestions for alternative treatment settings to the [facility], but patient had had no motivation to discuss these further - Pt maintains highly sophisticated and fixed delusional thought content 12/26 - Continue current medications and treatment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
--- NOTE | 2020-01-04 08:23 | Psychiatric Progress Note ---
Date of Service January 04, 2020 Impression / Recommendations Impression Olanzapine has been held as of 01/01/2020 as trial, and so far patient has maintained behavioral control, and does not appear to be more focused on delusions/paranoia, although they persist. He has demonstrated some increased willingness to participate in his care, and we will schedule a meeting with his while exploring diversion options. He has been accepted at [facility] and we are still awaiting a bed date. (1) Delusional disorder: 11/14 Patient admitted on an involuntary status to the behavioral health unit for continued assessment and treatment as indicated He will be maintained on every 15 minute safety checks We will continue to expand database Consider neuroimaging for w/u of psychosis prn orders for Ativan and Haldol today. I suspect it is likely that he will require medications over objection before he permits any treatment due to what appears to be severely impaired insight. Patient will be reevaluated tomorrow for psychiatric second opinion regarding need for treatment over objection. -presently patient requires continued inpatient hospitalization for workup and treatment of psychosis which was been recently associated with some violent behavior at home. he is at risk of harm to self and others if discharged prematurely. 11/15 -File for 303 involuntary commitment. -Patient is refusing to consider medication, but has haloperidol and Ativan as needed ordered. Would recommend a trial of olanzapine, and agree with medications over objection as he has severe psychotic symptoms which are impairing his ability to function and placing both himself and others at risk of harm due to his violent behavior at home. -Patient is refused to answer questions about whether or not he has guns, so we will need to get this information from his . At this point he is refusing to sign a release for her or anyone else. -Excuse patient from groups due to the severity of his psychosis and violent behavior. Medically necessary private room room due to the same. 11/16 -303 involuntary commitment granted. -Patient continues to refuse to allow his to be involved in treatment. He is now not denying that he was aggressive at home, but is refusing to discuss it, and is focused only on the conspiracy which he says led to his behavior. -Continue to consider medications over objection. At this point, we are attempting to engage the patient in treatment volitionally, and the risk of forcing medications at this time is further alienating him. However, if he is unable to engage in any manner, we will need to reconsider medications over objection. -Patient may attend groups if able to maintain appropriate behavioral control. -Patient has still not been willing to complete admission assessments, and has not been willing to provide certain information. 4/ -Recommend medications over objection, as the patient is unable to engage in treatment due to the severity of his psychosis and lack of insight, and remains at imminent risk of harm to others, specifically his , if his symptoms remain untreated. He is floridly delusional, now implicating hospital staff in his delusions. He is not able to work as a result of his psychosis, and his is not able to work due to having to supervise him, and is fearful of him given his escalating violence at home. He continues to refuse to allow her to be involved in treatment, is not attending groups, and is refusing to even discuss medication options. Dr. Duarte recommended medications over objection, and I agree, as the patient is unlikely to improve without antipsychotic medication. -Start olanzapine Zydis 5 mg daily, with a 5 mg IM backup for refusal. Order FLP and FG tomorrow for baseline on an atypical antipsychotic. He will also need a medical work-up of psychosis once he is more cooperative, including brain MRI. -Ongoing poor sleep, staff will limit bright lights near his room at night, and if he can be compliant with medication, can move olanzapine to bedtime to assist with sleep. Giving during the day initially to allow for adequate staff in case of need for physical hold or restraint to receive medication. 11/18 - Continue olanzapine 5mg daily (offering PO Zydis with IM for refusal) - medications over objection, though patient has been cooperative with his preference for IM administration - Pt offered again PO olanzapine, with the eventual option of converting the medication to HS dosing if he continues to be cooperative - as he reports sedation after receiving the medication - Pt remains delusional and paranoid, unable to discuss examples of how we can assist him during his stay - Maintain MNPR due to level of psychosis - Fasting glucose - wnl at 90; triglycerides elevated at 188, remainder of lipid panel wnl - Continue attempts to coordinate care with patient's 4/ -Patient is continuing to say that he does not wish for us to speak with his , and he again tells us that he will not sign a consent that will allow us to contact her. As above, his assertion is that he does not want us talking to her because she may tell us things that we will include in the record and that will eventually be used against him, either by the government or by [facility]. As a compromise, the patient says that he will ask his to call us and tell us whether she continues to feel that he is a danger to her, himself, or to anyone else. It was explained that we would also need to be able to talk to her about our concerns and we would need to coordinate aftercare arrangements with her. The patient replied to that by saying simply that he would not allow us to say anything about his care or recommended treatment to her at this time. -There seem to be some early indications that the patient may be responding to olanzapine. Today, when I told him that our concerns about his safety had not to do with his behaviors here in the hospital but, instead, about his behav iors at home (in the community) he quickly responded, "yes, but I am getting medication here!" (He almost immediately realized the implication of what he had just said, and he immediately changed the subject and began talking about how various entities were deliberately provoking him into losing his temper and acting in anger. -The patient tells us that he is using the fact that he has been given intramuscular medications against his will as evidence of our being the "dupes" or agents of the entities behind the conspiracy to silence him. He also reiterates that he believes that taking medication voluntarily is tantamount to acknowledging his need for psychiatric treatment, and he tells us that he has absolutely no psychiatric problem at all and does not need any treatment. -Today, we are increasing his olanzapine's as follows. We will begin olanzapine ODT 10 mg at bedtime starting tonight. We have also changed his order for medications over objection to olanzapine 10 mg IM daily for refusal of p.o. olanzapine. -Although the patient's presentation has many of the symptoms of a delusional disorder, persecutory typegiven the elaborate nature of the delusional system, we continue to suspect that what we are seeing is a somewhat atypical jorge, or discrete manic episodes overlaying a underlying delusional disorder. If the explanation for the patient's presentation is symptoms of a manic episode, his prognosis is better. We discussed the possibility of adding an antiobsessional medication which sometimes helps with pure delusional disorders, but the patient says that, absolutely, he will not take any medication that we offer him voluntarily. 11/22--continue Zyprexa IM hs, continues to refuse family meeting with due to paranoia, refuses 2-3 trial of PO Invega to convert to injectable. 11/23--File for 304 hearing d/t ongoing psychosis, lack of insight, refusal for outpatient treatment or ongoing medication, refusal to involve , and high risk for return to violent behavior if home w/ , whom he believes is part of the conspiracy against him. 11/24 - Continue olanzapine IM, continuing to offer patient PO medication which he is consistently refusing - Pt continues to refuse to involve in conversations regarding discharge and safety planning - 304 hearing scheduled for 11/30; pt continues to be psychotic and remains u nable to engage in productive safety and discharge planing, therefore remains at high risk of harm to sefl or others if he is discharged home in his current state 11/25 - Titrating olanzapine to 10mg daily; patient continues to refuse offer for PO and is therefore continuing to receive IM injections each evening - 304 hearing 11/30; pt continues to be unwilling to participate in safety and discharge planning efforts 11/26 -The patient tells me that he received olanzapine 10 mg last evening and says that he feels that it has helped him sleep better. However, he notes that his sleep difficulty is related to the fact that his sleep schedule in the hospital is substantially different from the one that he is used to at home, with bedtime here at the hospital being 3 or 4 hours earlier than he is used to. Nevertheless, he says that he believes that he is not having any side effects from olanzapine and that, in the sense that it does help him fall asleep, it helps. Nevertheless, he also repeats today that he will not continue to take any medication, including olanzapine, if he is discharged. -I spoke with the patient's today, without disclosing any protected clinical data regarding the patient. She acknowledges that he frightens her, and, particularly recently, has caused her to fear for her personal physical safety. At the same time, she says tells me that she thinks that if she gets some advice about how best to "handle somebody who is delusional" possibly by getting into individual therapy, herself, she may be able to take him home. She also reports that should he be released (she is aware of upcoming hearing) that she will agree to take him home, because she loves him and wants to protect him, but continues to fear that he may again lose control of his behavior as a function of his delusions. -Today, the patient tells me that he recognizes that in his upcoming hearing on 11/30 (304) the issue may boil down to whether he can assure that he will be safe in the community and will not represent a risk to anyone else, even if he does not take medication. He also says that he recognizes the "Catch-22" that he is in because he realizes that the hospital is likely to say that his behavior in the hospital has been positively influenced by his taking olanzapine, and that without the structure of the hospital and without the medications, he may revert to the dangerous behaviors that precipitated the admission. -Of concern is the fact that the patient's tells us today that, effective yesterday, he has told her that he will no longer speak to her tel ephonically, and if he is released from the hospital on Saturday he will simply walk home, and if she is not comfortable being home with him she should leave. However, by the end of today he is allowing that he truly believes that his loves him and would not try to harm him if she had any choice, so he is at least considering contacting her again by telephone. 11/27 -Patient informed of 304 hearing and plan to refer to the [facility], as well as additional labs needed for that referral. -He continues to refuse a family meeting with his , who has expressed ongoing concern for her safety. He continues to refuse p.o. medication, outpatient treatment, and discussion of his aggression at home or plans to mitigate it. He remains at risk of harm to others, particularly his , and if discharged prematurely, as she is implicated in his delusion and he believes she has part of the conspiracy against him. -Encourage the patient to attend groups and focus on his own emotional reaction to his perception of events, healthy coping skills, and a discharge safety plan; all of which thus far he has been unwilling to do. 11/28 - 11/29 -Patient refused PPD, EKG, and chest x-ray for [facility] referral. He is refusing to consider a trial of Invega/MERCADO, and continues to refuse a family meeting. -304 involuntary commitment hearing scheduled for 12/01/2019, and will then pursue referral to the [facility]. 11/30 - 304 involuntary commitment granted today, referral to the [facility] is reportedly supported by the [facility] at this time - Pt was again offered PPD, EKG and CXR for [facility] referral, which he again declined - Although he is not overtly refusing medication changes, he does verbalize desire to give olanzapine "another week" before switching to another agent. 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 He remains delusional and without insight, refusing medication (although getting the IM of Zyprexa daily), a family meeting, or discharge planning/outpatient care. -Recommend referral to [facility] for long-term inpatient treatment, will simultaneously referring for a BCM and working on potential di version plans. 12/02 - Continue IM olanzapine - as continues to refuse oral medications or discussion regarding alternative agents - Most documentation sent to [facility] for referral - awaiting 303 and 304 findings to be sent and will then fax these as well - Pt continues to decline medical tests generally requested as part of [facility] referral, but cannot force these studies to be done 12/03 -We will increase his dose of IM olanzapine to 12.5 mg at bedtime. The medication thus far does not seem to have had much of a favorable impact on the patient's delusional belief system, and he is not willing to consider antiobsessional medications in the form of a selective serotonin reuptake inhibitor. However, the patient is now sleeping better and his general demeanor has been more calm, more pleasant, and more self-possessed. -The patient reports that he does not feel that he is experiencing any side effects from olanzapine, but fall short of saying that it is helping him in any way, other than perhaps for sleep. He mentions that he sometimes has a pain in his left abdominal wall and lower rib cage that he says he does not feel as a side effect from medication but, rather, the result of his doing sit ups and his bedroom by placing his feet under the mattress and exercising in that way. 12/04 - 12/05 -Zyprexa 12.5 mg IM po qhs, sedation from yesterday seems to be resolving, can likely be increased tomorrow. 12/06 - Continue Zyprexa 12.5mg IM this evening - continue attempts to engage patient in conversation regarding dose increases or consideration of alternative agents - Pt continues to be unwilling to participate in conversation regarding alternative discharge plans to state hospitalization. He continues to refuse to involve his or any other outpatient support in safety/discharge planning. - Referral to [facility] was completed and is reportedly being reviewed. 12/07 - Titrating Zyprexa 15mg IM - patient continues to refuse offer for oral medications. Pt was offered discussion about alternative agents, but declined. - Referral officially received by [facility] on 12/02/2019 (304 findings to be sent once received) - awaiting response regarding acceptance decision - Continue attempts to engage patient in discharge and safety planning - patient continues to be unwilling to discuss possible diversion plans 12/08 - 12/09 - Continue Zyprexa 15mg IM - pt continuing to refuse oral medications - Awaiting response from [facility] regarding referral - Pt remains unwilling to participate in safety planning or exploring diversion plan 12/10 -Patient is exhibiting excess sedation add Zyprexa 15 mg IM at bedtime. Specifically, the patient is observed to be hypersomnolent, has been sleeping off and on throughout the days, and indicates that he feels that at this higher dose of Zyprexa he is experiencing some cognitive slowing. At the same time, he does not seem to be responding to Zyprexa either at high doses or at low doses, other than it may be contributing to his ability to maintain self possession and avoid these sorts of dyscontroled behaviors that precipitated the current admission (for example, breaking furniture, knocking holes in the [place] of his home, and tearing out shards of woodwork and ways that frightened his ). -The patient remains delusional and harbors an elaborate persecutory delusional system that he often hits that, but is reluctant to discuss in detail much of the time because he says that he fears that information that he shares with us will fall into the wrong hands and will interfere with his ability to expose those persons who he feels are responsible for the referenced "crimes against humanity." -The patient when asked, convincingly states that he is not having any thoughts of extracting retribution from the individuals and entities that he holds responsible for his delusional construct regarding "crimes against humanity," other than to expose them by publishing proof of their crimes. Specifically, he says that he has no plan to cause physical harm to the person or property of others and says that he will leave the question of punishment to those who are lawful he entitled to impose it. -Because the patient's delusional belief seem not to be responding favorably to olanzapine at the higher dose, and because he is exhibiting some symptoms of excess sedation associated with olanzapine at 15 mg daily, his dose of olanzapine (to be given IM if necessary for refusal of p.o. olanzapine) will be reduced to olanzapine 10 mg IM at bedtime, starting tonight. 12/11 The patient is less sedated at the 10 mg of olanzapine IM he continues to refuse oral medications. Provider did again re-present the role of an SSRI that may help but he is clear and adamant about refusal of all medications. 12/12 - he is slightly less sedated at 10mg olanzapine IM each hs, but is more agitated today that he had been and more profuse with this provider about his delusional beliefs and seeing this provider and all medical care here as passive pawns of a broader conspiracy through the [employer]. He continues to decline oral medications, or any form of aftercare for monitoring of irritability and agitation maintaining that he does not have any mental illness and that all he has is "truth." Presently his risk of continuing to incorporate anyone who disagrees with his delusion into the delusion, his unwillingness to take medications after discharge, and unwillingness to participate any form of routine relationship with a behavioral health provider after discharge, and incorporation of his in his delusional system with prior physical aggression are concerning. I believe ongoing inpatient hospitalization is most appropriate setting for care at this time 12/13 - Continue olanzapine 10mg IM each evening (patient continues to refuse PO medications or discussion regarding alternative agents. - Pt continues to appear sedated, though is spending more time out of his room in the afternoons. - Anticipate decision regarding [facility] referral in the next few days 12/14 - Continue current treatment plan, patient reporting improvement in fatigue today - Anticipate update from [facility] soon regarding decision on referral - Pt continues to be resistant to attempts to safety plan or discuss alternative discharge options 12/15 - Continue current treatment plan - patient reports he is better tolerating lower dose of olanzapine but still reports daytime fatigue - Explanation provided to patient regarding request for MRI, heavy metal studies, B12, and folate - patient is persistent in his unwillingness to have these studies completed at this time - Will attempt to gather more information regarding reports of a previous MRI - Could consider cognitive assessment such as MoCA - as patient was limited in his willingness to even discuss superficial details with this provider, cognitive assessment was not attempted today - Pt went outside with staff this afternoon - continue to offer intermittently and assess the appropriateness of his presentation 12/16 - Continue current treatment plan - olanzapine 10mg qHS. Pt continues to refuse PO medications but tolerates IM injections without incident - Pt again unwilling to consider studies to rule out organic causes for the presence of delusions. Although organic cause was questioned during initial admission, it appears less likely to be the case but of course cannot be entirely ruled out without patient's willingness to participate in these studies. History obtained from patient and suggest a long history of OCD characteristics and paranoia that appear to have developed into delusional and persecutory thinking. - Pt remains resistant to participating in appropriate safety and discharge planning and continues to refuse to involve in these steps. - Awaiting decision from [facility] regarding his referral, it continues to be the opinion of our treatment team that patient is an appropriate candidate for long-term hospitalization 12/17 - Continue current treatment plan. Pt escorted outside by staff today. - Received word that patient has been accepted to [facility]. They require that 304 reflect commitment being changed to their facility prior to being able to formally put patient on their waitlist. These changes [place] been requested through the county. 12/18--Continue current meds and treatment plan. terfinafine as above. 12/19 - 12/20--Continue current meds and treatment plan. 12/21 - Continue current treatment plan - pt reports he is tolerating 7.5mg dose of olanzapine better - Pt formally placed on waitlist for [facility] today - updated 304 was received from the [facility] and faxed to [facility] 12/22 - 12/23 - Continue current medications and treatment plan 12/24 -Patient reports that he feels that he is tolerating olanzapine 7.5 mg IM at bedtime fairly well, and notes that the adverse effect of excess somnolence that he was experiencing at higher doses has essentially resolved. The treatment team agrees that the patient has been more alert and, but he continues to refuse to attend groups. -Attempts to appeal to the patient's logic remain unsuccessful, which is quite typical of delusional disorder. However, he has not been able to neutralize data that seem to contradict his highly systematized delusional system, and when this occurs he tends to become surprisingly concrete with responses such as "well, I guess that only means I am a raving lunatic" or "look, I know what I know. These things are real, no matter what anyone says." -The patient's brother has contacted the treatment team. 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 The patient's brother reports that he, the brother, and their mother and the patient's for all researching alternatives to long-term psychiatric hospitalization [facility] a [facility]. While we would love to see that happen, it seems unlikely given the fact that the patient is completely lacking in insight and completely unwilling to participate in any form of psychiatric treatment voluntarily. 12/25 - Continue current medications and treatment plan - Pt states family has offered suggestions for alternative treatment settings to the [facility], but patient had had no motivation to discuss these further - Pt maintains highly sophisticated and fixed delusional thought content 12/26 - Continue current medications and treatment plan - Awaiting bed date from [facility]; patient officially on waitlist 12/27 - Continue olanzapine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
[2020-01-04] MEDS: MULTIVITAMIN PO SCH (09:06)
[2020-01-04] MEDS: TERBINAFINE CR 30 GM TUBE EXT SCH ×2 (09:06→20:58)
[2020-01-05] MEDS: MULTIVITAMIN PO SCH (08:34)
[2020-01-05] MEDS: TERBINAFINE CR 30 GM TUBE EXT SCH ×2 (08:35→20:41)
--- NOTE | 2020-01-05 10:14 | Psychiatric Progress Note ---
Date of Service January 05, 2020 Impression / Recommendations Impression Olanzapine has been held as of 01/01/2020 as trial, and although he has maintained behavioral control, paranoia appears to be worsening. He had demonstrated some increased willingness to participate in his care, and agreed to a discharge planning meeting with his , but has since changed his mind and is unwilling to sign a release or give verbal consent, which appears to be triggered by increasing paranoia. He remains on a 304 involuntary commitment, and inpatient treatment is medically necessary due to the severity of his symptoms and risk for harm to others if discharged. He has been accepted at [facility] and we are still awaiting a bed date. Will need to consider reinstituting medications over objection. (1) Delusional disorder: 11/14 Patient admitted on an involuntary status to the behavioral health unit for continued assessment and treatment as indicated He will be maintained on every 15 minute safety checks We will continue to expand database Consider neuroimaging for w/u of psychosis prn orders for Ativan and Haldol today. I suspect it is likely that he will require medications over objection before he permits any treatment due to what appears to be severely impaired insight. Patient will be reevaluated tomorrow for psychiatric second opinion regarding need for treatment over objection. -presently patient requires continued inpatient hospitalization for workup and treatment of psychosis which was been recently associated with some violent behavior at home. he is at risk of harm to self and others if discharged prematurely. 11/15 -File for 303 involuntary commitment. -Patient is refusing to consider medication, but has haloperidol and Ativan as needed ordered. Would recommend a trial of olanzapine, and agree with medications over objection as he has severe psychotic symptoms which are impairing his ability to function and placing both himself and others at risk of harm due to his violent behavior at home. -Patient is refused to answer questions about whether or not he has guns, so we will need to get this information from his . At this point he is refusing to sign a release for her or anyone else. -Excuse patient from groups due to the severity of his psychosis and violent behavior. Medically necessary private room room due to the same. 11/16 -303 involuntary commitment granted. -Patient continues to refuse to allow his to be involved in treatment. He is now not denying that he was aggressive at home, but is refusing to discuss it, and is focused only on the conspiracy which he says led to his behavior. -Continue to consider medications over objection. At this point, we are attempting to engage the patient in treatment volitionally, and the risk of forcing medications at this time is further alienating him. However, if he is unable to engage in any manner, we will need to reconsider medications over objection. -Patient may attend groups if able to maintain appropriate behavioral control. -Patient has still not been willing to complete admission assessments, and has not been willing to provide certain information. 4/ -Recommend medications over objection, as the patient is unable to engage in treatment due to the severity of his psychosis and lack of insight, and remains at imminent risk of harm to others, specifically his , if his symptoms remain untreated. He is floridly delusional, now implicating hospital staff in his delusions. He is not able to work as a result of his psychosis, and his is not able to work due to having to supervise him, and is fearful of him given his escalating violence at home. He continues to refuse to allow her to be involved in treatment, is not attending groups, and is refusing to even discuss medication options. Dr. Duarte recommended medications over objection, and I agree, as the patient is unlikely to improve without antipsychotic medication. -Start olanzapine Zydis 5 mg daily, with a 5 mg IM backup for refusal. Order FLP and FG tomorrow for baseline on an atypical antipsychotic. He will also need a medical work-up of psychosis once he is more cooperative, including brain MRI. -Ongoing poor sleep, staff will limit bright lights near his room at night, and if he can be compliant with medication, can move olanzapine to bedtime to assist with sleep. Giving during the day initially to allow for adequate staff in case of need for physical hold or restraint to receive medication. 4/2 - Continue olanzapine 5mg daily (offering PO Zydis with IM for refusal) - medications over objection, though patient has been cooperative with his preference for IM administration - Pt offered again PO olanzapine, with the eventual option of converting the medication to HS dosing if he continues to be cooperative - as he reports sedation after receiving the medication - Pt remains delusional and paranoid, unable to discuss examples of how we can assist him during his stay - Maintain MNPR due to level of psychosis - Fasting glucose - wnl at 90; triglycerides elevated at 188, remainder of lipid panel wnl - Continue attempts to coordinate care with patient's 11/19 -Patient is continuing to say that he does not wish for us to speak with his , and he again tells us that he will not sign a consent that will allow us to contact her. As above, his assertion is that he does not want us talking to her because she may tell us things that we will include in the record and that will eventually be used against him, either by the government or by [facility]. As a compromise, the patient says that he will ask his to call us and tell us whether she continues to feel that he is a danger to her, himself, or to anyone else. It was explained that we would also need to be able to talk to her about our concerns and we would need to coordinate aftercare arrangements with her. The patient replied to that by saying simply that he would not allow us to say anything about his care or recommended treatment to her at this time. -There seem to be some early indications that the patient may be responding to olanzapine. Today, when I told him that our concerns about his safety had not to do with his behaviors here in the hospital but, instead, about his behaviors at home (in the community) he quickly responded, "yes, but I am getting medication here!" (He almost immediately realized the implication of what he had just said, and he immediately changed the subject and began talking about how various entities were deliberately provoking him into losing his temper and acting in anger. -The patient tells us that he is using the fact that he has been given intramuscular medications against his will as evidence of our being the "dupes" or agents of the entities behind the conspiracy to silence him. He also reiterates that he believes that taking medication voluntarily is tantamount to acknowledging his need for psychiatric treatment, and he tells us that he has absolutely no psychiatric problem at all and does not need any treatment. -Today, we are increasing his olanzapine's as follows. We will begin olanzapine ODT 10 mg at bedtime starting tonight. We have also changed his order for medications over objection to olanzapine 10 mg IM daily for refusal of p.o. olanzapine. -Although the patient's presentation has many of the symptoms of a delusional disorder, persecutory typegiven the elaborate nature of the delusional system, we continue to suspect that what we are seeing is a somewhat atypical jorge, or discrete manic episodes overlaying a underlying delusional disorder. If the explanation for the patient's presentation is symptoms of a manic episode, his prognosis is better. We discussed the possibility of adding an antiobsessional medication which sometimes helps with pure delusional disorders, but the patient says that, absolutely, he will not take any medication that we offer him voluntarily. 11/22--continue Zyprexa IM hs, continues to refuse family meeting with due to paranoia, refuses 2-3 trial of PO Invega to convert to injectable. 11/23--File for 304 hearing d/t ongoing psychosis, lack of insight, refusal for outpatient treatment or ongoing medication, refusal to involve , and high risk for return to violent behavior if home w/ , whom he believes is part of the conspiracy against him. 11/24 - Continue olanzapine IM, continuing to offer patient PO medication which he is consistently refusing - Pt continues to refuse to involve in conversations regarding discharge and safety planning - 304 hearing scheduled for 11/30; pt continues to be psychotic and remains unable to engage in productive safety and discharge planing, therefore remains at high risk of harm to sefl or others if he is discharged home in his current state 11/25 - Titrating olanzapine to 10mg daily; patient continues to refuse offer for PO and is therefore continuing to receive IM injections each evening - 304 hearing 11/30; pt continues to be unwilling to participate in safety and discharge planning efforts 11/26 -The patient tells me that he received olanzapine 10 mg last evening and says that he feels that it has helped him sleep better. However, he notes that his sleep difficulty is related to the fact that his sleep schedule in the hospital is substantially different from the one that he is used to at home, with bedtime here at the hospital being 3 or 4 hours earlier than he is used to. Nevertheless, he says that he believes that he is not having any side effects from olanzapine and that, in the sense that it does help him fall asleep, it helps. Nevertheless, he also repeats today that he will not continue to take any medication, including olanzapine, if he is discharged. -I spoke with the patient's today, without disclosing any protected clinical data regarding the patient. She acknowledges that he frightens her, and, particularly recently, has caused her to fear for her personal physical safety. At the same time, she says tells me that she thinks that if she gets some advice about how best to "handle somebody who is delusional" possibly by getting into individual therapy, herself, she may be able to take him home. She also reports that should he be released (she is aware of upcoming hearing) that she will agree to take him home, because she loves him and wants to protect him, but continues to fear that he may again lose control of his behavior as a function of his delusions. -Today, the patient tells me that he recognizes that in his upcoming hearing on 11/30 (304) the issue may boil down to whether he can assure that he will be safe in the community and will not represent a risk to anyone else, even if he does not take medication. He also says that he recognizes the "Catch-22" that he is in because he realizes that the hospital is likely to say that his behavior in the hospital has been positively influenced by his taking sharita nzapine, and that without the structure of the hospital and without the medications, he may revert to the dangerous behaviors that precipitated the admission. -Of concern is the fact that the patient's tells us today that, effective yesterday, he has told her that he will no longer speak to her telephonically, and if he is released from the hospital on Saturday he will simply walk home, and if she is not comfortable being home with him she should leave. However, by the end of today he is allowing that he truly believes that his loves him and would not try to harm him if she had any choice, so he is at least considering contacting her again by telephone. 11/27 -Patient informed of 304 hearing and plan to refer to the [facility], as well as additional labs needed for that referral. -He continues to refuse a family meeting with his , who has expressed ongoing concern for her safety. He continues to refuse p.o. medication, outpatient treatment, and discussion of his aggression at home or plans to mitigate it. He remains at risk of harm to others, particularly his , and if discharged prematurely, as she is implicated in his delusion and he believes she has part of the conspiracy against him. -Encourage the patient to attend groups and focus on his own emotional reaction to his perception of events, healthy coping skills, and a discharge safety plan; all of which thus far he has been unwilling to do. 11/28 - 11/29 -Patient refused PPD, EKG, and chest x-ray for state hospital referral. He is refusing to consider a trial of Invega/MERCADO, and continues to refuse a family meeting. -304 involuntary commitment hearing scheduled for 12/01/2019, and will then pursue referral to the [facility]. 11/30 - 304 involuntary commitment granted today, referral to the [facility] is reportedly supported by the [facility] at this time - Pt was again offered PPD, EKG and CXR for [facility] referral, which he again declined - Although he is not overtly refusing medication changes, he does verbalize desire to give olanzapine "another week" before switching to another agent. 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 He remains delusional and without insight, refusing medication (although getting the IM of Zyprexa daily), a family meeting, or discharge planning/outpatient care. -Recommend referral to [facility] for long-term inpatient treatment, will simultaneously referring for a BCM and working on potential diversion plans. 12/02 - Continue IM olanzapine - as continues to refuse oral medications or dis cussion regarding alternative agents - Most documentation sent to [facility] for referral - awaiting 303 and 304 findings to be sent and will then fax these as well - Pt continues to decline medical tests generally requested as part of [facility] referral, but cannot force these studies to be done 12/03 -We will increase his dose of IM olanzapine to 12.5 mg at bedtime. The med ication thus far does not seem to have had much of a favorable impact on the patient's delusional belief system, and he is not willing to consider antiobsessional medications in the form of a selective serotonin reuptake inhibitor. However, the patient is now sleeping better and his general demeanor has been more calm, more pleasant, and more self-possessed. -The patient reports that he does not feel that he is experiencing any side effects from olanzapine, but fall short of saying that it is helping him in any way, other than perhaps for sleep. He mentions that he sometimes has a pain in his left abdominal wall and lower rib cage that he says he does not feel as a side effect from medication but, rather, the result of his doing sit ups and his bedroom by placing his feet under the mattress and exercising in that way. 12/04 - 12/05 -Zyprexa 12.5 mg IM po qhs, sedation from yesterday seems to be resolving, can likely be increased tomorrow. 12/06 - Continue Zyprexa 12.5mg IM this evening - continue attempts to engage patient in conversation regarding dose increases or consideration of alternative agents - Pt continues to be unwilling to participate in conversation regarding alte rnative discharge plans to [facility]. He continues to refuse to involve his or any other outpatient support in safety/discharge planning. - Referral to [facility] was completed and is reportedly being reviewed. 12/07 - Titrating Zyprexa 15mg IM - patient continues to refuse offer for oral medications. Pt was offered discussion about alternative agents, but declined. - Referral officially received by [facility] on 12/02/2019 (304 findings to be sent once received) - awaiting response regarding acceptance decision - Continue attempts to engage patient in discharge and safety planning - patient continues to be unwilling to discuss possible diversion plans 12/08 - 12/09 - Continue Zyprexa 15mg IM - pt continuing to refuse oral medications - Awaiting response from [facility] regarding referral - Pt remains unwilling to participate in safety planning or exploring diversion plan 12/10 -Patient is exhibiting excess sedation add Zyprexa 15 mg IM at bedtime. Specifically, the patient is observed to be hypersomnolent, has been sleeping off and on throughout the days, and indicates that he feels that at this higher dose of Zyprexa he is experiencing some cognitive slowing. At the same time, he does not seem to be responding to Zyprexa either at high doses or at low doses, other than it may be contributing to his ability to maintain self possession and avoid these sorts of dyscontroled behaviors that precipitated the current admission (for example, breaking furniture, knocking holes in the [place] of his home, and tearing out shards of woodwork and ways that frightened his ). -The patient remains delusional and harbors an elaborate persecutory delusional system that he often hits that, but is reluctant to discuss in detail much of the time because he says that he fears that information that he shares with us will fall into the wrong hands and will interfere with his ability to expose those persons who he feels are responsible for the referenced "crimes against humanity." -The patient when asked, convincingly states that he is not having any thoughts of extracting retribution from the individuals and entities that he holds responsible for his delusional construct regarding "crimes against humanity," other than to expose them by publishing proof of their crimes. Specifically, he says that he has no plan to cause physical harm to the person or property of others and says that he will leave the question of punishment to those who are lawful he entitled to impose it. -Because the patient's delusional belief seem not to be responding favorably to olanzapine at the higher dose, and because he is exhibiting some symptoms of excess sedation associated with olanzapine at 15 mg daily, his dose of ol anzapine (to be given IM if necessary for refusal of p.o. olanzapine) will be reduced to olanzapine 10 mg IM at bedtime, starting tonight. 12/11 The patient is less sedated at the 10 mg of olanzapine IM he continues to refuse oral medications. Provider did again re-present the role of an SSRI that may help but he is clear and adamant about refusal of all medications. 12/12 - he is slightly less sedated at 10mg olanzapine IM each hs, but is more agitated today that he had been and more profuse with this provider about his delusional beliefs and seeing this provider and all medical care here as passive pawns of a broader conspiracy through the [employer]. He continues to decline oral medications, or any form of aftercare for monitoring of irritability and agitation maintaining that he does not have any mental illness and that all he has is "truth." Presently his risk of continuing to incorporate anyone who disagrees with his delusion into the delusion, his unwillingness to take medications after discharge, and unwillingness to participate any form of routine relationship with a behavioral health provider after discharge, and incorporation of his in his delusional system with prior physical aggression are concerning. I believe ongoing inpatient hospitalization is most appropriate setting for care at this time 12/13 - Continue olanzapine 10mg IM each evening (patient continues to refuse PO medications or discussion regarding alternative agents. - Pt continues to appear sedated, though is spending more time out of his room in the afternoons. - Anticipate decision regarding [facility] referral in the next few days 12/14 - Continue current treatment plan, patient reporting improvement in fatigue today - Anticipate update from [facility] soon regarding decision on referral - Pt continues to be resistant to attempts to safety plan or discuss alternative discharge options 12/15 - Continue current treatment plan - patient reports he is better tolerating lower dose of olanzapine but still reports daytime fatigue - Explanation provided to patient regarding request for MRI, heavy metal studies, B12, and folate - patient is persistent in his unwillingness to have these studies completed at this time - Will attempt to gather more information regarding reports of a previous MRI - Could consider cognitive assessment such as MoCA - as patient was limited in his willingness to even discuss superficial details with this provider, cognitive assessment was not attempted today - Pt went outside with staff this afternoon - continue to offer intermittently and assess the appropriateness of his presentation 12/16 - Continue current treatment plan - olanzapine 10mg qHS. Pt continues to refuse PO medications but tolerates IM injections without incident - Pt again unwilling to consider studies to rule out organic causes for the presence of delusions. Although organic cause was questioned during initial adm ission, it appears less likely to be the case but of course cannot be entirely ruled out without patient's willingness to participate in these studies. History obtained from patient and suggest a long history of OCD characteristics and paranoia that appear to have developed into delusional and persecutory thinking. - Pt remains resistant to participating in appropriate safety and discharge planning and continues to refuse to involve in these steps. - Awaiting decision from [facility] regarding his referral, it continues to be the opinion of our treatment team that patient is an appropriate candidate for long-term hospitalization 5/1 - Continue current treatment plan. Pt escorted outside by staff today. - Received word that patient has been accepted to [facility]. They require that 304 reflect commitment being changed to their facility prior to being able to formally put patient on their waitlist. These changes have been requested through the [facility]. 12/18--Continue current meds and treatment plan. terfinafine as above. 12/19 - 12/20--Continue current meds and treatment plan. 12/21 - Continue current treatment plan - pt reports he is tolerating 7.5mg dose of olanzapine better - Pt formally placed on waitlist for [facility] today - updated 304 was received from the [facility] and faxed to [facility] 12/22 - 12/23 - Continue current medications and treatment plan 12/24 -Patient reports that he feels that he is tolerating olanzapine 7.5 mg IM at bedtime fairly well, and notes that the adverse effect of excess somnolence that he was experiencing at higher doses has essentially resolved. The treatment team agrees that the patient has been more alert and, but he continues to refuse to attend groups. -Attempts to appeal to the patient's logic remain unsuccessful, which is quite typical of delusional disorder. However, he has not been able to neutralize data that seem to contradict his highly systematized delusional syst em, and when this occurs he tends to become surprisingly concrete with responses such as "well, I guess that only means I am a raving lunatic" or "look, I know what I know. These things are real, no matter what anyone says." -The patient's brother has contacted the treatment team. 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 The patient's brother reports that he, the brother, and their mother and the patient's for all researching alternatives to long-term psychiatric hospitalization in a [facility]. While we would love to see that happen, it seems unlikely given the fact that the patient is completely lacking in insight and completely unwilling to participate in any form of psychiatric treatment voluntarily. 12/25 - Continue current medications and treatment plan - Pt states family has offered suggestions for alternative treatment settings to the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
[2020-01-05] MEDS: OLANZapine 5 MG TABLET PO SCH (22:01)
[2020-01-06] MEDS: TERBINAFINE CR 30 GM TUBE EXT SCH ×2 (08:47→20:25)
[2020-01-06] MEDS: MULTIVITAMIN PO SCH (08:48)
--- NOTE | 2020-01-06 09:15 | Psychiatric Progress Note ---
Date of Service January 06, 2020 Impression / Recommendations Impression Olanzapine has been held as of 01/01/2020 as trial, and although he has maintained behavioral control, paranoia appears to be worsening. He had demonstrated some increased willingness to participate in his care, and agreed to a discharge planning meeting with his , but has since changed his mind and is unwilling to sign a release or give verbal consent, which appears to be triggered by increasing paranoia. He remains on a 304 involuntary commitment, and inpatient treatment is medically necessary due to the severity of his symptoms and risk for harm to others if discharged. He has been accepted at [facility] and we are still awaiting a bed date - possibility of "early January", with patient requiring 2 negative COVID-19 tests prior to transfer. Will need to consider reinstituting medications over objection. (1) Delusional disorder: 11/14 Patient admitted on an involuntary status to the behavioral health unit for continued assessment and treatment as indicated He will be maintained on every 15 minute safety checks We will continue to expand database Consider neuroimaging for w/u of psychosis prn orders for Ativan and Haldol today. I suspect it is likely that he will require medications over objection before he permits any treatment due to what appears to be severely impaired insight. Patient will be reevaluated tomorrow for psychiatric second opinion regarding need for treatment over objection. -presently patient requires continued inpatient hospitalization for workup and treatment of psychosis which was been recently associated with some violent behavior at home. he is at risk of harm to self and others if discharged prematurely. 11/15 -File for 303 involuntary commitment. -Patient is refusing to consider medication, but has haloperidol and Ativan as needed ordered. Would recommend a trial of olanzapine, and agree with medications over objection as he has severe psychotic symptoms which are impairing his ability to function and placing both himself and others at risk of harm due to his violent behavior at home. -Patient is refused to answer questions about whether or not he has guns, so we will need to get this information from his . At this point he is refusing to sign a release for her or anyone else. -Excuse patient from groups due to the severity of his psychosis and violent behavior. Medically necessary private room room due to the same. 11/16 -303 involuntary commitment granted. -Patient continues to refuse to allow his to be involved in treatment. He is now not denying that he was aggressive at home, but is refusing to discuss it, and is focused only on the conspiracy which he says led to his behavior. -Continue to consider medications over objection. At this point, we are atte mpting to engage the patient in treatment volitionally, and the risk of forcing medications at this time is further alienating him. However, if he is unable to engage in any manner, we will need to reconsider medications over objection. -Patient may attend groups if able to maintain appropriate behavioral control. -Patient has still not been willing to complete admission assessments, and has not been willing to provide certain information. 11/17 -Recommend medications over objection, as the patient is unable to engage in treatment due to the severity of his psychosis and lack of insight, and remains at imminent risk of harm to others, specifically his , if his symptoms remain untreated. He is floridly delusional, now implicating hospital staff in his delusions. He is not able to work as a result of his psychosis, and his is not able to work due to having to supervise him, and is fearful of him given his escalating violence at home. He continues to refuse to allow her to be involved in treatment, is not attending groups, and is refusing to even discuss medication options. Dr. Duarte recommended medications over objection, and I agree, as the patient is unlikely to improve without antipsychotic medication. -Start olanzapine Zydis 5 mg daily, with a 5 mg IM backup for refusal. Order FLP and FG tomorrow for baseline on an atypical antipsychotic. He will also need a medical work-up of psychosis once he is more cooperative, including brain MRI. -Ongoing poor sleep, staff will limit bright lights near his room at night, and if he can be compliant with medication, can move olanzapine to bedtime to assist with sleep. Giving during the day initially to allow for adequate staff in case of need for physical hold or restraint to receive medication. 11/18 - Continue olanzapine 5mg daily (offering PO Zydis with IM for refusal) - medications over objection, though patient has been cooperative with his preference for IM administration - Pt offered again PO olanzapine, with the eventual option of converting the medication to HS dosing if he continues to be cooperative - as he reports sedation after receiving the medication - Pt remains delusional and paranoid, unable to discuss examples of how we can assist him during his stay - Maintain MNPR due to level of psychosis - Fasting glucose - wnl at 90; triglycerides elevated at 188, remainder of lipid panel wnl - Continue attempts to coordinate care with patient's / -Patient is continuing to say that he does not wish for us to speak with his , and he again tells us that he will not sign a consent that will allow us to contact her. As above, his assertion is that he does not want us talking to her because she may tell us things that we will include in the record and that will eventually be used against him, either by the government or by [facility]. As a compromise, the patient says that he will ask his to call us and tell us whether she continues to feel that he is a danger to her, himself, or to anyone else. It was explained that we would also need to be able to talk to her about our concerns and we would need to coordinate aftercare arrangements with her. The patient replied to that by saying simply that he would not allow us to say anything about his care or recommended treatment to her at this time. -There seem to be some early indications that the patient may be responding to olanzapine. Today, when I told him that our concerns about his safety had not to do with his behaviors here in the hospital but, instead, about his behaviors at home (in the community) he quickly responded, "yes, but I am getting medication here!" (He almost immediately realized the implication of what he had just said, and he immediately changed the subject and began talking about how various entities were deliberately provoking him into losing his temper and acting in anger. -The patient tells us that he is using the fact that he has been given intramuscular medications against his will as evidence of our being the "dupes" or agents of the entities behind the conspiracy to silence him. He also reiterates that he believes that taking medication voluntarily is tantamount to acknowledging his need for psychiatric treatment, and he tells us that he has absolutely no psychiatric problem at all and does not need any treatment. -Today, we are increasing his olanzapine's as follows. We will begin olanzapine ODT 10 mg at bedtime starting tonight. We have also changed his order for medications over objection to olanzapine 10 mg IM daily for refusal of p.o. olanzapine. -Although the patient's presentation has many of the symptoms of a delusional disorder, persecutory typegiven the elaborate nature of the delusional system, we continue to suspect that what we are seeing is a somewhat atypical jorge, or discrete manic episodes overlaying a underlying delusional disorder. If the explanation for the patient's presentation is symptoms of a manic episode, his prognosis is better. We discussed the possibility of adding an antiobsessional medication which sometimes helps with pure delusional disorders, but the patient says that, absolutely, he will not take any medication that we offer him voluntarily. 11/22--continue Zyprexa IM hs, continues to refuse family meeting with due to paranoia, refuses 2-3 trial of PO Invega to convert to injectable. 11/23--File for 304 hearing d/t ongoing psychosis, lack of insight, refusal for outpatient treatment or ongoing medication, refusal to involve , and high risk for return to violent behavior if home w/ , whom he believes is part of the conspiracy against him. 11/24 - Continue olanzapine IM, continuing to offer patient PO medication which he is consistently refusing - Pt continues to refuse to involve in conversations regarding discharge and safety planning - 304 hearing scheduled for 11/30; pt continues to be psychotic and remains unable to engage in productive safety and discharge planing, therefore remains at high risk of harm to sefl or others if he is discharged home in his current state 11/25 - Titrating olanzapine to 10mg daily; patient continues to refuse offer for PO and is therefore continuing to receive IM injections each evening - 304 hearing 11/30; pt continues to be unwilling to participate in safety and discharge planning efforts 11/26 -The patient tells me that he received olanzapine 10 mg last evening and says that he feels that it has helped him sleep better. However, he notes that his sleep difficulty is related to the fact that his sleep schedule in the hospital is substantially different from the one that he is used to at home, with bedtime here at the hospital being 3 or 4 hours earlier than he is used to. Nevertheless, he says that he believes that he is not having any side effects from olanzapine and that, in the sense that it does help him fall asleep, it helps. Nevertheless, he also repeats today that he will not continue to take any medication, including olanzapine, if he is discharged. -I spoke with the patient's today, without disclosing any protected clinical data regarding the patient. She acknowledges that he frightens her, and, particularly recently, has caused her to fear for her personal physical safety. At the same time, she says tells me that she thinks that if she gets some advice about how best to "handle somebody who is delusional" possibly by getting into individual therapy, herself, she may be able to take him home. She also reports that should he be released (she is aware of upcoming hearing) that she will agree to take him home, because she loves him and wants to protect him, but continues to fear that he may again lose control of his behavior as a function of his delusions. -Today, the patient tells me that he recognizes that in his upcoming hearing on 11/30 (304) the issue may boil down to whether he can assure that he will be safe in the community and will not represent a risk to anyone else, even if he does not take medication. He also says that he recognizes the "Catch-22" that he is in because he realizes that the hospital is likely to say that his behavior in the hospital has been positively influenced by his taking olanzapine, and that without the structure of the hospital and without the medications, he may revert to the dangerous behaviors that precipitated the admission. -Of concern is the fact that the patient's tells us today that, effective yesterday, he has told her that he will no longer speak to her telephonically, and if he is released from the hospital on Saturday he will simply walk home, and if she is not comfortable being home with him she should leave. However, by the end of today he is allowing that he truly believes that his loves him and would not try to harm him if she had any choice, so he is at least considering contacting her again by telephone. 11/27 -Patient informed of 304 hearing and plan to refer to the [facility], as well as additional labs needed for that referral. -He continues to refuse a family meeting with his , who has expressed ongoing concern for her safety. He continues to refuse p.o. medication, outpatient treatment, and discussion of his aggression at home or plans to mitigate it. He remains at risk of harm to others, particularly his , and if discharged prematurely, as she is implicated in his delusion and he believes she has part of the conspiracy against him. -Encourage the patient to attend groups and focus on his own emotional reaction to his perception of events, healthy coping skills, and a discharge safety plan; all of which thus far he has been unwilling to do. 11/28 - 11/29 -Patient refused PPD, EKG, and chest x-ray for replaced by [facility] referral. He is refusing to consider a trial of Invega/MERCADO, and continues to refuse a family meeting. -304 involuntary commitment hearing scheduled for 12/01/2019, and will then pursue referral to the [facility]. 11/30 - 304 involuntary commitment granted today, referral to the [facility] is reportedly supported by the [facility] at this time - Pt was again offered PPD, EKG and CXR for [facility] referral, which he again declined - Although he is not overtly refusing medication changes, he does verbalize desire to give olanzapine "another week" before switching to another agent. 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 He remains delusional and without insight, refusing medication (although getting the IM of Zyprexa daily), a family meeting, or discharge planning/outpatient care. -Recommend referral to [facility] for long-term inpatient treatment, will simultaneously referring for a BCM and working on potential diversion plans. 12/02 - Continue IM olanzapine - as continues to refuse oral medications or discussion regarding alternative agents - Most documentation sent to [facility] for referral - awaiting 303 and 304 findings to be sent and will then fax these as well - Pt continues to decline medical tests generally requested as part of [facility] referral, but cannot force these studies to be done 12/03 -We will increase his dose of IM olanzapine to 12.5 mg at bedtime. The medication thus far does not seem to have had much of a favorable impact on the patient's delusional belief system, and he is not willing to consider antiobsessional medications in the form of a selective serotonin reuptake inhibitor. However, the patient is now sleeping better and his general demeanor has been more calm, more pleasant, and more self-possessed. -The patient reports that he does not feel that he is experiencing any side effects from olanzapine, but fall short of saying that it is helping him in any way, other than perhaps for sleep. He mentions that he sometimes has a pain in his left abdominal wall and lower rib cage that he says he does not feel as a side effect from medication but, rather, the result of his doing sit ups and his bedroom by placing his feet under the mattress and exercising in that way. 12/04 - 12/05 -Zyprexa 12.5 mg IM po qhs, sedation from yesterday seems to be resolving, can likely be increased tomorrow. 12/06 - Continue Zyprexa 12.5mg IM this evening - continue attempts to engage patient in conversation regarding dose increases or consideration of alternative agents - Pt continues to be unwilling to participate in conversation regarding alternative discharge plans to [facility]. He continues to refuse to involve his or any other outpatient support in safety/discharge planning. - Referral to [facility] was completed and is reportedly being reviewed. 12/07 - Titrating Zyprexa 15mg IM - patient continues to refuse offer for oral medications. Pt was offered discussion about alternative agents, but declined. - Referral officially received by [facility] on 12/02/2019 (304 findings to be sent once received) - awaiting response regarding acceptance decision - Continue attempts to engage patient in discharge and safety planning - patient continues to be unwilling to discuss possible diversion plans 12/08 - 12/09 - Continue Zyprexa 15mg IM - pt continuing to refuse oral medications - Awaiting response from [facility] regarding referral - Pt remains unwilling to participate in safety planning or exploring diversion plan 12/10 -Patient is exhibiting excess sedation add Zyprexa 15 mg IM at bedtime. Specifically, the patient is observed to be hypersomnolent, has been sleeping off and on throughout the days, and indicates that he feels that at this higher dose of Zyprexa he is experiencing some cognitive slowing. At the same time, he does not seem to be responding to Zyprexa either at high doses or at low doses, other than it may be contributing to his ability to maintain self possession and avoid these sorts of dyscontroled behaviors that precipitated the current admission (for example, breaking furniture, knocking holes in the [place] of his home, and tearing out shards of woodwork and ways that frightened his ). -The patient remains delusional and harbors an elaborate persecutory delusional system that he often hits that, but is reluctant to discuss in detail much of the time because he says that he fears that information that he shares with us will fall into the wrong hands and will interfere with his ability to expose those persons who he feels are responsible for the referenced "crimes against humanity." -The patient when asked, convincingly states that he is not having any thoughts of extracting retribution from the individuals and entities that he holds responsible for his delusional construct regarding "crimes against humanity," other than to expose them by publishing proof of their crimes. Specifically, he says that he has no plan to cause physical harm to the person or property of others and says that he will leave the question of punishment to those who are lawful he entitled to impose it. -Because the patient's delusional belief seem not to be responding favorably to olanzapine at the higher dose, and because he is exhibiting some symptoms of excess sedation associated with olanzapine at 15 mg daily, his dose of olanzapine (to be given IM if necessary for refusal of p.o. olanzapine) will be reduced to olanzapine 10 mg IM at bedtime, starting tonight. 12/11 The patient is less sedated at the 10 mg of olanzapine IM he continues to refuse oral medications. Provider did again re-present the role of an SSRI that may help but he is clear and adamant about refusal of all medications. 12/12 - he is slightly less sedated at 10mg olanzapine IM each hs, but is more agitated today that he had been and more profuse with this provider about his delusional beliefs and seeing this provider and all medical care here as passive pawns of a broader conspiracy through the [employer]. He continues to decline oral medications, or any form of aftercare for monitoring of irritability and agitation maintaining that he does not have any mental illness and that all he has is "truth." Presently his risk of continuing to incorporate anyone who disagrees with his delusion into the delusion, his unwillingness to take medications after discharge, and unwillingness to participate any form of routine relationship with a behavioral health provider after discharge, and incorporation of his in his delusional system with prior physical aggression are concerning. I believe ongoing inpatient hospitalization is most appropriate setting for care at this time 12/13 - Continue olanzapine 10mg IM each evening (patient continues to refuse PO medications or discussion regarding alternative agents. - Pt continues to appear sedated, though is spending more time out of his room in the afternoons. - Anticipate decision regarding [facility] referral in the next few days 12/14 - Continue current treatment plan, patient reporting improvement in fatigue today - Anticipate update from [facility] soon regarding decision on referral - Pt continues to be resistant to attempts to safety plan or discuss alternative discharge options 12/15 - Continue current treatment plan - patient reports he is better tolerating lower dose of olanzapine but still reports daytime fatigue - Explanation provided to patient regarding request for MRI, heavy metal studies, B12, and folate - patient is persistent in his unwillingness to have these studies completed at this time - Will attempt to gather more information regarding reports of a previous MRI - Could consider cognitive assessment such as MoCA - as patient was limited in his willingness to even discuss superficial details with this provider, cognitive assessment was not attempted today - Pt went outside with staff this afternoon - continue to offer intermittently and assess the appropriateness of his presentation 12/16 - Continue current treatment plan - olanzapine 10mg qHS. Pt continues to refuse PO medications but tolerates IM injections without incident - Pt again unwilling to consider studies to rule out organic causes for the presence of delusions. Although organic cause was questioned during initial admission, it appears less likely to be the case but of course cannot be entirely ruled out without patient's willingness to participate in these studies. History obtained from patient and suggest a long history of OCD characteristics and paranoia that appear to have developed into delusional and persecutory thinking. - Pt remains resistant to participating in appropriate safety and discharge planning and continues to refuse to involve in these steps. - Awaiting decision from [facility] regarding his referral, it continues to be the opinion of our treatment team that patient is an appropriate candidate for long-term hospitalization 12/17 - Continue current treatment plan. Pt escorted outside by staff today. - Received word that patient has been accepted to [facility]. They require that 304 reflect commitment being changed to their facility prior to being able to formally put patient on their waitlist. These changes have been requested through the [facility]. 12/18--Continue current meds and treatment plan. terfinafine as above. 12/19 - 12/20--Continue current meds and treatment plan. 12/21 - Continue current treatment plan - pt reports he is tolerating 7.5mg dose of olanzapine better - Pt formally placed on waitlist for [facility] today - updated 304 was received from the [facility] and faxed to [place] 12/22 - 12/23 - Continue current medications and treatment plan 12/24 -Patient reports that he feels that he is tolerating olanzapine 7.5 mg IM at bedtime fairly well, and notes that the adverse effect of excess somnolence that he was experiencing at higher doses has essentially resolved. The treatment team agrees that the patient has been more alert and, but he continues to refuse to attend groups. -Attempts to appeal to the patient's logic remain unsuccessful, which is quite typical of delusional disorder. However, he has not been able to neutralize data that seem to contradict his highly systematized delusional system, and when this occurs he tends to become surprisingly concrete with responses such as "well, I guess that only means I am a raving lunatic" or "look, I know what I know. These things are real, no matter what anyone says." -The patient's brother has contacted the treatment team. 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 The patient's brother reports that he, the brother, and their mother and the patient's for all researching alternatives to long-term psychiatric hospitalization in a replaced by [facility]. While we would love to see that happen, it seems unlikely given the fact that the patient is completely lacking in insight and completely unwilling to participate in any form of psychiatric treatment voluntarily. 12/25 - Continue current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
[2020-01-06] MEDS: OLANZapine 5 MG TABLET PO SCH (20:25)
[2020-01-07] MEDS: TERBINAFINE CR 30 GM TUBE EXT SCH ×2 (08:51→20:59)
[2020-01-07] MEDS: MULTIVITAMIN PO SCH (08:52)
--- NOTE | 2020-01-07 12:13 | Psychiatric Progress Note ---
Date of Service January 07, 2020 Impression / Recommendations Impression Olanzapine has been held as of 01/01/2020 as trial, and although he has maintained behavioral control, paranoia appears to be worsening. He had demonstrated some increased willingness to participate in his care, and agreed to a discharge planning meeting with his , but has since changed his mind and is unwilling to sign a release or give verbal consent, which appears to be triggered by increasing paranoia. He remains on a 304 involuntary commitment, and inpatient treatment is medically necessary due to the severity of his symptoms and risk for harm to others if discharged. He has been accepted at [facility] and we are still awaiting a bed date - possibility of "early January", with patient requiring 2 negative COVID-19 tests prior to transfer. Will need to consider reinstituting medications over objection. (1) Delusional disorder: 11/14 Patient admitted on an involuntary status to the behavioral health unit for continued assessment and treatment as indicated He will be maintained on every 15 minute safety checks We will continue to expand database Consider neuroimaging for w/u of psychosis prn orders for Ativan and Haldol today. I suspect it is likely that he will require medications over objection before he permits any treatment due to what appears to be severely impaired insight. Patient will be reevaluated tomorrow for psychiatric second opinion regarding need for treatment over objection. -presently patient requires continued inpatient hospitalization for workup and treatment of psychosis which was been recently associated with some violent behavior at home. he is at risk of harm to self and others if discharged prematurely. 11/15 -File for 303 involuntary commitment. -Patient is refusing to consider medication, but has haloperidol and Ativan as needed ordered. Would recommend a trial of olanzapine, and agree with medications over objection as he has severe psychotic symptoms which are impairing his ability to function and placing both himself and others at risk of harm due to his violent behavior at home. -Patient is refused to answer questions about whether or not he has guns, so we will need to get this information from his . At this point he is refusing to sign a release for her or anyone else. -Excuse patient from groups due to the severity of his psychosis and violent behavior. Medically necessary private room room due to the same. 11/16 -303 involuntary commitment granted. -Patient continues to refuse to allow his to be involved in treatment. He is now not denying that he was aggressive at home, but is refusing to discuss it, and is focused only on the conspiracy which he says led to his behavior. -Continue to consider medications over objection. At this point, we are atte mpting to engage the patient in treatment volitionally, and the risk of forcing medications at this time is further alienating him. However, if he is unable to engage in any manner, we will need to reconsider medications over objection. -Patient may attend groups if able to maintain appropriate behavioral control. -Patient has still not been willing to complete admission assessments, and has not been willing to provide certain information. 11/17 -Recommend medications over objection, as the patient is unable to engage in treatment due to the severity of his psychosis and lack of insight, and remains at imminent risk of harm to others, specifically his , if his symptoms remain untreated. He is floridly delusional, now implicating hospital staff in his delusions. He is not able to work as a result of his psychosis, and his is not able to work due to having to supervise him, and is fearful of him given his escalating violence at home. He continues to refuse to allow her to be involved in treatment, is not attending groups, and is refusing to even discuss medication options. Dr. Duarte recommended medications over objection, and I agree, as the patient is unlikely to improve without antipsychotic medication. -Start olanzapine Zydis 5 mg daily, with a 5 mg IM backup for refusal. Order FLP and FG tomorrow for baseline on an atypical antipsychotic. He will also need a medical work-up of psychosis once he is more cooperative, including brain MRI. -Ongoing poor sleep, staff will limit bright lights near his room at night, and if he can be compliant with medication, can move olanzapine to bedtime to assist with sleep. Giving during the day initially to allow for adequate staff in case of need for physical hold or restraint to receive medication. 11/18 - Continue olanzapine 5mg daily (offering PO Zydis with IM for refusal) - medications over objection, though patient has been cooperative with his preference for IM administration - Pt offered again PO olanzapine, with the eventual option of converting the medication to HS dosing if he continues to be cooperative - as he reports sedation after receiving the medication - Pt remains delusional and paranoid, unable to discuss examples of how we can assist him during his stay - Maintain MNPR due to level of psychosis - Fasting glucose - wnl at 90; triglycerides elevated at 188, remainder of lipid panel wnl - Continue attempts to coordinate care with patient's / -Patient is continuing to say that he does not wish for us to speak with his , and he again tells us that he will not sign a consent that will allow us to contact her. As above, his assertion is that he does not want us talking to her because she may tell us things that we will include in the record and that will eventually be used against him, either by the government or by [facility]. As a compromise, the patient says that he will ask his to call us and tell us whether she continues to feel that he is a danger to her, himself, or to anyone else. It was explained that we would also need to be able to talk to her about our concerns and we would need to coordinate aftercare arrangements with her. The patient replied to that by saying simply that he would not allow us to say anything about his care or recommended treatment to her at this time. -There seem to be some early indications that the patient may be responding to olanzapine. Today, when I told him that our concerns about his safety had not to do with his behaviors here in the hospital but, instead, about his behaviors at home (in the community) he quickly responded, "yes, but I am getting medication here!" (He almost immediately realized the implication of what he had just said, and he immediately changed the subject and began talking about how various entities were deliberately provoking him into losing his temper and acting in anger. -The patient tells us that he is using the fact that he has been given intramuscular medications against his will as evidence of our being the "dupes" or agents of the entities behind the conspiracy to silence him. He also reiterates that he believes that taking medication voluntarily is tantamount to acknowledging his need for psychiatric treatment, and he tells us that he has absolutely no psychiatric problem at all and does not need any treatment. -Today, we are increasing his olanzapine's as follows. We will begin olanzapine ODT 10 mg at bedtime starting tonight. We have also changed his order for medications over objection to olanzapine 10 mg IM daily for refusal of p.o. olanzapine. -Although the patient's presentation has many of the symptoms of a delusional disorder, persecutory typegiven the elaborate nature of the delusional system, we continue to suspect that what we are seeing is a somewhat atypical jorge, or discrete manic episodes overlaying a underlying delusional disorder. If the explanation for the patient's presentation is symptoms of a manic episode, his prognosis is better. We discussed the possibility of adding an antiobsessional medication which sometimes helps with pure delusional disorders, but the patient says that, absolutely, he will not take any medication that we offer him voluntarily. 11/22--continue Zyprexa IM hs, continues to refuse family meeting with due to paranoia, refuses 2-3 trial of PO Invega to convert to injectable. 11/23--File for 304 hearing d/t ongoing psychosis, lack of insight, refusal for outpatient treatment or ongoing medication, refusal to involve , and high risk for return to violent behavior if home w/ , whom he believes is part of the conspiracy against him. 11/24 - Continue olanzapine IM, continuing to offer patient PO medication which he is consistently refusing - Pt continues to refuse to involve in conversations regarding discharge and safety planning - 304 hearing scheduled for 11/30; pt continues to be psychotic and remains unable to engage in productive safety and discharge planing, therefore remains at high risk of harm to sefl or others if he is discharged home in his current state 11/25 - Titrating olanzapine to 10mg daily; patient continues to refuse offer for PO and is therefore continuing to receive IM injections each evening - 304 hearing 11/30; pt continues to be unwilling to participate in safety and discharge planning efforts 11/26 -The patient tells me that he received olanzapine 10 mg last evening and says that he feels that it has helped him sleep better. However, he notes that his sleep difficulty is related to the fact that his sleep schedule in the hospital is substantially different from the one that he is used to at home, with bedtime here at the hospital being 3 or 4 hours earlier than he is used to. Nevertheless, he says that he believes that he is not having any side effects from olanzapine and that, in the sense that it does help him fall asleep, it helps. Nevertheless, he also repeats today that he will not continue to take any medication, including olanzapine, if he is discharged. -I spoke with the patient's today, without disclosing any protected clinical data regarding the patient. She acknowledges that he frightens her, and, particularly recently, has caused her to fear for her personal physical safety. At the same time, she says tells me that she thinks that if she gets some advice about how best to "handle somebody who is delusional" possibly by getting into individual therapy, herself, she may be able to take him home. She also reports that should he be released (she is aware of upcoming hearing) that she will agree to take him home, because she loves him and wants to protect him, but continues to fear that he may again lose control of his behavior as a function of his delusions. -Today, the patient tells me that he recognizes that in his upcoming hearing on 11/30 (304) the issue may boil down to whether he can assure that he will be safe in the community and will not represent a risk to anyone else, even if he does not take medication. He also says that he recognizes the "Catch-22" that he is in because he realizes that the hospital is likely to say that his behavior in the hospital has been positively influenced by his taking olanzapine, and that without the structure of the hospital and without the medications, he may revert to the dangerous behaviors that precipitated the admission. -Of concern is the fact that the patient's tells us today that, effective yesterday, he has told her that he will no longer speak to her telephonically, and if he is released from the hospital on Saturday he will simply walk home, and if she is not comfortable being home with him she should leave. However, by the end of today he is allowing that he truly believes that his loves him and would not try to harm him if she had any choice, so he is at least considering contacting her again by telephone. 11/27 -Patient informed of 304 hearing and plan to refer to the [facility], as well as additional labs needed for that referral. -He continues to refuse a family meeting with his , who has expressed ongoing concern for her safety. He continues to refuse p.o. medication, outpatient treatment, and discussion of his aggression at home or plans to mitigate it. He remains at risk of harm to others, particularly his , and if discharged prematurely, as she is implicated in his delusion and he believes she has part of the conspiracy against him. -Encourage the patient to attend groups and focus on his own emotional reaction to his perception of events, healthy coping skills, and a discharge safety plan; all of which thus far he has been unwilling to do. 11/28 - 11/29 -Patient refused PPD, EKG, and chest x-ray for [facility] hospital referral. He is refusing to consider a trial of Invega/MERCADO, and continues to refuse a family meeting. -304 involuntary commitment hearing scheduled for 12/01/2019, and will then pursue referral to the [facility]. 11/30 - 304 involuntary commitment granted today, referral to the [facility] is reportedly supported by the [facility] at this time - Pt was again offered PPD, EKG and CXR for [facility] referral, which he again declined - Although he is not overtly refusing medication changes, he does verbalize desire to give olanzapine "another week" before switching to another agent. 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 He remains delusional and without insight, refusing medication (although getting the IM of Zyprexa daily), a family meeting, or discharge planning/outpatient care. -Recommend referral to [facility] for long-term inpatient treatment, will simultaneously referring for a BCM and working on potential diversion plans. 12/02 - Continue IM olanzapine - as continues to refuse oral medications or discussion regarding alternative agents - Most documentation sent to [facility] for referral - awaiting 303 and 304 findings to be sent and will then fax these as well - Pt continues to decline medical tests generally requested as part of [facility] referral, but cannot force these studies to be done 12/03 -We will increase his dose of IM olanzapine to 12.5 mg at bedtime. The medication thus far does not seem to have had much of a favorable impact on the patient's delusional belief system, and he is not willing to consider antiobsessional medications in the form of a selective serotonin reuptake inhibitor. However, the patient is now sleeping better and his general demeanor has been more calm, more pleasant, and more self-possessed. -The patient reports that he does not feel that he is experiencing any side effects from olanzapine, but fall short of saying that it is helping him in any way, other than perhaps for sleep. He mentions that he sometimes has a pain in his left abdominal wall and lower rib cage that he says he does not feel as a side effect from medication but, rather, the result of his doing sit ups and his bedroom by placing his feet under the mattress and exercising in that way. 12/04 - 12/05 -Zyprexa 12.5 mg IM po qhs, sedation from yesterday seems to be resolving, can likely be increased tomorrow. 12/06 - Continue Zyprexa 12.5mg IM this evening - continue attempts to engage patient in conversation regarding dose increases or consideration of alternative agents - Pt continues to be unwilling to participate in conversation regarding alternative discharge plans to [facility]. He continues to refuse to involve his or any other outpatient support in safety/discharge planning. - Referral to [facility] was completed and is reportedly being reviewed. 12/07 - Titrating Zyprexa 15mg IM - patient continues to refuse offer for oral medications. Pt was offered discussion about alternative agents, but declined. - Referral officially received by [facility] on 12/02/2019 (304 findings to be sent once received) - awaiting response regarding acceptance decision - Continue attempts to engage patient in discharge and safety planning - patient continues to be unwilling to discuss possible diversion plans 12/08 - 12/09 - Continue Zyprexa 15mg IM - pt continuing to refuse oral medications - Awaiting response from [facility] regarding referral - Pt remains unwilling to participate in safety planning or exploring diversion plan 12/10 -Patient is exhibiting excess sedation add Zyprexa 15 mg IM at bedtime. Specifically, the patient is observed to be hypersomnolent, has been sleeping off and on throughout the days, and indicates that he feels that at this higher dose of Zyprexa he is experiencing some cognitive slowing. At the same time, he does not seem to be responding to Zyprexa either at high doses or at low doses, other than it may be contributing to his ability to maintain self possession and avoid these sorts of dyscontroled behaviors that precipitated the current admission (for example, breaking furniture, knocking holes in the [place] of his home, and tearing out shards of woodwork and ways that frightened his ). -The patient remains delusional and harbors an elaborate persecutory delusional system that he often hits that, but is reluctant to discuss in detail much of the time because he says that he fears that information that he shares with us will fall into the wrong hands and will interfere with his ability to expose those persons who he feels are responsible for the referenced "crimes against humanity." -The patient when asked, convincingly states that he is not having any thoughts of extracting retribution from the individuals and entities that he holds responsible for his delusional construct regarding "crimes against humanity," other than to expose them by publishing proof of their crimes. Specifically, he says that he has no plan to cause physical harm to the person or property of others and says that he will leave the question of punishment to those who are lawful he entitled to impose it. -Because the patient's delusional belief seem not to be responding favorably to olanzapine at the higher dose, and because he is exhibiting some symptoms of excess sedation associated with olanzapine at 15 mg daily, his dose of olanzapine (to be given IM if necessary for refusal of p.o. olanzapine) will be reduced to olanzapine 10 mg IM at bedtime, starting tonight. 12/11 The patient is less sedated at the 10 mg of olanzapine IM he continues to refuse oral medications. Provider did again re-present the role of an SSRI that may help but he is clear and adamant about refusal of all medications. 12/12 - he is slightly less sedated at 10mg olanzapine IM each hs, but is more agitated today that he had been and more profuse with this provider about his delusional beliefs and seeing this provider and all medical care here as passive pawns of a broader conspiracy through the [employer]. He continues to decline oral medications, or any form of aftercare for monitoring of irritability and agitation maintaining that he does not have any mental illness and that all he has is "truth." Presently his risk of continuing to incorporate anyone who disagrees with his delusion into the delusion, his unwillingness to take medications after discharge, and unwillingness to participate any form of routine relationship with a behavioral health provider after discharge, and incorporation of his in his delusional system with prior physical aggression are concerning. I believe ongoing inpatient hospitalization is most appropriate setting for care at this time 12/13 - Continue olanzapine 10mg IM each evening (patient continues to refuse PO medications or discussion regarding alternative agents. - Pt continues to appear sedated, though is spending more time out of his room in the afternoons. - Anticipate decision regarding [facility] referral in the next few days 12/14 - Continue current treatment plan, patient reporting improvement in fatigue today - Anticipate update from [facility] soon regarding decision on referral - Pt continues to be resistant to attempts to safety plan or discuss alternative discharge options 12/15 - Continue current treatment plan - patient reports he is better tolerating lower dose of olanzapine but still reports daytime fatigue - Explanation provided to patient regarding request for MRI, heavy metal studies, B12, and folate - patient is persistent in his unwillingness to have these studies completed at this time - Will attempt to gather more information regarding reports of a previous MRI - Could consider cognitive assessment such as MoCA - as patient was limited in his willingness to even discuss superficial details with this provider, cognitive assessment was not attempted today - Pt went outside with staff this afternoon - continue to offer intermittently and assess the appropriateness of his presentation 12/16 - Continue current treatment plan - olanzapine 10mg qHS. Pt continues to refuse PO medications but tolerates IM injections without incident - Pt again unwilling to consider studies to rule out organic causes for the presence of delusions. Although organic cause was questioned during initial admission, it appears less likely to be the case but of course cannot be entirely ruled out without patient's willingness to participate in these studies. History obtained from patient and suggest a long history of OCD characteristics and paranoia that appear to have developed into delusional and persecutory thinking. - Pt remains resistant to participating in appropriate safety and discharge planning and continues to refuse to involve in these steps. - Awaiting decision from [facility] regarding his referral, it continues to be the opinion of our treatment team that patient is an appropriate candidate for long-term hospitalization 12/17 - Continue current treatment plan. Pt escorted outside by staff today. - Received word that patient has been accepted to [facility]. They require that 304 reflect commitment being changed to their facility prior to being able to formally put patient on their waitlist. These changes have been requested through the [facility]. 12/18--Continue current meds and treatment plan. terfinafine as above. 12/19 - 12/20--Continue current meds and treatment plan. 12/21 - Continue current treatment plan - pt reports he is tolerating 7.5mg dose of olanzapine better - Pt formally placed on waitlist for [facility] today - updated 304 was received from the [facility] and faxed to [place] 12/22 - 12/23 - Continue current medications and treatment plan 12/24 -Patient reports that he feels that he is tolerating olanzapine 7.5 mg IM at bedtime fairly well, and notes that the adverse effect of excess somnolence that he was experiencing at higher doses has essentially resolved. The treatment team agrees that the patient has been more alert and, but he continues to refuse to attend groups. -Attempts to appeal to the patient's logic remain unsuccessful, which is quite typical of delusional disorder. However, he has not been able to neutralize data that seem to contradict his highly systematized delusional system, and when this occurs he tends to become surprisingly concrete with responses such as "well, I guess that only means I am a raving lunatic" or "look, I know what I know. These things are real, no matter what anyone says." -The patient's brother has contacted the treatment team. 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 The patient's brother reports that he, the brother, and their mother and the patient's for all researching alternatives to long-term psychiatric hospitalization in a [facility]. While we would love to see that happen, it seems unlikely given the fact that the patient is completely lacking in insight and completely unwilling to participate in any form of psychiatric treatment voluntarily. 12/25 - Continue current medications and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
[2020-01-07] MEDS: OLANZapine 5 MG TABLET PO SCH (20:59)
[2020-01-08] MEDS: MULTIVITAMIN PO SCH (08:49)
[2020-01-08] MEDS: TERBINAFINE CR 30 GM TUBE EXT SCH ×2 (11:02→20:41)
--- NOTE | 2020-01-08 16:20 | Psychiatric Progress Note ---
Date of Service January 08, 2020 Impression / Recommendations Impression Olanzapine has been held as of 01/01/2020 as trial, and and he has now maintained behavioral control for a week (as of 01/08/2020). There have been some concern during the past several days that the patient's paranoia was worse. This, based in part on the fact that he continued to vacillate about signing a release of information to allow us to do diversion aftercare planning with his . However, feedback provided by both his and his brother today was that both feel that the patient continues to do quite well, and his brother said that, in particular, the patient's condition seems to have been "much better." The patient's brother explained that he, the patient, had been concerned about a passage in the really statement that caused the patient to believe that if he signed it it would somehow waived his right to confidentiality and allow the hospital to expose clinical data to others without protection. On 01/08/2020 the patient spontaneously said that he now understands the object of the passage in question, and adds "that makes perfect sense." He then spontaneously agreed to sign the release. He also confirmed with Dr. Chirstopher that he realizes that he may need ongoing treatment in [place], although he continues to feel that he does not want psychiatric medications. Further, he said that he would like to continue in outpatient treatment with either Dr. Garcia or Dr. Christopher until he and his leave the area for their new home in [place], if that diversion plan can be accomplished. Today, the patient, his , several staff members, and Dr. Christopher met with the patient's on the behavioral health unit after receiving special permission for her to join us as part of our aftercare planning and state hospital diversion efforts. The couple is demonstratively affectionate and held hands throughout the encounter. The patient acknowledged his personal responsibility for losing control of his behavior prior to the admission, and with a smile discussed to believe him when he says that he never again plans to engage in any of the problematic behaviors that precipitated the admission because he can "see what can happen" in terms of ending up confined to a psychiatric hospital. Certainly, the patient does not have full insight, and, ideally, he would agree to take oral psychiatric medication that might help reduce the intensity of the patient's delusional believes. However, he clearly respects his brother and the plan that the family has developed to structure the patient's time in [place] with activities that he enjoys, together with the brothers network of friends and exercise partners seems to be a fully reasonable and appropriate aftercare plan at this point consistent with the patient's clinical needs. I do not find reasonable evidence to indicate that intramuscular injections of an antipsychotic such as olanzapine have been helpful to this patient, and we need to recognize that there is literature that shows that the likelihood of adherence in the community with medications that have been given over objection and a hospital is significantly diminished. (1) Delusional disorder: 11/14 Patient admitted on an involuntary status to the behavioral health unit for continued assessment and treatment as indicated He will be maintained on every 15 minute safety checks We will continue to expand database Consider neuroimaging for w/u of psychosis prn orders for Ativan and Haldol today. I suspect it is likely that he will require medications over objection before he permits any treatment due to what appears to be severely impaired insight. Patient will be reevaluated tomorrow for psychiatric second opinion regarding need for treatment over objection. -presently patient requires continued inpatient hospitalization for workup and treatment of psychosis which was been recently associated with some violent behavior at home. he is at risk of harm to self and others if discharged shell aturely. 11/15 -File for 303 involuntary commitment. -Patient is refusing to consider medication, but has haloperidol and Ativan as needed ordered. Would recommend a trial of olanzapine, and agree with medications over objection as he has severe psychotic symptoms which are impairing his ability to function and placing both himself and others at risk of harm due to his violent behavior at home. -Patient is refused to answer questions about whether or not he has guns, so we will need to get this information from his . At this point he is refusing to sign a release for her or anyone else. -Excuse patient from groups due to the severity of his psychosis and violent behavior. Medically necessary private room room due to the same. 11/16 -303 involuntary commitment granted. -Patient continues to refuse to allow his to be involved in treatment. He is now not denying that he was aggressive at home, but is refusing to discuss it, and is focused only on the conspiracy which he says led to his behavior. -Continue to consider medications over objection. At this point, we are attempting to engage the patient in treatment volitionally, and the risk of forcing medications at this time is further alienating him. However, if he is unable to engage in any manner, we will need to reconsider medications over objection. -Patient may attend groups if able to maintain appropriate behavioral control. -Patient has still not been willing to complete admission assessments, and has not been willing to provide certain information. 11/17 -Recommend medications over objection, as the patient is unable to engage in treatment due to the severity of his psychosis and lack of insight, and remains at imminent risk of harm to others, specifically his , if his symptoms remain untreated. He is floridly delusional, now implicating hospital staff in his delusions. He is not able to work as a result of his psychosis, and his is not able to work due to having to supervise him, and is fearful of him given his escalating violence at home. He continues to refuse to allow her to be involved in treatment, is not attending groups, and is refusing to even discuss medication options. Dr. Duarte recommended medications over objection, and I agree, as the patient is unlikely to improve without antipsychotic medication. -Start olanzapine Zydis 5 mg daily, with a 5 mg IM backup for refusal. Order FLP and FG tomorrow for baseline on an atypical antipsychotic. He will also need a medical work-up of psychosis once he is more cooperative, including brain MRI. -Ongoing poor sleep, staff will limit bright lights near his room at night, and if he can be compliant with medication, can move olanzapine to bedtime to assist with sleep. Giving during the day initially to allow for adequate staff in case of need for physical hold or restraint to receive medication. 11/18 - Continue olanzapine 5mg daily (offering PO Zydis with IM for refusal) - medications over objection, though patient has been cooperative with his preference for IM administration - Pt offered again PO olanzapine, with the eventual option of converting the medication to HS dosing if he continues to be cooperative - as he reports sedation after receiving the medication - Pt remains delusional and paranoid, unable to discuss examples of how we can assist him during his stay - Maintain MNPR due to level of psychosis - Fasting glucose - wnl at 90; triglycerides elevated at 188, remainder of lipid panel wnl - Continue attempts to coordinate care with patient's 11/19 -Patient is continuing to say that he does not wish for us to speak with his , and he again tells us that he will not sign a consent that will allow us to contact her. As above, his assertion is that he does not want us talking to her because she may tell us things that we will include in the record and that will eventually be used against him, either by the government or by [facility]. As a compromise, the patient says that he will ask his to call us and tell us whether she continues to feel that he is a danger to her, himself, or to anyone else. It was explained that we would also need to be able to talk to her about our concerns and we would need to coordinate aftercare arrangements with her. The patient replied to that by saying simply that he would not allow us to say anything about his care or recommended treatment to her at this time. -There seem to be some early indications that the patient may be responding to olanzapine. Today, when I told him that our concerns about his safety had not to do with his behaviors here in the hospital but, instead, about his behaviors at home (in the community) he quickly responded, "yes, but I am getting medication here!" (He almost immediately realized the implication of what he had just said, and he immediately changed the subject and began talking about how various entities were deliberately provoking him into losing his temper and acting in anger. -The patient tells us that he is using the fact that he has been given intramuscular medications against his will as evidence of our being the "dupes" or agents of the entities behind the conspiracy to silence him. He also reiterates that he believes that taking medication voluntarily is tantamount to acknowledging his need for psychiatric treatment, and he tells us that he has absolutely no psychiatric problem at all and does not need any treatment. -Today, we are increasing his olanzapine's as follows. We will begin olanz apine ODT 10 mg at bedtime starting tonight. We have also changed his order for medications over objection to olanzapine 10 mg IM daily for refusal of p.o. olanzapine. -Although the patient's presentation has many of the symptoms of a delusional disorder, persecutory typegiven the elaborate nature of the delusional system, we continue to suspect that what we are seeing is a somewhat atypical jorge, or discrete manic episodes overlaying a underlying delusional disorder. If the explanation for the patient's presentation is symptoms of a manic episode, his prognosis is better. We discussed the possibility of adding an antiobsessional medication which sometimes helps with pure delusional disorders, but the patient says that, absolutely, he will not take any medication that we offer him v oluntarily. 11/22--continue Zyprexa IM hs, continues to refuse family meeting with due to paranoia, refuses 2-3 trial of PO Invega to convert to injectable. 11/23--File for 304 hearing d/t ongoing psychosis, lack of insight, refusal for outpatient treatment or ongoing medication, refusal to involve , and high risk for return to violent behavior if home w/ , whom he believes is part of the conspiracy against him. 11/24 - Continue olanzapine IM, continuing to offer patient PO medication which he is consistently refusing - Pt continues to refuse to involve in conversations regarding discharge and safety planning - 304 hearing scheduled for 11/30; pt continues to be psychotic and remains unable to engage in productive safety and discharge planing, therefore remains at high risk of harm to sefl or others if he is discharged home in his current state 11/25 - Titrating olanzapine to 10mg daily; patient continues to refuse offer for PO and is therefore continuing to receive IM injections each evening - 304 hearing 11/30; pt continues to be unwilling to participate in safety and discharge planning efforts 11/26 -The patient tells me that he received olanzapine 10 mg last evening and says that he feels that it has helped him sleep better. However, he notes that his sleep difficulty is related to the fact that his sleep schedule in the hospital is substantially different from the one that he is used to at home, with bedtime here at the hospital being 3 or 4 hours earlier than he is used to. Nevertheless, he says that he believes that he is not having any side effects from olanzapine and that, in the sense that it does help him fall asleep, it helps. Nevertheless, he also repeats today that he will not continue to take any medication, including olanzapine, if he is discharged. -I spoke with the patient's today, without disclosing any protected clinical data regarding the patient. She acknowledges that he frightens her, and, particularly recently, has caused her to fear for her personal physical safety. At the same time, she says tells me that she thinks that if she gets some advice about how best to "handle somebody who is delusional" possibly by getting into individual therapy, herself, she may be able to take him home. She also reports that should he be released (she is aware of upcoming hearing) that she will agree to take him home, because she loves him and wants to protect him, but continues to fear that he may again lose control of his behavior as a function of his delusions. -Today, the patient tells me that he recognizes that in his upcoming hearing on 11/30 (304) the issue may boil down to whether he can assure that he will be safe in the community and will not represent a risk to anyone else, even if he does not take medication. He also says that he recognizes the "Catch-22" that he is in because he realizes that the hospital is likely to say that his behavior in the hospital has been positively influenced by his taking olanzapine, and that without the structure of the hospital and without the medications, he may revert to the dangerous behaviors that precipitated the admission. -Of concern is the fact that the patient's tells us today that, effective yesterday, he has told her that he will no longer speak to her telephonically, and if he is released from the hospital on Saturday he will simply walk home, and if she is not comfortable being home with him she should leave. However, by the end of today he is allowing that he truly believes that his loves him and would not try to harm him if she had any choice, so he is at least considering contacting her again by telephone. 11/27 -Patient informed of 304 hearing and plan to refer to the [facility], as well as additional labs needed for that referral. -He continues to refuse a family meeting with his , who has expressed ongoing concern for her safety. He continues to refuse p.o. medication, outpatient treatment, and discussion of his aggression at home or plans to mitigate it. He remains at risk of harm to others, particularly his , and if discharged prematurely, as she is implicated in his delusion and he believes she has part of the conspiracy against him. -Encourage the patient to attend groups and focus on his own emotional reaction to his perception of events, healthy coping skills, and a discharge safety plan; all of which thus far he has been unwilling to do. 11/28 - 11/29 -Patient refused PPD, EKG, and chest x-ray for [facility] hospital referral. He is refusing to consider a trial of Invega/MERCADO, and continues to refuse a family meeting. -304 involuntary commitment hearing scheduled for 12/01/2019, and will then pursue referral to the [facility]. 11/30 - 304 involuntary commitment granted today, referral to the [facility] is reportedly supported by the [facility] at this time - Pt was again offered PPD, EKG and CXR for [facility] referral, which he again declined - Although he is not overtly refusing medication changes, he does verbalize desire to give olanzapine "another week" before switching to another agent. 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 He remains delusional and without insight, refusing medication (although getting the IM of Zyprexa daily), a family meeting, or discharge planning/outpatient care. -Recommend referral to [facility] for long-term inpatient treatment, will simultaneously referring for a BCM and working on potential diversion plans. 12/02 - Continue IM olanzapine - as continues to refuse oral medications or discussion regarding alternative agents - Most documentation sent to [facility] for referral - awaiting 303 and 304 findings to be sent and will then fax these as well - Pt continues to decline medical tests generally requested as part of [facility] referral, but cannot force these studies to be done 12/03 -We will increase his dose of IM olanzapine to 12.5 mg at bedtime. The medication thus far does not seem to have had much of a favorable impact on the patient's delusional belief system, and he is not willing to consider antiobsessional medications in the form of a selective serotonin reuptake inhibitor. However, the patient is now sleeping better and his general demeanor has been more calm, more pleasant, and more self-possessed. -The patient reports that he does not feel that he is experiencing any side effects from olanzapine, but fall short of saying that it is helping him in any way, other than perhaps for sleep. He mentions that he sometimes has a pain in his left abdominal wall and lower rib cage that he says he does not feel as a side effect from medication but, rather, the result of his doing sit ups and his bedroom by placing his feet under the mattress and exercising in that way. 12/04 - 12/05 -Zyprexa 12.5 mg IM po qhs, sedation from yesterday seems to be resolving, can likely be increased tomorrow. 12/06 - Continue Zyprexa 12.5mg IM this evening - continue attempts to engage patient in conversation regarding dose increases or consideration of alternative agents - Pt continues to be unwilling to participate in conversation regarding alternative discharge plans to state hospitalization. He continues to refuse to involve his or any other outpatient support in safety/discharge planning. - Referral to [facility] was completed and is reportedly being reviewed. 12/07 - Titrating Zyprexa 15mg IM - patient continues to refuse offer for oral medications. Pt was offered discussion about alternative agents, but declined. - Referral officially received by [facility] on 12/02/2019 (304 findings to be sent once received) - awaiting response regarding acceptance decision - Continue attempts to engage patient in discharge and safety planning - patient continues to be unwilling to discuss possible diversion plans 12/08 - 12/09 - Continue Zyprexa 15mg IM - pt continuing to refuse oral medications - Awaiting response from [facility] regarding referral - Pt remains unwilling to participate in safety planning or exploring diversion plan 12/10 -Patient is exhibiting excess sedation add Zyprexa 15 mg IM at bedtime. Specifically, the patient is observed to be hypersomnolent, has been sleeping off and on throughout the days, and indicates that he feels that at this higher dose of Zyprexa he is experiencing some cognitive slowing. At the same time, he does not seem to be responding to Zyprexa either at high doses or at low doses, other than it may be contributing to his ability to maintain self possession and avoid these sorts of dyscontroled behaviors that precipitated the current admission (for example, breaking furniture, knocking holes in the [place] of his home, and tearing out shards of woodwork and ways that frightened his ). -The patient remains delusional and harbors an elaborate persecutory delusional system that he often hits that, but is reluctant to discuss in detail much of the time because he says that he fears that information that he shares with us will fall into the wrong hands and will interfere with his ability to expose those persons who he feels are responsible for the referenced "crimes against humanity." -The patient when asked, convincingly states that he is not having any thoughts of extracting retribution from the individuals and entities that he holds responsible for his delusional construct regarding "crimes against humanity," other than to expose them by publishing proof of their crimes. Specifically, he says that he has no plan to cause physical harm to the person or property of others and says that he will leave the question of punishment to those who are lawful he entitled to impose it. -Because the patient's delusional belief seem not to be responding favorably to olanzapine at the higher dose, and because he is exhibiting some symptoms of excess sedation associated with olanzapine at 15 mg daily, his dose of olanzapine (to be given IM if necessary for refusal of p.o. olanzapine) will be reduced to olanzapine 10 mg IM at bedtime, starting tonight. 12/11 The patient is less sedated at the 10 mg of olanzapine IM he continues to refuse oral medications. Provider did again re-present the role of an SSRI that may help but he is clear and adamant about refusal of all medications. 12/12 - he is slightly less sedated at 10mg olanzapine IM each hs, but is more agitated today that he had been and more profuse with this provider about his delusional beliefs and seeing this provider and all medical care here as passive pawns of a broader conspiracy through the [employer]. He continues to decline oral medications, or any form of aftercare for monitoring of irritability and agitation maintaining that he does not have any mental illness and that all he has is "truth." Presently his risk of continuing to incorporate anyone who disagrees with his delusion into the delusion, his unw illingness to take medications after discharge, and unwillingness to participate any form of routine relationship with a behavioral health provider after discharge, and incorporation of his in his delusional system with prior physical aggression are concerning. I believe ongoing inpatient hospitalization is most appropriate setting for care at this time 12/13 - Continue olanzapine 10mg IM each evening (patient continues to refuse PO medications or discussion regarding alternative agents. - Pt continues to appear sedated, though is spending more time out of his room in the afternoons. - Anticipate decision regarding [facility] referral in the next few days 12/14 - Continue current treatment plan, patient reporting improvement in fatigue today - Anticipate update from [facility] soon regarding decision on referral - Pt continues to be resistant to attempts to safety plan or discuss alternative discharge options 12/15 - Continue current treatment plan - patient reports he is better tolerating lower dose of olanzapine but still reports daytime fatigue - Explanation provided to patient regarding request for MRI, heavy metal studies, B12, and folate - patient is persistent in his unwillingness to have these studies completed at this time - Will attempt to gather more information regarding reports of a previous MRI - Could consider cognitive assessment such as MoCA - as patient was limited in his willingness to even discuss superficial details with this provider, cognitive assessment was not attempted today - Pt went outside with staff this afternoon - continue to offer intermittently and assess the appropriateness of his presentation 12/16 - Continue current treatment plan - olanzapine 10mg qHS. Pt continues to refuse PO medications but tolerates IM injections without incident - Pt again unwilling to consider studies to rule out organic causes for the presence of delusions. Although organic cause was questioned during initial admission, it appears less likely to be the case but of course cannot be entirely ruled out without patient's willingness to participate in these studies. History obtained from patient and suggest a long history of OCD characteristics and paranoia that appear to have developed into delusional and persecutory thinking. - Pt remains resistant to participating in appropriate safety and discharge planning and continues to refuse to involve in these steps. - Awaiting decision from [facility] regarding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
[2020-01-08] MEDS: OLANZapine 5 MG TABLET PO SCH (20:43)
[2020-01-09] MEDS: MULTIVITAMIN PO SCH (09:25)
[2020-01-09] MEDS: TERBINAFINE CR 30 GM TUBE EXT SCH (09:25)
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
[2020-01-09] MEDS ORDERED: TERBINAFINE CR 30 GM TUBE EXT PRN (11:27)
[2020-01-09] MEDS: OLANZapine 5 MG TABLET PO SCH (22:42)
[2020-01-10] MEDS: MULTIVITAMIN PO SCH (09:00)
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
[2020-01-10] MEDS: OLANZapine 5 MG TABLET PO SCH (21:29)
[2020-01-11] MEDS: MULTIVITAMIN PO SCH (08:33)
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
[2020-01-11] MEDS: OLANZapine 5 MG TABLET PO SCH (21:11)
[2020-01-12] MEDS: MULTIVITAMIN PO SCH (08:41)
--- NOTE | 2020-01-12 11:37 | Psychiatric Progress Note ---
Date of Service January 12, 2020 Impression / Recommendations Impression Delusions and paranoia are improving, he is much less focused on them, and instead focusing on rebuilding his relationship with his , and their plans for the future. As his and brother are supportive and all are in agreement on a discharge plan with he and his moving to [place] in the next month or so where they will have additional family support, we will proceed with diversion planning and anticipate discharge as early as tomorrow. He is agreeing to follow-up with Dr. Christopher at [facility] while he remains in [facility]. (1) Delusional disorder: 11/14 Patient admitted on an involuntary status to the behavioral health unit for continued assessment and treatment as indicated He will be maintained on every 15 minute safety checks We will continue to expand database Consider neuroimaging for w/u of psychosis prn orders for Ativan and Haldol today. I suspect it is likely that he will require medications over objection before he permits any treatment due to what appears to be severely impaired insight. Patient will be reevaluated tomorrow for psychiatric second opinion regarding need for treatment over objection. -presently patient requires continued inpatient hospitalization for workup and treatment of psychosis which was been recently associated with some violent behavior at home. he is at risk of harm to self and others if discharged prematurely. 11/15 -File for 303 involuntary commitment. -Patient is refusing to consider medication, but has haloperidol and Ativan as needed ordered. Would recommend a trial of olanzapine, and agree with medications over objection as he has severe psychotic symptoms which are impairing his ability to function and placing both himself and others at risk of harm due to his violent behavior at home. -Patient is refused to answer questions about whether or not he has guns, so we will need to get this information from his . At this point he is refusing to sign a release for her or anyone else. -Excuse patient from groups due to the severity of his psychosis and violent behavior. Medically necessary private room room due to the same. 11/16 -303 involuntary commitment granted. -Patient continues to refuse to allow his to be involved in treatment. He is now not denying that he was aggressive at home, but is refusing to discuss it, and is focused only on the conspiracy which he says led to his behavior. -Continue to consider medications over objection. At this point, we are attempting to engage the patient in treatment volitionally, and the risk of forcing medications at this time is further alienating him. However, if he is unable to engage in any manner, we will need to reconsider medications over objection. -Patient may attend groups if able to maintain appropriate behavioral control. -Patient has still not been willing to complete admission assessments, and has not been willing to provide certain information. 11/17 -Recommend medications over objection, as the patient is unable to engage in treatment due to the severity of his psychosis and lack of insight, and remains at imminent risk of harm to others, specifically his , if his symptoms remain untreated. He is floridly delusional, now implicating hospital staff in his delusions. He is not able to work as a result of his psychosis, and his wif prashanth is not able to work due to having to supervise him, and is fearful of him given his escalating violence at home. He continues to refuse to allow her to be involved in treatment, is not attending groups, and is refusing to even discuss medication options. Dr. Duarte recommended medications over objection, and I agree, as the patient is unlikely to improve without antipsychotic medication. -Start olanzapine Zydis 5 mg daily, with a 5 mg IM backup for refusal. Order FLP and FG tomorrow for baseline on an atypical antipsychotic. He will also need a medical work-up of psychosis once he is more cooperative, including brain MRI. -Ongoing poor sleep, staff will limit bright lights near his room at night, and if he can be compliant with medication, can move olanzapine to bedtime to assist with sleep. Giving during the day initially to allow for adequate staff in case of need for physical hold or restraint to receive medication. 11/18 - Continue olanzapine 5mg daily (offering PO Zydis with IM for refusal) - medications over objection, though patient has been cooperative with his preference for IM administration - Pt offered again PO olanzapine, with the eventual option of converting the medication to HS dosing if he continues to be cooperative - as he reports sedation after receiving the medication - Pt remains delusional and paranoid, unable to discuss examples of how we can assist him during his stay - Maintain MNPR due to level of psychosis - Fasting glucose - wnl at 90; triglycerides elevated at 188, remainder of lipid panel wnl - Continue attempts to coordinate care with patient's 11/19 -Patient is continuing to say that he does not wish for us to speak with his , and he again tells us that he will not sign a consent that will allow us to contact her. As above, his assertion is that he does not want us talking to her because she may tell us things that we will include in the record and that will eventually be used against him, either by the government or by [facility]. As a compromise, the patient says that he will ask his to call us and tell us whether she continues to feel that he is a danger to her, himself, or to anyone else. It was explained that we would also need to be able to talk to her about our concerns and we would need to coordinate aftercare arrangements with her. The patient replied to that by saying simply that he would not allow us to say anything about his care or recommended treatment to her at this time. -There seem to be some early indications that the patient may be responding to olanzapine. Today, when I told him that our concerns about his safety had not to do with his behaviors here in the hospital but, instead, about his behaviors at home (in the community) he quickly responded, "yes, but I am getting medication here!" (He almost immediately realized the implication of what he had just said, and he immediately changed the subject and began talking about how various entities were deliberately provoking him into losing his temper and acting in anger. -The patient tells us that he is using the fact that he has been given intramuscular medications against his will as evidence of our being the "dupes" or agents of the entities behind the conspiracy to silence him. He also reiterates that he believes that taking medication voluntarily is tantamount to acknowledging his need for psychiatric treatment, and he tells us that he has absolutely no psychiatric problem at all and does not need any treatment. -Today, we are increasing his olanzapine's as follows. We will begin olanzapine ODT 10 mg at bedtime starting tonight. We have also changed his order for medications over objection to olanzapine 10 mg IM daily for refusal of p.o. olanzapine. -Although the patient's presentation has many of the symptoms of a delusional disorder, persecutory typegiven the elaborate nature of the delusional system, we continue to suspect that what we are seeing is a somewhat atypical jorge, or discrete manic episodes overlaying a underlying delusional disorder. If the explanation for the patient's presentation is symptoms of a manic episode, his prognosis is better. We discussed the possibility of adding an antiobsessional medication which sometimes helps with pure delusional disorders, but the patient says that, absolutely, he will not take any medication that we offer him voluntarily. 11/22--continue Zyprexa IM hs, continues to refuse family meeting with due to paranoia, refuses 2-3 trial of PO Invega to convert to injectable. 11/23--File for 304 hearing d/t ongoing psychosis, lack of insight, refusal for outpatient treatment or ongoing medication, refusal to involve , and high risk for return to violent behavior if home w/ , whom he believes is part of the conspiracy against him. 11/24 - Continue olanzapine IM, continuing to offer patient PO medication which he is consistently refusing - Pt continues to refuse to involve in conversations regarding discharge and safety planning - 304 hearing scheduled for 11/30; pt continues to be psychotic and remains unable to engage in productive safety and discharge planing, therefore remains at high risk of harm to sefl or others if he is discharged home in his current state 11/25 - Titrating olanzapine to 10mg daily; patient continues to refuse offer for PO and is therefore continuing to receive IM injections each evening - 304 hearing 11/30; pt continues to be unwilling to participate in safety and discharge planning efforts 11/26 -The patient tells me that he received olanzapine 10 mg last evening and says that he feels that it has helped him sleep better. However, he notes that his sleep difficulty is related to the fact that his sleep schedule in the hospital is substantially different from the one that he is used to at home, with bedtime here at the hospital being 3 or 4 hours earlier than he is used to. Nevertheless, he says that he believes that he is not having any side effects from olanzapine and that, in the sense that it does help him fall asleep, it helps. Nevertheless, he also repeats today that he will not continue to take any medication, including olanzapine, if he is discharged. -I spoke with the patient's today, without disclosing any protected clinical data regarding the patient. She acknowledges that he frightens her, and, particularly recently, has caused her to fear for her personal physical safety. At the same time, she says tells me that she thinks that if she gets some advice about how best to "handle somebody who is delusional" possibly by getting into individual therapy, herself, she may be able to take him home. She also reports that should he be released (she is aware of upcoming hearing) that she will agree to take him home, because she loves him and wants to protect him, but continues to fear that he may again lose control of his behavior as a function of his delusions. -Today, the patient tells me that he recognizes that in his upcoming hearing on 11/30 (304) the issue may boil down to whether he can assure that he will be safe in the community and will not represent a risk to anyone else, even if he does not take medication. He also says that he recognizes the "Catch-22" that he is in because he realizes that the hospital is likely to say that his behavior in the hospital has been positively influenced by his taking olanzapine, and that without the structure of the hospital and without the medications, he may revert to the dangerous behaviors that precipitated the admission. -Of concern is the fact that the patient's tells us today that, effective yesterday, he has told her that he will no longer speak to her telephonically, and if he is released from the hospital on Saturday he will simply walk home, and if she is not comfortable being home with him she should leave. However, by the end of today he is allowing that he truly believes that his loves him and would not try to harm him if she had any choice, so he is at least considering contacting her again by telephone. 11/27 -Patient informed of 304 hearing and plan to refer to the [facility], as well as additional labs needed for that referral. -He continues to refuse a family meeting with his , who has expressed ongoing concern for her safety. He continues to refuse p.o. medication, outpatient treatment, and discussion of his aggression at home or plans to mitigate it. He remains at risk of harm to others, particularly his , and if discharged prematurely, as she is implicated in his delusion and he believes she has part of the conspiracy against him. -Encourage the patient to attend groups and focus on his own emotional reaction to his perception of events, healthy coping skills, and a discharge safety plan; all of which thus far he has been unwilling to do. 11/28 - 11/29 -Patient refused PPD, EKG, and chest x-ray for [facility] referral. He is refusing to consider a trial of Invega/MERCADO, and continues to refuse a family meeting. -304 involuntary commitment hearing scheduled for 12/01/2019, and will then pursue referral to the [facility]. 11/30 - 304 involuntary commitment granted today, referral to the [facility] is reportedly supported by the [facility] at this time - Pt was again offered PPD, EKG and CXR for [facility] referral, which he again declined - Although he is not overtly refusing medication changes, he does verbalize desire to give olanzapine "another week" before switching to another agent. 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 He remains delusional and without insight, refusing medication (although getting the IM of Zyprexa daily), a family meeting, or discharge planning/outpatient care. -Recommend referral to [facility] for long-term inpatient treatment, will simultaneously referring for a BCM and working on potential diversion plans. 12/02 - Continue IM olanzapine - as continues to refuse oral medications or discussion regarding alternative agents - Most documentation sent to [facility] for referral - awaiting 303 and 304 findings to be sent and will then fax these as well - Pt continues to decline medical tests generally requested as part of [facility] referral, but cannot force these studies to be done 12/03 -We will increase his dose of IM olanzapine to 12.5 mg at bedtime. The medication thus far does not seem to have had much of a favorable impact on the patient's delusional belief system, and he is not willing to consider antiobsessional medications in the form of a selective serotonin reuptake inhibitor. However, the patient is now sleeping better and his general demeanor has been more calm, more pleasant, and more self-possessed. -The patient reports that he does not feel that he is experiencing any side effects from olanzapine, but fall short of saying that it is helping him in any way, other than perhaps for sleep. He mentions that he sometimes has a pain in his left abdominal wall and lower rib cage that he says he does not feel as a side effect from medication but, rather, the result of his doing sit ups and his bedroom by placing his feet under the mattress and exercising in that way. 12/04 - 12/05 -Zyprexa 12.5 mg IM po qhs, sedation from yesterday seems to be resolving, can likely be increased tomorrow. 12/06 - Continue Zyprexa 12.5mg IM this evening - continue attempts to engage patient in conversation regarding dose increases or consideration of alternative agents - Pt continues to be unwilling to participate in conversation regarding alternative discharge plans to state hospitalization. He continues to refuse to involve his or any other outpatient support in safety/discharge planning. - Referral to [facility] was completed and is reportedly being reviewed. 12/07 - Titrating Zyprexa 15mg IM - patient continues to refuse offer for oral medications. Pt was offered discussion about alternative agents, but declined. - Referral officially received by [facility] on 12/02/2019 (304 findings to be sent once received) - awaiting response regarding acceptance decision - Continue attempts to engage patient in discharge and safety planning - patient continues to be unwilling to discuss possible diversion plans 12/08 - 12/09 - Continue Zyprexa 15mg IM - pt continuing to refuse oral medications - Awaiting response from [facility] regarding referral - Pt remains unwilling to participate in safety planning or exploring diversion plan 12/10 -Patient is exhibiting excess sedation add Zyprexa 15 mg IM at bedtime. Specifically, the patient is observed to be hypersomnolent, has been sleeping off and on throughout the days, and indicates that he feels that at this higher dose of Zyprexa he is experiencing some cognitive slowing. At the same time, he does not seem to be responding to Zyprexa either at high doses or at low doses, other than it may be contributing to his ability to maintain self possession and avoid these sorts of dyscontroled behaviors that precipitated the current admission (for example, breaking furniture, knocking holes in the [place] of his home, and tearing out shards of woodwork and ways that frightened his ). -The patient remains delusional and harbors an elaborate persecutory delusional system that he often hits that, but is reluctant to discuss in detail much of the time because he says that he fears that information that he shares with us will fall into the wrong hands and will interfere with his ability to expose those persons who he feels are responsible for the referenced "crimes against humanity." -The patient when asked, convincingly states that he is not having any thoughts of extracting retribution from the individuals and entities that he holds responsible for his delusional construct regarding "crimes against humanity," other than to expose them by publishing proof of their crimes. Specifically, he says that he has no plan to cause physical harm to the person or property of others and says that he will leave the question of punishment to those who are lawful he entitled to impose it. -Because the patient's delusional belief seem not to be responding favorably to olanzapine at the higher dose, and because he is exhibiting some symptoms of excess sedation associated with olanzapine at 15 mg daily, his dose of olanzapine (to be given IM if necessary for refusal of p.o. olanzapine) will be reduced to olanzapine 10 mg IM at bedtime, starting tonight. 12/11 The patient is less sedated at the 10 mg of olanzapine IM he continues to refuse oral medications. Provider did again re-present the role of an SSRI that may help but he is clear and adamant about refusal of all medications. 12/12 - he is slightly less sedated at 10mg olanzapine IM each hs, but is more agitated today that he had been and more profuse with this provider about his delusional beliefs and seeing this provider and all medical care here as passive pawns of a broader conspiracy through the [employer]. He continues to decline oral medications, or any form of aftercare for monitoring of irritability and agitation maintaining that he does not have any mental illness and that all he has is "truth." Presently his risk of continuing to incorporate anyone who disagrees with his delusion into the delusion, his unwillingness to take medications after discharge, and unwillingness to participate any form of routine relationship with a behavioral health provider after discharge, and incorporation of his in his delusional system with prior physical aggression are concerning. I believe ongoing inpatient hospitalization is most appropriate setting for care at this time 12/13 - Continue olanzapine 10mg IM each evening (patient continues to refuse PO medications or discussion regarding alternative agents. - Pt continues to appear sedated, though is spending more time out of his ro om in the afternoons. - Anticipate decision regarding [facility] referral in the next few days 12/14 - Continue current treatment plan, patient reporting improvement in fatigue today - Anticipate update from [facility] soon regarding decision on referral - Pt continues to be resistant to attempts to safety plan or discuss alternative discharge options 12/15 - Continue current treatment plan - patient reports he is better tolerating lower dose of olanzapine but still reports daytime fatigue - Explanation provided to patient regarding request for MRI, heavy metal studies, B12, and folate - patient is persistent in his unwillingness to have these studies completed at this time - Will attempt to gather more information regarding reports of a previous MRI - Could consider cognitive assessment such as MoCA - as patient was limited in his willingness to even discuss superficial details with this provider, cognitive assessment was not attempted today - Pt went outside with staff this afternoon - continue to offer intermittently and assess the appropriateness of his presentation 12/16 - Continue current treatment plan - olanzapine 10mg qHS. Pt continues to refuse PO medications but tolerates IM injections without incident - Pt again unwilling to consider studies to rule out organic causes for the presence of delusions. Although organic cause was questioned during initial admission, it appears less likely to be the case but of course cannot be entirely ruled out without patient's willingness to participate in these studies. History obtained from patient and suggest a long history of OCD characteristics and paranoia that appear to have developed into delusional and persecutory thinking. - Pt remains resistant to participating in appropriate safety and discharge planning and continues to refuse to involve in these steps. - Awaiting decision from [facility] regarding his referral, it continues to be the opinion of our treatment team that patient is an appropriate candidate for long-term hospitalization 12/17 - Continue current treatment plan. Pt escorted outside by staff today. - Received word that patient has been accepted to [facility]. They require that 304 reflect commitment being changed to their facility prior to being able to formally put patient on their waitlist. These changes have been requested through the [facility]. 12/18--Continue current meds and treatment plan. terfinafine as above. 12/19 - 12/20--Continue current meds and treatment plan. 12/21 - Continue current treatment plan - pt reports he is tolerating 7.5mg dose of olanzapine better - Pt formally placed on waitlist for [facility] today - updated 304 was received from the [facility] and faxed to [place] 12/22 - 12/23 - Continue current medications and treatment plan 12/24 -Patient reports that he feels that he is tolerating olanzapine 7.5 mg IM at bedtime fairly well, and notes that the adverse effect of excess somnolence that he was experiencing at higher doses has essentially resolved. The treatment team agrees that the patient has been more alert and, but he continues to refuse to attend groups. -Attempts to appeal to the patient's logic remain unsuccessful, which is quite typical of delusional disorder. However, he has not been able to neutralize data that seem to contradict his highly systematized delusional system, and when this occurs he tends to become surprisingly concrete with responses such as "well, I guess that only means I am a raving lunatic" or "look, I know what I know. These things are real, no matter what anyone says." -The patient's brother has contacted the treatment team. 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 The patient's brother reports that he, the brother, and their mother and the patient's for all researching alternatives to long-term psychiatric hospitalization in a [facility] hospital. While we would love to see that happen, it seems unlikely given the fact that the patient is completely lacking in insight and completely unwilling to participate in any form of psychiatric treatment voluntarily. 12/25 - Continue current medications and treatment plan - Pt states family has offered suggestions for alternative treatment settings to the [facility], but patient had had no motivation to discuss these further - Pt maintains highly sophisticated and fixed delusional thought content 12/26 - Continue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
[2020-01-12] MEDS: OLANZapine 5 MG TABLET PO SCH (21:19)
[2020-01-13] MEDS: MULTIVITAMIN PO SCH (09:38)
--- NOTE | 2020-01-13 09:38 | Discharge Summary ---
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 feels that it has helped him sleep better. However, he notes that his sleep difficulty is related to the fact that his sleep schedule in the hospital is substantially different from the one that he is used to at home, with bedtime here at the hospital being 3 or 4 hours earlier than he is used to. Nevertheless, he says that he believes that he is not having any side effects from olanzapine and that, in the sense that it does help him fall asleep, it helps. Nevertheless, he also repeats today that he will not continue to take any medication, including olanzapine, if he is discharged. -I spoke with the patient's today, without disclosing any protected clinical data regarding the patient. She acknowledges that he frightens her, and, particularly recently, has caused her to fear for her personal physical safety. At the same time, she says tells me that she thinks that if she gets some advice about how best to "handle somebody who is delusional" possibly by getting into individual therapy, herself, she may be able to take him home. She also reports that should he be released (she is aware of upcoming hearing) that she will agree to take him home, because she loves him and wants to protect him, but continues to fear that he may again lose control of his behavior as a function of his delusions. -Today, the patient tells me that he recognizes that in his upcoming hearing on 11/30 (304) the issue may boil down to whether he can assure that he will be safe in the community and will not represent a risk to anyone else, even if he does not take medication. He also says that he recognizes the "Catch-22" that he is in because he realizes that the hospital is likely to say that his behavior in the hospital has been positively influenced by his taking olanzapine, and that without the structure of the hospital and without the medications, he may revert to the dangerous behaviors that precipitated the admission. -Of concern is the fact that the patient's tells us today that, effective yesterday, he has told her that he will no longer speak to her telephonically, and if he is released from the hospital on Saturday he will simply walk home, and if she is not comfortable being home with him she should leave. However, by the end of today he is allowing that he truly believes that his loves him and would not try to harm him if she had any choice, so he is at least considering contacting her again by telephone. 11/27 -Patient informed of 304 hearing and plan to refer to the [facility], as well as additional labs needed for that referral. -He continues to refuse a family meeting with his , who has expressed ongoing concern for her safety. He continues to refuse p.o. medication, outpatient treatment, and discussion of his aggression at home or plans to mitigate it. He remains at risk of harm to others, particularly his , and if discharged prematurely, as she is implicated in his delusion and he believes she has part of the conspiracy against him. -Encourage the patient to attend groups and focus on his own emotional reaction to his perception of events, healthy coping skills, and a discharge safety plan; all of which thus far he has been unwilling to do. 11/28 - 11/29 -Patient refused PPD, EKG, and chest x-ray for [facility] referral. He is refusing to consider a trial of Invega/MERCADO, and continues to refuse a family meeting. -304 involuntary commitment hearing scheduled for 12/01/2019, and will then [facility]. 11/30 - 304 involuntary commitment granted today, referral to the [facility] is reportedly supported by the [facility] at this time - Pt was again offered PPD, EKG and CXR for [facility] referral, which he again declined - Although he is not overtly refusing medication changes, he does verbalize desire to give olanzapine "another week" before switching to another agent. 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 He remains delusional and without insight, refusing medication (although getting the IM of Zyprexa daily), a family meeting, or discharge planning/outpatient care. -Recommend referral to [facility] for long-term inpatient treatment, will simultaneously referring for a BCM and working on potential diversion plans. 12/02 - Continue IM olanzapine - as continues to refuse oral medications or discussion regarding alternative agents - Most documentation sent to [facility] for referral - awaiting 303 and 304 findings to be sent and will then fax these as well - Pt continues to decline medical tests generally requested as part of [facility] referral, but cannot force these studies to be done 12/03 -We will increase his dose of IM olanzapine to 12.5 mg at bedtime. The medication thus far does not seem to have had much of a favorable impact on the patient's delusional belief system, and he is not willing to consider antiobsessional medications in the form of a selective serotonin reuptake inhibitor. However, the patient is now sleeping better and his general demeanor has been more calm, more pleasant, and more self-possessed. -The patient reports that he does not feel that he is experiencing any side effects from olanzapine, but fall short of saying that it is helping him in any way, other than perhaps for sleep. He mentions that he sometimes has a pain in his left abdominal wall and lower rib cage that he says he does not feel as a side effect from medication but, rather, the result of his doing sit ups and his bedroom by placing his feet under the mattress and exercising in that way. 12/04 - 12/05 -Zyprexa 12.5 mg IM po qhs, sedation from yesterday seems to be resolving, can likely be increased tomorrow. 12/06 - Continue Zyprexa 12.5mg IM this evening - continue attempts to engage patient in conversation regarding dose increases or consideration of alternative agents - Pt continues to be unwilling to participate in conversation regarding alternative discharge plans to state hospitalization. He continues to refuse to involve his or any other outpatient support in safety/discharge planning. - Referral to [facility] was completed and is reportedly being reviewed. 12/07 - Titrating Zyprexa 15mg IM - patient continues to refuse offer for oral medications. Pt was offered discussion about alternative agents, but declined. - Referral officially received by [facility] on 12/02/2019 (304 findings to be sent once received) - awaiting response regarding acceptance decision - Continue attempts to engage patient in discharge and safety planning - patient continues to be unwilling to discuss possible diversion plans 12/08 - 12/09 - Continue Zyprexa 15mg IM - pt continuing to refuse oral medications - Awaiting response from [facility] regarding referral - Pt remains unwilling to participate in safety planning or exploring diversion plan 12/10 -Patient is exhibiting excess sedation add Zyprexa 15 mg IM at bedtime. Specifically, the patient is observed to be hypersomnolent, has been sleeping off and on throughout the days, and indicates that he feels that at this higher dose of Zyprexa he is experiencing some cognitive slowing. At the same time, he does not seem to be responding to Zyprexa either at high doses or at low doses, other than it may be contributing to his ability to maintain self possession and avoid these sorts of dyscontroled behaviors that precipitated the current admission (for example, breaking furniture, knocking holes in the mckeon of his home, and tearing out shards of woodwork and ways that frightened his ). -The patient remains delusional and harbors an elaborate persecutory delusional system that he often hits that, but is reluctant to discuss in detail much of the time because he says that he fears that information that he shares with us will fall into the wrong hands and will interfere with his ability to expose those persons who he feels are responsible for the referenced "crimes against humanity." -The patient when asked, convincingly states that he is not having any thoughts of extracting retribution from the individuals and entities that he holds responsible for his delusional construct regarding "crimes against humanity," other than to expose them by publishing proof of their crimes. Specifically, he says that he has no plan to cause physical harm to the person or property of others and says that he will leave the question of punishment to those who are lawful he entitled to impose it. -Because the patient's delusional belief seem not to be responding favorably to olanzapine at the higher dose, and because he is exhibiting some symptoms of excess sedation associated with olanzapine at 15 mg daily, his dose of olanzapine (to be given IM if necessary for refusal of p.o. olanzapine) will be reduced to olanzapine 10 mg IM at bedtime, starting tonight. 12/11 The patient is less sedated at the 10 mg of olanzapine IM he continues to refuse oral medications. Provider did again re-present the role of an SSRI that may help but he is clear and adamant about refusal of all medications. 12/12 - he is slightly less sedated at 10mg olanzapine IM each hs, but is more agitated today that he had been and more profuse with this provider about his delusional beliefs and seeing this provider and all medical care here as passive pawns of a broader conspiracy through the [employer]. He continues to decline oral medications, or any form of aftercare for monitoring of irritability and agitation maintaining that he does not have any mental illness and that all he has is "truth." Presently his risk of continuing to incorporate anyone who disagrees with his delusion into the delusion, his unwillingness to take medications after discharge, and unwillingness to participate any form of routine relationship with a behavioral health provider after discharge, and incorporation of his in his delusional system with prior physical aggression are concerning. I believe ongoing inpatient hospitalization is most appropriate setting for care at this time 12/13 - Continue olanzapine 10mg IM each evening (patient continues to refuse PO medications or discussion regarding alternative agents. - Pt continues to appear sedated, though is spending more time out of his room in the afternoons. - Anticipate decision regarding [facility] referral in the next few days 12/14 - Continue current treatment plan, patient reporting improvement in fatigue today - Anticipate update from [facility] soon regarding decision on referral - Pt continues to be resistant to attempts to safety plan or discuss alternative discharge options 12/15 - Continue current treatment plan - patient reports he is better tolerating lower dose of olanzapine but still reports daytime fatigue - Explanation provided to patient regarding request for MRI, heavy metal studies, B12, and folate - patient is persistent in his unwillingness to have these studies completed at this time - Will attempt to gather more information regarding reports of a previous MRI - Could consider cognitive assessment such as MoCA - as patient was limited in his willingness to even discuss superficial details with this provider, cognitive assessment was not attempted today - Pt went outside with staff this afternoon - continue to offer intermittently and assess the appropriateness of his presentation 12/16 - Continue current treatment plan - olanzapine 10mg qHS. Pt continues to refuse PO medications but tolerates IM injections without incident - Pt again unwilling to consider studies to rule out organic causes for the presence of delusions. Although organic cause was questioned during initial admission, it appears less likely to be the case but of course cannot be entirely ruled out without patient's willingness to participate in these studies. History obtained from patient and suggest a long history of OCD characteristics and paranoia that appear to have developed into delusional and persecutory thinking. - Pt remains resistant to participating in appropriate safety and discharge planning and continues to refuse to involve in these steps. - Awaiting decision from [facility] regarding his referral, it continues to be the opinion of our treatment team that patient is an appropriate candidate for long-term hospitalization 12/17 - Continue current treatment plan. Pt escorted outside by staff today. - Received word that patient has been accepted to [facility]. They require that 304 reflect commitment being changed to their facility prior to being able to formally put patient on their waitlist. These changes have been requested through the [facility]. 12/18--Continue current meds and treatment plan. terfinafine as above. 12/19 - 12/20--Continue current meds and treatment plan. 12/21 - Continue current treatment plan - pt reports he is tolerating 7.5mg dose of olanzapine better - Pt formally placed on waitlist for [facility] today - updated 304 was received from the [facility] and faxed to [facility] 12/22 - 12/23 - Continue current medications and treatment plan 12/24 -Patient reports that he feels that he is tolerating olanzapine 7.5 mg IM at bedtime fairly well, and notes that the adverse effect of excess somnolence that he was experiencing at higher doses has essentially resolved. The treatment team agrees that the patient has been more alert and, but he continues to refuse to attend groups. -Attempts to appeal to the patient's logic remain unsuccessful, which is quite typical of delusional disorder. However, he has not been able to neutralize data that seem to contradict his highly systematized delusional system, and when this occurs he tends to become surprisingly concrete with responses such as "well, I guess that only means I am a raving lunatic" or "look, I know what I know. These things are real, no matter what anyone says." -The patient's brother has contacted the treatment team. 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 The patient's brother reports that he, the brother, and their mother and the patient's for all researching alternatives to long-term psychiatric hospitalization in a [facility]. While we would love to see that happen, it seems unlikely given the fact that the patient is completely lacking in insight and completely unwilling to participate in any form of psychiatric treatment voluntarily. 12/25 - Continue current medications and treatment plan - Pt states family has offered suggestions for alternative treatment settings to the [facility], but patient had had no motivation to discuss these further - Pt maintains highly sophisticated and fixed delusional thought content 12/26 - Continue current medications and treatment plan - Awaiting bed date from [facility]; patient officially on waitlist 12/27 - Continue olanzapine 7.5mg qHS, patient continues to take the medication IM as he continues to refuse the offer for PO - Awaiting bed date from [facility]; patient remains on official waitlist - Pt was able to discuss more of his delusional beliefs today, claiming he will not participate in any discussions toward diversion from the [facility] discharge plan as even the safety plan would be controlled by the "system" and cannot be trusted. He continues to believe that this same "system" is to blame for provoking his anger outbursts prior to admission. These delusional beliefs remain fixed and are unlikely to be fully mitigated in the acute inpatient setting - recommendation remains for extended inpatient psychiatric hospitalization, and patient has been accepted at [facility] in order to complete this necessary treatment. - His is unwilling to commit to medications on discharge, unwilling to sign paperwork to complete outpatient psychiatric referrals, and continues to imply that additional steps would be necessary by the "system" in order to ensure the "safety of my ." 12/28 - Continue current medications and treatment plan - Awaiting bed date from [facility]; patient officially on waitlist - Pt was again offered to discuss alternative antipsychotic medication options to include oral and MERCADO options - patient declines 12/29 - Continue current medication regimen and treatment plan - Awaiting bed date from [facility] - Pt escorted outside by staff today 12/30 - 12/31 - Continue current medication regimen and treatment plan - Awaiting bed date from [facility] 12/31 -There may have been a substantial breakthrough today. The patient now says that he would be willing for us to meet together with himself and his , Chio, in order to discuss our observations about him, our concerns, and our findings. He notes that he will give us permission for that, either in writing if necessary, or simply by being present while we speak with her and verbally giving permission. -Patient also says that he would like to be di[facility], and provides a convincing explanation as to why he will be able to control his behaviors in the community if he returned home with his . -Control seems to be a central theme for this patient, both in terms of his delusions and, especially can tell, in terms of his upbringing. Today, I am willing to allow him the control of deciding not to take psychiatric medications for at least the next several days they have demonstrating that he is, in fact, able to maintain control of his behaviors, regardless of what believes he may harbor. Specifically, he tells us that he expects to show us that he is in no way prone to violence, is in no way meaning to frightened anyone, and is in no way intending to cause physical harm to the person or property of others. -Oral and intramuscular olanzapine is being held beginning ton and through the weekend. This will be reconsidered by the treatment team on Saturday. 01/01 -Behaviorally and affectively stable this morning. We will watch over weekend off of olanzapine which will be restarted if there is evidence of increased agitation or worsening of delusional preoccupation -Patient indicates his is flexible schedule would likely allow her to participate in a family meeting any day and this coming week however he wishes to discuss goals of meeting with Dr. Garcia before scheduling 01/02 -While systemized delusions are unresolved, he seems to be demonstrating some increased flexibility in his willingness to participate in treatment planning which may ultimately allow for diversion from [facility]. It is possible that he will ultimately decompensate off of the antipsychotic regarding stability of affect and behavior however so far so good off the Zyprexa over the weekend. We will hopefully be planning to involve his this week in a meeting to discuss options. 01/03 -Patient reporting feeling better off antipsychotic medication, and remains unwilling to take po meds. He has remained in good behavioral control without noticeable increase in delusions/paranoia. He is willing to have a meeting with his to discuss his difficulties and explore the option of diversion from the [facility]. Reviewed the treatment recommendations including medication, therapy, psychiatric care, and case management. 01/04 -More paranoid, had agreed to sign an EB and have a meeting with his , but then changed his mind and is now refusing. Antipsychotic medication may have been helping with paranoia, and has now been off medication x 4 days and appears more paranoid and irritable. Will reorder olanzapine 5mg PO at HS and recommend return to medications over objection if he declines, due to ongoing and debilitating psychotic symptoms. Dr. Christopher can see him later this week for a second opinion. 01/05 - Pt does present as more paranoid, though adamantly denies that this is the case. Continue to offer olanzapine 5mg qHS with ongoing consideration if medication over objection should be resumed. - At this point, he is unwilling to provide written or verbal consent to allow for communication with his - therefore, we are unable to pursue any attempts for diversion - Received updated from [facility] regarding bed date details. Possibility of bed availability in "early January". Pt will require 2 negative COVID-19 test prior to transfer - will attempt to gather more information regarding the necessary timeline of these tests. He has not demonstrated any signs or symptoms of COVID-19 during his hospitalization. 01/06 - Continues to refuse oral olanzapine 5mg - will reassess for consideration for medications over objection - Pt continues to report paranoia regarding signing an EB for his , states he is seeking legal researcher on this topic - Pt was escorted outside by staff today 01/07 -The patient continues to a certain amount of paranoia. He did agree to sign a release of information so that we could meet with his today in order to focus on aftercare planning. However, he was somewhat ambivalent about signing a similar release of information for his brother. Despite this, the patient also signed a release of information as part of the plan for aftercare treatment ([facility] [place] -The patient met with his today in a fairly emotional meeting and was able to offer her convincing reassurances about his commitment to her, and to their marriage, and to his decision to strenuously avoid violent or otherwise dyscontroled behaviors. -The patient's , with assistance from her [id number], the patient's brother Joseph, and with help from the patient, will begin to get estimates and timelines for movers to help him transport their personal belongings from there rental home in [place] with a both hope will be there permanent no home in [place]. The patient's acknowledges that she has already largely packed the house and does not feel she will need much additional time to get ready. -The patient's brother has advised us that he will help assure that the receives aftercare treatment in [place]. 01/12 -Patient has been much brighter, less paranoid, and more interactive with others over the past 5 days. He has not voiced delusional thoughts, and has been making plans for relocation to [place] with his , to occur in the next month. He is willing to follow-up with Dr. Christopher at [facility] in the interim, and is scheduled for an intake in 1 week. He continues to decline antipsychotic medication, and does not feel that it was helpful. He remains in good behavioral control, and his and brother both feel safe with discharge. He will not be placed on a [address] [place] [address], as he plans to move out of [facility] within the next month. He has been advised of the option for medication, both for paranoia/delusions or for OCD, if these symptoms should worsen in the future. His is also aware of crisis resources and was provided information about [facility] and other local mental health services if needed. Mental Health & Subst Abuse Tx Psychiatrist Name of Psychiatrist: [facility] [place] - [place]. Crhistopher Psychiatrist's Date of Appointment with Psychiatrist: 01/20/20 Time of Appointment with Psychiatrist: 9:00 a.m. Psychiatric Appointment Comment: [address], [address], [place] Post Discharge Appointments Primary Care Physician Name Of Family Doctor: . Primary Care Phone Number: . Time of Appointment with PCP: . Provider Appointment Comment: . Smoking Cessation Counseling Tobacco Cessation Medication Prescribed at Discharge: Not Applicable/Non-Smoker Contact Information Discharge Discharge Address: [address] [place] [address], [address], [place] [address] Discharge Plan Discharge Items Patient Disposition: Home - Self-Care Reason For Visit: UNSPECIFIED MOOD DISORDER Discharge Diagnosis: Delusional disorder Obsessive compulsive traits Condition on Discharge: Good Activity: Per Instructions section Non-emergency contact: Psychiatrist Call non-emergency contact if: your symptoms worsen Follow-up/Referrals: Jeffrey Torres [Primary Care Provider] - Diet: Regular Addtl Attending Provider Instructions: SPECIAL CARE INSTRUCTIONS: 1. Follow through with your scheduled aftercare appointments. If unable to keep an appointment, please call to reschedule. 2. You are not on medications currently, but if symptoms worsen, you can talk to your outpatient psychiatrist about the option of medication. 3. Utilize new healthy coping skills, anger management skills, and stress management skills learned during your hospitalization. Journal feelings and process them with a support person. Identify stressors or situations that may result in relapse, deterioration or inappropriate behaviors and develop a plan to deal with those issues. 4. If your coping skills are ineffective and you are in crisis, contact your outpatient providers for direction. If unable to reach your providers, please call the CAN HELP LINE AT or go to the closest Emergency Room. 5. Avoid alcohol and un-prescribed drugs. 6. You have been provided with the Mental Health Advance Directives Pamphlet for your review. AFTERCARE APPOINTMENTS: * Please call your insurance company prior to your scheduled appointment to confirm your aftercare providers are covered. Take your insurance information to your appointments. WHO TO CALL AND WHEN: Medical Emergencies: For questions or emergencies related to your hospital stay, please contact the Inpatient Behavioral Health Unit at [phone]. A crisis clinician is on-call 11/03 for the Behavioral Health Unit for emergencies At any time you feel your situation is an emergency, you may also call 911 immediately. Your Doctors Instructions noted above were prepared by provider Rhonda Garcia MD. Pending Studies at Discharge: No Stand-Alone Forms: My [facility], Smoking Cessation, Suicide Prevention Resources Medications and DC Order Prescriptions: No Action No Known Home Medications RF: 0 Discharge Orders: Discharge Order (Routine); Ordered 01/13/20 Ordered By: Rhonda Garcia Admission Data Admit Date/Time: 11/14/19 19:58 Attending Provider: Rhonda Garcia Admit Provider: Abram Duarte Primary Care Provider: Jeffrey Torres Other Interventions: Discharge Summary Assessment (RN) Last Done: 01/13/20 09:39 PSY Interdisciplinary Discharge Planning Last Done: 01/13/20 09:47 DC Date/Time DO NOT enter until pt leaves facility: 01/13/20 10:34 Coding Level of Care Code 93635 D/C day mgmt > 30 min Diagnoses Delusional disorder [id number]
== END 2020-01-13 10:34 | disposition home or self-care (01) | DRG 885 ==
LOC: ED 15:55 → SUATTDRO 19:58 → 3S 19:58